=== PATIENT | female | born 1945 | race African-American/Black ===

== ENCOUNTER 2016-02-13 17:31 | Emergency (ER) | payer OTHER ==
[~2016-02-13] VITALS: Ht 168.9 cm; Wt 91.6 kg
[~2016-02-13 17:31] MED LIST: CEFD300C3 PO; CLOP1TAB15 PO; CTP/1 PO; DICL1GEL12 EXT; FERR1TAB13 PO; FURO-85 PO; LISI40TA PO; LORA-741 PO; MELA1CAP5 PO; METO100T14 PO; PANT40TA PO; POTA550T4 PO; ROSU20TA PO
[2016-02-13 17:38] VITALS: TEMP 36.5; Ht 168.9 cm; Wt 91.6 kg
--- NOTE | 2016-02-13 20:30 | EMERGENCY ROOM VISIT NOTE ---
History Report prepared by [place]: Harper Miller Under the Supervision of: Dr. Stephanie Bethea M.D. First contact with patient: 19:58 Chief Complaint: RIB PAIN Stated Complaint: PAIN, RT RIBS History of Present Illness The patient is a 70 year old female who presents to the Emergency Room with complaints of worsening right lower rib pain for the past 2 weeks. The patient states that she fell because "the bed rails were in the wrong place." She injured her right hip and right lower ribs at that time. She states that her hip pain and bruising have improved, but her rib pain has not. She rates her current pain as a 9/10 in severity. She has been taking Dilaudid for pain and states that it was helping, but today she ran out of her pain medication. Source of History: patient Onset: 2 weeks ago Position: other (right lower ribs) Symptom Intensity: 9/10 Timing: worsening Modifying Factors (Relieving): narcotics (Dilaudid) Review of Systems See HPI for pertinent positives & negatives. A total of 10 systems reviewed and were otherwise negative. 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 (13) loose glenoid (14) Opioid Dependence-Unspec (15) Other Chronic Pain (16) Pure Hypercholesterolem (17) Recurrent falls (18) Rheumatoid arthritis (19) Sleep apnea Surgical Problems: (1) Cholecystectomy (2) Hysterectomy Family History Diabetes mellitus FH: heart disease Hypertension Kidney disease Kidney stones Seizures Stroke Social History Smoking Status: Never Smoker Alcohol Use: none Drug Use: none Marital Status: Housing Status: lives alone Occupation Status: retired Current/Historical Medications Scheduled Amlodipine (Norvasc), 5 MG PO QAM Aspirin (Aspirin 81), 1 TAB PO QAM Cefdinir (Cefdinir), 300 MG PO BID Citalopram (Citalopram Hydrobromide), 40 MG PO QAM Clonidine Hcl (Catapres), 0.1 MG PO BID Clopidogrel (Plavix), 75 MG PO DAILY Docusate Sodium (Docusate Sodium), 1 CAP PO QAM Ferrous Sulfate (Kp Ferrous Sulfate), 1 TAB PO BID Furosemide (Lasix), 1 TAB PO DAILY Gabapentin (Gabapentin), 600 MG PO BID Hydromorphone Hcl (Hydromorphone Hcl), 4 MG PO BID Ipratropium-Albuterol (Combivent Respimat), 2 PUFF INH QID Lisinopril (Prinivil), 40 MG PO QAM Lorazepam (Ativan), 0.5 MG PO TID Asokbndlj-Rzwltesa-Xqsctaexg-P (Sleep), 10 MG PO HS Metoprolol Tartrate (Lopressor) (Lopressor), 100 MG PO QPM Pantoprazole (Protonix), 40 MG PO QAM Potassium Gluconate (Potassium Gluconate), 550 MG PO QAM Rosuvastatin Calcium (Crestor), 20 MG PO QAM Sitagliptin-Metformin Hcl (Janumet), 1 TAB PO BID Scheduled PRN Diclofenac Sodium (Topical) (Voltaren 1% Top Gel), 1 APPLN EXT QID PRN for Pain Ipratropium-Albuterol (Duoneb), 1 TREATMENT INH Q6 PRN for SOB/Wheezing Polyethylene Glycol 3350 (Miralax), 17 GM PO HS PRN for Constipation Allergies Coded Allergies: Cephalosporins (Verified Allergy, Unknown, RINGING OF EARS,FALLING BALANCE ISSUES, 02/13/16) Prochlorperazine (Verified Allergy, Unknown, STROKE LIKE SYMPTOMS, CAN'T TALK, 02/13/16) Morphine (Verified Adverse Reaction, Unknown, NOT EFFECTIVE, 02/13/16) Tramadol (Verified Adverse Reaction, Unknown, UNSTEADY ON FEET, HYPERACTIVITYY, 02/13/16) Physical Exam Vital Signs Date Time Temp Pulse Resp B/P Pulse Ox O2 Delivery O2 Flow Rate FiO2 02/13/16 22:00 86 20 143/74 97 Room Air 02/13/16 20:00 104 20 131/82 98 Room Air 02/13/16 17:38 36.5 97 18 118/66 97 Room Air Physical Exam Vital signs reviewed. General: Well-appearing 70 year old female, in no significant distress. HEENT: No scleral icterus, PERRLA, neck supple. Atraumatic. Cardiovascular: Regular rate and rhythm, no extra sounds. Pulmonary: Clear to auscultation bilaterally, normal work of breathing. Abdomen: Soft, nontender, nondistended, positive bowel sounds. Musculoskeletal: Atraumatic, no peripheral edema. Tender over the right flank. Neurologic: Patient awake alert and oriented x 3, full strength in all 4 extremities. Cranial nerves 2 through 12 grossly intact. Ambulatory Skin: Warm, dry, no rash Medical Decision & Procedures ER Provider Diagnostic Interpretation: Radiology results as stated below per my review and radiologist interpretation: RIGHT RIBS UNILATERAL WITH PA CHEST CLINICAL HISTORY: Right posterior lower rib pain following fall. COMPARISON STUDY: Chest radiograph and chest CT October 01, 2015. FINDINGS: There is no pneumothorax or pleural effusion. Pulmonary vascularity is normal. Lungs are clear. Cardiomediastinal silhouette is stable. An IVC filter is noted. No acute right rib fractures are identified although study is mildly compromised due to difficulty with positioning. IMPRESSION: No pneumothorax. No acute right rib fractures identified although sensitivity diminished due to difficulty with positioning. Electronically signed by: Jerome Lowry M.D. 02/13/2016 9:27 PM Medications Administered Medications (Trade) Dose Ordered Sig/Krystal Route Start Time Stop Time Status Last Admin Dose Admin Hydromorphone HCl (Dilaudid Tab) 4 mg NOW STAT PO 02/13/16 21:32 02/13/16 21:33 DC 02/13/16 21:37 4 MG ED Course 1957: Past medical records reviewed. The patient was evaluated in room C12B. A complete history and physical examination was performed. 2131: Dilaudid 4 mg PO 2230: I reassessed the patient at this time. She is feeling better and resting comfortably. I discussed the results and treatment plan with the patient. I answered all pertaining questions that she had. She expressed understanding and verbalized agreement. The patient will be discharged home. Medical Decision Differential diagnoses includes rib fracture, pneumonia, pleural effusion, muscular strain, pneumothorax. This pt was evaluated and appeared to be in no distress. CXR w ribs was performed and reveals no acute injury. Pt was given dilaudid 4 mg po. She in on a no narcs scripts treatment plan from our dept. I discussed the situation with the pt after looking her up on PDMP. Pt states her PCP does not Rx her narcotics and she was "booted" from pain management d/t overuse of her medications. I do not feel comfortable Rx narcotics from the ED. She will f/u with her PCP and return to the ED for worsening of sx or any medical concerns. Impression Primary Impression: Rib pain on right side Scribe Attestation The scribe's documentation has been prepared under my direction and personally reviewed by me in its entirety. I confirm that the note above accurately reflects all work, treatment, procedures, and medical decision making performed by me. Departure Information Dispostion Home / Self-Care Referrals Peter Garcia M.D. (PCP) Forms HOME CARE DOCUMENTATION FORM, IMPORTANT VISIT INFORMATION, WORK / SCHOOL INSTRUCTIONS Patient Instructions A Signature Page, My [facility] Additional Instructions Diagnosis: Right sided rib pain Contact your physician or pharmacy tomorrow regarding refills of your pain medication. Warm compresses and gentle stretching for relief of her discomfort. Deep breathing and coughing several times every hour while awake to prevent pneumonia Follow-up with your physician this week for reevaluation if symptoms persist. Return to the emergency department for worsening of symptoms or any medical concerns.
--- NOTE | 2016-02-13 21:29 | DIAGNOSTIC IMAGING REPORT ---
RIGHT RIBS UNILATERAL WITH PA CHEST CLINICAL HISTORY: Right posterior lower rib pain following fall. COMPARISON STUDY: Chest radiograph and chest CT October 01, 2015. FINDINGS: There is no pneumothorax or pleural effusion. Pulmonary vascularity is normal. Lungs are clear. Cardiomediastinal silhouette is stable. An IVC filter is noted. No acute right rib fractures are identified although study is mildly compromised due to difficulty with positioning. IMPRESSION: No pneumothorax. No acute right rib fractures identified although sensitivity diminished due to difficulty with positioning. Electronically signed by: Jerome Lowry M.D. 02/13/2016 9:27 PM
[2016-02-13] MEDS ORDERED: HYDROmorphone HCL 2 MG TAB PO STA (21:32)
[2016-02-13 22:00] VITALS: BP 143/74; PULSE 86; O2SAT 97
[2016-05-18] MEDS ORDERED: CITA40TA4 PO (00:53)
[2016-05-18] MEDS ORDERED: IPRASOL4 NEB (02:54)
[2016-05-18] MEDS ORDERED: GABA1CAP4 PO (10:16)
[2016-05-18] MEDS ORDERED: SITA50TA5 PO (10:16)
[2016-05-18] MEDS ORDERED: POLY335019 PO (10:21)
[2016-05-18] MEDS ORDERED: AMLO-110 PO (11:54)
[2016-05-18] MEDS ORDERED: DOCU100C31 PO (11:54)
[2016-05-18] MEDS ORDERED: POTA1TAB PO (13:41)
[2016-05-18] MEDS ORDERED: MAGN400T6 PO (13:51)
[2016-05-18] MEDS ORDERED: MELA1TAB54 PO (13:51)
[2016-05-18] MEDS ORDERED: ZOLP5TAB PO (14:59)
[2016-05-18] MEDS ORDERED: IPRA1AER2 INH (16:29)
[2016-05-18] MEDS ORDERED: ASPI-435 PO (18:16)
[2016-05-18] MEDS ORDERED: ATV5X PO (20:36)
[2016-05-18] MEDS ORDERED: METO100T14 PO (20:36)
[2016-05-18] MEDS ORDERED: HYDR2TAB2 PO (20:37)
[2016-05-18] MEDS ORDERED: LSX40 PO (20:37)
[2016-05-18] MEDS ORDERED: DICL1GEL34 TOP (20:39)
[2016-05-18] MEDS ORDERED: PRT/40 PO (20:40)
[2016-05-18] MEDS ORDERED: ROSU20TA22 PO (20:40)
[2016-05-18] MEDS ORDERED: LINE1TAB2 PO (20:41)
[2016-05-18] MEDS ORDERED: PLV75 PO (20:41)
[2016-05-18] MEDS ORDERED: LSN40 PO (20:42)
[2016-05-18] MEDS ORDERED: FERR325T5 PO (20:46)
[2016-05-18] MEDS ORDERED: ASPI81TA28 PO (21:07)
[2016-05-18] MEDS ORDERED: CTP1CL PO (21:08)
[2016-05-20] MEDS ORDERED: MAGN400T6 PO (10:05)
[2016-05-20] MEDS ORDERED: FAMO20TA12 PO (10:05)
[2016-07-18] MEDS ORDERED: MAGN400T6 PO (14:23)
== END 2016-02-13 22:30 | disposition home or self-care (01) ==
LOC: C.EDB 17:33 → C.EDC 22:30
DX: R07.81 Pleurodynia (principal); W19.XXXA Unspecified fall, initial encounter; J45.909 Unspecified asthma, uncomplicated; I50.9 Heart failure, unspecified; G89.29 Other chronic pain; M54.9 Dorsalgia, unspecified; E11.9 Type 2 diabetes mellitus without complications; M10.9 Gout, unspecified; I10 Essential (primary) hypertension; E78.00 Pure hypercholesterolemia, unspecified; M06.9 Rheumatoid arthritis, unspecified; G47.30 Sleep apnea, unspecified; Z90.49 Acquired absence of other specified parts of digestive tract; Z90.710 Acquired absence of both cervix and uterus; Z83.3 Family history of diabetes mellitus; Z82.49 Family history of ischemic heart disease and other diseases of the circulatory system; Z82.0 Family history of epilepsy and other diseases of the nervous system; Z79.82 Long term (current) use of aspirin; Z79.899 Other long term (current) drug therapy

== ENCOUNTER 2016-03-07 19:03 | Emergency (ER) | payer OTHER ==
[~2016-03-07] VITALS: Ht 170.2 cm; Wt 91.0 kg
[2016-03-07 19:08] VITALS: TEMP 36.5; Ht 170.2 cm; Wt 91.0 kg
--- NOTE | 2016-03-07 19:28 | EMERGENCY ROOM VISIT NOTE ---
History Report prepared by [place]: Devan Sanchez Under the Supervision of: Dr. Anand Renner M.D. First contact with patient: 19:15 Chief Complaint: PAIN (GENERALIZED) Stated Complaint: PAIN, LOST APETITE, WEAK History of Present Illness The patient is a 71 year old female who presents to the Emergency Room with complaints of persistent left shoulder pain that began many years ago. She has a history of surgery on that shoulder and wears a shoulder brace 24 hours per day. She says she ran out of pain medicine 2 days ago and wants pain medicine. The patient saw Dr. Dang, and the doctor sent the patient to see a doctor in [place]. She says that she had episodes of diarrhea yesterday morning, and then proceeded to go to [place] to see the doctor. The doctor said that he could do surgery on March 25, but there is still concern over an infection the patient has been having. The patient is diabetic. Source of History: patient Onset: Many years ago Position: shoulder (right) Symptom Intensity: bad enough that she wants more pain medicine Timing: other (persistent) Note: No associated symptoms noted. Review of Systems See HPI for pertinent positives & negatives. A total of 10 systems reviewed and were otherwise negative. 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 (13) loose glenoid (14) Opioid Dependence-Unspec (15) Other Chronic Pain (16) Pure Hypercholesterolem (17) Recurrent falls (18) Rheumatoid arthritis (19) Sleep apnea Surgical Problems: (1) Cholecystectomy (2) Hysterectomy Family History Diabetes mellitus FH: heart disease Hypertension Kidney disease Kidney stones Seizures Stroke Social History Smoking Status: Current Every Day Smoker Alcohol Use: none Drug Use: none Marital Status: Housing Status: lives alone Occupation Status: retired Current/Historical Medications Scheduled Amlodipine (Norvasc), 5 MG PO QAM Aspirin (Aspirin 81), 1 TAB PO QAM Cefdinir (Cefdinir), 300 MG PO BID Citalopram (Citalopram Hydrobromide), 40 MG PO QAM Clonidine Hcl (Catapres), 0.1 MG PO BID Clopidogrel (Plavix), 75 MG PO DAILY Docusate Sodium (Docusate Sodium), 1 CAP PO QAM Ferrous Sulfate (Kp Ferrous Sulfate), 1 TAB PO BID Furosemide (Lasix), 1 TAB PO DAILY Gabapentin (Gabapentin), 600 MG PO BID Hydromorphone Hcl (Hydromorphone Hcl), 4 MG PO BID Ipratropium-Albuterol (Combivent Respimat), 2 PUFF INH QID Lisinopril (Prinivil), 40 MG PO QAM Lorazepam (Ativan), 0.5 MG PO TID Mpzjuxywf-Iqtwsgod-Puljdizec-P (Sleep), 10 MG PO HS Metoprolol Tartrate (Lopressor) (Lopressor), 100 MG PO QPM Pantoprazole (Protonix), 40 MG PO QAM Potassium Gluconate (Potassium Gluconate), 550 MG PO QAM Rosuvastatin Calcium (Crestor), 20 MG PO QAM Sitagliptin-Metformin Hcl (Janumet), 1 TAB PO BID Scheduled PRN Diclofenac Sodium (Topical) (Voltaren 1% Top Gel), 1 APPLN EXT QID PRN for Pain Ipratropium-Albuterol (Duoneb), 1 TREATMENT INH Q6 PRN for SOB/Wheezing Polyethylene Glycol 3350 (Miralax), 17 GM PO HS PRN for Constipation Allergies Coded Allergies: Cephalosporins (Verified Allergy, Unknown, RINGING OF EARS,FALLING BALANCE ISSUES, 02/13/16) Prochlorperazine (Verified Allergy, Unknown, STROKE LIKE SYMPTOMS, CAN'T TALK, 02/13/16) Morphine (Verified Adverse Reaction, Unknown, NOT EFFECTIVE, 02/13/16) Tramadol (Verified Adverse Reaction, Unknown, UNSTEADY ON FEET, HYPERACTIVITYY, 02/13/16) Physical Exam Vital Signs Date Time Temp Pulse Resp B/P Pulse Ox O2 Delivery O2 Flow Rate FiO2 03/07/16 19:08 36.5 85 16 153/81 96 Room Air Physical Exam CONSTITUTIONAL: No acute distress. HEENT: No icterus, moist mucous membranes NECK: No meningismus, trachea is midline. CARDIOVASCULAR: Regular rate, normal perfusion RESPIRATORY: Unlabored breathing. Clear to auscultation. GASTROINTESTINAL: Non-tender GENITOURINARY: No flank tenderness MUSCULOSKELETAL: Sling to left shoulder, boot to left foot s/p fx NEUROLOGIC: No acute gross focal deficits. PSYCHIATRIC: Normal affect SKIN: Normal for ethnicity. Medical Decision & Procedures ED Course 1916: Past medical records reviewed. The patient was evaluated in room C3. A complete history and physical examination was performed. The patient verbally expressed understanding and agreement of the treatment plan. The patient will be discharged. Medical Decision Differential diagnoses include: opiate dependence, addiction. 71-year-old noted to be on our ED treatment plan with multiple orthopedic injuries and complaints presents to ED because she has run out of her pain medications like more in the emergency room tonight. Her preference is to be admitted to the hospital for her pain, in fact. She has no acute complaints. She was advised that she is to arrange for all non-emergent analgesic needs to be obtained through her primary doctor. Case management spoke with patient about available resources and importance of following up with her doctor. Impression Primary Impression: Chronic pain Scribe Attestation The scribe's documentation has been prepared under my direction and personally reviewed by me in its entirety. I confirm that the note above accurately reflects all work, treatment, procedures, and medical decision making performed by me. Departure Information Dispostion Home / Self-Care Referrals Radha Gonzalez (PCP) Forms HOME CARE DOCUMENTATION FORM, IMPORTANT VISIT INFORMATION, WORK / SCHOOL INSTRUCTIONS Patient Instructions Chronic Pain, My [facility]
[2016-03-07] MEDS ORDERED: TPRSR/100 PO (19:30)
[2016-03-07 20:00] VITALS: BP 116/62; PULSE 74; O2SAT 97
[2016-05-18] MEDS ORDERED: CITA40TA4 PO (00:53)
[2016-05-18] MEDS ORDERED: IPRASOL4 NEB (02:54)
[2016-05-18] MEDS ORDERED: GABA1CAP4 PO (10:16)
[2016-05-18] MEDS ORDERED: SITA50TA5 PO (10:16)
[2016-05-18] MEDS ORDERED: POLY335019 PO (10:21)
[2016-05-18] MEDS ORDERED: AMLO-110 PO (11:54)
[2016-05-18] MEDS ORDERED: DOCU100C31 PO (11:54)
[2016-05-18] MEDS ORDERED: POTA1TAB PO (13:41)
[2016-05-18] MEDS ORDERED: MELA1TAB54 PO (13:51)
[2016-05-18] MEDS ORDERED: MAGN400T6 PO (13:51)
[2016-05-18] MEDS ORDERED: ZOLP5TAB PO (14:59)
[2016-05-18] MEDS ORDERED: IPRA1AER2 INH (16:29)
[2016-05-18] MEDS ORDERED: ASPI-435 PO (18:16)
[2016-05-18] MEDS ORDERED: METO100T14 PO (20:36)
[2016-05-18] MEDS ORDERED: ATV5X PO (20:36)
[2016-05-18] MEDS ORDERED: LSX40 PO (20:37)
[2016-05-18] MEDS ORDERED: HYDR2TAB2 PO (20:37)
[2016-05-18] MEDS ORDERED: DICL1GEL34 TOP (20:39)
[2016-05-18] MEDS ORDERED: ROSU20TA22 PO (20:40)
[2016-05-18] MEDS ORDERED: PRT/40 PO (20:40)
[2016-05-18] MEDS ORDERED: PLV75 PO (20:41)
[2016-05-18] MEDS ORDERED: LINE1TAB2 PO (20:41)
[2016-05-18] MEDS ORDERED: LSN40 PO (20:42)
[2016-05-18] MEDS ORDERED: FERR325T5 PO (20:46)
[2016-05-18] MEDS ORDERED: ASPI81TA28 PO (21:07)
[2016-05-18] MEDS ORDERED: CTP1CL PO (21:08)
[2016-05-20] MEDS ORDERED: MAGN400T6 PO (10:05)
[2016-05-20] MEDS ORDERED: FAMO20TA12 PO (10:05)
[2016-07-18] MEDS ORDERED: MAGN400T6 PO (14:23)
== END 2016-03-07 20:02 | disposition home or self-care (01) ==
LOC: C.EDB 19:05 → C.EDC 20:02
DX: G89.29 Other chronic pain (principal); F17.200 Nicotine dependence, unspecified, uncomplicated; J45.909 Unspecified asthma, uncomplicated; M79.661 Pain in right lower leg; I50.9 Heart failure, unspecified; E11.9 Type 2 diabetes mellitus without complications; I10 Essential (primary) hypertension; E78.00 Pure hypercholesterolemia, unspecified; G47.30 Sleep apnea, unspecified; Z79.82 Long term (current) use of aspirin

== ENCOUNTER → 2016-03-15 | Outpatient (CLI) | payer OTHER ==
[~2016-03-15] MED LIST changes: +AMLO-110 PO; +ASPI-435 PO; +ASPI81TA28 PO; +ATV5X PO; +BISA-49 PO; +CITA40TA4 PO; +CTP1CL PO; +DICL1GEL34 TOP; +DICY20TA35 PO; +DOCU100C31 PO; +DULO60CA44 PO; +FAMO1TAB47 PO; +FAMO20TA12 PO; +FERR325T5 PO; +FRS/40 PO; +GABA1CAP4 PO; +HYDR2TAB2 PO; +INSDGI SC; +INSU3INJ3 SC; +IPRA1AER2 INH; +IPRASOL4 NEB; +LEVO-17 PO; +LINE1TAB2 PO; +LINE600T5 PO; +LSN40 PO; +LSX40 PO; +MAGN400T6 PO; +MELA1TAB54 PO; +NF656; +ONDA4TAB10 SL; +PLV75 PO; +POLY335019 PO; +POTA1TAB PO; +PRT/40 PO; +ROSU20TA22 PO; +SENN-61 PO; +SITA50TA5 PO; +TPRSR/100 PO; +ZOLP5TAB PO; +[UNRECOGNIZED DRUG - CODE] IVF
--- NOTE | 2016-03-15 19:12 | DIAGNOSTIC IMAGING REPORT ---
BILATERAL LOWER EXTREMITY VENOUS DOPPLER HISTORY: Pain. Edema. Z01.811,E11.9,Z87.448,M79.89 COMPARISON STUDY: 06/24/2012 FINDINGS: There is normal compressibility, flow, and augmentation within the bilateral lower extremity deep venous systems. IMPRESSION: No DVT within the right or left lower extremity. Electronically signed by: Carl Dent M.D. 03/15/2016 7:10 PM Dictated Date/Time: 03/15/2016 7:09 PM
--- NOTE | 2016-03-19 13:41 | CODING QUERY MEDICAL NECESSITY ---
SUPPORTING DIAGNOSIS NEEDED A supporting diagnosis is required for the test/procedure performed on this patient in order for us to be reimbursed by the patient's insurance. Please provide a supporting diagnosis for the following test/procedure listed below next to the test name along with your signature. *If there is no additional diagnosis for this patient that would support the following test/procedure please document that below next to the test/procedure. Test(s)/Procedure(s) that require a supporting diagnosis: * VENOUS DOPPLER LOWER EXTREMITY DIAGNOSIS: * DOS: 03/15/16 Provider Signature: Date: Thank you Padmini Tsang Health Information Management Once completed, please kindly fax back to [phone] For questions please call [phone]
== END | disposition home or self-care (01) ==
LOC: C.ULTR 18:16
PROVIDERS: ATTEND Family Medicine
DX: Z01.811 Encounter for preprocedural respiratory examination (principal); E11.9 Type 2 diabetes mellitus without complications; Z87.448 Personal history of other diseases of urinary system; M79.89 Other specified soft tissue disorders

== ENCOUNTER → 2016-03-18 | Outpatient (CLI) | payer OTHER ==
--- NOTE | 2016-03-18 11:17 | DIAGNOSTIC IMAGING REPORT ---
CHEST 2 VIEWS ROUTINE CLINICAL HISTORY: PRE OP preoperative evaluation COMPARISON STUDY: No previous studies for comparison. FINDINGS: The bones soft tissues and hemidiaphragms are normal. The cardiomediastinal silhouette is normal. The lungs are clear. The pulmonary vasculature is normal. IMPRESSION: Negative chest. Electronically signed by: Carl Dent M.D. 03/18/2016 11:15 AM Dictated Date/Time: 03/18/2016 11:15 AM
[2016-03-18 11:32] LABS: ESTIMATED AVERAGE GLUCOSE 189 mg/dl; HA1C FLAG Normal (Normal)
== END | disposition home or self-care (01) ==
LOC: C.RAD 10:18
PROVIDERS: ATTEND Family Medicine
DX: Z01.811 Encounter for preprocedural respiratory examination (principal); Z01.812 Encounter for preprocedural laboratory examination; Z68.33 Body mass index [BMI] 33.0-33.9, adult; E11.9 Type 2 diabetes mellitus without complications; M25.512 Pain in left shoulder; G89.29 Other chronic pain

== ENCOUNTER 2016-04-02 14:34 | Day surgery (SDC) | payer OTHER ==
[~2016-04-02] VITALS: Ht 168.9 cm; Wt 91.5 kg
[~2016-04-02 14:34] MED LIST changes: -AMLO-110 PO; -ASPI-435 PO; -ASPI81TA28 PO; -ATV5X PO; -BISA-49 PO; -CITA40TA4 PO; -CTP1CL PO; -DICL1GEL34 TOP; -DICY20TA35 PO; -DOCU100C31 PO; -DULO60CA44 PO; -FAMO1TAB47 PO; -FAMO20TA12 PO; -FERR325T5 PO; -FRS/40 PO; -GABA1CAP4 PO; -HYDR2TAB2 PO; -INSDGI SC; -INSU3INJ3 SC; -IPRA1AER2 INH; -IPRASOL4 NEB; -LEVO-17 PO; -LINE1TAB2 PO; -LINE600T5 PO; -LSN40 PO; -LSX40 PO; -MAGN400T6 PO; -MELA1TAB54 PO; -METO100T14 PO; -NF656; -ONDA4TAB10 SL; -PLV75 PO; -POLY335019 PO; -POTA1TAB PO; -PRT/40 PO; -ROSU20TA22 PO; -SENN-61 PO; -SITA50TA5 PO; -ZOLP5TAB PO; -[UNRECOGNIZED DRUG - CODE] IVF
[2016-04-02 14:43] VITALS: BP 130/83; PULSE 100; TEMP 36.7; O2SAT 92; Ht 168.9 cm; Wt 91.5 kg
[2016-04-02] MEDS ORDERED: NF656 (14:59)
[2016-04-02] MEDS ORDERED: NURSING VERBAL MED ORDER ONE ×2 (15:45→16:45)
[2016-04-02] MEDS ORDERED: ALTEPLASE, RECOMBINANT 1 MG/ML 2 ML VIAL IV ONE (16:15)
[2016-04-02 16:47] LABS: BASO % 0.2 %; BASO ABS # 0.02 K/uL (0-0.2); COMPLETE YES; EOS % 1.9 %; IG% 0.4 %; LYMPH ABS # 2.44 K/uL (1.2-3.4); MEAN CELL VOLUME 90.6 fL (80-100); MEAN CORPUSCULAR HEMOGLOBIN 30.7 pg (25-34); MEAN CORPUSCULAR HGB CONC 33.9 g/dl (32-36); MEAN PLATELET VOLUME 9.7 fL (7.4-10.4); MONO % 9.1 %; NEUT % 62.4 %; PLATELET COUNT 278 K/uL (130-400); RED BLOOD COUNT 3.42 M/uL (4.2-5.4); WHITE BLOOD COUNT 9.39 K/uL (4.8-10.8)
[2016-04-02 17:25] LABS: BUN/CREATININE RATIO 10.3 (10-20); C-REACTIVE PROTEIN 3.21 mg/dl (0-0.29); CALCIUM 8.8 mg/dl (8.5-10.1); CREATININE 1.1 mg/dl (0.60-1.20); POTASSIUM 3.1 mmol/L (3.5-5.1)
[2016-05-18] MEDS ORDERED: CITA40TA4 PO (00:53)
[2016-05-18] MEDS ORDERED: IPRASOL4 NEB (02:54)
[2016-05-18] MEDS ORDERED: GABA1CAP4 PO (10:16)
[2016-05-18] MEDS ORDERED: SITA50TA5 PO (10:16)
[2016-05-18] MEDS ORDERED: POLY335019 PO (10:21)
[2016-05-18] MEDS ORDERED: AMLO-110 PO (11:54)
[2016-05-18] MEDS ORDERED: DOCU100C31 PO (11:54)
[2016-05-18] MEDS ORDERED: POTA1TAB PO (13:41)
[2016-05-18] MEDS ORDERED: MAGN400T6 PO (13:51)
[2016-05-18] MEDS ORDERED: MELA1TAB54 PO (13:51)
[2016-05-18] MEDS ORDERED: ZOLP5TAB PO (14:59)
[2016-05-18] MEDS ORDERED: IPRA1AER2 INH (16:29)
[2016-05-18] MEDS ORDERED: ASPI-435 PO (18:16)
[2016-05-18] MEDS ORDERED: METO100T14 PO (20:36)
[2016-05-18] MEDS ORDERED: ATV5X PO (20:36)
[2016-05-18] MEDS ORDERED: HYDR2TAB2 PO (20:37)
[2016-05-18] MEDS ORDERED: LSX40 PO (20:37)
[2016-05-18] MEDS ORDERED: DICL1GEL34 TOP (20:39)
[2016-05-18] MEDS ORDERED: PANT40TA2 PO (20:40)
[2016-05-18] MEDS ORDERED: ROSU20TA22 PO (20:40)
[2016-05-18] MEDS ORDERED: LINE1TAB2 PO (20:41)
[2016-05-18] MEDS ORDERED: PLV75 PO (20:41)
[2016-05-18] MEDS ORDERED: LSN40 PO (20:42)
[2016-05-18] MEDS ORDERED: FERR325T5 PO (20:46)
[2016-05-18] MEDS ORDERED: ASPI81TA28 PO (21:07)
[2016-05-18] MEDS ORDERED: CTP1CL PO (21:08)
[2016-05-20] MEDS ORDERED: MAGN400T6 PO (10:05)
[2016-05-20] MEDS ORDERED: FAMO20TA12 PO (10:05)
[2016-07-18] MEDS ORDERED: MAGN400T6 PO (14:23)
== END 2016-05-13 13:10 | disposition home or self-care (01) ==
LOC: C.MTU 14:34
PROVIDERS: ATTEND Family Medicine
DX: Z45.2 Encounter for adjustment and management of vascular access device (principal); Z86.73 Personal history of transient ischemic attack (TIA), and cerebral infarction without residual deficits; E11.9 Type 2 diabetes mellitus without complications; I10 Essential (primary) hypertension

== ENCOUNTER → 2016-04-22 | Outpatient (CLI) | payer OTHER ==
[~2016-04-22] MED LIST changes: +AMLO-110 PO; +ASPI-435 PO; +ASPI81TA28 PO; +ATV5X PO; +BISA-49 PO; +CITA40TA4 PO; +CTP1CL PO; +DICL1GEL34 TOP; +DICY20TA35 PO; +DOCU100C31 PO; +DULO60CA44 PO; +FAMO1TAB47 PO; +FAMO20TA12 PO; +FERR325T5 PO; +FRS/40 PO; +GABA1CAP4 PO; +HYDR2TAB2 PO; +INSDGI SC; +INSU3INJ3 SC; +IPRA1AER2 INH; +IPRASOL4 NEB; +LEVO-17 PO; +LINE1TAB2 PO; +LINE600T5 PO; +LSN40 PO; +LSX40 PO; +MAGN400T6 PO; +MELA1TAB54 PO; +METO100T14 PO; +NF656; +ONDA4TAB10 SL; +PLV75 PO; +POLY335019 PO; +POTA1TAB PO; +PRT/40 PO; +ROSU20TA22 PO; +SENN-61 PO; +SITA50TA5 PO; +ZOLP5TAB PO; +[UNRECOGNIZED DRUG - CODE] IVF
[2016-04-22 18:16] LABS: BLOOD UREA NITROGEN 12 mg/dl (7-18); CREATININE 0.87 mg/dl (0.60-1.20)
== END | disposition home or self-care (01) ==
LOC: C.LABSPEC 09:16
PROVIDERS: ATTEND Family Medicine
DX: Z79.2 Long term (current) use of antibiotics (principal)

== ENCOUNTER 2016-05-17 11:45 | Emergency (ER) | payer OTHER ==
[~2016-05-17] VITALS: Ht 167.6 cm; Wt 87.3 kg
[~2016-05-17 11:45] MED LIST changes: -AMLO-110 PO; -ASPI-435 PO; -ASPI81TA28 PO; -ATV5X PO; -BISA-49 PO; -CITA40TA4 PO; -CTP1CL PO; -DICL1GEL34 TOP; -DICY20TA35 PO; -DOCU100C31 PO; -DULO60CA44 PO; -FAMO1TAB47 PO; -FAMO20TA12 PO; -FERR325T5 PO; -FRS/40 PO; -GABA1CAP4 PO; -HYDR2TAB2 PO; -INSDGI SC; -INSU3INJ3 SC; -IPRA1AER2 INH; -IPRASOL4 NEB; -LEVO-17 PO; -LINE1TAB2 PO; -LINE600T5 PO; -LSN40 PO; -LSX40 PO; -MAGN400T6 PO; -MELA1TAB54 PO; -METO100T14 PO; -ONDA4TAB10 SL; -PLV75 PO; -POLY335019 PO; -POTA1TAB PO; -PRT/40 PO; -ROSU20TA22 PO; -SENN-61 PO; -SITA50TA5 PO; -ZOLP5TAB PO; -[UNRECOGNIZED DRUG - CODE] IVF
[2016-05-17 11:50] VITALS: TEMP 36.6; Ht 167.6 cm; Wt 87.3 kg
[2016-05-17] MEDS ORDERED: HYDROmorphone INJ 1 MG/ML SYR IV STA ×2 (12:24→14:08)
[2016-05-17] MEDS ORDERED: SODIUM CHLORIDE 0.9% 1000ML 1,000 ML IV STA ×2 (12:24→12:33)
[2016-05-17] MEDS ORDERED: ONDANSETRON INJ 2 MG/ML 2 ML VIAL IV STA (12:24)
--- NOTE | 2016-05-17 12:32 | EMERGENCY ROOM VISIT NOTE ---
History First contact with patient: 12:13 Chief Complaint: DIARRHEA Stated Complaint: DIARRHEA, BACK PAIN Nursing Triage Summary: Triage note: Pt reports diarrhea since friday night. pt reports nausea, vomitting and abd pain "i have chronic pain syndrome in my back and left shoulder." History of Present Illness The patient is a 71 year old female who presents to the Emergency Room with complaints of diarrhea. The patient states that she has had diarrhea for the last 3 days. She states she has not had any vomiting but has felt nauseated. She reports diffuse abdominal discomfort. She rates her discomfort a 10/10. The patient also reports chronic and severe pain in the left shoulder. The patient was discharged March 25 from [facility] after shoulder surgery to remove an implant in the left shoulder. She states she has had infection in that shoulder and had a PICC line and was recently switched to an oral antibiotic. She denies any fevers. She denies any shortness of breath. She denies any recent illness. She denies any history of C. difficile. Review of Systems A 10 system review of systems was completed with positives and pertinent negatives listed in the HPI. 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 (13) loose glenoid (14) Opioid Dependence-Unspec (15) Other Chronic Pain (16) Pure Hypercholesterolem (17) Recurrent falls (18) Rheumatoid arthritis (19) Sleep apnea Surgical Problems: (1) Cholecystectomy (2) Hysterectomy Family History Diabetes mellitus FH: heart disease Hypertension Kidney disease Kidney stones Seizures Stroke Social History Smoking Status: Never Smoker Alcohol Use: none Drug Use: none Marital Status: Housing Status: lives alone Occupation Status: retired Current/Historical Medications Scheduled Amlodipine (Norvasc), 5 MG PO QAM Aspirin (Aspirin 81), 1 TAB PO QAM Citalopram (Citalopram Hydrobromide), 40 MG PO DAILY Clonidine Hcl (Catapres), 0.1 MG PO BID Clopidogrel (Plavix), 75 MG PO DAILY Docusate Sodium (Docusate Sodium), 1 CAP PO QAM Ferrous Sulfate (Kp Ferrous Sulfate), 1 TAB PO BID Furosemide (Lasix), 40 MG PO DAILY Gabapentin (Gabapentin), 600 MG PO TID Hydromorphone Hcl (Hydromorphone Hcl), 4 MG PO BID Ipratropium-Albuterol (Combivent Respimat), 2 PUFF INH QID Linezolid (Zyvox), 600 MG PO Q12 Lisinopril (Prinivil), 40 MG PO QAM Lorazepam (Ativan), 0.5 MG PO TID Magnesium Oxide (Mag-Ox), 400 MG PO QPM Melatonin (Melatonin), 10 MG PO HS Metoprolol Succinate (Metoprolol Succinate ER), 100 MG PO DAILY Pantoprazole (Protonix), 40 MG PO QAM Potassium Gluconate (Potassium Gluconate), 550 MG PO QAM Potassium Gluconate (Potassium Gluconate), 297.5 MG PO DAILY Rosuvastatin Calcium (Crestor), 20 MG PO HS Sitagliptin-Metformin Hcl (Janumet), 1 TAB PO BID Scheduled PRN Diclofenac Sodium (Topical) (Voltaren 1% Top Gel), 1 APPLN EXT QID PRN for Pain Ipratropium-Albuterol (Duoneb), 1 TREATMENT INH Q6 PRN for SOB/Wheezing Polyethylene Glycol 3350 (Miralax), 17 GM PO HS PRN for Constipation Zolpidem Tartrate (Ambien), 1 TAB PO HS PRN for Insomnia Miscellaneous Medications Lidocaine (Lidoderm Patch 5%) Allergies Coded Allergies: Cephalosporins (Verified Allergy, Unknown, RINGING OF EARS,FALLING BALANCE ISSUES, 04/02/16) Prochlorperazine (Verified Allergy, Unknown, STROKE LIKE SYMPTOMS, CAN'T TALK, 04/02/16) Morphine (Verified Adverse Reaction, Unknown, NOT EFFECTIVE, 04/02/16) Tramadol (Verified Adverse Reaction, Unknown, UNSTEADY ON FEET, HYPERACTIVITYY, 04/02/16) Physical Exam Vital Signs Date Time Temp Pulse Resp B/P Pulse Ox O2 Delivery O2 Flow Rate FiO2 05/17/16 17:17 84 16 154/94 97 05/17/16 16:07 90 20 175/121 95 Room Air 05/17/16 14:36 86 18 193/104 97 Room Air 05/17/16 13:37 87 05/17/16 13:22 88 18 184/107 97 Room Air 05/17/16 11:50 36.6 92 18 179/88 93 Room Air Physical Exam VITALS: Vitals are noted on the nurse's note and reviewed by myself. Vital signs stable. The patient is afebrile. GENERAL: This is a 71-year-old female, in no acute distress, nondiaphoretic, well-developed well-nourished. SKIN: The skin was without rashes, erythema, or bruising. There is a well- healed surgical incision to the left shoulder. There is no erythema, warmth or drainage. There is no tenting of the skin. Capillary reflex less than 2 seconds. HEAD: Normocephalic atraumatic. EARS: The external ears are normal in appearance. EYES: Pupils equal round and reactive to light and accommodation. Conjunctivae without injection, sclerae without icterus. Extraocular movements intact. NOSE: Patent, turbinates without inflammation or discharge. MOUTH: Mucous membranes moist. Tonsils are not enlarged. Pharynx without erythema or exudate. Uvula midline. Airway patent. Tongue does not deviate. NECK: Supple without nuchal rigidity. No JVD. HEART: Regular rate and rhythm without murmurs gallops or rubs. LUNGS: Clear to auscultation bilaterally without wheezes, rales or rhonchi. No retractions or accessory muscle use. ABDOMEN: Positive bowel sounds x 4. Soft, mild diffuse tenderness, without masses or organomegaly. MUSCULOSKELETAL: No muscle atrophy, erythema, or edema noted. Full range of motion in all extremities. Normal gait. Strength 5/5 throughout. NEURO: Patient was alert and oriented to person place and time. No focal neurological deficits. Medical Decision & Procedures Laboratory Results 05/17/16 13:05 Red Blood Count 4.34, Mean Corpuscular Volume 86.9, Mean Corpuscular Hemoglobin 30.6, Mean Corpuscular Hemoglobin Concent 35.3, Mean Platelet Volume 11.0, Neutrophils (%) (Auto) 71.6, Lymphocytes (%) (Auto) 21.2, Monocytes (%) (Auto) 6.2, Eosinophils (%) (Auto) 0.7, Basophils (%) (Auto) 0.1, Neutrophils # (Auto) 7.37, Lymphocytes # (Auto) 2.18, Monocytes # (Auto) 0.64, Eosinophils # (Auto) 0.07, Basophils # (Auto) 0.01 05/17/16 13:05 05/17/16 14:01 Test 05/17/16 13:05 05/17/16 14:01 White Blood Count 10.29 K/uL (4.8-10.8) Red Blood Count 4.34 M/uL (4.2-5.4) Hemoglobin 13.3 g/dL (12.0-16.0) Hematocrit 37.7 % (37-47) Mean Corpuscular Volume 86.9 fL (80-100) Mean Corpuscular Hemoglobin 30.6 pg (25-34) Mean Corpuscular Hemoglobin Concent 35.3 g/dl (32-36) Platelet Count 110 K/uL (130-400) Mean Platelet Volume 11.0 fL (7.4-10.4) Neutrophils (%) (Auto) 71.6 % Lymphocytes (%) (Auto) 21.2 % Monocytes (%) (Auto) 6.2 % Eosinophils (%) (Auto) 0.7 % Basophils (%) (Auto) 0.1 % Neutrophils # (Auto) 7.37 K/uL (1.4-6.5) Lymphocytes # (Auto) 2.18 K/uL (1.2-3.4) Monocytes # (Auto) 0.64 K/uL (0.11-0.59) Eosinophils # (Auto) 0.07 K/uL (0-0.5) Basophils # (Auto) 0.01 K/uL (0-0.2) RDW Standard Deviation 43.9 fL (36.4-46.3) RDW Coefficient of Variation 14.0 % (11.5-14.5) Immature Granulocyte % (Auto) 0.2 % Immature Granulocyte # (Auto) 0.02 K/uL (0.00-0.02) Anion Gap 11.0 mmol/L (3-11) Est Creatinine Clear Calc Drug Dose 66.6 ml/min Estimated GFR () 79.3 Estimated GFR (Non- 68.5 BUN/Creatinine Ratio 16.6 (10-20) Calcium Level 9.4 mg/dl (8.5-10.1) Total Bilirubin 0.8 mg/dl (0.2-1) Alanine Aminotransferase (ALT/SGPT) 22 U/L (12-78) Alkaline Phosphatase 114 U/L (45-117) Total Protein 8.4 gm/dl (6.4-8.2) Albumin 4.0 gm/dl (3.4-5.0) Globulin 4.4 gm/dl (2.5-4.0) Albumin/Globulin Ratio 0.9 (0.9-2) Lipase 124 U/L (73-393) Magnesium Level 1.4 mg/dl (1.8-2.4) Aspartate Amino Transf (AST/SGOT) 17 U/L (15-37) Medications Administered Medications (Trade) Dose Ordered Sig/Krystal Route Start Time Stop Time Status Last Admin Dose Admin Hydromorphone HCl (Dilaudid Inj) 1 mg NOW STAT IV 05/17/16 12:24 05/17/16 12:26 DC 05/17/16 13:16 1 MG Ondansetron HCl 4 mg 4 mg NOW STAT IV 05/17/16 12:24 05/17/16 12:26 DC 05/17/16 13:15 4 MG Sodium Chloride (Nss 1000ml) 1,000 ml @ 125 mls/hr Q8H STAT IV 05/17/16 12:33 05/17/16 18:49 DC 05/17/16 13:21 125 MLS/HR Hydromorphone HCl (Dilaudid Inj) 1 mg NOW STAT IV 05/17/16 14:08 05/17/16 14:09 DC 05/17/16 14:34 1 MG Magnesium Sulfate (Magnesium Sulfate) 1 gm NOW STAT IV 05/17/16 14:49 05/17/16 14:50 DC 05/17/16 15:31 1 GM Clonidine HCl (Catapres Tab) 0.1 mg NOW ONCE PO 05/17/16 15:15 05/17/16 15:16 DC 05/17/16 15:31 0.1 MG Hydromorphone HCl (Dilaudid Inj) 0.5 mg NOW STAT IV 05/17/16 16:30 05/17/16 16:31 DC 05/17/16 17:16 0.5 MG ED Course The patient was seen and examined. Previous visits were reviewed. The patient does not have a fever or leukocytosis. She does not have any significant change in her BUN and creatinine. Magnesium was low at 1.4. Glucose was 150. She is a diabetic. Lipase was not elevated. The patient was gently hydrated with normal saline She was initially given 1 mg IV Dilaudid and 4 g IV Zofran with no significant improvement in her pain She was then given an additional 1 mg IV Dilaudid. She was hypertensive and stated she did not take any of her medications this morning. She was given 0.1 mg clonidine which she does take at home. Her blood pressure improved. She was given 1 g IV magnesium The patient was given an additional 0.5 mg IV Dilaudid prior to discharge. The patient presents to the emergency department with multiple complaints. Most notably, she complains of chronic diffuse abdominal pain, chronic shoulder pain and diarrhea. The patient states that she has been out of her Dilaudid since last week. She states she is waiting to follow-up with pain management. She reports having significant diarrhea but throughout her stay in the emergency department she was not able to provide a stool sample. I did review the prescription drug monitoring website. The patient has still multiple prescriptions for Dilaudid last month. The patient is on a no narcotic prescription treatment protocol. I advised her that I was not comfortable prescribing any narcotics. She acknowledged understanding. She was found to have hypomagnesemia. She does take magnesium home. She was given 1 g IV magnesium. Additionally, the patient's blood pressure was elevated. She did not take any of her antihypertensive medications this morning. She was given 0.1 mg Catapres and her blood pressure improved. She should contact her family doctor to follow-up for further evaluation and management. She should contact pain management and states that she was given 2 different phone numbers to call to attempt to get in with pain management. She should return with any worsening symptoms. The patient was also seen and examined by who agrees with the assessment and treatment plan. Medical Decision DIFFERENTIAL DIAGNOSIS: Hepatitis, cholecystitis, cholangitis, biliary colic, pancreatitis, pneumonia, subdiaphragmatic abscess, appendicitis, inguinal hernia , nephrolithiasis, inflammatory bowel disease, mesenteric adenitis, peptic ulcer disease, GERD, gastritis, pancreatitis, myocardial infarction, pericarditis, ruptured aortic aneurysm, appendicitis, gastroenteritis, bowel obstruction, splenic infarct, diverticulitis, mesenteric ischemia, metabolic, peritonitis, among others. [place] Drug Monitoring Program Search Results: patient reviewed within database, see additional documentation Impression Primary Impression: Chronic abdominal pain Additional Impressions: Diarrhea Hypomagnesemia Departure Information Dispostion Home / Self-Care Condition GOOD Referrals No Doctor, Assigned (PCP) Patient Instructions My [facility] Additional Instructions Contact your family doctor for further evaluation and management Continue your home medications Return with worsening symptoms Problem Qualifiers Additional Impressions:
[2016-05-17 13:22] LABS: BASO % 0.1 %; BASO ABS # 0.01 K/uL (0-0.2); COMPLETE YES; EOS % 0.7 %; HEMATOCRIT 37.7 % (37-47); IG% 0.2 %; LYMPH % 21.2 %; LYMPH ABS # 2.18 K/uL (1.2-3.4); MEAN CELL VOLUME 86.9 fL (80-100); MEAN CORPUSCULAR HEMOGLOBIN 30.6 pg (25-34); MEAN CORPUSCULAR HGB CONC 35.3 g/dl (32-36); MONO % 6.2 %; NEUT % 71.6 %; PLATELET COUNT 110 K/uL (130-400); RED BLOOD COUNT 4.34 M/uL (4.2-5.4); WHITE BLOOD COUNT 10.29 K/uL (4.8-10.8)
[2016-05-17] MEDS ORDERED: FRS/40 PO (13:41)
[2016-05-17] MEDS ORDERED: LINE600T5 PO (13:51)
[2016-05-17 13:52] LABS: ALB/GLOB RATIO 0.9 (0.9-2); ALKALINE PHOSPHATASE 114 U/L (45-117); ALT/SGPT 22 U/L (12-78); BLOOD UREA NITROGEN 14 mg/dl (7-18); BUN/CREATININE RATIO 16.6 (10-20); CALCIUM 9.4 mg/dl (8.5-10.1); CARBON DIOXIDE 25 mmol/L (21-32); CHLORIDE 103 mmol/L (98-107); CREATININE 0.85 mg/dl (0.60-1.20); GLUCOSE 150 mg/dl (70-99); SODIUM 139 mmol/L (136-145)
[2016-05-17 14:35] LABS: POTASSIUM 3.4 mmol/L (3.5-5.1)
[2016-05-17 14:40] LABS: MAGNESIUM 1.4 mg/dl (1.8-2.4)
--- NOTE | 2016-05-17 14:48 | EMERGENCY ROOM VISIT NOTE ---
ED Visit Note First contact with patient: 12:13 This Patient was discussed with the physician licensed loan officer assistant, TILA Smith. The pertinent historical and physical exam findings were confirmed. I agree with the studies ordered and with the interpretations of these studies. I agree with the disposition and care plan.
[2016-05-17] MEDS ORDERED: MAGNESIUM SULFATE 1GM / D5W 1 GM BAG IV STA (14:49)
[2016-05-17] MEDS ORDERED: CLONIDINE HCL 0.1 MG TAB PO ONE (15:15)
[2016-05-17] MEDS ORDERED: HYDROmorphone INJ 0.5 MG/0.5 ML SYR IV STA (16:30)
[2016-05-17 17:17] VITALS: BP 154/94; PULSE 84; O2SAT 97
[2016-05-18] MEDS ORDERED: CITA40TA4 PO (00:53)
[2016-05-18] MEDS ORDERED: IPRASOL4 NEB (02:54)
[2016-05-18] MEDS ORDERED: GABA1CAP4 PO (10:16)
[2016-05-18] MEDS ORDERED: SITA50TA5 PO (10:16)
[2016-05-18] MEDS ORDERED: POLY335019 PO (10:21)
[2016-05-18] MEDS ORDERED: DOCU100C31 PO (11:54)
[2016-05-18] MEDS ORDERED: AMLO-110 PO (11:54)
[2016-05-18] MEDS ORDERED: POTA1TAB PO (13:41)
[2016-05-18] MEDS ORDERED: MELA1TAB54 PO (13:51)
[2016-05-18] MEDS ORDERED: MAGN400T6 PO (13:51)
[2016-05-18] MEDS ORDERED: ZOLP5TAB PO (14:59)
[2016-05-18] MEDS ORDERED: IPRA1AER2 INH (16:29)
[2016-05-18] MEDS ORDERED: ASPI-435 PO (18:16)
[2016-05-18] MEDS ORDERED: ATV5X PO (20:36)
[2016-05-18] MEDS ORDERED: METO100T14 PO (20:36)
[2016-05-18] MEDS ORDERED: HYDR2TAB2 PO (20:37)
[2016-05-18] MEDS ORDERED: LSX40 PO (20:37)
[2016-05-18] MEDS ORDERED: DICL1GEL34 TOP (20:39)
[2016-05-18] MEDS ORDERED: ROSU20TA22 PO (20:40)
[2016-05-18] MEDS ORDERED: PANT40TA2 PO (20:40)
[2016-05-18] MEDS ORDERED: LINE1TAB2 PO (20:41)
[2016-05-18] MEDS ORDERED: PLV75 PO (20:41)
[2016-05-18] MEDS ORDERED: LSN40 PO (20:42)
[2016-05-18] MEDS ORDERED: FERR325T5 PO (20:46)
[2016-05-18] MEDS ORDERED: ASPI81TA28 PO (21:07)
[2016-05-18] MEDS ORDERED: CTP1CL PO (21:08)
[2016-05-20] MEDS ORDERED: FAMO20TA12 PO (10:05)
[2016-05-20] MEDS ORDERED: MAGN400T6 PO (10:05)
[2016-07-18] MEDS ORDERED: MAGN400T6 PO (14:23)
== END 2016-05-17 17:45 | disposition home or self-care (01) ==
LOC: C.EDB 11:47 → C.EDA 17:45
DX: R19.7 Diarrhea, unspecified (principal); R10.9 Unspecified abdominal pain; G89.29 Other chronic pain; E83.42 Hypomagnesemia; M25.512 Pain in left shoulder; Z98.890 Other specified postprocedural states; J45.909 Unspecified asthma, uncomplicated; I50.9 Heart failure, unspecified; E11.9 Type 2 diabetes mellitus without complications; M10.9 Gout, unspecified; I10 Essential (primary) hypertension; F11.21 Opioid dependence, in remission; E78.00 Pure hypercholesterolemia, unspecified; M06.9 Rheumatoid arthritis, unspecified; G47.30 Sleep apnea, unspecified; Z90.49 Acquired absence of other specified parts of digestive tract; Z90.710 Acquired absence of both cervix and uterus; Z83.3 Family history of diabetes mellitus; Z82.49 Family history of ischemic heart disease and other diseases of the circulatory system; Z82.0 Family history of epilepsy and other diseases of the nervous system; Z82.3 Family history of stroke; Z79.82 Long term (current) use of aspirin; Z79.899 Other long term (current) drug therapy

== ENCOUNTER 2016-05-22 19:09 | Emergency (ER) | payer OTHER ==
[~2016-05-22] VITALS: Ht 167.6 cm; Wt 92.5 kg
[~2016-05-22 19:09] MED LIST changes: +AMLO-110 PO; +ASPI81TA28 PO; +ATV5X PO; -CEFD300C3 PO; -CLOP1TAB15 PO; -CTP/1 PO; +CTP1CL PO; -DICL1GEL12 EXT; +DICL1GEL34 TOP; +DOCU100C31 PO; +FAMO20TA12 PO; -FERR1TAB13 PO; +FERR325T5 PO; -FURO-85 PO; +GABA1CAP4 PO; +HYDR2TAB2 PO; +IPRA1AER2 INH; +IPRASOL4 NEB; +LINE1TAB2 PO; -LISI40TA PO; -LORA-741 PO; +LSN40 PO; +LSX40 PO; +MAGN400T6 PO; -MELA1CAP5 PO; +MELA1TAB54 PO; +METO100T14 PO; -NF656; -PANT40TA PO; +PLV75 PO; +POLY335019 PO; +POTA1TAB PO; -POTA550T4 PO; -ROSU20TA PO; +ROSU20TA22 PO; +SITA50TA5 PO; -TPRSR/100 PO; +ZOLP5TAB PO
[2016-05-22 19:14] VITALS: TEMP 36.8; Ht 167.6 cm; Wt 92.5 kg
[2016-05-22] MEDS ORDERED: SODIUM CHLORIDE 0.9% 1000ML 1,000 ML IV STA (19:45)
[2016-05-22] MEDS ORDERED: MAGNESIUM SULFATE 1GM / D5W 1 GM BAG IV STA (19:45)
[2016-05-22] MEDS ORDERED: HYDROmorphone INJ 1 MG/ML SYR IV STA ×2 (19:45→22:15)
[2016-05-22] MEDS ORDERED: METOCLOPRAMIDE HCL INJ 5 MG/ML 2 ML VIAL IV STA ×2 (19:45→22:15)
--- NOTE | 2016-05-22 19:50 | EMERGENCY ROOM VISIT NOTE ---
History Report prepared by [place]: Lisa Hadley Under the Supervision of: Dr. Keon Cordon M.D. First contact with patient: 19:30 Chief Complaint: HYPERTENSION Stated Complaint: HIGH BP,DIARRHEA,CAN'T KEEP ANYTHING DOWN History of Present Illness The patient is a 71 year old female who presents to the Emergency Room with complaints of persistent diarrhea that began three weeks ago. She currently rates her discomfort as a 10/10 in severity. The patient states that Friday she was evaluated in the emergency department for her symptoms. She states that she was found to be dehydrated, so was unable to give a stool or urine sample until Friday. The patient states that she was discharged from the hospital Friday and saw her PCP yesterday. She states that her blood work was repeated and was called and informed that she was anemic and hypomagnesemic. The patient states that her magnesium dosage was increased. She states that she is still having diarrhea, and has had abdominal pain and vomiting. The patient notes a decrease in appetite. She denies any tobacco or alcohol use. The patient states that she uses nebulizers and inhalers at home. The patient notes a surgical history of a cholecystectomy, appendectomy, hysterectomy, and tubal ligation. Source of History: patient Onset: three weeks ago Position: other (global) Symptom Intensity: 10/10 Quality: other (diarrhea) Timing: other (persistent) Associated Symptoms: + abdominal pain, + vomiting Note: Associated Symptoms: decrease in appetite Review of Systems See HPI for pertinent positives & negatives. A total of 10 systems reviewed and were otherwise negative. 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 (13) loose glenoid (14) Opioid Dependence-Unspec (15) Other Chronic Pain (16) Pure Hypercholesterolem (17) Recurrent falls (18) Rheumatoid arthritis (19) Sinus tachycardia (20) Sleep apnea Surgical Problems: (1) Cholecystectomy (2) Hysterectomy Family History Diabetes mellitus FH: heart disease Hypertension Kidney disease Kidney stones Seizures Stroke Social History Smoking Status: Never Smoker Alcohol Use: none Drug Use: none Marital Status: Housing Status: lives alone Occupation Status: retired Current/Historical Medications Scheduled Amlodipine (Norvasc), 5 MG PO QAM Aspirin (Aspirin Ec), 81 MG PEG DAILY Clonidine Hcl (Catapres), 0.1 MG PO BID Clopidogrel Bisulfate (Clopidogrel), 75 MG PO DAILY Famotidine (Famotidine), 20 MG PO BID Ferrous Sulfate (Ferrous Sulfate), 325 MG PO BID Furosemide (Furosemide), 40 MG PO DAILY Gabapentin (Gabapentin), 600 MG PO TID Hydromorphone Hcl (Hydromorphone Hcl), 4 MG PO BID Ipratropium-Albuterol (Combivent Respimat), 2 PUFFS INH QID Linezolid (Linezolid), 600 MG PO Q12 Lisinopril (Lisinopril), 40 MG PO QAM Lorazepam (Lorazepam), 0.5 MG PO TID Magnesium Oxide (Mag-Ox), 400 MG PO BID Melatonin (Melatonin), 10 MG PO HS Metoprolol Tartrate (Lopressor) (Lopressor), 100 MG PO HS Ondasetron Odt (Zofran Odt), 4 MG SL Q6H Potassium Gluconate (Potassium Gluconate), 297.5 MG PO DAILY Rosuvastatin Calcium (Rosuvastatin Calcium), 20 MG PO HS Sitagliptin-Metformin Hcl (Janumet), 1 TAB PO BID Scheduled PRN Diclofenac Sodium (Topical) (Diclofenac Sodium), 1 APPLN TOP QID PRN for Pain Docusate Sodium (Docusate Sodium), 100 MG PO DAILY PRN for Constipation Ipratropium-Albuterol (Duoneb), 1 TREATMENT NEB Q6H PRN for SOB/Wheezing Polyethylene Glycol 3350 (Miralax), 17 GM PO HS PRN for Constipation Zolpidem Tartrate (Ambien), 5 MG PO HS PRN for Insomnia Allergies Coded Allergies: Cephalosporins (Verified Allergy, Unknown, RINGING OF EARS,FALLING BALANCE ISSUES, 04/02/16) Prochlorperazine (Verified Allergy, Unknown, STROKE LIKE SYMPTOMS, CAN'T TALK, 04/02/16) Morphine (Verified Adverse Reaction, Unknown, NOT EFFECTIVE, 04/02/16) Tramadol (Verified Adverse Reaction, Unknown, UNSTEADY ON FEET, HYPERACTIVITYY, 04/02/16) Physical Exam Vital Signs Date Time Temp Pulse Resp B/P Pulse Ox O2 Delivery O2 Flow Rate FiO2 05/22/16 23:06 88 171/90 96 05/22/16 20:21 77 05/22/16 19:14 36.8 89 20 200/98 100 Room Air Physical Exam GENERAL: Patient is a healthy-appearing well-nourished HEAD: Normocephalic atraumatic EYES: Ocular movements intact pupils equal and react to light OROPHARYNX mucous membranes are moist no exudates present no erythema or edema present NECK: Supple no nuchal rigidity CHEST: Good equal expansion LUNGS: Clear and equal to auscultation CARDIAC: Normal S1 and S2 ABDOMEN: Soft nontender no guarding BACK: No CVA tenderness EXTREMITIES: No pain upon palpation normal muscle strength in all groups no clubbing cyanosis or edema NEURO: Patient is following commands is answering questions appropriately. Alert and oriented x3 Cranial Nerves 2-12 grossly intact Medical Decision & Procedures ER Provider Diagnostic Interpretation: X-ray results as stated below per interpretation by me and the radiologist: ABDOMEN 2VIEW W/PA CHEST RTN CLINICAL HISTORY: Pt c/o diffuse abd pain nausea COMPARISON STUDY: 03/18/2016 FINDINGS: Mild stable cardiomegaly. Lungs are clear. Bowel pattern is nonobstructive. Patient status post right hip arthroplasty. There is a vena caval filter present. There is perhaps a minimal nonobstructive ileus. IMPRESSION: 1. No acute process the chest. 2. Minimal nonobstructive ileus. Electronically signed by: Carl Dent M.D. 05/22/2016 10:11 PM Dictated Date/Time: 05/22/2016 10:10 PM Laboratory Results 05/22/16 21:25 Test 05/22/16 21:25 05/22/16 21:37 Est Creatinine Clear Calc Drug Dose 83.2 ml/min Estimated GFR () 100.3 Estimated GFR (Non- 86.6 BUN/Creatinine Ratio 8.4 (10-20) Calcium Level 8.6 mg/dl (8.5-10.1) Magnesium Level 1.2 mg/dl (1.8-2.4) Total Bilirubin 0.3 mg/dl (0.2-1) Direct Bilirubin 0.1 mg/dl (0-0.2) Aspartate Amino Transf (AST/SGOT) 19 U/L (15-37) Alanine Aminotransferase (ALT/SGPT) 21 U/L (12-78) Alkaline Phosphatase 109 U/L (45-117) Total Protein 7.0 gm/dl (6.4-8.2) Albumin 3.5 gm/dl (3.4-5.0) Lipase 149 U/L (73-393) Bedside Hemoglobin 11.6 g/dl (12.0-16.0) Bedside Hematocrit 34 % (37-47) Bedside Sodium 144 mEq/L (135-144) Bedside Potassium 4.3 mEq/L (3.3-5.0) Bedside Chloride 106 mEq/L (101-112) Bedside Total CO2 23 mEq/l (24-31) Anion Gap 20.0 mmol/L (16-25) Bedside Blood Urea Nitrogen 4 mg/dl (7-18) Bedside Creatinine 0.6 mg/dl (0.6-1.3) Bedside Glucose (other) 130 mg/dl (70-99) Bedside Ionized Calcium (Yee) 1.08 mmol/l (1.12-1.32) Labs reviewed by ED physician. Medications Administered Medications (Trade) Dose Ordered Sig/Krystal Route Start Time Stop Time Status Last Admin Dose Admin Sodium Chloride (Nss 1000ml) 1,000 ml @ 999 mls/hr Q1H1M STAT IV 05/22/16 19:45 05/22/16 20:45 DC 05/22/16 19:45 999 MLS/HR Ondansetron HCl (Zofran Odt) 4 mg ONE STAT PO 05/22/16 20:53 05/22/16 20:54 DC 05/22/16 21:02 4 MG Oxycodone/ Acetaminophen (Percocet 5-325mg Tab) 2 tab Q4H STAT PO 05/22/16 20:53 05/22/16 20:54 DC 05/22/16 21:02 2 TAB Magnesium Oxide (Mag-Ox Tab) 400 mg NOW STAT PO 05/22/16 21:05 05/22/16 21:06 DC 05/22/16 22:14 400 MG Hydromorphone HCl (Dilaudid Inj) 1 mg NOW STAT IV 05/22/16 22:15 05/22/16 22:17 DC 05/22/16 22:31 1 MG Metoclopramide HCl (Reglan Inj) 10 mg NOW STAT IV 05/22/16 22:15 05/22/16 22:17 DC 05/22/16 22:32 10 MG Ondansetron HCl (ZOFRAN ODT 4MG Home Pack) 1 homepack UD ONCE PO 05/22/16 23:00 05/22/16 23:01 DC 05/22/16 23:06 1 HOMEPACK ED Course 1936: Past medical records reviewed. The patient was evaluated in room C10. A complete history and physical examination was performed. 1944: Ordered Sodium Chloride 1000 ml @ 999 mls/hr IV, Reglan Inj 10 mg IV, Dilaudid Inj 1 mg IV, Magnesium Sulfate 2 gm IV. 2052: Ordered Oxycodone/Acetaminophen 2 tab PO, Zofran Odt 4 mg PO. 2055: Ordered Dilaudid Tab 4 mg PO. 2104: Ordered Magnesium Oxide 400 mg PO. 2214: Ordered Reglan Inj 10 mg IV, Dilaudid Inj 1 mg IV. 2245: I reevaluated the patient and she is feeling much better. I discussed the exam findings with her and I discussed the treatment plan. She verbalized complete understanding and agreement. She is ready to go home. 2299: Ordered Zofran Odt 4 mg homepack PO. Medical Decision Differential diagnosis: Etiologies such as appendicitis, diverticulitis, PUD, biliary pathology, UTI, pancreatitis, obstruction, mesenteric ischemia, aortic pathology, infections, inflammatory bowel disease, renal colic, as well as others were entertained. This is a 71-year-old female who presents emergency department complaining of intractable vomiting. I will note that the patient is well in appearance. She reports that she was sent into the emergency department for anemia as well as low magnesium levels. The patient was held for an extended period time due to the fact that we're unable to obtain an IV as well as laboratory work area during this time I'll note that the patient was able tolerate oral fluids as well as pain medication via mouth. After sometime an IV was able to be established. At this point the patient was given IV normal saline bolus. Her hemoglobin level is stable compared to previous hemoglobins. Her magnesium is slightly low however her magnesium was recently bumped up as an outpatient. The patient was able to tolerate by mouth magnesium here in the emergency department. I do believe the patient as well as to be discharged home. Serial abdominal examinations were performed on the patient in the emergency department and at no time did the patient exhibit a surgical abdomen. As the patient does show a slight ileus on x-ray I recommended a clear liquid diet for the next 48 hours. She was given Zofran for nausea at home. Patient was in agreement with the treatment plan.- [place] Drug Monitoring Program Search Results: patient reviewed within database, see additional documentation Drug Monitoring Findings: Had a prescription for 4 mg Dilaudid tablets on 05/07 for a 28 day supply. Impression Primary Impression: Hypertension Additional Impression: Vomiting Scribe Attestation The scribe's documentation has been prepared under my direction and personally reviewed by me in its entirety. I confirm that the note above accurately reflects all work, treatment, procedures, and medical decision making performed by me. Departure Information Dispostion Home / Self-Care Prescriptions Ondasetron Odt (ZOFRAN ODT) 4 Mg Tab 4 MG SL Q6H for Nausea, #6 TAB Prov: Keon Cordon MD 05/22/16 Referrals No Doctor, Assigned (PCP) Aide Delarosa M.D. Forms HOME CARE DOCUMENTATION FORM, IMPORTANT VISIT INFORMATION, WORK / SCHOOL INSTRUCTIONS Patient Instructions ED Diet Clear Liquid, Hypertension Control, My [facility] Additional Instructions Recommend clear liquid diet next 48 hours You received narcotic or benzodiazepene medication while in the emergency room today. Do not drive, operate heavy machinery, or drink alcohol under the influence of this medication. You have been examined and treated today on an emergency basis only. This is not a substitute for, or an effort to provide, complete comprehensive medical care. It is impossible to recognize and treat all injuries or illnesses in a single emergency department visit. It is therefore important that you follow up closely with Dr Delarosa. Call as soon as possible for an appointment. Thank you for your time and consideration. I look forward to speaking with you again soon. Please don't hesitate to call us if you have any questions. Problem Qualifiers Primary Impression: Hypertension Hypertension type: unspecified secondary hypertension Qualified Codes: I15.9 - Secondary hypertension, unspecified Additional Impression: Vomiting Vomiting type: unspecified Vomiting Intractability: unspecified Nausea presence: unspecified Qualified Codes: R11.10 - Vomiting, unspecified
[2016-05-22] MEDS ORDERED: OXYCODONE/ACETAMINOPHEN 5-325 TAB PO STA (20:53)
[2016-05-22] MEDS ORDERED: ONDANSETRON 4MG OD TAB PO STA (20:53)
[2016-05-22] MEDS ORDERED: HYDROmorphone HCL 2 MG TAB PO STA (20:56)
[2016-05-22] MEDS ORDERED: MAGNESIUM OXIDE 400 MG TAB PO STA (21:05)
[2016-05-22 21:50] LABS: ISTAT CREATININE 0.6 mg/dl (0.6-1.3); ISTAT HEMOGLOBIN 11.6 g/dl (12.0-16.0); ISTAT IONIZED CALCIUM 1.08 mmol/l (1.12-1.32)
[2016-05-22 22:10] LABS: BUN/CREATININE RATIO 8.4 (10-20); CREATININE 0.7 mg/dl (0.60-1.20); MAGNESIUM 1.2 mg/dl (1.8-2.4); POTASSIUM 3.7 mmol/L (3.5-5.1)
--- NOTE | 2016-05-22 22:13 | DIAGNOSTIC IMAGING REPORT ---
ABDOMEN 2VIEW W/PA CHEST RTN CLINICAL HISTORY: Pt c/o diffuse abd pain nausea COMPARISON STUDY: 03/18/2016 FINDINGS: Mild stable cardiomegaly. Lungs are clear. Bowel pattern is nonobstructive. Patient status post right hip arthroplasty. There is a vena caval filter present. There is perhaps a minimal nonobstructive ileus. IMPRESSION: 1. No acute process the chest. 2. Minimal nonobstructive ileus. Electronically signed by: Carl Dent M.D. 05/22/2016 10:11 PM Dictated Date/Time: 05/22/2016 10:10 PM
[2016-05-22] MEDS ORDERED: ONDA4TAB10 SL (22:49)
[2016-05-22] MEDS ORDERED: ONDANSETRON HOME PACK 4MG OD TAB PO ONE (23:00)
[2016-05-22 23:06] VITALS: BP 171/90; PULSE 88; O2SAT 96
[2016-05-22 23:22] LABS: CALCIUM 8.6 mg/dl (8.5-10.1)
[2016-07-18] MEDS ORDERED: MAGN400T6 PO (14:23)
== END 2016-05-22 23:09 | disposition home or self-care (01) ==
LOC: C.EDB 19:12 → C.EDC 23:09
DX: I15.9 Secondary hypertension, unspecified (principal); R11.10 Vomiting, unspecified; J45.909 Unspecified asthma, uncomplicated; I50.9 Heart failure, unspecified; M54.9 Dorsalgia, unspecified; G89.29 Other chronic pain; E11.40 Type 2 diabetes mellitus with diabetic neuropathy, unspecified; M10.9 Gout, unspecified; F11.20 Opioid dependence, uncomplicated; E78.00 Pure hypercholesterolemia, unspecified; M06.9 Rheumatoid arthritis, unspecified; G47.30 Sleep apnea, unspecified; Z83.3 Family history of diabetes mellitus; Z82.49 Family history of ischemic heart disease and other diseases of the circulatory system; Z84.1 Family history of disorders of kidney and ureter; Z79.82 Long term (current) use of aspirin; Z79.899 Other long term (current) drug therapy

== ENCOUNTER 2016-05-31 11:57 | Emergency (ER) | payer OTHER ==
[~2016-05-31] VITALS: Ht 167.6 cm; Wt 93.9 kg
[~2016-05-31 11:57] MED LIST changes: +ONDA4TAB10 SL
[2016-05-31 12:09] VITALS: TEMP 36.8; Ht 167.6 cm; Wt 93.9 kg
[2016-05-31] MEDS ORDERED: PANT40TA PO (12:30)
[2016-05-31] MEDS ORDERED: SENN-61 PO (12:30)
[2016-05-31] MEDS ORDERED: BISA-49 PO (12:30)
[2016-05-31] MEDS ORDERED: DULO60CA44 PO (12:30)
[2016-05-31] MEDS ORDERED: LEVO-17 PO (12:31)
[2016-05-31] MEDS ORDERED: SODIUM CHLORIDE 0.9% 1000ML 1,000 ML IV STA ×2 (13:08→15:35)
--- NOTE | 2016-05-31 13:08 | EMERGENCY ROOM VISIT NOTE ---
History Report prepared by [place]: Frankie Cochran Under the Supervision of: Dr. Angely Galloway D.O. First contact with patient: 12:49 Chief Complaint: ABDOMINAL PAIN Stated Complaint: AB PAIN, DIARRHEA Nursing Triage Summary: Patient arrived via BLS c/o diarrhea x2 weeks. Patient c/o abdominal pain, 10/ 10 left shoulder pain, and had dizzy/lightheaded spell this morning and had to sit down. Patient denies N/V or loss of appetite. Patient was here for similar complaint 05/17. Hx of left shoulder surgery. Patient is currently on antibiotics. History of Present Illness The patient is a 71 year old female who presents to the Emergency Room via BLS with complaints of persistent diarrhea over the past two weeks. 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 The patient had been evaluated in this ED twice last week for similar symptoms. She has an extensive medical history that includes 4 left shoulder surgeries, anemia, hypomagnesia, stomach ulcers, DVT, and chronic pain syndrome. She denies fevers, nausea, hematochezia , chest pain, shortness of breath, and additional associated symptoms. The patient is currently in between pain management clinics. She notes that she is often prescribed Dilaudid 4 mg for her chronic pain, but does not currently have a prescription. Patient is currently taking Plavix, Aspirin, and antibiotics as prescribed. Pt well known to the ER. Here frequently with similar complaints. Chronic abd pain on chronic pain meds. Hx of diarrhea for many weeks while on antibiotics. On last admission 10 days ago had cultures for c.diff/stool culture both reported as negative. Source of History: patient Onset: Two weeks Position: other (GI system ) Timing: other (Persistent ) Modifying Factors (Relieving): other (None) Associated Symptoms: + abdominal pain, + weakness, No SOB, No chest pain, No fevers, No nausea, No vomiting Review of Systems See above for pertinent positives & negatives. A total of 10 systems reviewed and were otherwise negative. 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 (13) loose glenoid (14) Opioid Dependence-Unspec (15) Other Chronic Pain (16) Pure Hypercholesterolem (17) Recurrent falls (18) Rheumatoid arthritis (19) Sinus tachycardia (20) Sleep apnea Surgical Problems: (1) Cholecystectomy (2) Hysterectomy Family History Diabetes mellitus FH: heart disease Hypertension Kidney disease Kidney stones Seizures Stroke Social History Smoking Status: Never Smoker Alcohol Use: none Drug Use: none Marital Status: Housing Status: lives alone Occupation Status: retired Current/Historical Medications Scheduled Amlodipine (Norvasc), 5 MG PO QAM Aspirin (Aspirin Ec), 81 MG PO DAILY Bisacodyl (Cvs Bisacodyl), 5 MG PO DAILY Clonidine Hcl (Catapres), 0.1 MG PO BID Clopidogrel Bisulfate (Clopidogrel), 75 MG PO DAILY Duloxetine Hcl (Cymbalta), 60 MG PO DAILY Ferrous Sulfate (Ferrous Sulfate), 325 MG PO BID Furosemide (Furosemide), 40 MG PO DAILY Gabapentin (Gabapentin), 600 MG PO TID Hydromorphone Hcl (Hydromorphone Hcl), 4 MG PO BID Ipratropium-Albuterol (Combivent Respimat), 2 PUFFS INH QID Levofloxacin (Levaquin), Unknown Dose PO BID Linezolid (Linezolid), 600 MG PO Q12 Lisinopril (Lisinopril), 40 MG PO QAM Lorazepam (Lorazepam), 0.5 MG PO TID Magnesium Oxide (Mag-Ox), 400 MG PO BID Melatonin (Melatonin), 10 MG PO HS Metoprolol Tartrate (Lopressor) (Lopressor), 100 MG PO HS Pantoprazole (Protonix), 40 MG PO DAILY Potassium Gluconate (Potassium Gluconate), 297.5 MG PO DAILY Rosuvastatin Calcium (Rosuvastatin Calcium), 20 MG PO HS Senna (Senokot), 8.6 MG PO DAILY Sitagliptin-Metformin Hcl (Janumet), 1 TAB PO BID Scheduled PRN Diclofenac Sodium (Topical) (Diclofenac Sodium), 1 APPLN TOP QID PRN for Pain Dicyclomine Hcl (Bentyl), 20 MG PO Q8 PRN for abdominal cramps Docusate Sodium (Docusate Sodium), 100 MG PO DAILY PRN for Constipation Ipratropium-Albuterol (Duoneb), 1 TREATMENT NEB Q6H PRN for SOB/Wheezing Polyethylene Glycol 3350 (Miralax), 17 GM PO HS PRN for Constipation Allergies Coded Allergies: Cephalosporins (Verified Allergy, Unknown, RINGING OF EARS,FALLING BALANCE ISSUES, 05/31/16) Prochlorperazine (Verified Allergy, Unknown, STROKE LIKE SYMPTOMS, CAN'T TALK, 05/31/16) Morphine (Verified Adverse Reaction, Unknown, NOT EFFECTIVE, 05/31/16) Tramadol (Verified Adverse Reaction, Unknown, UNSTEADY ON FEET, HYPERACTIVITYY, 05/31/16) Physical Exam Vital Signs Date Time Temp Pulse Resp B/P Pulse Ox O2 Delivery O2 Flow Rate FiO2 05/31/16 20:27 93 18 175/81 94 05/31/16 19:20 91 18 182/93 94 Room Air 05/31/16 17:17 95 18 185/73 92 Room Air 05/31/16 15:22 90 20 174/75 96 Room Air 05/31/16 13:37 76 18 165/106 95 Room Air 05/31/16 12:09 36.8 77 20 164/62 96 Room Air Physical Exam GENERAL: alert, well appearing, well nourished, no distress, non-toxic EYE EXAM: normal conjunctiva, PERRL and EOM's grossly intact OROPHARYNX: no exudate, no erythema, lips, buccal mucosa, and tongue normal and mucous membranes are moist NECK: supple, no nuchal rigidity, no adenopathy, non-tender LUNGS: Clear to auscultation. Normal chest wall mechanics HEART: no murmurs, S1 normal and S2 normal ABDOMEN: abdomen soft, non-tender, normo-active bowel sounds, no masses, no rebound or guarding. BACK: Back is symmetrical on inspection and there is no deformity, no midline tenderness, no CVA tenderness. SKIN: no rashes and no bruising UPPER EXTREMITIES: Left upper extremity in sling. Left anterior proximal shoulder scar noted. LOWER EXTREMITIES: Mild bilateral pedal edema, right greater than left. NEURO EXAM: Normal sensorium, cranial nerves II-XII grossly intact, normal speech, no gross weakness of arms, no gross weakness of legs. No drift. Finger to nose intact. Gross sensation intact. Medical Decision & Procedures ER Provider Diagnostic Interpretation: CT results have been interpreted by the radiologist and reviewed by me. ABDOMEN AND PELVIS CT WITHOUT CONTRAST CT DOSE: 1282.02 mGy.cm HISTORY: Pain abd pain TECHNIQUE: Multiaxial CT images of the abdomen and pelvis were performed without contrast. COMPARISON STUDY: None. FINDINGS: Lung bases are clear. Subtle nodular character character to the outer cortical margin liver unchanged. Possible early hepatic cirrhosis. Inferior vena caval filter in position. This is unchanged. Kidneys negative for calcification or hydronephrosis. Bowel pattern is considered nonobstructive. This is within limitations of lack of contrast enhancement. Patient is status post total right hip arthroplasty. Sclerotic change of the L1 superior vertebral body unaltered from the prior exam and considered chronic. IMPRESSION: Chronic change. No acute process of the abdomen or pelvis. Electronically signed by: Carl Dent M.D. 05/31/2016 7:36 PM Dictated Date/Time: 05/31/2016 7:30 PM Laboratory Results 05/31/16 13:23 Red Blood Count 3.72, Mean Corpuscular Volume 88.2, Mean Corpuscular Hemoglobin 30.1, Mean Corpuscular Hemoglobin Concent 34.1, Mean Platelet Volume 10.7, Neutrophils (%) (Auto) 74.0, Lymphocytes (%) (Auto) 17.8, Monocytes (%) (Auto) 7.0, Eosinophils (%) (Auto) 0.8, Basophils (%) (Auto) 0.2, Neutrophils # (Auto) 6.97, Lymphocytes # (Auto) 1.68, Monocytes # (Auto) 0.66, Eosinophils # (Auto) 0.08, Basophils # (Auto) 0.02 05/31/16 13:23 Test 05/31/16 13:23 05/31/16 17:25 White Blood Count 9.43 K/uL (4.8-10.8) Red Blood Count 3.72 M/uL (4.2-5.4) Hemoglobin 11.2 g/dL (12.0-16.0) Hematocrit 32.8 % (37-47) Mean Corpuscular Volume 88.2 fL (80-100) Mean Corpuscular Hemoglobin 30.1 pg (25-34) Mean Corpuscular Hemoglobin Concent 34.1 g/dl (32-36) Platelet Count 134 K/uL (130-400) Mean Platelet Volume 10.7 fL (7.4-10.4) Neutrophils (%) (Auto) 74.0 % Lymphocytes (%) (Auto) 17.8 % Monocytes (%) (Auto) 7.0 % Eosinophils (%) (Auto) 0.8 % Basophils (%) (Auto) 0.2 % Neutrophils # (Auto) 6.97 K/uL (1.4-6.5) Lymphocytes # (Auto) 1.68 K/uL (1.2-3.4) Monocytes # (Auto) 0.66 K/uL (0.11-0.59) Eosinophils # (Auto) 0.08 K/uL (0-0.5) Basophils # (Auto) 0.02 K/uL (0-0.2) RDW Standard Deviation 46.6 fL (36.4-46.3) RDW Coefficient of Variation 14.5 % (11.5-14.5) Immature Granulocyte % (Auto) 0.2 % Immature Granulocyte # (Auto) 0.02 K/uL (0.00-0.02) Anion Gap 10.0 mmol/L (3-11) Est Creatinine Clear Calc Drug Dose 69.1 ml/min Estimated GFR () 79.3 Estimated GFR (Non- 68.5 BUN/Creatinine Ratio 20.0 (10-20) Calcium Level 9.0 mg/dl (8.5-10.1) Magnesium Level 1.9 mg/dl (1.8-2.4) Total Bilirubin 0.9 mg/dl (0.2-1) Aspartate Amino Transf (AST/SGOT) 25 U/L (15-37) Alanine Aminotransferase (ALT/SGPT) 22 U/L (12-78) Alkaline Phosphatase 119 U/L (45-117) Total Protein 7.8 gm/dl (6.4-8.2) Albumin 3.9 gm/dl (3.4-5.0) Globulin 3.9 gm/dl (2.5-4.0) Albumin/Globulin Ratio 1.0 (0.9-2) Lactic Acid Level 2.4 mmol/L (0.4-2.0) Laboratory results per my review. Medications Administered Medications (Trade) Dose Ordered Sig/Krystal Route Start Time Stop Time Status Last Admin Dose Admin Sodium Chloride (Nss 1000ml) 1,000 ml @ 999 mls/hr Q1H1M STAT IV 05/31/16 13:08 05/31/16 14:08 DC 05/31/16 13:35 999 MLS/HR Hydromorphone HCl (Dilaudid Inj) 1 mg NOW STAT IV 05/31/16 13:51 05/31/16 13:53 DC 05/31/16 14:09 1 MG Dicyclomine HCl 20 mg 20 mg ONE STAT PO 05/31/16 13:51 05/31/16 13:53 DC 05/31/16 14:10 20 MG Sodium Chloride (Nss 1000ml) 1,000 ml @ 999 mls/hr Q1H1M STAT IV 05/31/16 15:35 05/31/16 16:35 DC 05/31/16 15:35 999 MLS/HR Nystatin (Mycostatin Powder) 1 appln ONE STAT EXT 05/31/16 16:49 05/31/16 16:51 DC 05/31/16 18:14 1 APPLN Dicyclomine HCl (Bentyl Tab) 20 mg ONE STAT PO 05/31/16 19:59 05/31/16 20:56 DC 05/31/16 20:17 20 MG Hydromorphone HCl (Dilaudid Inj) 0.5 mg NOW STAT IV 05/31/16 19:59 05/31/16 20:56 DC 05/31/16 20:06 0.5 MG ED Course 1250: The patient was evaluated in room C6. A complete history and physical exam was performed. 1302: Upon further review of the patient's chart, it was found that the patient had C.Diff and stool cultures performed at the beginning of May which were negative. 1308: Ordered Sodium Chloride 1,000 ml @ 999 mls/hr IV. 1351: Ordered Bentyl Tablet 20 mg PO, Dilaudid Injection 1 mg IV. 1535: Ordered Sodium Chloride 1,000 ml @ 999 mls/hr IV, 1649: Ordered Nystatin 1 appin EXT 1832: Upon reevaluation, the patient is still complaining of pain. She did have one episode of diarrhea during ED visit thus far which was non bloody. 1855: I discussed the patient's case with case management. 1955: Upon reevaluation, the patient is feeling better. I discussed the findings and the treatment plan with the patient. She verbalizes agreement and understanding. She was discharged home. 1958: Ordered Dilaudid Injection 0.5 mg IV, Bentyl Tabley 20 mg PO. Medical Decision Differential considered: pancreatitis, hepatitis, or acute cholecystitis, AAA, UTI, pyelonephritis, kidney stones, appendicitis, diverticulitis, shingles, bowel obstruction mesenteric ischemia, intussusception,hernia, testicular torsion, ovarian torsion, ruptured ovarian cyst,ectopic , . Pt observed for several hours and rehydrated. Vs stable. Labs reassuring. One episode of nonbloody diarrhea during that time. No vomiting, no fevers. Imaging reassuring. Initial elevated lactic acid likely from dehydration as improved following IVF and abd soft/NT, no Ct evidence mesenteric ischemia/ colitis. Discussed with assistant case manager several times - no clear criteria for admission, unable to arrange f/u over the weekend. Stable H/H. Tolerating po. Ambulating with a steady gait. Discussed with pt f/u with GI given persistence of diarrhea. Discussed sx to watch/return for, she verbalized understanding and was agreeable with plan. I suspect some degree of secondary gain in pt being admitted as lives by herself and her son is currently out of town. Impression Primary Impression: Chronic abdominal pain Additional Impression: Diarrhea Scribe Attestation The scribe's documentation has been prepared under my direction and personally reviewed by me in its entirety. I confirm that the note above accurately reflects all work, treatment, procedures, and medical decision making performed by me. Departure Information Dispostion Home / Self-Care Prescriptions Dicyclomine Hcl (BENTYL) 20 Mg Tab 20 MG PO Q8 Y for abdominal cramps, #20 TAB Prov: Angely Galloway, 05/31/16 Referrals Aide Delarosa M.D. (PCP) Forms HOME CARE DOCUMENTATION FORM, IMPORTANT VISIT INFORMATION Patient Instructions My [facility] Additional Instructions Please continue your regular medications as prescribed. Please call your family doctor Friday and discuss with them your persistent symptoms and possible follow-up with a GI specialist due to the diarrhea. If you have fevers , vomiting, worsening pain, notice blood in your stool, have an increase in the number of episodes of diarrhea, develop dizziness, or you have any other concerns, please return to the emergency room. Problem Qualifiers Additional Impression: Diarrhea Diarrhea type: unspecified type Qualified Codes: R19.7 - Diarrhea, unspecified
[2016-05-31 13:39] LABS: BASO % 0.2 %; BASO ABS # 0.02 K/uL (0-0.2); COMPLETE YES; EOS % 0.8 %; HEMATOCRIT 32.8 % (37-47); IG% 0.2 %; LYMPH % 17.8 %; LYMPH ABS # 1.68 K/uL (1.2-3.4); MEAN CELL VOLUME 88.2 fL (80-100); MEAN CORPUSCULAR HEMOGLOBIN 30.1 pg (25-34); MEAN CORPUSCULAR HGB CONC 34.1 g/dl (32-36); MEAN PLATELET VOLUME 10.7 fL (7.4-10.4); PLATELET COUNT 134 K/uL (130-400); RED BLOOD COUNT 3.72 M/uL (4.2-5.4); WHITE BLOOD COUNT 9.43 K/uL (4.8-10.8)
[2016-05-31] MEDS ORDERED: DICYCLOMINE HCL 20 MG TAB PO STA ×2 (13:51→19:59)
[2016-05-31] MEDS ORDERED: HYDROmorphone INJ 0.5 MG/0.5 ML SYR IV STA ×2 (13:51→19:59)
[2016-05-31 13:59] LABS: CREATININE 0.85 mg/dl (0.60-1.20); MAGNESIUM 1.9 mg/dl (1.8-2.4)
[2016-05-31] MEDS ORDERED: NYSTATIN POWDER 15GM BTL EXT STA (16:49)
--- NOTE | 2016-05-31 19:38 | DIAGNOSTIC IMAGING REPORT ---
ABDOMEN AND PELVIS CT WITHOUT CONTRAST CT DOSE: 1282.02 mGy.cm HISTORY: Pain abd pain TECHNIQUE: Multiaxial CT images of the abdomen and pelvis were performed without contrast. COMPARISON STUDY: None. FINDINGS: Lung bases are clear. Subtle nodular character character to the outer cortical margin liver unchanged. Possible early hepatic cirrhosis. Inferior vena caval filter in position. This is unchanged. Kidneys negative for calcification or hydronephrosis. Bowel pattern is considered nonobstructive. This is within limitations of lack of contrast enhancement. Patient is status post total right hip arthroplasty. Sclerotic change of the L1 superior vertebral body unaltered from the prior exam and considered chronic. IMPRESSION: Chronic change. No acute process of the abdomen or pelvis. Electronically signed by: Carl Dent M.D. 05/31/2016 7:36 PM Dictated Date/Time: 05/31/2016 7:30 PM
[2016-05-31] MEDS ORDERED: DICY20TA35 PO (20:01)
[2016-05-31 20:27] VITALS: BP 175/81; PULSE 93; O2SAT 94
[2016-07-18] MEDS ORDERED: MAGN400T6 PO (14:23)
== END 2016-05-31 20:28 | disposition home or self-care (01) ==
LOC: EDBD 11:57 → C.EDC 11:59
DX: R19.7 Diarrhea, unspecified (principal); R10.9 Unspecified abdominal pain; Z86.718 Personal history of other venous thrombosis and embolism; G89.4 Chronic pain syndrome; Z79.01 Long term (current) use of anticoagulants; Z79.82 Long term (current) use of aspirin; Z79.899 Other long term (current) drug therapy; J45.909 Unspecified asthma, uncomplicated; M54.9 Dorsalgia, unspecified; M79.604 Pain in right leg; E11.9 Type 2 diabetes mellitus without complications; M10.9 Gout, unspecified; I10 Essential (primary) hypertension; E78.00 Pure hypercholesterolemia, unspecified; M06.9 Rheumatoid arthritis, unspecified; G47.30 Sleep apnea, unspecified; Z90.49 Acquired absence of other specified parts of digestive tract; Z90.710 Acquired absence of both cervix and uterus; Z83.3 Family history of diabetes mellitus; Z82.0 Family history of epilepsy and other diseases of the nervous system; Z82.49 Family history of ischemic heart disease and other diseases of the circulatory system; Z82.3 Family history of stroke

== ENCOUNTER → 2016-08-01 | Outpatient (CLI) | payer OTHER ==
[~2016-08-01] MED LIST changes: +BISA-49 PO; +CITA40TA4 PO; +DICY20TA35 PO; +DULO60CA44 PO; +FAMO1TAB47 PO; -FAMO20TA12 PO; +FURO-85 PO; -HYDR2TAB2 PO; +INSDGI SC; +INSU100I23 SC; +INSU3INJ3 SC; -LINE1TAB2 PO; +MAGN250T22 PO; -ONDA4TAB10 SL; +PANT40TA PO; +POTA550T4 PO; +SENN-61 PO; -ZOLP5TAB PO; +[UNRECOGNIZED DRUG - CODE] IVF
[2016-08-01 16:39] LABS: HEMATOCRIT 39.4 % (37-47); MEAN CELL VOLUME 91.4 fL (80-100); MEAN CORPUSCULAR HEMOGLOBIN 30.6 pg (25-34); MEAN CORPUSCULAR HGB CONC 33.5 g/dl (32-36); PLATELET COUNT 186 K/uL (130-400); RED BLOOD COUNT 4.31 M/uL (4.2-5.4); WHITE BLOOD COUNT 8.08 K/uL (4.8-10.8)
[2016-08-01 17:01] LABS: ALT/SGPT 53 U/L (12-78); BLOOD UREA NITROGEN 18 mg/dl (7-18); BUN/CREATININE RATIO 15.2 (10-20); C-REACTIVE PROTEIN < 0.29 mg/dl (0-0.29); CARBON DIOXIDE 32 mmol/L (21-32); CHLORIDE 99 mmol/L (98-107); GLUCOSE 343 mg/dl (70-99); POTASSIUM 3.5 mmol/L (3.5-5.1); SODIUM 138 mmol/L (136-145)
[2016-08-01 17:04] LABS: ALB/GLOB RATIO 1.1 (0.9-2); AST/SGOT 47 U/L (15-37)
[2016-08-01 17:11] LABS: ALKALINE PHOSPHATASE 148 U/L (45-117); BETA-HYDROXYBUTYRATE 1.34 mg/dL (0.2-2.81)
== END | disposition home or self-care (01) ==
LOC: C.LABSPEC 08:04
PROVIDERS: ATTEND Internal Medicine Infectious Disease
DX: A41.9 Sepsis, unspecified organism (principal)

== ENCOUNTER → 2016-08-06 | Outpatient (CLI) | payer OTHER ==
[~2016-08-06] MED LIST changes: -CITA40TA4 PO; -FURO-85 PO; -INSU100I23 SC; -MAGN250T22 PO; -POTA550T4 PO
[2016-08-06 18:20] LABS: HEMATOCRIT 40.6 % (37-47); MEAN CELL VOLUME 90.8 fL (80-100); MEAN CORPUSCULAR HEMOGLOBIN 30.4 pg (25-34); MEAN CORPUSCULAR HGB CONC 33.5 g/dl (32-36); MEAN PLATELET VOLUME 11.5 fL (7.4-10.4); PLATELET COUNT 230 K/uL (130-400); RED BLOOD COUNT 4.47 M/uL (4.2-5.4); WHITE BLOOD COUNT 12.81 K/uL (4.8-10.8)
[2016-08-06 18:38] LABS: ALT/SGPT 39 U/L (12-78); BLOOD UREA NITROGEN 43 mg/dl (7-18); BUN/CREATININE RATIO 22.8 (10-20); C-REACTIVE PROTEIN 0.35 mg/dl (0-0.29); CALCIUM 9.6 mg/dl (8.5-10.1); CARBON DIOXIDE 29 mmol/L (21-32); CHLORIDE 97 mmol/L (98-107); GLUCOSE 225 mg/dl (70-99); POTASSIUM 4.2 mmol/L (3.5-5.1); SODIUM 136 mmol/L (136-145)
[2016-08-06 18:41] LABS: ALKALINE PHOSPHATASE 164 U/L (45-117); AST/SGOT 26 U/L (15-37)
--- NOTE | 2016-08-16 11:43 | CODING QUERY MEDICAL NECESSITY ---
CQSUPPORTING DIAGNOSIS NEEDED A supporting diagnosis is required for the test/procedure performed on this patient in order for us to be reimbursed by the patient's insurance. Please provide a supporting diagnosis for the following test/procedure listed below next to the test name along with your signature. *If there is no additional diagnosis for this patient that would support the following test/procedure please document that below next to the test/procedure. Test(s)/Procedure(s) that require a supporting diagnosis: DOS 08/06/16 NEED DIAGNOSIS FOR TESTS DONE-- CBC TEST, ERYTHROCYTE SEDIMENT, C-REACTIVE PROTEIN, COMPREHENSIVE METABOLIC TEST ORDERED BY COLLEEN SCHAFFER Provider Signature: Date: Thank you Sheron Ahumada Health Information Management Once completed, please kindly fax back to [phone] For questions please call [phone]
== END | disposition home or self-care (01) ==
LOC: C.LAB 17:40
PROVIDERS: ATTEND Internal Medicine Infectious Disease
DX: A41.9 Sepsis, unspecified organism (principal); Z79.899 Other long term (current) drug therapy

== ENCOUNTER → 2016-08-14 | Outpatient (CLI) | payer OTHER ==
[2016-08-14 19:16] LABS: MEAN CELL VOLUME 89.7 fL (80-100); MEAN CORPUSCULAR HEMOGLOBIN 29.2 pg (25-34); MEAN CORPUSCULAR HGB CONC 32.6 g/dl (32-36); MEAN PLATELET VOLUME 10.2 fL (7.4-10.4); PLATELET COUNT 234 K/uL (130-400); RED BLOOD COUNT 4.35 M/uL (4.2-5.4); WHITE BLOOD COUNT 10.33 K/uL (4.8-10.8)
[2016-08-14 19:41] LABS: ALT/SGPT 30 U/L (12-78); AST/SGOT 21 U/L (15-37); BLOOD UREA NITROGEN 21 mg/dl (7-18); BUN/CREATININE RATIO 15.2 (10-20); CALCIUM 9.4 mg/dl (8.5-10.1); CARBON DIOXIDE 28 mmol/L (21-32); CHLORIDE 102 mmol/L (98-107); GLUCOSE 190 mg/dl (70-99); POTASSIUM 3.8 mmol/L (3.5-5.1); SODIUM 139 mmol/L (136-145)
[2016-08-14 19:44] LABS: ALB/GLOB RATIO 1.1 (0.9-2); ALKALINE PHOSPHATASE 117 U/L (45-117); C-REACTIVE PROTEIN < 0.29 mg/dl (0-0.29)
== END | disposition home or self-care (01) ==
LOC: C.LABSPEC 12:05
PROVIDERS: ATTEND Internal Medicine Infectious Disease
DX: A41.9 Sepsis, unspecified organism (principal)

== ENCOUNTER → 2016-08-27 | Outpatient (CLI) | payer OTHER ==
[2016-08-27 15:35] LABS: HEMATOCRIT 40.4 % (37-47); MEAN CELL VOLUME 91.2 fL (80-100); MEAN CORPUSCULAR HEMOGLOBIN 29.3 pg (25-34); MEAN CORPUSCULAR HGB CONC 32.2 g/dl (32-36); MEAN PLATELET VOLUME 10.4 fL (7.4-10.4); PLATELET COUNT 235 K/uL (130-400); RED BLOOD COUNT 4.43 M/uL (4.2-5.4); WHITE BLOOD COUNT 7.93 K/uL (4.8-10.8)
[2016-08-27 15:43] LABS: ALT/SGPT 24 U/L (12-78); BLOOD UREA NITROGEN 20 mg/dl (7-18); BUN/CREATININE RATIO 17.9 (10-20); C-REACTIVE PROTEIN < 0.29 mg/dl (0-0.29); CALCIUM 9.3 mg/dl (8.5-10.1); CARBON DIOXIDE 28 mmol/L (21-32); CHLORIDE 100 mmol/L (98-107); GLUCOSE 264 mg/dl (70-99); SODIUM 135 mmol/L (136-145)
[2016-08-27 15:46] LABS: ALKALINE PHOSPHATASE 143 U/L (45-117); AST/SGOT 14 U/L (15-37)
== END | disposition home or self-care (01) ==
LOC: C.LABSPEC 14:47
PROVIDERS: ATTEND Internal Medicine Infectious Disease
DX: Z51.81 Encounter for therapeutic drug level monitoring (principal); Z79.2 Long term (current) use of antibiotics

== ENCOUNTER → 2016-09-04 | Outpatient (CLI) | payer OTHER ==
[2016-09-04 19:22] LABS: HEMATOCRIT 38.6 % (37-47); MEAN CORPUSCULAR HEMOGLOBIN 30.2 pg (25-34); MEAN CORPUSCULAR HGB CONC 33.2 g/dl (32-36); MEAN PLATELET VOLUME 10.6 fL (7.4-10.4); PLATELET COUNT 241 K/uL (130-400); RED BLOOD COUNT 4.24 M/uL (4.2-5.4); WHITE BLOOD COUNT 7.19 K/uL (4.8-10.8)
[2016-09-04 19:39] LABS: ALT/SGPT 24 U/L (12-78); AST/SGOT 14 U/L (15-37); BLOOD UREA NITROGEN 9 mg/dl (7-18); BUN/CREATININE RATIO 10.5 (10-20); CALCIUM 9.3 mg/dl (8.5-10.1); CARBON DIOXIDE 31 mmol/L (21-32); CHLORIDE 100 mmol/L (98-107); CREATININE 0.85 mg/dl (0.60-1.20); GLUCOSE 234 mg/dl (70-99); POTASSIUM 3.6 mmol/L (3.5-5.1); SODIUM 138 mmol/L (136-145)
[2016-09-04 19:42] LABS: ALB/GLOB RATIO 0.8 (0.9-2); ALKALINE PHOSPHATASE 137 U/L (45-117); C-REACTIVE PROTEIN 2.12 mg/dl (0-0.29)
== END | disposition home or self-care (01) ==
LOC: C.LABSPEC 17:55
PROVIDERS: ATTEND Internal Medicine Infectious Disease
DX: A41.9 Sepsis, unspecified organism (principal)

== ENCOUNTER → 2016-09-10 | Outpatient (CLI) | payer OTHER ==
[2016-09-10 20:49] LABS: HEMATOCRIT 35.9 % (37-47); MEAN CELL VOLUME 91.6 fL (80-100); MEAN CORPUSCULAR HEMOGLOBIN 31.1 pg (25-34); MEAN PLATELET VOLUME 10.3 fL (7.4-10.4); PLATELET COUNT 260 K/uL (130-400); RED BLOOD COUNT 3.92 M/uL (4.2-5.4)
[2016-09-10 21:09] LABS: ALT/SGPT 20 U/L (12-78); BLOOD UREA NITROGEN 16 mg/dl (7-18); C-REACTIVE PROTEIN < 0.29 mg/dl (0-0.29); CALCIUM 9.6 mg/dl (8.5-10.1); CARBON DIOXIDE 29 mmol/L (21-32); CHLORIDE 100 mmol/L (98-107); GLUCOSE 156 mg/dl (70-99); POTASSIUM 3.8 mmol/L (3.5-5.1); SODIUM 137 mmol/L (136-145)
[2016-09-10 21:12] LABS: ALKALINE PHOSPHATASE 114 U/L (45-117); AST/SGOT 17 U/L (15-37)
== END | disposition home or self-care (01) ==
LOC: C.LAB 19:50
PROVIDERS: ATTEND Internal Medicine Infectious Disease
DX: A41.9 Sepsis, unspecified organism (principal)

== ENCOUNTER → 2016-09-25 | Outpatient (CLI) | payer OTHER ==
[2016-09-25 19:27] LABS: HEMATOCRIT 40.7 % (37-47); MEAN CELL VOLUME 92.3 fL (80-100); MEAN CORPUSCULAR HEMOGLOBIN 31.7 pg (25-34); MEAN CORPUSCULAR HGB CONC 34.4 g/dl (32-36); MEAN PLATELET VOLUME 11.6 fL (7.4-10.4); PLATELET COUNT 218 K/uL (130-400); RED BLOOD COUNT 4.41 M/uL (4.2-5.4); WHITE BLOOD COUNT 8.76 K/uL (4.8-10.8)
[2016-09-25 19:35] LABS: ALT/SGPT 24 U/L (12-78); AST/SGOT 22 U/L (15-37); BLOOD UREA NITROGEN 16 mg/dl (7-18); BUN/CREATININE RATIO 15.7 (10-20); CALCIUM 9.1 mg/dl (8.5-10.1); CARBON DIOXIDE 29 mmol/L (21-32); CHLORIDE 104 mmol/L (98-107); GLUCOSE 152 mg/dl (70-99); POTASSIUM 4.3 mmol/L (3.5-5.1); SODIUM 137 mmol/L (136-145)
[2016-09-25 19:38] LABS: ALB/GLOB RATIO 0.9 (0.9-2); ALKALINE PHOSPHATASE 128 U/L (45-117)
== END | disposition home or self-care (01) ==
LOC: C.LABSPEC 10:08
PROVIDERS: ATTEND Internal Medicine Infectious Disease
DX: Z51.81 Encounter for therapeutic drug level monitoring (principal); Z79.2 Long term (current) use of antibiotics; A41.9 Sepsis, unspecified organism

== ENCOUNTER → 2016-10-21 | Outpatient (CLI) | payer OTHER ==
--- NOTE | 2016-10-21 11:32 | DIAGNOSTIC IMAGING REPORT ---
CHEST 2 VIEWS ROUTINE CLINICAL HISTORY: J18.9 PneumoniaPossible right pneumonia, right sided chest painR COMPARISON STUDY: 07/24/2016 FINDINGS: The heart is the upper limits of normal in size. There is a right-sided PICC catheter tip of which projects over the superior vena cava. There is no failure. There is no focal pulmonary consolidation. No pleural effusions are visualized. Again evident is a chronic deformity of the left shoulder.[ IMPRESSION: No active disease in the chest. Electronically signed by: Maury Costello M.D. 10/21/2016 11:31 AM Dictated Date/Time: 10/21/2016 11:30 AM
== END | disposition home or self-care (01) ==
LOC: C.RAD1850 10:59
PROVIDERS: ATTEND Internal Medicine Infectious Disease
DX: J18.9 Pneumonia, unspecified organism (principal)

== ENCOUNTER 2016-10-31 16:52 | Emergency (ER) | payer OTHER ==
[~2016-10-31] VITALS: Ht 168.9 cm; Wt 93.1 kg
[~2016-10-31 16:52] MED LIST changes: -DICY20TA35 PO; -FAMO1TAB47 PO; -INSDGI SC; -INSU3INJ3 SC; -[UNRECOGNIZED DRUG - CODE] IVF
[2016-10-31 16:56] VITALS: TEMP 36.4; Ht 168.9 cm; Wt 93.1 kg
[2016-10-31] MEDS ORDERED: ONDANSETRON INJ 2 MG/ML 2 ML VIAL IV STA (18:17)
[2016-10-31] MEDS ORDERED: KETOROLAC TROMETHAMINE 30 MG/ML VIAL IV STA (18:17)
[2016-10-31] MEDS ORDERED: SODIUM CHLORIDE 0.9% 1000ML 500 ML IV STA (18:17)
--- NOTE | 2016-10-31 18:20 | EMERGENCY ROOM VISIT NOTE ---
History Report prepared by [place]: Devan Sanchez Under the Supervision of: Dr. Stuart El M.D. First contact with patient: 18:13 Chief Complaint: ABDOMINAL PAIN Stated Complaint: PAINS DOWN RT SIDE UNDER BREAST TO BACK Nursing Triage Summary: Ruq pain that radiates to her R flank, on going for 1.5 wks, c/o diarrhea History of Present Illness The patient is a 71 year old female who presents to the Emergency Room with complaints of persistent right-sided abdominal pain that started a week and a half ago. She says that the pain radiates to her right flank, up into her right ribs, and around to her spine. The patient states that movement, eating, drinking, sneezing, and coughing worsens the pain. She notes that eating worsens the pain the most. She denies any notable nausea, cough, urinary symptoms, or bowel issues. She also denies any recent falls. The patient has a history of a cholecystectomy, appendectomy, hysterectomy, tubal ligation, gallstone surgery, among others. Source of History: patient Onset: A week and a half ago Position: abdomen (right-sided) Timing: other (persistent) Modifying Factors (Worsening): eating, drinking, movement, other (sneezing, coughing) Associated Symptoms: + back pain, No cough, No nausea, No urinary symptoms Note: Associated symptoms: Radiation of pain to right flank, right ribs. Denies bowel issues. Review of Systems See HPI for pertinent positives & negatives. A total of 10 systems reviewed and were otherwise negative. 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 (13) loose glenoid (14) Opioid Dependence-Unspec (15) Other Chronic Pain (16) Pure Hypercholesterolem (17) Recurrent falls (18) Rheumatoid arthritis (19) Sinus tachycardia (20) Sleep apnea Surgical Problems: (1) Cholecystectomy (2) Hysterectomy Family History Diabetes mellitus FH: heart disease Hypertension Kidney disease Kidney stones Seizures Stroke Social History Smoking Status: Never Smoker Alcohol Use: none Drug Use: none Marital Status: Housing Status: lives alone Occupation Status: retired Current/Historical Medications Scheduled Amlodipine (Norvasc), 5 MG PO QAM Aspirin (Aspirin Ec), 81 MG PO DAILY Bisacodyl (Cvs Bisacodyl), 5 MG PO DAILY Clonidine Hcl (Catapres), 0.1 MG PO BID Clopidogrel Bisulfate (Clopidogrel), 75 MG PO DAILY Duloxetine Hcl (Cymbalta), 60 MG PO DAILY Famotidine (Famotidine), 1 TAB PO DAILY Ferrous Sulfate (Ferrous Sulfate), 325 MG PO BID Furosemide (Furosemide), 40 MG PO DAILY Gabapentin (Gabapentin), 600 MG PO TID Heparin Sodium (Porcine) Lock (Heparin Lock Flush/Nacl F), 1 DOSE IVF DAILY Insulin Detemir (Levemir Flextouch), 12 UNITS SC QPM Ipratropium-Albuterol (Combivent Respimat), 2 PUFFS INH QID Lisinopril (Lisinopril), 40 MG PO QAM Lorazepam (Lorazepam), 0.5 MG PO TID Magnesium Oxide (Mag-Ox), 400 MG PO TID Melatonin (Melatonin), 10 MG PO HS Metoprolol Tartrate (Lopressor) (Lopressor), 100 MG PO HS Pantoprazole (Protonix), 40 MG PO DAILY Potassium Gluconate (Potassium Gluconate), 297.5 MG PO DAILY Rosuvastatin Calcium (Rosuvastatin Calcium), 20 MG PO HS Senna (Senokot), 8.6 MG PO DAILY Sitagliptin-Metformin Hcl (Janumet), 1 TAB PO BID Scheduled PRN Diclofenac Sodium (Topical) (Diclofenac Sodium), 1 APPLN TOP QID PRN for Pain Docusate Sodium (Docusate Sodium), 100 MG PO DAILY PRN for Constipation Ipratropium-Albuterol (Duoneb), 1 TREATMENT NEB Q6H PRN for SOB/Wheezing Polyethylene Glycol 3350 (Miralax), 17 GM PO HS PRN for Constipation Allergies Coded Allergies: Cephalosporins (Verified Allergy, Unknown, RINGING OF EARS,FALLING BALANCE ISSUES, 10/31/16) Prochlorperazine (Verified Allergy, Unknown, STROKE LIKE SYMPTOMS, CAN'T TALK, 10/31/16) Linezolid (Verified Adverse Reaction, Unknown, diarrhea,vomiting, 10/31/16) Morphine (Verified Adverse Reaction, Unknown, NOT EFFECTIVE, 10/31/16) Tramadol (Verified Adverse Reaction, Unknown, UNSTEADY ON FEET, HYPERACTIVITYY, 10/31/16) Physical Exam Vital Signs Date Time Temp Pulse Resp B/P (MAP) Pulse Ox O2 Delivery O2 Flow Rate FiO2 10/31/16 22:57 84 16 133/70 98 10/31/16 21:11 79 18 131/59 96 Room Air 10/31/16 19:11 81 20 140/83 97 Room Air 10/31/16 16:56 36.4 87 18 152/91 97 Room Air Physical Exam GENERAL: Patient is in no acute distress. HEENT: No acute trauma, normocephalic atraumatic, mucous membranes moist, no nasal congestion, no scleral icterus. NECK: No stridor, no adenopathy, no meningismus, trachea is midline. LUNGS: Clear to auscultation bilaterally, no wheeze, no rhonchi, breath sounds equal. HEART: 2/6 systolic murmur. Regular rate and rhythm. CHEST: Tender to the right lateral chest wall, no contusion or rash. ABDOMEN: Small reducible umbilical hernia. Tender along entire right side. Soft , bowel sounds positive, no peritonitis. EXTREMITIES: No cyanosis or edema, full range of motion of all the joints without pain or difficulty, no signs for acute trauma. NEUROLOGIC: Oriented x 3, no acute motor or sensory deficits, no focal weakness. SKIN: No rash, no jaundice, no diaphoresis. Medical Decision & Procedures ER Provider Diagnostic Interpretation: Radiology results as stated below per my review and radiologist interpretation: CHEST ONE VIEW PORTABLE CLINICAL HISTORY: Pain, radiating to the abdomen. COMPARISON STUDY: No previous studies for comparison. FINDINGS: The cardiac and mediastinal contours are normal. There is no evidence of focal pulmonary consolidation. There is no evidence of failure. No pleural effusions are visualized.[ The right-sided PICC catheter remains unchanged in position. There is no free intraperitoneal air. Advanced erosive/destructive changes involve the proximal left humerus. IMPRESSION: No active disease in the chest. Electronically signed by: Maury Costello M.D. 10/31/2016 6:46 PM Dictated Date/Time: 10/31/2016 6:46 PM ABD/PELVIS NO IV OR ORAL CONT CLINICAL HISTORY: 71 years-old Female presenting with ABD PAIN, POSSIBLE OBSTRUCTION, NO CONTRAST. TECHNIQUE: Multidetector CT of the abdomen and pelvis was performed without the use of intravenous contrast. IV contrast: None. A dose lowering technique was used consistent with the principles of ALARA (as low as reasonably achievable). COMPARISON: 05/31/2016. CT DOSE (mGy.cm): The estimated cumulative dose is 838.30 mGy.cm. FINDINGS: Route Sales Specialist topogram: Unremarkable. Lung bases: Minimal dependent changes likely atelectasis. Multichamber enlargement of the heart. Mitral annular, coronary artery, aortic valve calcification. No pericardial or pleural effusion. Liver: Mildly nodular contour, which could suggest cirrhosis. Normal density. Biliary: No gross biliary ductal dilatation allowing for noncontrast technique. Normal gallbladder. Pancreas: Moderate parenchymal atrophy. Spleen: Normal noncontrast appearance. Adrenal glands: Normal noncontrast appearance. Kidneys and ureters: Normal noncontrast appearance. No hydronephrosis. Bladder: Normal. Pelvic organs: Uterus surgically absent. No adnexal masses. Bowel: Limited diverticulosis of the sigmoid colon with associated wall thickening suggesting chronic diverticular disease. No evidence of bowel obstruction. Peritoneal cavity: Peritoneal thickening in the pelvis may be postsurgical in etiology. No free fluid or gas. Vasculature: IVC filter in place. Atherosclerosis of the normal caliber abdominal aorta. Lymph nodes: No gross lymphadenopathy allowing for noncontrast technique. Abdominal wall: Diastasis of the rectus abdominis. Small fat-containing umbilical hernia. Musculoskeletal: Degenerative changes of the spine with sclerotic endplate changes at T12-L1. Total right hip arthroplasty. Degenerative changes of the pubic symphysis. IMPRESSION: 1. No evidence of bowel obstruction or acute intra-abdominal pathology. 2. Chronic diverticular disease of the sigmoid colon. No diverticulitis. 3. Mildly nodular contour of the liver, which could suggest underlying cirrhosis. 4. Cardiomegaly. Electronically signed by: Keegan Packer M.D. 10/31/2016 9:24 PM Dictated Date/Time: 10/31/2016 9:17 PM Laboratory Results 10/31/16 18:35 Red Blood Count 3.86, Mean Corpuscular Volume 94.8, Mean Corpuscular Hemoglobin 31.1, Mean Corpuscular Hemoglobin Concent 32.8, Mean Platelet Volume 10.7, Neutrophils (%) (Auto) 59.1, Lymphocytes (%) (Auto) 28.7, Monocytes (%) (Auto) 9.3, Eosinophils (%) (Auto) 2.5, Basophils (%) (Auto) 0.1, Neutrophils # (Auto) 4.52, Lymphocytes # (Auto) 2.19, Monocytes # (Auto) 0.71, Eosinophils # (Auto) 0.19, Basophils # (Auto) 0.01 10/31/16 18:35 Test 10/31/16 18:35 10/31/16 20:12 10/31/16 21:55 White Blood Count 7.64 K/uL (4.8-10.8) Red Blood Count 3.86 M/uL (4.2-5.4) Hemoglobin 12.0 g/dL (12.0-16.0) Hematocrit 36.6 % (37-47) Mean Corpuscular Volume 94.8 fL (80-100) Mean Corpuscular Hemoglobin 31.1 pg (25-34) Mean Corpuscular Hemoglobin Concent 32.8 g/dl (32-36) Platelet Count 158 K/uL (130-400) Mean Platelet Volume 10.7 fL (7.4-10.4) Neutrophils (%) (Auto) 59.1 % Lymphocytes (%) (Auto) 28.7 % Monocytes (%) (Auto) 9.3 % Eosinophils (%) (Auto) 2.5 % Basophils (%) (Auto) 0.1 % Neutrophils # (Auto) 4.52 K/uL (1.4-6.5) Lymphocytes # (Auto) 2.19 K/uL (1.2-3.4) Monocytes # (Auto) 0.71 K/uL (0.11-0.59) Eosinophils # (Auto) 0.19 K/uL (0-0.5) Basophils # (Auto) 0.01 K/uL (0-0.2) RDW Standard Deviation 46.3 fL (36.4-46.3) RDW Coefficient of Variation 13.4 % (11.5-14.5) Immature Granulocyte % (Auto) 0.3 % Immature Granulocyte # (Auto) 0.02 K/uL (0.00-0.02) Prothrombin Time 10.5 SECONDS (9.0-12.0) Prothromb Time International Ratio 1.0 (0.9-1.1) Activated Partial Thromboplast Time 28.2 SECONDS (21.0-31.0) Partial Thromboplastin Ratio 1.1 Anion Gap 7.0 mmol/L (3-11) Est Creatinine Clear Calc Drug Dose 53.6 ml/min Estimated GFR () 58.1 Estimated GFR (Non- 50.1 BUN/Creatinine Ratio 13.5 (10-20) Lactic Acid Level 1.5 mmol/L (0.4-2.0) Calcium Level 9.0 mg/dl (8.5-10.1) Magnesium Level 1.6 mg/dl (1.8-2.4) Total Bilirubin 0.3 mg/dl (0.2-1) Aspartate Amino Transf (AST/SGOT) 40 U/L (15-37) Alanine Aminotransferase (ALT/SGPT) 41 U/L (12-78) Alkaline Phosphatase 119 U/L (45-117) Total Protein 7.3 gm/dl (6.4-8.2) Albumin 3.7 gm/dl (3.4-5.0) Globulin 3.6 gm/dl (2.5-4.0) Albumin/Globulin Ratio 1.0 (0.9-2) Lipase 91 U/L (73-393) Bedside Glucose 169 mg/dl (70-90) Urine Color YELLOW Urine Appearance CLEAR (CLEAR) Urine pH 5.0 (4.5-7.5) Urine Specific [place] 1.023 (1.000-1.030) Urine Protein NEG (NEG) Urine Glucose (UA) NEG (NEG) Urine Ketones TRACE (NEG) Urine Occult Blood NEG (NEG) Urine Nitrite NEG (NEG) Urine Bilirubin NEG (NEG) Urine Urobilinogen NEG (NEG) Urine Leukocyte Esterase SMALL (NEG) Urine WBC (Auto) 5-10 /hpf (0-5) Urine RBC (Auto) 0-4 /hpf (0-4) Urine Hyaline Casts (Auto) 10-30 /lpf (0-5) Urine Epithelial Cells (Auto) 20-30 /lpf (0-5) Urine Bacteria (Auto) NEG (NEG) Laboratory results reviewed by me. Urine dip shows trace protein, no evidence for infection Medications Administered Medications (Trade) Dose Ordered Sig/Krystal Route Start Time Stop Time Status Last Admin Dose Admin Sodium Chloride 500 ml @ 999 mls/hr Q31M STAT IV 10/31/16 18:17 10/31/16 18:47 DC 10/31/16 18:59 999 MLS/HR Ondansetron HCl (Zofran Inj) 4 mg NOW STAT IV 10/31/16 18:17 10/31/16 18:23 DC 10/31/16 19:00 4 MG Ketorolac Tromethamine (Toradol Inj) 30 mg NOW STAT IV 10/31/16 18:17 10/31/16 18:23 DC 10/31/16 19:00 30 MG Hydromorphone HCl (Dilaudid Inj) 0.5 mg Q15M PRN IV 10/31/16 18:30 11/01/16 01:06 DC 10/31/16 19:01 0.5 MG Magnesium Sulfate (Magnesium Sulfate) 2 gm NOW STAT IV 10/31/16 19:20 10/31/16 19:21 DC 10/31/16 19:20 2 GM ED Course 1812: The patient was evaluated in room A2. A complete history and physical exam was performed. 1816: Ordered Toradol Inj 30 mg IV, Zofran Inj 4 mg IV, NSS 500 ml @ 999 mls/hr IV. 1829: Ordered Dilaudid Inj 0.5 mg IV PRN. 1919: Ordered Magnesium Sulfate 2 gm IV. 2127: Reevaluated the patient and she will give us a urine sample now. I updated her on all testing. Medical Decision Differential diagnosis includes but is not limited to musculoskeletal pain, shingles, pneumonia, nerve impingement, adhesions, bowel obstruction, UTI, pyelonephritis, hernia. There is no leukocytosis or concerning anemia. No significant kidney failure. Magnesium was somewhat low at 1.6. No hepatitis or pancreatitis. Urinalysis does not show infection but more so contamination. Lactic acid level was not elevated making bowel ischemia less likely. Chest film did not show pneumonia or free air. There was no pneumothorax. Abdominal and pelvis CT did not show any bowel obstruction or acute surgical process. On exam, the patient was not toxic or febrile. There was no peritonitis. Her pain has been ongoing for a week and a half. The patient received IV Zofran, IV Toradol, IV Dilaudid and IV saline. She received IV magnesium for the low magnesium value. The patient is resting comfortably. The cause for the pain is unclear but certainly could be musculoskeletal and/or related to adhesions. She is being referred back to her family doctor's office. If worsening, she can return. She was given an oxycodone home pack at discharge. [place] Drug Monitoring Program Search Results: patient reviewed within database Drug Monitoring Findings: Patient has had prescriptions for Ativan but has not had any narcotic prescriptions since April. Medication Reconcilliation Current Medication List: was personally reviewed by me Blood Pressure Screening Patient's blood pressure: Elevated blood pressure Blood pressure disposition: Elevated BP felt to be situational Impression Primary Impression: Right sided abdominal pain Additional Impression: Right flank pain Scribe Attestation The scribe's documentation has been prepared under my direction and personally reviewed by me in its entirety. I confirm that the note above accurately reflects all work, treatment, procedures, and medical decision making performed by me. Departure Information Dispostion Home / Self-Care Referrals Radha Gonzalez (PCP) Patient Instructions [facility] Problem Qualifiers
[2016-10-31] MEDS ORDERED: [UNRECOGNIZED DRUG - CODE] IVF (18:21)
[2016-10-31] MEDS ORDERED: INSDGI SC (18:21)
[2016-10-31] MEDS ORDERED: FAMO1TAB47 PO (18:25)
[2016-10-31] MEDS ORDERED: INSU3INJ3 SC (18:25)
[2016-10-31] MEDS ORDERED: HYDROmorphone INJ 2 MG/ML SYR/VIAL IV PRN (18:30)
[2016-10-31] MEDS ORDERED: OPTIRAY 320 IV PRN (18:30)
--- NOTE | 2016-10-31 18:48 | DIAGNOSTIC IMAGING REPORT ---
CHEST ONE VIEW PORTABLE CLINICAL HISTORY: Pain, radiating to the abdomen. COMPARISON STUDY: No previous studies for comparison. FINDINGS: The cardiac and mediastinal contours are normal. There is no evidence of focal pulmonary consolidation. There is no evidence of failure. No pleural effusions are visualized.[ The right-sided PICC catheter remains unchanged in position. There is no free intraperitoneal air. Advanced erosive/destructive changes involve the proximal left humerus. IMPRESSION: No active disease in the chest. Electronically signed by: Maury Costello M.D. 10/31/2016 6:46 PM Dictated Date/Time: 10/31/2016 6:46 PM
[2016-10-31 18:51] LABS: BASO % 0.1 %; BASO ABS # 0.01 K/uL (0-0.2); COMPLETE YES; EOS % 2.5 %; HEMATOCRIT 36.6 % (37-47); IG% 0.3 %; LYMPH % 28.7 %; LYMPH ABS # 2.19 K/uL (1.2-3.4); MEAN CELL VOLUME 94.8 fL (80-100); MEAN CORPUSCULAR HEMOGLOBIN 31.1 pg (25-34); MEAN CORPUSCULAR HGB CONC 32.8 g/dl (32-36); MEAN PLATELET VOLUME 10.7 fL (7.4-10.4); MONO % 9.3 %; NEUT % 59.1 %; PLATELET COUNT 158 K/uL (130-400); RED BLOOD COUNT 3.86 M/uL (4.2-5.4); WHITE BLOOD COUNT 7.64 K/uL (4.8-10.8)
[2016-10-31 19:13] LABS: PARTIAL THROMBOPLASTIN RATIO 1.1; PROTHROMBIN TIME (PATIENT) 10.5 SECONDS (9.0-12.0)
[2016-10-31 19:16] LABS: BUN/CREATININE RATIO 13.5 (10-20); CREATININE 1.1 mg/dl (0.60-1.20); MAGNESIUM 1.6 mg/dl (1.8-2.4); POTASSIUM 3.7 mmol/L (3.5-5.1)
[2016-10-31] MEDS ORDERED: MAGNESIUM SULFATE 1GM / D5W 1 GM BAG IV STA (19:20)
--- NOTE | 2016-10-31 21:26 | DIAGNOSTIC IMAGING REPORT ---
ABD/PELVIS NO IV OR ORAL CONT CLINICAL HISTORY: 71 years-old Female presenting with ABD PAIN, POSSIBLE OBSTRUCTION, NO CONTRAST. TECHNIQUE: Multidetector CT of the abdomen and pelvis was performed without the use of intravenous contrast. IV contrast: None. A dose lowering technique was used consistent with the principles of ALARA (as low as reasonably achievable). COMPARISON: 05/31/2016. CT DOSE (mGy.cm): The estimated cumulative dose is 838.30 mGy.cm. FINDINGS: Machine Accountant topogram: Unremarkable. Lung bases: Minimal dependent changes likely atelectasis. Multichamber enlargement of the heart. Mitral annular, coronary artery, aortic valve calcification. No pericardial or pleural effusion. Liver: Mildly nodular contour, which could suggest cirrhosis. Normal density. Biliary: No gross biliary ductal dilatation allowing for noncontrast technique. Normal gallbladder. Pancreas: Moderate parenchymal atrophy. Spleen: Normal noncontrast appearance. Adrenal glands: Normal noncontrast appearance. Kidneys and ureters: Normal noncontrast appearance. No hydronephrosis. Bladder: Normal. Pelvic organs: Uterus surgically absent. No adnexal masses. Bowel: Limited diverticulosis of the sigmoid colon with associated wall thickening suggesting chronic diverticular disease. No evidence of bowel obstruction. Peritoneal cavity: Peritoneal thickening in the pelvis may be postsurgical in etiology. No free fluid or gas. Vasculature: IVC filter in place. Atherosclerosis of the normal caliber abdominal aorta. Lymph nodes: No gross lymphadenopathy allowing for noncontrast technique. Abdominal wall: Diastasis of the rectus abdominis. Small fat-containing umbilical hernia. Musculoskeletal: Degenerative changes of the spine with sclerotic endplate changes at T12-L1. Total right hip arthroplasty. Degenerative changes of the pubic symphysis. IMPRESSION: 1. No evidence of bowel obstruction or acute intra-abdominal pathology. 2. Chronic diverticular disease of the sigmoid colon. No diverticulitis. 3. Mildly nodular contour of the liver, which could suggest underlying cirrhosis. 4. Cardiomegaly. Electronically signed by: Keegan Packer M.D. 10/31/2016 9:24 PM Dictated Date/Time: 10/31/2016 9:17 PM
[2016-10-31] MEDS ORDERED: OXYCODONE IR HOME PACK PO ONE (22:15)
[2016-10-31 22:32] LABS: URINE APPEARANCE CLEAR (CLEAR); URINE BILIRUBIN NEG (NEG); URINE COLOR YELLOW; URINE EPITHELIAL CELL AUTO 20-30 /lpf (0-5); URINE NITRITE NEG (NEG); URINE SPECIFIC GRAVITY 1.023 (1.000-1.030); UROBILINOGEN NEG (NEG); ZZUR CULT IF INDIC CLEAN CATCH NO
[2016-10-31 22:33] LABS: MANUAL MICROSCOPIC REQUIRED? NO; REVIEW REQ? NO
[2016-10-31 22:57] VITALS: BP 133/70; PULSE 84; O2SAT 98
== END 2016-10-31 22:58 | disposition home or self-care (01) ==
LOC: C.EDB 16:53 → C.EDA 22:58
DX: R10.9 Unspecified abdominal pain (principal); Z90.49 Acquired absence of other specified parts of digestive tract; Z90.710 Acquired absence of both cervix and uterus; Z98.51 Tubal ligation status; J45.909 Unspecified asthma, uncomplicated; I10 Essential (primary) hypertension; G89.29 Other chronic pain; M54.9 Dorsalgia, unspecified; M79.606 Pain in leg, unspecified; E11.9 Type 2 diabetes mellitus without complications; M10.9 Gout, unspecified; E78.00 Pure hypercholesterolemia, unspecified; M06.9 Rheumatoid arthritis, unspecified; G47.30 Sleep apnea, unspecified; Z83.3 Family history of diabetes mellitus; Z82.49 Family history of ischemic heart disease and other diseases of the circulatory system; Z84.1 Family history of disorders of kidney and ureter; Z82.0 Family history of epilepsy and other diseases of the nervous system; Z82.3 Family history of stroke; Z79.82 Long term (current) use of aspirin; Z79.899 Other long term (current) drug therapy; Z79.84 Long term (current) use of oral hypoglycemic drugs

== ENCOUNTER 2016-11-04 15:32 | Emergency (ER) | payer OTHER ==
[~2016-11-04] VITALS: Ht 167.6 cm; Wt 91.9 kg
[~2016-11-04 15:32] MED LIST changes: +FAMO1TAB47 PO; +INSU3INJ3 SC; +[UNRECOGNIZED DRUG - CODE] IVF
[2016-11-04 15:40] VITALS: TEMP 37; Ht 167.6 cm; Wt 91.9 kg
--- NOTE | 2016-11-04 16:55 | EMERGENCY ROOM VISIT NOTE ---
History Report prepared by Garyibbeth: Gosia Plummer Under the Supervision of: Dr. Keon Cordon M.D. First contact with patient: 16:20 Chief Complaint: ABDOMINAL PAIN Stated Complaint: INCREASING PAIN Nursing Triage Summary: abominal pain on the right side and to the flank into the back. states she has a hernia. was just discharged from hospital with the same thing. PICC line in place for multiple surgies on the left shoulder. Antibioitcs being given for such History of Present Illness The patient is a 71 year old female who presents to the Emergency Room with complaints of worsening abdominal pain for the past 3 weeks. She states her pain is in the right side of her abdomen and radiates into her flank and back. She rates her current discomfort as a 9/10. Movement worsens her pain. She no longer has her gallbladder. She has been unable to sleep because of her discomfort and is very fatigued. The patient has a PICC line in place for IV antibiotics, as she has undergone multiple shoulder surgeries, however she states she is no longer receiving IV antibiotics. She also reports she has a known hernia and was recently discharged from the hospital for similar abdominal pain. 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 A total of 10 systems reviewed and were otherwise negative. 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 (13) loose glenoid (14) Opioid Dependence-Unspec (15) Other Chronic Pain (16) Pure Hypercholesterolem (17) Recurrent falls (18) Rheumatoid arthritis (19) Sinus tachycardia (20) Sleep apnea Surgical Problems: (1) Cholecystectomy (2) Hysterectomy Family History Diabetes mellitus FH: heart disease Hypertension Kidney disease Kidney stones Seizures Stroke Social History Smoking Status: Never Smoker Alcohol Use: none Drug Use: none Marital Status: Housing Status: lives alone Occupation Status: retired Current/Historical Medications Scheduled Amlodipine (Norvasc), 5 MG PO QAM Aspirin (Aspirin Ec), 81 MG PO DAILY Bisacodyl (Cvs Bisacodyl), 5 MG PO DAILY Clonidine Hcl (Catapres), 0.1 MG PO BID Clopidogrel Bisulfate (Clopidogrel), 75 MG PO DAILY Dicyclomine Hcl (Bentyl), 20 MG PO TID Duloxetine Hcl (Cymbalta), 60 MG PO DAILY Famotidine (Famotidine), 1 TAB PO DAILY Ferrous Sulfate (Ferrous Sulfate), 325 MG PO BID Furosemide (Furosemide), 40 MG PO DAILY Gabapentin (Gabapentin), 600 MG PO TID Heparin Sodium (Porcine) Lock (Heparin Lock Flush/Nacl F), 1 DOSE IVF DAILY Insulin Detemir (Levemir Flextouch), 12 UNITS SC QPM Ipratropium-Albuterol (Combivent Respimat), 2 PUFFS INH QID Lisinopril (Lisinopril), 40 MG PO QAM Lorazepam (Lorazepam), 0.5 MG PO TID Magnesium Oxide (Mag-Ox), 400 MG PO TID Melatonin (Melatonin), 10 MG PO HS Metoprolol Tartrate (Lopressor) (Lopressor), 100 MG PO HS Pantoprazole (Protonix), 40 MG PO DAILY Potassium Gluconate (Potassium Gluconate), 297.5 MG PO DAILY Rosuvastatin Calcium (Rosuvastatin Calcium), 20 MG PO HS Sitagliptin-Metformin Hcl (Janumet), 1 TAB PO BID Scheduled PRN Diclofenac Sodium (Topical) (Diclofenac Sodium), 1 APPLN TOP QID PRN for Pain Docusate Sodium (Docusate Sodium), 100 MG PO DAILY PRN for Constipation Ipratropium-Albuterol (Duoneb), 1 TREATMENT NEB Q6H PRN for SOB/Wheezing Polyethylene Glycol 3350 (Miralax), 17 GM PO HS PRN for Constipation Allergies Coded Allergies: Cephalosporins (Verified Allergy, Unknown, RINGING OF EARS,FALLING BALANCE ISSUES, 11/04/16) Prochlorperazine (Verified Allergy, Unknown, STROKE LIKE SYMPTOMS, CAN'T TALK, 11/04/16) Linezolid (Verified Adverse Reaction, Unknown, diarrhea,vomiting, 11/04/16) Morphine (Verified Adverse Reaction, Unknown, NOT EFFECTIVE, 11/04/16) Tramadol (Verified Adverse Reaction, Unknown, UNSTEADY ON FEET, HYPERACTIVITYY, 11/04/16) Physical Exam Vital Signs Date Time Temp Pulse Resp B/P (MAP) Pulse Ox O2 Delivery O2 Flow Rate FiO2 11/04/16 19:38 74 22 123/54 95 11/04/16 19:05 22 123/54 95 Room Air 11/04/16 17:36 74 11/04/16 17:34 75 16 107/56 93 Room Air 11/04/16 15:40 37.0 88 20 120/59 95 Room Air Physical Exam GENERAL: Patient is a healthy-appearing well-nourished HEAD: Normocephalic atraumatic EYES: Ocular movements intact pupils equal and react to light OROPHARYNX mucous membranes are moist no exudates present no erythema or edema present NECK: Supple no nuchal rigidity CHEST: Good equal expansion LUNGS: Clear and equal to auscultation CARDIAC: Normal S1 and S2 ABDOMEN: Soft, tender in RUQ, no guarding BACK: No CVA tenderness EXTREMITIES: No pain upon palpation normal muscle strength in all groups no clubbing cyanosis or edema NEURO: Patient is following commands is answering questions appropriately. Alert and oriented x3 Cranial Nerves 2-12 grossly intact Medical Decision & Procedures ER Provider Diagnostic Interpretation: Radiology results as stated below per my review and radiologist interpretation: BILIARY ULTRASOUND CLINICAL HISTORY: Right upper quadrant abdominal pain COMPARISON STUDY: CT scan dated 10/31/2016 FINDINGS: The gallbladder is surgically absent. There is no intrahepatic biliary ductal dilatation. No focal hepatic masses are visualized. The common bile duct is mildly dilated measuring 1 cm. There is no right-sided hydronephrosis. No pancreatic masses are visualized. There is very slight increased hepatic echogenicity. IMPRESSION: 1. Surgically absent gallbladder 2. Ultrasonographically normal pancreas 3. Mildly dilated common bile duct measuring 1 cm Electronically signed by: Maury Costello M.D. 11/04/2016 7:01 PM Laboratory Results 11/04/16 17:10 Red Blood Count 3.89, Mean Corpuscular Volume 95.4, Mean Corpuscular Hemoglobin 31.1, Mean Corpuscular Hemoglobin Concent 32.6, Mean Platelet Volume 10.2, Neutrophils (%) (Auto) 61.3, Lymphocytes (%) (Auto) 28.8, Monocytes (%) (Auto) 8.3, Eosinophils (%) (Auto) 1.3, Basophils (%) (Auto) 0.2, Neutrophils # (Auto) 5.77, Lymphocytes # (Auto) 2.71, Monocytes # (Auto) 0.78, Eosinophils # (Auto) 0.12, Basophils # (Auto) 0.02 11/04/16 17:10 Test 11/04/16 17:10 White Blood Count 9.41 K/uL (4.8-10.8) Red Blood Count 3.89 M/uL (4.2-5.4) Hemoglobin 12.1 g/dL (12.0-16.0) Hematocrit 37.1 % (37-47) Mean Corpuscular Volume 95.4 fL (80-100) Mean Corpuscular Hemoglobin 31.1 pg (25-34) Mean Corpuscular Hemoglobin Concent 32.6 g/dl (32-36) Platelet Count 171 K/uL (130-400) Mean Platelet Volume 10.2 fL (7.4-10.4) Neutrophils (%) (Auto) 61.3 % Lymphocytes (%) (Auto) 28.8 % Monocytes (%) (Auto) 8.3 % Eosinophils (%) (Auto) 1.3 % Basophils (%) (Auto) 0.2 % Neutrophils # (Auto) 5.77 K/uL (1.4-6.5) Lymphocytes # (Auto) 2.71 K/uL (1.2-3.4) Monocytes # (Auto) 0.78 K/uL (0.11-0.59) Eosinophils # (Auto) 0.12 K/uL (0-0.5) Basophils # (Auto) 0.02 K/uL (0-0.2) RDW Standard Deviation 46.4 fL (36.4-46.3) RDW Coefficient of Variation 13.5 % (11.5-14.5) Immature Granulocyte % (Auto) 0.1 % Immature Granulocyte # (Auto) 0.01 K/uL (0.00-0.02) Anion Gap 11.0 mmol/L (3-11) Est Creatinine Clear Calc Drug Dose 32.3 ml/min Estimated GFR () 32.0 Estimated GFR (Non- 27.6 BUN/Creatinine Ratio 12.2 (10-20) Calcium Level 9.1 mg/dl (8.5-10.1) Total Bilirubin 0.3 mg/dl (0.2-1) Direct Bilirubin 0.1 mg/dl (0-0.2) Aspartate Amino Transf (AST/SGOT) 21 U/L (15-37) Alanine Aminotransferase (ALT/SGPT) 23 U/L (12-78) Alkaline Phosphatase 112 U/L (45-117) Total Protein 7.3 gm/dl (6.4-8.2) Albumin 3.6 gm/dl (3.4-5.0) Lipase 104 U/L (73-393) Labs reviewed by ED physician. Medications Administered Medications (Trade) Dose Ordered Sig/Krystal Route Start Time Stop Time Status Last Admin Dose Admin Sodium Chloride 1,000 ml @ 999 mls/hr Q1H1M STAT IV 11/04/16 17:02 11/04/16 18:02 DC 11/04/16 17:30 999 MLS/HR Diphenhydramine HCl (Benadryl Inj) 50 mg NOW STAT IV 11/04/16 17:02 11/04/16 17:05 DC 11/04/16 17:31 50 MG Ondansetron HCl (Zofran Inj) 4 mg NOW STAT IV 11/04/16 17:02 11/04/16 17:05 DC 11/04/16 17:31 4 MG Ketorolac Tromethamine (Toradol Inj) 30 mg NOW STAT IV 11/04/16 17:02 11/04/16 17:05 DC 11/04/16 17:31 30 MG ED Course 1647: Past medical records reviewed. The patient was evaluated in room B3B. A complete history and physical examination was performed. 1702: Toradol 30 mg IV, Zofran 4 mg IV, Benadryl 50 mg IV, NSS 1000 ml @ 999 mls /hr IV. 9: I reevaluated the patient. She is feeling well and resting comfortably. I discussed her results and discharge instructions and she verbalized complete understanding and agreement. Medical Decision Prior records/ancillary studies reviewed. Triage Nursing notes reviewed. The patient's history was concerning for abdominal pain. Differential diagnosis: Etiologies such as appendicitis, diverticulitis, PUD, biliary pathology, UTI, pancreatitis, obstruction, mesenteric ischemia, aortic pathology, infections, inflammatory bowel disease, renal colic, as well as others were entertained. This is a 71-year-old female who presents emergency department complaining of right upper quadrant abdominal pain. The patient recent he had a CAT scan performed in the emergency department several weeks ago and she is well-known to the service. I will note she is afebrile and has a normal CBC renal profile liver profile and lipase. In the emergency Department patient given normal saline bolus, diphenhydramine, Zofran and Toradol. The patient ate a pizza while in the emergency department therefore I feel she is well enough to be discharged home. She has a normal right upper quadrant ultrasound. Serial abdominal examinations were performed on the patient in the emergency department and at no time the patient exhibited a surgical abdomen or even abdominal tenderness. Medication Reconcilliation Current Medication List: was personally reviewed by me Blood Pressure Screening Patient's blood pressure: Low blood pressure Blood pressure disposition: Referred to PCP Impression Primary Impression: Abdominal pain Scribe Attestation The scribe's documentation has been prepared under my direction and personally reviewed by me in its entirety. I confirm that the note above accurately reflects all work, treatment, procedures, and medical decision making performed by me. Departure Information Dispostion Home / Self-Care Prescriptions Dicyclomine Hcl (BENTYL) 20 Mg Tab 20 MG PO TID for 10 Days, #30 TAB Prov: Keon Cordon MD 11/04/16 Referrals Radha Gonzalze (PCP) Patient Instructions Abdominal Pain - [facility], [facility] Problem Qualifiers Primary Impression: Abdominal pain Abdominal location: right upper quadrant Qualified Codes: R10.11 - Right upper quadrant pain
[2016-11-04] MEDS ORDERED: DiphenhydrAMINE HCL 50 MG/ML VIAL IV STA (17:02)
[2016-11-04] MEDS ORDERED: KETOROLAC TROMETHAMINE 30 MG/ML VIAL IV STA (17:02)
[2016-11-04] MEDS ORDERED: SODIUM CHLORIDE 0.9% 1000ML 1,000 ML IV STA (17:02)
[2016-11-04] MEDS ORDERED: ONDANSETRON INJ 2 MG/ML 2 ML VIAL IV STA (17:02)
[2016-11-04 17:18] LABS: BASO % 0.2 %; BASO ABS # 0.02 K/uL (0-0.2); COMPLETE YES; EOS % 1.3 %; HEMATOCRIT 37.1 % (37-47); IG% 0.1 %; LYMPH % 28.8 %; LYMPH ABS # 2.71 K/uL (1.2-3.4); MEAN CELL VOLUME 95.4 fL (80-100); MEAN CORPUSCULAR HEMOGLOBIN 31.1 pg (25-34); MEAN CORPUSCULAR HGB CONC 32.6 g/dl (32-36); MEAN PLATELET VOLUME 10.2 fL (7.4-10.4); MONO % 8.3 %; NEUT % 61.3 %; PLATELET COUNT 171 K/uL (130-400); RED BLOOD COUNT 3.89 M/uL (4.2-5.4); WHITE BLOOD COUNT 9.41 K/uL (4.8-10.8)
[2016-11-04 17:35] LABS: BUN/CREATININE RATIO 12.2 (10-20); CALCIUM 9.1 mg/dl (8.5-10.1); CREATININE 1.8 mg/dl (0.60-1.20); POTASSIUM 3.7 mmol/L (3.5-5.1)
--- NOTE | 2016-11-04 19:03 | DIAGNOSTIC IMAGING REPORT ---
BILIARY ULTRASOUND CLINICAL HISTORY: Right upper quadrant abdominal pain COMPARISON STUDY: CT scan dated 10/31/2016 FINDINGS: The gallbladder is surgically absent. There is no intrahepatic biliary ductal dilatation. No focal hepatic masses are visualized. The common bile duct is mildly dilated measuring 1 cm. There is no right-sided hydronephrosis. No pancreatic masses are visualized. There is very slight increased hepatic echogenicity. IMPRESSION: 1. Surgically absent gallbladder 2. Ultrasonographically normal pancreas 3. Mildly dilated common bile duct measuring 1 cm Electronically signed by: Maury Costello M.D. 11/04/2016 7:01 PM Dictated Date/Time: 11/04/2016 6:59 PM
[2016-11-04] MEDS ORDERED: DICY20TA35 PO (19:26)
[2016-11-04 19:38] VITALS: BP 123/54; PULSE 74; O2SAT 95
== END 2016-11-04 19:39 | disposition home or self-care (01) ==
LOC: C.EDB 15:34
DX: R10.11 Right upper quadrant pain (principal); J45.909 Unspecified asthma, uncomplicated; E11.9 Type 2 diabetes mellitus without complications; E78.00 Pure hypercholesterolemia, unspecified; I11.0 Hypertensive heart disease with heart failure; I50.9 Heart failure, unspecified; Z91.81 History of falling; Z90.49 Acquired absence of other specified parts of digestive tract; Z90.710 Acquired absence of both cervix and uterus; Z83.3 Family history of diabetes mellitus; Z82.49 Family history of ischemic heart disease and other diseases of the circulatory system; Z84.1 Family history of disorders of kidney and ureter; Z82.0 Family history of epilepsy and other diseases of the nervous system; Z82.3 Family history of stroke; Z79.02 Long term (current) use of antithrombotics/antiplatelets; Z79.82 Long term (current) use of aspirin; Z79.899 Other long term (current) drug therapy

== ENCOUNTER 2017-01-04 02:24 | Emergency (ER) | payer OTHER ==
[~2017-01-04] VITALS: Ht 168.9 cm; Wt 93.9 kg
[~2017-01-04 02:24] MED LIST changes: -SENN-61 PO
[2017-01-04 02:33] VITALS: TEMP 36.6; Ht 168.9 cm; Wt 93.9 kg
[2017-01-04] MEDS ORDERED: CITA40TA4 PO (03:25)
[2017-01-04] MEDS ORDERED: POTA550T4 PO (03:25)
[2017-01-04] MEDS ORDERED: MAGN250T22 PO (03:25)
[2017-01-04] MEDS ORDERED: FURO-85 PO (03:25)
[2017-01-04] MEDS ORDERED: INSU100I23 SC (03:25)
[2017-01-04 03:40] LABS: BASO % 0.1 %; BASO ABS # 0.01 K/uL (0-0.2); COMPLETE YES; EOS % 1.2 %; HEMATOCRIT 43.5 % (37-47); IG% 0.3 %; LYMPH % 28.1 %; LYMPH ABS # 2.67 K/uL (1.2-3.4); MEAN CELL VOLUME 93.8 fL (80-100); MEAN CORPUSCULAR HEMOGLOBIN 31.5 pg (25-34); MEAN CORPUSCULAR HGB CONC 33.6 g/dl (32-36); MEAN PLATELET VOLUME 11.3 fL (7.4-10.4); MONO % 5.5 %; NEUT % 64.8 %; PLATELET COUNT 233 K/uL (130-400); RED BLOOD COUNT 4.64 M/uL (4.2-5.4)
[2017-01-04 03:55] LABS: PROTHROMBIN TIME (PATIENT) 10.7 SECONDS (9.0-12.0)
[2017-01-04 03:57] LABS: ALT/SGPT 23 U/L (12-78); AST/SGOT 19 U/L (15-37); BLOOD UREA NITROGEN 24 mg/dl (7-18); BUN/CREATININE RATIO 14.8 (10-20); CALCIUM 9.4 mg/dl (8.5-10.1); CARBON DIOXIDE 28 mmol/L (21-32); CHLORIDE 96 mmol/L (98-107); CREATININE 1.63 mg/dl (0.60-1.20); GLUCOSE 303 mg/dl (70-99); POTASSIUM 4.6 mmol/L (3.5-5.1); SODIUM 131 mmol/L (136-145)
[2017-01-04] MEDS ORDERED: SODIUM CHLORIDE 0.9% 1000ML 1,000 ML IV STA (03:59)
[2017-01-04 04:00] LABS: ALB/GLOB RATIO 0.9 (0.9-2)
[2017-01-04 04:07] LABS: ALKALINE PHOSPHATASE 156 U/L (45-117); BETA-HYDROXYBUTYRATE 1.79 mg/dL (0.2-2.81)
[2017-01-04] MEDS ORDERED: HYDROCODONE/ACETAMOPHEN 5/325MG TAB PO STA (07:25)
--- NOTE | 2017-01-04 07:45 | EMERGENCY ROOM VISIT NOTE ---
History Report prepared by [place]: Chana Siddiqui Under the Supervision of: Dr. Angely Galloway D.O. First contact with patient: 02:57 Chief Complaint: HEAD PAIN Stated Complaint: PAIN IN BACK OF HEAD,HEADACHE History of Present Illness The patient is a 71 year old female who presents to the Emergency Room with complaints of persistent head pain starting 4 days ago. At 0100 4 days ago, the patient got up from bed to go to the bathroom bc she felt the urge to have a BM. She had some loose stool then went back to bed. She had to go to the bathroom again and was walking out of her room when she blacked out and fell. When she got up, she had a ping pong sized bump on the back of her head. She hit the door hinge on the way down. She felt she was started to pass out and felt that she needed to grab onto something, but was unable to. She had diarrhea after falling. She was able to make it to the bathroom after getting up. She has been having headaches, lightheadedness, and ear aches since the fall. She scraped her knee and elbow in the fall. She has some neck pain. She notes that she slept through most of the 2 following days. She notes that her sugars have been running high in the 300s since her medication was changed a few weeks ago. She has a history of a head bleed after falling previously. She has a history of blood clots, low magnesium, and left shoulder surgery. She lives alone. She is on blood thinners. Source of History: patient Onset: 4 days ago Position: head Quality: other (injury pain) Timing: other (persistent) Associated Symptoms: + LOC, + headache, + neck pain Note: Pt reports lightheadedness, ear aches, knee pain, elbow pain. Review of Systems See HPI for pertinent positives & negatives. A total of 10 systems reviewed and were otherwise negative. 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 (13) loose glenoid (14) Opioid Dependence-Unspec (15) Other Chronic Pain (16) Pure Hypercholesterolem (17) Recurrent falls (18) Rheumatoid arthritis (19) Sinus tachycardia (20) Sleep apnea Surgical Problems: (1) Cholecystectomy (2) Hysterectomy Family History Diabetes mellitus FH: heart disease Hypertension Kidney disease Kidney stones Seizures Stroke Social History Smoking Status: Never Smoker Alcohol Use: none Drug Use: none Marital Status: Housing Status: lives alone Occupation Status: retired Current/Historical Medications Scheduled Amlodipine (Norvasc), 5 MG PO QAM Aspirin (Aspirin Ec), 81 MG PO DAILY Citalopram (Citalopram Hydrobromide), 40 MG PO DAILY Clonidine Hcl (Catapres), 0.1 MG PO BID Clopidogrel Bisulfate (Clopidogrel), 75 MG PO DAILY Duloxetine Hcl (Cymbalta), 60 MG PO DAILY Ferrous Sulfate (Ferrous Sulfate), 325 MG PO BID Furosemide (Lasix), 20 MG PO QAM Gabapentin (Gabapentin), 600 MG PO TID Insulin Glargine (Basaglar Kwikpen), 15 UNITS SC QPM Ipratropium-Albuterol (Combivent Respimat), 1 PUFFS INH QID Lisinopril (Lisinopril), 40 MG PO QAM Magnesium Oxide (Magnesium), 250 MG PO DAILY Melatonin (Melatonin), 10 MG PO HS Metoprolol Tartrate (Lopressor) (Lopressor), 100 MG PO HS Pantoprazole (Protonix), 40 MG PO DAILY Potassium Gluconate (Potassium Gluconate), 275 MG PO DAILY Rosuvastatin Calcium (Rosuvastatin Calcium), 20 MG PO HS Sitagliptin-Metformin Hcl (Janumet), 1 TAB PO QDD Scheduled PRN Diclofenac Sodium (Topical) (Diclofenac Sodium), 1 APPLN TOP QID PRN for Pain Docusate Sodium (Docusate Sodium), 100 MG PO DAILY PRN for Constipation Ipratropium-Albuterol (Duoneb), 1 TREATMENT NEB Q6H PRN for SOB/Wheezing Polyethylene Glycol 3350 (Miralax), 17 GM PO HS PRN for Constipation Allergies Coded Allergies: Prochlorperazine (Verified Allergy, Severe, STROKE LIKE SYMPTOMS, CAN'T TALK, 01/04/17) Cephalosporins (Verified Allergy, Intermediate, RINGING OF EARS,FALLING BALANCE ISSUES, 01/04/17) Tramadol (Verified Adverse Reaction, Severe, UNSTEADY ON FEET, HYPERACTIVITYY, 01/04/17) Linezolid (Verified Adverse Reaction, Intermediate, diarrhea,vomiting, ) Morphine (Verified Adverse Reaction, Unknown, NOT EFFECTIVE, 01/04/17) Physical Exam Vital Signs Date Time Temp Pulse Resp B/P (MAP) Pulse Ox O2 Delivery O2 Flow Rate FiO2 01/04/17 09:19 68 20 160/88 95 01/04/17 08:28 63 20 142/78 99 Room Air 01/04/17 07:16 70 18 141/71 98 01/04/17 06:28 72 19 118/62 97 Room Air 01/04/17 05:07 67 18 112/84 96 Room Air 01/04/17 03:52 87 19 90/42 95 Room Air 01/04/17 03:29 83 19 100/46 97 Room Air 85 93/62 87 90/42 01/04/17 02:33 36.6 84 20 115/72 97 Room Air Physical Exam GENERAL: alert, well appearing, well nourished, no distress, non-toxic HEAD: Small abrasion and contusion noted in the superior occipital region. EYE EXAM: normal conjunctiva, PERRL and EOM's grossly intact OROPHARYNX: no exudate, no erythema, lips, buccal mucosa, and tongue normal and mucous membranes are moist NECK: supple, no nuchal rigidity, no adenopathy, no midline tenderness or step off, bilateral paraspinal tenderness. LUNGS: Clear to auscultation. Normal chest wall mechanics HEART: no murmurs, S1 normal and S2 normal ABDOMEN: abdomen soft, non-tender, normo-active bowel sounds, no masses, no rebound or guarding. BACK: Back is symmetrical on inspection and there is no deformity, no midline tenderness, no CVA tenderness. SKIN: no rashes and no bruising UPPER EXTREMITIES: Small abrasion near the olecranon process of the right elbow. LUE in a sling. Obvious deformity to the left shoulder. Well healed scar consistent with prior surgery. LOWER EXTREMITIES: No pitting edema. Small abrasion to the left knee. NEURO EXAM: Limited by LUE immobilization. Patient moving all extremities. Normal sensation. Normal sensorium, cranial nerves II-XII grossly intact, normal speech. Medical Decision & Procedures ER Provider Diagnostic Interpretation: X-ray: I interpreted the following studies. Chest: A two view study of the chest was reviewed and was negative for cardiomegaly, effusion, focal infiltrate , wide mediastinum. Chronic abnormal appearance to the left proximal humerus consistent with prior surgeries. Radiology results have been interpreted by the [facility] radiologist and reviewed by me. CT Head: Scalp contusion near the vertex. No acute brain or skull injury. CT C spine: No fracture. Laboratory Results 01/04/17 03:30 Red Blood Count 4.64, Mean Corpuscular Volume 93.8, Mean Corpuscular Hemoglobin 31.5, Mean Corpuscular Hemoglobin Concent 33.6, Mean Platelet Volume 11.3, Neutrophils (%) (Auto) 64.8, Lymphocytes (%) (Auto) 28.1, Monocytes (%) (Auto) 5.5, Eosinophils (%) (Auto) 1.2, Basophils (%) (Auto) 0.1, Neutrophils # (Auto) 6.16, Lymphocytes # (Auto) 2.67, Monocytes # (Auto) 0.52, Eosinophils # (Auto) 0.11, Basophils # (Auto) 0.01 01/04/17 03:30 Test 01/04/17 03:30 01/04/17 07:25 White Blood Count 9.50 K/uL (4.8-10.8) Red Blood Count 4.64 M/uL (4.2-5.4) Hemoglobin 14.6 g/dL (12.0-16.0) Hematocrit 43.5 % (37-47) Mean Corpuscular Volume 93.8 fL (80-100) Mean Corpuscular Hemoglobin 31.5 pg (25-34) Mean Corpuscular Hemoglobin Concent 33.6 g/dl (32-36) Platelet Count 233 K/uL (130-400) Mean Platelet Volume 11.3 fL (7.4-10.4) Neutrophils (%) (Auto) 64.8 % Lymphocytes (%) (Auto) 28.1 % Monocytes (%) (Auto) 5.5 % Eosinophils (%) (Auto) 1.2 % Basophils (%) (Auto) 0.1 % Neutrophils # (Auto) 6.16 K/uL (1.4-6.5) Lymphocytes # (Auto) 2.67 K/uL (1.2-3.4) Monocytes # (Auto) 0.52 K/uL (0.11-0.59) Eosinophils # (Auto) 0.11 K/uL (0-0.5) Basophils # (Auto) 0.01 K/uL (0-0.2) RDW Standard Deviation 44.0 fL (36.4-46.3) RDW Coefficient of Variation 12.9 % (11.5-14.5) Immature Granulocyte % (Auto) 0.3 % Immature Granulocyte # (Auto) 0.03 K/uL (0.00-0.02) Prothrombin Time 10.7 SECONDS (9.0-12.0) Prothromb Time International Ratio 1.0 (0.9-1.1) Anion Gap 7.0 mmol/L (3-11) Est Creatinine Clear Calc Drug Dose 36.4 ml/min Estimated GFR () 36.1 Estimated GFR (Non- 31.2 BUN/Creatinine Ratio 14.8 (10-20) Calcium Level 9.4 mg/dl (8.5-10.1) Magnesium Level 2.0 mg/dl (1.8-2.4) Total Bilirubin 0.3 mg/dl (0.2-1) Aspartate Amino Transf (AST/SGOT) 19 U/L (15-37) Alanine Aminotransferase (ALT/SGPT) 23 U/L (12-78) Alkaline Phosphatase 156 U/L (45-117) Troponin I < 0.015 ng/ml (0-0.045) Total Protein 9.0 gm/dl (6.4-8.2) Albumin 4.2 gm/dl (3.4-5.0) Globulin 4.8 gm/dl (2.5-4.0) Albumin/Globulin Ratio 0.9 (0.9-2) Beta-Hydroxybutyric Acid 1.79 mg/dL (0.2-2.81) Urine Color YELLOW Urine Appearance CLEAR (CLEAR) Urine pH 5.5 (4.5-7.5) Urine Specific [place] 1.012 (1.000-1.030) Urine Protein NEG (NEG) Urine Glucose (UA) NEG (NEG) Urine Ketones NEG (NEG) Urine Occult Blood NEG (NEG) Urine Nitrite NEG (NEG) Urine Bilirubin NEG (NEG) Urine Urobilinogen NEG (NEG) Urine Leukocyte Esterase NEG (NEG) Urine WBC (Auto) 1-5 /hpf (0-5) Urine RBC (Auto) 0-4 /hpf (0-4) Urine Hyaline Casts (Auto) 0 /lpf (0-5) Urine Epithelial Cells (Auto) 0-5 /lpf (0-5) Urine Bacteria (Auto) NEG (NEG) Medications Administered Medications (Trade) Dose Ordered Sig/Krystal Route Start Time Stop Time Status Last Admin Dose Admin Sodium Chloride 1,000 ml @ 999 mls/hr Q1H1M STAT IV 01/04/17 03:59 01/04/17 04:59 DC 01/04/17 03:59 999 MLS/HR Acetaminophen/ Hydrocodone Bitart (Jay 5/325 Tab) 1 tab NOW STAT PO 01/04/17 07:25 01/04/17 07:27 DC 01/04/17 08:16 1 TAB ECG Indication: syncope Rate (beats per minute): 74 Rhythm: sinus rhythm Findings: no acute ischemic change, no ectopy, other (normal axis, normal intervals) ED Course 0301: The patient was evaluated in room B11B. A complete history and physical exam was performed. 0359: NSS 1000 ml @ 999 mls/hr IV. 0714: I reevaluated the patient. I updated her on the results. She is asking for pain medications. We are still waiting on a urine sample. 0725: Jay 5/325 Tab 1 tab PO. Medical Decision Differential diagnosis includes etiologies such as vasovagal event, infection, hypoglycemia, electrolyte abnormalities, cardiac sources, intracerebral event, toxicologic, neurologic, as well as others were entertained. Patient with multiple chronic comorbidities. Well-appearing here despite complaints of stable vital signs. Patient's description of syncope several nights ago most likely vasovagal given urge to have a bowel movement at that time. Patient with no persistent diarrhea. Patient was orthostatic here however this was improved following IV and oral rehydration. Patient with chronically elevated glucose readings on her glucometer, she states this was due to recent change in her medications and she is scheduled to follow up with her family doctor. Patient did have elevated glucose reading here. No evidence of DKA or HHN K. Patient with mild chronic renal insufficiency. Mild hyponatremia noted. No other evidence of acute infectious etiology. No evidence of acute trauma. I have a low suspicion for any additional occult traumatic injury. Patient with no other focal neuro deficits. Patient with chronic difficulty ambulating due to limited use of left upper extremity. Patient ambulatory here without complaints, no recurrent feelings of near syncope or lightheadedness. No recurrence of diarrhea since that evening. Discussed with patient hydration, continued checks of her blood sugar, use of her routine medications, symptoms to watch and return for, follow-up with her family doctor to recheck her condition as well as discuss her medication regimen , she verbalized understanding of this was agreeable with plan. Doubt ACS, dysrhythmia, CVA, dissection, occult intracerebral hemorrhage, DKA, renal failure, aaa, mesenteric ischemia/ischemic colitis, perf, sbo, uti, septic arthritis. Head Trauma GCS Score: 15 Medication Reconcilliation Current Medication List: was personally reviewed by me Blood Pressure Screening Patient's blood pressure: Low blood pressure Impression Primary Impression: Syncope Additional Impressions: CHI (closed head injury) Contusion Abrasion acute exacerbation of chronic pain CKD (chronic kidney disease) Chronic back pain Hyperglycemia Scribe Attestation The scribe's documentation has been prepared under my direction and personally reviewed by me in its entirety. I confirm that the note above accurately reflects all work, treatment, procedures, and medical decision making performed by me. Departure Information Dispostion Home / Self-Care Referrals Radha Gonzalez (PCP) Patient Instructions My [facility] Additional Instructions Please continue regular medications as prescribed. Please continue checking her blood sugar daily, and follow up with her family doctor given your higher blood sugar readings since her medications were changed. Please make sure to stay well-hydrated. Please continue to monitor for any changing symptoms. If you develop worsening headaches, vision changes, chest pain, trouble breathing, vomiting, dizziness, or you've any other new concerns, please return the emergency room. Problem Qualifiers Primary Impression: Syncope Syncope type: unspecified Qualified Codes: R55 - Syncope and collapse Additional Impressions: CHI (closed head injury) Encounter type: initial encounter Qualified Codes: S09.90XA - Unspecified injury of head, initial encounter Contusion Encounter type: initial encounter Contusion area: head Contusion of head detail: scalp Qualified Codes: S00.03XA - Contusion of scalp, initial encounter CKD (chronic kidney disease) Chronic kidney disease stage: unspecified stage Qualified Codes: N18.9 - Chronic kidney disease, unspecified
--- NOTE | 2017-01-04 08:40 | DIAGNOSTIC IMAGING REPORT ---
CHEST 1 VW FRONT-NOT PORTABLE CLINICAL HISTORY: trauma, syncope COMPARISON STUDY: Chest radiograph October 31, 2016. FINDINGS: Erosion of the left humeral head is unchanged. There is no pneumothorax or pleural effusion. Pulmonary vascularity is normal. Cardiomediastinal silhouette is normal. IMPRESSION: No acute cardiopulmonary findings. Electronically signed by: Jerome Lowry M.D. 01/04/2017 8:39 AM Dictated Date/Time: 01/04/2017 8:38 AM
[2017-01-04 08:43] LABS: URINE APPEARANCE CLEAR (CLEAR); URINE BILIRUBIN NEG (NEG); URINE COLOR YELLOW; URINE EPITHELIAL CELL AUTO 0-5 /lpf (0-5); URINE NITRITE NEG (NEG); URINE PH 5.5 (4.5-7.5); URINE SPECIFIC GRAVITY 1.012 (1.000-1.030); UROBILINOGEN NEG (NEG); ZZURINE CULT IF INDIC CATH NO
[2017-01-04 08:49] LABS: MANUAL MICROSCOPIC REQUIRED? NO; REVIEW REQ? NO
[2017-01-04 09:19] VITALS: BP 160/88; PULSE 68; O2SAT 95
--- NOTE | 2017-01-04 09:55 | DIAGNOSTIC IMAGING REPORT ---
CT OF THE HEAD WITHOUT CONTRAST CLINICAL HISTORY: Syncope with head injury. COMPARISON STUDY: Head CT the T November 07, 2015. CT DOSE: 1086.94 mGy.cm TECHNIQUE: Helical axial images of the head were obtained without IV contrast. Automated exposure control was utilized for the study. A dose lowering technique was utilized adhering to the principles of ALARA. FINDINGS: No acute intracranial hemorrhage, midline shift or mass effect is present. Ventricular system is normal. Basilar cisterns are patent. There are no extra-axial collections. Mild white matter hypodensity suggests small vessel disease. There is ossification/calcification along the falx. A small posterior scalp contusion is noted with no calvarial fracture. IMPRESSION: 1. No acute intracranial findings. 2. Small occipital scalp contusion. No calvarial fracture. Electronically signed by: Jerome Lowry M.D. 01/04/2017 9:54 AM Dictated Date/Time: 01/04/2017 9:52 AM
--- NOTE | 2017-01-04 09:59 | DIAGNOSTIC IMAGING REPORT ---
CT OF THE CERVICAL SPINE WITHOUT CONTRAST CLINICAL HISTORY: Neck pain following fall. COMPARISON STUDY: Cervical spine CT November 07, 2015. TECHNIQUE: Helical axial images of the cervical spine were obtained without IV contrast. Sagittal and coronal reconstructions were viewed. A dose lowering technique was utilized adhering to the principles of ALARA. FINDINGS: Craniocervical junction is intact. No acute cervical spine fracture is identified. There is moderate to severe multilevel degenerative disc disease and facet arthrosis of the cervical spine. There is no prevertebral edema. Incidental note is made of bilateral cervical ribs. IMPRESSION: No acute cervical spine fracture or subluxation. Electronically signed by: Jerome Lowry M.D. 01/04/2017 9:58 AM Dictated Date/Time: 01/04/2017 9:54 AM
== END 2017-01-04 09:21 | disposition home or self-care (01) ==
LOC: C.EDB 02:26
DX: R55 Syncope and collapse (principal); S00.03XA Contusion of scalp, initial encounter; G89.29 Other chronic pain; N18.9 Chronic kidney disease, unspecified; M54.9 Dorsalgia, unspecified; E11.65 Type 2 diabetes mellitus with hyperglycemia; W01.198A Fall on same level from slipping, tripping and stumbling with subsequent striking against other object, initial encounter; Y93.01 Activity, walking, marching and hiking; Y99.8 Other external cause status; J45.909 Unspecified asthma, uncomplicated; R19.7 Diarrhea, unspecified; I13.0 Hypertensive heart and chronic kidney disease with heart failure and stage 1 through stage 4 chronic kidney disease, or unspecified chronic kidney disease; E78.00 Pure hypercholesterolemia, unspecified; Z91.81 History of falling; Z90.49 Acquired absence of other specified parts of digestive tract; Z90.710 Acquired absence of both cervix and uterus; Z83.3 Family history of diabetes mellitus; Z82.49 Family history of ischemic heart disease and other diseases of the circulatory system; Z84.1 Family history of disorders of kidney and ureter; Z82.3 Family history of stroke; Z82.0 Family history of epilepsy and other diseases of the nervous system; Z79.02 Long term (current) use of antithrombotics/antiplatelets; Z79.4 Long term (current) use of insulin; Z79.82 Long term (current) use of aspirin; Z79.899 Other long term (current) drug therapy

== ENCOUNTER 2017-04-12 17:55 | Emergency (ER) | payer OTHER ==
[~2017-04-12] VITALS: Ht 168.9 cm; Wt 93.9 kg
[~2017-04-12 17:55] MED LIST changes: -ASPI81TA28 PO; -ATV5X PO; -BISA-49 PO; +CITA40TA4 PO; -CTP1CL PO; -FAMO1TAB47 PO; -FERR325T5 PO; +FURO-85 PO; +GABA-1219 PO; -GABA1CAP4 PO; +INSU100I23 SC; -INSU3INJ3 SC; -LSN40 PO; -LSX40 PO; +MAGN250T22 PO; -MAGN400T6 PO; -METO100T14 PO; -PLV75 PO; -POTA1TAB PO; +POTA550T4 PO; -ROSU20TA22 PO; -[UNRECOGNIZED DRUG - CODE] IVF
[2017-04-12 18:01] VITALS: TEMP 36.6; Ht 168.9 cm; Wt 93.9 kg
[2017-04-12 18:44] LABS: BASO % 0.2 %; BASO ABS # 0.02 K/uL (0-0.2); EOS ABS # 0.08 K/uL (0-0.5); HEMATOCRIT 40.5 % (37-47); IG# 0.02 K/uL (0.00-0.02); LYMPH % 23.1 %; LYMPH ABS # 1.93 K/uL (1.2-3.4); MEAN CELL VOLUME 91.2 fL (80-100); MEAN CORPUSCULAR HEMOGLOBIN 31.5 pg (25-34); MEAN CORPUSCULAR HGB CONC 34.6 g/dl (32-36); MEAN PLATELET VOLUME 11.1 fL (7.4-10.4); MONO ABS # 0.42 K/uL (0.11-0.59); NEUT % 70.5 %; NEUT ABS # 5.87 K/uL (1.4-6.5); PLATELET COUNT 178 K/uL (130-400); RED CELL DISTRIBUTION WIDTH CV 12.6 % (11.5-14.5); RED CELL DISTRIBUTION WIDTH SD 41.9 fL (36.4-46.3); WHITE BLOOD COUNT 8.34 K/uL (4.8-10.8)
--- NOTE | 2017-04-12 18:51 | DIAGNOSTIC IMAGING REPORT ---
CHEST ONE VIEW PORTABLE CLINICAL HISTORY: 72 years-old Female presenting with ABDOMINAL PAIN/GI. TECHNIQUE: Portable upright AP view of the chest was obtained. COMPARISON: 01/04/2017. FINDINGS: Atherosclerosis of the aortic arch. Cardiac silhouette normal in size. Elevation of the right hemidiaphragm, unchanged. Chronic deformity of the left humeral head with destruction and dislocation. Osseous structures normal. Upper abdomen normal. IMPRESSION: 1. No acute cardiopulmonary disease. Electronically signed by: Keegan Packer M.D. 04/12/2017 6:49 PM Dictated Date/Time: 04/12/2017 6:48 PM
[2017-04-12 18:58] LABS: PTT PATIENT 27.3 SECONDS (21.0-31.0)
--- NOTE | 2017-04-12 18:59 | DIAGNOSTIC IMAGING REPORT ---
ABD/PELVIS NO IV OR ORAL CONT CLINICAL HISTORY: 72 years-old Female presenting with ABDOMINAL PAIN/GI, mid abdominal pain. TECHNIQUE: Multidetector CT of the abdomen and pelvis was performed without the use of intravenous contrast. IV contrast: None. A dose lowering technique was used consistent with the principles of ALARA (as low as reasonably achievable). COMPARISON: 10/31/2016. CT DOSE (mGy.cm): The estimated cumulative dose is 1280.17 mGy.cm. FINDINGS: [employer]ier topogram: Total right hip arthroplasty. Lung bases: Minimal basilar opacities, likely atelectasis. Few punctate nodules noted the lung bases. Multichamber enlargement of the heart. Coronary artery calcification. Mitral annular calcification. No pericardial or pleural effusion. Liver: Macronodular contour of the liver. Density consistent with hepatic steatosis. Biliary: No gross biliary ductal dilatation allowing for noncontrast technique. Gallbladder surgically absent. Pancreas: Moderate parenchymal atrophy. Spleen: Normal noncontrast appearance. Adrenal glands: Normal noncontrast appearance. Kidneys and ureters: Normal noncontrast appearance. No nephrolithiasis. No hydronephrosis. Normal ureters. Bladder: Incompletely evaluated secondary to underdistention. Pelvic organs: Uterus surgically absent. No adnexal masses. Bowel: Limited diverticulosis of the sigmoid colon. Moderate stool burden throughout normal caliber colon. No bowel obstruction. Peritoneal cavity: No free fluid or intraperitoneal gas. Lymph nodes: No gross lymphadenopathy allowing for noncontrast technique. Vasculature: Atherosclerosis of the normal caliber abdominal aorta. Infrarenal IVC filter in place. Abdominal wall: Small fat-containing umbilical hernia. Musculoskeletal: Total right hip arthroplasty with extensive streak artifact limiting evaluation of the right hemipelvis. Degenerative changes of the spine. IMPRESSION: 1. No acute intra-abdominal pathology. 2. Diverticulosis. 3. Fat-containing of focal hernia. 4. Hepatic steatosis with macronodular contour of the liver. 5. Cardiomegaly. Electronically signed by: Keegan Packer M.D. 04/12/2017 6:58 PM Dictated Date/Time: 04/12/2017 6:52 PM
[2017-04-12 19:10] LABS: ALBUMIN 3.9 gm/dl (3.4-5.0); CALCIUM 9.4 mg/dl (8.5-10.1); CREATININE 1.17 mg/dl (0.60-1.20); TOTAL PROTEIN 8.4 gm/dl (6.4-8.2)
[2017-04-12] MEDS ORDERED: FAMO20TA11 PO (19:38)
[2017-04-12] MEDS ORDERED: MAGN400T6 PO (19:38)
[2017-04-12] MEDS ORDERED: HYDROmorphone INJ 1 MG/ML SYR IV STA (19:59)
[2017-04-12] MEDS ORDERED: NovoLIN-R INSULIN PER UNIT CHARGE SC STA (19:59)
--- NOTE | 2017-04-12 20:07 | EMERGENCY ROOM VISIT NOTE ---
History Report prepared by [place]: Paul Gould Under the Supervision of: Dr. Keon Harrington D.O. First contact with patient: 18:05 Chief Complaint: PAIN (GENERALIZED) Stated Complaint: PAIN THROUGH LT SHOULDER, STOMACH AND FEET History of Present Illness The patient is a 72 year old female who presents to the Emergency Room with complaints of worsening abdominal pain that began 4 months ago. She has left shoulder pain that also began 4 months ago after having shoulder surgeries by Dr. Castillo (orthopedic surgery) who told her that her shoulder implant has become loose. She states a hernia was previously found in her abdomen. She states she has had a regular bowel movement but has had to increase her laxative usage. She states she has been recently fatigued, prompting this visit. Source of History: patient Onset: 4 months ago Position: abdomen Symptom Intensity: mild Quality: ache Timing: constant Associated Symptoms: + abdominal pain, + fatigue (Patient states she has had recent fatigue.) Note: Patient complains of left shoulder pain. Review of Systems See HPI for pertinent positives & negatives. A total of 10 systems reviewed and were otherwise negative. 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 (13) loose glenoid (14) Opioid Dependence-Unspec (15) Other Chronic Pain (16) Pure Hypercholesterolem (17) Recurrent falls (18) Rheumatoid arthritis (19) Sinus tachycardia (20) Sleep apnea Surgical Problems: (1) Cholecystectomy (2) Hx of appendectomy (3) Hysterectomy Family History Diabetes mellitus FH: heart disease Hypertension Kidney disease Kidney stones Seizures Stroke Social History Smoking Status: Never Smoker Alcohol Use: none Drug Use: none Marital Status: Housing Status: lives alone Occupation Status: retired Current/Historical Medications Scheduled Amlodipine (Norvasc), 5 MG PO QAM Aspirin (Aspirin Ec), 81 MG PO DAILY Clonidine Hcl (Catapres), 0.1 MG PO BID Clopidogrel Bisulfate (Clopidogrel), 75 MG PO DAILY Duloxetine Hcl (Cymbalta), 60 MG PO DAILY Famotidine (Pepcid), 20 MG PO DAILY Ferrous Sulfate (Ferrous Sulfate), 325 MG PO BID Furosemide (Lasix), 40 MG PO QAM Gabapentin (Gabapentin), 600 MG PO TID Insulin Glargine (Basaglar Kwikpen), 15 UNITS SC QPM Lisinopril (Lisinopril), 40 MG PO QAM Magnesium Oxide (Mag-Ox), 400 MG PO DAILY Melatonin (Melatonin), 10 MG PO HS Metoprolol Tartrate (Lopressor) (Lopressor), 100 MG PO HS Pantoprazole (Protonix), 40 MG PO DAILY Potassium Gluconate (Potassium Gluconate), 275 MG PO DAILY Rosuvastatin Calcium (Rosuvastatin Calcium), 20 MG PO HS Sitagliptin-Metformin Hcl (Janumet), 1 TAB PO DAILY Scheduled PRN Docusate Sodium (Docusate Sodium), 100 MG PO DAILY PRN for Constipation Ipratropium-Albuterol (Combivent Respimat), 1 PUFFS INH QID PRN for SOB/Wheezing Ipratropium-Albuterol (Duoneb), 1 TREATMENT NEB Q6H PRN for SOB/Wheezing Polyethylene Glycol 3350 (Miralax), 17 GM PO HS PRN for Constipation Allergies Coded Allergies: Prochlorperazine (Verified Allergy, Severe, STROKE LIKE SYMPTOMS, CAN'T TALK, 01/04/17) Cephalosporins (Verified Allergy, Intermediate, RINGING OF EARS,FALLING BALANCE ISSUES, 01/04/17) Tramadol (Verified Adverse Reaction, Severe, UNSTEADY ON FEET, HYPERACTIVITYY, 01/04/17) Linezolid (Verified Adverse Reaction, Intermediate, diarrhea,vomiting, ) Morphine (Verified Adverse Reaction, Unknown, NOT EFFECTIVE, 01/04/17) Physical Exam Vital Signs Date Time Temp Pulse Resp B/P (MAP) Pulse Ox O2 Delivery O2 Flow Rate FiO2 04/12/17 18:01 36.6 86 18 148/101 96 Room Air Physical Exam CONSTITUTIONAL/VITAL SIGNS: Reviewed / noted above. GENERAL: Non-toxic in appearance. INTEGUMENTARY: Warm, dry, and [place]. HEAD: Normocephalic. EYES: without scleral icterus or trauma. ENT/OROPHARYNX: clear and moist. LYMPHADENOPATHY/NECK: Is supple without lymphadenopathy or meningismus. RESPIRATORY: Lungs clear and equal. CARDIOVASCULAR: Regular rate and rhythm. GI/ABDOMEN: Mild tenderness of LLQ. Soft. No organomegaly or pulsatile mass. No rebound or guarding. Normal bowel sounds. EXTREMITIES: Warm and well perfused. BACK: No CVA tenderness. NEUROLOGICAL: Intact without focal deficits. PSYCHIATRIC: normal affect. MUSCULOSKELETAL: Normally developed with good muscle tone. Medical Decision & Procedures ER Provider Diagnostic Interpretation: Radiology results as stated below per my review and radiologist interpretation: CHEST ONE VIEW PORTABLE CLINICAL HISTORY: 72 years-old Female presenting with ABDOMINAL PAIN/GI. TECHNIQUE: Portable upright AP view of the chest was obtained. COMPARISON: 01/04/2017. FINDINGS: Atherosclerosis of the aortic arch. Cardiac silhouette normal in size. Elevation of the right hemidiaphragm, unchanged. Chronic deformity of the left humeral head with destruction and dislocation. Osseous structures normal. Upper abdomen normal. IMPRESSION: 1. No acute cardiopulmonary disease. Electronically signed by: Keegan Packer M.D. 04/12/2017 6:49 PM Dictated Date/Time: 04/12/2017 6:48 PM ABD/PELVIS NO IV OR ORAL CONT CLINICAL HISTORY: 72 years-old Female presenting with ABDOMINAL PAIN/GI, mid abdominal pain. TECHNIQUE: Multidetector CT of the abdomen and pelvis was performed without the use of intravenous contrast. IV contrast: None. A dose lowering technique was used consistent with the principles of ALARA (as low as reasonably achievable). COMPARISON: 10/31/2016. CT DOSE (mGy.cm): The estimated cumulative dose is 1280.17 mGy.cm. FINDINGS: [employer] topogram: Total right hip arthroplasty. Lung bases: Minimal basilar opacities, likely atelectasis. Few punctate nodules noted the lung bases. Multichamber enlargement of the heart. Coronary artery calcification. Mitral annular calcification. No pericardial or pleural effusion. Liver: Macronodular contour of the liver. Density consistent with hepatic steatosis. Biliary: No gross biliary ductal dilatation allowing for noncontrast technique. Gallbladder surgically absent. Pancreas: Moderate parenchymal atrophy. Spleen: Normal noncontrast appearance. Adrenal glands: Normal noncontrast appearance. Kidneys and ureters: Normal noncontrast appearance. No nephrolithiasis. No hydronephrosis. Normal ureters. Bladder: Incompletely evaluated secondary to underdistention. Pelvic organs: Uterus surgically absent. No adnexal masses. Bowel: Limited diverticulosis of the sigmoid colon. Moderate stool burden throughout normal caliber colon. No bowel obstruction. Peritoneal cavity: No free fluid or intraperitoneal gas. Lymph nodes: No gross lymphadenopathy allowing for noncontrast technique. Vasculature: Atherosclerosis of the normal caliber abdominal aorta. Infrarenal IVC filter in place. Abdominal wall: Small fat-containing umbilical hernia. Musculoskeletal: Total right hip arthroplasty with extensive streak artifact limiting evaluation of the right hemipelvis. Degenerative changes of the spine. IMPRESSION: 1. No acute intra-abdominal pathology. 2. Diverticulosis. 3. Fat-containing of focal hernia. 4. Hepatic steatosis with macronodular contour of the liver. 5. Cardiomegaly. Electronically signed by: Keegan Packer M.D. 04/12/2017 6:58 PM Dictated Date/Time: 04/12/2017 6:52 PM Laboratory Results 04/12/17 18:35 Red Blood Count 4.44, Mean Corpuscular Volume 91.2, Mean Corpuscular Hemoglobin 31.5, Mean Corpuscular Hemoglobin Concent 34.6, Mean Platelet Volume 11.1, Neutrophils (%) (Auto) 70.5, Lymphocytes (%) (Auto) 23.1, Monocytes (%) (Auto) 5.0, Eosinophils (%) (Auto) 1.0, Basophils (%) (Auto) 0.2, Neutrophils # (Auto) 5.87, Lymphocytes # (Auto) 1.93, Monocytes # (Auto) 0.42, Eosinophils # (Auto) 0.08, Basophils # (Auto) 0.02 04/12/17 18:35 Test 04/12/17 18:35 White Blood Count 8.34 K/uL (4.8-10.8) Red Blood Count 4.44 M/uL (4.2-5.4) Hemoglobin 14.0 g/dL (12.0-16.0) Hematocrit 40.5 % (37-47) Mean Corpuscular Volume 91.2 fL (80-100) Mean Corpuscular Hemoglobin 31.5 pg (25-34) Mean Corpuscular Hemoglobin Concent 34.6 g/dl (32-36) Platelet Count 178 K/uL (130-400) Mean Platelet Volume 11.1 fL (7.4-10.4) Neutrophils (%) (Auto) 70.5 % Lymphocytes (%) (Auto) 23.1 % Monocytes (%) (Auto) 5.0 % Eosinophils (%) (Auto) 1.0 % Basophils (%) (Auto) 0.2 % Neutrophils # (Auto) 5.87 K/uL (1.4-6.5) Lymphocytes # (Auto) 1.93 K/uL (1.2-3.4) Monocytes # (Auto) 0.42 K/uL (0.11-0.59) Eosinophils # (Auto) 0.08 K/uL (0-0.5) Basophils # (Auto) 0.02 K/uL (0-0.2) RDW Standard Deviation 41.9 fL (36.4-46.3) RDW Coefficient of Variation 12.6 % (11.5-14.5) Immature Granulocyte % (Auto) 0.2 % Immature Granulocyte # (Auto) 0.02 K/uL (0.00-0.02) Prothrombin Time 10.4 SECONDS (9.0-12.0) Prothromb Time International Ratio 1.0 (0.9-1.1) Activated Partial Thromboplast Time 27.3 SECONDS (21.0-31.0) Partial Thromboplastin Ratio 1.1 Anion Gap 9.0 mmol/L (3-11) Est Creatinine Clear Calc Drug Dose 49.9 ml/min Estimated GFR () 53.5 Estimated GFR (Non- 46.2 BUN/Creatinine Ratio 16.5 (10-20) Calcium Level 9.4 mg/dl (8.5-10.1) Total Bilirubin 0.6 mg/dl (0.2-1) Direct Bilirubin 0.2 mg/dl (0-0.2) Aspartate Amino Transf (AST/SGOT) 12 U/L (15-37) Alanine Aminotransferase (ALT/SGPT) 20 U/L (12-78) Alkaline Phosphatase 206 U/L (45-117) Total Protein 8.4 gm/dl (6.4-8.2) Albumin 3.9 gm/dl (3.4-5.0) Lipase 160 U/L (73-393) Beta-Hydroxybutyric Acid 1.48 mg/dL (0.2-2.81) Laboratory results as stated above per my review. ED Course 1805: Previous medical records were reviewed. The patient was evaluated in room B11B. A complete history and physical examination was performed. 1954: I checked on the patient and she doing well. I updated her on her test results. 1958: Dilaudid Inj, 1 mg, IV; Insulin human regular novoLIN-R U-100 per unit, 4 units, SC. 2009: On reevaluation, the patient is doing well. I discussed the results and findings with the patient. She verbalized agreement of the treatment plan. She was discharged home. Medical Decision Differential considered: pancreatitis, hepatitis, AAA, UTI, pyelonephritis, kidney stones, diverticulitis, shingles, bowel obstruction mesenteric ischemia, intussusception, hernia, ovarian torsion, ruptured ovarian cyst. This is a 72-year-old female who presents to the ED with a chief complaint of chronic left shoulder pain since 2014. She also reports abdominal pain since December. She states that she feels tired. The patient has no other specific complaints. She does have some mild tenderness to her abdomen on palpation. It does not appear to be focal. She reports a history of cholecystectomy, appendectomy and hysterectomy. The patient denies any fevers or vomiting. Her vital signs are stable. Her detailed physical exam as noted above. A CT scan of the abdomen and pelvis did not show acute process. CBC and chemistry panel was performed. There is no leukocytosis or anemia. The patient does have some hyperglycemia. The patient was treated with Dilaudid 1 mg IV for discomfort and given 4 units of regular subcu insulin for hyperglycemia. She was told the results. She is felt to be stable for discharge and outpatient follow-up. Medication Reconcilliation Current Medication List: was personally reviewed by me Blood Pressure Screening Patient's blood pressure: Elevated blood pressure Blood pressure disposition: Elevated BP felt to be situational Impression Primary Impression: Abdominal pain Additional Impressions: Chronic abdominal pain Hyperglycemia Scribe Attestation The scribe's documentation has been prepared under my direction and personally reviewed by me in its entirety. I confirm that the note above accurately reflects all work, treatment, procedures, and medical decision making performed by me. Departure Information Dispostion Home / Self-Care Referrals Radha Gonzalez (PCP) Patient Instructions My [facility] Additional Instructions Follow-up with your doctor for further care and evaluation in 1-2 days. Return to the emergency department for worsening or new symptoms or any concerns. You have been examined and treated today on an emergency basis only. This is not a substitute for, or an effort to provide, complete comprehensive medical care. It is impossible to recognize and treat all injuries or illnesses in a single emergency department visit. It is therefore important that you follow up closely with your doctor. Call as soon as possible for an appointment. Monitor your blood sugars. Your blood sugar today was elevated. Problem Qualifiers
[2017-04-12] MEDS ORDERED: METO100T14 PO (20:36)
[2017-04-12] MEDS ORDERED: ROSU20TA33 PO (20:40)
[2017-04-12] MEDS ORDERED: PLV75 PO (20:41)
[2017-04-12] MEDS ORDERED: LSN40 PO (20:42)
[2017-04-12] MEDS ORDERED: FERR325T5 PO (20:46)
[2017-04-12 21:04] VITALS: BP 148/101; PULSE 86; O2SAT 96
[2017-04-12] MEDS ORDERED: ASPI81TA28 PO (21:07)
[2017-04-12] MEDS ORDERED: CTP1CL PO (21:08)
== END 2017-04-12 21:05 | disposition home or self-care (01) ==
LOC: C.EDB 17:57
DX: R10.9 Unspecified abdominal pain (principal); E11.65 Type 2 diabetes mellitus with hyperglycemia; G89.29 Other chronic pain; J45.909 Unspecified asthma, uncomplicated; M54.9 Dorsalgia, unspecified; M10.9 Gout, unspecified; I10 Essential (primary) hypertension; Z96.619 Presence of unspecified artificial shoulder joint; E78.00 Pure hypercholesterolemia, unspecified; G47.30 Sleep apnea, unspecified; M06.9 Rheumatoid arthritis, unspecified; Z90.49 Acquired absence of other specified parts of digestive tract; Z90.710 Acquired absence of both cervix and uterus; Z83.3 Family history of diabetes mellitus; Z82.49 Family history of ischemic heart disease and other diseases of the circulatory system; Z82.0 Family history of epilepsy and other diseases of the nervous system; Z82.3 Family history of stroke; Z84.1 Family history of disorders of kidney and ureter; Z79.82 Long term (current) use of aspirin; Z79.899 Other long term (current) drug therapy; Z88.5 Allergy status to narcotic agent; Z88.8 Allergy status to other drugs, medicaments and biological substances; Z88.1 Allergy status to other antibiotic agents

== ENCOUNTER 2017-06-27 20:45 | Emergency (ER) | payer OTHER ==
[~2017-06-27] VITALS: Ht 167.6 cm; Wt 96.4 kg
[~2017-06-27 20:45] MED LIST changes: -DICL1GEL34 TOP; -LIDOCAINE TOP; -LSX40 PO; -SALONPAS TOP; -TPRSR/100 PO
[2017-06-27 20:47] VITALS: TEMP 37.1; Ht 167.6 cm; Wt 96.4 kg
[2017-06-27] MEDS ORDERED: SODIUM CHLORIDE 0.9% 1000ML 1,000 ML IV STA (21:00)
[2017-06-27] MEDS ORDERED: NovoLIN-R INSULIN PER UNIT CHARGE IV STA ×2 (21:00→22:17)
--- NOTE | 2017-06-27 21:12 | EMERGENCY ROOM VISIT NOTE ---
History Report prepared by Cadmen: Gosia Plummer Under the Supervision of: Dr. Stuart El M.D. First contact with patient: 20:58 Chief Complaint: HYPERGLYCEMIA Stated Complaint: PHYSICIAN REFERRED, HYPERGLYCEMIA History of Present Illness The patient is a 72 year old female who presents to the Emergency Room with complaints of persistent hyperglycemia. Her BSG is currently 550 here in the ED. She states her doctor called her this evening and told her that her blood sugar was 600. She reports she stopped taking her Lantus recently because it was inconvenient for her. She is not currently taking any medications for her diabetes. She denies any recent dizziness or nausea. She states "I feel perfectly fine, except my toes tingle". The patient does admit to increased mucous secretions in her throat at night. 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 A total of 10 systems reviewed and were otherwise negative. 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 (13) loose glenoid (14) Opioid Dependence-Unspec (15) Other Chronic Pain (16) Pure Hypercholesterolem (17) Recurrent falls (18) Rheumatoid arthritis (19) Sinus tachycardia (20) Sleep apnea Surgical Problems: (1) Cholecystectomy (2) Hx of appendectomy (3) Hysterectomy Family History Diabetes mellitus FH: heart disease Hypertension Kidney disease Kidney stones Seizures Stroke Social History Smoking Status: Never Smoker Alcohol Use: none Drug Use: none Marital Status: Housing Status: lives alone Occupation Status: retired Current/Historical Medications Scheduled Amlodipine (Norvasc), 5 MG PO QAM Aspirin (Aspirin Ec), 81 MG PO DAILY Clonidine Hcl (Catapres), 0.1 MG PO BID Clopidogrel Bisulfate (Clopidogrel), 75 MG PO DAILY Diclofenac Sodium (Topical) (Diclofenac Sodium), 1 APPLN TOP UD Duloxetine Hcl (Cymbalta), 60 MG PO DAILY Famotidine (Pepcid), 20 MG PO DAILY Ferrous Sulfate (Ferrous Sulfate), 325 MG PO BID Furosemide (Furosemide), 40 MG PO DAILY Gabapentin (Gabapentin), 600 MG PO TID Insulin Glargine (Basaglar Kwikpen), 15 UNITS SC QPM Lisinopril (Lisinopril), 40 MG PO QAM Magnesium Oxide (Mag-Ox), 400 MG PO DAILY Melatonin (Melatonin), 10 MG PO HS Metoprolol Succinate (Metoprolol Succinate ER), 100 MG PO DAILY Pantoprazole (Protonix), 40 MG PO DAILY Potassium Gluconate (Potassium Gluconate), 275 MG PO DAILY Rosuvastatin Calcium (Rosuvastatin Calcium), 20 MG PO HS Sitagliptin-Metformin Hcl (Janumet), 1 TAB PO DAILY [salonpas & lidocaine], 1 APPLN TOP prn Scheduled PRN Docusate Sodium (Docusate Sodium), 100 MG PO DAILY PRN for Constipation Ipratropium-Albuterol (Combivent Respimat), 1 PUFFS INH QID PRN for SOB/Wheezing Ipratropium-Albuterol (Duoneb), 1 TREATMENT NEB Q6H PRN for SOB/Wheezing Polyethylene Glycol 3350 (Miralax), 17 GM PO HS PRN for Constipation Allergies Coded Allergies: Cephalosporins (Verified Allergy, Intermediate, RINGING OF EARS,FALLING BALANCE ISSUES, 01/04/17) Prochlorperazine (Verified Allergy, Intermediate, STROKE LIKE SYMPTOMS, CAN'T TALK, 06/27/17) CHANGED REACTION TO INTERMEDIATE (FROM SEVERE) REACTION NOT INDICATIVE OF SEVERE *ALLERGY* AND THEREFORE CROSS-REACTING MEDICATIONS LIKELY OK TO GIVE Linezolid (Verified Adverse Reaction, Intermediate, diarrhea,vomiting, ) Tramadol (Verified Adverse Reaction, Intermediate, UNSTEADY ON FEET, HYPERACTIVITY, 06/27/17) Morphine (Verified Adverse Reaction, Unknown, NOT EFFECTIVE, 01/04/17) Physical Exam Vital Signs Date Time Temp Pulse Resp B/P (MAP) Pulse Ox O2 Delivery O2 Flow Rate FiO2 06/27/17 23:06 80 21 96 Room Air 06/27/17 23:01 106/85 06/27/17 22:06 80 20 96 Room Air 06/27/17 22:01 141/78 06/27/17 21:45 79 17 97 Room Air 06/27/17 21:35 77 06/27/17 21:32 128/95 06/27/17 21:16 97 Room Air 06/27/17 20:47 37.1 90 20 152/69 95 Room Air Physical Exam GENERAL: Patient is in no acute distress. HEENT: No acute trauma, normocephalic atraumatic, mucous membranes moist, no nasal congestion, no scleral icterus. NECK: No stridor, no adenopathy, no meningismus, trachea is midline. LUNGS: Difficult to listen to lung sounds as the patient vocalizes a wheeze during the exam. Lungs sound equal bilaterally, no respiratory distress. HEART: Without murmurs gallops or rubs, regular rate and rhythm. ABDOMEN: Soft, nontender, bowel sounds positive, no hernias, no peritonitis. EXTREMITIES: No cyanosis or edema, full range of motion of all the joints without pain or difficulty, no signs for acute trauma. NEUROLOGIC: Oriented x 3, no acute motor or sensory deficits, no focal weakness. SKIN: No rash, no jaundice, no diaphoresis. Medical Decision & Procedures ER Provider Diagnostic Interpretation: Radiology results as stated below per my review and radiologist interpretation: CHEST ONE VIEW PORTABLE CLINICAL HISTORY: Altered mental status. Weakness. COMPARISON STUDY: 04/12/2017 FINDINGS: The heart is enlarged. There is slight interstitial prominence. There is no focal pulmonary consolidation. There is slightly diminished lung volumes. There are no pleural effusions. There is no lobar consolidation. IMPRESSION: Cardiomegaly and mild interstitial thickening. No evidence of focal pulmonary consolidation Electronically signed by: Maury Costello M.D. 06/27/2017 9:46 PM Laboratory Results 06/27/17 21:19 Red Blood Count 4.39, Mean Corpuscular Volume 93.2, Mean Corpuscular Hemoglobin 31.2, Mean Corpuscular Hemoglobin Concent 33.5, Mean Platelet Volume 10.7, Neutrophils (%) (Auto) 65.1, Lymphocytes (%) (Auto) 29.6, Monocytes (%) (Auto) 3.8, Eosinophils (%) (Auto) 1.1, Basophils (%) (Auto) 0.2, Neutrophils # (Auto) 5.83, Lymphocytes # (Auto) 2.65, Monocytes # (Auto) 0.34, Eosinophils # (Auto) 0.10, Basophils # (Auto) 0.02 06/27/17 21:19 Test 06/27/17 21:19 06/27/17 23:06 06/27/17 23:10 White Blood Count 8.96 K/uL (4.8-10.8) Red Blood Count 4.39 M/uL (4.2-5.4) Hemoglobin 13.7 g/dL (12.0-16.0) Hematocrit 40.9 % (37-47) Mean Corpuscular Volume 93.2 fL (80-100) Mean Corpuscular Hemoglobin 31.2 pg (25-34) Mean Corpuscular Hemoglobin Concent 33.5 g/dl (32-36) Platelet Count 223 K/uL (130-400) Mean Platelet Volume 10.7 fL (7.4-10.4) Neutrophils (%) (Auto) 65.1 % Lymphocytes (%) (Auto) 29.6 % Monocytes (%) (Auto) 3.8 % Eosinophils (%) (Auto) 1.1 % Basophils (%) (Auto) 0.2 % Neutrophils # (Auto) 5.83 K/uL (1.4-6.5) Lymphocytes # (Auto) 2.65 K/uL (1.2-3.4) Monocytes # (Auto) 0.34 K/uL (0.11-0.59) Eosinophils # (Auto) 0.10 K/uL (0-0.5) Basophils # (Auto) 0.02 K/uL (0-0.2) RDW Standard Deviation 43.3 fL (36.4-46.3) RDW Coefficient of Variation 12.8 % (11.5-14.5) Immature Granulocyte % (Auto) 0.2 % Immature Granulocyte # (Auto) 0.02 K/uL (0.00-0.02) Nucleated RBC Absolute Count (auto) 0.02 K/uL (0-0) Nucleated Red Blood Cells % 0.2 % Anion Gap 8.0 mmol/L (3-11) Est Creatinine Clear Calc Drug Dose 49.3 ml/min Estimated GFR () 52.4 Estimated GFR (Non- 45.3 BUN/Creatinine Ratio 9.6 (10-20) Calcium Level 8.6 mg/dl (8.5-10.1) Magnesium Level 1.7 mg/dl (1.8-2.4) Total Bilirubin 0.4 mg/dl (0.2-1) Aspartate Amino Transf (AST/SGOT) 16 U/L (15-37) Alanine Aminotransferase (ALT/SGPT) 13 U/L (12-78) Alkaline Phosphatase 176 U/L (45-117) Troponin I < 0.015 ng/ml (0-0.045) Total Protein 8.3 gm/dl (6.4-8.2) Albumin 4.0 gm/dl (3.4-5.0) Globulin 4.3 gm/dl (2.5-4.0) Albumin/Globulin Ratio 0.9 (0.9-2) Beta-Hydroxybutyric Acid 1.03 mg/dL (0.2-2.81) Thyroid Stimulating Hormone (TSH) 2.100 uIu/ml (0.300-4.500) Bedside Glucose 250 mg/dl (70-90) Urine Color YELLOW Urine Appearance CLEAR (CLEAR) Urine pH 5.0 (4.5-7.5) Urine Specific [place] 1.024 (1.000-1.030) Urine Protein NEG (NEG) Urine Glucose (UA) 3+ (NEG) Urine Ketones NEG (NEG) Urine Occult Blood NEG (NEG) Urine Nitrite NEG (NEG) Urine Bilirubin NEG (NEG) Urine Urobilinogen NEG (NEG) Urine Leukocyte Esterase SMALL (NEG) Urine WBC (Auto) 10-30 /hpf (0-5) Urine RBC (Auto) 0-4 /hpf (0-4) Urine Hyaline Casts (Auto) 0 /lpf (0-5) Urine Epithelial Cells (Auto) 20-30 /lpf (0-5) Urine Bacteria (Auto) NEG (NEG) Laboratory results reviewed by me. Medications Administered Medications (Trade) Dose Ordered Sig/Krystal Route Start Time Stop Time Status Last Admin Dose Admin Sodium Chloride 1,000 ml @ 999 mls/hr Q1H1M STAT IV 06/27/17 21:00 06/27/17 22:00 DC 06/27/17 21:29 999 MLS/HR Insulin Human Regular (novoLIN-R U-100 PER UNIT) 10 units NOW STAT IV 06/27/17 21:00 06/27/17 21:04 DC 06/27/17 21:29 10 UNITS Sodium Chloride 500 ml @ 999 mls/hr Q31M STAT IV 06/27/17 22:17 06/27/17 22:47 DC 06/27/17 22:32 999 MLS/HR Insulin Human Regular (novoLIN-R U-100 PER UNIT) 10 units NOW STAT IV 06/27/17 22:17 06/27/17 22:19 DC 06/27/17 22:31 10 UNITS Hydromorphone HCl (Dilaudid Inj) 0.5 mg STK-MED ONCE .ROUTE 06/27/17 22:29 06/27/17 22:30 DC 06/27/17 22:32 0.5 MG Magnesium Oxide (Mag-Ox Tab) 400 mg NOW STAT PO 06/27/17 22:38 06/27/17 22:39 DC 06/27/17 23:06 400 MG ECG Per My Interpretation Indication: other (hyperglycemia) Rate (beats per minute): 72 Rhythm: normal sinus Findings: no ectopy, other (LVH, no ST elevation, no PVC) ED Course 2058: The patient was evaluated in room B6. A complete history and physical exam was performed. 2100: Mark-Anna R 100 per unit, 10 units IV, NSS 1000 ml @ 999 mls/hr IV. 2135: Nursing informed me the patient would like something for pain. 6: Dilaudid 0.5 mg IV. 2217: Mark-Anna 100 per unit 10 units IV, NSS 500 ml @ 999 mls/hr IV. 2238: Magnesium Oxide 400 mg PO. 2315: I reevaluated the patient. She is resting comfortably and her BSG is down to 250. Case management will talk to her about her insulin usage. 2335: I reevaluated the patient. Case Management saw the patient and she promised to take her medications. She states she feels well and is ready to go home. I discussed her results and discharge instructions and she verbalized complete understanding and agreement. Medical Decision The differential diagnoses considered include medication noncompliance, electrolyte imbalance, anemia, hyperglycemia, dehydration, UTI and pneumonia. There is no leukocytosis or concerning anemia. Renal panel testing shows a low sodium, a high blood sugar, a low magnesium. Alk phos was slightly elevated. The patient appears to be in a euthyroid state. Chest film does not show pneumonia or CHF. EKG shows a normal sinus rhythm with LVH, no acute ischemia. Cardiac enzyme testing 1 is not consistent with acute cardiac injury. Urinalysis does not show infection. Patient is not toxic or febrile. The patient received IV saline. She was given IV insulin, she received 10 units of insulin IV and then a second 10 units IV. She was given oral magnesium. She received IV Dilaudid for some pain in her back and left arm- these are chronic pain issues for her. The patient received her insulin as mentioned above as well as IV fluids. Her blood sugar is now in the 200s, she feels well, I do think she can be discharged. I did not find any source for infection. She will follow with her doctor next week. She has agreed to take all her medications as prescribed. She will return if worsening. Case management did talk with the patient as well. Medication Reconcilliation Current Medication List: was personally reviewed by me Blood Pressure Screening Patient's blood pressure: Elevated blood pressure Blood pressure disposition: Elevated BP felt to be situational Impression Primary Impression: Hyperglycemia Additional Impressions: Dehydration Noncompliance with medication regimen Scribe Attestation The scribe's documentation has been prepared under my direction and personally reviewed by me in its entirety. I confirm that the note above accurately reflects all work, treatment, procedures, and medical decision making performed by me. Departure Information Dispostion Home / Self-Care Referrals No Doctor, Assigned (PCP) Patient Instructions My [facility] Additional Instructions you must take your medications as prescribed, this includes the insulin see your doctor this week stay well hydrated return if worsening chest film was clear today Problem Qualifiers
[2017-06-27 21:16] VITALS: O2SAT 97
[2017-06-27] MEDS ORDERED: LIDOCAINE TOP (21:28)
[2017-06-27] MEDS ORDERED: LSX40 PO (21:28)
[2017-06-27] MEDS ORDERED: TPRSR/100 PO (21:28)
[2017-06-27] MEDS ORDERED: SALONPAS TOP (21:28)
[2017-06-27] MEDS ORDERED: DICL1GEL34 TOP (21:28)
[2017-06-27 21:31] LABS: BASO % 0.2 %; BASO ABS # 0.02 K/uL (0-0.2); EOS % 1.1 %; HEMATOCRIT 40.9 % (37-47); HEMOGLOBIN 13.7 g/dL (12.0-16.0); IG# 0.02 K/uL (0.00-0.02); LYMPH % 29.6 %; LYMPH ABS # 2.65 K/uL (1.2-3.4); MEAN CELL VOLUME 93.2 fL (80-100); MEAN CORPUSCULAR HEMOGLOBIN 31.2 pg (25-34); MEAN CORPUSCULAR HGB CONC 33.5 g/dl (32-36); MEAN PLATELET VOLUME 10.7 fL (7.4-10.4); MONO % 3.8 %; MONO ABS # 0.34 K/uL (0.11-0.59); NEUT % 65.1 %; NEUT ABS # 5.83 K/uL (1.4-6.5); NUCLEATED RED BLOOD CELL ABS 0.02 K/uL (0-0); PLATELET COUNT 223 K/uL (130-400); RED CELL DISTRIBUTION WIDTH CV 12.8 % (11.5-14.5); RED CELL DISTRIBUTION WIDTH SD 43.3 fL (36.4-46.3); WHITE BLOOD COUNT 8.96 K/uL (4.8-10.8)
[2017-06-27] MEDS ORDERED: HYDROmorphone INJ 2 MG/ML SYR/VIAL IV STA ×2 (21:36→22:25)
[2017-06-27] MEDS ORDERED: HYDROmorphone INJ 0.5 MG/0.5 ML SYR ONE ×2 (21:42→22:29)
--- NOTE | 2017-06-27 21:47 | DIAGNOSTIC IMAGING REPORT ---
CHEST ONE VIEW PORTABLE CLINICAL HISTORY: Altered mental status. Weakness. COMPARISON STUDY: 04/12/2017 FINDINGS: The heart is enlarged. There is slight interstitial prominence. There is no focal pulmonary consolidation. There is slightly diminished lung volumes. There are no pleural effusions. There is no lobar consolidation.[ IMPRESSION: Cardiomegaly and mild interstitial thickening. No evidence of focal pulmonary consolidation Electronically signed by: Maury Costello M.D. 06/27/2017 9:46 PM Dictated Date/Time: 06/27/2017 9:45 PM
[2017-06-27 21:58] LABS: ALT/SGPT 13 U/L (12-78); AST/SGOT 16 U/L (15-37); BLOOD UREA NITROGEN 11 mg/dl (7-18); CALCIUM 8.6 mg/dl (8.5-10.1); CARBON DIOXIDE 30 mmol/L (21-32); CREATININE 1.19 mg/dl (0.60-1.20); GLUCOSE 429 mg/dl (70-99); POTASSIUM 3.7 mmol/L (3.5-5.1); SODIUM 128 mmol/L (136-145)
[2017-06-27 22:03] LABS: ALKALINE PHOSPHATASE 176 U/L (45-117); TOTAL PROTEIN 8.3 gm/dl (6.4-8.2)
[2017-06-27] MEDS ORDERED: SODIUM CHLORIDE 0.9% 500ML 500 ML IV STA (22:17)
[2017-06-27] MEDS ORDERED: MAGNESIUM OXIDE 400 MG TAB PO STA (22:38)
[2017-06-27 23:57] VITALS: BP 155/85; PULSE 82; O2SAT 95
== END 2017-06-27 23:57 | disposition home or self-care (01) ==
LOC: C.EDB 20:47
DX: R73.9 Hyperglycemia, unspecified (principal); E86.0 Dehydration; Z91.14 Patient's other noncompliance with medication regimen; J45.909 Unspecified asthma, uncomplicated; I50.9 Heart failure, unspecified; E11.9 Type 2 diabetes mellitus without complications; M10.9 Gout, unspecified; I10 Essential (primary) hypertension; E78.00 Pure hypercholesterolemia, unspecified; Z79.82 Long term (current) use of aspirin; Z79.4 Long term (current) use of insulin; Z88.8 Allergy status to other drugs, medicaments and biological substances; Z88.5 Allergy status to narcotic agent

== ENCOUNTER → 2017-06-27 | Outpatient (CLI) | payer OTHER ==
[~2017-06-27] MED LIST changes: +ASPI81TA28 PO; -CITA40TA4 PO; +CTP1CL PO; +FAMO20TA11 PO; +FERR325T5 PO; +LIDOCAINE TOP; +LSN40 PO; +LSX40 PO; -MAGN250T22 PO; +MAGN400T6 PO; +METO100T14 PO; +PLV75 PO; +ROSU20TA33 PO; +SALONPAS TOP; +TPRSR/100 PO
[2017-06-27 17:53] LABS: BASO % 0.2 %; BASO ABS # 0.02 K/uL (0-0.2); EOS ABS # 0.08 K/uL (0-0.5); HEMATOCRIT 39.5 % (37-47); IG# 0.02 K/uL (0.00-0.02); LYMPH % 25.9 %; LYMPH ABS # 2.15 K/uL (1.2-3.4); MEAN CELL VOLUME 95.4 fL (80-100); MEAN CORPUSCULAR HEMOGLOBIN 31.4 pg (25-34); MEAN CORPUSCULAR HGB CONC 32.9 g/dl (32-36); MONO ABS # 0.58 K/uL (0.11-0.59); NEUT % 65.7 %; NEUT ABS # 5.45 K/uL (1.4-6.5); PLATELET COUNT 215 K/uL (130-400); RED CELL DISTRIBUTION WIDTH CV 13.1 % (11.5-14.5)
[2017-06-27 18:48] LABS: ALBUMIN 3.4 gm/dl (3.4-5.0); ALKALINE PHOSPHATASE 179 U/L (45-117); ALT/SGPT 14 U/L (12-78); BLOOD UREA NITROGEN 10 mg/dl (7-18); CALCIUM 8.4 mg/dl (8.5-10.1); CARBON DIOXIDE 31 mmol/L (21-32); CHOLESTEROL 102 mg/dl (0-200); CREATININE 1.25 mg/dl (0.60-1.20); GLUCOSE 649 mg/dl (70-99); LDL CHOLESTEROL CALCULATED 16 mg/dl; SODIUM 130 mmol/L (136-145)
[2017-06-27 19:00] LABS: POTASSIUM 3.9 mmol/L (3.5-5.1)
[2017-06-27 19:01] LABS: AST/SGOT 21 U/L (15-37)
[2017-06-28 06:46] LABS: HEMOGLOBIN A1C 13.4 % (4.5-5.6)
== END | disposition home or self-care (01) ==
LOC: C.LAB 17:20
PROVIDERS: ATTEND Nurse Practitioner Family
DX: E11.9 Type 2 diabetes mellitus without complications (principal); K57.30 Diverticulosis of large intestine without perforation or abscess without bleeding; I10 Essential (primary) hypertension; K42.9 Umbilical hernia without obstruction or gangrene; Z87.39 Personal history of other diseases of the musculoskeletal system and connective tissue; E78.5 Hyperlipidemia, unspecified

== ENCOUNTER 2019-09-26 14:01 | Observation (INO) ==
[2019-09-26] MEDS ORDERED: SODIUM CHLORIDE 0.9% 500 ML IV SCH (14:15)
--- NOTE | 2019-09-26 14:20 | Emergency Department Note ---
Impression & Plan Weakness, Hypomagnesemia, Fall, Pain of right leg, Failure of outpatient treatment ED Provider Note NAME: VIGNESH STAFFORD AGE: 74 SEX: F : 1945 ARRIVES VIA: Ambulance INFORMANT: [Patient][nursing] ED PROVIDER(S): [Stuart El MD] CHIEF COMPLAINT: Weakness HISTORY OF PRESENT ILLNESS: The patient is a 74-year-old female who was seen in this ED 2 days ago after sliding down to the floor. She had an extensive work-up including laboratory work and imaging. Nothing acute was found and she was able to walk with a walker. She was discharged. Since being discharged, the patient has not been able to get out of bed. She is too weak to stand. Both legs are weak in her right femur seems to give her a lot of pain basally from the hip to the knee. The patient states that there iha been no chest pain or fever, no cough or congestion or shortness of breath. No abdominal pain or vomiting. No urinary complaints. She just states that in general she is so weak she cannot do anything on her own. She was brought to the hospital by ambulance. She does not think she can be discharged back home. Of note, she does live alone. REVIEW OF SYSTEMS: See HPI for pertinent positives and negatives. A total of ten systems were reviewed and were otherwise negative. PMHx/PSHx: See Below SOCIAL HISTORY: See Below. PHYSICAL EXAM: GENERAL: Patient is in no acute distress. HEENT: No acute trauma, normocephalic atraumatic, mucous membranes moist, no nasal congestion, no scleral icterus. NECK: No stridor, no adenopathy, no meningismus, trachea is midline. LUNGS: Clear to auscultation bilaterally, no wheeze, no rhonchi, breath sounds equal. HEART: Without murmurs gallops or rubs, regular rate and rhythm. ABDOMEN: Soft, nontender, bowel sounds positive, no hernias, no peritonitis. EXTREMITIES: No cyanosis or edema. There seems to be intermittent pain in the area of the right thigh with movement of the right hip. There is no gross deformity to the right lower extremity. The patient actively moves her right leg at the hip and knee without discomfort but then at times, she seems to have severe pain. I see no thigh contusion, no evidence for right knee effusion. NEUROLOGIC: Oriented x 3, no acute motor or sensory deficits, no focal weakness. SKIN: No rash, no jaundice, no diaphoresis. DIFFERENTIAL DIAGNOSIS: Infection, dehydration, metabolic abnormality, hypo/hyperglycemia, right femur fracture, right hip dislocation, electrolyte disturbance, debilitation, UTI, anemia, hypoxia, cardiac sources, intracerebral event, toxicologic, neurologic, as well as other pathologies. EMERGENCY DEPARTMENT COURSE/PROCEDURES: ECG: Indication was weakness. The ECG shows a normal sinus rhythm with a rate of 90. There is no ST elevation, no PVCs. Some mild LVH may be present. The QTc is 474. Continuous Cardiac Monitoring: An order was placed for continuous cardiac monitoring. The monitor shows a rate of 85 with normal sinus rhythm. MEDICAL DECISION MAKING: There is no leukocytosis or concerning anemia. There is a normal platelet count. No kidney failure. Magnesium was low at 1.6. Bilirubin is slightly elevated, the remaining liver enzymes were unremarkable. No evidence of for issues with her thyroid. The ECG showed a sinus rhythm, no acute ischemia. Cardiac enzyme testing x1 was not consistent with acute cardiac injury. No evidence for rhabdomyolysis. Chest film did not show pneumonia or CHF. CT of the right femur did not show any acute fracture or dislocation. The patient received IV saline, IV and oral magnesium. She was given IV Tylenol. The patient presents with weakness. She cannot walk. She has been in bed since being discharged from our ED 2 days ago. She appears to be bruised, strained and sprained. No significant trauma found by work-up 2 days ago or today. I suppose the lower magnesium could be contributing to her weakness. This of course will be replaced. IV hydration will be continued. The patient will see PT and OT. She may eventually require inpatient rehab therapy. I spoke to the patient and case management. The on-call hospitalist was consulted. Past Med/Surg History Medical History Anemia Asthma CHF (congestive heart failure) Diabetes DVT (deep venous thrombosis) Gout HTN (hypertension) Intracranial hemorrhage (03/04/14) Subdural hematoma Surgical History H/O shoulder surgery History of hysterectomy Hx of appendectomy Family History Other Hypertension Seizures Social History Smoking Status: Never smoker Preferred Language: Albanian Communication Ability: Effective Visual Impairment: No Limitations 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: Normal Feels Safe at Home: Yes and No Allergies Allergies Allergy/AdvReac Type Severity Reaction Status Date / Time Cephalosporins Allergy Intermediate RINGING OF Verified 09/26/19 15:58 EARS,FALLING BALANCE ISSUES prochlorperazine Allergy Intermediate STROKE Verified 09/26/19 15:58 LIKE SYMPTOMS, CAN'T TALK linezolid AdvReac Intermediate diarrhea,vo Verified 09/26/19 15:58 miting tramadol AdvReac Intermediate UNSTEADY Verified 09/26/19 15:58 ON FEET, HYPERACTIVITY morphine AdvReac Unknown NOT Verified 09/26/19 15:58 EFFECTIVE Home Meds Home Medications Medication Instructions Recorded Confirmed amlodipine 5 mg PO QAM 10/21/17 09/26/19 aspirin [Aspirin Low Dose] 81 mg PO QAM 10/21/17 09/26/19 clonidine HCl 0.1 mg PO BID 10/21/17 09/26/19 clopidogrel 75 mg PO QAM 10/21/17 09/26/19 duloxetine 60 mg PO QAM 10/21/17 09/26/19 ferrous sulfate 325 mg PO BID 10/21/17 09/26/19 furosemide 40 mg PO QAM 10/21/17 09/26/19 lisinopril 40 mg PO QAM 10/21/17 09/26/19 metoprolol succinate 100 mg PO HS 10/21/17 09/26/19 pantoprazole 40 mg PO QAM 10/21/17 09/26/19 potassium gluconate 297.5 mg PO QAM 10/21/17 09/26/19 rosuvastatin 20 mg PO HS 10/21/17 09/26/19 sitagliptin-metformin [Janumet] 1 tab PO QPM 10/21/17 09/26/19 melatonin 10 mg PO HS 12/13/17 09/26/19 gabapentin 600 mg PO TID 06/17/18 09/26/19 magnesium oxide 500 mg PO QAM 12/17/18 09/26/19 insulin detemir U-100 [Levemir 15 unit SUBCUT DAILY 01/02/19 09/26/19 FlexTouch U-100 Insuln] Results & Data (ED) Vital Signs Vital Signs - 24 hr 09/26/19 14:12 09/26/19 14:14 09/26/19 14:38 Temperature 37.0 C Temperature Source Oral Pulse Rate 93 H 88 89 Pulse Rate from SpO2 Sensor 88 Respiratory Rate 20 23 20 Respiratory Effort / Characteristics Non-Labored Spontaneous Respiratory Depth Normal Respiratory Pattern Regular Blood Pressure 168/86 H 178/97 H Blood Pressure Mean 113 127 Pulse Oximetry 98 97 96 Oxygen Delivery Method Room Air Room Air Sepsis Recent Fever Within 48 Hours No Sepsis New/Unexplained Change in Mental Status N/A Sepsis Action Taken by Nursing No Action Required 09/26/19 14:43 09/26/19 15:06 09/26/19 15:08 Temperature Temperature Source Pulse Rate 85 85 82 Pulse Rate from SpO2 Sensor 85 83 Respiratory Rate 22 21 19 Respiratory Effort / Characteristics Respiratory Depth Respiratory Pattern Blood Pressure 179/103 H Blood Pressure Mean 116 Pulse Oximetry 96 98 Oxygen Delivery Method Sepsis Recent Fever Within 48 Hours Sepsis New/Unexplained Change in Mental Status Sepsis Action Taken by Nursing 09/26/19 15:30 09/26/19 15:32 09/26/19 16:01 Temperature Temperature Source Pulse Rate 79 79 79 Pulse Rate from SpO2 Sensor 79 80 80 Respiratory Rate 22 21 18 Respiratory Effort / Characteristics Respiratory Depth Respiratory Pattern Blood Pressure 169/88 H 176/92 H Blood Pressure Mean 109 129 Pulse Oximetry 93 93 97 Oxygen Delivery Method Sepsis Recent Fever Within 48 Hours Sepsis New/Unexplained Change in Mental Status Sepsis Action Taken by Nursing 09/26/19 16:30 09/26/19 16:31 Temperature Temperature Source Pulse Rate 86 85 Pulse Rate from SpO2 Sensor Respiratory Rate 18 20 Respiratory Effort / Characteristics Respiratory Depth Respiratory Pattern Blood Pressure 175/104 H Blood Pressure Mean 135 Pulse Oximetry Oxygen Delivery Method Sepsis Recent Fever Within 48 Hours Sepsis New/Unexplained Change in Mental Status Sepsis Action Taken by Shelter Medications Current Medication List: was personally reviewed by me Laboratory Data Attestation: I reviewed the patient's lab results. Result diagrams: 09/26/19 14:39 09/26/19 14:39 Lab Results 09/26/19 09/26/19 Range/Units 14:39 14:39 WBC 8.68 (4.8-10.8) K/uL RBC 4.42 (4.2-5.4) M/uL Hgb 13.3 (12.0-16.0) g/dL Hct 40.3 (37-47) % MCV 91.2 (80-100) fL MCH 30.1 (25-34) pg MCHC 33.0 (32-36) g/dL RDW Std Deviation 46.4 H (36.4-46.3) fL RDW Coeff of [place] 14.0 (11.5-14.5) % Plt Count 205 (130-400) K/uL MPV 10.6 H (7.4-10.4) fL Immature Gran % (Auto) 0.1 % Neut % (Auto) 80.1 % Lymph % (Auto) 14.6 % Dawes % (Auto) 3.5 % Eos % (Auto) 1.6 % Baso % (Auto) 0.1 % Neut # (Auto) 6.95 H (1.4-6.5) K/uL Lymph # (Auto) 1.27 (1.2-3.4) K/uL Dawes # (Auto) 0.30 (0.11-0.59) K/uL Eos # (Auto) 0.14 (0-0.5) K/uL Baso # (Auto) 0.01 (0-0.2) K/uL Immature Gran # (Auto) 0.01 (0.00-0.02) K/uL Sodium 139 (136-145) mmol/L Potassium 3.9 (3.5-5.1) mmol/L Chloride 105 (98-107) mmol/L Carbon Dioxide 30 (21-32) mmol/L Anion Gap 4.0 (3-11) BUN 8 D (7-18) mg/dl Creatinine 0.74 (0.6-1.2) mg/dl Est Cr Clr Drug Dosing 68.5 ml/min Est GFR ( Amer) 91.9 Est GFR (Non-Af Amer) 79.3 BUN/Creatinine Ratio 11.4 (10-20) Glucose 210 H (70-99) mg/dl Calcium 8.7 (8.5-10.1) mg/dl Magnesium 1.6 L (1.8-2.4) mg/dl Total Bilirubin 1.2 H (0.2-1) mg/dl AST 12 L (15-37) U/L ALT 17 (12-78) U/L Alkaline Phosphatase 116 (45-117) U/L Total Creatine Kinase 39 (26-192) U/L Troponin I < 0.015 (0-0.045) ng/ml Total Protein 7.3 (6.4-8.2) gm/dl Albumin 3.0 L (3.4-5.0) gm/dl Globulin 4.3 H (2.5-4.0) gm/dl Albumin/Globulin Ratio 0.7 L (0.9-2) TSH 0.528 (0.300-4.500) uIu/ml Administered Medications Magnesium Sulfate/Dextrose (Magnesium Sulfate / D5w) 1 gm in 100 mls @ 100 mls/hr IV Q1H BARRY Stop: 09/26/19 17:32 Last Infusion: 09/26/19 16:43 Dose: 0 mls/hr Documented by: [id number] Admin: 09/26/19 15:38 Dose: 100 mls/hr Documented by: [id number] Discontinued Medications Sodium Chloride (Nss) 500 mls @ 999 mls/hr IV .Q31M BARRY Stop: 09/26/19 14:45 Last Infusion: 09/26/19 15:15 Dose: 0 mls/hr Documented by: [id number] Admin: 09/26/19 14:38 Dose: 999 mls/hr Documented by: [id number] Acetaminophen (Ofirmev) 1,000 mg in 100 mls @ 400 mls/hr IV NOW STA Stop: 09/26/19 16:15 Last Admin: 09/26/19 16:43 Dose: 400 mls/hr Documented by: [id number] Magnesium Oxide (Magnesium Oxide 400 Mg Tab) 400 mg PO NOW STA Stop: 09/26/19 15:34 Last Admin: 09/26/19 15:38 Dose: 400 mg Documented by: [id number] Imaging Data Radiologist's Impression: XR chest 1V portable HISTORY: 74 years-old Female weakness acute weakness COMPARISON: Chest radiograph 09/24/2019 TECHNIQUE: Portable AP view of the chest FINDINGS: Cardiac silhouette is mildly enlarged. Calcified plaque of the thoracic aortic arch. No pneumothorax, pleural effusion, airspace consolidation or overt pulmonary edema. Chronic left shoulder deformity. Moderate right shoulder osteoarthritis. IMPRESSION: No acute process. CT femur RT wo con HISTORY: 74 years-old Female fall, pain, can not walk acute right femur pain status post fall COMPARISON: CT abdomen and pelvis 09/24/2019 TECHNIQUE: Multiple axial CT images of the right femur were obtained without the use of IV contrast. A dose lowering technique was used consistent with the principals of BEA. FINDINGS: Demineralized appearance of the bones. Right hip total joint arthroplasty. Streak artifact from the hardware limits the study. No evidence of hardware fracture or loosening. Moderate tricompartmental osteoarthritis of the right knee. Small right knee joint effusion. Arterial calcifications. No large hematoma. Nonspecific subcutaneous edema. Moderate fecal retention. IMPRESSION: 1. No acute fracture or dislocation. 2. Right hip total joint arthroplasty without evidence of hardware complication. Blood Pressure Blood Pressure Findings: Elevated blood pressure Blood Pressure Disposition: further management by hospitalist Head Trauma GCS Score: 15 Discharge Plan Visit Data Chief Complaint: Leg Weakness, Bilateral Stated Complaint: UNABLE TO AMBULATE ED Provider: Stuart El Discharge Problem: Weakness, Hypomagnesemia, Fall, Pain of right leg, Failure of outpatient treatment Patient Disposition: Admitted As Inpatient Condition: Good Forms Stand Alone Forms: My [facility] [place] [employer] Prescriptions Prescriptions: No Action furosemide 40 mg Tablet 40 mg PO QAM RF: 0 clonidine HCl 0.1 mg Tablet 0.1 mg PO BID RF: 0 metoprolol succinate 100 mg Tablet Extended Release 24 Hr 100 mg PO HS RF: 0 clopidogrel 75 mg Tablet 75 mg PO QAM RF: 0 amlodipine 5 mg Tablet 5 mg PO QAM RF: 0 aspirin [Aspirin Low Dose] 81 mg Tablet,Delayed Release (Dr/Ec) 81 mg PO QAM RF: 0 pantoprazole 40 mg Tablet,Delayed Release (Dr/Ec) 40 mg PO QAM RF: 0 ferrous sulfate 325 mg (65 mg iron) Tablet 325 mg PO BID RF: 0 lisinopril 40 mg Tablet 40 mg PO QAM RF: 0 rosuvastatin 20 mg Tablet 20 mg PO HS RF: 0 duloxetine 60 mg Capsule,Delayed Release(Dr/Ec) 60 mg PO QAM RF: 0 Janumet 50-1,000 mg Tablet 1 tab PO QPM RF: 0 potassium gluconate 595 mg (99 mg) Tablet 297.5 mg PO QAM RF: 0 gabapentin 600 mg tablet 600 mg PO TID RF: 0 Levemir FlexTouch U-100 Insuln 100 unit/mL (3 mL) insulin pen 15 unit SUBCUT DAILY RF: 0 melatonin 5 mg Tablet 10 mg PO HS RF: 0 magnesium oxide 500 mg capsule 500 mg PO QAM RF: 0 Referrals Referrals: aRdha Gonzalez CRNP [Primary Care Provider] -
[2019-09-26 14:55] LABS: Basophils # (auto) 0.01 K/uL (0-0.2); Basophils % (auto) 0.1 %; Eosinophils # (auto) 0.14 K/uL (0-0.5); Eosinophils % (auto) 1.6 %; Hematocrit (blood only) 40.3 % (37-47); Hemoglobin 13.3 g/dL (12.0-16.0); Immature Granulocytes # (auto) 0.01 K/uL (0.00-0.02); Immature Granulocytes % (auto) 0.1 %; Lymphocytes # (auto) 1.27 K/uL (1.2-3.4); Lymphocytes % (auto) 14.6 %; Mean Corpuscular Hemoglobin 30.1 pg (25-34); Mean Corpuscular Volume 91.2 fL (80-100); Mean Platelet Volume 10.6 fL (7.4-10.4); Monocytes % (auto) 3.5 %; Neutrophils # (auto) 6.95 K/uL (1.4-6.5); Neutrophils % (auto) 80.1 %; Platelet Count 205 K/uL (130-400); RDW Standard Deviation 46.4 fL (36.4-46.3); Red Blood Count 4.42 M/uL (4.2-5.4); White Blood Count 8.68 K/uL (4.8-10.8)
--- NOTE | 2019-09-26 15:00 | XRay Report ---
XR chest 1V portable HISTORY: 74 years-old Female weakness acute weakness COMPARISON: Chest radiograph 09/24/2019 TECHNIQUE: Portable AP view of the chest FINDINGS: Cardiac silhouette is mildly enlarged. Calcified plaque of the thoracic aortic arch. No pneumothorax, pleural effusion, airspace consolidation or overt pulmonary edema. Chronic left shoulder deformity. Moderate right shoulder osteoarthritis. IMPRESSION: No acute process. ACT 112: Negative or not required by law. The above report was generated using voice recognition software. It may contain grammatical, syntax o r spelling errors. Electronically signed by: Sean Shah M.D. 09/26/2019 2:59 PM
[2019-09-26 15:21] LABS: Alanine Aminotransferase 17 U/L (12-78); Aspartate Aminotransferase 12 U/L (15-37); BUN Creatinine Ratio 11.4 (10-20); Blood Urea Nitrogen 8 mg/dl (7-18); Calcium 8.7 mg/dl (8.5-10.1); Carbon Dioxide 30 mmol/L (21-32); Chloride 105 mmol/L (98-107); Creatinine Clr Calc Pharmacy 68.5 ml/min; Est GFR (African American) 91.9; Est GFR (Non-African American) 79.3; Glucose 210 mg/dl (70-99); Magnesium 1.6 mg/dl (1.8-2.4); Potassium 3.9 mmol/L (3.5-5.1); Sodium 139 mmol/L (136-145)
--- NOTE | 2019-09-26 15:27 | CT Scan Report ---
CT femur RT wo con HISTORY: 74 years-old Female fall, pain, can not walk acute right femur pain status post fall COMPARISON: CT abdomen and pelvis 09/24/2019 TECHNIQUE: Multiple axial CT images of the right femur were obtained without the use of IV contrast. A dose lowering technique was used consistent with the principals of BEA. FINDINGS: Demineralized appearance of the bones. Right hip total joint arthroplasty. Streak artifact from the h ardware limits the study. No evidence of hardware fracture or loosening. Moderate tricompartmental os teoarthritis of the right knee. Small right knee joint effusion. Arterial calcifications. No large he matoma. Nonspecific subcutaneous edema. Moderate fecal retention. IMPRESSION: 1. No acute fracture or dislocation. 2. Right hip total joint arthroplasty without evidence of hardware complication. ACT 112: Negative or not required by law. The above report was generated using voice recognition software. It may contain grammatical, syntax o r spelling errors. Electronically signed by: Sean Shah M.D. 09/26/2019 3:26 PM
[2019-09-26 15:29] LABS: Albumin Globulin Ratio 0.7 (0.9-2); Alkaline Phosphatase 116 U/L (45-117); Bilirubin,Total 1.2 mg/dl (0.2-1); Creatine Kinase 39 U/L (26-192); Globulin 4.3 gm/dl (2.5-4.0); Thyroid Stimulating Hormone 0.528 uIu/ml (0.300-4.500); Total Protein 7.3 gm/dl (6.4-8.2); Troponin I < 0.015 ng/ml (0-0.045)
[2019-09-26] MEDS ORDERED: MAGNESIUM OXIDE 400 MG TAB PO STA (15:33)
[2019-09-26] MEDS: MAGNESIUM SULFATE / D5W 1 GM/100 ML BAG IV SCH ×2 (15:38→17:15)
[2019-09-26] MEDS ORDERED: ACETAMINOPHEN 1,000 MG/100 ML VIAL IV STA (16:01)
--- NOTE | 2019-09-26 16:04 | History & Physical Report ---
Date of Service September 26, 2019 Assessment & Plan (1) Fall: (2) Weakness: -Admit to [facility] -PT/OT consults -Lives at home by herself, CM consult for discharge planning -Fall precautions -Pain control with kpad, tylenol, voltaren gel, dilaudid 0.5 mg IV prn breakthrough pain -Imaging reviewed which revealed no fractures (3) Hypomagnesemia: -1.6 upon admission, replace via IV - Cont daily mag oxide (4) HTN (hypertension): -History of such, continue amlodipine 5 mg daily, Lasix 40 mg daily, clonidine 0.1 mg BID, lisinopril 40 mg daily, metoprolol succinate 100 mg HS (5) CHF (congestive heart failure): -Chronic, diastolic, appears euvolemic at present -Last echocardiogram August 2015: No concentric LVH, basal septum is thickened and angulated consistent with sigmoid septum 55 to 60%, normal left ventricular systolic function no wall motion abnormalities -Follows with Dr. Leyva as outpatient -Continue antihypertensives, Lasix (6) Anemia: - Stable, continue ferrous sulfate supplementation (7) Diabetes: -Continue Levemir 15 units subcu daily, Januvia -ISS with Accu-Cheks AC at bedtime -Last A1C: June 2017 = 13.4, recheck with a.m. lab (8) Asthma: -History of such (9) Arthritis: - Chronic - Add voltaren gel, kpad, and Tylenol scheduled, Dilaudid 0.5 mg Q3H prn for breakthrough pain (10) Subdural hematoma: - Hx of such in 2014, stable (11) DVT prophylaxis: - teds, Plavix CODE: DNR Dispo: From home, lives alone, will remain in the hospital x2 nights for rehab placement, CM to assist with discharge planning History of Present Illness Primary Care Provider: KEILY Medeiros This is a 74 yo F with PMhx of CHF, HTN, HLD, DM II, Asthma, falls, hx of subdural hematoma, DJD, DVT, gout who presents to the ER after a fall which she sustained 2 days ago. She was evaluated on 09/23 after sitting at the side of the bed and attempting to stand up, got lightheaded and then slid herself down to the ground against her bed. Once in the ER, no acute fractures were found and so was discharged. She reports sleeping all day yesterday and awoke this morning surprised that it was Friday whenever she came here to the ER. She notes her right hip has always given her issues, but it is significantly more painful today. She also has chronic pain involving the left shoulder. She feels as if she is so weak that she cannot do anything on her own, has been unable to stand up, and therefore requests rehab. She denies any other acute complaints. The patient lives at home by herself. Allergies Allergy/AdvReac Type Severity Reaction Status Date / Time Cephalosporins Allergy Intermediate RINGING OF Verified 09/26/19 15:58 EARS,FALLING BALANCE ISSUES prochlorperazine Allergy Intermediate STROKE Verified 09/26/19 15:58 LIKE SYMPTOMS, CAN'T TALK linezolid AdvReac Intermediate diarrhea,vo Verified 09/26/19 15:58 miting tramadol AdvReac Intermediate UNSTEADY Verified 09/26/19 15:58 ON FEET, HYPERACTIVITY morphine AdvReac Unknown NOT Verified 09/26/19 15:58 EFFECTIVE Home Medications Home Medications Medication Instructions Recorded Confirmed Type amlodipine 5 mg PO QAM 10/21/17 09/26/19 History aspirin [Aspirin Low Dose] 81 mg PO QAM 10/21/17 09/26/19 History clonidine HCl 0.1 mg PO BID 10/21/17 09/26/19 History clopidogrel 75 mg PO QAM 10/21/17 09/26/19 History duloxetine 60 mg PO QAM 10/21/17 09/26/19 History ferrous sulfate 325 mg PO BID 10/21/17 09/26/19 History furosemide 40 mg PO QAM 10/21/17 09/26/19 History lisinopril 40 mg PO QAM 10/21/17 09/26/19 History metoprolol succinate 100 mg PO HS 10/21/17 09/26/19 History pantoprazole 40 mg PO QAM 10/21/17 09/26/19 History potassium gluconate 297.5 mg PO QAM 10/21/17 09/26/19 History rosuvastatin 20 mg PO HS 10/21/17 09/26/19 History sitagliptin-metformin [Janumet] 1 tab PO QPM 10/21/17 09/26/19 History melatonin 10 mg PO HS 12/13/17 09/26/19 History gabapentin 600 mg PO TID 06/17/18 09/26/19 History magnesium oxide 500 mg PO QAM 12/17/18 09/26/19 History insulin detemir U-100 [Levemir 15 unit SUBCUT DAILY 01/02/19 09/26/19 History FlexTouch U-100 Insuln] Past Med/Surg History Medical History Anemia Asthma CHF (congestive heart failure) Diabetes DVT (deep venous thrombosis) Gout HTN (hypertension) Intracranial hemorrhage (03/04/14) Subdural hematoma Surgical History (Updated 09/26/19 @ 21:53 by Peter Martinez) H/O shoulder surgery History of hysterectomy Hx of appendectomy S/P IVC filter Family History Other Hypertension Seizures Social History Smoking Status: Never smoker Hx Alcohol Use: No Hx Substance Use: No Preferred Language: [place] Communication Ability: Effective Visual Impairment: No Limitations 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: Normal Tour Guide Required: No Beliefs That Will Affect Care: None Current Living Situation: Alone Current Living Situation Comment: Condo Other Information That Helps Us Care for You: No Feels Safe at Home: Yes Safety Concerns: Feels Safe At This Time Review of Systems Review of Systems: Constitutional: No fever, sweats or chills Eyes: No diplopia, no worsening or blurred vision ENT: normal hearing, no trouble swallowing Respiratory: No cough, sputum, dyspnea at rest or on exertion Cardiovascular: No chest pain, tightness or palpitations Abdomen: No pain, nausea, vomiting, diarrhea or constipation Musculoskeletal: As per HPI Neurologic: + Generalized weakness, no numbness/tingling, + history of fall Psychiatric: No anxiety or depression Skin: No rash or itch Physical Exam Physical Exam: General: awake, alert, no apparent distress, -Russian Head: Normocephalic, atraumatic ENT: PERRL, EOMI, no pharyngeal exudate, mucous membranes moist Chest: Clear to auscultation, on room air, no adventitious breath sounds Cardiac: Regular rate and rhythm, + few PVCs, + faint systolic murmur, no JVD, normal peripheral pulses, good capillary refill Abdominal: NABS x 4 quadrants, soft, nondistended, nontender to palpation, no rebound, guarding or tenderness Extremities: Normal inspection, no peripheral edema or erythema, calfs nontender to palpation Psych: Normal mood and affect Neuro: AAO x 3, strength intact bilaterally in upper extremities rated 5/5, lower extremity rated 4/5, no gross motor deficits, speech is clear, no peripheral sensory deficits Skin: no rash or erythema Results & Data Results & Data ([facility]) Vital Signs (Past 12 Hours) Vital Signs Temp Pulse Resp BP Pulse Ox 09/26/19 15:08 82 19 179/103 H 98 09/26/19 15:06 85 21 09/26/19 14:43 85 22 96 09/26/19 14:38 89 20 96 09/26/19 14:14 88 23 178/97 H 97 09/26/19 14:12 37.0 C 93 H 20 168/86 H [address] femur RT wo con HISTORY: 74 years-old Female fall, pain, can not walk acute right femur pain status post fall COMPARISON: CT abdomen and pelvis 09/24/2019 TECHNIQUE: Multiple axial CT images of the right femur were obtained without the use of IV contrast. A dose lowering technique was used consistent with the principals of JABIERRA. FINDINGS: Demineralized appearance of the bones. Right hip total joint arthroplasty. Streak artifact from the hardware limits the study. No evidence of hardware fracture or loosening. Moderate tricompartmental osteoarthritis of the right knee. Small right knee joint effusion. Arterial calcifications. No large hematoma. Nonspecific subcutaneous edema. Moderate fecal retention. IMPRESSION: 1. No acute fracture or dislocation. 2. Right hip total joint arthroplasty without evidence of hardware complication. XR chest 1V portable HISTORY: 74 years-old Female weakness acute weakness COMPARISON: Chest radiograph 09/24/2019 TECHNIQUE: Portable AP view of the chest FINDINGS: Cardiac silhouette is mildly enlarged. Calcified plaque of the thoracic aortic arch. No pneumothorax, pleural effusion, airspace consolidation or overt pulmonary edema. Chronic left shoulder deformity. Moderate right shoulder osteoarthritis. IMPRESSION: No acute process. ECG Additional Comments: Normal sinus rhythm Left axis deviation Abnormal ECG When compared with ECG of 17-DEC-2018 10:01, Nonspecific T wave abnormality now evident in Inferior leads 25mm/s 10mm/mV 150Hz 9.0.9 12SL 241 LUX: 13 Referred by: REFERRED SELF Unconfirmed Vent. rate 90 BPM NC interval 188 ms QRS duration 102 ms QT/QTc 388/474 ms P-R-T axes 69 -33 15 Code Status & VTE Plan Code Status DNR-discussed with the patient at bedside Supervising Physician Co-Signing Physician Notes Attending Attestation & Admission Note: Pt seen/examined, chart reviewed, care plan d/w PA Yolanda Rubio. I agree w/ the torres components of her documentation. 74yo female with chronic pain syndrome on dilaudid four times/day, multiple medical problems including T2DM/HTN/gout/prior SDH/chronic diastolic CHF - presenting with weakness and right groin pain s/p fall on 09/24/2019. Had very large w/u in the ER on 09/23 and all imaging studies were negative for fracture or acute internal injury. Labs were acceptable. Was d/c home, but apparently slept most of Friday and today had very difficult time ambulating. She was felt very unsafe to d/c home. During my assessment she was awake/alert. c/o right groin pain and chronic left shoulder pain. Ate well throughout the day. Denied pain in any other joint/location. PMH, PSH, allergies, meds, sochx, famhx- reviewed VSS, BP mildly high, o2 sats wnl gen - NAD, awake, cheerful mouth - MM slightly dry neck - no JVD heart - RRR, s1 s2 lungs - CTA b/l abd - soft NT ND BS+ ext - no edema, pulses 2+ b/l musculo - I was able to passively flex the right hip without much pain; no deformity; left hip with normal ROM. strength b/l legs 5/5. right knee with small effusion but nontender. OA changes of hands. labs - reviewed all imaging studies from 09/23 and 09/25 reviewed; noted that esophageal wall was thickened mildly on CT from 09/23; moderate constipation A/P: 1. controlled "fall" at home on 09/23 with negative work-up 2. persistent right groin pain with prior THR on that side; hardware appears intact on CT femur today 3. weakness - obtain PT/OT evals 4. chronic pain syndrome on large amounts of oral dilaudid (4mg qid) 5. no evidence of any infectious process on ua, cxr today, etc 6. CPK noted to be normal 7. hypomagnesemia - replace, repeat level am other plans per Ms Ramiro Martinez MD PG Care Time/CCT Total # of Minutes Spent Total Time Spent with Patient: Total time spent is greater than 50% in coordination of care (as documented) at patient's floor/unit and/or counseling patient: Coding Level of Care Code 89241 Initial Inpt Care Lvl 3 Diagnoses Fall W19.XXXA Encounter type: initial encounter Weakness R53.1 Hypomagnesemia E83.42 HTN (hypertension) I10 Hypertension type: essential hypertension CHF (congestive heart failure) I50.9 Anemia D64.9 Diabetes E11.9 Asthma J45.909 Arthritis M19.90 Subdural hematoma S06.5X9A DVT prophylaxis Z29.9 (1) HTN (hypertension) Hypertension type: essential hypertension Qualified Code(s): I10 - Essential (primary) hypertension (2) Fall Encounter type: initial encounter Qualified Code(s): W19.XXXA - Unspecified fall, initial encounter
[2019-09-26] MEDS ORDERED: DICLOFENAC SOD 1% GEL 100 GM TUBE EXT PRN (16:58)
[2019-09-26] MEDS ORDERED: CARBOHYDRATES FOR HYPOGLYCEMIA PO PRN (17:58)
[2019-09-26] MEDS ORDERED: ONDANSETRON INJ 2 MG/ML 2 ML VIAL IV PRN (17:58)
[2019-09-26] MEDS ORDERED: GLUCAGON FOR INJ 1 MG VIAL SQ PRN (17:58)
[2019-09-26] MEDS ORDERED: GLUCOSE 10 TABS/TUBE PO PRN (17:58)
[2019-09-26] MEDS ORDERED: GLUCOSE 40% GEL 15 GM TUBE PO PRN (17:58)
[2019-09-26] MEDS ORDERED: DEXTROSE 50% 50 ML SYRINGE IV PRN (17:58)
[2019-09-26] MEDS ORDERED: ACETAMINOPHEN 500 MG TAB PO PRN (17:58)
[2019-09-26 18:20] LABS: Appearance Urine Clear (Clear); Bilirubin Urine Negative (Negative); Blood Urine Negative (Negative); Color Urine Yellow; Glucose Urine UA Trace (Negative); Ketones Urine Negative (Negative); Leukocyte Esterase Urine Negative (Negative); Nitrite Urine Negative (Negative); Protein Urine Negative (Negative); Urobilinogen Urine Negative (Negative); pH Urine 6.5 (4.5-7.5)
[2019-09-26] MEDS: INSULIN ASPART 100 UNITS/ML 3 ML PEN SC SCH ×2 (19:27→21:12)
[2019-09-26] MEDS: HYDROmorphone INJ 0.5 MG/0.5 ML SYR IV PRN (19:28)
[2019-09-26] MEDS ORDERED: NON-FORMULARY MEDICATION (Sitagliptin-Metformin [Janumet] 1 TAB) PO SCH (21:00)
[2019-09-26] MEDS: MELATONIN 3 MG TAB PO SCH (21:12)
[2019-09-26] MEDS: GABAPENTIN 600 MG TAB PO SCH (21:12)
[2019-09-26] MEDS: ROSUVASTATIN CALCIUM 20 MG TAB PO SCH (21:12)
[2019-09-26] MEDS: cloNIDine HCL 0.1 MG TAB PO SCH (21:12)
[2019-09-26] MEDS: METOPROLOL SUCC 50MG EXT REL TAB PO SCH (21:12)
[2019-09-26] MEDS: FERROUS SULFATE 325 MG TAB PO SCH (21:12)
[2019-09-26] MEDS ORDERED: PANTOprazole 40 MG TAB PO STA (21:50)
[2019-09-26] MEDS: HYDROmorphone HCL 2 MG TAB PO SCH (22:03)
--- NOTE | 2019-09-27 00:04 | Electrocardiogram Report ---
Test Reason : Blood Pressure : / mmHG Vent. Rate : 090 BPM Atrial Rate : 090 BPM P-R Int : 188 ms QRS Dur : 102 ms QT Int : 388 ms P-R-T Axes : 069 -33 015 degrees QTc Int : 474 ms Normal sinus rhythm Left axis deviation Abnormal ECG When compared with ECG of 17-DEC-2018 10:01, No significant change Confirmed by Alen Moreno ([id number]) on 09/27/2019 12:04:21 AM Referred By: REFERRED SELF Confirmed By:Alen Moreno
[2019-09-27] MEDS: HYDROmorphone INJ 0.5 MG/0.5 ML SYR IV PRN (03:04)
[2019-09-27 08:30] LABS: BUN Creatinine Ratio 16.4 (10-20); Creatinine Clr Calc Pharmacy 67.6 ml/min; Est GFR (African American) 90.4; Magnesium 1.7 mg/dl (1.8-2.4); Potassium 3.9 mmol/L (3.5-5.1)
[2019-09-27 08:52] LABS: Estimated Average Glucose 166 mg/dl; Hemoglobin A1C 7.4 % (4.5-5.6)
[2019-09-27] MEDS ORDERED: POTASSIUM GLUCONATE PO SCH (09:00)
[2019-09-27] MEDS ORDERED: PANTOprazole 40 MG TAB PO SCH (09:00)
[2019-09-27] MEDS: FUROSEMIDE 40 MG TAB PO SCH (09:01)
[2019-09-27] MEDS: PANTOprazole 40 MG TAB PO SCH ×2 (09:01→21:40)
[2019-09-27] MEDS: CLOPIDOGREL BISULFATE 75 MG TAB PO SCH (09:02)
[2019-09-27] MEDS: GABAPENTIN 600 MG TAB PO SCH ×3 (09:03→21:40)
[2019-09-27] MEDS: AMLODIPINE BESYLATE 5 MG TAB PO SCH (09:03)
[2019-09-27] MEDS: ASPIRIN 81 MG ECTAB PO SCH (09:03)
[2019-09-27] MEDS: DULOXETINE HCL 60 MG CAP PO SCH (09:03)
[2019-09-27] MEDS: cloNIDine HCL 0.1 MG TAB PO SCH ×2 (09:04→21:32)
[2019-09-27] MEDS: MAGNESIUM OXIDE 400 MG TAB PO SCH (09:04)
[2019-09-27] MEDS: lisinopriL 40 MG TAB PO SCH (09:05)
[2019-09-27] MEDS: FERROUS SULFATE 325 MG TAB PO SCH ×2 (09:05→21:40)
[2019-09-27] MEDS: HYDROmorphone HCL 2 MG TAB PO SCH ×4 (09:09→21:41)
[2019-09-27] MEDS: INSULIN ASPART 100 UNITS/ML 3 ML PEN SC SCH ×4 (09:13→21:27)
[2019-09-27] MEDS: INSULIN DETEMIR FLEXPEN/FLEX TOUCH 100 UNITS/ML 3ML SQ SCH (09:15)
--- NOTE | 2019-09-27 15:00 | Hospitalist Progress Note ---
Date of Service September 27, 2019 Assessment & Plan (1) Fall: fell two days prior to admission patient is weak, needs to go to rehab (2) Weakness: -Admit to [facility] -PT/OT consults -Lives at home by herself, CM consult for discharge planning -Fall precautions -Pain control with kpad, tylenol, voltaren gel, dilaudid 0.5 mg IV prn breakthrough pain -Imaging reviewed which revealed no fractures plan for [facility] once she is accepted (3) Hypomagnesemia: -1.6 upon admission, replace via IV - Cont daily mag oxide (4) HTN (hypertension): -History of such, continue amlodipine 5 mg daily, Lasix 40 mg daily, clonidine 0.1 mg BID, lisinopril 40 mg daily, metoprolol succinate 100 mg HS (5) CHF (congestive heart failure): -Chronic, diastolic, appears euvolemic at present -Last echocardiogram August 2015: No concentric LVH, basal septum is thickened and angulated consistent with sigmoid septum 55 to 60%, normal left ventricular systolic function no wall motion abnormalities -Follows with Dr. Leyva as outpatient -Continue antihypertensives, Lasix (6) Anemia: - Stable, continue ferrous sulfate supplementation (7) Diabetes: -Continue Levemir 15 units subcu daily, Januvia -ISS with Accu-Cheks AC at bedtime -Last A1C: June 2017 = 13.4, recheck with a.m. lab monitor for hypoglycemia, no episodes (8) Asthma: -History of such (9) Arthritis: - Chronic - Add voltaren gel, kpad, and Tylenol scheduled, Dilaudid 0.5 mg Q3H prn for breakthrough pain (10) Subdural hematoma: - Hx of such in 2014, stable (11) DVT prophylaxis: - teds, Plavix CODE: DNR Dispo: From home, lives alone, will remain in the hospital x2 nights for rehab placement, CM to assist with discharge planning Admission and Anticipated Discharge Date Admission Date: September 26, 2019 Subjective patient sitting in her chair, very happy this morning c/o some pain in right and left shoulder, right hip no chest pain, no dyspnea, no fever/chills she is eating well we discussed going to [facility], she is very excited about that possibility reviewed images from her prior trip to the ED, reviewed CT of the femur, no fracture Review of Systems Review of Systems: All systems reviewed & are unremarkable except as noted in Subjective Musculoskeletal: + joint pain (shoulders, left hip) Physical Exam Constitutional: WD/WN, vitals as above Eyes: PERRL, conjunctivae normal, anicteric sclerae ENMT: external ear and nose normal, oropharynx normal Neck: trachea midline, no thyromegaly Respiratory: normal respiratory effort, lungs clear to auscultation Cardiovascular: RRR, no murmur, no edema Gastrointestinal (Abdomen): normal bowel sounds, soft, nontender, no hepatosplenomegaly Musculoskeletal: Head/Neck/Chest: normocephalic, head atraumatic and neck supple Extremities: extremities normal to inspection and + abnormal strength (generalized weakness); full ROM of extremities Skin: no rashes, warm and dry Neurologic: patellar DTR's 2+ bilat, sensation intact and PERRL, EOMI, accommodation nl, no face palsy, no dysarthria Psychiatric: A+Ox3, euthymic affect Lymphatic: no cervical or axillary lymphadenopathy Results & Data Results & Data ([facility]) Vital Signs (Past 12 Hours) Vital Signs Temp Pulse Resp BP Pulse Ox 09/27/19 07:09 37.9 C H 79 18 160/81 H 90 Laboratory Results Laboratory Results - last 24 hr 09/26/19 09/26/19 09/26/19 14:39 18:05 18:15 Sodium 139 Potassium 3.9 Chloride 105 Carbon Dioxide 30 Anion Gap 4.0 BUN 8 D Creatinine 0.74 Est Cr Clr Drug Dosing 68.5 Est GFR ( Amer) 91.9 Est GFR (Non-Af Amer) 79.3 BUN/Creatinine Ratio 11.4 Glucose 210 H POC Glucose 148 H Estimat Average Glucose Hemoglobin A1c Calcium 8.7 Magnesium 1.6 L Total Bilirubin 1.2 H AST 12 L ALT 17 Alkaline Phosphatase 116 Total Creatine Kinase 39 Troponin I < 0.015 Total Protein 7.3 Albumin 3.0 L Globulin 4.3 H Albumin/Globulin Ratio 0.7 L Vitamin B12 TSH 0.528 Urine Color Yellow Urine Appearance Clear Urine pH 6.5 Ur Specific [place] 1.010 Urine Protein Negative Urine Glucose (UA) Trace H Urine Ketones Negative Urine Blood Negative Urine Nitrite Negative Urine Bilirubin Negative Urine Urobilinogen Negative Ur Leukocyte Esterase Negative 09/26/19 09/27/1909/26/20 20:43 07:43 07:43 Sodium 137 Potassium 3.9 Chloride 104 Carbon Dioxide 31 Anion Gap 2.0 L BUN 12 Creatinine 0.75 Est Cr Clr Drug Dosing 67.6 Est GFR ( Amer) 90.4 Est GFR (Non-Af Amer) 78.0 BUN/Creatinine Ratio 16.4 Glucose 153 H POC Glucose 202 H Estimat Average Glucose 166 Hemoglobin A1c 7.4 H Calcium 8.0 L Magnesium 1.7 L Total Bilirubin AST ALT Alkaline Phosphatase Total Creatine Kinase Troponin I Total Protein Albumin Globulin Albumin/Globulin Ratio Vitamin B12 TSH Urine Color Urine Appearance Urine pH Ur Specific [place] Urine Protein Urine Glucose (UA) Urine Ketones Urine Blood Urine Nitrite Urine Bilirubin Urine Urobilinogen Ur Leukocyte Esterase 09/27/19 09/27/19 09/27/19 07:43 08:00 11:18 Sodium Potassium Chloride Carbon Dioxide Anion Gap BUN Creatinine Est Cr Clr Drug Dosing Est GFR ( Amer) Est GFR (Non-Af Amer) BUN/Creatinine Ratio Glucose POC Glucose 194 H 180 H Estimat Average Glucose Hemoglobin A1c Calcium Magnesium Total Bilirubin AST ALT Alkaline Phosphatase Total Creatine Kinase Troponin I Total Protein Albumin Globulin Albumin/Globulin Ratio Vitamin B12 270 TSH Urine Color Urine Appearance Urine pH Ur Specific [place] Urine Protein Urine Glucose (UA) Urine Ketones Urine Blood Urine Nitrite Urine Bilirubin Urine Urobilinogen Ur Leukocyte Esterase Medications Administered Current Inpatient Medications Acetaminophen (Acetaminophen 500 Mg Tab) 1,000 mg PO Q8H PRN PRN Reason: Moderate Pain Stop: 10/26/19 17:57 Amlodipine Besylate (Amlodipine Besylate 5 Mg Tab) 5 mg PO [facility] Stop: 10/27/19 08:59 Last Admin: 09/27/19 09:03 Dose: 5 mg Documented by: Aspirin (Aspirin 81 Mg Ectab) [facility] Stop: 10/27/19 08:59 Last Admin: 09/27/19 09:03 Dose: 81 mg Documented by: Clonidine HCl (Clonidine Hcl 0.1 Mg Tab) 0.1 mg PO BID [facility] Stop: 10/26/19 20:59 Last Admin: 09/27/19 09:04 Dose: 0.1 mg Documented by: Clopidogrel Bisulfate (Clopidogrel Bisulfate 75 Mg Tab) [facility] Stop: 10/27/19 08:59 Last Admin: 09/27/19 09:02 Dose: 75 mg Documented by: Dextrose (Dextrose 50% 50 Ml Syringe) 25 - 50 ml IV UD PRN; Protocol PRN Reason: Hypoglycemia Protocol Stop: 10/26/19 17:57 Diclofenac Sodium (Diclofenac Sod 1% Gel 100 Gm Tube) 4 gm EXT TID PRN PRN Reason: pain Stop: 10/26/19 20:59 Duloxetine HCl (Duloxetine Hcl 60 Mg Cap) 60 mg PO QAM [facility] Stop: 10/27/19 08:59 Last Admin: 09/27/19 09:03 Dose: 60 mg Documented by: Ferrous Sulfate (Ferrous Sulfate 325 Mg Tab) 325 mg PO BID [facility] Stop: 10/26/19 20:59 Last Admin: 09/27/19 09:05 Dose: 325 mg Documented by: Furosemide (Furosemide 40 Mg Tab) 40 mg PO QAM [facility] Stop: 10/27/19 08:59 Last Admin: 09/27/19 09:01 Dose: 40 mg Documented by: Gabapentin (Gabapentin 600 Mg Tab) 600 mg PO TID [facility] Stop: 10/26/19 20:59 Last Admin: 09/27/19 14:39 Dose: 600 mg Documented by: Glucagon (Glucagon For Inj 1 Mg Vial) 1 mg SQ UD PRN; Protocol PRN Reason: Hypoglycemia Protocol Stop: 10/26/19 17:57 Glucose (Glucose 10 Tabs/Tube) 4 - 8 tabs PO UD PRN; Protocol PRN Reason: Hypoglycemia Protocol Stop: 10/26/19 17:57 Glucose (Glucose 40% Gel 15 Gm Tube) 15 - 30 gm PO UD PRN; Protocol PRN Reason: Hypoglycemia Protocol Stop: 10/26/19 17:57 Hydromorphone HCl (Hydromorphone Inj 0.5 Mg/0.5 Ml Syr) 0.5 mg IV Q3H PRN PRN Reason: Pain Stop: 10/10/19 17:57 Last Admin: 09/27/19 03:04 Dose: 0.5 mg Documented by: Hydromorphone HCl (Hydromorphone Hcl 2 Mg Tab) 4 mg PO QID [facility] Stop: 10/10/19 21:39 Last Admin: 09/27/19 13:06 Dose: 4 mg Documented by: Insulin Aspart (Insulin Aspart 100 Units/Ml 3 Ml Pen) 0 units SC ACHS [facility] Stop: 09/15/20 18:29 Last Admin: 09/27/19 13:11 Dose: 4 units Documented by: Insulin Detemir (Insulin Detemir Flexpen/Flex Touch 100 Units/Ml 3ml) 15 units SQ DAILY [facility] Stop: 10/27/19 08:59 Last Admin: 09/27/19 09:15 Dose: 15 units Documented by: Lisinopril (Lisinopril 40 Mg Tab) 40 mg PO QAM [facility] Stop: 10/27/19 08:59 Last Admin: 09/27/19 09:05 Dose: 40 mg Documented by: Magnesium Oxide (Magnesium Oxide 400 Mg Tab) 400 mg PO QAM [facility]; Protocol Stop: 10/27/19 08:59 Last Admin: 09/27/19 09:04 Dose: 400 mg Documented by: Melatonin (Melatonin 3 Mg Tab) 9 mg PO [facility]; Protocol Stop: 10/26/19 21:59 Last Admin: 09/26/19 21:12 Dose: 9 mg Documented by: Metoprolol Succinate (Metoprolol Succ 50mg Ext Rel Tab) 100 mg PO [facility] Stop: 10/26/19 20:59 Last Admin: 09/26/19 21:12 Dose: 100 mg Documented by: Miscellaneous (Carbohydrates For Hypoglycemia ) 15 - 30 gm PO UD PRN PRN Reason: Hypoglycemia Protocol Stop: 10/26/19 17:57 Ondansetron HCl (Ondansetron Inj 2 Mg/Ml 2 Ml Vial) 4 mg IV Q4H PRN PRN Reason: Nausea And Vomiting Stop: 10/26/19 17:57 Pantoprazole Sodium (Pantoprazole 40 Mg Tab) 40 mg PO BID [facility] Stop: 10/27/19 08:59 Last Admin: 09/27/19 09:01 Dose: 40 mg Documented by: Rosuvastatin Calcium (Rosuvastatin Calcium 20 Mg Tab) 20 mg PO [facility] Stop: 10/26/19 20:59 Last Admin: 09/26/19 21:12 Dose: 20 mg Documented by: PG Care Time/CCT Total # of Minutes Spent Total Time Spent with Patient: Total time spent is greater than 50% in coordination of care (as documented) at patient's floor/unit and/or counseling patient: Coding Level of Care Code 12055 Subseq Hosp Care Lvl 2 Diagnoses Fall W19.XXXA Encounter type: initial encounter Weakness R53.1 Hypomagnesemia E83.42 HTN (hypertension) I10 Hypertension type: essential hypertension CHF (congestive heart failure) I50.9 Anemia D64.9 Diabetes E11.9 Asthma J45.909 Arthritis M19.90 Subdural hematoma S06.5X9A DVT prophylaxis Z29.9 (1) HTN (hypertension) Hypertension type: essential hypertension Qualified Code(s): I10 - Essential (primary) hypertension (2) Fall Encounter type: initial encounter Qualified Code(s): W19.XXXA - Unspecified fall, initial encounter
[2019-09-27] MEDS: ROSUVASTATIN CALCIUM 20 MG TAB PO SCH (21:39)
[2019-09-27] MEDS: METOPROLOL SUCC 50MG EXT REL TAB PO SCH (21:40)
[2019-09-27] MEDS: MELATONIN 3 MG TAB PO SCH (21:40)
[2019-09-28] MEDS: INSULIN ASPART 100 UNITS/ML 3 ML PEN SC SCH ×4 (08:13→21:16)
[2019-09-28] MEDS: INSULIN DETEMIR FLEXPEN/FLEX TOUCH 100 UNITS/ML 3ML SQ SCH (08:13)
[2019-09-28] MEDS: GABAPENTIN 600 MG TAB PO SCH ×3 (08:14→21:30)
[2019-09-28] MEDS: FERROUS SULFATE 325 MG TAB PO SCH ×2 (08:14→21:33)
[2019-09-28] MEDS: PANTOprazole 40 MG TAB PO SCH ×2 (08:14→21:30)
[2019-09-28] MEDS: cloNIDine HCL 0.1 MG TAB PO SCH ×2 (08:14→21:30)
[2019-09-28] MEDS: ASPIRIN 81 MG ECTAB PO SCH (08:15)
[2019-09-28] MEDS: CLOPIDOGREL BISULFATE 75 MG TAB PO SCH (08:15)
[2019-09-28] MEDS: lisinopriL 40 MG TAB PO SCH (08:15)
[2019-09-28] MEDS: MAGNESIUM OXIDE 400 MG TAB PO SCH (08:15)
[2019-09-28] MEDS: AMLODIPINE BESYLATE 5 MG TAB PO SCH (08:15)
[2019-09-28] MEDS: FUROSEMIDE 40 MG TAB PO SCH (08:15)
[2019-09-28] MEDS: DULOXETINE HCL 60 MG CAP PO SCH (08:15)
[2019-09-28] MEDS: HYDROmorphone HCL 2 MG TAB PO SCH ×4 (08:21→21:33)
--- NOTE | 2019-09-28 17:18 | Hospitalist Progress Note ---
Date of Service September 28, 2019 Assessment & Plan (1) Fall: fell two days prior to admission patient is weak, needs to go to rehab plan for [facility] tomorrow (2) Weakness: -Admit to [facility] -PT/OT consults -Lives at home by herself, CM consult for discharge planning -Fall precautions -Pain control with kpad, tylenol, voltaren gel, dilaudid 0.5 mg IV prn breakthrough pain -Imaging reviewed which revealed no fractures plan for [facility] once she is accepted, likely tomorrow (3) Hypomagnesemia: -1.6 upon admission, replace via IV - Cont daily mag oxide (4) HTN (hypertension): -History of such, continue amlodipine 5 mg daily, Lasix 40 mg daily, clonidine 0.1 mg BID, lisinopril 40 mg daily, metoprolol succinate 100 mg HS BP low normal today (5) CHF (congestive heart failure): -Chronic, diastolic, continues to examine euvolemic -Last echocardiogram August 2015: No concentric LVH, basal septum is thickened and angulated consistent with sigmoid septum 55 to 60%, normal left ventricular systolic function no wall motion abnormalities -Follows with Dr. Leyva as outpatient -Continue antihypertensives, Lasix (6) Anemia: - Stable, continue ferrous sulfate supplementation (7) Diabetes: -Continue Levemir 15 units subcu daily, Januvia -ISS with Accu-Cheks AC at bedtime -Last A1C: June 2017 = 13.4, recheck with a.m. lab monitor for hypoglycemia, no episodes today, eating well (8) Asthma: -History of such (9) Arthritis: - Chronic - Add voltaren gel, kpad, and Tylenol scheduled, Dilaudid 0.5 mg Q3H prn for breakthrough pain (10) Subdural hematoma: - Hx of such in 2014, stable (11) DVT prophylaxis: - teds, Plavix CODE: DNR Dispo: From home, lives alone, will remain in the hospital x2 nights for rehab placement, CM to assist with discharge planning Admission and Anticipated Discharge Date Admission Date: September 26, 2019 Subjective patient doing okay today, participating in therapy, admits that she is very weak she has pain in left hip, bothering her her appetite is good, eating nearly all her food d/w CM, working on getting to [facility], likely tomorrow Review of Systems Review of Systems: All systems reviewed & are unremarkable except as noted in Subjective Musculoskeletal: + joint pain (bilateral shoulder, left hip) Physical Exam Constitutional: WD/WN, vitals as above Eyes: PERRL, conjunctivae normal, anicteric sclerae ENMT: external ear and nose normal, oropharynx normal Neck: trachea midline, no thyromegaly Respiratory: normal respiratory effort, lungs clear to auscultation Cardiovascular: RRR, no murmur, no edema Gastrointestinal (Abdomen): normal bowel sounds, soft, nontender, no hepatosplenomegaly Musculoskeletal: Head/Neck/Chest: normocephalic, head atraumatic and neck supple Extremities: extremities normal to inspection and + abnormal strength (generalized weakness); full ROM of extremities Skin: no rashes, warm and dry Neurologic: patellar DTR's 2+ bilat, sensation intact and PERRL, EOMI, accommodation nl, no face palsy, no dysarthria Psychiatric: A+Ox3, euthymic affect Lymphatic: no cervical or axillary lymphadenopathy Results & Data Results & Data ([facility]) Vital Signs (Past 12 Hours) Vital Signs Temp Pulse Resp BP BP Pulse Ox 09/28/19 15:19 36.5 C 59 L 19 109/61 92 09/28/19 07:12 36.6 C 60 18 124/70 94 Laboratory Results Laboratory Results - last 24 hr 09/27/19 09/28/19 09/28/19 20:52 07:47 11:46 POC Glucose 159 H 179 H 190 H 09/28/19 16:33 POC Glucose 94 Medications Administered Current Inpatient Medications Acetaminophen (Acetaminophen 500 Mg Tab) 1,000 mg PO Q8H PRN PRN Reason: Moderate Pain Stop: 10/26/19 17:57 Amlodipine Besylate (Amlodipine Besylate 5 Mg Tab) [facility] Stop: 10/27/19 08:59 Last Admin: 09/28/19 08:15 Dose: 5 mg Documented by: Aspirin (Aspirin 81 Mg Ectab) 81 mg PO QAM [facility] Stop: 10/27/19 08:59 Last Admin: 09/28/19 08:15 Dose: 81 mg Documented by: Clonidine HCl (Clonidine Hcl 0.1 Mg Tab) 0.1 mg PO BID [facility] Stop: 10/26/19 20:59 Last Admin: 09/28/19 08:14 Dose: 0.1 mg Documented by: Clopidogrel Bisulfate (Clopidogrel Bisulfate 75 Mg Tab) 75 mg PO QAM [facility] Stop: 10/27/19 08:59 Last Admin: 09/28/19 08:15 Dose: 75 mg Documented by: Dextrose (Dextrose 50% 50 Ml Syringe) 25 - 50 ml IV UD PRN; Protocol PRN Reason: Hypoglycemia Protocol Stop: 10/26/19 17:57 Diclofenac Sodium (Diclofenac Sod 1% Gel 100 Gm Tube) 4 gm EXT TID PRN PRN Reason: pain Stop: 10/26/19 20:59 Duloxetine HCl (Duloxetine Hcl 60 Mg Cap) 60 mg PO QAM [facility] Stop: 10/27/19 08:59 Last Admin: 09/28/19 08:15 Dose: 60 mg Documented by: Ferrous Sulfate (Ferrous Sulfate 325 Mg Tab) 325 mg PO BID [facility] Stop: 10/26/19 20:59 Last Admin: 09/28/19 08:14 Dose: 325 mg Documented by: Furosemide (Furosemide 40 Mg Tab) 40 [facility] Stop: 10/27/19 08:59 Last Admin: 09/28/19 08:15 Dose: 40 mg Documented by: Gabapentin (Gabapentin 600 Mg Tab) 600 mg PO TID [facility] Stop: 10/26/19 20:59 Last Admin: 09/28/19 13:21 Dose: 600 mg Documented by: Glucagon (Glucagon For Inj 1 Mg Vial) 1 mg SQ UD PRN; Protocol PRN Reason: Hypoglycemia Protocol Stop: 10/26/19 17:57 Glucose (Glucose 10 Tabs/Tube) 4 - 8 tabs PO UD PRN; Protocol PRN Reason: Hypoglycemia Protocol Stop: 10/26/19 17:57 Glucose (Glucose 40% Gel 15 Gm Tube) 15 - 30 gm PO UD PRN; Protocol PRN Reason: Hypoglycemia Protocol Stop: 10/26/19 17:57 Hydromorphone HCl (Hydromorphone Inj 0.5 Mg/0.5 Ml Syr) 0.5 mg IV Q3H PRN PRN Reason: Pain Stop: 10/10/19 17:57 Last Admin: 09/27/19 03:04 Dose: 0.5 mg Documented by: Hydromorphone HCl (Hydromorphone Hcl 2 Mg Tab) 4 mg PO QID [facility] Stop: 10/10/19 21:39 Last Admin: 09/28/19 13:21 Dose: 4 mg Documented by: Insulin Aspart (Insulin Aspart 100 Units/Ml 3 Ml Pen) 0 units SC ACHS [facility] Stop: 10/26/19 18:29 Last Admin: 09/28/19 12:06 Dose: 5 units Documented by: Insulin Detemir (Insulin Detemir Flexpen/Flex Touch 100 Units/Ml 3ml) 15 units SQ DAILY [facility] Stop: 10/27/19 08:59 Last Admin: 09/28/19 08:13 Dose: 15 units Documented by: Lisinopril (Lisinopril 40 Mg Tab) 40 mg PO QAM [facility] Stop: 10/27/19 08:59 Last Admin: 09/28/19 08:15 Dose: 40 mg Documented by: Magnesium Oxide (Magnesium Oxide 400 Mg Tab) 400 mg PO QAM [facility]; Protocol Stop: 10/27/19 08:59 Last Admin: 09/28/19 08:15 Dose: 400 mg Documented by: Melatonin (Mel[facility] 3 Mg Tab) [facility]; Protocol Stop: 10/26/19 21:59 Last Admin: 09/27/19 21:40 Dose: 9 mg Documented by: Metoprolol Succinate (Metoprolol Succ 50mg Ext Rel Tab) 100 mg PO [facility] Stop: 10/26/19 20:59 Last Admin: 09/27/19 21:40 Dose: 100 mg Documented by: Miscellaneous (Carbohydrates For Hypoglycemia ) 15 - 30 gm PO UD PRN PRN Reason: Hypoglycemia Protocol Stop: 10/26/19 17:57 Ondansetron HCl (Ondansetron Inj 2 Mg/Ml 2 Ml Vial) 4 mg IV Q4H PRN PRN Reason: Nausea And Vomiting Stop: 10/26/19 17:57 Pantoprazole Sodium (Pantoprazole 40 Mg Tab) 40 mg PO BID [facility] Stop: 10/27/19 08:59 Last Admin: 09/28/19 08:14 Dose: 40 mg Documented by: Rosuvastatin Calcium (Rosuvastatin Calcium 20 Mg Tab) 20 mg PO HS [facility] Stop: 10/26/19 20:59 Last Admin: 09/27/19 21:39 Dose: 20 mg Documented by: PG Care Time/CCT Total # of Minutes Spent Total Time Spent with Patient: Total time spent is greater than 50% in coordination of care (as documented) at patient's floor/unit and/or counseling patient: Coding Level of Care Code 46888 Subseq Hosp Care Lvl 2 Diagnoses Fall W19.XXXA Encounter type: initial encounter Weakness R53.1 Hypomagnesemia E83.42 HTN (hypertension) I10 Hypertension type: essential hypertension CHF (congestive heart failure) I50.9 Anemia D64.9 Diabetes E11.9 Asthma J45.909 Arthritis M19.90 Subdural hematoma S06.5X9A DVT prophylaxis Z29.9 (1) HTN (hypertension) Hypertension type: essential hypertension Qualified Code(s): I10 - Essential (primary) hypertension (2) Fall Encounter type: initial encounter Qualified Code(s): W19.XXXA - Unspecified fall, initial encounter
[2019-09-28] MEDS: MELATONIN 3 MG TAB PO SCH (21:30)
[2019-09-28] MEDS: ROSUVASTATIN CALCIUM 20 MG TAB PO SCH (21:30)
[2019-09-28] MEDS: METOPROLOL SUCC 50MG EXT REL TAB PO SCH (21:33)
[2019-09-28] MEDS: DOCUSATE SODIUM 100 MG CAP PO SCH (22:19)
[2019-09-29] MEDS: HYDROmorphone INJ 0.5 MG/0.5 ML SYR IV PRN (06:37)
[2019-09-29] MEDS: FUROSEMIDE 40 MG TAB PO SCH (08:03)
[2019-09-29] MEDS: CLOPIDOGREL BISULFATE 75 MG TAB PO SCH (08:04)
[2019-09-29] MEDS: MAGNESIUM OXIDE 400 MG TAB PO SCH (08:04)
[2019-09-29] MEDS: cloNIDine HCL 0.1 MG TAB PO SCH ×2 (08:05→20:52)
[2019-09-29] MEDS: lisinopriL 40 MG TAB PO SCH (08:05)
[2019-09-29] MEDS: PANTOprazole 40 MG TAB PO SCH ×2 (08:05→20:52)
[2019-09-29] MEDS: FERROUS SULFATE 325 MG TAB PO SCH ×2 (08:05→20:51)
[2019-09-29] MEDS: DULOXETINE HCL 60 MG CAP PO SCH (08:05)
[2019-09-29] MEDS: ASPIRIN 81 MG ECTAB PO SCH (08:06)
[2019-09-29] MEDS: GABAPENTIN 600 MG TAB PO SCH ×3 (08:06→20:55)
[2019-09-29] MEDS: AMLODIPINE BESYLATE 5 MG TAB PO SCH (08:13)
[2019-09-29] MEDS: HYDROmorphone HCL 2 MG TAB PO SCH ×4 (08:13→20:57)
[2019-09-29] MEDS: INSULIN DETEMIR FLEXPEN/FLEX TOUCH 100 UNITS/ML 3ML SQ SCH (08:55)
[2019-09-29] MEDS: INSULIN ASPART 100 UNITS/ML 3 ML PEN SC SCH ×4 (08:55→20:50)
--- NOTE | 2019-09-29 16:54 | Hospitalist Progress Note ---
Date of Service September 29, 2019 Assessment & Plan (1) Fall: fell two days prior to admission patient is weak, needs to go to rehab plan for [facility], requested authorization today (2) Weakness: -Admit to [facility] -PT/OT consults -Lives at home by herself, CM consult for discharge planning -Fall precautions -Pain control with kpad, tylenol, voltaren gel, dilaudid 0.5 mg IV prn breakthrough pain -Imaging reviewed which revealed no fractures plan for [facility] once she is accepted, likely tomorrow (3) Hypomagnesemia: -1.6 upon admission, replace via IV - Cont daily mag oxide (4) HTN (hypertension): -History of such, continue amlodipine 5 mg daily, Lasix 40 mg daily, clonidine 0.1 mg BID, lisinopril 40 mg daily, metoprolol succinate 100 mg HS BP low normal today (5) CHF (congestive heart failure): -Chronic, diastolic, continues to examine euvolemic -Last echocardiogram August 2015: No concentric LVH, basal septum is thickened and angulated consistent with sigmoid septum 55 to 60%, normal left ventricular systolic function no wall motion abnormalities -Follows with Dr. Leyva as outpatient -Continue antihypertensives, Lasix (6) Anemia: - Stable, continue ferrous sulfate supplementation (7) Diabetes: -Continue Levemir 15 units subcu daily, Januvia -ISS with Accu-Cheks AC at bedtime -Last A1C: June 2017 = 13.4, recheck with a.m. lab monitor for hypoglycemia, no episodes today, sugars in 140-160 range (8) Asthma: -History of such (9) Arthritis: - Chronic - Add voltaren gel, kpad, and Tylenol scheduled, Dilaudid 0.5 mg Q3H prn for breakthrough pain (10) Subdural hematoma: - Hx of such in 2014, stable (11) DVT prophylaxis: - teds, Plavix CODE: DNR Dispo: From home, lives alone, will remain in the hospital x2 nights for rehab placement, CM to assist with discharge planning (12) Constipation: already on Colace will add Dulcolax 5mg PO qAM starting tomorrow staying well hydrated Admission and Anticipated Discharge Date Admission Date: September 26, 2019 Subjective patient doing okay today still with pain in left upper leg, doing okay with therapy she is excited about prospect of [address] she is eating well no BM since admission, discussed this, will give Dulcolax as she uses this at home Review of Systems Review of Systems: All systems reviewed & are unremarkable except as noted in Subjective Gastrointestinal: + constipation Musculoskeletal: + joint pain (right hip) Physical Exam Constitutional: WD/WN, vitals as above Eyes: PERRL, conjunctivae normal, anicteric sclerae ENMT: external ear and nose normal, oropharynx normal Neck: trachea midline, no thyromegaly Respiratory: normal respiratory effort, lungs clear to auscultation Cardiovascular: RRR, no murmur, no edema Gastrointestinal (Abdomen): normal bowel sounds, soft, nontender, no hepatosplenomegaly Musculoskeletal: Head/Neck/Chest: normocephalic, head atraumatic and neck supple Extremities: extremities normal to inspection and + abnormal strength (generalized weakness); full ROM of extremities Skin: no rashes, warm and dry Neurologic: patellar DTR's 2+ bilat, sensation intact and PERRL, EOMI, acc ommodation nl, no face palsy, no dysarthria Psychiatric: A+Ox3, euthymic affect Lymphatic: no cervical or axillary lymphadenopathy Results & Data Results & [facility] Vital Signs (Past 12 Hours) Vital Signs Temp Pulse Resp BP Pulse Ox 09/29/19 16:05 36.8 C 61 18 91/44 L 92 09/29/19 07:16 36.6 C 58 L 18 115/66 95 Laboratory Results Laboratory Results - last 24 hr 09/28/19 09/29/19 09/29/19 20:27 07:29 11:51 POC Glucose 151 H 154 H 100 H 09/29/19 16:39 POC Glucose 146 H Medications Administered Current Inpatient Medications Acetaminophen (Acetaminophen 500 Mg Tab) 1,000 mg PO Q8H PRN PRN Reason: Moderate Pain Stop: 10/26/19 17:57 Amlodipine Besylate (Amlodipine Besylate 5 Mg Tab) 5 mg PO [facility] Stop: 10/27/19 08:59 Last Admin: 09/29/19 08:13 Dose: 5 mg Documented by: Aspirin (Aspirin 81 Mg Ectab) 81 mg PO [facility] Stop: 10/27/19 08:59 Last Admin: 09/29/19 08:06 Dose: 81 mg Documented by: Clonidine HCl (Clonidine Hcl 0.1 Mg Tab) 0.1 mg PO BID [facility] Stop: 10/26/19 20:59 Last Admin: 09/29/19 08:05 Dose: 0.1 mg Documented by: Clopidogrel Bisulfate (Clopidogrel Bisulfate 75 Mg Tab) 75 mg PO QAM [facility] Stop: 10/27/19 08:59 Last Admin: 09/29/19 08:04 Dose: 75 mg Documented by: Dextrose (Dextrose 50% 50 Ml Syringe) 25 - 50 ml IV UD PRN; Protocol PRN Reason: Hypoglycemia Protocol Stop: 10/26/19 17:57 Diclofenac Sodium (Diclofenac Sod 1% Gel 100 Gm Tube) 4 gm EXT TID PRN PRN Reason: pain Stop: 10/26/19 20:59 Docusate Sodium (Docusate Sodium 100 Mg Cap) 100 mg PO PM [facility] Stop: 10/28/19 22:14 Last Admin: 09/28/19 22:19 Dose: 100 mg Documented by: Duloxetine HCl (Duloxetine Hcl 60 Mg Cap) 60 mg PO QAM [facility] Stop: 10/27/19 08:59 Last Admin: 09/29/19 08:05 Dose: 60 mg Documented by: Ferrous Sulfate (Ferrous Sulfate 325 Mg Tab) 325 mg PO BID [facility] Stop: 10/26/19 20:59 Last Admin: 09/29/19 08:05 Dose: 325 mg Documented by: Furosemide (Furosemide 40 Mg Tab) 40 mg PO QAM [facility] Stop: 10/27/19 08:59 Last Admin: 09/29/19 08:03 Dose: 40 mg Documented by: Gabapentin (Gabapentin 600 Mg Tab) 600 mg PO TID [facility] Stop: 10/26/19 20:59 Last Admin: 09/29/19 14:41 Dose: 600 mg Documented by: Glucagon (Glucagon For Inj 1 Mg Vial) 1 mg SQ UD PRN; Protocol PRN Reason: Hypoglycemia Protocol Stop: 10/26/19 17:57 Glucose (Glucose 10 Tabs/Tube) 4 - 8 tabs PO UD PRN; Protocol PRN Reason: Hypoglycemia Protocol Stop: 10/26/19 17:57 Glucose (Glucose 40% Gel 15 Gm Tube) 15 - 30 gm PO UD PRN; Protocol PRN Reason: Hypoglycemia Protocol Stop: 10/26/19 17:57 Hydromorphone HCl (Hydromorphone Inj 0.5 Mg/0.5 Ml Syr) 0.5 mg IV Q3H PRN PRN Reason: Pain Stop: 10/10/19 17:57 Last Admin: 09/29/19 06:37 Dose: 0.5 mg Documented by: Hydromorphone HCl (Hydromorphone Hcl 2 Mg Tab) 4 mg PO QID [facility] Stop: 10/10/19 21:39 Last Admin: 09/29/19 12:21 Dose: 4 mg Documented by: Insulin Aspart (Insulin Aspart 100 Units/Ml 3 Ml Pen) 0 units SC ACHS [facility] Stop: 10/26/19 18:29 Last Admin: 09/29/19 12:17 Dose: 3 units Documented by: Insulin Detemir (Insulin Detemir Flexpen/Flex Touch 100 Units/Ml 3ml) 15 units SQ DAILY [facility] Stop: 10/27/19 08:59 Last Admin: 09/29/19 08:55 Dose: 15 units Documented by: Lisinopril (Lisinopril 40 Mg Tab) [facility] Stop: 10/27/19 08:59 Last Admin: 09/29/19 08:05 Dose: 40 mg Documented by: Magnesium Oxide (Magnesium Oxide 400 Mg Tab) 400 mg PO [facility]; Protocol Stop: 10/27/19 08:59 Last Admin: 09/29/19 08:04 Dose: 400 mg Documented by: Melatonin (Melatonin 3 Mg Tab) 9 mg PO [facility]; Protocol Stop: 10/26/19 21:59 Last Admin: 09/28/19 21:30 Dose: 9 mg Documented by: Metoprolol Succinate (Metoprolol Succ 50mg Ext Rel Tab) 100 mg PO [facility] Stop: 10/26/19 20:59 Last Admin: 09/28/19 21:33 Dose: Not Given Documented by: Miscellaneous (Carbohydrates For Hypoglycemia ) 15 - 30 gm PO UD PRN PRN Reason: Hypoglycemia Protocol Stop: 10/26/19 17:57 Ondansetron HCl (Ondansetron Inj 2 Mg/Ml 2 Ml Vial) 4 mg IV Q4H PRN PRN Reason: Nausea And Vomiting Stop: 10/26/19 17:57 Pantoprazole Sodium (Pantoprazole 40 Mg Tab) 40 mg PO BID [facility] Stop: 10/27/19 08:59 Last Admin: 09/29/19 08:05 Dose: 40 mg Documented by: Rosuvastatin Calcium (Rosuvastatin Calcium 20 Mg Tab) 20 mg PO HS [facility] Stop: 10/26/19 20:59 Last Admin: 09/28/19 21:30 Dose: 20 mg Documented by: PG Care Time/CCT Total # of Minutes Spent Total Time Spent with Patient: Total time spent is greater than 50% in coordination of care (as documented) at patient's floor/unit and/or counseling patient: Coding Level of Care Code 37242 Subseq Hosp Care Lvl 2 Diagnoses Fall W19.XXXA Encounter type: initial encounter Weakness R53.1 Hypomagnesemia E83.42 HTN (hypertension) I10 Hypertension type: essential hypertension CHF (congestive heart failure) I50.9 Anemia D64.9 Diabetes E11.9 Asthma J45.909 Arthritis M19.90 Subdural hematoma S06.5X9A DVT prophylaxis Z29.9 Constipation K59.00 (1) HTN (hypertension) Hypertension type: essential hypertension Qualified Code(s): I10 - Essential (primary) hypertension (2) Fall Encounter type: initial encounter Qualified Code(s): W19.XXXA - Unspecified fall, initial encounter
[2019-09-29] MEDS: DOCUSATE SODIUM 100 MG CAP PO SCH (20:51)
[2019-09-29] MEDS: ROSUVASTATIN CALCIUM 20 MG TAB PO SCH (20:52)
[2019-09-29] MEDS: METOPROLOL SUCC 50MG EXT REL TAB PO SCH (20:52)
[2019-09-29] MEDS: MELATONIN 3 MG TAB PO SCH (20:59)
[2019-09-29] MEDS ORDERED: bisacodyL 5 MG TABEC PO PRN (22:07)
[2019-09-30] MEDS: HYDROmorphone HCL 2 MG TAB PO SCH ×4 (07:32→21:16)
[2019-09-30] MEDS: AMLODIPINE BESYLATE 5 MG TAB PO SCH (07:33)
[2019-09-30] MEDS: PANTOprazole 40 MG TAB PO SCH ×2 (07:33→21:16)
[2019-09-30] MEDS: CLOPIDOGREL BISULFATE 75 MG TAB PO SCH (07:34)
[2019-09-30] MEDS: FUROSEMIDE 40 MG TAB PO SCH (07:34)
[2019-09-30] MEDS: DULOXETINE HCL 60 MG CAP PO SCH (07:34)
[2019-09-30] MEDS: FERROUS SULFATE 325 MG TAB PO SCH ×2 (07:34→21:19)
[2019-09-30 07:35] LABS: Hematocrit (blood only) 34.8 % (37-47); Hemoglobin 11.5 g/dL (12.0-16.0); Mean Corpuscular Volume 93.8 fL (80-100); Mean Platelet Volume 10.2 fL (7.4-10.4); Platelet Count 210 K/uL (130-400); RDW Coefficient of Variation 14.4 % (11.5-14.5); RDW Standard Deviation 49.4 fL (36.4-46.3); Red Blood Count 3.71 M/uL (4.2-5.4)
[2019-09-30] MEDS: lisinopriL 40 MG TAB PO SCH (07:35)
[2019-09-30] MEDS: ASPIRIN 81 MG ECTAB PO SCH (07:35)
[2019-09-30] MEDS: cloNIDine HCL 0.1 MG TAB PO SCH ×2 (07:35→21:17)
[2019-09-30] MEDS: MAGNESIUM OXIDE 400 MG TAB PO SCH (07:35)
[2019-09-30] MEDS: GABAPENTIN 600 MG TAB PO SCH ×3 (07:36→21:17)
[2019-09-30] MEDS: INSULIN DETEMIR FLEXPEN/FLEX TOUCH 100 UNITS/ML 3ML SQ SCH (07:39)
[2019-09-30] MEDS: INSULIN ASPART 100 UNITS/ML 3 ML PEN SC SCH ×4 (07:41→21:37)
[2019-09-30 08:09] LABS: BUN Creatinine Ratio 26.2 (10-20); Calcium 9.2 mg/dl (8.5-10.1); Est GFR (African American) 73.5; Est GFR (Non-African American) 63.4; Potassium 4.2 mmol/L (3.5-5.1)
[2019-09-30] MEDS: HYDROmorphone INJ 0.5 MG/0.5 ML SYR IV PRN (15:52)
[2019-09-30] MEDS: ROSUVASTATIN CALCIUM 20 MG TAB PO SCH (21:16)
[2019-09-30] MEDS: MELATONIN 3 MG TAB PO SCH (21:17)
[2019-09-30] MEDS: DOCUSATE SODIUM 100 MG CAP PO SCH (21:18)
[2019-09-30] MEDS: METOPROLOL SUCC 50MG EXT REL TAB PO SCH (21:18)
--- NOTE | 2019-09-30 23:57 | Hospitalist Progress Note ---
Date of Service September 30, 2019 Assessment & Plan (1) Fall: fell two days prior to admission patient is weak, needs to go to rehab plan for [facility] because [facility] cannot accept COVID 19 screen is NEGATIVE (2) Weakness: -Admit to [facility] [place] -PT/OT consults -Lives at home by herself, CM consult for discharge planning -Fall precautions -Pain control with kpad, tylenol, voltaren gel, Dilaudid PO, dilaudid 0.5 mg IV prn breakthrough pain -Imaging reviewed which revealed no fractures plan for [facility] once she is accepted, likely tomorrow (3) Hypomagnesemia: -1.6 upon admission, replace via IV, now normal - Cont daily mag oxide (4) HTN (hypertension): -History of such, continue amlodipine 5 mg daily, Lasix 40 mg daily, clonidine 0.1 mg BID, lisinopril 40 mg daily, metoprolol succinate 100 mg HS BP stable (5) CHF (congestive heart failure): -Chronic, diastolic, continues to examine euvolemic -Last echocardiogram August 2015: No concentric LVH, basal septum is thickened and angulated consistent with sigmoid septum 55 to 60%, normal left ventricular systolic function no wall motion abnormalities -Follows with Dr. Leyva as outpatient -Continue antihypertensives, Lasix (6) Anemia: - Stable, continue ferrous sulfate supplementation (7) Diabetes: -Continue Levemir 15 units subcu daily, Januvia -ISS with Accu-Cheks AC at bedtime -Last A1C: June 2017 = 13.4, recheck with a.m. lab monitor for hypoglycemia, no episodes thus far, she is eating well (8) Asthma: -History of such (9) Arthritis: - Chronic - Add voltaren gel, kpad, and Tylenol scheduled, Dilaudid 0.5 mg Q3H prn for breakthrough pain (10) Subdural hematoma: - Hx of such in 2014, stable (11) Constipation: already on Colace no results with Dulcolax will give her Miralax Admission and Anticipated Discharge Date Admission Date: September 26, 2019 Subjective no major issues today discussed going to SNF tomorrow for rehab she is eating well has pain in right leg c/o constipation, the Dulcolax did not work, will give her Miralax Review of Systems Review of Systems: All systems reviewed & are unremarkable except as noted in Subjective Constitutional: + weakness; no fever, no chills, no sweats and no fatigue Respiratory: no cough and no dyspnea Cardiovascular: no chest pain and no edema Gastrointestinal: + constipation; no abdominal pain, no nausea, no vomiting and no diarrhea/loose stools Genitourinary: no dysuria Musculoskeletal: + joint pain (right hip radiating to right knee) Physical Exam Constitutional: WD/WN, vitals as above Eyes: PERRL, conjunctivae normal, anicteric sclerae ENMT: external ear and nose normal, oropharynx normal Neck: trachea midline, no thyromegaly Respiratory: normal respiratory effort, lungs clear to auscultation Cardiovascular: RRR, no murmur, no edema Gastrointestinal (Abdomen): normal bowel sounds, soft, nontender, no hepatosplenomegaly Musculoskeletal: Head/Neck/Chest: normocephalic, head atraumatic and neck supple Extremities: extremities normal to inspection and + abnormal strength (generalized weakness); full ROM of extremities Skin: no rashes, warm and dry Neurologic: patellar DTR's 2+ bilat, sensation intact and PERRL, EOMI, accommodation nl, no face palsy, no dysarthria Psychiatric: A+Ox3, euthymic affect Lymphatic: no cervical or axillary lymphadenopathy Results & Data Results & Data ([facility]) Vital Signs (Past 12 Hours) Vital Signs Temp Pulse Resp BP Pulse Ox 09/30/19 23:00 37 C 55 L 20 107/62 94 09/30/19 15:53 36.6 C 65 20 118/64 90 Laboratory Results Laboratory Results - last 24 hr 09/30/19 09/30/19 09/30/19 07:22 07:22 07:31 WBC 7.20 RBC 3.71 L Hgb 11.5 L Hct 34.8 L MCV 93.8 MCH 31.0 MCHC 33.0 RDW Std Deviation 49.4 H RDW Coeff of Parish 14.4 Plt Count 210 MPV 10.2 Sodium 138 Potassium 4.2 Chloride 102 Carbon Dioxide 30 Anion Gap 6.0 BUN 23 H Creatinine 0.89 Est Cr Clr Drug Dosing 57.0 Est GFR ( Amer) 73.5 Est GFR (Non-Af Amer) 63.4 BUN/Creatinine Ratio 26.2 H Glucose 152 H POC Glucose 151 H Calcium 9.2 COVID-19 Eval Order SARS-CoV-2, RNA, NAAT 09/30/19 09/30/19 09/30/19 11:36 16:39 20:07 WBC RBC Hgb Hct MCV MCH MCHC RDW Std Deviation RDW Coeff of Parish Plt Count MPV Sodium Potassium Chloride Carbon Dioxide Anion Gap BUN Creatinine Est Cr Clr Drug Dosing Est GFR ( Amer) Est GFR (Non-Af Amer) BUN/Creatinine Ratio Glucose POC Glucose 159 H 96 105 H Calcium COVID-19 Eval Order SARS-CoV-2, RNA, NAAT 09/30/19 09/30/19 21:40 21:40 WBC RBC Hgb Hct MCV MCH MCHC RDW Std Deviation RDW Coeff of Parish Plt Count MPV Sodium Potassium Chloride Carbon Dioxide Anion Gap BUN Creatinine Est Cr Clr Drug Dosing Est GFR ( Amer) Est GFR (Non-Af Amer) BUN/Creatinine Ratio Glucose POC Glucose Calcium COVID-19 Eval [facility] SARS-CoV-2, RNA, NAAT NEGATIVE Medications Administered Current Inpatient Medications Acetaminophen (Acetaminophen 500 Mg Tab) 1,000 mg PO Q8H PRN PRN Reason: Moderate Pain Stop: 10/26/19 17:57 Amlodipine Besylate (Amlodipine Besylate 5 Mg Tab) 5 mg PO QAM BARRY Stop: 10/27/19 08:59 Last Admin: 09/30/19 07:33 Dose: 5 mg Documented by: Aspirin (Aspirin 81 Mg Ectab) 81 mg PO QAM BARRY Stop: 10/27/19 08:59 Last Admin: 09/30/19 07:35 Dose: 81 mg Documented by: Bisacodyl (Bisacodyl 5 Mg Tabec) 5 mg PO QAM PRN PRN Reason: Constipation Stop: 10/29/19 22:06 Clonidine HCl (Clonidine Hcl 0.1 Mg Tab) 0.1 mg PO BID BARRY Stop: 10/26/19 20:59 Last Admin: 09/30/19 21:17 Dose: 0.1 mg Documented by: Clopidogrel Bisulfate (Clopidogrel Bisulfate 75 Mg Tab) 75 mg PO QAM BARRY Stop: 10/27/19 08:59 Last Admin: 09/30/19 07:34 Dose: 75 mg Documented by: Dextrose (Dextrose 50% 50 Ml Syringe) 25 - 50 ml IV UD PRN; Protocol PRN Reason: Hypoglycemia Protocol Stop: 10/26/19 17:57 Diclofenac Sodium (Diclofenac Sod 1% Gel 100 Gm Tube) 4 gm EXT TID PRN PRN Reason: pain Stop: 10/26/19 20:59 Last Admin: 09/30/19 15:52 Dose: 4 gm Documented by: Docusate Sodium (Docusate Sodium 100 Mg Cap) 100 mg PO PM BARRY Stop: 10/28/19 22:14 Last Admin: 09/30/19 21:18 Dose: 100 mg Documented by: Duloxetine HCl (Duloxetine Hcl 60 Mg Cap) 60 mg PO QAM BARRY Stop: 10/27/19 08:59 Last Admin: 09/30/19 07:34 Dose: 60 mg Documented by: Ferrous Sulfate (Ferrous Sulfate 325 Mg Tab) 325 mg PO BID BARRY Stop: 10/26/19 20:59 Last Admin: 09/30/19 21:19 Dose: 325 mg Documented by: Furosemide (Furosemide 40 Mg Tab) 40 mg PO QAM BARRY Stop: 10/27/19 08:59 Last Admin: 09/30/19 07:34 Dose: 40 mg Documented by: Gabapentin (Gabapentin 600 Mg Tab) 600 mg PO TID BARRY Stop: 10/26/19 20:59 Last Admin: 09/30/19 21:17 Dose: 600 mg Documented by: Glucagon (Glucagon For Inj 1 Mg Vial) 1 mg SQ UD PRN; Protocol PRN Reason: Hypoglycemia Protocol Stop: 10/26/19 17:57 Glucose (Glucose 10 Tabs/Tube) 4 - 8 tabs PO UD PRN; Protocol PRN Reason: Hypoglycemia Protocol Stop: 10/26/19 17:57 Glucose (Glucose 40% Gel 15 Gm Tube) 15 - 30 gm PO UD PRN; Protocol PRN Reason: Hypoglycemia Protocol Stop: 10/26/19 17:57 Hydromorphone HCl (Hydromorphone Inj 0.5 Mg/0.5 Ml Syr) 0.5 mg IV Q3H PRN PRN Reason: Pain Stop: 10/10/19 17:57 Last Admin: 09/30/19 15:52 Dose: 0.5 mg Documented by: Hydromorphone HCl (Hydromorphone Hcl 2 Mg Tab) 4 mg PO QID BARRY Stop: 10/10/19 21:39 Last Admin: 09/30/19 21:16 Dose: 4 mg Documented by: Insulin Aspart (Insulin Aspart 100 Units/Ml 3 Ml Pen) 0 units SC ACHS [facility] Stop: 10/26/19 18:29 Last Admin: 09/30/19 21:37 Dose: Not Given Documented by: Insulin Detemir (Insulin Detemir Flexpen/Flex Touch 100 Units/Ml 3ml) 15 units SQ DAILY [facility] Stop: 10/27/19 08:59 Last Admin: 09/30/19 07:39 Dose: 15 units Documented by: Lisinopril (Lisinopril 40 Mg Tab) [facility] [place] Stop: 10/27/19 08:59 Last Admin: 09/30/19 07:35 Dose: 40 mg Documented by: Magnesium Oxide (Magnesium Oxide 400 Mg Tab) 400 mg PO [facility]; Protocol Stop: 10/27/19 08:59 Last Admin: 09/30/19 07:35 Dose: 400 mg Documented by: Melatonin (Melatonin 3 Mg Tab) 9 mg PO [facility]; Protocol Stop: 10/26/19 21:59 Last Admin: 09/30/19 21:17 Dose: 9 mg Documented by: Metoprolol Succinate (Metoprolol Succ 50mg Ext Rel Tab) 100 mg PO [facility] Stop: 10/26/19 20:59 Last Admin: 09/30/19 21:18 Dose: 100 mg Documented by: Miscellaneous (Carbohydrates For Hypoglycemia ) 15 - 30 gm PO UD PRN PRN Reason: Hypoglycemia Protocol Stop: 10/26/19 17:57 Ondansetron HCl (Ondansetron Inj 2 Mg/Ml 2 Ml Vial) 4 mg IV Q4H PRN PRN Reason: Nausea And Vomiting Stop: 10/26/19 17:57 Pantoprazole Sodium (Pantoprazole 40 Mg Tab) 40 mg PO BID [facility] Stop: 10/27/19 08:59 Last Admin: 09/30/19 21:16 Dose: 40 mg Documented by: Rosuvastatin Calcium (Rosuvastatin Calcium 20 Mg Tab) 20 mg PO [facility] Stop: 10/26/19 20:59 Last Admin: 09/30/19 21:16 Dose: 20 mg Documented by: PG Care Time/CCT Total # of Minutes Spent Total Time Spent with Patient: Total time spent is greater than 50% in coordination of care (as documented) at patient's floor/unit and/or counseling patient: Coding Level of Care Code 72368 Subseq Hosp Care Lvl 2 Diagnoses Fall W19.XXXA Encounter type: initial encounter Weakness R53.1 Hypomagnesemia E83.42 HTN (hypertension) I10 Hypertension type: essential hypertension CHF (congestive heart failure) I50.9 Anemia D64.9 Diabetes E11.9 Asthma J45.909 Arthritis M19.90 Subdural hematoma S06.5X9A Constipation K59.00 (1) HTN (hypertension) Hypertension type: essential hypertension Qualified Code(s): I10 - Essential (primary) hypertension (2) Fall Encounter type: initial encounter Qualified Code(s): W19.XXXA - Unspecified fall, initial encounter
[2019-10-01] MEDS: FERROUS SULFATE 325 MG TAB PO SCH (08:39)
[2019-10-01] MEDS: ASPIRIN 81 MG ECTAB PO SCH (08:39)
[2019-10-01] MEDS: CLOPIDOGREL BISULFATE 75 MG TAB PO SCH (08:40)
[2019-10-01] MEDS: cloNIDine HCL 0.1 MG TAB PO SCH (08:40)
[2019-10-01] MEDS: FUROSEMIDE 40 MG TAB PO SCH (08:40)
[2019-10-01] MEDS: GABAPENTIN 600 MG TAB PO SCH ×2 (08:40→12:14)
[2019-10-01] MEDS: AMLODIPINE BESYLATE 5 MG TAB PO SCH (08:40)
[2019-10-01] MEDS: lisinopriL 40 MG TAB PO SCH (08:41)
[2019-10-01] MEDS: MAGNESIUM OXIDE 400 MG TAB PO SCH (08:42)
[2019-10-01] MEDS: DULOXETINE HCL 60 MG CAP PO SCH (08:42)
[2019-10-01] MEDS: PANTOprazole 40 MG TAB PO SCH (08:42)
[2019-10-01] MEDS: HYDROmorphone HCL 2 MG TAB PO SCH ×2 (08:44→12:14)
[2019-10-01] MEDS ORDERED: POLYETHYLENE (MIRALAX) 17 GM PACK PO SCH (09:00)
[2019-10-01] MEDS: INSULIN DETEMIR FLEXPEN/FLEX TOUCH 100 UNITS/ML 3ML SQ SCH (09:04)
[2019-10-01] MEDS: INSULIN ASPART 100 UNITS/ML 3 ML PEN SC SCH ×2 (09:05→12:15)
--- NOTE | 2019-10-01 12:30 | Discharge Summary ---
Date of Service October 01, 2019 Admission HPI Per Admitting Provider This is a 74 yo F with PMhx of CHF, HTN, HLD, DM II, Asthma, falls, hx of subdural hematoma, DJD, DVT, gout who presents to the ER after a fall which she sustained 2 days ago. She was evaluated on 09/23 after sitting at the side of the bed and attempting to stand up, got lightheaded and then slid herself down to the ground against her bed. Once in the ER, no acute fractures were found and so was discharged. She reports sleeping all day yesterday and awoke this morning surprised that it was Friday whenever she came here to the ER. She notes her right hip has always given her issues, but it is significantly more painful today. She also has chronic pain involving the left shoulder. She feels as if she is so weak that she cannot do anything on her own, has been unable to stand up, and therefore requests rehab. She denies any other acute complaints. The patient lives at home by herself. Principal Diagnosis Fall at home with right leg pain Discharge Exam Constitutional WD/WN, vitals as above Eyes PERRL, conjunctivae normal, anicteric sclerae ENMT external ear and nose normal, oropharynx normal Neck trachea midline, no thyromegaly Respiratory normal respiratory effort, lungs clear to auscultation Cardiovascular RRR, no murmur, no edema Gastrointestinal (Abdomen) normal bowel sounds, soft, nontender, no hepatosplenomegaly Musculoskeletal Head/Neck/Chest: normocephalic, head atraumatic and neck supple Extremities: extremities normal to inspection and + abnormal strength (generalized weakness); full ROM of extremities Skin no rashes, warm and dry Neurologic patellar DTR's 2+ bilat, sensation intact and PERRL, EOMI, accommodation nl, no face palsy, no dysarthria Psychiatric A+Ox3, euthymic affect Lymphatic no cervical or axillary lymphadenopathy Discharge Data Allergies Allergy/AdvReac Type Severity Reaction Status Date / Time Cephalosporins Allergy Intermediate RINGING OF Verified 09/26/19 15:58 EARS,FALLING BALANCE ISSUES prochlorperazine Allergy Intermediate STROKE Verified 09/26/19 15:58 LIKE SYMPTOMS, CAN'T TALK linezolid AdvReac Intermediate diarrhea,vo Verified 09/26/19 15:58 miting tramadol AdvReac Intermediate UNSTEADY Verified 09/26/19 15:58 ON FEET, HYPERACTIVITY morphine AdvReac Unknown NOT Verified 09/26/19 15:58 EFFECTIVE Consultations 09/26/19 15:55 ED Decision to Admit Stat 09/26/19 17:58 Consult Case Management - Discharge Planning Routine Ordered Studies 09/26/19 14:15 CT femur RT wo con Stat Hospital Course (1) Fall: fell two days prior to admission patient is weak, needs to go to rehab plan for [facility], they could not accept will now go to [facility] for rehab (2) Weakness: -Admit to [facility] -PT/OT consults -Lives at home by herself, CM consult for discharge planning -Fall precautions -Pain control with kpad, tylenol, voltaren gel, dilaudid 0.5 mg IV prn breakthrough pain -Imaging reviewed which revealed no fractures d/c to [facility], continue to use Dilaudid PO for pain as she uses this at home (3) Hypomagnesemia: -1.6 upon admission, replace via IV - Cont daily mag oxide (4) HTN (hypertension): -History of such, continue amlodipine 5 mg daily, Lasix 40 mg daily, clonidine 0.1 mg BID, lisinopril 40 mg daily, metoprolol succinate 100 mg HS BP normal today (5) CHF (congestive heart failure): -Chronic, diastolic, continues to examine euvolemic -Last echocardiogram August 2015: No concentric LVH, basal septum is thickened and angulated consistent with sigmoid septum 55 to 60%, normal left ventricular systolic function no wall motion abnormalities -Follows with Dr. Leyva as outpatient -Continue antihypertensives, Lasix (6) Anemia: - Stable, continue ferrous sulfate supplementation (7) Diabetes: -Continue Levemir 15 units subcu daily, Januvia -ISS with Accu-Cheks AC at bedtime -Last A1C: June 2017 = 13.4, recheck with a.m. lab monitor for hypoglycemia, no episodes today, sugars in 140-160 range (8) Asthma: -History of such (9) Arthritis: - Chronic - Add voltaren gel, kpad, and Tylenol scheduled, Dilaudid 0.5 mg Q3H prn for breakthrough pain (10) Subdural hematoma: - Hx of such in 2015, stable (11) Constipation: already on Colace will add Dulcolax 5mg PO qAM starting tomorrow staying well hydrated Total Time Total Time Spent Total Time Spent (In Minutes): 22 minutes Total Time Includes: Examination of the Patient, Discharge Planning and Medication Reconciliation Discharge Plan Discharge Items Patient Disposition: Transfer [facility] Reason For Visit: S/P FALL,WEAKNESS,LEG PAIN Discharge Diagnosis: Weakness and fall at home Right leg pain, no fracture on CT scan Condition on Discharge: Good Goals: improve strength and mobility stay well nourished and well hydrated Activity: Resume your previous activity Weightbearing: Full weightbearing Non-emergency contact: Primary Care Provider Call non-emergency contact if: you have any medication questions and your pain is not controlled Follow-up/Referrals: Radha Gonzalez CRNP [Primary Care Provider] - (one week after discharge from SNF rehab) Diet: Carb Consistent or DM2 and Heart Healthy Addtl Attending Provider Instructions: Medications: - COLACE and DULCOLAX: she uses these at home to help keep her regular, continue - VOLTAREN: apply to right hip/thigh as needed for pain - DILAUDID: she takes this PO for pain, other medications do not work, she was just prescribed this dose on 09/20/19 as outpatient, tolerated well here Controlled fall at home, almost like a slide down her bed she was seen in the ED, her most pressing complaint was pain in right hip/thigh she had a CT of right hip that showed no evidence of periprosthetic fracture, her prior right LESIA was intact prior trip to the ED she had extensive evaluation with x-rays and CT scans that showed no fractures she is participating with therapy, too weak to return home at this time she is eating and drinking well bowels are a little slow, continue Colace BID and Dulcolax HS, can use Miralax if needed goal is to get stronger and return home if possible Pending Studies at Discharge: No Stand-Alone Forms: My [facility] Skilled Items Patient informed of condition?: Yes DNR: Yes Discharge Level of Care: Skilled Communicable Disease: No Discharge Prognosis: Stable Lines: None Urinary Catheter: No Medications and DC Order Prescriptions: New diclofenac sodium 1 % gel 4 g topical QID PRN (Reason: pain) Qty: 100 RF: 0 docusate sodium 100 mg Capsule 100 mg PO BID 14 Days Qty: 28 RF: 0 bisacodyl 5 mg Tablet,Delayed Release (Dr/Ec) 5 mg PO QAM PRN (Reason: constipation) 14 Days Qty: 14 RF: 0 hydromorphone 2 mg Tablet 4 mg PO QID 7 Days Qty: 56 RF: 0 Continued furosemide 40 mg Tablet 40 mg PO QAM RF: 0 clonidine HCl 0.1 mg Tablet 0.1 mg PO BID RF: 0 metoprolol succinate 100 mg Tablet Extended Release 24 Hr 100 mg PO HS RF: 0 clopidogrel 75 mg Tablet 75 mg PO QAM RF: 0 amlodipine 5 mg Tablet 5 mg PO QAM RF: 0 aspirin [Aspirin Low Dose] 81 mg Tablet,Delayed Release (Dr/Ec) 81 mg PO QAM RF: 0 pantoprazole 40 mg Tablet,Delayed Release (Dr/Ec) 40 mg PO QAM RF: 0 ferrous sulfate 325 mg (65 mg iron) Tablet 325 mg PO BID RF: 0 lisinopril 40 mg Tablet 40 mg PO QAM RF: 0 rosuvastatin 20 mg Tablet 20 mg PO HS RF: 0 duloxetine 60 mg Capsule,Delayed Release(Dr/Ec) 60 mg PO QAM RF: 0 Janumet 50-1,000 mg Tablet 1 tab PO QPM RF: 0 potassium gluconate 595 mg (99 mg) Tablet 297.5 mg PO QAM RF: 0 gabapentin 600 mg tablet 600 mg PO TID RF: 0 Levemir FlexTouch U-100 Insuln 100 unit/mL (3 mL) insulin pen 15 unit SUBCUT DAILY RF: 0 melatonin 5 mg Tablet 10 mg PO HS RF: 0 magnesium oxide 500 mg capsule 500 mg PO QAM RF: 0 Discharge Orders: Discharge Order (Routine); Ordered 10/01/19 Ordered By: Param Santo Admission Data Admit Date/Time: 09/26/19 16:13 Attending Provider: Param Santo Admit Provider: Peter Martinez Primary Care Provider: Radha Gonzalez Other Providers: Peter Martinez ; Emani May at [place] ; [facility], Other Interventions: Discharge Summary Assessment (RN) Last Done: 10/01/19 11:16 Coding Level of Care Code D/C Day Management <30 mins Diagnoses Fall W19.XXXA Encounter type: initial encounter Weakness R53.1 Hypomagnesemia E83.42 HTN (hypertension) I10 Hypertension type: essential hypertension CHF (congestive heart failure) I50.9 Anemia D64.9 Diabetes E11.9 Asthma J45.909 Arthritis M19.90 Subdural hematoma S06.5X9A Constipation K59.00
== END 2019-10-01 12:45 ==
LOC: ED 14:01 → INTOOBSV 16:13 → SUATTDRO 16:13 → 2W 16:13

== ENCOUNTER 2019-10-12 12:54 | Observation (INO) ==
[2019-10-12] MEDS ORDERED: SODIUM CHLORIDE 0.9% 500 ML IV ONE (13:43)
[2019-10-12] MEDS ORDERED: ACETAMINOPHEN 1,000 MG/100 ML VIAL IV STA (13:43)
[2019-10-12 14:37] LABS: Basophils # (auto) 0.03 K/uL (0-0.2); Basophils % (auto) 0.4 %; Eosinophils # (auto) 0.09 K/uL (0-0.5); Eosinophils % (auto) 1.2 %; Hematocrit (blood only) 41.2 % (37-47); Hemoglobin 13.6 g/dL (12.0-16.0); Immature Granulocytes # (auto) 0.01 K/uL (0.00-0.02); Immature Granulocytes % (auto) 0.1 %; Lymphocytes # (auto) 1.77 K/uL (1.2-3.4); Lymphocytes % (auto) 22.9 %; Mean Corpuscular Hemoglobin 30.7 pg (25-34); Mean Platelet Volume 10.5 fL (7.4-10.4); Monocytes # (auto) 0.23 K/uL (0.11-0.59); Neutrophils # (auto) 5.61 K/uL (1.4-6.5); Neutrophils % (auto) 72.4 %; Platelet Count 276 K/uL (130-400); RDW Coefficient of Variation 13.8 % (11.5-14.5); RDW Standard Deviation 47.5 fL (36.4-46.3); Red Blood Count 4.43 M/uL (4.2-5.4); White Blood Count 7.74 K/uL (4.8-10.8)
[2019-10-12] MEDS ORDERED: MoRPHine SULFATE 2 MG/ML CARP IV STA (14:38)
[2019-10-12 14:47] LABS: INR 1.1 (0.9-1.1); Partial Thromboplastin Ratio 1.1; Partial Thromboplastin Time 30.3 Seconds (21.0-31.0); Prothrombin Time 11.5 Seconds (9.0-12.0)
[2019-10-12 14:50] LABS: Alanine Aminotransferase 21 U/L (12-78); Albumin Level 3.7 gm/dl (3.4-5.0); Aspartate Aminotransferase 19 U/L (15-37); BUN Creatinine Ratio 20.3 (10-20); Bilirubin Direct 0.2 mg/dl (0-0.2); Blood Urea Nitrogen 17 mg/dl (7-18); Calcium 9.6 mg/dl (8.5-10.1); Carbon Dioxide 31 mmol/L (21-32); Chloride 102 mmol/L (98-107); Creatinine Clr Calc Pharmacy 58.9 ml/min; Est GFR (African American) 76.6; Est GFR (Non-African American) 66.1; Glucose 127 mg/dl (70-99); Lipase 64 U/L (73-393); Magnesium 1.8 mg/dl (1.8-2.4); Potassium 3.8 mmol/L (3.5-5.1); Sodium 139 mmol/L (136-145)
[2019-10-12 14:59] LABS: Albumin Globulin Ratio 0.8 (0.9-2); Alkaline Phosphatase 127 U/L (45-117); Bilirubin,Total 0.9 mg/dl (0.2-1); Creatine Kinase 37 U/L (26-192); Globulin 4.5 gm/dl (2.5-4.0); Phosphorus 4.1 mg/dl (2.5-4.9); Thyroid Stimulating Hormone 0.999 uIu/ml (0.300-4.500); Total Protein 8.2 gm/dl (6.4-8.2); Troponin I < 0.015 ng/ml (0-0.045)
--- NOTE | 2019-10-12 15:19 | XRay Report ---
RIGHT FEMUR 3 VIEWS CLINICAL HISTORY: Fall with right leg pain. FINDINGS: AP, frog-leg, and lateral views of the right femur are compared to study dated 09/24/2019 an d correlated with femoral CT dated 09/26/2019. The skeletal structures are osteopenic. A bipolar right hip arthroplasty is in near-anatomic alignment. No periprosthetic lucency is seen. There is no radio graphic evidence of right femoral fracture. The visualized right hemipelvis appears intact. The overl veena soft tissues are within normal limits. Surgical clips are partially visualized in the upper calf . There is atherosclerotic calcification of the femoral and popliteal arteries. IMPRESSION: 1. There is no radiographic evidence of right femoral fracture. 2. A right hip arthroplasty is in near-anatomic alignment. Electronically signed by: Stuart Shaw M.D. 10/12/2019 3:17 PM
--- NOTE | 2019-10-12 15:20 | XRay Report ---
SINGLE VIEW CHEST CLINICAL HISTORY: Atypical chest pain. Fall. FINDINGS: An AP, portable, upright chest radiograph is compared to study dated 09/26/2019. Correlation is made with chest CT dated 12/17/2018. The examination is degraded by portable technique and apical lordotic positioning. The heart is top normal for projection. The mediastinal contour is within jorge luis l limits. The lungs and pleural spaces are clear. No pneumothorax is seen. The skeletal structures ar e osteopenic. Severe chronic deformity of the left humeral head is similar to previous. IMPRESSION: No active disease in the chest. ACT 112: Negative or not required by law. Electronically signed by: Stuart Shaw M.D. 10/12/2019 3:19 PM
--- NOTE | 2019-10-12 15:36 | CT Scan Report ---
CT SCAN OF THE BRAIN WITHOUT IV CONTRAST CLINICAL HISTORY: Fall. Change in mental status. COMPARISON STUDY: CT of the brain dated 09/24/2019. TECHNIQUE: Unenhanced axial CT scan of the brain is performed from the vertex to the skull base. A do se lowering technique was utilized adhering to the principles of ALARA. FINDINGS: Brain parenchyma: There are age-related involutional changes noting mild to moderate patchy subcorti maisha and periventricular microangiopathic change. There is no hemorrhage, mass effect, or evidence of acute territorial ischemia by CT criteria. Welch-white matter differentiation is preserved. No extra-a xial fluid collection is seen. Ventricles, sulci, cisterns: Prominent secondary to involutional change. Intracranial vasculature: There is atherosclerotic calcification of the cavernous carotid arteries. Calvarium: Unremarkable. Sinuses and mastoids: The visualized paranasal sinuses are clear. The mastoid air cells are well pneu matized. Orbits: The bony orbits are grossly intact. There are bilateral ocular lens implants. IMPRESSION: There is no hemorrhage, mass effect, or evidence of acute territorial ischemia by CT mikayla philip. ACT 112: Negative or not required by law. Electronically signed by: Stuart Shaw M.D. 10/12/2019 3:32 PM
--- NOTE | 2019-10-12 15:38 | CT Scan Report ---
CT OF THE CERVICAL SPINE CLINICAL HISTORY: Neck pain. TRAUMA COMPARISON STUDY: 09/24/2019 CT DOSE: TECHNIQUE: CT scan of the cervical spine was performed from the skull base to the thoracic inlet. Maribel ges are reviewed in the axial, sagittal, and coronal planes. IV contrast was not administered for thi s examination. A dose lowering technique was utilized adhering to the principles of ALARA. FINDINGS: The visualized portions of the lung apices reveal no evidence of pneumothorax. The prevertebral soft tissues are normal. No fractures or subluxations are visualized. There are multilevel degenerative changes, with prominent disc osteophyte complexes at the C5-6 and C 6-7 levels. There are erosive changes involving the right sternoclavicular joint consistent with the patient's clinical history of rheumatoid arthritis. There are bilateral cervical ribs IMPRESSION: No evidence of acute fracture or traumatic subluxation. ACT 112: Negative or not required by law. Electronically signed by: Maury Costello M.D. 10/12/2019 3:36 PM
--- NOTE | 2019-10-12 15:49 | CT Scan Report ---
CT SCAN OF THE CHEST, ABDOMEN, AND PELVIS WITH IV CONTRAST CLINICAL HISTORY: Fall. Change in mental status. COMPARISON STUDY: Chest CT scans dated 12/17/2018 and 10/01/2015. Abdominal CT dated 09/24/2019. TECHNIQUE: Following the IV administration of 94 of Optiray 320, CT scan of the chest, abdomen, and p margareth was performed from the thoracic inlet to the proximal femora. Images are reviewed in the axial, sagittal, and coronal planes. IV contrast was administered without complication. A dose lowering te chnique was utilized adhering to the principles of ALARA. CT DOSE: 2384.57 mGy.cm FINDINGS: CHEST: Thyroid: Imaged portions of the thyroid gland are normal in size and attenuation. Thoracic aorta: There is atherosclerotic calcification of the thoracic aorta, which is normal in shell gian and demonstrates standard 3-vessel arch anatomy. No dissection is seen. Pulmonary vasculature: The pulmonary trunk is normal in caliber. There are no filling defects identif ied in the central pulmonary vessels to indicate pulmonary embolus. Note that this examination was no t protocoled for evaluation of the pulmonary arteries. Heart: The heart is mildly enlarged and without pericardial effusion. Coronary arteries and mitral an nulus are densely calcified. Lungs and pleural spaces: There is no airspace consolidation, pleural effusion, or pneumothorax. Foci of scarring/atelectasis are noted at the lung bases. The trachea and central airways are clear. Tiny foci of pleural-based nodularity in the right middle lobe along the minor fissure are unchanged from 2016 and of doubtful significance. Mediastinum: There is no mediastinal hematoma or lymphadenopathy. Priscila: Clear. Axillae: There is no axillary lymphadenopathy. Bony thorax: The skeletal structures are osteopenic. Bony thorax appears intact. Degenerative change is noted throughout the thoracic spine. Arthritic change is seen in the shoulders. Sclerotic change a nd widening is seen at the right sternoclavicular joint is likely on a degenerative basis. No lytic o r blastic lesions are identified. ABDOMEN AND PELVIS: Liver: The contrast-enhanced liver is normal in size, contour, and attenuation. There is mild central intrahepatic biliary ductal dilatation. The hepatic veins and portal veins are patent. Gallbladder: Surgically absent. Spleen: Normal in size and attenuation. Tiny calcified granulomas are noted in the spleen. Pancreas: Moderately atrophic and grossly unremarkable. Adrenal glands: Unremarkable. Kidneys: The contrast enhanced kidneys demonstrate mild cortical atrophy and are without hydronephros is. The kidneys enhance symmetrically. Abdominal vasculature: The abdominal aorta is normal in course and caliber noting advanced atheroscle rotic calcification. An IVC filter is in place. Bowel: There is moderate colonic fecal retention. No bowel obstruction is seen. There is mild colonic diverticulosis without CT evidence of acute diverticulitis. The appendix is not identified and repo rted surgically absent. Peritoneum: There is no intraperitoneal free air or abdominal ascites. There is a small fat-containin g umbilical hernia. Lymphadenopathy: None. Pelvic viscera: Evaluation of the pelvis is degraded by streak artifact from a right hip arthroplasty . The bladder is distended but otherwise normal in appearance. The uterus is surgically absent. No ad nexal lesion is seen. Skeletal structures: The skeletal structures are osteopenic. The lumbosacral spine, bony pelvis, and proximal femora appear intact. Moderate lumbosacral spondylosis is observed. No lytic or blastic lesi ons are seen. A right hip arthroplasty is in place. Soft tissues: There is mild body wall edema. IMPRESSION: 1. There is no acute posttraumatic intrathoracic abnormality. 2. There is no airspace consolidation, pleural effusion, or pneumothorax. 3. Mild cardiomegaly. 4. There is no evidence of solid organ injury in the abdomen or pelvis. 5. Mild colonic diverticulosis without CT evidence of acute diverticulitis. 6. Additional findings as above. ACT 112: Negative or not required by law. Electronically signed by: Stuart Shaw M.D. 10/12/2019 3:48 PM
[2019-10-12 16:35] LABS: Appearance Urine Clear (Clear); Bilirubin Urine Negative (Negative); Blood Urine Negative (Negative); Color Urine Yellow; Glucose Urine UA Negative (Negative); Ketones Urine Negative (Negative); Leukocyte Esterase Urine Negative (Negative); Nitrite Urine Negative (Negative); Protein Urine Negative (Negative); Specific Gravity Urine 1.021 (1.000-1.030); Urobilinogen Urine Negative (Negative); pH Urine >= 9.0 (4.5-7.5)
--- NOTE | 2019-10-12 16:39 | Emergency Department Note ---
Impression & Plan Weakness, Confusion, Dehydration ED Provider Note NAME: VIGNESH STAFFORD AGE: 74 SEX: F ARRIVES VIA: Ambulance INFORMANT: Patient, ED PROVIDER(S): Adolfo Sethi MD CHIEF COMPLAINT: Weakness, confusion PLAN: Disposition: Admit MEDICAL DECISION MAKING: The patient is a pleasant 74-year-old woman with a past medical history of chronic pain, CHF, HTN, HLD, DM II, Asthma, falls, hx of subdural hematoma, DJD, DVT, gout who presents emergency department from home after home health found the patient confused and apparently lying in her her bed in her own urine suspected to have not gotten up since she arrived to their Friday afternoon f ollowing a discharge from prison facility. The patient does admit to feeling weak and not wanting to get up and even comments on feeling as though she was "getting wet all over" but still laying in bed despite this. She does admit to feeling weak and is agreeable with plan for admission. Of note the home health staff did express their concern and communicated to our skilled nursing case manager that they do not feel the patient is safe to be at home in her current state at this time. On arrival the patient is in no acute distress, afebrile stable vital signs. She has mild confusion related to her current situation. She appears clinically dry. The patient has no focal neuro deficits. EKG without overt acute ischemia. Chest x-ray negative for acute process. WBC, H/H and platelets within normal limits. Chemistry without acidosis. Electrolytes and LFTs unremarkable. Troponin negative/undetectable. Lipase is not elevated. UA without convincing evidence of infection. CT of the head, C-spine, chest, abdomen pelvis was negative for acute findings. Given the patient's confusion and generalized weakness where home clinical support tech for concern for her ability to live at home safely reasonable admit the patient for further management. Again, the patient agrees with this. Dr. Emmanuel, [facility] hospitalist, aware and will evaluate the patient for admission. Triage Nursing notes reviewed and agree them. Additional history obtained from home health provider to CM Prior medical records reviewed Vital Signs: reviewed and remarkable for no significant abnormalities Differential diagnosis: Infection, dehydration, metabolic abnormality, hypo/hyperglycemia, electrolyte disturbance, anemia, hypoxia, cardiac sources, intracerebral event, toxicologic, neurologic, as well as other pathologies. ER treatment provided: See below. Diagnostics interpreted by me: ECG: Sinus bradycardia, 59 bpm, left axis deviation, no overt ST elevation or depression, QTC 447, QRS 94. Cardiac Monitoring: An order for continuous cardiac monitoring was placed and demonstrated Sinus bradycardia, 59 bpm, no ectopy. Laboratory studies: See below Imaging studies: SINGLE VIEW CHEST CLINICAL HISTORY: Atypical chest pain. Fall. FINDINGS: An AP, portable, upright chest radiograph is compared to study dated 09/26/2019. Correlation is made with chest CT dated 12/17/2018. The examination is degraded by portable technique and apical lordotic positioning. The heart is top normal for projection. The mediastinal contour is within normal limits. The lungs and pleural spaces are clear. No pneumothorax is seen. The skeletal structures are osteopenic. Severe chronic deformity of the left humeral head is similar to previous. IMPRESSION: No active disease in the chest. RIGHT FEMUR 3 VIEWS CLINICAL HISTORY: Fall with right leg pain. FINDINGS: AP, frog-leg, and lateral views of the right femur are compared to study dated 09/24/2019 and correlated with femoral CT dated 09/26/2019. The sk eletal structures are osteopenic. A bipolar right hip arthroplasty is in near- anatomic alignment. No periprosthetic lucency is seen. There is no radiographic evidence of right femoral fracture. The visualized right hemipelvis appears intact. The overlying soft tissues are within normal limits. Surgical clips are partially visualized in the upper calf. There is atherosclerotic calcification of the femoral and popliteal arteries. IMPRESSION: 1. There is no radiographic evidence of right femoral fracture. 2. A right hip arthroplasty is in near-anatomic alignment. CT SCAN OF THE BRAIN WITHOUT IV CONTRAST CLINICAL HISTORY: Fall. Change in mental status. COMPARISON STUDY: CT of the brain dated 09/24/2019. TECHNIQUE: Unenhanced axial CT scan of the brain is performed from the vertex to the skull base. A dose lowering technique was utilized adhering to the principles of ALARA. FINDINGS: Brain parenchyma: There are age-related involutional changes noting mild to moderate patchy subcortical and periventricular microangiopathic change. There is no hemorrhage, mass effect, or evidence of acute territorial ischemia by CT criteria. Welch-white matter differentiation is preserved. No extra-axial fluid collection is seen. Ventricles, sulci, cisterns: Prominent secondary to involutional change. Intracranial vasculature: There is atherosclerotic calcification of the cavernous carotid arteries. Calvarium: Unremarkable. Sinuses and mastoids: The visualized paranasal sinuses are clear. The mastoid air cells are well pneumatized. Orbits: The bony orbits are grossly intact. There are bilateral ocular lens implants. IMPRESSION: There is no hemorrhage, mass effect, or evidence of acute territorial ischemia by CT criteria. CT OF THE CERVICAL SPINE CLINICAL HISTORY: Neck pain. TRAUMA COMPARISON STUDY: 09/24/2019 CT DOSE: TECHNIQUE: CT scan of the cervical spine was performed from the skull base to the thoracic inlet. Images are reviewed in the axial, sagittal, and coronal planes. IV contrast was not administered for this examination. A dose lowering technique was utilized adhering to the principles of ALARA. FINDINGS: The visualized portions of the lung apices reveal no evidence of pneumothorax. The prevertebral soft tissues are normal. No fractures or subluxations are visualized. There are multilevel degenerative changes, with prominent disc osteophyte co mplexes at the C5-6 and C6-7 levels. There are erosive changes involving the right sternoclavicular joint consistent with the patient's clinical history of rheumatoid arthritis. There are bilateral cervical ribs IMPRESSION: No evidence of acute fracture or traumatic subluxation. CT SCAN OF THE CHEST, ABDOMEN, AND PELVIS WITH IV CONTRAST CLINICAL HISTORY: Fall. Change in mental status. COMPARISON STUDY: Chest CT scans dated 12/17/2018 and 10/01/2015. Abdominal CT dated 09/24/2019. TECHNIQUE: Following the IV administration of 94 of Optiray 320, CT scan of the chest, abdomen, and pelvis was performed from the thoracic inlet to the proximal femora. Images are reviewed in the axial, sagittal, and coronal planes. IV contrast was administered without complication. A dose lowering technique was utilized adhering to the principles of ALARA. CT DOSE: 2384.57 mGy.cm FINDINGS: CHEST: Thyroid: Imaged portions of the thyroid gland are normal in size and attenuation. Thoracic aorta: There is atherosclerotic calcification of the thoracic aorta, which is normal in caliber and demonstrates standard 3-vessel arch anatomy. No dissection is seen. Pulmonary vasculature: The pulmonary trunk is normal in caliber. There are no filling defects identified in the central pulmonary vessels to indicate pulmonary embolus. Note that this examination was not protocoled for evaluation of the pulmonary arteries. Heart: The heart is mildly enlarged and without pericardial effusion. Coronary arteries and mitral annulus are densely calcified. Lungs and pleural spaces: There is no airspace consolidation, pleural effusion, or pneumothorax. Foci of scarring/atelectasis are noted at the lung bases. The trachea and central airways are clear. Tiny foci of pleural-based nodularity in the right middle lobe along the minor fissure are unchanged from 2016 and of doubtful significance. Mediastinum: There is no mediastinal hematoma or lymphadenopathy. Priscila: Clear. Axillae: There is no axillary lymphadenopathy. Bony thorax: The skeletal structures are osteopenic. Bony thorax appears intact. Degenerative change is noted throughout the thoracic spine. Arthritic change is seen in the shoulders. Sclerotic change and widening is seen at the right sternoclavicular joint is likely on a degenerative basis. No lytic or blastic lesions are identified. ABDOMEN AND PELVIS: Liver: The contrast-enhanced liver is normal in size, contour, and attenuation. There is mild central intrahepatic biliary ductal dilatation. The hepatic veins and portal veins are patent. Gallbladder: Surgically absent. Spleen: Normal in size and attenuation. Tiny calcified granulomas are noted in the spleen. Pancreas: Moderately atrophic and grossly unremarkable. Adrenal glands: Unremarkable. Kidneys: The contrast enhanced kidneys demonstrate mild cortical atrophy and are without hydronephrosis. The kidneys enhance symmetrically. Abdominal vasculature: The abdominal aorta is normal in course and caliber noting advanced atherosclerotic calcification. An IVC filter is in place. Bowel: There is moderate colonic fecal retention. No bowel obstruction is seen. There is mild colonic diverticulosis without CT evidence of acute diverticulitis. The appendix is not identified and reported surgically absent. Peritoneum: There is no intraperitoneal free air or abdominal ascites. There is a small fat-containing umbilical hernia. Lymphadenopathy: None. Pelvic viscera: Evaluation of the pelvis is degraded by streak artifact from a right hip arthroplasty. The bladder is distended but otherwise normal in appearance. The uterus is surgically absent. No adnexal lesion is seen. Skeletal structures: The skeletal structures are osteopenic. The lumbosacral spine, bony pelvis, and proximal femora appear intact. Moderate lumbosacral spondylosis is observed. No lytic or blastic lesions are seen. A right hip arthroplasty is in place. Soft tissues: There is mild body wall edema. IMPRESSION: 1. There is no acute posttraumatic intrathoracic abnormality. 2. There is no airspace consolidation, pleural effusion, or pneumothorax. 3. Mild cardiomegaly. 4. There is no evidence of solid organ injury in the abdomen or pelvis. 5. Mild colonic diverticulosis without CT evidence of acute diverticulitis. 6. Additional findings as above. Consultation(s): Dr. Emmanuel, [facility] hospitalist, aware and will evaluate the patient for admission. HPI: The patient is a pleasant 74-year-old woman with a past medical history of chronic pain, CHF, HTN, HLD, DM II, Asthma, falls, hx of subdural hematoma, DJD, DVT, gout who presents emergency department from home after home health found the patient confused and apparently lying in her her bed in her own urine suspected to have not gotten up since she arrived to their Friday afternoon following a discharge from prison facility. The patient does admit to feeling weak and not wanting to get up and even comments on feeling as though she was "getting wet all over" but still laying in bed despite this. ROS: See above HPI for pertinent positives & negatives. A total of 10 systems reviewed and were otherwise negative. PAST MEDICAL HISTORY:See Below PAST SURGICAL HISTORY:See Below FAMILY HISTORY:See Below SOCIAL HISTORY:See Below HOME MEDICATIONS:See Below ALLERGIES:See Below VITALS:See Below PHYSICAL EXAMINATION: GENERAL: Awake, alert, fatigued-appearing, in no distress HENT: Normocephalic, atraumatic. Oropharynx with dry mucous membranes and otherwise unremarkable. EYES: Normal conjunctiva. Sclera non-icteric. NECK: Supple. No nuchal rigidity. FROM. No JVD. Generalized discomfort of paraspinal muscles the neck without midline tenderness or step-offs. RESPIRATORY: Clear to auscultation. CARDIAC: Regular rate, normal rhythm. Extremities warm and well perfused. Pulses equal. ABDOMEN: Soft, non-distended. No tenderness to palpation. No rebound or guarding. No masses. RECTAL: Deferred. MUSCULOSKELETAL: Chest examination reveals no tenderness. The back is symmetrical on inspection without obvious abnormality. There is no CVA te nderness to palpation. Mild right lower abdominal, hip and thigh discomfort discrete tenderness. Full range of motion intact of hips bilaterally. Pelvis is stable. LOWER EXTREMITIES: Calves are equal size bilaterally and non-tender. No edema. No discoloration. NEURO: Normal sensorium. No focal sensory or motor deficits noted. 4+/5 strength and SILT x 4 extremities. SKIN: No rash or jaundice noted. Adolfo E Cross, MD Past Med/Surg History Medical History Anemia Asthma CHF (congestive heart failure) Diabetes DVT (deep venous thrombosis) Fall Gout HTN (hypertension) Hypomagnesemia Intracranial hemorrhage (03/04/14) Subdural hematoma Surgical History H/O shoulder surgery History of hysterectomy Hx of appendectomy S/P IVC filter Family History Other Hypertension Seizures Social History Smoking Status: Never smoker Hx Alcohol Use: No Hx Substance Use: No Preferred Language: Italian Communication Ability: Effective Visual Impairment: No Limitations 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: Normal Boiler Tender Required: No Beliefs That Will Affect Care: None marital status: / Current Living Situation: Alone Current Living Situation Comment: Condo Feels Safe at Home: Yes Allergies Allergies Allergy/AdvReac Type Severity Reaction Status Date / Time Cephalosporins Allergy Intermediate RINGING OF Verified 10/12/19 17:21 EARS,FALLING BALANCE ISSUES prochlorperazine Allergy Intermediate STROKE Verified 10/12/19 17:21 LIKE SYMPTOMS, CAN'T TALK linezolid AdvReac Intermediate diarrhea,vo Verified 10/12/19 17:21 miting tramadol AdvReac Intermediate UNSTEADY Verified 10/12/19 17:21 ON FEET, HYPERACTIVITY morphine AdvReac Unknown NOT Verified 10/12/19 17:21 EFFECTIVE Home Meds Home Medications Medication Instructions Recorded Confirmed Janumet 1 tab PO QPM 10/21/17 10/12/19 amlodipine 5 mg PO QAM 10/21/17 10/12/19 aspirin [Aspirin Low Dose] 81 mg PO QAM 10/21/17 10/12/19 clonidine HCl 0.1 mg PO BID 10/21/17 10/12/19 clopidogrel 75 mg PO QAM 10/21/17 10/12/19 duloxetine 60 mg PO QAM 10/21/17 10/12/19 ferrous sulfate 325 mg PO DAILY 10/21/17 10/12/19 furosemide 40 mg PO QAM 10/21/17 10/12/19 lisinopril 40 mg PO QAM 10/21/17 10/12/19 metoprolol succinate 100 mg PO HS 10/21/17 10/12/19 pantoprazole 40 mg PO QAM 10/21/17 10/12/19 potassium gluconate 297.5 mg PO QAM 10/21/17 10/12/19 melatonin 10 mg PO HS 12/13/17 10/12/19 gabapentin 600 mg PO TID 06/17/18 10/12/19 magnesium oxide 500 mg PO QAM 12/17/18 10/12/19 Levemir FlexTouch U-100 Insuln 15 unit SUBCUT DAILY 01/02/19 10/12/19 atorvastatin 40 mg PO HS 10/12/19 10/12/19 oxycodone-acetaminophen [Percocet] 1 tab PO Q4 PRN 10/12/19 10/12/19 Previous Rx's Medication Instructions Recorded diclofenac sodium 4 g TOPICAL QID PRN #100 g 10/01/19 docusate sodium 100 mg PO BID 14 Days #28 cap 10/01/19 Results & Data (ED) Vital Signs Vital Signs - 24 hr 10/12/19 12:43 10/12/19 13:07 10/12/19 13:16 Temperature 36.8 C Temperature Source Oral Pulse Rate 66 62 67 Pulse Rate [Apical] Pulse Rate from SpO2 Sensor 62 68 Pulse Rhythm Regular Pulse Rhythm [Apical] Pulse Strength Normal Pulse Strength [Apical] Respiratory Rate 18 15 16 Respiratory Effort / Characteristics Non-Labored Respiratory Depth Normal Respiratory Pattern Regular Blood Pressure 134/69 134/69 Blood Pressure [Right Arm] Blood Pressure Mean 90 77 Blood Pressure Mean [Right Arm] Blood Pressure Position Lying Blood Pressure Position [Right Arm] Pulse Oximetry 97 96 97 Oxygen Delivery Method Room Air Sepsis Recent Fever Within 48 Hours No Sepsis New/Unexplained Change in Mental Status No Sepsis Action Taken by Nursing No Action Required 10/12/19 13:30 10/12/19 13:31 10/12/19 14:00 Temperature Temperature Source Pulse Rate 60 61 62 Pulse Rate [Apical] Pulse Rate from SpO2 Sensor 60 62 62 Pulse Rhythm Pulse Rhythm [Apical] Pulse Strength Pulse Strength [Apical] Respiratory Rate 17 20 23 Respiratory Effort / Characteristics Respiratory Depth Respiratory Pattern Blood Pressure 154/87 H 160/71 H Blood Pressure [Right Arm] Blood Pressure Mean 101 96 Blood Pressure Mean [Right Arm] Blood Pressure Position Blood Pressure Position [Right Arm] Pulse Oximetry 96 94 97 Oxygen Delivery Method Sepsis Recent Fever Within 48 Hours Sepsis New/Unexplained Change in Mental Status Sepsis Action Taken by Nursing 10/12/19 14:01 10/12/19 14:30 10/12/19 14:31 Temperature Temperature Source Pulse Rate 62 64 63 Pulse Rate [Apical] Pulse Rate from SpO2 Sensor 62 63 65 Pulse Rhythm Pulse Rhythm [Apical] Pulse Strength Pulse Strength [Apical] Respiratory Rate 22 23 19 Respiratory Effort / Characteristics Respiratory Depth Respiratory Pattern Blood Pressure 137/107 H Blood Pressure [Right Arm] Blood Pressure Mean 110 Blood Pressure Mean [Right Arm] Blood Pressure Position Blood Pressure Position [Right Arm] Pulse Oximetry 96 99 100 Oxygen Delivery Method Sepsis Recent Fever Within 48 Hours Sepsis New/Unexplained Change in Mental Status Sepsis Action Taken by Nursing 10/12/19 14:32 10/12/19 14:35 10/12/19 15:00 Temperature Temperature Source Pulse Rate 63 61 57 L Pulse Rate [Apical] Pulse Rate from SpO2 Sensor 63 57 L Pulse Rhythm Pulse Rhythm [Apical] Pulse Strength Pulse Strength [Apical] Respiratory Rate 22 20 20 Respiratory Effort / Characteristics Respiratory Depth Respiratory Pattern Blood Pressure 138/58 L Blood Pressure [Right Arm] Blood Pressure Mean 85 Blood Pressure Mean [Right Arm] Blood Pressure Position Blood Pressure Position [Right Arm] Pulse Oximetry 99 99 96 Oxygen Delivery Method Room Air Sepsis Recent Fever Within 48 Hours Sepsis New/Unexplained Change in Mental Status Sepsis Action Taken by Nursing 10/12/19 15:37 10/12/19 15:38 10/12/19 16:00 Temperature Temperature Source Pulse Rate 67 64 58 L Pulse Rate [Apical] 66 Pulse Rate from SpO2 Sensor 67 64 64 Pulse Rhythm Pulse Rhythm [Apical] Regular Pulse Strength Pulse Strength [Apical] Normal Respiratory Rate 18 20 21 Respiratory Effort / Characteristics Non-Labored Spontaneous Respiratory Depth Normal Respiratory Pattern Regular Blood Pressure 142/86 H Blood Pressure [Right Arm] 142/86 H Blood Pressure Mean 116 Blood Pressure Mean [Right Arm] 104 Blood Pressure Position Blood Pressure Position [Right Arm] Left Lateral Pulse Oximetry 98 99 96 Oxygen Delivery Method Room Air Sepsis Recent Fever Within 48 Hours Sepsis New/Unexplained Change in Mental Status Sepsis Action Taken by Nursing 10/12/19 16:01 10/12/19 16:24 10/12/19 16:30 Temperature Temperature Source Pulse Rate 54 L 70 64 Pulse Rate [Apical] Pulse Rate from SpO2 Sensor 55 L Pulse Rhythm Pulse Rhythm [Apical] Pulse Strength Pulse Strength [Apical] Respiratory Rate 24 22 16 Respiratory Effort / Characteristics Respiratory Depth Respiratory Pattern Blood Pressure 160/54 H 190/80 H 170/89 H Blood Pressure [Right Arm] Blood Pressure Mean 73 101 123 Blood Pressure Mean [Right Arm] Blood Pressure Position Blood Pressure Position [Right Arm] Pulse Oximetry 98 Oxygen Delivery Method Sepsis Recent Fever Within 48 Hours Sepsis New/Unexplained Change in Mental Status Sepsis Action Taken by Nursing 10/12/19 16:31 10/12/19 17:00 10/12/19 17:01 Temperature Temperature Source Pulse Rate 64 65 64 Pulse Rate [Apical] Pulse Rate from SpO2 Sensor Pulse Rhythm Pulse Rhythm [Apical] Pulse Strength Pulse Strength [Apical] Respiratory Rate 18 15 20 Respiratory Effort / Characteristics Respiratory Depth Respiratory Pattern Blood Pressure 169/82 H Blood Pressure [Right Arm] Blood Pressure Mean 117 Blood Pressure Mean [Right Arm] Blood Pressure Position Blood Pressure Position [Right Arm] Pulse Oximetry Oxygen Delivery Method Sepsis Recent Fever Within 48 Hours Sepsis New/Unexplained Change in Mental Status Sepsis Action Taken by Nursing Laboratory Data Attestation: I reviewed the patient's lab results. Result diagrams: 10/12/19 14:15 10/12/19 14:15 Lab Results 10/12/19 10/12/19 10/12/19 Range/Units 14:15 14:15 14:15 WBC 7.74 (4.8-10.8) K/uL RBC 4.43 (4.2-5.4) M/uL Hgb 13.6 (12.0-16.0) g/dL Hct 41.2 (37-47) % MCV 93.0 (80-100) fL MCH 30.7 (25-34) pg MCHC 33.0 (32-36) g/dL RDW Std Deviation 47.5 H (36.4-46.3) fL RDW Coeff of [place] 13.8 (11.5-14.5) % Plt Count 276 (130-400) K/uL MPV 10.5 H (7.4-10.4) fL Immature Gran % (Auto) 0.1 % Neut % (Auto) 72.4 % Lymph % (Auto) 22.9 % Todd % (Auto) 3.0 % Eos % (Auto) 1.2 % Baso % (Auto) 0.4 % Neut # (Auto) 5.61 (1.4-6.5) K/uL Lymph # (Auto) 1.77 (1.2-3.4) K/uL Todd # (Auto) 0.23 (0.11-0.59) K/uL Eos # (Auto) 0.09 (0-0.5) K/uL Baso # (Auto) 0.03 (0-0.2) K/uL Immature Gran # (Auto) 0.01 (0.00-0.02) K/uL PT 11.5 (9.0-12.0) Seconds INR 1.1 (0.9-1.1) APTT 30.3 (21.0-31.0) Seconds PTT Ratio 1.1 Sodium 139 (136-145) mmol/L Potassium 3.8 (3.5-5.1) mmol/L Chloride 102 (98-107) mmol/L Carbon Dioxide 31 (21-32) mmol/L Anion Gap 6.0 (3-11) BUN 17 (7-18) mg/dl Creatinine 0.86 (0.6-1.2) mg/dl Est Cr Clr Drug Dosing 58.9 ml/min Est GFR ( Amer) 76.6 Est GFR (Non-Af Amer) 66.1 BUN/Creatinine Ratio 20.3 H (10-20) Glucose 127 H (70-99) mg/dl Calcium 9.6 (8.5-10.1) mg/dl Phosphorus 4.1 (2.5-4.9) mg/dl Magnesium 1.8 (1.8-2.4) mg/dl Total Bilirubin 0.9 (0.2-1) mg/dl Direct Bilirubin 0.2 (0-0.2) mg/dl AST 19 (15-37) U/L ALT 21 (12-78) U/L Alkaline Phosphatase 127 H (45-117) U/L Ammonia Total Creatine Kinase 37 (26-192) U/L Troponin I < 0.015 (0-0.045) ng/ml Total Protein 8.2 (6.4-8.2) gm/dl Albumin 3.7 (3.4-5.0) gm/dl Globulin 4.5 H (2.5-4.0) gm/dl Albumin/Globulin Ratio 0.8 L (0.9-2) Lipase 64 L (73-393) U/L TSH 0.999 (0.300-4.500) uIu/ml Urine Color Urine Appearance (Clear) Urine pH (4.5-7.5) Ur Specific [place] (1.000-1.030) Urine Protein (Negative) Urine Glucose (UA) (Negative) Urine Ketones (Negative) Urine Blood (Negative) Urine Nitrite (Negative) Urine Bilirubin (Negative) Urine Urobilinogen (Negative) Ur Leukocyte Esterase (Negative) 10/12/19 10/12/19 10/12/19 Range/Units 14:15 16:15 16:21 WBC (4.8-10.8) K/uL RBC (4.2-5.4) M/uL Hgb (12.0-16.0) g/dL Hct (37-47) % MCV (80-100) fL MCH (25-34) pg MCHC (32-36) g/dL RDW Std Deviation (36.4-46.3) fL RDW Coeff of [place] (11.5-14.5) % Plt Count (130-400) K/uL MPV (7.4-10.4) fL Immature Gran % (Auto) % Neut % (Auto) % Lymph % (Auto) % Todd % (Auto) % Eos % (Auto) % Baso % (Auto) % Neut # (Auto) (1.4-6.5) K/uL Lymph # (Auto) (1.2-3.4) K/uL Todd # (Auto) (0.11-0.59) K/uL Eos # (Auto) (0-0.5) K/uL Baso # (Auto) (0-0.2) K/uL Immature Gran # (Auto) (0.00-0.02) K/uL PT (9.0-12.0) Seconds INR (0.9-1.1) APTT (21.0-31.0) Seconds PTT Ratio Sodium (136-145) mmol/L Potassium (3.5-5.1) mmol/L Chloride (98-107) mmol/L Carbon Dioxide (21-32) mmol/L Anion Gap (3-11) BUN (7-18) mg/dl Creatinine (0.6-1.2) mg/dl Est Cr Clr Drug Dosing ml/min Est GFR ( Amer) Est GFR (Non-Af Amer) BUN/Creatinine Ratio (10-20) Glucose (70-99) mg/dl Calcium (8.5-10.1) mg/dl Phosphorus (2.5-4.9) mg/dl Magnesium (1.8-2.4) mg/dl Total Bilirubin (0.2-1) mg/dl Direct Bilirubin (0-0.2) mg/dl AST (15-37) U/L ALT (12-78) U/L Alkaline Phosphatase (45-117) U/L Ammonia Cancelled < 10.0 L Total Creatine Kinase (26-192) U/L Troponin I (0-0.045) ng/ml Total Protein (6.4-8.2) gm/dl Albumin (3.4-5.0) gm/dl Globulin (2.5-4.0) gm/dl Albumin/Globulin Ratio (0.9-2) Lipase (73-393) U/L TSH (0.300-4.500) uIu/ml Urine Color Yellow Urine Appearance Clear (Clear) Urine pH >= 9.0 H (4.5-7.5) Ur Specific [place] 1.021 (1.000-1.030) Urine Protein Negative (Negative) Urine Glucose (UA) Negative (Negative) Urine Ketones Negative (Negative) Urine Blood Negative (Negative) Urine Nitrite Negative (Negative) Urine Bilirubin Negative (Negative) Urine Urobilinogen Negative (Negative) Ur Leukocyte Esterase Negative (Negative) Administered Medications Clonidine HCl (Clonidine Hcl 0.1 Mg Tab) 0.1 mg PO BID BARRY Stop: 11/11/19 20:59 Last Admin: 10/12/19 20:51 Dose: 0.1 mg Documented by: [id number] Docusate Sodium (Docusate Sodium 100 Mg Cap) 100 mg PO BID BARRY Stop: 11/11/19 20:59 Last Admin: 10/12/19 21:19 Dose: 100 mg Documented by: [id number] Ferrous Sulfate (Ferrous Sulfate 325 Mg Tab) 325 mg PO BID BARRY Stop: 11/11/19 20:59 Last Admin: 10/12/19 21:19 Dose: 325 mg Documented by: [id number] Gabapentin (Gabapentin 600 Mg Tab) 600 mg PO TID BARRY Stop: 11/11/19 20:59 Last Admin: 10/12/19 20:52 Dose: 600 mg Documented by: [id number] Hydromorphone HCl (Hydromorphone Hcl 2 Mg Tab) 4 mg PO Q6H PRN PRN Reason: Pain Stop: 10/26/19 20:41 Last Admin: 10/12/19 21:23 Dose: 4 mg Documented by: [id number] Insulin Aspart (Insulin Aspart 100 Units/Ml 3 Ml Pen) 0 units SC ACHS BARRY Stop: 11/11/19 20:59 Last Admin: 10/12/19 21:20 Dose: 1 units Documented by: [id number] Cosigned by: [id number] Metoprolol Succinate (Metoprolol Succ 50mg Ext Rel Tab) 100 mg PO HS BARRY Stop: 11/11/19 20:59 Last Admin: 10/12/19 20:51 Dose: 100 mg Documented by: [id number] Discontinued Medications Acetaminophen (Ofirmev) 1,000 mg in 100 mls @ 400 mls/hr IV NOW STA Stop: 10/12/19 13:57 Last Infusion: 10/12/19 14:49 Dose: 0 mls/hr Documented by: [id number] Admin: 10/12/19 14:33 Dose: 400 mls/hr Documented by: [id number] Sodium Chloride (Nss) 500 mls @ 999 mls/hr IV .Q31M ONE Stop: 10/12/19 14:13 Last Infusion: 10/12/19 15:02 Dose: 0 mls/hr Documented by: [id number] Admin: 10/12/19 14:31 Dose: 999 mls/hr Documented by: [id number] Morphine Sulfate (Morphine Sulfate 2 Mg/Ml Carp) 2 mg IV NOW STA Stop: 10/12/19 14:39 Last Admin: 10/12/19 15:18 Dose: 2 mg Documented by: [id number] Oxycodone HCl (Oxycodone Hcl Ir 5 Mg Tab (Immediate Release)) 5 mg PO Q4H PRN PRN Reason: Severe Pain Stop: 10/26/19 19:48 Last Admin: 10/12/19 20:18 Dose: 5 mg Documented by: [id number] Blood Pressure Blood Pressure Findings: Elevated blood pressure Blood Pressure Disposition: further management by hospitalist Discharge Plan Visit Data Chief Complaint: Altered Mental Status ED Provider: Adolfo Sethi Discharge Problem: Weakness, Confusion, Dehydration Patient Disposition: Admitted As Inpatient Discharge Instructions Interventions: ED Discharge Assessment Last Done: 10/12/19 18:54
[2019-10-12] MEDS ORDERED: ONDANSETRON INJ 2 MG/ML 2 ML VIAL IV PRN (19:27)
[2019-10-12] MEDS ORDERED: ACETAMINOPHEN 325 MG TAB PO PRN (19:27)
[2019-10-12] MEDS ORDERED: GLUCOSE 10 TABS/TUBE PO PRN (19:45)
[2019-10-12] MEDS ORDERED: GLUCAGON FOR INJ 1 MG VIAL IM PRN (19:45)
[2019-10-12] MEDS ORDERED: CARBOHYDRATES FOR HYPOGLYCEMIA PO PRN (19:45)
[2019-10-12] MEDS ORDERED: DEXTROSE 50% 50 ML SYRINGE IV PRN (19:45)
[2019-10-12] MEDS ORDERED: GLUCOSE 40% GEL 15 GM TUBE PO PRN (19:45)
[2019-10-12] MEDS ORDERED: OXYCODONE HCL IR 5 MG TAB (IMMEDIATE RELEASE) PO PRN (19:49)
[2019-10-12] MEDS: METOPROLOL SUCC 50MG EXT REL TAB PO SCH (20:51)
[2019-10-12] MEDS: cloNIDine HCL 0.1 MG TAB PO SCH (20:51)
--- NOTE | 2019-10-12 20:51 | Communication Note ---
Date of Service: October 12, 2019 Patient requesting Dilaudid PO for her chronic shoulder and hip pain. She notes she is on this at home written by pain management. She currently has orders for Voltaren and Tylenol. She is Alert and oriented. Reviewed [facility] records, she had a recent telephone visit on 10/06/19. She is on Dilaudid 4mg PO QID home dose. I will order this PRN. Nursing noted that patient states son keeps supply of Dilaudid and brings to her daily. Not sure of validity of this information, noted that she was laying in urine since Friday. Resident Activity Tracking Resident Involvement: Resident Care Provided Care Provided: Adult Hospital Medicine
[2019-10-12] MEDS: GABAPENTIN 600 MG TAB PO SCH (20:52)
[2019-10-12] MEDS: FERROUS SULFATE 325 MG TAB PO SCH (21:19)
[2019-10-12] MEDS: DOCUSATE SODIUM 100 MG CAP PO SCH (21:19)
[2019-10-12] MEDS: INSULIN ASPART 100 UNITS/ML 3 ML PEN SC SCH (21:20)
[2019-10-12] MEDS: HYDROmorphone HCL 2 MG TAB PO PRN (21:23)
--- NOTE | 2019-10-12 21:50 | History & Physical Report ---
Date of Service October 12, 2019 Assessment & Plan (1) Weakness: discharged from [facility] for rehab on Monday 10/09 presents to ED two days later, found in her bed, soaked with urine, not getting up she cannot explain how she is getting her meals very weak on exam, all extremities no obvious lab abnormalities no fractures on numerous x-rays and CT scans consult PT/OT unsure that she will be safe at home may need to consider permanent placement depending on how she responds to care (2) Confusion: clearing up, suspect she was taking too much Dilaudid (3) Dehydration: will give IV fluids for the first 24 hours (4) Diabetes: diabetic diet monitor for hypoglycemia (5) Arthritis: chronic pain, takes Dilaudid 4mg q6 will find out where she gets this (6) Gout: Admission and Anticipated Discharge Date Admission Date: October 12, 2019 History of Present Illness Chief Complaint: I was laying in bed Primary Care Provider: Maty [facility] 74 yo female with history of chronic pain, weakness and falls who was just admitted at [facility] for falls but no fractures. She had a brief stay at [facility] rehab facility and returned home on Friday10/10/19. She was ambulating well while at rehab, did not have any falls there, pain was controlled. She was set up at home by her son, she had food, her medications. She said that she was profoundly fatigued and weak, she laid in bed all day Tuesday 10/10 and when home therapy came on Friday she was still in bed, the bed was wet with urine, she h ad not been eating or drinking. She was sleepy and a little confused. Brought to the ED, vitals stable, no lab abnormalities, numerous CT scans and x- rays that did not show a fracture. Specifically there was no periprosthetic fracture around right hip replacement. Admitted for weakness, possible fall at home, dehydration. Allergies Allergy/AdvReac Type Severity Reaction Status Date / Time Cephalosporins Allergy Intermediate RINGING OF Verified 10/12/19 17:21 EARS,FALLING BALANCE ISSUES prochlorperazine Allergy Intermediate STROKE Verified 10/12/19 17:21 LIKE SYMPTOMS, CAN'T TALK linezolid AdvReac Intermediate diarrhea,vo Verified 10/12/19 17:21 miting tramadol AdvReac Intermediate UNSTEADY Verified 10/12/19 17:21 ON FEET, HYPERACTIVITY morphine AdvReac Unknown NOT Verified 10/12/19 17:21 EFFECTIVE Home Medications Home Medications Medication Instructions Recorded Confirmed Type Janumet 1 tab PO QPM 10/21/17 10/12/19 History amlodipine 5 mg PO QAM 10/21/17 10/12/19 History aspirin [Aspirin Low Dose] 81 mg PO QAM 10/21/17 10/12/19 History clonidine HCl 0.1 mg PO BID 10/21/17 10/12/19 History clopidogrel 75 mg PO QAM 10/21/17 10/12/19 History duloxetine 60 mg PO QAM 10/21/17 10/12/19 History ferrous sulfate 325 mg PO DAILY 10/21/17 10/12/19 History furosemide 40 mg PO QAM 10/21/17 10/12/19 History lisinopril 40 mg PO QAM 10/21/17 10/12/19 History metoprolol succinate 100 mg PO HS 10/21/17 10/12/19 History pantoprazole 40 mg PO QAM 10/21/17 10/12/19 History potassium gluconate 297.5 mg PO QAM 10/21/17 10/12/19 History melatonin 10 mg PO HS 12/13/17 10/12/19 History gabapentin 600 mg PO TID 06/17/18 10/12/19 History magnesium oxide 500 mg PO QAM 12/17/18 10/12/19 History Levemir FlexTouch U-100 Insuln 15 unit SUBCUT DAILY 01/02/19 10/12/19 History diclofenac sodium 4 g TOPICAL QID PRN #100 g 10/01/19 10/12/19 Rx docusate sodium 100 mg PO BID 14 Days #28 cap 10/01/19 10/12/19 Rx atorvastatin 40 mg PO HS 10/12/19 10/12/19 History oxycodone-acetaminophen [Percocet] 1 tab PO Q4 PRN 10/12/19 10/12/19 History Past Med/Surg History Medical History Anemia Asthma CHF (congestive heart failure) Diabetes DVT (deep venous thrombosis) Fall Gout HTN (hypertension) Hypomagnesemia Intracranial hemorrhage (03/04/14) Subdural hematoma Surgical History H/O shoulder surgery History of hysterectomy Hx of appendectomy S/P IVC filter Family History Other Hypertension Seizures Social History Smoking Status: Never smoker Hx Alcohol Use: No Hx Substance Use: No Preferred Language: Welsh Communication Ability: Effective Visual Impairment: No Limitations 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: Normal 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 Beliefs That Will Affect Care: None marital status: / Current Living Situation: Alone Current Living Situation Comment: [place] Feels Safe at Home: Yes Review of Systems Review of Systems: All systems reviewed & are unremarkable except as noted in Subjective Constitutional: + fatigue and + weakness; no fever Respiratory: no cough and no dyspnea Cardiovascular: no chest pain, no palpitations, no syncope and no edema Gastrointestinal: no abdominal pain, no nausea, no vomiting, no constipation and no diarrhea/loose stools Musculoskeletal: + joint pain (right leg) Physical Exam Constitutional: well developed, well nourished and + frail appearing; no acute distress Eyes: PERRL, conjunctivae normal, anicteric sclerae ENMT: external ear and nose normal, oropharynx normal Neck: trachea midline, no thyromegaly Respiratory: normal respiratory effort, lungs clear to auscultation Auscultation: + diminished lung sounds (bases) Cardiovascular: RRR, no murmur, no edema Gastrointestinal (Abdomen): normal bowel sounds, soft, nontender, no hepatosplenomegaly Musculoskeletal: Head/Neck/Chest: normocephalic, head atraumatic and neck supple Extremities: extremities normal to inspection, + limited ROM of extremities (right leg due to pain) and + abnormal strength (generalized weakness); no cyanosis and no clubbing Skin: no rashes, warm and dry Neurologic: patellar DTR's 2+ bilat, sensation intact and PERRL, EOMI, accommodation nl, no face palsy, no dysarthria Psychiatric: Orientation: alert, oriented to person and cooperative; + not oriented to place and + not oriented to time Lymphatic: no cervical or axillary lymphadenopathy Results & Data Results & Data ([facility]) Vital Signs (Past 12 Hours) Vital Signs Temp Pulse Pulse Pulse Resp BP BP 10/12/19 19:27 36.8 C 73 18 157/99 H 10/12/19 18:52 71 19 167/79 H 10/12/19 18:30 67 20 10/12/19 18:01 62 12 10/12/19 18:00 63 18 179/81 H 10/12/19 17:31 64 20 10/12/19 17:30 65 15 183/81 H 10/12/19 17:01 64 20 10/12/19 17:00 65 15 169/82 H 10/12/19 16:31 64 18 10/12/19 16:30 64 16 170/89 H 10/12/19 16:24 70 22 190/80 H 10/12/19 16:01 54 L 24 160/54 H 10/12/19 16:00 58 L 21 10/12/19 15:38 64 66 20 142/86 H 142/86 H 10/12/19 15:37 67 18 10/12/19 15:00 57 L 20 138/58 L 10/12/19 14:35 61 20 10/12/19 14:32 63 22 10/12/19 14:31 63 19 137/107 H 10/12/19 14:30 64 23 10/12/19 14:01 62 22 10/12/19 14:00 62 23 160/71 H 10/12/19 13:31 61 20 10/12/19 13:30 60 17 154/87 H 10/12/19 13:16 67 16 10/12/19 13:07 62 15 134/69 10/12/19 12:43 36.8 C 66 18 134/69 Pulse Ox 10/12/19 19:27 99 10/12/19 18:52 10/12/19 18:30 10/12/19 18:01 96 10/12/19 18:00 97 10/12/19 17:31 96 10/12/19 17:30 97 10/12/19 17:01 10/12/19 17:00 10/12/19 16:31 10/12/19 16:30 10/12/19 16:24 10/12/19 16:01 98 10/12/19 16:00 96 10/12/19 15:38 99 10/12/19 15:37 98 10/12/19 15:00 96 10/12/19 14:35 99 10/12/19 14:32 99 10/12/19 14:31 100 10/12/19 14:30 99 10/12/19 14:01 96 10/12/19 14:00 97 10/12/19 13:31 94 10/12/19 13:30 96 10/12/19 13:16 97 10/12/19 13:07 96 10/12/19 12:43 97 Laboratory Results Laboratory Results - last 24 hr 10/12/19 10/12/19 10/12/19 14:15 14:15 14:15 WBC 7.74 RBC 4.43 Hgb 13.6 Hct 41.2 MCV 93.0 MCH 30.7 MCHC 33.0 RDW Std Deviation 47.5 H RDW Coeff of Parish 13.8 Plt Count 276 MPV 10.5 H Immature Gran % (Auto) 0.1 Neut % (Auto) 72.4 Lymph % (Auto) 22.9 [place] % (Auto) 3.0 Eos % (Auto) 1.2 Baso % (Auto) 0.4 Neut # (Auto) 5.61 Lymph # (Auto) 1.77 [place] # (Auto) 0.23 Eos # (Auto) 0.09 Baso # (Auto) 0.03 Immature Gran # (Auto) 0.01 PT 11.5 INR 1.1 APTT 30.3 PTT Ratio 1.1 Sodium 139 Potassium 3.8 Chloride 102 Carbon Dioxide 31 Anion Gap 6.0 BUN 17 Creatinine 0.86 Est Cr Clr Drug Dosing 58.9 Est GFR ( Amer) 76.6 Est GFR (Non-Af Amer) 66.1 BUN/Creatinine Ratio 20.3 H Glucose 127 H POC Glucose Calcium 9.6 Phosphorus 4.1 Magnesium 1.8 Total Bilirubin 0.9 Direct Bilirubin 0.2 AST 19 ALT 21 Alkaline Phosphatase 127 H Ammonia Total Creatine Kinase 37 Troponin I < 0.015 Total Protein 8.2 Albumin 3.7 Globulin 4.5 H Albumin/Globulin Ratio 0.8 L Lipase 64 L TSH 0.999 Urine Color Urine Appearance Urine pH Ur Specific [place] Urine Protein Urine Glucose (UA) Urine Ketones Urine Blood Urine Nitrite Urine Bilirubin Urine Urobilinogen Ur Leukocyte Esterase 10/12/19 10/12/19 10/12/19 14:15 16:15 16:21 WBC RBC Hgb Hct MCV MCH MCHC RDW Std Deviation RDW Coeff of [place] Plt Count MPV Immature Gran % (Auto) Neut % (Auto) Lymph % (Auto) [place] % (Auto) Eos % (Auto) Baso % (Auto) Neut # (Auto) Lymph # (Auto) [place] # (Auto) Eos # (Auto) Baso # (Auto) Immature Gran # (Auto) PT INR APTT PTT Ratio Sodium Potassium Chloride Carbon Dioxide Anion Gap BUN Creatinine Est Cr Clr Drug Dosing Est GFR ( Amer) Est GFR (Non-Af Amer) BUN/Creatinine Ratio Glucose POC Glucose Calcium Phosphorus Magnesium Total Bilirubin Direct Bilirubin AST ALT Alkaline Phosphatase Ammonia Cancelled < 10.0 L Total Creatine Kinase Troponin I Total Protein Albumin Globulin Albumin/Globulin Ratio Lipase TSH Urine Color Yellow Urine Appearance Clear Urine pH >= 9.0 H Ur Specific [place] 1.021 Urine Protein Negative Urine Glucose (UA) Negative Urine Ketones Negative Urine Blood Negative Urine Nitrite Negative Urine Bilirubin Negative Urine Urobilinogen Negative Ur Leukocyte Esterase Negative 10/12/19 20:57 WBC RBC Hgb Hct MCV MCH MCHC RDW Std Deviation RDW Coeff of [place] Plt Count MPV Immature Gran % (Auto) Neut % (Auto) Lymph % (Auto) [place] % (Auto) Eos % (Auto) Baso % (Auto) Neut # (Auto) Lymph # (Auto) [place] # (Auto) Eos # (Auto) Baso # (Auto) Immature Gran # (Auto) PT INR APTT PTT Ratio Sodium Potassium Chloride Carbon Dioxide Anion Gap BUN Creatinine Est Cr Clr Drug Dosing Est GFR ( Amer) Est GFR (Non-Af Amer) BUN/Creatinine Ratio Glucose POC Glucose 161 H Calcium Phosphorus Magnesium Total Bilirubin Direct Bilirubin AST ALT Alkaline Phosphatase Ammonia Total Creatine Kinase Troponin I Total Protein Albumin Globulin Albumin/Globulin Ratio Lipase TSH Urine Color Urine Appearance Urine pH Ur Specific [place] Urine Protein Urine Glucose (UA) Urine Ketones Urine Blood Urine Nitrite Urine Bilirubin Urine Urobilinogen Ur Leukocyte Esterase Diagnostic Findings Femur x-ray IMPRESSION: 1. There is no radiographic evidence of right femoral fracture. 2. A right hip arthroplasty is in near-anatomic alignment. CT CHEST ABDOMEN PELVIS IMPRESSION: 1. There is no acute posttraumatic intrathoracic abnormality. 2. There is no airspace consolidation, pleural effusion, or pneumothorax. 3. Mild cardiomegaly. 4. There is no evidence of solid organ injury in the abdomen or pelvis. 5. Mild colonic diverticulosis without CT evidence of acute diverticulitis. 6. Additional findings as above. CT CERVICAL SPINE IMPRESSION: No evidence of acute fracture or traumatic subluxation. Code Status & VTE Plan VTE Prophylaxis Plan VTE Prophylaxis will be ordered: No PG Care Time/CCT Total # of Minutes Spent Total Time Spent with Patient: Total time spent is greater than 50% in coordination of care (as documented) at patient's floor/unit and/or counseling patient: Coding Level of Care Code 27766 OBS Care - Level 3 Diagnoses Weakness R53.1 Confusion R41.0 Dehydration E86.0 Diabetes E11.9 Arthritis M19.90 Gout M10.9
[2019-10-13] MEDS: HYDROmorphone HCL 2 MG TAB PO PRN ×3 (03:47→21:06)
--- NOTE | 2019-10-13 05:59 | Electrocardiogram Report ---
Test Reason : Blood Pressure : / mmHG Vent. Rate : 059 BPM Atrial Rate : 059 BPM P-R Int : 176 ms QRS Dur : 094 ms QT Int : 452 ms P-R-T Axes : -16 -35 000 degrees QTc Int : 447 ms Sinus bradycardia Left axis deviation Abnormal ECG When compared with ECG of 26-SEP-2019 14:25, Vent. rate has decreased BY 31 BPM Confirmed by Alen Moreno ([id number]) on 10/13/2019 5:58:35 AM Referred By: REFERRED SELF Confirmed By:Alen Moreno
[2019-10-13 07:17] LABS: Hematocrit (blood only) 41.7 % (37-47); Hemoglobin 13.7 g/dL (12.0-16.0); Mean Corpuscular Hemoglobin 31.4 pg (25-34); Mean Corpuscular Hgb Conc 32.9 g/dL (32-36); Mean Corpuscular Volume 95.4 fL (80-100); Mean Platelet Volume 11.1 fL (7.4-10.4); Platelet Count 234 K/uL (130-400); RDW Standard Deviation 49.3 fL (36.4-46.3); Red Blood Count 4.37 M/uL (4.2-5.4); White Blood Count 6.54 K/uL (4.8-10.8)
[2019-10-13 07:51] LABS: Calcium 8.8 mg/dl (8.5-10.1); Creatinine Clr Calc Pharmacy 55.4 ml/min; Est GFR (African American) 68.8; Est GFR (Non-African American) 59.3; Potassium 3.8 mmol/L (3.5-5.1)
[2019-10-13] MEDS: FERROUS SULFATE 325 MG TAB PO SCH ×2 (08:42→21:08)
[2019-10-13] MEDS: DOCUSATE SODIUM 100 MG CAP PO SCH ×2 (08:42→21:08)
[2019-10-13] MEDS: PANTOprazole 40 MG TAB PO SCH (08:43)
[2019-10-13] MEDS: cloNIDine HCL 0.1 MG TAB PO SCH ×2 (08:43→21:07)
[2019-10-13] MEDS: ASPIRIN 81 MG ECTAB PO SCH (08:43)
[2019-10-13] MEDS: GABAPENTIN 600 MG TAB PO SCH ×3 (08:43→21:09)
[2019-10-13] MEDS: INSULIN DETEMIR FLEXPEN/FLEX TOUCH 100 UNITS/ML 3ML SQ SCH (08:44)
[2019-10-13] MEDS: AMLODIPINE BESYLATE 5 MG TAB PO SCH (08:44)
[2019-10-13] MEDS: CLOPIDOGREL BISULFATE 75 MG TAB PO SCH (08:44)
[2019-10-13] MEDS: lisinopriL 40 MG TAB PO SCH (08:44)
[2019-10-13] MEDS: DULOXETINE HCL 60 MG CAP PO SCH (08:44)
[2019-10-13] MEDS: INSULIN ASPART 100 UNITS/ML 3 ML PEN SC SCH ×4 (08:47→21:11)
[2019-10-13] MEDS: bisacodyL 5 MG TABEC PO PRN (11:22)
[2019-10-13] MEDS: METOPROLOL SUCC 50MG EXT REL TAB PO SCH (21:10)
--- NOTE | 2019-10-13 23:23 | Hospitalist Progress Note ---
Date of Service October 13, 2019 Assessment & Plan (1) Weakness: discharged from [facility] for rehab on Monday 10/09 presents to ED two days later, found in her bed, soaked with urine, not getting up she cannot explain how she is getting her meals very weak on exam, all extremities no obvious lab abnormalities no fractures on numerous x-rays and CT scans consult PT/OT - work towards a safe discharge plan, she insists she does not want SNF CM working on talking with her son (2) Confusion: clearing up, suspect she was taking too much Dilaudid (3) Dehydration: will give IV fluids for the first 24 hours Cr is stable, electrolytes stable, drinking adequate amounts will stop fluids (4) Diabetes: diabetic diet monitor for hypoglycemia, no episodes (5) Arthritis: chronic pain, takes Dilaudid 4mg q6 will find out where she gets this (6) Gout: Admission and Anticipated Discharge Date Admission Date: October 12, 2019 Subjective patient doing a lot better after IV fluids and rest she is willing to do PT/OT she is eating better focused on getting her Dilaudid, tends to ask for more than needed reviewed labs, stable Review of Systems Review of Systems: All systems reviewed & are unremarkable except as noted in Subjective Physical Exam Constitutional: well developed, well nourished and + frail appearing; no acute distress Eyes: PERRL, conjunctivae normal, anicteric sclerae ENMT: external ear and nose normal, oropharynx normal Neck: trachea midline, no thyromegaly Respiratory: normal respiratory effort, lungs clear to auscultation Auscultation: + diminished lung sounds (bases) Cardiovascular: RRR, no murmur, no edema Gastrointestinal (Abdomen): normal bowel sounds, soft, nontender, no hepatosplenomegaly Musculoskeletal: Head/Neck/Chest: normocephalic, head atraumatic and neck supple Extremities: extremities normal to inspection, + limited ROM of extremities (right leg due to pain) and + abnormal strength (generalized weakness); no cyanosis and no clubbing Skin: no rashes, warm and dry Neurologic: patellar DTR's 2+ bilat, sensation intact and PERRL, EOMI, accommodation nl, no face palsy, no dysarthria Psychiatric: Orientation: alert, oriented to person and cooperative; + not oriented to place and + not oriented to time Lymphatic: no cervical or axillary lymphadenopathy Results & Data Results & Data ([facility]) Vital Signs (Past 12 Hours) Vital Signs Temp Pulse Pulse Resp BP BP Pulse Ox 10/13/19 15:12 53 L 10/13/19 14:49 36.8 C 61 22 101/57 L 94 10/13/19 11:34 36.6 C 54 L 18 117/75 97 Laboratory Results Laboratory Results - last 24 hr 10/13/19 10/13/19 10/13/19 06:31 06:31 07:59 WBC 6.54 RBC 4.37 Hgb 13.7 Hct 41.7 MCV 95.4 MCH 31.4 MCHC 32.9 RDW Std Deviation 49.3 H RDW Coeff of [place] 14.0 Plt Count 234 MPV 11.1 H Sodium 137 Potassium 3.8 Chloride 102 Carbon Dioxide 29 Anion Gap 6.0 BUN 18 Creatinine 0.94 Est Cr Clr Drug Dosing 55.4 Est GFR ( Amer) 68.8 Est GFR (Non-Af Amer) 59.3 BUN/Creatinine Ratio 19.0 Glucose 164 H POC Glucose 147 H Calcium 8.8 10/13/19 10/13/19 10/13/19 11:41 16:46 20:17 WBC RBC Hgb Hct MCV MCH MCHC RDW Std Deviation RDW Coeff of [place] Plt Count MPV Sodium Potassium Chloride Carbon Dioxide Anion Gap BUN Creatinine Est Cr Clr Drug Dosing Est GFR ( Amer) Est GFR (Non-Af Amer) BUN/Creatinine Ratio Glucose POC Glucose 113 H 144 H 83 Calcium Medications Administered Current Inpatient Medications Acetaminophen (Acetaminophen 325 Mg Tab) 650 mg PO Q4H PRN PRN Reason: pain/fever Stop: 11/11/19 19:26 Amlodipine Besylate (Amlodipine Besylate 5 Mg Tab) 5 mg PO QAM BARRY Stop: 11/12/19 08:59 Last Admin: 10/13/19 08:44 Dose: 5 mg Documented by: Aspirin (Aspirin 81 Mg Ectab) 81 mg PO QAM BARRY Stop: 11/12/19 08:59 Last Admin: 10/13/19 08:43 Dose: 81 mg Documented by: Bisacodyl (Bisacodyl 5 Mg Tabec) 5 mg PO QAM PRN PRN Reason: constipation Stop: 11/11/19 19:26 Last Admin: 10/13/19 11:22 Dose: 5 mg Documented by: Clonidine HCl (Clonidine Hcl 0.1 Mg Tab) 0.1 mg PO BID BARRY Stop: 11/11/19 20:59 Last Admin: 10/13/19 21:07 Dose: 0.1 mg Documented by: Clopidogrel Bisulfate (Clopidogrel Bisulfate 75 Mg Tab) 75 mg PO QAM [facility] Stop: 11/12/19 08:59 Last Admin: 10/13/19 08:44 Dose: 75 mg Documented by: Dextrose (Dextrose 50% 50 Ml Syringe) 25 - 50 ml IV UD PRN; Protocol PRN Reason: Hypoglycemia Protocol Stop: 11/11/19 19:44 Diclofenac Sodium (Diclofenac Sod 1% Gel 100 Gm Tube) 4 gm EXT QID PRN PRN Reason: pain Stop: 11/11/19 19:26 Docusate Sodium (Docusate Sodium 100 Mg Cap) 100 mg PO BID [facility] Stop: 11/11/19 20:59 Last Admin: 10/13/19 21:08 Dose: 100 mg Documented by: Duloxetine HCl (Duloxetine Hcl 60 Mg Cap) 60 mg PO QAM [facility] Stop: 11/12/19 08:59 Last Admin: 10/13/19 08:44 Dose: 60 mg Documented by: Ferrous Sulfate (Ferrous Sulfate 325 Mg Tab) 325 mg PO BID BARRY Stop: 11/11/19 20:59 Last Admin: 10/13/19 21:08 Dose: 325 mg Documented by: Gabapentin (Gabapentin 600 Mg Tab) 600 mg PO TID [facility] Stop: 11/11/19 20:59 Last Admin: 10/13/19 21:09 Dose: 600 mg Documented by: Glucagon (Glucagon For Inj 1 Mg Vial) 1 mg IM UD PRN; Protocol PRN Reason: Hypoglycemia Protocol Stop: 11/11/19 19:44 Glucose (Glucose 40% Gel 15 Gm Tube) 15 - 30 gm PO UD PRN; Protocol PRN Reason: Hypoglycemia Protocol Stop: 11/11/19 19:44 Glucose (Glucose 10 Tabs/Tube) 4 - 8 tabs PO UD PRN; Protocol PRN Reason: Hypoglycemia Protocol Stop: 11/11/19 19:44 Hydromorphone HCl (Hydromorphone Hcl 2 Mg Tab) 4 mg PO Q6H PRN PRN Reason: Pain Stop: 10/26/19 20:41 Last Admin: 10/13/19 21:06 Dose: 4 mg Documented by: Insulin Aspart (Insulin Aspart 100 Units/Ml 3 Ml Pen) 0 units SC ACHS [facility] Stop: 11/11/19 20:59 Last Admin: 10/13/19 21:11 Dose: Not Given Documented by: Insulin Detemir (Insulin Detemir Flexpen/Flex Touch 100 Units/Ml 3ml) 15 units SQ DAILY [facility] Stop: 11/12/19 08:59 Last Admin: 10/13/19 08:44 Dose: 15 units Documented by: Lisinopril (Lisinopril 40 Mg Tab) 40 mg PO QAM [facility] Stop: 11/12/19 08:59 Last Admin: 10/13/19 08:44 Dose: 40 mg Documented by: Metoprolol Succinate (Metoprolol Succ 50mg Ext Rel Tab) 100 mg PO HS [facility] Stop: 11/11/19 20:59 Last Admin: 10/13/19 21:10 Dose: Not Given Documented by: Miscellaneous (Carbohydrates For Hypoglycemia ) 15 - 30 gm PO UD PRN PRN Reason: Hypoglycemia Treatment Stop: 11/11/19 19:44 Ondansetron HCl (Ondansetron Inj 2 Mg/Ml 2 Ml Vial) 4 mg IV Q6H PRN PRN Reason: Nausea Stop: 11/11/19 19:26 Pantoprazole Sodium (Pantoprazole 40 Mg Tab) 40 mg PO QAM [facility] Stop: 11/12/19 08:59 Last Admin: 10/13/19 08:43 Dose: 40 mg Documented by: PG Care Time/CCT Total # of Minutes Spent Total Time Spent with Patient: Total time spent is greater than 50% in coordination of care (as documented) at patient's floor/unit and/or counseling patient: Coding Level of Care Code 56578 Subseq Obs Care Lvl 2 Diagnoses Weakness R53.1 Confusion R41.0 Dehydration E86.0 Diabetes E11.9 Arthritis M19.90 Gout M10.9
[2019-10-14] MEDS: DICLOFENAC SOD 1% GEL 100 GM TUBE EXT PRN (02:15)
[2019-10-14] MEDS: HYDROmorphone HCL 2 MG TAB PO PRN ×3 (02:57→20:55)
[2019-10-14] MEDS: AMLODIPINE BESYLATE 5 MG TAB PO SCH (08:10)
[2019-10-14] MEDS: lisinopriL 40 MG TAB PO SCH (08:10)
[2019-10-14] MEDS: CLOPIDOGREL BISULFATE 75 MG TAB PO SCH (08:10)
[2019-10-14] MEDS: DULOXETINE HCL 60 MG CAP PO SCH (08:10)
[2019-10-14] MEDS: PANTOprazole 40 MG TAB PO SCH (08:10)
[2019-10-14] MEDS: GABAPENTIN 600 MG TAB PO SCH ×3 (08:11→20:52)
[2019-10-14] MEDS: cloNIDine HCL 0.1 MG TAB PO SCH ×2 (08:11→20:50)
[2019-10-14] MEDS: DOCUSATE SODIUM 100 MG CAP PO SCH ×2 (08:11→20:51)
[2019-10-14] MEDS: ASPIRIN 81 MG ECTAB PO SCH (08:11)
[2019-10-14] MEDS: FERROUS SULFATE 325 MG TAB PO SCH ×2 (08:11→20:52)
[2019-10-14] MEDS: INSULIN DETEMIR FLEXPEN/FLEX TOUCH 100 UNITS/ML 3ML SQ SCH (08:12)
[2019-10-14] MEDS: INSULIN ASPART 100 UNITS/ML 3 ML PEN SC SCH ×4 (08:13→20:53)
[2019-10-14] MEDS: METOPROLOL SUCC 50MG EXT REL TAB PO SCH (20:52)
--- NOTE | 2019-10-14 23:09 | Hospitalist Progress Note ---
Date of Service October 14, 2019 Assessment & Plan (1) Weakness: discharged from [facility] for rehab on Monday 10/09 presents to ED two days later, found in her bed, soaked with urine, not getting up she cannot explain how she is getting her meals very weak on exam, all extremities no obvious lab abnormalities no fractures on numerous x-rays and CT scans consult PT/OT - work towards a safe discharge plan, she insists she does not want SNF CM working on talking with her son, he is looking into getting her healthcare receptionist, controlling her Dilaudid (2) Confusion: resolved, suspect she was taking too much Dilaudid (3) Dehydration: gave IV fluids for the first 24 hours Cr is stable, electrolytes stable, drinking adequate amounts (4) Diabetes: diabetic diet monitor for hypoglycemia, no episodes (5) Arthritis: chronic pain, takes Dilaudid 4mg q6 will find out where she gets this (6) Gout: Admission and Anticipated Discharge Date Admission Date: October 12, 2019 Subjective patient walked in the hallway with therapy, doing really well no walker needed when she is taking appropriate levels of Dilaudid she is alert behavioral health case manager spoke with her sonJeff he has to take her to [place] to see painter helper sign because the specialists in [place] have refused to see her she tends to take too much Dilaudid, as suspected her son brings a small amount of pills over at a time, but she may take them too often suspect that is what caused her to be sleeping for over 24 hours after getting home from [facility] Review of Systems Review of Systems: All systems reviewed & are unremarkable except as noted in Subjective Musculoskeletal: + joint pain Physical Exam Constitutional: well developed, well nourished and + frail appearing; no acute distress Eyes: PERRL, conjunctivae normal, anicteric sclerae ENMT: external ear and nose normal, oropharynx normal Neck: trachea midline, no thyromegaly Respiratory: normal respiratory effort, lungs clear to auscultation Auscultation: + diminished lung sounds (bases) Cardiovascular: RRR, no murmur, no edema Gastrointestinal (Abdomen): normal bowel sounds, soft, nontender, no hepatosplenomegaly Musculoskeletal: Head/Neck/Chest: normocephalic, head atraumatic and neck supple Extremities: extremities normal to inspection, + limited ROM of extremities (right leg due to pain) and + abnormal strength (generalized weakness); no cyanosis and no clubbing Skin: no rashes, warm and dry Neurologic: patellar DTR's 2+ bilat, sensation intact and PERRL, EOMI, accommodation nl, no face palsy, no dysarthria Psychiatric: A+Ox3, euthymic affect Lymphatic: no cervical or axillary lymphadenopathy Results & Data Results & [facility] ([facility]) Vital Signs (Past 12 Hours) Vital Signs Temp Pulse Resp BP Pulse Ox 10/14/19 16:13 36.3 C L 63 18 127/73 97 Medications Administered Laboratory Results - last 24 hr 10/14/19 10/14/19 10/14/19 07:34 11:27 17:02 POC Glucose 136 H 113 H 114 H 10/14/19 20:50 POC Glucose 122 H PG Care Time/CCT Total # of Minutes Spent Total Time Spent with Patient: Total time spent is greater than 50% in coordination of care (as documented) at patient's floor/unit and/or counseling patient: Coding Level of Care Code 30872 Subseq Obs Care Lvl 2 Diagnoses Weakness R53.1 Confusion R41.0 Dehydration E86.0 Diabetes E11.9 Arthritis M19.90 Gout M10.9
[2019-10-15] MEDS: bisacodyL 5 MG TABEC PO PRN (07:40)
[2019-10-15] MEDS: HYDROmorphone HCL 2 MG TAB PO PRN ×2 (07:40→20:10)
[2019-10-15] MEDS: DOCUSATE SODIUM 100 MG CAP PO SCH ×2 (07:40→20:01)
[2019-10-15] MEDS: AMLODIPINE BESYLATE 5 MG TAB PO SCH (07:41)
[2019-10-15] MEDS: PANTOprazole 40 MG TAB PO SCH (07:41)
[2019-10-15] MEDS: cloNIDine HCL 0.1 MG TAB PO SCH ×2 (07:41→20:02)
[2019-10-15] MEDS: DULOXETINE HCL 60 MG CAP PO SCH (07:41)
[2019-10-15] MEDS: ASPIRIN 81 MG ECTAB PO SCH (07:41)
[2019-10-15] MEDS: lisinopriL 40 MG TAB PO SCH (07:41)
[2019-10-15] MEDS: GABAPENTIN 600 MG TAB PO SCH ×3 (07:41→20:01)
[2019-10-15] MEDS: CLOPIDOGREL BISULFATE 75 MG TAB PO SCH (07:41)
[2019-10-15] MEDS: FERROUS SULFATE 325 MG TAB PO SCH ×2 (07:42→20:02)
[2019-10-15] MEDS: INSULIN DETEMIR FLEXPEN/FLEX TOUCH 100 UNITS/ML 3ML SQ SCH (08:44)
[2019-10-15] MEDS: DICLOFENAC SOD 1% GEL 100 GM TUBE EXT PRN (08:44)
[2019-10-15] MEDS: INSULIN ASPART 100 UNITS/ML 3 ML PEN SC SCH ×4 (08:45→20:07)
--- NOTE | 2019-10-15 16:05 | Hospitalist Progress Note ---
Date of Service October 15, 2019 Assessment & Plan (1) Weakness: discharged from [facility] for rehab on Monday 10/09 presents to ED two days later, found in her bed, soaked with urine, not getting up she cannot explain how she is getting her meals very weak on exam, all extremities no obvious lab abnormalities no fractures on numerous x-rays and CT scans consult PT/OT - work towards a safe discharge plan, she insists she does not want SNF CM working on talking with her son, he is looking into getting her direct care provider, controlling her Dilaudid will go home tomorrow (2) Confusion: resolved, suspect she was taking too much Dilaudid (3) Dehydration: gave IV fluids for the first 24 hours Cr is stable, electrolytes stable, drinking adequate amounts (4) Diabetes: diabetic diet monitor for hypoglycemia, no episodes (5) Arthritis: chronic pain, takes Dilaudid 4mg q6 will find out where she gets this (6) Gout: Admission and Anticipated Discharge Date Admission Date: October 12, 2019 Subjective patient very happy, full of energy today eating well plan in place for her to return home tomorrow with direct care provider, a friend, Janki CM has ironed out details with her son Jeff vitals stable pain is controlled Review of Systems Review of Systems: All systems reviewed & are unremarkable except as noted in Subjective Musculoskeletal: + joint pain Physical Exam Constitutional: well developed, well nourished and + frail appearing; no acute distress Eyes: PERRL, conjunctivae normal, anicteric sclerae ENMT: external ear and nose normal, oropharynx normal Neck: trachea midline, no thyromegaly Respiratory: normal respiratory effort, lungs clear to auscultation Auscultation: + diminished lung sounds (bases) Cardiovascular: RRR, no murmur, no edema Gastrointestinal (Abdomen): normal bowel sounds, soft, nontender, no hepatosplenomegaly Musculoskeletal: Head/Neck/Chest: normocephalic, head atraumatic and neck supple Extremities: extremities normal to inspection, + limited ROM of extremities (right leg due to pain) and + abnormal strength (generalized weakness); no cyanosis and no clubbing Skin: no rashes, warm and dry Neurologic: patellar DTR's 2+ bilat, sensation intact and PERRL, EOMI, accommodation nl, no face palsy, no dysarthria Psychiatric: A+Ox3, euthymic affect Lymphatic: no cervical or axillary lymphadenopathy Results & Data Results & Data ([facility]) Vital Signs (Past 12 Hours) Vital Signs Temp Pulse Resp BP BP Pulse Ox 10/15/19 15:38 36.3 C L 62 18 108/64 94 10/15/19 07:22 36.6 C 61 18 167/74 H 97 Medications Administered Current Inpatient Medications Acetaminophen (Acetaminophen 325 Mg Tab) 650 mg PO Q4H PRN PRN Reason: pain/fever Stop: 11/11/19 19:26 Amlodipine Besylate (Amlodipine Besylate 5 Mg Tab) 5 mg PO QAM ON LICENSE OF [facility] Stop: 11/12/19 08:59 Last Admin: 10/15/19 07:41 Dose: 5 mg Documented by: Aspirin (Aspirin 81 Mg Ectab) 81 mg PO QAM ON LICENSE OF [facility] Stop: 11/12/19 08:59 Last Admin: 10/15/19 07:41 Dose: 81 mg Documented by: Bisacodyl (Bisacodyl 5 Mg Tabec) 5 mg PO QAM PRN PRN Reason: constipation Stop: 11/11/19 19:26 Last Admin: 10/15/19 07:40 Dose: 5 mg Documented by: Clonidine HCl (Clonidine Hcl 0.1 Mg Tab) 0.1 mg PO BID ON LICENSE OF [facility] Stop: 11/11/19 20:59 Last Admin: 10/15/19 07:41 Dose: 0.1 mg Documented by: Clopidogrel Bisulfate (Clopidogrel Bisulfate 75 Mg Tab) [facility] Stop: 11/12/19 08:59 Last Admin: 10/15/19 07:41 Dose: 75 mg Documented by: Dextrose (Dextrose 50% 50 Ml Syringe) 25 - 50 ml IV UD PRN; Protocol PRN Reason: Hypoglycemia Protocol Stop: 11/11/19 19:44 Diclofenac Sodium (Diclofenac Sod 1% Gel 100 Gm Tube) 4 gm EXT QID PRN PRN Reason: pain Stop: 11/11/19 19:26 Last Admin: 10/15/19 08:44 Dose: 4 gm Documented by: Docusate Sodium (Docusate Sodium 100 Mg Cap) 100 mg PO BID ON LICENSE OF [facility] Stop: 11/11/19 20:59 Last Admin: 10/15/19 07:40 Dose: 100 mg Documented by: Duloxetine HCl (Duloxetine Hcl 60 Mg Cap) 60 [facility] [place] Stop: 11/12/19 08:59 Last Admin: 10/15/19 07:41 Dose: 60 mg Documented by: Ferrous Sulfate (Ferrous Sulfate 325 Mg Tab) 325 mg PO BID BARRY Stop: 11/11/19 20:59 Last Admin: 10/15/19 07:42 Dose: 325 mg Documented by: Gabapentin (Gabapentin 600 Mg Tab) 600 mg PO TID BARRY Stop: 11/11/19 20:59 Last Admin: 10/15/19 13:29 Dose: 600 mg Documented by: Glucagon (Glucagon For Inj 1 Mg Vial) 1 mg IM UD PRN; Protocol PRN Reason: Hypoglycemia Protocol Stop: 11/11/19 19:44 Glucose (Glucose 40% Gel 15 Gm Tube) 15 - 30 gm PO UD PRN; Protocol PRN Reason: Hypoglycemia Protocol Stop: 11/11/19 19:44 Glucose (Glucose 10 Tabs/Tube) 4 - 8 tabs PO UD PRN; Protocol PRN Reason: Hypoglycemia Protocol Stop: 11/11/19 19:44 Hydromorphone HCl (Hydromorphone Hcl 2 Mg Tab) 4 mg PO Q6H PRN PRN Reason: Pain Stop: 10/26/19 20:41 Last Admin: 10/15/19 07:40 Dose: 4 mg Documented by: Insulin Aspart (Insulin Aspart 100 Units/Ml 3 Ml Pen) 0 units SC ACHS BARRY Stop: 11/11/19 20:59 Last Admin: 10/15/19 13:29 Dose: 8 units Documented by: Insulin Detemir (Insulin Detemir Flexpen/Flex Touch 100 Units/Ml 3ml) 15 units SQ DAILY BARRY Stop: 11/12/19 08:59 Last Admin: 10/15/19 08:44 Dose: 15 units Documented by: Lisinopril (Lisinopril 40 Mg Tab) 40 mg PO QAM BARRY Stop: 11/12/19 08:59 Last Admin: 10/15/19 07:41 Dose: 40 mg Documented by: Metoprolol Succinate (Metoprolol Succ 50mg Ext Rel Tab) 100 mg PO HS ON LICENSE OF [facility] Stop: 11/11/19 20:59 Last Admin: 10/14/19 20:52 Dose: 100 mg Documented by: Miscellaneous (Carbohydrates For Hypoglycemia ) 15 - 30 gm PO UD PRN PRN Reason: Hypoglycemia Treatment Stop: 11/11/19 19:44 Ondansetron HCl (Ondansetron Inj 2 Mg/Ml 2 Ml Vial) 4 mg IV Q6H PRN PRN Reason: Nausea Stop: 11/11/19 19:26 Pantoprazole Sodium (Pantoprazole 40 Mg Tab) 40 mg PO QAM ON LICENSE OF [facility] Stop: 11/12/19 08:59 Last Admin: 10/15/19 07:41 Dose: 40 mg Documented by: PG Care Time/CCT Total # of Minutes Spent Total Time Spent with Patient: Total time spent is greater than 50% in coordination of care (as documented) at patient's floor/unit and/or counseling patient: Coding Level of Care Code 47646 Subseq Obs Care Lvl 1 Diagnoses Weakness R53.1 Confusion R41.0 Dehydration E86.0 Diabetes E11.9 Arthritis M19.90 Gout M10.9
[2019-10-15] MEDS: METOPROLOL SUCC 50MG EXT REL TAB PO SCH (20:02)
[2019-10-16] MEDS: INSULIN ASPART 100 UNITS/ML 3 ML PEN SC SCH ×2 (08:27→12:39)
[2019-10-16] MEDS: INSULIN DETEMIR FLEXPEN/FLEX TOUCH 100 UNITS/ML 3ML SQ SCH (08:27)
[2019-10-16] MEDS: lisinopriL 40 MG TAB PO SCH (08:33)
[2019-10-16] MEDS: FERROUS SULFATE 325 MG TAB PO SCH (08:33)
[2019-10-16] MEDS: DOCUSATE SODIUM 100 MG CAP PO SCH (08:33)
[2019-10-16] MEDS: PANTOprazole 40 MG TAB PO SCH (08:33)
[2019-10-16] MEDS: AMLODIPINE BESYLATE 5 MG TAB PO SCH (08:33)
[2019-10-16] MEDS: cloNIDine HCL 0.1 MG TAB PO SCH (08:33)
[2019-10-16] MEDS: GABAPENTIN 600 MG TAB PO SCH ×2 (08:33→12:39)
[2019-10-16] MEDS: DULOXETINE HCL 60 MG CAP PO SCH (08:33)
[2019-10-16] MEDS: CLOPIDOGREL BISULFATE 75 MG TAB PO SCH (08:33)
[2019-10-16] MEDS: ASPIRIN 81 MG ECTAB PO SCH (08:38)
[2019-10-16] MEDS: HYDROmorphone HCL 2 MG TAB PO PRN ×2 (08:38→14:21)
--- NOTE | 2019-10-16 15:27 | Discharge Summary ---
Date of Service October 16, 2019 Admission HPI Per Admitting Provider 74 yo female with history of chronic pain, weakness and falls who was just admitted at [facility] for falls but no fractures. She had a brief stay at [facility] rehab facility and returned home on Friday10/10/19. She was ambulating well while at rehab, did not have any falls there, pain was controlled. She was set up at home by her son, she had food, her medications. She said that she was profoundly fatigued and weak, she laid in bed all day Tuesday 10/10 and when home therapy came on Friday she was still in bed, the bed was wet with urine, she had not been eating or drinking. She was sleepy and a little confused. Brought to the ED, vitals stable, no lab abnormalities, numerous CT scans and x- rays that did not show a fracture. Specifically there was no periprosthetic fracture around right hip replacement. Admitted for weakness, possible fall at home, dehydration. Principal Diagnosis Weakness and confusion due to Dilaudid Discharge Exam Constitutional well developed, well nourished and + frail appearing; no acute distress Eyes PERRL, conjunctivae normal, anicteric sclerae ENMT external ear and nose normal, oropharynx normal Neck trachea midline, no thyromegaly Respiratory normal respiratory effort, lungs clear to auscultation Auscultation: + diminished lung sounds (bases) Cardiovascular RRR, no murmur, no edema Gastrointestinal (Abdomen) normal bowel sounds, soft, nontender, no hepatosplenomegaly Musculoskeletal Head/Neck/Chest: normocephalic, head atraumatic and neck supple Extremities: extremities normal to inspection, + limited ROM of extremities (right leg due to pain) and + abnormal strength (generalized weakness); no cyanosis and no clubbing Skin no rashes, warm and dry Neurologic patellar DTR's 2+ bilat, sensation intact and PERRL, EOMI, accommodation nl, no face palsy, no dysarthria Psychiatric A+Ox3, euthymic affect Orientation: alert, oriented to person and cooperative; + not oriented to place and + not oriented to time Lymphatic no cervical or axillary lymphadenopathy Discharge Data Allergies Allergy/AdvReac Type Severity Reaction Status Date / Time Cephalosporins Allergy Intermediate RINGING OF Verified 10/12/19 17:21 EARS,FALLING BALANCE ISSUES prochlorperazine Allergy Intermediate STROKE Verified 10/12/19 17:21 LIKE SYMPTOMS, CAN'T TALK linezolid AdvReac Intermediate diarrhea,vo Verified 10/12/19 17:21 miting tramadol AdvReac Intermediate UNSTEADY Verified 10/12/19 17:21 ON FEET, HYPERACTIVITY morphine AdvReac Unknown NOT Verified 10/12/19 17:21 EFFECTIVE Consultations 10/12/19 16:46 ED Decision to Admit Stat 10/12/19 19:27 Consult Case Management - Discharge Planning Routine Ordered Studies 10/12/19 13:43 CT abd pelvis IV con only Stat CT cervical spine wo con Stat CT chest w con Stat CT head/brain wo con Stat Hospital Course (1) Weakness: discharged from [facility] for rehab on Monday 10/09 presents to ED two days later, found in her bed, soaked with urine, not getting up she cannot explain how she is getting her meals very weak on exam, all extremities no obvious lab abnormalities no fractures on numerous x-rays and CT scans consult PT/OT - work towards a safe discharge plan, she insists she does not want SNF CM working on talking with her son, he is looking into getting her manager critical care unit, controlling her Dilaudid will go home today arranged for friend/manager critical care unit to stay with patient, will make sure she does not take too much Dilaudid (2) Confusion: resolved, suspect she was taking too much Dilaudid (3) Dehydration: gave IV fluids for the first 24 hours Cr is stable, electrolytes stable, drinking adequate amounts (4) Diabetes: diabetic diet monitor for hypoglycemia, no episodes (5) Arthritis: chronic pain, takes Dilaudid 4mg q6 she gets Dilaudid from physician in [place] she has been kicked out of other pain management practices (6) Gout: Total Time Total Time Spent Total Time Spent (In Minutes): 20 Total Time Includes: Examination of the Patient, Discharge Planning and Medication Reconciliation Discharge Plan Discharge Items Patient Disposition: Home - Home Health Services Reason For Visit: WEAKNESS Discharge Diagnosis: Lethargy and weakness due to Dilaudid Condition on Discharge: Good Goals: take Dilaudid as prescribed take all other medications as prescribed stay well hydrated, well nourished, stay active with home health arrange for care takers at home, consider personal fci in near future Lifting: None Bathing: No limitations Exercise/Sports: Gradually increase as tolerated Driving/Machine Use: no driving Weightbearing: Full weightbearing Non-emergency contact: Primary Care Provider and Specialist Call non-emergency contact if: you have any medication questions Follow-up/Referrals: Maty Pulido [Primary Care Provider] - Diet: Carb Consistent or DM2 and Heart Healthy Addtl Attending Provider Instructions: Medications: DILAUDID: extremely important that you only take as prescribed per your pain management physician in [place] while here you have been getting Dilaudid 4mg every 6 hours your pain as been controlled, you have remained alert, you have participated with therapy and walked well on admission you had numerous x-rays and CT scans that showed no fractures or injuries you were a little dehydrated on admission due to excessive sleep and not drinking well but that resolved with IV fluids very important that you have a kiln labourer to help with keeping medications straight, extremely important that you DO NOT TAKE MORE DILAUDID than prescribed may need to consider personal fci in the future Pending Studies at Discharge: No Stand-Alone Forms: My [facility], Smoking Cessation Medications and DC Order Prescriptions: New hydromorphone 2 mg Tablet 4 mg PO Q6H PRN30 Days Qty: 0 RF: 0 Continued furosemide 40 mg Tablet 40 mg PO QAM RF: 0 clonidine HCl 0.1 mg Tablet 0.1 mg PO BID RF: 0 metoprolol succinate 100 mg Tablet Extended Release 24 Hr 100 mg PO HS RF: 0 clopidogrel 75 mg Tablet 75 mg PO QAM RF: 0 amlodipine 5 mg Tablet 5 mg PO QAM RF: 0 aspirin [Aspirin Low Dose] 81 mg Tablet,Delayed Release (Dr/Ec) 81 mg PO QAM RF: 0 pantoprazole 40 mg Tablet,Delayed Release (Dr/Ec) 40 mg PO QAM RF: 0 ferrous sulfate 325 mg (65 mg iron) Tablet 325 mg PO DAILY RF: 0 lisinopril 40 mg Tablet 40 mg PO QAM RF: 0 duloxetine 60 mg Capsule,Delayed Release(Dr/Ec) 60 mg PO QAM RF: 0 Janumet 50-1,000 mg Tablet 1 tab PO QPM RF: 0 potassium gluconate 595 mg (99 mg) Tablet 297.5 mg PO QAM RF: 0 gabapentin 600 mg tablet 600 mg PO TID RF: 0 Levemir FlexTouch U-100 Insuln 100 unit/mL (3 mL) insulin pen 15 unit SUBCUT DAILY RF: 0 atorvastatin 40 mg Tablet 40 mg PO HS RF: 0 melatonin 5 mg Tablet 10 mg PO HS RF: 0 magnesium oxide 500 mg capsule 500 mg PO QAM RF: 0 diclofenac sodium 1 % gel 4 g topical QID PRN (Reason: pain) Qty: 100 RF: 0 Discontinued oxycodone-acetaminophen [Percocet] 10-325 mg Tablet 1 tab PO Q4 PRN (Reason: mod/severe pain) RF: 0 Discharge Orders: Discharge Order (Routine); Ordered 10/16/19 Ordered By: Param Santo Admission Data Admit Date/Time: 10/12/19 17:21 Attending Provider: Param Santo Admit Provider: Param Santo Primary Care Provider: Maty Pulido Other Providers: Peter Emmanuel Other Interventions: Discharge Summary Assessment (RN) Last Done: 10/16/19 13:31 Coding Level of Care Code 24312 OBS Care - Discharge Diagnoses Weakness R53.1 Confusion R41.0 Dehydration E86.0 Diabetes E11.9 Arthritis M19.90 Gout M10.9
== END 2019-10-16 15:37 | disposition home health service (06) ==
LOC: ED 12:54 → 2N 12:54

== ENCOUNTER 2020-09-07 08:24 | Inpatient (IN) ==
[2020-09-07] MEDS ORDERED: HYDROmorphone INJ 1 MG/ML SYRINGE IV STA (08:45)
--- NOTE | 2020-09-07 09:03 | Emergency Department Note ---
History of Present Illness General Chief complaint: Back Injury/Pain Stated complaint: R SIDE PAIN IN BACK & HIP Time Seen by Provider: 09/07/20 08:25 Source: patient, EMS and old records reviewed Mode of arrival: ambulatory Limitations: no limitations History of Present Illness Maximum Pain Intensity: 10 This patient is a 75-year-old female who has multiple medical problems and chronic pain, comes in after an back pain for several days it is on the right side. It is in the lower back. Hurts worse with movement. No fall or trauma. No numbness or weakness. 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 No focal numbness or weakness elsewhere she has chronic headaches. She is chronically on Dilaudid and tells me her doctor has talked about increasing it. No shortness of breath no chest pain as her pain is worse with movement nothing makes it better. Home Medications Medication Instructions Recorded Confirmed Type amlodipine 5 mg tablet 0 mg PO QAM 10/21/17 09/07/20 History aspirin 81 mg tablet,delayed 81 mg PO QAM 10/21/17 09/07/20 History release (Aspirin Low Dose) clonidine HCl 0.1 mg tablet 0 mg PO BID 10/21/17 09/07/20 History clopidogrel 75 mg tablet 0 mg PO QAM 10/21/17 09/07/20 History duloxetine 60 mg capsule,delayed 60 mg PO QAM 10/21/17 09/07/20 History release ferrous sulfate 325 mg (65 mg 0 mg PO QAM 10/21/17 09/07/20 History iron) tablet furosemide 40 mg tablet 0 mg PO QAM 10/21/17 09/07/20 History lisinopril 40 mg tablet 0 mg PO QAM 10/21/17 09/07/20 History metoprolol succinate 100 mg 0 mg PO HS 10/21/17 09/07/20 History tablet,extended release 24 hr pantoprazole 40 mg tablet,delayed 0 mg PO QAM 10/21/17 09/07/20 History release potassium gluconate 595 mg (99 mg) 0 mg PO QAM 10/21/17 09/07/20 History tablet sitagliptin 50 mg-metformin 1,000 0 tab PO QPM 10/21/17 09/07/20 History mg tablet (Janumet) melatonin 5 mg tablet 0 mg PO HS 12/13/17 09/07/20 History gabapentin 600 mg tablet 0 mg PO TID 06/17/18 09/07/20 History magnesium oxide 500 mg capsule 0 mg PO QAM 12/17/18 09/07/20 History insulin detemir U-100 100 unit/mL 0 unit SUBCUT QAM 01/02/19 09/07/20 History (3 mL) subcutaneous pen (Levemir FlexTouch U-100 Insulin) atorvastatin 40 mg tablet 0 mg PO HS 10/12/19 09/07/20 History hydromorphone 4 mg tablet 4 mg PO 5XD PRN 12/26/19 09/07/20 History aspirin 325 mg tablet 650 mg PO TID 09/07/20 09/07/20 History diclofenac sodium 1 % topical gel 0 g TOPICAL QID PRN 09/07/20 09/07/20 History Allergies Allergy/AdvReac Type Severity Reaction Status Date / Time Cephalosporins Allergy Intermediate RINGING OF Verified 09/07/20 10:43 EARS,FALLING BALANCE ISSUES prochlorperazine Allergy Intermediate STROKE Verified 09/07/20 10:43 LIKE SYMPTOMS, CAN'T TALK linezolid AdvReac Intermediate diarrhea,vo Verified 09/07/20 10:43 miting tramadol AdvReac Intermediate UNSTEADY Verified 09/07/20 10:43 ON FEET, HYPERACTIVITY morphine AdvReac Unknown NOT Verified 09/07/20 10:43 EFFECTIVE Past Med/Surg History Medical History (Updated 09/07/20 @ 14:10 by Indra Mosley MD) Anemia Asthma CHF (congestive heart failure) Confusion Dehydration Diabetes DVT (deep venous thrombosis) Fall Gout HTN (hypertension) Hypomagnesemia Intracranial hemorrhage (03/04/14) Subdural hematoma Weakness Surgical History H/O shoulder surgery History of hysterectomy Hx of appendectomy S/P IVC filter Family History Other Hypertension Seizures Social History Smoking Status: Never smoker Hx Alcohol Use: No Hx Substance Use: No Preferred Language: [place] Communication Ability: Effective Visual Impairment: No Limitations 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: Normal Funeral Home Director Required: No Beliefs That Will Affect Care: None marital status: / Current Living Situation: Alone Current Living Situation Comment: [place] Feels Safe at Home: Yes Assistive Devices: Walker Review of Systems A total of 10 systems reviewed and were otherwise negative Physical Exam Vital Signs Vital Signs - 24 hr 09/07/20 08:38 09/07/20 09:29 09/07/20 10:38 Temperature 36.7 C Temperature Source Oral Pulse Rate 90 Pulse Rate [Right Finger] 81 Respiratory Rate 20 16 18 Respiratory Depth Normal Blood Pressure 149/127 H Blood Pressure [Right Arm] 179/80 H Blood Pressure Mean 134 Blood Pressure Mean [Right Arm] 113 Blood Pressure Position Lying Blood Pressure Position [Right Arm] Lying Pulse Oximetry 95 95 Oxygen Delivery Method Room Air Room Air Sepsis Recent Fever Within 48 Hours No Sepsis New/Unexplained Change in Mental Status No Sepsis Action Taken by Nursing No Action Required 09/07/20 12:00 09/07/20 13:50 Temperature Temperature Source Pulse Rate Pulse Rate [Right Finger] 87 82 Respiratory Rate 18 18 Respiratory Depth Blood Pressure Blood Pressure [Right Arm] 192/111 H 179/99 H Blood Pressure Mean Blood Pressure Mean [Right Arm] 138 125 Blood Pressure Position Blood Pressure Position [Right Arm] Pulse Oximetry 99 100 Oxygen Delivery Method Sepsis Recent Fever Within 48 Hours Sepsis New/Unexplained Change in Mental Status Sepsis Action Taken by Nursing General: Well developed well nourished older female who is complaining of back pain but otherwise appears in no acute distress, breathing comfortably on room air. Normal speech HEENT: Normal cephalic atraumatic. Pupils are equal round and reactive to light. 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 Oropharynx is pink with moist mucous membranes. No swelling of the mouth lips or tongue. Neck: Supple with a midline trachea. No meningeal signs or stiffness, no JVD or bruits. No Stridor. Chest: Clear to auscultation bilaterally. No wheezes or rhonchi. No increased work of breathing. Heart: Regular rate and rhythm without murmurs or gallops. Abdomen: Soft nontender, nondistended without rebound guarding or rigidity. Extremities: No cyanosis clubbing or edema. No calf tenderness or assymetry Spine/Back. Non tender to palpation. No CVA tenderness Skin: Good turgor without rashes. Neurologic exam: Cranial nerves two through 12 are intact with the exception of a peripheral 7th nerve palsy as described above on the right. Motor and sensation are intact and symmetrical throughout. Course Administered Medications Discontinued Medications Hydromorphone HCl (Hydromorphone Inj 1 Mg/Ml Syringe) 1 mg IV NOW STA Stop: 09/07/20 08:46 Last Admin: 09/07/20 09:22 Dose: 1 mg Documented by: [id number] Medical Decision Making Differential Diagnosis Galeas's palsy, central neurologic process, kidney stone, infection, musculoskeletal, cardiac disease, pulmonary disease, electrolyte or metabolic abnormality, acute exacerbation of chronic pain Medical Records Attestation: I reviewed the patient's medical records. Home Medications Current Medication List: was personally reviewed by me Laboratory Data Attestation: I reviewed the patient's lab results. Result diagrams: 09/07/20 08:52 09/07/20 08:52 Lab Results 09/07/20 09/07/20 09/07/20 Range/Units 08:52 08:52 12:21 WBC 8.97 (4.8-10.8) K/uL RBC 4.67 (4.2-5.4) M/uL Hgb 14.5 (12.0-16.0) g/dL Hct 43.4 (37-47) % MCV 92.9 (80-100) fL MCH 31.0 (25-34) pg MCHC 33.4 (32-36) g/dL RDW Std Deviation 44.2 (36.4-46.3) fL RDW Coeff of [place] 13.0 (11.5-14.5) % Plt Count 178 (130-400) K/uL MPV 11.1 H (7.4-10.4) fL Immature Gran % (Auto) 0.1 % Neut % (Auto) 72.7 % Lymph % (Auto) 21.0 % [place] % (Auto) 4.7 % Eos % (Auto) 1.4 % Baso % (Auto) 0.1 % Neut # (Auto) 6.52 H (1.4-6.5) K/uL Lymph # (Auto) 1.88 (1.2-3.4) K/uL [place] # (Auto) 0.42 (0.11-0.59) K/uL Eos # (Auto) 0.13 (0-0.5) K/uL Baso # (Auto) 0.01 (0-0.2) K/uL Immature Gran # (Auto) 0.01 (0.00-0.02) K/uL Sodium 139 (136-145) mmol/L Potassium 3.5 (3.5-5.1) mmol/L Chloride 103 (98-107) mmol/L Carbon Dioxide 30 (21-32) mmol/L Anion Gap 5.0 (3-11) BUN 11 (7-18) mg/dl Creatinine 0.73 (0.6-1.2) mg/dl Est Cr Clr Drug Dosing 70.0 ml/min Est GFR ( Amer) 92.7 ml/min Est GFR (Non-Af Amer) 80.0 ml/min BUN/Creatinine Ratio 15.4 (10-20) Glucose 253 H (70-99) mg/dl Calcium 8.9 (8.5-10.1) mg/dl Total Bilirubin 0.9 (0.2-1) mg/dl AST 17 (15-37) U/L ALT 15 (12-78) U/L Alkaline Phosphatase 145 H (45-117) U/L Troponin I 0.263 H* (0-0.045) ng/ml Total Protein 8.3 H (6.4-8.2) gm/dl Albumin 3.7 (3.4-5.0) gm/dl Globulin 4.6 H (2.5-4.0) gm/dl Albumin/Globulin Ratio 0.8 L (0.9-2) Lipase 91 (73-393) U/L COVID-19 Eval Order Covid19 at [facility] SARS-CoV-2 (PCR) (Negative) 09/07/20 Range/Units 12:21 WBC (4.8-10.8) K/uL RBC (4.2-5.4) M/uL Hgb (12.0-16.0) g/dL Hct (37-47) % MCV (80-100) fL MCH (25-34) pg MCHC (32-36) g/dL RDW Std Deviation (36.4-46.3) fL RDW Coeff of [place] (11.5-14.5) % Plt Count (130-400) K/uL MPV (7.4-10.4) fL Immature Gran % (Auto) % Neut % (Auto) % Lymph % (Auto) % [place] % (Auto) % Eos % (Auto) % Baso % (Auto) % Neut # (Auto) (1.4-6.5) K/uL Lymph # (Auto) (1.2-3.4) K/uL [place] # (Auto) (0.11-0.59) K/uL Eos # (Auto) (0-0.5) K/uL Baso # (Auto) (0-0.2) K/uL Immature Gran # (Auto) (0.00-0.02) K/uL Sodium (136-145) mmol/L Potassium (3.5-5.1) mmol/L Chloride (98-107) mmol/L Carbon Dioxide (21-32) mmol/L Anion Gap (3-11) BUN (7-18) mg/dl Creatinine (0.6-1.2) mg/dl Est Cr Clr Drug Dosing ml/min Est GFR ( Amer) ml/min Est GFR (Non-Af Amer) ml/min BUN/Creatinine Ratio (10-20) Glucose (70-99) mg/dl Calcium (8.5-10.1) mg/dl Total Bilirubin (0.2-1) mg/dl AST (15-37) U/L ALT (12-78) U/L Alkaline Phosphatase (45-117) U/L Troponin I (0-0.045) ng/ml Total Protein (6.4-8.2) gm/dl Albumin (3.4-5.0) gm/dl Globulin (2.5-4.0) gm/dl Albumin/Globulin Ratio (0.9-2) Lipase (73-393) U/L COVID-19 Eval Order SARS-CoV-2 (PCR) NEGATIVE (Negative) Imaging Data Attestation: I personally reviewed and interpreted this imaging study as follows: Radiologist's Impression: Abdomen/Pelvis CT 09/07/20 08:[address] WITHOUT CONTRAST CT DOSE: 2066.71 mGy.cm HISTORY: Acute right-sided flank pain rt flank pain TECHNIQUE: Multiaxial CT images of the abdomen and pelvis were performed without contrast. A dose lowering technique was utilized adhering to the principles of ALARA. COMPARISON STUDY: 10/12/2019 FINDINGS: Cardiomegaly with coronary artery and mitral annular calcifications. Clear lung bases. No pneumatosis or pneumoperitoneum. The spleen, moderately atrophic pancreas and adrenal glands are unremarkable. The gallbladder appears surgically absent. Punctate calcification within the enma hepatis. Mild nodularity of the liver suggestive of cirrhosis. No ascites. The kidneys are within normal limits. Bladder wall thickening with partial distention. Uterus appears atrophic. Extensive calcified plaque of the abdominal aorta. Infrarenal IVC filter. No adenopathy. No bowel obstruction or bowel wall thickening. Mild wall thickening of the d istal stomach with partial distention. Colonic diverticulosis. Mild fecal retention. The appendix is reportedly surgically absent. No ascites or mesenteric inflammation. Tiny fat filled periumbilical hernia. Degenerative changes of the spine and left hip. Right hip total joint arthroplasty. No acute fracture identified. IMPRESSION: 1. No urolith or obstructive uropathy. 2. No bowel obstruction or bowel wall thickening. 3. Colonic diverticulosis. 4. Mild wall thickening of the distal stomach, likely secondary to partial distention. A mild gastritis considered less likely. 5. Additional findings as above. ACT 112: Negative or not required by law. The above report was generated using voice recognition software. It may contain grammatical, syntax or spelling errors. Electronically signed by: Joe Shah M.D. 09/07/2020 10:36 AM Chest X-Ray 09/07/20 08:44 XR chest 1V portable CLINICAL HISTORY: pain COMPARISON STUDY: October 12, 2019 FINDINGS: No pneumothorax. No pleural effusion. No large infiltrates or consolidative lesions are seen. Cardiomediastinal silhouette is within normal limits in size. No significant pulmonary vascular congestion.. Aorta is tortuous. Osseous structures: Degenerative changes of the spine and right shoulder. Stable deformity of the left humeral head. IMPRESSION: 1. No acute pulmonary process. ACT 112: Negative or not required by law. The above report was generated using voice recognition software. It may contain grammatical, syntax or spelling errors. Electronically signed by: Tram Jones DO 09/07/2020 9:[address] 09/07/20 08:44 CT head/brain wo con CLINICAL HISTORY: 75 years-old Female with facial weakness. Acute facial weakness with strokelike symptoms TECHNIQUE: Multiple axial CT images of the head were obtained without contrast. A dose lowering technique was utilized adhering to the principles of ALARA. COMPARISON: Head CT 12/26/2019 FINDINGS: Motion degraded exam. No acute intracranial hemorrhage, midline shift, intracranial mass, hydrocephalus, territorial ischemia or abnormal extra-axial collection. Age-related involutional changes. Patchy white matter hypodensities suggestive of chronic microvascular ischemic disease. Coarse calcifications of the falx cerebri. The calvarium is intact. The paranasal sinuses, mastoid air cells, and middle ear cavities are clear. IMPRESSION: No acute intracranial abnormality. ACT 112: Negative or not required by law. The above report was generated using voice recognition software. It may contain grammatical, syntax or spelling errors. Electronically signed by: Joe Shah M.D. 09/07/2020 9:57 AM ECG Data Attestation: I personally reviewed and interpreted this ECG as follows: Indication: + back/shoulder pain and + weakness Rate (beats per minute): 99 Rhythm: + normal sinus ECG Intervals/blocks: + Normal QRS, + Normal QT and + Normal NE ECG Wideman: + Normal ECG ST segments: + Normal ST segments ECG Findings: no PACs Comparison ECG Date: from (02/26/20) Change: no significant change MDM Narrative This patient is a 75-year-old female comes in with right flank pain she also is a Galeas's palsy is both been going on for several days. She she appears uncomfortable. IV access was established blood work was obtained. EKG and chest x-ray were obtained also a CAT scan of the the abdomen as well as her head. She was reassessed frequently. She did feel better after receiving the IV Dilaudid. Her EKG does not show any ischemic changes however her troponin is mildly elevated at 0.23. Chest x-ray was clear. CAT scan of her head and abdomen were unremarkable. She has no significant electrolyte or metabolic abnormalities. When I go back to check on her she tells me she stopped taking her medications. She has a Galeas's palsy which sounds like is been going on for couple days there is no other neurologic deficits. I do think she needs to be admitted given her elevated troponin. I have consulted Dr. Baldwin to see her in the ER for these measures. Continuous cardiac monitoring: Given the patient's chief complaint and orders placed in EMR for continuous cardiac monitoring upon my interpretation, the patient was to be in normal sinus rhythm with a pulse of 80. Impression & Plan Back pain, Elevated troponin, Galeas's palsy, Diabetes Discharge Plan Visit Data Chief Complaint: Back Injury/Pain Stated Complaint: R SIDE PAIN IN BACK & HIP ED Provider: Indra Mosley Discharge Problem: Back pain, Elevated troponin, Galeas's palsy, Diabetes Forms Stand Alone Forms: My [facility] Prescriptions Prescriptions: No Action furosemide 40 mg Tablet 0 mg PO QAM RF: 0 clonidine HCl 0.1 mg Tablet 0 mg PO BID RF: 0 metoprolol succinate 100 mg Tablet Extended Release 24 Hr 0 mg PO HS RF: 0 clopidogrel 75 mg Tablet 0 mg PO QAM RF: 0 amlodipine 5 mg Tablet 0 mg PO QAM RF: 0 aspirin [Aspirin Low Dose] 81 mg Tablet,Delayed Release (Dr/Ec) 81 mg PO QAM RF: 0 pantoprazole 40 mg Tablet,Delayed Release (Dr/Ec) 0 mg PO QAM RF: 0 ferrous sulfate 325 mg (65 mg iron) Tablet 0 mg PO QAM RF: 0 lisinopril 40 mg Tablet 0 mg PO QAM RF: 0 duloxetine 60 mg Capsule,Delayed Release(Dr/Ec) 60 mg PO QAM RF: 0 Janumet 50-1,000 mg Tablet 0 tab PO QPM RF: 0 potassium gluconate 595 mg (99 mg) Tablet 0 mg PO QAM RF: 0 gabapentin 600 mg tablet 0 mg PO TID RF: 0 Levemir FlexTouch U-100 Insuln 100 unit/mL (3 mL) insulin pen 0 unit SUBCUT QAM RF: 0 atorvastatin 40 mg Tablet 0 mg PO HS RF: 0 hydromorphone 4 mg tablet 4 mg PO 5XD PRN (Reason: Pain) RF: 0 melatonin 5 mg Tablet 0 mg PO HS RF: 0 magnesium oxide 500 mg capsule 0 mg PO QAM RF: 0 aspirin 325 mg Tablet 650 mg PO TID RF: 0 diclofenac sodium 1 % gel 0 g topical QID PRN (Reason: pain) RF: 0 Referrals Referrals: Radha Gonzalez CRNP [Primary Care Provider] - Discharge Problem: Back pain Qualifiers: Back pain location: low back pain Chronicity: acute Back pain laterality: right Sciatica presence: without sciatica Qualified Code(s): M54.5 - Low back pain Diabetes Qualifiers: Diabetes mellitus type: type 2 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
[2020-09-07 09:10] LABS: Basophils # (auto) 0.01 K/uL (0-0.2); Basophils % (auto) 0.1 %; Eosinophils # (auto) 0.13 K/uL (0-0.5); Eosinophils % (auto) 1.4 %; Hematocrit (blood only) 43.4 % (37-47); Hemoglobin 14.5 g/dL (12.0-16.0); Immature Granulocytes # (auto) 0.01 K/uL (0.00-0.02); Immature Granulocytes % (auto) 0.1 %; Lymphocytes # (auto) 1.88 K/uL (1.2-3.4); Mean Corpuscular Hgb Conc 33.4 g/dL (32-36); Mean Corpuscular Volume 92.9 fL (80-100); Mean Platelet Volume 11.1 fL (7.4-10.4); Monocytes # (auto) 0.42 K/uL (0.11-0.59); Monocytes % (auto) 4.7 %; Neutrophils # (auto) 6.52 K/uL (1.4-6.5); Neutrophils % (auto) 72.7 %; Platelet Count 178 K/uL (130-400); RDW Standard Deviation 44.2 fL (36.4-46.3); Red Blood Count 4.67 M/uL (4.2-5.4); White Blood Count 8.97 K/uL (4.8-10.8)
--- NOTE | 2020-09-07 09:10 | XRay Report ---
XR chest 1V portable CLINICAL HISTORY: pain COMPARISON STUDY: October 12, 2019 FINDINGS: No pneumothorax. No pleural effusion. No large infiltrates or consolidative lesions are seen. Cardiomediastinal silhouette is within normal limits in size. No significant pulmonary vascular congestion.. Aorta is tortuous. Osseous structures: Degenerative changes of the spine and right shoulder. Stable deformity of the le ft humeral head. IMPRESSION: 1. No acute pulmonary process. ACT 112: Negative or not required by law. The above report was generated using voice recognition software. It may contain grammatical, syntax o r spelling errors. Electronically signed by: Tram Jones DO 09/07/2020 9:09 AM
[2020-09-07 09:45] LABS: Albumin Level 3.7 gm/dl (3.4-5.0); BUN Creatinine Ratio 15.4 (10-20); Calcium 8.9 mg/dl (8.5-10.1); Est GFR (African American) 92.7 ml/min; Potassium 3.5 mmol/L (3.5-5.1)
--- NOTE | 2020-09-07 09:59 | CT Scan Report ---
CT head/brain wo con CLINICAL HISTORY: 75 years-old Female with facial weakness. Acute facial weakness with strokelike sy mptoms TECHNIQUE: Multiple axial CT images of the head were obtained without contrast. A dose lowering tech nique was utilized adhering to the principles of ALARA. COMPARISON: Head CT 12/26/2019 FINDINGS: Motion degraded exam. No acute intracranial hemorrhage, midline shift, intracranial mass, hydrocephal us, territorial ischemia or abnormal extra-axial collection. Age-related involutional changes. Patchy white matter hypodensities suggestive of chronic microvascular ischemic disease. Coarse calcificatio ns of the falx cerebri. The calvarium is intact. The paranasal sinuses, mastoid air cells, and middle ear cavities are clear . IMPRESSION: No acute intracranial abnormality. ACT 112: Negative or not required by law. The above report was generated using voice recognition software. It may contain grammatical, syntax o r spelling errors. Electronically signed by: Joe Shah M.D. 09/07/2020 9:57 AM
[2020-09-07 10:03] LABS: Albumin Globulin Ratio 0.8 (0.9-2); Bilirubin,Total 0.9 mg/dl (0.2-1); Globulin 4.6 gm/dl (2.5-4.0); Total Protein 8.3 gm/dl (6.4-8.2); Troponin I 0.263 ng/ml (0-0.045)
--- NOTE | 2020-09-07 10:37 | CT Scan Report ---
ABDOMEN AND PELVIS CT WITHOUT CONTRAST CT DOSE: 2066.71 mGy.cm HISTORY: Acute right-sided flank pain rt flank pain TECHNIQUE: Multiaxial CT images of the abdomen and pelvis were performed without contrast. A dose lo wering technique was utilized adhering to the principles of ALARA. COMPARISON STUDY: 10/12/2019 FINDINGS: Cardiomegaly with coronary artery and mitral annular calcifications. Clear lung bases. No pneumatosis or pneumoperitoneum. The spleen, moderately atrophic pancreas and adrenal glands are unremarkable. T he gallbladder appears surgically absent. Punctate calcification within the enma hepatis. Mild nodul arity of the liver suggestive of cirrhosis. No ascites. The kidneys are within normal limits. Bladder wall thickening with partial distention. Uterus appears atrophic. Extensive calcified plaque of the abdominal aorta. Infrarenal IVC filter. No adenopathy. No bowel obstruction or bowel wall thickening. Mild wall thickening of the distal stomach with partia l distention. Colonic diverticulosis. Mild fecal retention. The appendix is reportedly surgically abs ent. No ascites or mesenteric inflammation. Tiny fat filled periumbilical hernia. Degenerative change s of the spine and left hip. Right hip total joint arthroplasty. No acute fracture identified. IMPRESSION: 1. No urolith or obstructive uropathy. 2. No bowel obstruction or bowel wall thickening. 3. Colonic diverticulosis. 4. Mild wall thickening of the distal stomach, likely secondary to partial distention. A mild gastrit is considered less likely. 5. Additional findings as above. ACT 112: Negative or not required by law. The above report was generated using voice recognition software. It may contain grammatical, syntax o r spelling errors. Electronically signed by: Joe Shah M.D. 09/07/2020 10:36 AM
--- NOTE | 2020-09-07 12:26 | History & Physical Report ---
Date of Service September 07, 2020 Assessment & Plan (1) Back pain: Plan: Patient with severe back pain limiting function. No incontinence, trauma -Check UA ?stone passage given location and severity of pain -Tylenol 1000mg po TID -Heat PRN -Lidoderm TD -Steroid taper for Galeas's palsy as above may improve back pain as well -Continue home Dilaudid - 4mg po q 6 hours PRN. Ideally would decrease opiate dosage in elderly patient that lives alone if tolerated (2) Elevated troponin: Plan: Patient denies chest pain. 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 She has been noncompliant with her medications. -Resume Lisinopril for now - h/o DM -Resume Amlodipine -If BP tolerates would resume Metoprolol in AM - patient should be on this for history of CHF (5) Diabetes: Plan: Patient has been noncompliant with her medications. Elevated blood sugar presently at 253 -Lantus 7u BID -ISS -Check A1C -Goal blood sugar 100 - 150 (6) CHF (congestive heart failure): Plan: Patient appears well compensated, no evidence of exacerbation . Last echo from August 2015 with normal LV size and function with mild LVH, EF of 55-60%. EKG with evidence of LVH -Continue Lisinopril -If BP tolerates would resume Metoprolol as tolerated -No need for Lasix at this time (7) Anemia: Plan: Stable. No active bleeding. Patient had been on iron outpatient but has not been taking it. -Continue to monitor (8) Asthma: Plan: Chronic. Stable. No SOB, cough or wheeze -Monitor Plan: F/E/N - Heplock. Check electrolytes and replete as needed. CC diet as tolerated with aspiration precautions Ppx - Lovenox 30 Code - Full per discussion with patient Dispo - Admit to medical with telemetry History of Present Illness Chief Complaint: back pain Primary Care Provider: KEILY Medeiros Genie Rivas is a pleasant 75yo AA female with history of CHF, DM, HTN presenting with 3-4 days of right sided back pain. Patient reports pain began suddenly - located in right flank and lumbar region. Pain is severe, "spasms". She denies trauma, falls, lifting. Pain yesterday was so severe that she was unable to get out of bed. She denies urinary or fecal complaints - she has been incontinent of urine but due to her immobility. Also with Drybranch palsy involving her right face that started 3-4 days ago. This is her 2nd episode of Drybranch Palsy this year. She is complaining of right eye tearing Stopped all home medications aside from pain medication " a while ago" No additional complaints at this time. Specifically denies fever/chills/chest pain/SOB/palpitations/abdominal/nausea/vomiting/diarrhea/constipation/dysuria. No numbness/tingling or focal weakness aside from right face/Drybranch Palsy ER Course: Dilaudid Allergies Allergy/AdvReac Type Severity Reaction Status Date / Time Cephalosporins Allergy Intermediate RINGING OF Verified 09/07/20 10:43 EARS,FALLING BALANCE ISSUES prochlorperazine Allergy Intermediate STROKE Verified 09/07/20 10:43 LIKE SYMPTOMS, CAN'T TALK linezolid AdvReac Intermediate diarrhea,vo Verified 09/07/20 10:43 miting tramadol AdvReac Intermediate UNSTEADY Verified 09/07/20 10:43 ON FEET, HYPERACTIVITY morphine AdvReac Unknown NOT Verified 09/07/20 10:43 EFFECTIVE Home Medications Medication Instructions Recorded Confirmed Type amlodipine 5 mg tablet 5 mg PO QAM 10/21/17 02/26/20 History aspirin 81 mg tablet,delayed 81 mg PO QAM 10/21/17 09/07/20 History release (Aspirin Low Dose) clonidine HCl 0.1 mg tablet 0.1 mg PO BID 10/21/17 02/26/20 History clopidogrel 75 mg tablet 75 mg PO QAM 10/21/17 02/26/20 History duloxetine 60 mg capsule,delayed 60 mg PO QAM 10/21/17 02/26/20 History release ferrous sulfate 325 mg (65 mg 325 mg PO QAM 10/21/17 02/26/20 History iron) tablet furosemide 40 mg tablet 40 mg PO QAM 10/21/17 02/26/20 History lisinopril 40 mg tablet 40 mg PO QAM 10/21/17 02/26/20 History metoprolol succinate 100 mg 100 mg PO HS 10/21/17 02/26/20 History tablet,extended release 24 hr pantoprazole 40 mg tablet,delayed 40 mg PO QAM 10/21/17 02/26/20 History release potassium gluconate 595 mg (99 mg) 297.5 mg PO QAM 10/21/17 02/26/20 History tablet sitagliptin 50 mg-metformin 1,000 1 tab PO QPM 10/21/17 09/07/20 History mg tablet (Janumet) melatonin 5 mg tablet 10 mg PO HS 12/13/17 02/26/20 History gabapentin 600 mg tablet 600 mg PO TID 06/17/18 02/26/20 History magnesium oxide 500 mg capsule 500 mg PO QAM 12/17/18 02/26/20 History insulin detemir U-100 100 unit/mL 15 unit SUBCUT QAM 01/02/19 02/26/20 History (3 mL) subcutaneous pen (Levemir FlexTouch U-100 Insulin) atorvastatin 40 mg tablet 40 mg PO HS 10/12/19 02/26/20 History hydromorphone 4 mg tablet 4 mg PO Q6H PRN 12/26/19 09/07/20 History aspirin 325 mg tablet 650 mg PO TID 09/07/20 09/07/20 History diclofenac sodium 1 % topical gel 0 g TOPICAL QID PRN 09/07/20 09/07/20 History Past Med/Surg History Medical History (Updated 09/07/20 @ 12:39 by Lisa Baldwin DO) Anemia Asthma CHF (congestive heart failure) Confusion Dehydration Diabetes DVT (deep venous thrombosis) Fall Gout HTN (hypertension) Hypomagnesemia Intracranial hemorrhage (03/04/14) Subdural hematoma Weakness Surgical History H/O shoulder surgery History of hysterectomy Hx of appendectomy S/P IVC filter Family History Other Hypertension Seizures Social History Smoking Status: Never smoker Hx Alcohol Use: No Hx Substance Use: No Preferred Language: Danish Communication Ability: Effective Visual Impairment: No Limitations 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: Normal Darklight Inspector Required: No Beliefs That Will Affect Care: None marital status: / Current Living Situation: Alone Current Living Situation Comment: [place] Feels Safe at Home: Yes Assistive Devices: Walker Review of Systems Review of Systems: All systems reviewed & are unremarkable except as noted in HPI & below Physical Exam Physical Exam: General: patient resting comfortably, NAD, non-toxic in appearance, AA&O x 4 Skin: warm, dry, intact, no rashes or lesions HEENT: NC/AT, PERRL, EOMI, anicteric sclera, conjunctiva without injection, external ear normal to inspection and nontender, nares patent, moist mucus membranes, dentition intact, no oropharyngeal lesions, neck supple, trachea midline, no LAD, no thyromegaly, no JVD, right facial droop involving forehead and eyebrow Heart: +S1/S2, regular, no m/r/g Lungs: equal air entry bilaterally, no rales/rhonchi/wheezes Abd: +BS, soft, NT/ND, no masses/organomegaly/ascites +Back pain with palpation of right lumbar, paraspinal musculature with spasm Ext: warm, 2+ pulses in UE/LE bilaterally, no clubbing/cyanosis or edema Neuro: nonfocal, patient AA&O x 4, speech intact, no facial droop, moving all extremities on command with equal strength 5/5 Results & Data Results & Data ([place]) Vital Signs (Past 12 Hours) Vital Signs Temp Pulse Pulse Resp BP BP Pulse Ox 09/07/20 12:00 87 18 192/111 H 99 09/07/20 10:38 81 18 179/80 H 95 09/07/20 09:29 16 09/07/20 08:38 36.7 C 90 20 149/127 H 95 Laboratory Results Laboratory Results WBC 8.97 K/uL (4.8-10.8) 09/07/20 08:52 RBC 4.67 M/uL (4.2-5.4) 09/07/20 08:52 Hgb 14.5 g/dL (12.0-16.0) 09/07/20 08:52 Hct 43.4 % (37-47) 09/07/20 08:52 MCV 92.9 fL (80-100) 09/07/20 08:52 MCH 31.0 pg (25-34) 09/07/20 08:52 MCHC 33.4 g/dL (32-36) 09/07/20 08:52 RDW Std Deviation 44.2 fL (36.4-46.3) 09/07/20 08:52 RDW Coeff of [place] 13.0 % (11.5-14.5) 09/07/20 08:52 Plt Count 178 K/uL (130-400) 09/07/20 08:52 MPV 11.1 fL (7.4-10.4) H 09/07/20 08:52 Immature Gran % (Auto) 0.1 % 09/07/20 08:52 Neut % (Auto) 72.7 % 09/07/20 08:52 Lymph % (Auto) 21.0 % 09/07/20 08:52 [place] % (Auto) 4.7 % 09/07/20 08:52 Eos % (Auto) 1.4 % 09/07/20 08:52 Baso % (Auto) 0.1 % 09/07/20 08:52 Neut # (Auto) 6.52 K/uL (1.4-6.5) H 09/07/20 08:52 Lymph # (Auto) 1.88 K/uL (1.2-3.4) 09/07/20 08:52 [place] # (Auto) 0.42 K/uL (0.11-0.59) 09/07/20 08:52 Eos # (Auto) 0.13 K/uL (0-0.5) 09/07/20 08:52 Baso # (Auto) 0.01 K/uL (0-0.2) 09/07/20 08:52 Immature Gran # (Auto) 0.01 K/uL (0.00-0.02) 09/07/20 08:52 Sodium 139 mmol/L (136-145) 09/07/20 08:52 Potassium 3.5 mmol/L (3.5-5.1) 09/07/20 08:52 Chloride 103 mmol/L (98-107) 09/07/20 08:52 Carbon Dioxide 30 mmol/L (21-32) 09/07/20 08:52 Anion Gap 5.0 (3-11) 09/07/20 08:52 BUN 11 mg/dl (7-18) 09/07/20 08:52 Creatinine 0.73 mg/dl (0.6-1.2) 09/07/20 08:52 Est Cr Clr Drug Dosing 70.0 ml/min 09/07/20 08:52 Est GFR ( Amer) 92.7 ml/min 09/07/20 08:52 Est GFR (Non-Af Amer) 80.0 ml/min 09/07/20 08:52 BUN/Creatinine Ratio 15.4 (10-20) 09/07/20 08:52 Glucose 253 mg/dl (70-99) H 09/07/20 08:52 Calcium 8.9 mg/dl (8.5-10.1) 09/07/20 08:52 Total Bilirubin 0.9 mg/dl (0.2-1) 09/07/20 08:52 AST 17 U/L (15-37) 09/07/20 08:52 ALT 15 U/L (12-78) 09/07/20 08:52 Alkaline Phosphatase 145 U/L (45-117) H 09/07/20 08:52 Troponin I 0.263 ng/ml (0-0.045) H* 09/07/20 08:52 Total Protein 8.3 gm/dl (6.4-8.2) H 09/07/20 08:52 Albumin 3.7 gm/dl (3.4-5.0) 09/07/20 08:52 Globulin 4.6 gm/dl (2.5-4.0) H 09/07/20 08:52 Albumin/Globulin Ratio 0.8 (0.9-2) L 09/07/20 08:52 Lipase 91 U/L (73-393) 09/07/20 08:52 COVID-19 Eval Order Covid19 at [facility] 09/07/20 12:21 Impressions Abdomen/Pelvis CT 09/07/20 08:[address] WITHOUT CONTRAST CT DOSE: 2066.71 mGy.cm HISTORY: Acute right-sided flank pain rt flank pain TECHNIQUE: Multiaxial CT images of the abdomen and pelvis were performed without contrast. A dose lowering technique was utilized adhering to the principles of ALARA. COMPARISON STUDY: 10/12/2019 FINDINGS: Cardiomegaly with coronary artery and mitral annular calcifications. Clear lung bases. No pneumatosis or pneumoperitoneum. The spleen, moderately atrophic pancreas and adrenal glands are unremarkable. The gallbladder appears surgically absent. Punctate calcification within the enma hepatis. Mild nodularity of the liver suggestive of cirrhosis. No ascites. The kidneys are within normal limits. Bladder wall thickening with partial distention. Uterus appears atrophic. Extensive calcified plaque of the abdominal aorta. Infrarenal IVC filter. No adenopathy. No bowel obstruction or bowel wall thickening. Mild wall thickening of the distal stomach with partial distention. Colonic diverticulosis. Mild fecal retention. The appendix is reportedly surgically absent. No ascites or mesenteric inflammation. Tiny fat filled periumbilical hernia. Degenerative changes of the spine and left hip. Right hip total joint arthroplasty. No acute fracture identified. IMPRESSION: 1. No urolith or obstructive uropathy. 2. No bowel obstruction or bowel wall thickening. 3. Colonic diverticulosis. 4. Mild wall thickening of the distal stomach, likely secondary to partial distention. A mild gastritis considered less likely. 5. Additional findings as above. ACT 112: Negative or not required by law. The above report was generated using voice recognition software. It may contain grammatical, syntax or spelling errors. Electronically signed by: Joe Shah M.D. 09/07/2020 10:36 AM Chest X-Ray 09/07/20 08:44 XR chest 1V portable CLINICAL HISTORY: pain COMPARISON STUDY: October 12, 2019 FINDINGS: No pneumothorax. No pleural effusion. No large infiltrates or consolidative lesions are seen. Cardiomediastinal silhouette is within normal limits in size. No significant pulmonary vascular congestion.. Aorta is tortuous. Osseous structures: Degenerative changes of the spine and right shoulder. Stable deformity of the left humeral head. IMPRESSION: 1. No acute pulmonary process. ACT 112: Negative or not required by law. The above report was generated using voice recognition software. It may contain grammatical, syntax or spelling errors. Electronically signed by: Tram Jones DO 09/07/2020 9:[address] 09/07/20 08:44 CT head/brain wo con CLINICAL HISTORY: 75 years-old Female with facial weakness. Acute facial weakness with strokelike symptoms TECHNIQUE: Multiple axial CT images of the head were obtained without contrast. A dose lowering technique was utilized adhering to the principles of ALARA. COMPARISON: Head CT 12/26/2019 FINDINGS: Motion degraded exam. No acute intracranial hemorrhage, midline shift, intracranial mass, hydrocephalus, territorial ischemia or abnormal extra-axial collection. Age-related involutional changes. Patchy white matter hypodensities suggestive of chronic microvascular ischemic disease. Coarse calcifications of the falx cerebri. The calvarium is intact. The paranasal sinuses, mastoid air cells, and middle ear cavities are clear. IMPRESSION: No acute intracranial abnormality. ACT 112: Negative or not required by law. The above report was generated using voice recognition software. It may contain grammatical, syntax or spelling errors. Electronically signed by: Joe Shah M.D. 09/07/2020 9:57 AM ECG Additional Comments: EKG with NSR at 99, LVH with repolarization, no change from prior study Code Status & VTE Plan VTE Prophylaxis Plan VTE Prophylaxis will be ordered: Yes PG Care Time/CCT Total # of Minutes Spent Total Time Spent with Patient: Total time spent is greater than 50% in coordination of care (as documented) at patient's floor/unit and/or counseling patient: Coding Level of Care Code 09401 Initial Inpt Care Lvl 2 Diagnoses HTN (hypertension) I10 Hypertension type: essential hypertension Diabetes E11.9 CHF (congestive heart failure) I50.9 Anemia D64.9 Asthma J45.909 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 Back pain M54.9 Elevated troponin R77.8 (1) HTN (hypertension) Hypertension type: essential hypertension Qualified Code(s): I10 - Essential (primary) hypertension
[2020-09-07] MEDS ORDERED: CARBOHYDRATES FOR HYPOGLYCEMIA PO PRN (14:56)
[2020-09-07] MEDS ORDERED: GLUCOSE 40% GEL 15 GM TUBE PO PRN (14:56)
[2020-09-07] MEDS ORDERED: DEXTROSE 50% 50 ML SYRINGE IV PRN (14:56)
[2020-09-07] MEDS ORDERED: GLUCAGON FOR INJ 1 MG VIAL SQ PRN (14:56)
[2020-09-07] MEDS ORDERED: ONDANSETRON INJ 2 MG/ML 2 ML VIAL IV PRN (14:56)
[2020-09-07] MEDS ORDERED: GLUCOSE 10 TABS/TUBE PO PRN (14:56)
[2020-09-07] MEDS: HYDROmorphone HCL 2 MG TAB PO PRN ×2 (15:47→21:49)
[2020-09-07 16:04] LABS: Magnesium 1.8 mg/dl (1.8-2.4); Phosphorus 3.4 mg/dl (2.5-4.9)
[2020-09-07] MEDS: predniSONE 20 MG TAB PO SCH (16:35)
[2020-09-07] MEDS: valACYclovir HCL 500 MG TABLET PO SCH ×2 (16:36→21:23)
[2020-09-07] MEDS: ACETAMINOPHEN 500 MG TAB PO SCH ×2 (16:36→21:22)
[2020-09-07] MEDS: LIDOCAINE 5% 1 PATCH TD SCH (16:37)
[2020-09-07] MEDS: INSULIN ASPART 100 UNITS/ML 3 ML PEN SC SCH ×2 (16:41→21:32)
[2020-09-07] MEDS: ENOXAPARIN INJ 30 MG/0.3 ML SYR SQ SCH (16:44)
[2020-09-07] MEDS: amLODIPine BESYLATE 5 MG TAB PO SCH (16:58)
[2020-09-07 17:50] LABS: Lyme Ab IgG w/WB Rflx Negative (Negative); Lyme Ab IgM w/WB Rflx Negative (Negative)
[2020-09-07] MEDS: HYDROmorphone INJ 0.5 MG/0.5 ML SYR IV PRN ×2 (18:38→22:36)
[2020-09-07] MEDS: ARTIFICIAL TEARS OP OINT 3.5 GM TUBE OP PRN (18:47)
[2020-09-07] MEDS ORDERED: INSULIN GLARGINE SOLOSTAR 100 UNITS/ML 3 ML PEN SC SCH (21:00)
[2020-09-07] MEDS ORDERED: MoRPHine SULFATE 2 MG/ML CARP IV PRN (21:12)
[2020-09-07] MEDS ORDERED: NITROGLYCERIN SL 0.4 MG/TAB TAB SL PRN (21:12)
[2020-09-07] MEDS: ATORVASTATIN 40 MG TAB PO SCH (21:23)
[2020-09-07] MEDS: INSULIN GLARGINE SOLOSTAR 100 UNITS/ML 3 ML PEN SC SCH (21:33)
--- NOTE | 2020-09-07 22:02 | Communication Note ---
Date of Service: September 07, 2020 S / Called by nursing to evaluate patient for chest pain. Admission H&P, prior notes reviewed. Patient says about 20 min ago began to experience right lumb ar/flank pain again. Also began experiencing a mild chest discomfort in the substernal area, but also present towards her left breast. She thinks she has had this before. She rates it as mild. She does not usually get CP or SOB with exertion. Does not go to back. No BAÑUELOS. Otherwise feels well. O / BP 154/100, HR 87, RR 20, T 37, SpO2 98% at 2L NC General: Well-appearing 75-year-old female who is alert and fully responsive. Intermittently confused but easy to be reoriented. HEENT: NCAT. Eyes - Sclera are white, anicteric, and without injection. Cardiac: Normal rate and regular rhythm; S1 and S2 present with grade 1/6 BIN at the RUSB, otherwise no rubs or gallops. Pulmonary: Good respiratory effort with symmetric expansion of the chest. No use of accessory muscles. Lungs were clear to auscultation bilaterally with no crackles or wheezes. Abdominal: Abdomen was soft, nondistended, and non-tender to palpation. MSK: No obvious rash over the sternum. There is +TTP over the left sternal area extending towards the left breast. A + P / Chest Pain. Did note that patient had elevated troponins on admission, mildly though - she did not report CP at that time. No ECG changes on admission from prior; stat ECG performed during this event similarly did not show conduction or repolarization abnormalities. Will order troponin. She was given nitro and Dilaudid (her prn) in similar time with resolution of the pain. Given reproducability on exam, suspect this is MSK, however proceed with ruling out ischemia. If troponin returns significantly elevated or CP returns, can consider hep. Low suspicion for GI. Resident Activity Tracking Resident Involvement: Resident Care Provided Care Provided: Adult Hospital Medicine
[2020-09-07] MEDS ORDERED: MELATONIN 3 MG TAB PO ONE (22:09)
[2020-09-07] MEDS: MELATONIN 3 MG TAB PO PRN (22:18)
[2020-09-07 23:15] LABS: Appearance Urine Clear (Clear); Bilirubin Urine Negative (Negative); Blood Urine Negative (Negative); Color Urine Yellow; Glucose Urine UA 3+ (Negative); Ketones Urine Trace (Negative); Leukocyte Esterase Urine Negative (Negative); Nitrite Urine Negative (Negative); Protein Urine Negative (Negative); Urobilinogen Urine Negative (Negative)
[2020-09-08] MEDS: ARTIFICIAL TEARS OP OINT 3.5 GM TUBE OP PRN (00:42)
[2020-09-08] MEDS: HYDROmorphone INJ 0.5 MG/0.5 ML SYR IV PRN ×4 (02:25→21:24)
[2020-09-08] MEDS: lisinopril 40 MG TAB PO SCH (08:59)
[2020-09-08] MEDS: ACETAMINOPHEN 500 MG TAB PO SCH ×4 (08:59→19:04)
[2020-09-08] MEDS: amLODIPine BESYLATE 5 MG TAB PO SCH (09:00)
[2020-09-08] MEDS: ASPIRIN 81 MG ECTAB PO SCH (09:00)
[2020-09-08] MEDS: predniSONE 20 MG TAB PO SCH (09:00)
[2020-09-08] MEDS: valACYclovir HCL 500 MG TABLET PO SCH ×3 (09:00→21:18)
[2020-09-08] MEDS: INSULIN ASPART 100 UNITS/ML 3 ML PEN SC SCH ×4 (09:01→21:16)
[2020-09-08] MEDS: INSULIN GLARGINE SOLOSTAR 100 UNITS/ML 3 ML PEN SC SCH (09:04)
[2020-09-08] MEDS: LIDOCAINE 5% 1 PATCH TD SCH (09:06)
[2020-09-08 09:42] LABS: Basophils # (auto) 0.01 K/uL (0-0.2); Basophils % (auto) 0.1 %; Eosinophils # (auto) 0.01 K/uL (0-0.5); Eosinophils % (auto) 0.1 %; Hematocrit (blood only) 44.2 % (37-47); Hemoglobin 15.2 g/dL (12.0-16.0); Immature Granulocytes # (auto) 0.02 K/uL (0.00-0.02); Immature Granulocytes % (auto) 0.1 %; Lymphocytes # (auto) 1.79 K/uL (1.2-3.4); Lymphocytes % (auto) 13.3 %; Mean Corpuscular Hemoglobin 31.5 pg (25-34); Mean Corpuscular Hgb Conc 34.4 g/dL (32-36); Mean Corpuscular Volume 91.5 fL (80-100); Mean Platelet Volume 11.5 fL (7.4-10.4); Monocytes # (auto) 0.56 K/uL (0.11-0.59); Monocytes % (auto) 4.2 %; Neutrophils # (auto) 11.07 K/uL (1.4-6.5); Neutrophils % (auto) 82.2 %; Platelet Count 247 K/uL (130-400); RDW Coefficient of Variation 12.8 % (11.5-14.5); RDW Standard Deviation 42.8 fL (36.4-46.3); Red Blood Count 4.83 M/uL (4.2-5.4); White Blood Count 13.46 K/uL (4.8-10.8)
--- NOTE | 2020-09-08 09:43 | Electrocardiogram Report ---
Test Reason : Blood Pressure : / mmHG Vent. Rate : 088 BPM Atrial Rate : 088 BPM P-R Int : 192 ms QRS Dur : 096 ms QT Int : 380 ms P-R-T Axes : 052 -36 083 degrees QTc Int : 459 ms Normal sinus rhythm Left ventricular hypertrophy with repolarization abnormality Abnormal ECG When compared with ECG of 07-SEP-2020 09:09, No significant change was found Confirmed by Michael Dela Cruz ([id number]) on 09/08/2020 9:42:47 AM Referred By: REFERRED SELF Confirmed By:Michael Dela Cruz
[2020-09-08] MEDS: diphenhydrAMINE Capsule 25 MG CAP PO PRN (09:44)
--- NOTE | 2020-09-08 10:02 | Hospitalist Progress Note ---
Date of Service September 08, 2020 Assessment & Plan (1) Back pain: Plan: Patient's presenting symptoms included sudden R-sided lower back pain and R flank pain limiting ambulation, no bowel/bladder incontinence or sensory/motor deficits. Differential includes pain from lumbar/thoracic radiculopathy, muscle spasm, spinal injury, ureteral calculi. -Thoracolumbar XR- moderate degenerative changes without acute fracture. -CTAP negative for urolithiasis, UA unremarkable. Noted distal stomach wall thickening - ? sec to gastritis. -Tylenol 1000mg po TID, heat PRN for pain, steroid taper for Galeas's palsy may improve back pain as well -Continue home Dilaudid - 4mg po q 6 hours PRN - transition to PO as able -Follow closely. (2) Elevated troponin: Plan: Patient not experiencing any chest pain or dyspnea, non-concerning EKGs. Low suspicion for acute [place] or CHF exacerbation, possibly some myocardial injury given pt's risk factors and history of cardiovascular disease. -Troponins initially increased from 0.263 on admission to 0.638, though now downtrending to currently 0.123. Will continue trending -Continue telemetry monitoring -Cardiology consulted, echocardiogram performed. Suspicion for demand ischemia from back pain and HTN, recommended restarting home metoprolol. Home metoprolol restarted. (3) Galeas's palsy: Plan: Patient with right sided Galeas's palsy, history of L-sided Galeas's palsy 7 months ago -Concern for acute viral illness trigger prompted initiation of Valcyte 1000 mg TID -Pt also started on prednisone to reduce facial nerve inflammation/edema -Lacrilube PRN -Lyme serology negative (4) HTN (hypertension): Plan: -Continue home lisinopril and amlodipine -Resumed home metoprolol today per cardiology (5) Diabetes: Plan: -Lantus 7u BID -ISS -HbA1C pending -Goal blood sugar 100 - 150 (6) CHF (congestive heart failure): Plan: Patient currently denying dyspnea or swelling, no evidence of fluid overload on exam, last echo from August 2015 with normal LV size and function with mild LVH, EF of 55-60%. -Continue Lisinopril -Resumed home Metoprolol (7) Anemia: Plan: Stable H/H at 15.2/44.2. No active bleeding (8) Asthma: Plan: Chronic. Stable, no respiratory distress since admission. Plan: F/E/N - Regular Ppx - Lovenox 30 mg qd Code - Full Dispo - Med/Surg with Telemetry Admission and Anticipated Discharge Date Admission Date: September 07, 2020 Supervising Physician Co-Signing Physician Notes Resident Physician Supervision Note: I independently interviewed and examined the patient and verified the torres history and physical, reviewed labs and image studies and agree with resident Dr. Gutierrez findings and care plan. Subjective Pt continuing to report R lower back and R flank pain. States it is mostly same as on admission though pain medication has provided some relief. Has not experienced any difficulty voiding, denies weakness or numbness. Denies chest pain or dyspnea. Review of Systems Review of Systems: All systems reviewed & are unremarkable except as noted in HPI & below Musculoskeletal: +R sided lower back pain, +R flank pain Physical Exam Physical Exam: General: patient in mild distress Skin: warm, dry, intact, no rashes or lesions HEENT: +right facial droop involving forehead and eyebrow PERRL, EOMI, anicteric sclera, conjunctiva without injection, moist mucus membranes, neck supple, trachea midline, no JVD Heart: +S1/S2, regular rate, no murmur appreciated Lungs: equal air entry bilaterally, no rales/rhonchi/wheezes Abd: R flank tenderness to palpation, soft, nondistended no masses/organomegaly/ascites Back: pain with palpation of right lumbar, paraspinous muscles Ext: warm, no clubbing/cyanosis or edema Neuro: AOx3, sensation intact b/l, 5/5 strength in b/l UE and LE Results & Data Results & Data ([facility]) Vital Signs (Past 12 Hours) Vital Signs Temp Pulse Pulse Resp BP BP Pulse Ox 09/08/20 06:20 94 H 09/08/20 03:56 36.6 C 94 H 18 159/86 H 94 09/08/20 02:51 79 09/07/20 23:25 37.1 C 90 18 172/98 H 95 Resident Activity Tracking Resident Involvement: Resident Care Provided Care Provided: Adult Hospital Medicine (1) HTN (hypertension) Hypertension type: essential hypertension Qualified Code(s): I10 - Essential (primary) hypertension
[2020-09-08 10:03] LABS: Estimated Average Glucose 258 mg/dl; Hemoglobin A1C 10.6 % (4.5-5.6)
[2020-09-08 10:23] LABS: Calcium 9.5 mg/dl (8.5-10.1); Creatinine Clr Calc Pharmacy 53.8 ml/min; Est GFR (African American) 67.4 ml/min; Est GFR (Non-African American) 58.2 ml/min; Potassium 3.1 mmol/L (3.5-5.1)
[2020-09-08 10:42] LABS: Beta-Hydroxybutyrate 0.87 mg/dl (0.2-2.81)
[2020-09-08] MEDS ORDERED: PHARMACY GLYCEMIC MGMT CONSULT PRN (11:10)
[2020-09-08] MEDS ORDERED: INSULIN HUMAN NPH SC ONE (11:30)
--- NOTE | 2020-09-08 12:19 | XRay Report ---
XR thoracolumbar spine 2V CLINICAL HISTORY: Back pain with some flank radiation COMPARISON STUDY: Thoracic spine radiographs October 04, 2012. Lumbar spine CT February 14, 2018. FINDINGS: Bowel gas pattern is normal. Incidental note is made of an IVC filter. Mild dextroscoliosis of the upper lumbar spine is noted. No acute fracture is noted. There is moderate multilevel disc sp apurva narrowing and osteophytosis within the thoracic spine. Moderate multilevel facet arthrosis within the lumbar spine is present. IMPRESSION: 1. No acute fracture within visualized portions of the thoracolumbar spine. 2. Moderate multilevel degenerative changes. 3. Mild dextroscoliosis of the lumbar spine. ACT 112: Negative or not required by law. Electronically signed by: Jerome Lowry M.D. 09/08/2020 12:18 PM
--- NOTE | 2020-09-08 13:12 | Pharmacy Report ---
Pharmacy Glycemic Short Note 2 - Date of Service September 08, 2020 - Glycemic Short BSG Results (Last 24 hours): 09/07/20 09/07/20 09/07/20 16:28 16:29 20:32 Glucose POC Glucose 318 H* 305 H* 304 H* 09/08/20 09/08/20 09/08/20 07:29 09:08 11:30 Glucose 316 H* POC Glucose 271 H 300 H OUTPATIENT ANTIDIABETIC REGIMEN: * Hx of Levemir and Janumet * Poor compliance noted * HbA1c: 10.6% (09/08/20) ASSESSMENT: * LANDY admitted on 09/07 with severe/acute back pain that was limiting function * Prednisone taper initiated to help with back pain and to treat Galeas's palsy * Received 60 mg PO yesterday and this morning - not covered with additional insulin * Pharmacy consulted for glycemic management this morning following BSG of 271 mg/dL * Will tighten Novolog and initiate 0.4 unit/kg NPH with prednisone PLAN FOR INPATIENT GLYCEMIC CONTROL: * Hold outpatient oral diabetes medications * Basal insulin * Lantus 0-15 units SQ BID (see EHR for details) * NPH 32 units (0.4 unit/kg) SC daily * Bolus insulin * NovoLog per scale ACHS or Q6hrs while NPO * Goal Range: Low 110 mg/dL - High 140 mg/dL * Correction Factor: 20 mg/dL/unit * Nutritional / Prandial insulin per carb ratio of 1 unit per 7 grams CHO consumed * ,04 checks with same parameters PLAN FOR DISCHARGE: * HbA1c of 10.6% is significantly above goal of less than 7-8% * Given history of non-compliance, should prioritize simplicity in regimen * Will follow inpatient insulin needs and make recs accordingly
--- NOTE | 2020-09-08 15:52 | Electrocardiogram Report ---
Test Reason : Blood Pressure : / mmHG Vent. Rate : 089 BPM Atrial Rate : 089 BPM P-R Int : 218 ms QRS Dur : 098 ms QT Int : 406 ms P-R-T Axes : 083 214 113 degrees QTc Int : 493 ms Sinus rhythm with 1st degree A-V block Right superior axis deviation Pulmonary disease pattern Anteroseptal ST elevation, most consistent with repolarization variant Prolonged QT Abnormal ECG When compared with ECG of 07-SEP-2020 20:58, No significant change Confirmed by Michael Dela Cruz ([id number]) on 09/08/2020 3:52:06 PM Referred By: REFERRED SELF Confirmed By:Michael Dela Cruz
[2020-09-08] MEDS ORDERED: LABETALOL HCL IV 5 MG/ML 20ML IV PRN (16:12)
--- NOTE | 2020-09-08 16:37 | XCELERA ---
[id number]
[2020-09-08] MEDS: ENOXAPARIN INJ 30 MG/0.3 ML SYR SQ SCH (17:01)
[2020-09-08] MEDS: METOPROLOL SUCC 50MG EXT REL TAB PO SCH (17:01)
--- NOTE | 2020-09-08 18:20 | Cardiology Consultation ---
Date of Consultation September 08, 2020 Assessment & Plan (1) Demand ischemia: Patient with no baseline chest discomfort and no chest discomfort on admission. While she was having significant back pain and marked hypertension she developed chest discomfort without dynamic ST changes but with mild peak and decay troponin elevation. There were no wall motion abnormalities on her subsequent echocardiogram. These findings are most consistent with demand ischemia from the increased physiologic demands and do suggest the likelihood of some degree of underlying coronary artery disease. Recommend adding back her beta-beto to prevent tachycardia and to reduce degree of hypertension. Continue daily aspirin (no need for full anticoagulation/heparinization since this is not suggestive of a thrombotic event). In the absence of wall motion abnormalities or further symptoms, no immediate need to risk stratify her underlying coronary disease. Once her back pain is under control, could obtain a dobutamine stress echocardiogram or Lexiscan to further risk stratify. This might be best deferred to an outpatient setting, since moving her to the cardiopulmonary lab or nuclear lab to obtain these studies will likely aggravate her very movement-sensitive back/flank type spasm. If she develops recurrent chest symptoms, obtain prompt ECG to exclude substantial ischemia. At this point would focus on optimizing hemodynamics to decrease demand and not necessarily add nitrates to improve supply, but would have sublingual nitroglycerin available for any recurrent chest discomfort. Will follow along and check on patient over the weekend. (2) Back pain: (3) HTN (hypertension): History of Present Illness Reason for Consultation: Elevated troponin. Requesting Physician: Aziza Jeong MD Attending Physician: Aziza Jeong MD History of Present Illness 75-year-old woman with multiple medical problems but no known cardiac history admitted yesterday (09/07/2020) for management of abrupt onset severe right flank and back "spasm" type pain, last evening she developed transient chest discomfort and she is now noted to have mildly elevated troponins. She denies any routine chest discomfort at baseline, she occasionally has nonspecific chest symptoms at rest but notes no chest discomfort with activity. However, her activity is quite limited, she does not walk up stairs or carry objects, she can walk short distances, she is debilitated by chronic back and other pain. 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 She denies dyspnea exertion, orthopnea, PND, or ankle edema. At the time of my evaluation, she was comfortable at rest, but had severe pain with any attempts at sitting up or twisting or moving her torso on her lower trunk. She denies any current chest pain. Allergies Allergy/AdvReac Type Severity Reaction Status Date / Time Cephalosporins Allergy Intermediate RINGING OF Verified 09/07/20 10:43 EARS,FALLING BALANCE ISSUES prochlorperazine Allergy Intermediate STROKE Verified 09/07/20 10:43 LIKE SYMPTOMS, CAN'T TALK linezolid AdvReac Intermediate diarrhea,vo Verified 09/07/20 10:43 miting tramadol AdvReac Intermediate UNSTEADY Verified 09/07/20 10:43 ON FEET, HYPERACTIVITY morphine AdvReac Unknown NOT Verified 09/07/20 10:43 EFFECTIVE Home Medications Medication Instructions Recorded Confirmed Type amlodipine 5 mg tablet 0 mg PO QAM 10/21/17 09/07/20 History aspirin 81 mg tablet,delayed 81 mg PO QAM 10/21/17 09/07/20 History release (Aspirin Low Dose) clonidine HCl 0.1 mg tablet 0 mg PO BID 10/21/17 09/07/20 History clopidogrel 75 mg tablet 0 mg PO QAM 10/21/17 09/07/20 History duloxetine 60 mg capsule,delayed 60 mg PO QAM 10/21/17 09/07/20 History release ferrous sulfate 325 mg (65 mg 0 mg PO QAM 10/21/17 09/07/20 History iron) tablet furosemide 40 mg tablet 0 mg PO QAM 10/21/17 09/07/20 History lisinopril 40 mg tablet 0 mg PO QAM 10/21/17 09/07/20 History metoprolol succinate 100 mg 0 mg PO HS 10/21/17 09/07/20 History tablet,extended release 24 hr pantoprazole 40 mg tablet,delayed 0 mg PO QAM 10/21/17 09/07/20 History release potassium gluconate 595 mg (99 mg) 0 mg PO QAM 10/21/17 09/07/20 History tablet sitagliptin 50 mg-metformin 1,000 0 tab PO QPM 10/21/17 09/07/20 History mg tablet (Janumet) melatonin 5 mg tablet 0 mg PO HS 12/13/17 09/07/20 History gabapentin 600 mg tablet 0 mg PO TID 06/17/18 09/07/20 History magnesium oxide 500 mg capsule 0 mg PO QAM 12/17/18 09/07/20 History insulin detemir U-100 100 unit/mL 0 unit SUBCUT QAM 01/02/19 09/07/20 History (3 mL) subcutaneous pen (Levemir FlexTouch U-100 Insulin) atorvastatin 40 mg tablet 0 mg PO HS 10/12/19 09/07/20 History hydromorphone 4 mg tablet 4 mg PO 5XD PRN 12/26/19 09/07/20 History aspirin 325 mg tablet 650 mg PO TID 09/07/20 09/07/20 History diclofenac sodium 1 % topical gel 0 g TOPICAL QID PRN 09/07/20 09/07/20 History Patient History Medical History Anemia Asthma CHF (congestive heart failure) Chronic back pain (06/14/12) Cirrhosis Noted on CT scan 09/08/2020 Confusion Dehydration Diabetes DVT (deep venous thrombosis) Fall Gout HTN (hypertension) Hypomagnesemia Intracranial hemorrhage (03/04/14) Recurrent falls (10/04/12) Rheumatoid arthritis (08/12/12) Sleep apnea (04/27/12) Subdural hematoma Weakness Surgical History H/O shoulder surgery History of hysterectomy Hx of appendectomy S/P cholecystectomy S/P IVC filter Family History Seizures Hypertension Social History Smoking Status: Never smoker Hx Alcohol Use: No Hx Substance Use: No Preferred Language: Wallisian Communication Ability: Effective Visual Impairment: No Limitations 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: Normal Roll On Worker Required: No Beliefs That Will Affect Care: None marital status: / Current Living Situation: Alone Current Living Situation Comment: [place] Feels Safe at Home: Yes Assistive Devices: None Physical Exam Physical Exam: Elderly black female who appears comfortable when lying still, in obvious pain with any attempted motion. Afebrile. Normotensive. Pulse 86 and regular without ectopy. Skin: no ecchymoses or generalized lesions. HEENT: Right peripheral facial palsy, her right eyelid is not drooping but on forceful eye closure there is asymmetry with the left. Right sided upper lip droop. Neck: no JVD or obvious carotid bruits. Lungs: clear bilaterally. Cardiac: regular rhythm, normal S1, intact aortic closure sound, 2/6 basal systolic ejection murmur, 2/6 apical holosystolic murmur, no diastolic murmur or gallop. Abdomen: benign. Extremities: no edema, pulses intact. Neurologic: Engaging affect, mildly digressive conversation, right-sided Galeas's palsy, otherwise grossly nonfocal. Results & Data ([facility]) Vital Signs (Past 12 Hours) Vital Signs Temp Pulse Pulse Resp BP BP Pulse Ox 09/08/20 15:44 97.9 F 87 20 116/74 92 09/08/20 14:20 95 H 09/08/20 11:29 97.3 F L 93 H 18 138/80 100 09/08/20 06:20 94 H Laboratory Results WBC initially normal increased to 13.46 today. Normal hemoglobin and platelet count. Sodium 133, potassium 3.1, BUN 21, creatinine 0.95. Glucose in the 300s. Hemoglobin A1c 10.6. Troponin initially 0.2, peaked at 0.6 before dropping to 0.1. Diagnostic Findings Chest x-ray was benign. ECG on admission showed sinus rhythm, left ventricular hypertrophy with repolarization abnormality, no ST deviation. Minor ST elevation in leads V1 and V2 were felt to be most consistent with repolarization variant. Repeat ECG today showed no significant change. Echocardiogram today showed EF 6065% with moderate LVH, grade 1 diastolic dysfunction, and no wall motion abnormalities. There is mild AI//MR with mild pulmonary hypertension. PG Care Time/CCT Total # of Minutes Spent Total Time Spent with Patient: Total time spent is greater than 50% in coordination of care (as documented) at patient's floor/unit and/or counseling patient: Coding Level of Care Code 73784 Initial Inpt Care Lvl 3 Diagnoses Demand ischemia I24.8 Back pain M54.9 HTN (hypertension) I10 Hypertension type: essential hypertension (1) HTN (hypertension) Hypertension type: essential hypertension Qualified Code(s): I10 - Essential (primary) hypertension
[2020-09-08] MEDS ORDERED: INSULIN ASPART 100 UNITS/ML 3 ML PEN SC ONE (18:45)
[2020-09-08] MEDS ORDERED: INSULIN GLARGINE SOLOSTAR 100 UNITS/ML 3 ML PEN SC SCH (21:00)
[2020-09-08] MEDS: ATORVASTATIN 40 MG TAB PO SCH (21:18)
[2020-09-09] MEDS: INSULIN ASPART 100 UNITS/ML 3 ML PEN SC SCH ×6 (00:05→21:16)
[2020-09-09 08:09] LABS: Basophils # (auto) 0.01 K/uL (0-0.2); Basophils % (auto) 0.1 %; Eosinophils # (auto) 0.06 K/uL (0-0.5); Eosinophils % (auto) 0.5 %; Hematocrit (blood only) 38.4 % (37-47); Hemoglobin 13.1 g/dL (12.0-16.0); Immature Granulocytes # (auto) 0.02 K/uL (0.00-0.02); Immature Granulocytes % (auto) 0.2 %; Lymphocytes # (auto) 2.86 K/uL (1.2-3.4); Lymphocytes % (auto) 24.9 %; Mean Corpuscular Hemoglobin 30.6 pg (25-34); Mean Corpuscular Hgb Conc 34.1 g/dL (32-36); Mean Corpuscular Volume 89.7 fL (80-100); Mean Platelet Volume 10.7 fL (7.4-10.4); Monocytes % (auto) 4.3 %; Neutrophils # (auto) 8.05 K/uL (1.4-6.5); Platelet Count 221 K/uL (130-400); RDW Coefficient of Variation 12.7 % (11.5-14.5); RDW Standard Deviation 40.9 fL (36.4-46.3); Red Blood Count 4.28 M/uL (4.2-5.4)
[2020-09-09] MEDS: amLODIPine BESYLATE 5 MG TAB PO SCH (08:24)
[2020-09-09] MEDS: LIDOCAINE 5% 1 PATCH TD SCH (08:24)
[2020-09-09] MEDS: predniSONE 20 MG TAB PO SCH (08:24)
[2020-09-09] MEDS: ASPIRIN 81 MG ECTAB PO SCH (08:24)
[2020-09-09] MEDS: valACYclovir HCL 500 MG TABLET PO SCH ×3 (08:24→20:15)
[2020-09-09] MEDS: METOPROLOL SUCC 50MG EXT REL TAB PO SCH (08:24)
[2020-09-09] MEDS: lisinopril 40 MG TAB PO SCH (08:24)
[2020-09-09] MEDS: ACETAMINOPHEN 500 MG TAB PO SCH ×3 (08:25→21:18)
[2020-09-09] MEDS: HYDROmorphone INJ 0.5 MG/0.5 ML SYR IV PRN ×3 (08:35→20:14)
--- NOTE | 2020-09-09 08:38 | Pharmacy Report ---
Pharmacy Glycemic Short Note 2 - Date of Service September 09, 2020 - Glycemic Short BSG Results (Last 24 hours): 09/08/20 09/08/20 09/08/20 09:08 11:30 16:15 Glucose 316 H* POC Glucose 300 H 395 H* 09/08/20 09/08/20 09/08/20 16:16 18:57 18:58 Glucose POC Glucose 366 H* 367 H* 371 H* 09/08/20 09/09/20 09/09/20 21:00 00:02 04:22 Glucose POC Glucose 267 H 124 H 157 H 09/09/20 07:32 Glucose POC Glucose 98 OUTPATIENT ANTIDIABETIC REGIMEN: * Hx of Levemir and Janumet * Poor compliance noted * HbA1c: 10.6% (09/08/20) ASSESSMENT: 09/09/20 * Patient's BSGs yesterday were [phone] and overnight BSGs were 124-157 mg/dL. Fasting BSG was 98 mg/dL * Patient received 110 units of insulin yesterday (52 units of basal -- 20 units of Lantus and 32 units of NPH; 58 units of bolus). * Fasting significantly reduced today. Will reduce to 10 units daily of Lantus and titrate. * BSGs climbed significantly yesterday. Most likely due to late NPH administration plus fasting yesterday significantly elevated (271 vs 98) * Continue current NPH. Tighten CR slightly. Background * LANDY admitted on 09/07 with severe/acute back pain that was limiting function * Prednisone taper initiated to help with back pain and to treat Galeas's palsy * Received 60 mg PO yesterday and this morning - not covered with additional insulin * Pharmacy consulted for glycemic management this morning following BSG of 271 mg/dL * Will tighten Novolog and initiate 0.4 unit/kg NPH with prednisone PLAN FOR INPATIENT GLYCEMIC CONTROL: * Hold outpatient oral diabetes medications * Basal insulin * Lantus 10 units daily * NPH 32 units (0.4 unit/kg) SC daily * Bolus insulin * NovoLog per scale ACHS or Q6hrs while NPO * Goal Range: Low 110 mg/dL - High 140 mg/dL * Correction Factor: 20 mg/dL/unit * Nutritional / Prandial insulin per carb ratio of 1 unit per 6 grams CHO consumed * ,04 checks with same parameters PLAN FOR DISCHARGE: * HbA1c of 10.6% is significantly above goal of less than 7-8% * Given history of non-compliance, should prioritize simplicity in regimen * Will follow inpatient insulin needs and make recs accordingly
--- NOTE | 2020-09-09 08:51 | Cardiology Progress Note ---
Date of Service September 09, 2020 Assessment & Plan (1) Demand ischemia: Plan: No further chest pain. Hemodynamics favorable on current vasoactive regimen. Dobutamine stress echo or Lexiscan to further risk stratify, this can be done as an outpatient. (2) Back pain: (3) HTN (hypertension): Plan: Normotensive over the past 24 hours. Continue current vasoactive regimen. Admission and Anticipated Discharge Date Admission Date: September 07, 2020 Subjective Patient still notes back pain with movement, she walked to the bathroom this morning and aggravated her right flank pain. She denies any further chest discomfort. No dyspnea, palpitations, or lightheadedness. Telemetry monitoring showed sinus rhythm in the 60-70 bpm range while awake, 50- 60 bpm range while sleeping. No dysrhythmias. Physical Exam Physical Exam: No distress. BP normotensive. Pulse 62 and regular without ectopy. Skin: no ecchymoses or generalized lesions. HEENT: Right peripheral facial palsy. Neck: no JVD or obvious carotid bruits. Lungs: clear bilaterally. Cardiac: regular rhythm, normal S1, intact aortic closure sound, 2/6 basal systolic ejection murmur, 2/6 apical holosystolic murmur, no diastolic murmur or gallop. Abdomen: benign. Extremities: no edema, pulses intact. Neurologic: Normal affect and conversation, right-sided Galeas's palsy, otherwise grossly nonfocal. Results & Data ([facility]) Vital Signs (Past 12 Hours) Vital Signs Temp Pulse Pulse Resp BP Pulse Ox 09/09/20 07:45 62 09/09/20 07:20 97.9 F 68 20 127/66 98 09/09/20 04:04 98.6 F 67 18 127/80 94 09/08/20 23:48 72 09/08/20 23:00 98.6 F 78 18 135/69 99 Laboratory Results WBC 11.5 (declining), normal hemoglobin and platelet count. Diagnostic Findings Spine x-ray yesterday showed degenerative changes without acute fracture. PG Care Time/CCT Total # of Minutes Spent Total Time Spent with Patient: Total time spent is greater than 50% in coordination of care (as documented) at patient's floor/unit and/or counseling patient: Coding Level of Care Code 82068 Subseq Hosp Care Lvl 3 Diagnoses Demand ischemia I24.8 Back pain M54.9 HTN (hypertension) I10 Hypertension type: essential hypertension (1) HTN (hypertension) Hypertension type: essential hypertension Qualified Code(s): I10 - Essential (primary) hypertension
[2020-09-09 08:54] LABS: BUN Creatinine Ratio 37.4 (10-20); Calcium 9.3 mg/dl (8.5-10.1); Creatinine Clr Calc Pharmacy 83.4 ml/min; Est GFR (African American) 102.1 ml/min; Est GFR (Non-African American) 88.1 ml/min; Potassium 3.5 mmol/L (3.5-5.1)
[2020-09-09] MEDS ORDERED: INSULIN GLARGINE SOLOSTAR 100 UNITS/ML 3 ML PEN SC SCH ×2 (09:00)
[2020-09-09] MEDS ORDERED: INSULIN HUMAN NPH SC SCH (09:00)
--- NOTE | 2020-09-09 10:11 | Hospitalist Progress Note ---
Date of Service September 09, 2020 Assessment & Plan (1) Back pain: Plan: Patient's presenting symptoms included sudden R-sided lower back pain and R flank pain limiting ambulation, no bowel/bladder incontinence or sensory/motor deficits. Differential includes pain from lumbar/thoracic radiculopathy, muscle spasm, spinal injury, ureteral calculi. -Ordered MRI of lumbar spine with contrast to evaluate further for spinal pathology after 09/08 thoracolumbar XR positive for degenerative changes and patient's unremitting back pain -Thoracolumbar XR- moderate degenerative changes without acute fracture. -CTAP negative for urolithiasis, UA unremarkable. Noted distal stomach wall thickening - ? sec to gastritis. -Tylenol 1000mg po TID, heat PRN for pain, steroid taper for Galeas's palsy may improve back pain as well -Continue home Dilaudid - 4mg po q 6 hours PRN (2) Elevated troponin: Plan: Patient not experiencing any chest pain or dyspnea, non-concerning EKGs. Low suspicion for acute GA or CHF exacerbation, possibly some myocardial injury given pt's risk factors and history of cardiovascular disease. -Troponins initially increased from 0.263 on admission to 0.638, though now downtrending to currently 0.123. Will continue trending -Continue telemetry monitoring -Cardiology consulted 09/08, echocardiogram performed. Suspicion for demand ischemia from back pain and HTN, recommended restarting home metoprolol. Home metoprolol restarted. (3) Galeas's palsy: Plan: Patient with right sided Galeas's palsy, history of L-sided Galeas's palsy 7 months ago -Continue Valcyte 1000 mg TID -Continue prednisone 40 mg to reduce facial nerve inflammation/edema, will taper to 10 mg -Lacrilube [place] -Lyme serology negative (4) HTN (hypertension): Plan: -Continue home lisinopril and amlodipine -Continue home metoprolol. BPs and HR have both been consistently lower since resuming metoprolol 09/08, will monitor (5) Diabetes: Plan: -Lantus 7u BID -ISS -HbA1C pending -Goal blood sugar 100 - 150 (6) CHF (congestive heart failure): Plan: Patient currently denying dyspnea or swelling, no evidence of fluid overload on exam, last echo from August 2015 with normal LV size and function with mild LVH, EF of 55-60%. -Continue Lisinopril -Continue home Metoprolol (7) Anemia: Plan: Stable H/H at 15.2/44.2. No active bleeding (8) Asthma: Plan: Chronic. Stable, no respiratory distress since admission. Plan: F/E/N - Regular Ppx - Lovenox 30 mg qd Code - Full Dispo - Med/Surg with Telemetry Admission and Anticipated Discharge Date Admission Date: September 07, 2020 Supervising Physician Co-Signing Physician Notes Attending Attestation - Pt seen/examined, chart reviewed, care plan d/w PGY1 Dr Ioana Gutierrez. I agree w/ the torres components of his documentation. Pt continues with severe right lower back pain. Some radiating in a dermatomal type fashion to the anterior abdomen below the costal margin. No radiating pain into the buttock or right leg. VSS, no fever gen - very talkative, intermittent pain from back heart - RRR, s1 s2 lungs - cta b/l abd - soft, NT, ND BS+ ext - no edema musculo - very tender right paraspinal muscles lower t=spine and l=spine regions; tender over R SI joint; pain does radiate into the R flank neuro - strength of legs 5/5 all muscle groups; right Galeas's palsy A/P: Refractory right lower back pain with radiation to the right abdomen plan - MRI lumbar spine - r/o acute HNP, fracture, diskitis, etc if nondiagnostic then MRI thoracic spine can't rule out SI Joint dysfunction doubt GI cause of pain or cause of pain PT, OT Right Galeas's palsy - antivirals, steroids Peter Martinez MD Subjective Patient still notes back and flank pain, exacerbated by movement. States she exp eriences some relief from pain medications but has been in constant pain since admission. She is ambulating, voiding without issue, tolerating PO well. Denies any chest pain, dyspnea or lightheadedness. Review of Systems Review of Systems: All systems reviewed & are unremarkable except as noted in HPI & below Musculoskeletal: +R sided lower back pain, +R flank pain Physical Exam Physical Exam: General: patient in mild distress Skin: warm, dry, intact, no rashes or lesions HEENT: +improving right facial droop involving forehead and eyebrow PERRL, EOMI, anicteric sclera, conjunctiva without injection, moist mucus membranes, neck supple, trachea midline, no JVD Heart: +S1/S2, regular rate, low grade systolic murmur appreciated over left upper sternal border Lungs: equal air entry bilaterally, no rales/rhonchi/wheezes Abd: R flank tenderness to palpation, soft, nondistended. no masses/organomegaly/ascites Back: pain with palpation of right lumbar, paraspinous muscles Ext: warm, no clubbing/cyanosis or edema Neuro: AOx3, sensation intact b/l, 5/5 strength in b/l UE and LE Results & Data Results & Data ([facility]) Vital Signs (Past 12 Hours) Vital Signs Temp Pulse Pulse Resp BP Pulse Ox 09/09/20 07:45 62 09/09/20 07:20 36.6 C 68 20 127/66 98 09/09/20 04:04 37.0 C 67 18 127/80 94 09/08/20 23:48 72 09/08/20 23:00 37.0 C 78 18 135/69 99 Resident Activity Tracking Resident Involvement: Resident Care Provided Care Provided: Adult Hospital Medicine (1) HTN (hypertension) Hypertension type: essential hypertension Qualified Code(s): I10 - Essential (primary) hypertension
[2020-09-09] MEDS: HYDROmorphone HCL 2 MG TAB PO PRN (13:01)
[2020-09-09] MEDS: ENOXAPARIN INJ 30 MG/0.3 ML SYR SQ SCH (15:24)
--- NOTE | 2020-09-09 17:54 | Magnetic Resonance Report ---
MRI OF THE LUMBAR SPINE WITHOUT IV CONTRAST CLINICAL HISTORY: Low back pain. COMPARISON STUDY: CT of the lumbar spine dated 02/14/2018. MRI of the lumbar spine dated 08/03/2007. TECHNIQUE: MRI of the lumbar spine is performed utilizing various T1 and T2-weighted sequences in the axial and sagittal planes. IV contrast was not administered for this examination. The examination is modestly degraded by motion artifact. FINDINGS: Lumbar spine: Vertebral body height is maintained at the lumbar spine. There is minimal anterolisthes is at L4-L5. Alignment is otherwise preserved. The transverse and spinous processes appear intact. Th ere is no evidence of spondylolysis. No destructive bony lesion is seen. Small anterior osteophytes a re seen throughout. Advanced chronic degenerative endplate change is seen at T11-T12. Intervertebral discs: Degenerative disc desiccation is noted throughout the lumbar spine. There is no significant loss of height. Spinal cord: The visualized spinal cord is normal in morphology and signal intensity. The conus medul kev terminates at the level of L1. The nerve roots of the cauda equina are normal in morphology. L1-L2: Unremarkable. L2-L3: Facet arthropathy is of no consequence. The central canal and neural foramina are clear. L3-L4: There is minimal posterior disc bulge eccentric to the right. This causes mild right-sided sub articular stenosis. There is no significant acquired compromise of the central canal. There is hypert rophy of the ligamentum flavum. Facet arthropathy is of no consequence. The neural foramina are paten t. L4-L5: There is minimal posterior disc bulge. This abuts the transiting nerve roots. There is no sign ificant acquired compromise of the central canal. There is bilateral subarticular stenosis. This may impinge on the exiting right L4 nerve root. In conjunction with facet arthropathy, there is moderate, right greater than left, neural foraminal stenosis. There is hypertrophy of the ligamentum flavum. L5-S1: Facet arthropathy is of no confluence. The central canal and neural foramina are patent. Sacrum: The visualized sacrum is normal in morphology and signal intensity. Soft tissues: There is fatty atrophy of the paraspinous musculature. The retroperitoneal structures a re grossly unremarkable but incompletely evaluated. IMPRESSION: 1. Mild lumbosacral spondylosis as above. See discussion for detailed level by level analysis. 2. There is no significant acquired compromise of the central canal. 3. No destructive bony process is seen. Dictated: 09/09/2020 4:16 PM Transcribed: 09/09/2020 5:36 PM Delaney [id number] [email or web address] Electronically signed by: Stuart Shaw M.D. 09/09/2020 5:52 PM
[2020-09-09] MEDS: DOCUSATE SODIUM 100 MG CAP PO PRN (20:14)
[2020-09-09] MEDS: MELATONIN 3 MG TAB PO PRN (20:14)
[2020-09-09] MEDS: ATORVASTATIN 40 MG TAB PO SCH (20:15)
--- NOTE | 2020-09-09 21:44 | Billing Data ---
Date of Service September 09, 2020 Coding Level of Care Code 91482 Subseq Hosp Care Lvl 2
[2020-09-10] MEDS: HYDROmorphone HCL 2 MG TAB PO PRN ×2 (00:20→08:42)
[2020-09-10] MEDS ORDERED: LORazepam 0.5 MG TAB PO STA (00:22)
[2020-09-10] MEDS ORDERED: ZOLPIDEM TARTRATE 5 MG TAB PO PRN (00:25)
[2020-09-10 07:39] LABS: Basophils # (auto) 0.01 K/uL (0-0.2); Basophils % (auto) 0.1 %; Eosinophils # (auto) 0.03 K/uL (0-0.5); Eosinophils % (auto) 0.3 %; Hematocrit (blood only) 39.7 % (37-47); Hemoglobin 13.4 g/dL (12.0-16.0); Immature Granulocytes # (auto) 0.03 K/uL (0.00-0.02); Immature Granulocytes % (auto) 0.3 %; Lymphocytes # (auto) 2.84 K/uL (1.2-3.4); Lymphocytes % (auto) 25.6 %; Mean Corpuscular Hemoglobin 31.2 pg (25-34); Mean Corpuscular Hgb Conc 33.8 g/dL (32-36); Mean Corpuscular Volume 92.5 fL (80-100); Mean Platelet Volume 10.9 fL (7.4-10.4); Monocytes % (auto) 5.4 %; Neutrophils % (auto) 68.3 %; Platelet Count 231 K/uL (130-400); RDW Coefficient of Variation 12.8 % (11.5-14.5); RDW Standard Deviation 42.8 fL (36.4-46.3); Red Blood Count 4.29 M/uL (4.2-5.4); White Blood Count 11.11 K/uL (4.8-10.8)
[2020-09-10 08:13] LABS: BUN Creatinine Ratio 40.2 (10-20); Calcium 9.1 mg/dl (8.5-10.1); Creatinine Clr Calc Pharmacy 80.5 ml/min; Est GFR (Non-African American) 87.1 ml/min; Potassium 3.4 mmol/L (3.5-5.1)
[2020-09-10 08:20] LABS: Troponin I 0.171 ng/ml (0-0.045)
[2020-09-10] MEDS: predniSONE 20 MG TAB PO SCH (08:31)
[2020-09-10] MEDS: ASPIRIN 81 MG ECTAB PO SCH (08:31)
[2020-09-10] MEDS: ACETAMINOPHEN 500 MG TAB PO SCH ×3 (08:31→21:25)
[2020-09-10] MEDS: valACYclovir HCL 500 MG TABLET PO SCH ×3 (08:31→21:27)
[2020-09-10] MEDS: INSULIN GLARGINE SOLOSTAR 100 UNITS/ML 3 ML PEN SC SCH (08:32)
[2020-09-10] MEDS: lisinopril 40 MG TAB PO SCH (08:32)
[2020-09-10] MEDS: amLODIPine BESYLATE 5 MG TAB PO SCH (08:32)
[2020-09-10] MEDS: METOPROLOL SUCC 50MG EXT REL TAB PO SCH (08:32)
[2020-09-10] MEDS: INSULIN ASPART 100 UNITS/ML 3 ML PEN SC SCH ×4 (08:34→21:30)
--- NOTE | 2020-09-10 08:37 | Pharmacy Report ---
Pharmacy Glycemic Short Note 2 - Date of Service September 10, 2020 - Glycemic Short BSG Results (Last 24 hours): 09/09/20 09/09/20 09/09/20 07:46 11:55 16:37 Glucose 100 H POC Glucose 140 H 166 H 09/09/20 09/10/20 09/10/20 20:27 07:16 07:36 Glucose 203 H POC Glucose 282 H 182 H OUTPATIENT ANTIDIABETIC REGIMEN: * Hx of Levemir and Janumet * Poor compliance noted * HbA1c: 10.6% (09/08/20) ASSESSMENT: 09/10/20 * patient's BSGs yesterday were [phone]. Fasting today is 182 mg/dL. * Increase Lantus to 15 units due to elevated fasting. * Increase NPH by 8 units (correctional insulin given 09/09/20) due to climbing BSGs from prednisone. Will require reduction tomorrow but address after see how today plays out. * Tighten CR slightly to help with steroid hyperglycemia. 09/09/20 * Patient's BSGs yesterday were [phone] and overnight BSGs were 124-157 mg/dL. Fasting BSG was 98 mg/dL * Patient received 110 units of insulin yesterday (52 units of basal -- 20 units of Lantus and 32 units of NPH; 58 units of bolus). * Fasting significantly reduced today. Will reduce to 10 units daily of Lantus and titrate. * BSGs climbed significantly yesterday. Most likely due to late NPH administration plus fasting yesterday significantly elevated (271 vs 98) * Continue current NPH. Tighten CR slightly. Background * LANDY admitted on 09/07 with severe/acute back pain that was limiting function * Prednisone taper initiated to help with back pain and to treat Galeas's palsy * Received 60 mg PO yesterday and this morning - not covered with additional insulin * Pharmacy consulted for glycemic management this morning following BSG of 271 mg/dL * Will tighten Novolog and initiate 0.4 unit/kg NPH with prednisone PLAN FOR INPATIENT GLYCEMIC CONTROL: * Hold outpatient oral diabetes medications * Basal insulin * Lantus 15 units daily * NPH 40 units SC daily * Bolus insulin * NovoLog per scale ACHS or Q6hrs while NPO * Goal Range: Low 110 mg/dL - High 140 mg/dL * Correction Factor: 20 mg/dL/unit * Nutritional / Prandial insulin per carb ratio of 1 unit per 5 grams CHO consumed * checks with same parameters PLAN FOR DISCHARGE: * HbA1c of 10.6% is significantly above goal of less than 7-8% * Given history of non-compliance, should prioritize simplicity in regimen * Will follow inpatient insulin needs and make recs accordingly
[2020-09-10] MEDS: LIDOCAINE 5% 1 PATCH TD SCH (08:38)
[2020-09-10] MEDS ORDERED: INSULIN HUMAN NPH SC SCH (09:00)
--- NOTE | 2020-09-10 09:23 | Hospitalist Progress Note ---
Date of Service September 10, 2020 Assessment & Plan (1) Back pain: Plan: Patient's presenting symptoms included sudden R-sided lower back pain and R flank pain limiting ambulation, no bowel/bladder incontinence or sensory/motor deficits. Differential includes pain from lumbar/thoracic radiculopathy, muscle spasm, spinal injury, ureteral calculi. -MRI of lumbar spine 09/09- T11-T12 degenerative changes, L4-L5 demonstrating R > L moderate foraminal stenosis with possible impingement of L4 nerve root. Radiculopathy more likely in light of imaging results. -MRI thoracic spine ordered 09/11 -Thoracolumbar XR- moderate degenerative changes without acute fracture. -CTAP negative for urolithiasis, UA unremarkable. Noted distal stomach wall thickening- possible gastritis. -Tylenol 1000mg po TID, heat PRN for pain, steroid taper for Galeas's palsy may improve back pain as well -Home Dilaudid currently discontinued, replaced with PRN Toradol 15 mg q6h for pain. Will attempt to transition to oxycodone for pain if Toradol inadequate -PT/OT involved (2) Elevated troponin: Plan: Patient not experiencing any chest pain or dyspnea, non-concerning EKGs. Low suspicion for acute WA or CHF exacerbation, possibly some myocardial injury given pt's risk factors and history of cardiovascular disease. -Troponins initially increased from 0.263 on admission to 0.638, though downtrending and currently 0.171. Will continue trending -Continue telemetry monitoring -Cardiology consulted 09/08, echocardiogram performed. Suspicion for demand ischemia from back pain and HTN, recommended restarting home metoprolol. Home metoprolol restarted. (3) Galeas's palsy: Plan: Patient with right sided Galeas's palsy, history of L-sided Galeas's palsy 7 months ago -Continue Valcyte 1000 mg TID -Continue prednisone 40 mg to reduce facial nerve inflammation/edema, will taper to 10 mg -Lacrilube PRN -Lyme serology negative (4) HTN (hypertension): Plan: -Continue home lisinopril and amlodipine -Continue home metoprolol. BPs and HR have both been consistently lower since resuming metoprolol 09/08, will monitor (5) Diabetes: Plan: -Lantus 7u BID -ISS -HbA1C pending -Goal blood sugar 100 - 150 (6) CHF (congestive heart failure): Plan: Patient currently denying dyspnea or swelling, no evidence of fluid overload on exam, last echo from August 2015 with normal LV size and function with mild LVH, EF of 55-60%. -Continue Lisinopril -Continue home Metoprolol (7) Anemia: Plan: Stable H/H at 15.2/44.2. No active bleeding (8) Asthma: Plan: Chronic. Stable, no respiratory distress since admission. Plan: F/E/N - Carb consistent, DM2 Ppx - Lovenox 30 mg qd Code - Full Dispo - Med/Surg with Telemetry Admission and Anticipated Discharge Date Admission Date: September 07, 2020 Supervising Physician Co-Signing Physician Notes Attending Attestation - Pt seen/examined, chart reviewed, care plan d/w PGY1 Dr Ioana Gutierrez. I agree w/ the torres components of his documentation. Pt continues with right-sided back pain with radiation to right anterior abdomen. Worsened by movements, rolling, etc. Still no leg pains. Eating well. No abdominal pains. VSS, no fever gen - NAD, looks better than yesterday heart - RRR, s1 s2 lungs - cta b/l abd - soft, NT, ND BS+ ext - no edema musculo - still quite tender right paraspinal muscles lower t=spine and l=spine regions neuro - strength of legs 5/5 all muscle groups; right Galeas's palsy unchanged A/P: 1. suspected thoracic spine DJD with ?right-sided radiculopathy? - pain wraps around from the spine to the midline of abdomen in a dermatomal distribution. Obtain dedicated thoracic spine MRI. Lumbar spine MRI yesterday with mod-severe DJD, HNP in various locations, foraminal stenoses, etc. Patient was taking gabapentin at home - dose uncertain. Will resume at low dose of 100mg TID until we can verify her dosing. Cont steroids, toradol x 2 doses, lidoderm patches, etc 2. chronic narcotic dependence - PDMP shows chronic dilaudid usage dating back to 2019. Prescribing MD has office in [place]? need to investigate further what the narcotics are for, etc. 3. uncontrolled T2DM - pharmacy managing. 4. right-sided Galeas's palsy - recent lyme negative. Cont valtrex. Cont steroids. is the Galeas's palsy linked in some way to #1? consider neuro consultation. PT, OT - cleared for home. Peter Martinez MD Subjective Patient still notes back and flank pain, exacerbated by movement but slightly improved today, 6/10 severity. She is ambulating, voiding without issue, tolera ting PO well. Denies any chest pain, dyspnea or lightheadedness. Reports sleeping difficulty last night which improved with Ativan. Review of Systems Review of Systems: All systems reviewed & are unremarkable except as noted in Subjective Musculoskeletal: +R sided lower back pain, +R flank pain Physical Exam Physical Exam: General: patient in mild distress Skin: warm, dry, intact, no rashes or lesions HEENT: +improving right facial droop involving forehead and eyebrow PERRL, EOMI, anicteric sclera, conjunctiva without injection, moist mucus membranes, neck supple, trachea midline, no JVD Heart: +S1/S2, regular rate, low grade systolic murmur appreciated over left upper sternal border Lungs: equal air entry bilaterally, no rales/rhonchi/wheezes Abd: R flank tenderness to palpation, soft, nondistended. no masses/organomegaly/ascites Back: pain with palpation of right lumbar and paraspinous muscles, R SI joint Ext: warm, no clubbing/cyanosis or edema Neuro: AOx3, sensation intact b/l, 5/5 strength in b/l UE and LE, unable to elicit DTRs Results & Data Results & Data ([facility]) Vital Signs (Past 12 Hours) Vital Signs Temp Pulse Pulse Resp BP Pulse Ox 09/10/20 08:30 36.4 C L 65 16 142/60 H 100 09/10/20 07:16 67 09/10/20 04:00 36.6 C 76 18 147/76 H 99 09/10/20 00:00 36.7 C 69 18 132/76 93 09/09/20 23:44 54 L Laboratory Results Laboratory Results - last 24 hr 09/10/20 09/10/20 09/10/20 07:16 07:16 07:36 WBC 11.11 H RBC 4.29 Hgb 13.4 Hct 39.7 MCV 92.5 MCH 31.2 MCHC 33.8 RDW Std Deviation 42.8 RDW Coeff of Parish 12.8 Plt Count 231 MPV 10.9 H Immature Gran % (Auto) 0.3 Neut % (Auto) 68.3 Lymph % (Auto) 25.6 Garvin % (Auto) 5.4 Eos % (Auto) 0.3 Baso % (Auto) 0.1 Neut # (Auto) 7.60 H Lymph # (Auto) 2.84 Garvin # (Auto) 0.60 H Eos # (Auto) 0.03 Baso # (Auto) 0.01 Immature Gran # (Auto) 0.03 H Sodium 140 Potassium 3.4 L Chloride 108 H Carbon Dioxide 29 Anion Gap 3.0 BUN 25 H Creatinine 0.63 Est Cr Clr Drug Dosing 80.5 Est GFR ( Amer) 101.0 Est GFR (Non-Af Amer) 87.1 BUN/Creatinine Ratio 40.2 H Glucose 203 H POC Glucose 182 H Calcium 9.1 Troponin I 0.171 H* 09/10/20 09/10/20 09/10/20 11:46 16:53 16:55 WBC RBC Hgb Hct MCV MCH MCHC RDW Std Deviation RDW Coeff of Parish Plt Count MPV Immature Gran % (Auto) Neut % (Auto) Lymph % (Auto) Garvin % (Auto) Eos % (Auto) Baso % (Auto) Neut # (Auto) Lymph # (Auto) Garvin # (Auto) Eos # (Auto) Baso # (Auto) Immature Gran # (Auto) Sodium Potassium Chloride Carbon Dioxide Anion Gap BUN Creatinine Est Cr Clr Drug Dosing Est GFR ( Amer) Est GFR (Non-Af Amer) BUN/Creatinine Ratio Glucose POC Glucose 139 H 362 H* 360 H* Calcium Troponin I Resident Activity Tracking Resident Involvement: Resident Care Provided Care Provided: Adult Hospital Medicine (1) HTN (hypertension) Hypertension type: essential hypertension Qualified Code(s): I10 - Essential (primary) hypertension
[2020-09-10] MEDS ORDERED: KETOROLAC TROMETHAMINE 15 MG/ML VIAL IV PRN (11:15)
--- NOTE | 2020-09-10 13:31 | Cardiology Progress Note ---
Date of Service September 10, 2020 Assessment & Plan (1) Demand ischemia: Plan: No further chest pain. Hemodynamics reasonable on current vasoactive regimen. Dobutamine stress echo or Lexiscan to further risk stratify, this can be done as an outpatient if necessary (if unable to tolerate inpatient study due to back pain). (2) HTN (hypertension): Plan: BP mildly hypertensive, could add back diuretic. She is on PRN furosemide as an outpatient, but I believe she takes this infrequently. Consider daily spironolactone given her mild hypokalemia. (3) Back pain: Admission and Anticipated Discharge Date Admission Date: September 07, 2020 Subjective Patient feeling significantly better today. Still notes flank pain but able to walk to the bathroom. Denies any further chest pain over the past several days. Denies dyspnea or lightheadedness. Telemetry shows sinus rhythm in the 60 bpm range. Physical Exam Physical Exam: No distress. BP mildly hypertensive. Pulse 56 bpm and regular without ectopy. Skin: no ecchymoses or generalized lesions. HEENT: Right peripheral facial palsy. Neck: no JVD or obvious carotid bruits. Lungs: clear bilaterally. Cardiac: regular rhythm, normal S1, intact aortic closure sound, 2/6 basal systolic ejection murmur, 2/6 apical holosystolic murmur, no diastolic murmur or gallop. Abdomen: benign. Extremities: no edema, pulses intact. Neurologic: Normal affect and conversation, right-sided Galeas's palsy, otherwise grossly nonfocal. Results & Data ([facility]) Vital Signs (Past 12 Hours) Vital Signs Temp Pulse Pulse Resp BP BP Pulse Ox 09/10/20 12:00 98.1 F 55 L 18 143/75 H 97 09/10/20 08:30 97.5 F L 65 16 142/60 H 100 09/10/20 07:16 67 09/10/20 04:00 97.9 F 76 18 147/76 H 99 Laboratory Results Persistent mild troponin elevation, 0.184 yesterday and 0.171 today. Normal CBC. Potassium 3.4 with otherwise normal electrolytes, BUN 25, creatinine 0.63. PG Care Time/CCT Total # of Minutes Spent Total Time Spent with Patient: Total time spent is greater than 50% in coordination of care (as documented) at patient's floor/unit and/or counseling patient: Coding Level of Care Code 88442 Subseq Hosp Care Lvl 3 Diagnoses Demand ischemia I24.8 Back pain M54.9 HTN (hypertension) I10 Hypertension type: essential hypertension (1) HTN (hypertension) Hypertension type: essential hypertension Qualified Code(s): I10 - Essential (primary) hypertension
[2020-09-10] MEDS ORDERED: GADOBUTROL 7.5ML VIAL IV ONE (13:33)
--- NOTE | 2020-09-10 16:01 | Magnetic Resonance Report ---
MR thoracic spine wo/w con HISTORY: 75 years-old Female Back pain chronic mid back pain. COMPARISON: Lumbar spine MRI 09/09/2020, MRI thoracic spine 12/09/2005. TECHNIQUE: Multiplanar multisequence MRI of the thoracic spine was obtained both with and without the use of Gadavist. FINDINGS: The store leader localizer images demonstrate no gross extraspinal abnormality. Degenerative changes are not ed involving the imaged lumbar spine. Signal within the thoracic spinal cord is unremarkable. Conus m edullaris terminates at T12-L1. Mild marrow edema involving the superior endplate of T9 and also at T 11-T12 is suggestive of Modic type I endplate degeneration with mild associated enhancement. No defin ite acute fracture, subluxation, endplate erosion or soft tissue edema. There is mostly mild multilev el intervertebral disc space narrowing with associated spondylitic spurring and annular disc bulging with moderate facet arthrosis. Findings have progressed from 12/09/2005. Posterior disc osteophyte co mplex formations of the lower cervical spine. No high-grade central canal stenosis. No abnormal enhan cement. Mild bilateral neural foraminal narrowing at T9-T10. At T10-T11, there is a posterior annular disc bulge which is noted in conjunction with facet arthrosi s causing mild central canal stenosis, AP dimension of the thecal sac measuring 7 mm. Additionally, t his results in mild bilateral neural foraminal narrowing. At T11-T12, there is moderate intervertebral disc space narrowing with posterior disc osteophyte comp beatriz. No central canal stenosis. There is mild left-sided neural foraminal narrowing. IMPRESSION: 1. No acute fracture or subluxation. 2. Discogenic degenerative changes with spondylitic spurring and facet arthrosis as above. 3. No high-grade central canal or neural foraminal narrowing identified. 4. Mild Modic type I endplate degenerative changes at T8-T9 and T11-T12. ACT 112: Negative or not required by law. The above report was generated using voice recognition software. It may contain grammatical, syntax o r spelling errors. Dictated: 09/10/2020 3:20 PM Transcribed: 09/10/2020 3:52 PM Maral [id number] [email or web address] Electronically signed by: Joe Shah M.D. 09/10/2020 3:59 PM
[2020-09-10] MEDS ORDERED: LORazepam 0.5 MG TAB PO PRN (16:23)
[2020-09-10] MEDS: ENOXAPARIN INJ 30 MG/0.3 ML SYR SQ SCH (17:29)
[2020-09-10] MEDS: oxyCODONE HCL IR 5 MG TAB (IMMEDIATE RELEASE) PO PRN (17:37)
--- NOTE | 2020-09-10 21:10 | Billing Data ---
Date of Service September 10, 2020 Coding Level of Care Code 70320 Subseq Hosp Care Lvl 2
[2020-09-10] MEDS: GABAPENTIN 100 MG CAP PO SCH (21:25)
[2020-09-10] MEDS: ATORVASTATIN 40 MG TAB PO SCH (21:27)
[2020-09-10] MEDS: bisacodyL 5 MG TABEC PO PRN (22:48)
[2020-09-11] MEDS: INSULIN ASPART 100 UNITS/ML 3 ML PEN SC SCH ×6 (00:16→21:21)
[2020-09-11] MEDS: oxyCODONE HCL IR 5 MG TAB (IMMEDIATE RELEASE) PO PRN (00:17)
[2020-09-11] MEDS: DOCUSATE SODIUM 100 MG CAP PO PRN ×3 (00:18→21:10)
[2020-09-11] MEDS ORDERED: PHARMACY GLYCEMIC MGMT CONSULT STA (06:44)
--- NOTE | 2020-09-11 07:06 | Hospitalist Progress Note ---
Date of Service September 11, 2020 Assessment & Plan (1) Back pain: Plan: Patient's presenting symptoms included sudden R-sided lower back pain and R flank pain limiting ambulation, no bowel/bladder incontinence or sensory/motor deficits. Differential includes pain from lumbar/thoracic radiculopathy, muscle spasm, spinal injury, ureteral calculi. Back pain most likely due to combination of degenerative changes in spine and demand ischemia 2/2 cardiovascular disease -MRI of lumbar spine 09/09- T11-T12 degenerative changes, L4-L5 demonstrating R > L moderate foraminal stenosis with possible impingement of L4 nerve root. Radiculopathy more likely in light of imaging results. -MRI thoracic spine- degenerative changes in T8-T9, T11-T12, facet arthrosis -Thoracolumbar XR- moderate degenerative changes without acute fracture. -CTAP negative for urolithiasis, UA unremarkable. Noted distal stomach wall thickening- possible gastritis. -Tylenol 1000mg po TID, heat PRN for pain, lidoderm patch, steroid taper for Galeas's palsy may improve back pain as well -Gabapentin 100 mg TID -Home Dilaudid resumed 0.5 mg IV q4h PRN, 4 mg PO q6h PRN due to inadequate relief from oxycodone -PT/OT involved, recommended return to home -Pt's back pain most likely due to thoracolumbar radiculopathy, will respond best to chiropractic decompression therapy. To be done outpatient (2) Elevated troponin: Plan: Patient not experiencing any chest pain or dyspnea, non-concerning EKGs. Low suspicion for acute RI or CHF exacerbation, possibly some myocardial injury given pt's risk factors and history of cardiovascular disease. -Troponins initially increased from 0.263 on admission to 0.638, though downtrending and currently 0.171. Will continue trending -Continue telemetry monitoring -Cardiology consulted 09/08, echocardiogram performed. Suspicion for demand ischemia from back pain and HTN, recommended restarting home metoprolol. Home metoprolol restarted. (3) Galeas's palsy: Plan: Patient with right sided Galeas's palsy, history of L-sided Galeas's palsy 7 months ago -Continue Valcyte 1000 mg TID -Continue prednisone 40 mg to reduce facial nerve inflammation/edema, will taper to 10 mg -Lacrilube PRN -Lyme serology negative (4) HTN (hypertension): Plan: -Continue home lisinopril and amlodipine -Continue home metoprolol. BPs and HR have both been consistently lower since resuming metoprolol 09/08, will monitor -Recent elevations in BP likely due to prednisone-mediated effect (5) Diabetes: Plan: -Lantus 7u BID -ISS -HbA1C 10.6% -Goal blood sugar 100 - 150 -Pt counseled today about dietary/lifestyle modifications that improve glycemic control due to recent elevated blood sugars attributed to consumption of sugary snacks during hospital stay (6) CHF (congestive heart failure): Plan: Patient currently denying dyspnea or swelling, no evidence of fluid overload on exam, last echo from August 2015 with normal LV size and function with mild LVH, EF of 55-60%. -Continue Lisinopril -Continue home Metoprolol (7) Anemia: Plan: Stable H/H at 15.2/44.2. No active bleeding (8) Asthma: Plan: Chronic. Stable, no respiratory distress since admission. Plan: F/E/N - Carb consistent, DM2 Ppx - Lovenox 30 mg qd Code - Full Dispo - home tomorrow Admission and Anticipated Discharge Date Admission Date: September 07, 2020 Supervising Physician Co-Signing Physician Notes I personally examined the patient and verified all torres points of history and exam, discussed case, and agree with decision making with Dr Gutierrez. Back pain about the same. Expresses very little understanding of "why to care" as it relates to her diabetes. Vitals noted, in general she is awake and alert overall pleasant no distress, although occasionally she grimaces in pain when she moves. HEENT normocephalic atraumatic mucous membranes are moist. Breathing unlabored no accessory muscle use good effort. She has right-sided paraspinal hypertonicity that is very tender. Moving across about a T11 dermatome she has a little bit of diminished sensation on the right. Back painseems to be paraspinal spasm as well as a lower thoracic radiculopathy. Continue current care, add topical diclofenac to paraspinals, discussed extensively decompression therapy after discharge. Uncontrolled type 2 diabetestried to lay a foundation of "why to care" (high sugars clog arteries), and the critical role of lifestyle management in type 2 diabetes. Patient expressed a reasonable degree of understanding. Subjective Pt reporting considerable R sided lower back and R flank pain, states oxycodone did not help relieve pain on day prior. Denies chest pain, dyspnea Review of Systems Review of Systems: All systems reviewed & are unremarkable except as noted in Subjective Musculoskeletal: +R sided lower back pain, +R flank pain Physical Exam Physical Exam: General: patient in mild distress Skin: warm, dry, intact, no rashes or lesions HEENT: +right facial droop involving forehead and eyebrow PERRL, EOMI, anicteric sclera, conjunctiva without injection, moist mucus membranes, neck supple, trachea midline, no JVD Heart: +S1/S2, regular rate, low grade systolic murmur appreciated over left upper sternal border Lungs: equal air entry bilaterally, no rales/rhonchi/wheezes Abd: R flank tenderness to palpation, soft, nondistended. no masses/organomegaly/ascites Back: pain with palpation of right lumbar and paraspinous muscles, R SI joint Ext: warm, no clubbing/cyanosis or edema Neuro: AOx3, R facial muscle weakness, sensation intact b/l UE and LE, 5/5 strength in b/l UE and LE, unable to elicit DTRs Results & Data Results & Data ([facility]) Vital Signs (Past 12 Hours) Vital Signs Temp Pulse Pulse Resp BP Pulse Ox 09/11/20 04:09 68 09/11/20 04:00 36.5 C 76 18 143/85 H 100 09/11/20 00:00 36.7 C 59 L 18 147/77 H 98 09/10/20 20:00 36.7 C 65 18 160/73 H 100 Resident Activity Tracking Resident Involvement: Resident Care Provided Care Provided: Adult Hospital Medicine (1) HTN (hypertension) Hypertension type: essential hypertension Qualified Code(s): I10 - Essential (primary) hypertension
[2020-09-11 07:49] LABS: Basophils # (auto) 0.01 K/uL (0-0.2); Basophils % (auto) 0.1 %; Eosinophils # (auto) 0.05 K/uL (0-0.5); Eosinophils % (auto) 0.4 %; Hematocrit (blood only) 41.3 % (37-47); Hemoglobin 14.2 g/dL (12.0-16.0); Immature Granulocytes # (auto) 0.04 K/uL (0.00-0.02); Immature Granulocytes % (auto) 0.3 %; Lymphocytes # (auto) 4.34 K/uL (1.2-3.4); Lymphocytes % (auto) 34.7 %; Mean Corpuscular Hemoglobin 31.2 pg (25-34); Mean Corpuscular Hgb Conc 34.4 g/dL (32-36); Mean Corpuscular Volume 90.8 fL (80-100); Mean Platelet Volume 10.7 fL (7.4-10.4); Monocytes # (auto) 0.64 K/uL (0.11-0.59); Monocytes % (auto) 5.1 %; Neutrophils # (auto) 7.43 K/uL (1.4-6.5); Neutrophils % (auto) 59.4 %; Platelet Count 242 K/uL (130-400); RDW Coefficient of Variation 12.6 % (11.5-14.5); RDW Standard Deviation 41.7 fL (36.4-46.3); Red Blood Count 4.55 M/uL (4.2-5.4); White Blood Count 12.51 K/uL (4.8-10.8)
[2020-09-11] MEDS: LIDOCAINE 5% 1 PATCH TD SCH (08:08)
[2020-09-11 08:16] LABS: BUN Creatinine Ratio 30.1 (10-20); Calcium 9.1 mg/dl (8.5-10.1); Creatinine Clr Calc Pharmacy 70.9 ml/min; Est GFR (African American) 92.7 ml/min; Potassium 3.4 mmol/L (3.5-5.1)
[2020-09-11] MEDS: INSULIN GLARGINE SOLOSTAR 100 UNITS/ML 3 ML PEN SC SCH (08:21)
[2020-09-11] MEDS: INSULIN HUMAN NPH SC SCH (08:22)
[2020-09-11] MEDS: GABAPENTIN 100 MG CAP PO SCH ×3 (08:23→21:02)
[2020-09-11] MEDS: ACETAMINOPHEN 500 MG TAB PO SCH ×3 (08:23→20:59)
[2020-09-11] MEDS: ASPIRIN 81 MG ECTAB PO SCH (08:26)
[2020-09-11] MEDS: amLODIPine BESYLATE 5 MG TAB PO SCH (08:26)
[2020-09-11] MEDS: lisinopril 40 MG TAB PO SCH (08:27)
[2020-09-11] MEDS: predniSONE 20 MG TAB PO SCH (08:27)
[2020-09-11] MEDS: valACYclovir HCL 500 MG TABLET PO SCH ×3 (08:27→21:02)
[2020-09-11] MEDS: METOPROLOL SUCC 50MG EXT REL TAB PO SCH (08:27)
[2020-09-11] MEDS: diphenhydrAMINE Capsule 25 MG CAP PO PRN (08:37)
[2020-09-11] MEDS ORDERED: hydrALAZINE 10 MG TAB PO PRN (09:29)
[2020-09-11] MEDS: HYDROmorphone INJ 0.5 MG/0.5 ML SYR IV PRN ×2 (09:51→15:36)
--- NOTE | 2020-09-11 10:08 | Cardiology Progress Note ---
Date of Service September 11, 2020 Assessment & Plan (1) Demand ischemia: Plan: No further chest pain. Since she is still an inpatient and her back pain is improved to the point that she can ambulate and transfer (albeit with some difficulty), will proceed to dobutamine stress echocardiogram to further stratify her cardiac risk. (2) HTN (hypertension): Plan: BP mildly hypertensive, could add back diuretic. She is on PRN furosemide as an outpatient, but I believe she takes this infrequently. Consider daily spironolactone given her mild hypokalemia. (3) Back pain: Admission and Anticipated Discharge Date Admission Date: September 07, 2020 Subjective Patient initiated on narcotics for back pain, still complains of breakthrough right flank pain. No chest pain since her initial episode shortly after admission. Telemetry showed sinus rhythm in the 70 bpm range without ectopy or dysrhythmia. Physical Exam Physical Exam: No distress. BP moderately hypertensive. Pulse 76 bpm and regular without ectopy. Skin: no ecchymoses or generalized lesions. HEENT: Right peripheral facial palsy. Neck: no JVD or obvious carotid bruits. Lungs: clear bilaterally. Cardiac: regular rhythm, normal S1, intact aortic closure sound, 2/6 basal systolic ejection murmur, 2/6 apical holosystolic murmur, no diastolic murmur or gallop. Abdomen: benign. Extremities: no edema, pulses intact. Neurologic: Normal affect and conversation, right-sided Galeas's palsy, otherwise grossly nonfocal. Results & Data ([facility]) Vital Signs (Past 12 Hours) Vital Signs Temp Pulse Pulse Resp BP BP Pulse Ox 09/11/20 08:00 97.5 F L 76 20 187/96 H 187/100 H 93 09/11/20 07:50 73 09/11/20 04:09 68 09/11/20 04:00 97.7 F 76 18 143/85 H 100 09/11/20 00:00 98.1 F 59 L 18 147/77 H 98 Laboratory Results Potassium 3.4, otherwise normal electrolytes, BUN 22, creatinine 0.73. PG Care Time/CCT Total # of Minutes Spent Total Time Spent with Patient: Total time spent is greater than 50% in coordination of care (as documented) at patient's floor/unit and/or counseling patient: Coding Level of Care Code 04319 Subseq Hosp Care Lvl 2 Diagnoses Demand ischemia I24.8 HTN (hypertension) I10 Hypertension type: essential hypertension Back pain M54.9 (1) HTN (hypertension) Hypertension type: essential hypertension Qualified Code(s): I10 - Essential (primary) hypertension
[2020-09-11] MEDS ORDERED: DOBUTamine HCL 12.5 MG/ML 20 ML VIAL IV ONE (10:30)
[2020-09-11] MEDS ORDERED: ATROPINE SULFATE 0.1 MG/ML 10ML SYR IV ONE (10:30)
[2020-09-11] MEDS ORDERED: METOPROLOL TARTRATE 1 MG/ML VIAL IV ONE (10:30)
[2020-09-11] MEDS: HYDROmorphone HCL 2 MG TAB PO PRN (13:07)
--- NOTE | 2020-09-11 13:23 | Pharmacy Report ---
Pharmacy Glycemic Short Note 2 - Date of Service September 11, 2020 - Glycemic Short BSG Results (Last 24 hours): 09/10/20 09/10/20 09/10/20 16:53 16:55 21:10 Glucose POC Glucose 362 H* 360 H* 401 H* 09/10/20 09/11/20 09/11/20 21:12 00:03 04:18 Glucose POC Glucose 366 H* 245 H 297 H 09/11/20 09/11/20 09/11/20 07:06 07:37 12:10 Glucose 111 H POC Glucose 113 H 147 H 09/11/20 12:27 Glucose POC Glucose 155 H OUTPATIENT ANTIDIABETIC REGIMEN: * Hx of Levemir and Janumet * Poor compliance noted * HbA1c: 10.6% (09/08/20) ASSESSMENT: 09/11/20 * Patient received total of 122 units of insulin yesterday, of which 40 units were NPH and 15 units were Lantus * Patient snacking evening/overnight last night - BSGs in 300-400s. Per RN patient eating a lot of sweets (ice tea, cookies, cake etc). Education provided to patient about monitoring diet. Provider contacted this morning regarding increased monitoring. * Fasting BSG 111 mg/dL - plan to continue same basal insulin for now. Hard to assess as overnight eating/snacking. * Prednisone dosing decreased this AM by 50% - plan to decrease NPH by 50% from day prior. Loosened CR as well to account for decrease in steroid 09/10/20 * patient's BSGs yesterday were [phone]. Fasting today is 182 mg/dL. * Increase Lantus to 15 units due to elevated fasting. * Increase NPH by 8 units (correctional insulin given 09/09/20) due to climbing BSGs from prednisone. Will require reduction tomorrow but address after see how today plays out. * Tighten CR slightly to help with steroid hyperglycemia. 09/09/20 * Patient's BSGs yesterday were [phone] and overnight BSGs were 124-157 mg/dL. Fasting BSG was 98 mg/dL * Patient received 110 units of insulin yesterday (52 units of basal -- 20 units of Lantus and 32 units of NPH; 58 units of bolus). * Fasting significantly reduced today. Will reduce to 10 units daily of Lantus and titrate. * BSGs climbed significantly yesterday. Most likely due to late NPH administration plus fasting yesterday significantly elevated (271 vs 98) * Continue current NPH. Tighten CR slightly. Background * LANDY admitted on 09/07 with severe/acute back pain that was limiting function * Prednisone taper initiated to help with back pain and to treat Galeas's palsy * Received 60 mg PO yesterday and this morning - not covered with additional insulin * Pharmacy consulted for glycemic management this morning following BSG of 271 mg/dL * Will tighten Novolog and initiate 0.4 unit/kg NPH with prednisone PLAN FOR INPATIENT GLYCEMIC CONTROL: * Hold outpatient oral diabetes medications * Basal insulin * Lantus 15 units daily * NPH 20 units SC daily * Bolus insulin * NovoLog per scale ACHS or Q6hrs while NPO * Goal Range: Low 110 mg/dL - High 140 mg/dL * Correction Factor: 20 mg/dL/unit * Nutritional / Prandial insulin per carb ratio of 1 unit per 8 grams CHO consumed * ,04 checks with same parameters PLAN FOR DISCHARGE: * HbA1c of 10.6% is significantly above goal of less than 7-8% * Given history of non-compliance, should prioritize simplicity in regimen * Will follow inpatient insulin needs and make recs accordingly
[2020-09-11] MEDS ORDERED: HYDROmorphone INJ 0.5 MG/0.5 ML SYR IV PRN (16:37)
[2020-09-11] MEDS: ENOXAPARIN INJ 30 MG/0.3 ML SYR SQ SCH (16:55)
--- NOTE | 2020-09-11 16:57 | XCELERA ---
[id number]
--- NOTE | 2020-09-11 18:23 | Billing Data ---
Date of Service September 11, 2020 Coding Level of Care Code 77783 Subseq Hosp Care Lvl 3
[2020-09-11] MEDS: ATORVASTATIN 40 MG TAB PO SCH (21:02)
[2020-09-11] MEDS: DICLOFENAC SOD 1% GEL 100 GM TUBE EXT SCH (21:09)
[2020-09-11] MEDS: bisacodyL 5 MG TABEC PO PRN (21:10)
[2020-09-12] MEDS ORDERED: INSULIN ASPART 100 UNITS/ML 3 ML PEN SC SCH (07:30)
[2020-09-12] MEDS ORDERED: HYDROmorphone INJ 0.5 MG/0.5 ML SYR IV PRN (07:52)
--- NOTE | 2020-09-12 08:13 | Cardiology Progress Note ---
Date of Service September 12, 2020 Assessment & Plan (1) Demand ischemia: Plan: Dobutamine stress echocardiogram negative for myocardial ischemia at 89% maximum predicted heart rate. No further cardiac work-up necessary at this time. (2) HTN (hypertension): Plan: BP improving with pain management. If BP rises again, please see prior suggestions for management. (3) Back pain: Plan: Per primary team. Will sign off, please contact if any change in her clinical status or additional cardiac concerns arise. Thank you. Admission and Anticipated Discharge Date Admission Date: September 07, 2020 Subjective Still with back pain, no chest pain since her initial episode shortly after admission. Telemetry benign, sinus rhythm without any dysrhythmias. Dobutamine stress echocardiogram yesterday showed no ischemia at 89% maximum predicted heart rate. Physical Exam Physical Exam: No distress. BP normotensive today. Pulse 60 bpm and regular without ectopy. Skin: no ecchymoses or generalized lesions. HEENT: Right peripheral facial palsy. Neck: no JVD or obvious carotid bruits. Lungs: clear bilaterally. Cardiac: regular rhythm, normal S1, intact aortic closure sound, 2/6 basal systolic ejection murmur, 2/6 apical holosystolic murmur, no diastolic murmur or gallop. Abdomen: benign. Extremities: no edema, pulses intact. Neurologic: Normal affect and conversation, right-sided Galeas's palsy, otherwise grossly nonfocal. Results & Data ([facility]) Vital Signs (Past 12 Hours) Vital Signs Temp Pulse Pulse Resp BP Pulse Ox 09/12/20 07:14 56 L 09/12/20 03:08 97.9 F 69 16 112/60 99 09/12/20 00:18 61 09/11/20 23:23 98.1 F 72 18 116/57 L 100 Laboratory Results Normal electrolytes, BUN 22, creatinine 0.77. PG Care Time/CCT Total # of Minutes Spent Total Time Spent with Patient: Total time spent is greater than 50% in coordination of care (as documented) at patient's floor/unit and/or counseling patient: Coding Level of Care Code 60506 Subseq Hosp Care Lvl 3 Diagnoses Demand ischemia I24.8 HTN (hypertension) I10 Hypertension type: essential hypertension Back pain M54.9 (1) HTN (hypertension) Hypertension type: essential hypertension Qualified Code(s): I10 - Essential (primary) hypertension
[2020-09-12 08:14] LABS: Hematocrit (blood only) 36.3 % (37-47); Hemoglobin 12.1 g/dL (12.0-16.0); Mean Corpuscular Hemoglobin 30.7 pg (25-34); Mean Corpuscular Hgb Conc 33.3 g/dL (32-36); Mean Corpuscular Volume 92.1 fL (80-100); Mean Platelet Volume 10.5 fL (7.4-10.4); Platelet Count 220 K/uL (130-400); RDW Standard Deviation 43.5 fL (36.4-46.3); Red Blood Count 3.94 M/uL (4.2-5.4); White Blood Count 11.66 K/uL (4.8-10.8)
[2020-09-12 08:46] LABS: BUN Creatinine Ratio 29.1 (10-20); Calcium 8.3 mg/dl (8.5-10.1); Creatinine Clr Calc Pharmacy 67.2 ml/min; Est GFR (African American) 86.9 ml/min; Potassium 4.1 mmol/L (3.5-5.1)
[2020-09-12] MEDS ORDERED: INSULIN GLARGINE SOLOSTAR 100 UNITS/ML 3 ML PEN SC SCH (09:00)
[2020-09-12] MEDS ORDERED: INSULIN HUMAN NPH SC SCH (09:00)
--- NOTE | 2020-09-12 09:18 | Discharge Summary ---
Date of Service September 13, 2020 Admission HPI Per Admitting Provider Genie Rivas is a pleasant 75yo AA female with history of CHF, DM, HTN presenting with 3-4 days of right sided back pain. Patient reports pain began suddenly - located in right flank and lumbar region. Pain is severe, "spasms". She denies trauma, falls, lifting. Pain yesterday was so severe that she was unable to get out of bed. She denies urinary or fecal complaints - she has been incontinent of urine but due to her immobility. Also with Newell palsy involving her right face that started 3-4 days ago. 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 She is complaining of right eye tearing Stopped all home medications aside from pain medication " a while ago" No additional complaints at this time. Specifically denies fever/chills/chest pain/SOB/palpitations/abdominal/nausea/vomiting/diarrhea/constipation/dysuria. No numbness/tingling or focal weakness aside from right face/Newell Palsy ER Course: Dilaudid Admission Exam Per Admitting Provider General: patient resting comfortably, NAD, non-toxic in appearance, AA&O x 4 Skin: warm, dry, intact, no rashes or lesions HEENT: NC/AT, PERRL, EOMI, anicteric sclera, conjunctiva without injection, external ear normal to inspection and nontender, nares patent, moist mucus membranes, dentition intact, no oropharyngeal lesions, neck supple, trachea midline, no LAD, no thyromegaly, no JVD, right facial droop involving forehead and eyebrow Heart: +S1/S2, regular, no m/r/g Lungs: equal air entry bilaterally, no rales/rhonchi/wheezes Abd: +BS, soft, NT/ND, no masses/organomegaly/ascites +Back pain with palpation of right lumbar, paraspinal musculature with spasm Ext: warm, 2+ pulses in UE/LE bilaterally, no clubbing/cyanosis or edema Neuro: nonfocal, patient AA&O x 4, speech intact, no facial droop, moving all extremities on command with equal strength 5/5 Principal Diagnosis Thoracolumbar radiculopathy Discharge Exam General: patient in mild distress Skin: warm, dry, intact, no rashes or lesions HEENT: +right facial droop involving forehead and eyebrow PERRL, EOMI, anicteric sclera, conjunctiva without injection, moist mucus membranes, neck supple, trachea midline, no JVD Heart: +S1/S2, regular rate, low grade systolic murmur appreciated over left upper sternal border Lungs: equal air entry bilaterally, no rales/rhonchi/wheezes Abd: R flank tenderness to palpation slightly improving, soft, nondistended. no masses/organomegaly/ascites Back: pain with palpation of right lumbar and paraspinous muscles, R SI joint, slight improvement Ext: warm, no clubbing/cyanosis or edema Neuro: AOx3, R facial muscle weakness, sensation intact b/l UE and LE, 5/5 strength in b/l UE and LE, unable to elicit DTRs Discharge Data Allergies Allergy/AdvReac Type Severity Reaction Status Date / Time Cephalosporins Allergy Intermediate RINGING OF Verified 09/07/20 10:43 EARS,FALLING BALANCE ISSUES prochlorperazine Allergy Intermediate STROKE Verified 09/07/20 10:43 LIKE SYMPTOMS, CAN'T TALK linezolid AdvReac Intermediate diarrhea,vo Verified 09/07/20 10:43 miting tramadol AdvReac Intermediate UNSTEADY Verified 09/07/20 10:43 ON FEET, HYPERACTIVITY morphine AdvReac Unknown NOT Verified 09/07/20 10:43 EFFECTIVE Consultations 09/07/20 11:40 ED Decision to Admit Stat 09/08/20 11:02 Consult Cardiology Routine Ordered Studies 09/07/20 08:44 CT abd pelvis wo con Stat CT head/brain wo con Stat 09/09/20 MR lumbar spine wo con Urgent 09/10/20 11:05 MR thoracic spine wo/w con Routine Hospital Course (1) Back pain: 75 yo F with PMH of CHF, CKD 3, fibromyalgia, HTN, GERD, DVT, DM2, Galeas's palsy, CVA, DJD admitted to hospital for R sided back/flank pain from 09/07 to 09/13. Patient's presenting symptoms included sudden R-sided lower back pain and R flank pain limiting ambulation, no bowel/bladder incontinence or sensory/motor deficits. Back pain most likely due to combination of degenerative changes in spine given MRI findings and demand ischemia 2/2 cardiovascular disease- thoracolumbar radiculopathy with paraspinal muscle spasm as well. -MRI of lumbar spine 09/09- T11-T12 degenerative changes, L4-L5 demonstrating R > L moderate foraminal stenosis with possible impingement of L4 nerve root. -MRI thoracic spine- degenerative changes in T8-T9, T11-T12, facet arthrosis -Patient's pain did not respond well to any PRN medication other than home Dilaudid. Started on Gabapentin 100 mg TID due to concern for neuropathic contribution to pain. Patient would likely benefit from adjustment of pain medication regimen to avoid chronic Dilaudid use though no significant adjustments were trialed during this admission. To be addressed with PCP, discharged home with Voltaren gel for back pain -Patient given information about local chiropractic providers who could perform spinal decompression therapy as outpatient as this would likely be the best tool for symptom relief. (2) Elevated troponin: Patient did not experience any chest pain or dyspnea, non-concerning EKGs. Cardiology consult with echo revealed suspicion for demand ischemia, pt's home metoprolol was continued and serial troponins downtrended to 0.171 as of 09/10. Elevated troponin was attributed to pt's existent cardiovascular disease worsening due to questionable adherence to medication regimen. (3) Galeas's palsy: Patient presented with right sided Galeas's palsy, history of L-sided Galeas's palsy 7 months ago. Treated with Valcyte 1000 mg TID, prednisone tapered from 40 mg to 10 mg. -Lyme serology was negative (4) HTN (hypertension): -Continued home lisinopril, amlodipine and metoprolol. Some elevations in BPs during stay were attributed to prednisone side effect. (5) Diabetes: -Managed with Lantus 7u BID and Novolog, ISS -HbA1C 10.6% -Pt counseled about dietary/lifestyle modifications that improve glycemic control due to incidents of elevated blood sugars (up to 360s) attributed to consumption of sugary snacks during hospital stay. (6) CHF (congestive heart failure): Patient did not experience dyspnea or swelling, no evidence of fluid overload during stay, last echo from August 2015 with normal LV size and function with mild LVH, EF of 55-60%. -Continued Lisinopril and Metoprolol (7) Anemia: Stable H/H at 15.2/44.2. No active bleeding and did not require any blood transfusions. (8) Asthma: Chronic. Stable, no respiratory distress during this admission. Total Time Total Time Spent Total Time Spent (In Minutes): 30 Discharge Plan Discharge Items Patient Disposition: Home - Self-Care Reason For Visit: BACK PAIN, ELEVATED TROPONIN Discharge Diagnosis: Radiculopathy Activity: Per Instructions section Non-emergency contact: Primary Care Provider Call non-emergency contact if: you have any medication questions, your symptoms worsen, your pain is not controlled, your pain is worsening and your pain is concerning for you Follow-up/Referrals: Radha Gonzalez CRNP [Primary Care Provider] - Diet: Carb Consistent or DM2, Heart Healthy and Low Sodium (2gm) Addtl Attending Provider Instructions: Back pain -As we discussed, your back pain appears to be from a pinched nerve in your lower thoracic region -- because that nerve provides sensation around the lower part of your abdomen, that is why you feel the pain radiate from the front around to the back -Fortunately it does not appear tight enough to need to think about any type of surgery. That still does not mean it cant hurt a lot Typically for a situation like this, things to free up the nerve can help a g ood bit, to that end we would recommend decompression therapy. Decompression therapy is basically a very focused traction type therapy that can often help alleviate this type of pain. It does not get better overnight, the sort of situations do take time. Additionally, because of the pinched nerve, there is a degree of surrounding muscle spasmhaving Dr. Shields ([facility]) work on that, as well as continuing to use the diclofenac gel 4 times a day, should help start to settle the muscle spasm pain as well. Please call the Chiropractor (Dr. Shields) at [phone] to schedule an appointment for decompression therapy. His office is on [address] in [place]. Uncontrolled diabetes -Remember, the main reason to care about controlling your sugar is that "high sugar clogs arteries"the higher your sugars run, and the longer they run high, the more you are clogging up blood vessels you cannot get back. -As it relates to an "any given moment sugar" anytime you see sugar above about 150-160 you are doing some degree of damage, obviously higher is worse. Looking at it differently, an A1c is a good marker of what your sugars have been running over the last 3 months, and generally speaking an A1c above 7.0 would suggest that you are damaging blood vessels/clogging arteriesyet again higher is worse. Your current A1c is 10.6 -As we discussed, the main cause of type 2 diabetes relates back to her eating choices. For a large part of your life, people did not realize how much simple carbs (sugars/starches/potato/etc.) caused diabetes and metabolic issues, but now we have very good understanding of this. Do not let prior lack of knowledge drive your decisions for today. -A good way to see how food impacts your metabolism/clogs your arteries, as well as to learn very quickly how to "clean up" your diet is to check sugars about an hour or 2 after you eat. Typically then you will see very quickly/in real-time how the food affects you. This is where you would want to change foods to things that do not drive your sugar higher than 150-160. As you start to "play" with this you will start to see a dramatic difference between foods without much simple/starchy/sugary carbs (such as chicken and broccoli) versus foods that are loaded with simple carbs (such as cookies/cake/potatoes/crust/breads) -Even better, what you can start to see is that as you eat less of the simple/starchy/sugary carbs, you can actually "regressed" how diabetic you arethis is because the more you feel your body with simple carbs, the more insulin you pancreas has to make to get those carbohydrates out of your bloodstream and into your muscles, and the more "addicted" your muscles get to those high levels of insulin. -Again, the main reason to care about this is that "high sugars clog arteries"and while the most "famous" complications of type 2 diabetes are things like blindness, neuropathy, and kidney disease (because of high sugars clogging arteries in the back of her eyes, that fuel her nerves, and in her kidneys), the most common complications are heart attacks and strokes. A discharge summary will be sent to your primary care physician to ensure alvarez nuity of care. Please bring this discharge summary with you to your next office appointment so that your provider can review it at that time. Follow-up appointments: Make a follow-up appointment with your PCP within the next week. It is very important that you follow up with them shortly after discharge from the hospital.] Keep all your follow-up appointments as already scheduled. If you cannot make an appointment, notify your provider. Medications: Your medication list has been reviewed and reconciled upon discharge to ensure accuracy and continuity of care. An updated list of all your medications is included with your hospital discharge paperwork. Please review this list closely, and make note of any changes. Take your medications as instructed; do not skip a dose of your medicines. Make sure all of your doctors know every medicine you are taking (including opfm-tpn-yizxmnm medicines, vitamins, and supplements). Call your primary care provider before taking any new medicines (including pnrw-nnc-meczocc medicines, vitamins, and supplements), because some of these may interact with your current medications, or may make your symptoms worse. Tell your primary care provider if you cannot afford your medications. CONTACT YOUR PRIMARY CARE PROVIDER if you experience any of the following: Back pain Flank pain Difficulty walking Fever Chest pain Shortness of breath Fatigue Difficulty following your treatment plan, or difficulty taking medications CALL 911 OR GO TO THE EMERGENCY DEPARTMENT if you experience any of the following: Sudden, severe abdominal pain or nausea/vomiting Severe chest pain, or chest pain that radiates (moves) to your jaw or arm Sudden, severe shortness of breath or difficulty breathing Thank you for allowing us to participate in your care. Pending Studies at Discharge: No Stand-Alone Forms: [facility], Smoking Cessation Medications and DC Order Prescriptions: Continued furosemide 40 mg Tablet 0 mg PO QAM RF: 0 clonidine HCl 0.1 mg Tablet 0 mg PO BID RF: 0 metoprolol succinate 100 mg Tablet Extended Release 24 Hr 0 mg PO HS RF: 0 clopidogrel 75 mg Tablet 0 mg PO QAM RF: 0 amlodipine 5 mg Tablet 0 mg PO QAM RF: 0 aspirin [Aspirin Low Dose] 81 mg Tablet,Delayed Release (Dr/Ec) 81 mg PO QAM RF: 0 pantoprazole 40 mg Tablet,Delayed Release (Dr/Ec) 0 mg PO QAM RF: 0 ferrous sulfate 325 mg (65 mg iron) Tablet 0 mg PO QAM RF: 0 lisinopril 40 mg Tablet 0 mg PO QAM RF: 0 duloxetine 60 mg Capsule,Delayed Release(Dr/Ec) 60 mg PO QAM RF: 0 Janumet 50-1,000 mg Tablet 0 tab PO QPM RF: 0 potassium gluconate 595 mg (99 mg) Tablet 0 mg PO QAM RF: 0 gabapentin 600 mg tablet 0 mg PO TID RF: 0 Levemir FlexTouch U-100 Insuln 100 unit/mL (3 mL) insulin pen 0 unit SUBCUT QAM RF: 0 atorvastatin 40 mg Tablet 0 mg PO HS RF: 0 hydromorphone 4 mg tablet 4 mg PO 5XD PRN (Reason: Pain) RF: 0 melatonin 5 mg Tablet 0 mg PO HS RF: 0 magnesium oxide 500 mg capsule 0 mg PO QAM RF: 0 aspirin 325 mg Tablet 650 mg PO TID RF: 0 Changed diclofenac sodium 1 % gel 2 g topical BID PRN (Reason: pain) Qty: 100 RF: 2 Discharge Orders: Discharge Order (Routine); Ordered 09/13/20 Ordered By: Ioana Gutierrez Admission Data Admit Date/Time: 09/07/20 12:20 Attending Provider: Brian Zee Admit Provider: Lisa Baldwin Primary Care Provider: Radha Gonzalez Other Providers: Lisa Baldwin ; Michael Dela Cruz ; Param Santo Other Interventions: Discharge Summary Assessment (RN) Last Done: 09/13/20 12:11 Supervising Physician Co-Signing Physician Notes I personally examined the patient and verified all torres points of history and exam, discussed case, and agree with decision making with Dr Gutierrez. Doing better and feels up to going home. Back pain doing better. Reiterated plan. Reiterated diabetes education. Vitals noted, in general she is awake and alert pleasant no distress. HEENT normocephalic atraumatic mucous membranes moist. Breathing unlabored no accessory muscle use good effort. Skin shows no rashes no pallor or icterus. Neuro with no new focal deficitsongoing facial droop consistent with Galeas's palsy. Back painseems to be paraspinal spasm as well as a lower thoracic radiculopathy. Continue topical diclofenac, finished a course of corticosteroidsgiven her clinical improvement I would not continue steroids given that the hyperglycemia would probably be more risk than ongoing benefit with her improvement in pain, anticipate decompression therapy after discharge. Uncontrolled type 2 diabeteson 09/11, tried to lay a foundation of "why to care" (high sugars clog arteries), and the critical role of lifestyle management in type 2 diabetes. Reiterated salient points of these discussions today, also written in discharge instructions. Stable for home Otherwise as above Resident Activity Tracking Resident Involvement: Resident Care Provided Care Provided: Adult Hospital Medicine
[2020-09-12] MEDS: ACETAMINOPHEN 500 MG TAB PO SCH ×3 (11:07→19:43)
[2020-09-12] MEDS: METOPROLOL SUCC 50MG EXT REL TAB PO SCH (11:08)
[2020-09-12] MEDS: LIDOCAINE 5% 1 PATCH TD SCH (11:10)
[2020-09-12] MEDS: predniSONE 20 MG TAB PO SCH (11:14)
[2020-09-12] MEDS: INSULIN HUMAN NPH SC SCH (11:14)
[2020-09-12] MEDS: amLODIPine BESYLATE 5 MG TAB PO SCH (11:14)
[2020-09-12] MEDS: DICLOFENAC SOD 1% GEL 100 GM TUBE EXT SCH ×4 (11:14→19:46)
[2020-09-12] MEDS: ASPIRIN 81 MG ECTAB PO SCH (11:14)
[2020-09-12] MEDS: GABAPENTIN 100 MG CAP PO SCH ×3 (11:15→19:43)
[2020-09-12] MEDS: valACYclovir HCL 500 MG TABLET PO SCH ×3 (11:15→19:42)
[2020-09-12] MEDS: lisinopril 40 MG TAB PO SCH (11:15)
[2020-09-12] MEDS: INSULIN ASPART 100 UNITS/ML 3 ML PEN SC SCH ×3 (14:04→20:17)
[2020-09-12] MEDS ORDERED: KETOROLAC TROMETHAMINE 15 MG/ML VIAL IV ONE (16:00)
[2020-09-12] MEDS: ENOXAPARIN INJ 30 MG/0.3 ML SYR SQ SCH (16:59)
--- NOTE | 2020-09-12 17:46 | Hospitalist Progress Note ---
Date of Service September 12, 2020 Assessment & Plan (1) Back pain: Plan: Patient's presenting symptoms included sudden R-sided lower back pain and R flank pain limiting ambulation, no bowel/bladder incontinence or sensory/motor deficits. Back pain most likely due to combination of degenerative changes in spine given MRI findings and demand ischemia 2/2 cardiovascular disease- thoracolumbar radiculopathy with paraspinal muscle spasm as well. -MRI of lumbar spine 09/09- T11-T12 degenerative changes, L4-L5 demonstrating R > L moderate foraminal stenosis with possible impingement of L4 nerve root. -MRI thoracic spine- degenerative changes in T8-T9, T11-T12, facet arthrosis -Patient's pain did not respond well to any PRN medication other than home Dilaudid. Started on Gabapentin 100 mg TID due to concern for neuropathic contribution to pain. Patient would likely benefit from adjustment of pain medication regimen to avoid chronic Dilaudid use though no significant adjustments were trialed during this admission. -Patient given information about local chiropractic providers who could perform spinal decompression therapy as outpatient as this would likely be the best tool for symptom relief. -Pt's drowsiness likely due to pain vs sedating effect from opioid pain medication. Generalized pain today possibly due to fibromyalgia flare, treated with IV Toradol 30 mg, responded well. Ambulating without difficulty following pain relief but states she would feel safer with discharge tomorrow (2) Elevated troponin: Plan: No chest pain or dyspnea, non-concerning EKGs. Cardiology consult with echo revealed suspicion for demand ischemia Serial troponins downtrended to 0.171 as of 09/10 Elevated troponin likely caused by pt's existent cardiovascular disease worsening due to questionable adherence to medication regimen (3) Galeas's palsy: Plan: Patient presented with right sided Galeas's palsy, history of L-sided Galeas's palsy 7 months ago -Valcyte 1000 mg TID -Pednisone 40 mg with goal to taper to 10 mg as outpatient, currently 30 mg daily. -Lyme serology was negative (4) HTN (hypertension): Plan: -Continue home lisinopril, amlodipine and metoprolol. Some elevated BPs likely due to prednisone side effect. (5) Diabetes: Plan: -Lantus 7u BID and Novolog, ISS -HbA1C 10.6% -8/3- Pt counseled about dietary/lifestyle modifications that improve glycemic control due to incidents of elevated blood sugars (up to 360s) attributed to consumption of sugary snacks during hospital stay (6) CHF (congestive heart failure): Plan: Patient not experiencing any dyspnea or swelling, no evidence of fluid overload last echo from August 2015 with normal LV size and function with mild LVH, EF of 55-60%. -Continue Lisinopril and Metoprolol (7) Anemia: Plan: Stable H/H at 15.2/44.2. No active bleeding (8) Asthma: Plan: Chronic. Stable, no respiratory distress during this admission. Admission and Anticipated Discharge Date Admission Date: September 07, 2020 Supervising Physician Co-Signing Physician Notes I personally examined the patient and verified all torres points of history and exam, discussed case, and agree with decision making with Dr Gutierrez. Very tired all day. Initially very difficult to obtain history fromnot because of confusion, but because of fatigue making her want to answer questions broadly, simply, and with one-word. With directed questioning, she notes that she hurts all overstill has the back pain, but also hurts everywhere elsewhen asked to specify, she then notes her mouth and jaw, shoulders, and back. On directed questioning, she does recall may be having been given a diagnosis of fibromyalgia at some point. Vitals noted, very fatigued, but alert and oriented. Appears tired and somewhat uncomfortable. HEENT normocephalic atraumatic mucous membranes are moist, she is missing most of her teeth and shows no facial erythema or caries with exudate. She is very tender to palpation all around her jaw/gum line externally. There is no crepitus. She is also tender over her TMJs bilaterally right probably slightly worse than left. Left greater than right shoulder tenderness in the region of supraspinatus, of note she does have a lidocaine patch on her right shoulder. No erythema, no crepitus, no fluctuance. Abdomen soft but mild to moderate diffuse tenderness without any guarding/rebound/rigidity. She has ongoing left facial droop consistent with Galeas's palsy, but no other new/focal neuro deficits. Back painseems to be paraspinal spasm as well as a lower thoracic radiculopathy. Continue topical diclofenac, continue corticosteroids, anticipate decompression therapy after discharge. Uncontrolled type 2 diabeteson 8/2, tried to lay a foundation of "why to care" (high sugars clog arteries), and the critical role of lifestyle management in type 2 diabetes. Was anticipating continuing these discussions today, but with her feeling much worse, did not seem appropriate at this time. Fatigue and diffuse painshe does not appear to have any worrisome process at play, but she definitely appears very symptomatic. Given her chronic pain, and the acute pain all over, combined with fatigue, along with palpable tenderness without any clearly notable structural lesions, I suspect fibromyalgia/flareup of pain of this type. Discussed with patient. Trial of Toradol, encouraged ambulation. Otherwise as above Subjective Pt drowsy but conversant. Reporting back pain and also generalized pain/discomfort. States she's tired and would prefer to sleep. Review of Systems Review of Systems: All systems reviewed & are unremarkable except as noted in Subjective Musculoskeletal: +R sided lower back pain, +R flank pain Neurologic: +Sleepy, lethargic Physical Exam Physical Exam: General: patient drowsy, sleeping Skin: warm, dry, intact, no rashes or lesions HEENT: +right facial droop involving forehead and eyebrow PERRL, EOMI, anicteric sclera, conjunctiva without injection, moist mucus membranes, neck supple, trachea midline, no JVD Heart: +S1/S2, regular rate, low grade systolic murmur appreciated over left upper sternal border Lungs: equal air entry bilaterally, no rales/rhonchi/wheezes Abd: R flank tenderness to palpation, soft, nondistended. no masses/organomegaly/ascites Back: pain with palpation of right lumbar and paraspinous muscles, R SI joint Ext: warm, no clubbing/cyanosis or edema Neuro: AOx3, R facial muscle weakness, sensation intact b/l UE and LE, 5/5 strength in b/l UE and LE, unable to elicit DTRs Results & Data Results & Data ([facility]) Vital Signs (Past 12 Hours) Vital Signs Temp Pulse Pulse Resp BP Pulse Ox 09/12/20 15:02 66 09/12/20 14:35 36.7 C 61 20 121/68 95 09/12/20 11:14 37.0 C 57 L 20 122/71 99 09/12/20 08:14 36.5 C 58 L 20 113/69 98 08/03/21 07:14 56 L Resident Activity Tracking Resident Involvement: Resident Care Provided Care Provided: Adult Hospital Medicine (1) HTN (hypertension) Hypertension type: essential hypertension Qualified Code(s): I10 - Essential (primary) hypertension
--- NOTE | 2020-09-12 17:58 | Billing Data ---
Date of Service September 12, 2020 Coding Level of Care Code 61962 Subseq Hosp Care Lvl 3
[2020-09-12] MEDS: ATORVASTATIN 40 MG TAB PO SCH (19:43)
[2020-09-13] MEDS: HYDROmorphone HCL 2 MG TAB PO PRN ×2 (08:49→14:51)
[2020-09-13] MEDS: ACETAMINOPHEN 500 MG TAB PO SCH ×2 (08:50→14:45)
[2020-09-13] MEDS: INSULIN ASPART 100 UNITS/ML 3 ML PEN SC SCH ×3 (08:51→17:04)
[2020-09-13] MEDS ORDERED: predniSONE 10 MG TABLET PO SCH (09:00)
[2020-09-13] MEDS ORDERED: INSULIN GLARGINE SOLOSTAR 100 UNITS/ML 3 ML PEN SC SCH (09:00)
[2020-09-13] MEDS ORDERED: INSULIN HUMAN NPH SC SCH ×2 (09:00)
[2020-09-13] MEDS: DICLOFENAC SOD 1% GEL 100 GM TUBE EXT SCH ×3 (09:00→17:03)
[2020-09-13] MEDS: amLODIPine BESYLATE 5 MG TAB PO SCH (09:00)
[2020-09-13] MEDS: ASPIRIN 81 MG ECTAB PO SCH (09:00)
[2020-09-13] MEDS: lisinopril 40 MG TAB PO SCH (09:01)
[2020-09-13] MEDS: GABAPENTIN 100 MG CAP PO SCH ×2 (09:01→14:45)
[2020-09-13] MEDS: LIDOCAINE 5% 1 PATCH TD SCH (09:01)
[2020-09-13] MEDS: METOPROLOL SUCC 50MG EXT REL TAB PO SCH (09:01)
[2020-09-13] MEDS: valACYclovir HCL 500 MG TABLET PO SCH ×2 (09:01→14:45)
--- NOTE | 2020-09-13 10:10 | Pharmacy Report ---
Pharmacy Glycemic Short Note 2 - Date of Service September 13, 2020 - Glycemic Short BSG Results (Last 24 hours): 09/12/20 09/12/20 09/12/20 11:26 16:37 20:02 POC Glucose 81 154 H 335 H* 09/12/20 09/13/20 20:03 07:29 POC Glucose 355 H* 76 OUTPATIENT ANTIDIABETIC REGIMEN: * Hx of Levemir and Janumet * Poor compliance noted * HbA1c: 10.6% (09/08/20) ASSESSMENT: 09/13: * Genie received a total of 55 units of insulin yesterday * 35 units basal (15 units Lantus + 20 units NPH) and 20 units bolus * BSGs were: 43-24-380-355 mg/dL * Insulin requirements continue to trend downward as expected with tapering steroid doses * Fasting BSG this AM was 76 mg/dL * Will decrease Lantus today rather than NPH as Lantus is more likely effecting the fasting BSG. NPH dose remains the same which should help with postprandial hyperglycemia seen throughout the day. * Pending lunch BSG, carb ratio may need tightened as well 09/11: * Patient received total of 122 units of insulin yesterday, of which 40 units were NPH and 15 units were Lantus * Patient snacking evening/overnight last night - BSGs in 300-400s. Per RN patient eating a lot of sweets (ice tea, cookies, cake etc). Education provided to patient about monitoring diet. Provider contacted this morning regarding increased monitoring. * Fasting BSG 111 mg/dL - plan to continue same basal insulin for now. Hard to assess as overnight eating/snacking. * Prednisone dosing decreased this AM by 50% - plan to decrease NPH by 50% from day prior. Loosened CR as well to account for decrease in steroid PLAN FOR INPATIENT GLYCEMIC CONTROL: * Basal insulin - decreased Lantus * Lantus 10 units SC daily * NPH 20 units SC daily * Bolus insulin - no change * NovoLog per scale ACHS or Q6hrs while NPO * Goal Range: Low 110 mg/dL - High 140 mg/dL * Correction Factor: 20 mg/dL/unit * Nutritional / Prandial insulin per carb ratio of 1 unit per 8 grams CHO consumed PLAN FOR DISCHARGE: * HbA1c of 10.6% is significantly above goal of less than 7-8% * Given history of non-compliance, should prioritize simplicity in regimen * Recommend starting Metformin XR 500 mg PO with evening meal * Typically the XR formulation of metformin is better tolerated than the immediate release formulation. Continue to titrate metformin dosing upwards as recommended. Dosage increases should be made in increments of 500 mg weekly, up to 2,000 mg/day PO, given in divided doses. Doses above 2000 mg/day may be better tolerated if divided and given 3 times per day with meals. Max: 2,550 mg/day PO, in divided doses. * B12 supplementation may be necessary with shelter metformin * Recommend starting once daily Lantus upon discharge. *Dose to be determined* * Could consider starting a once weekly GLP-1 RA as well (i.e. Ozempic, Trulicity) * Support Patient Self-Management * Healthy Lifestyle (diet, exercise, and smoking cessation) * Disease self-management (SMBG) * Prevention of complications (BP, Lipid goals, Immunizations) * Consider outpatient Diabetes Self-Management Education & Support
[2020-09-13] MEDS: ENOXAPARIN INJ 30 MG/0.3 ML SYR SQ SCH (17:01)
--- NOTE | 2020-09-13 20:44 | Billing Data ---
Date of Service September 13, 2020 Coding Level of Care Code D/C DAY MANAGEMENT <30 MINS
== END 2020-09-13 17:39 | disposition home or self-care (01) | DRG 552 ==
LOC: ED 08:24 → 2N 12:20 → SUATTDRO 12:20 → 2N 14:31

== ENCOUNTER 2020-11-03 14:44 | Observation (INO) ==
[2020-11-03] MEDS ORDERED: SODIUM CHLORIDE 0.9% 500 ML IV ONE (15:22)
[2020-11-03] MEDS ORDERED: HYDROmorphone HCL 2 MG TAB PO STA (15:29)
[2020-11-03] MEDS ORDERED: ACETAMINOPHEN 1,000 MG/100 ML VIAL IV STA (15:29)
--- NOTE | 2020-11-03 15:34 | Emergency Department Note ---
Impression & Plan Rhabdomyolysis, Fall from standing, Ambulatory dysfunction, Chronic pain ED Provider Note NAME: VIGNESH STAFFORD AGE: 75 SEX: F ARRIVES VIA: Ambulance INFORMANT: Patient, ED PROVIDER(S): Adolfo Sethi MD CHIEF COMPLAINT: Fall, unknown downtime. PLAN: Disposition: Admit MEDICAL DECISION MAKING: The patient is a pleasant 75-year-old woman with a past medical history of chronic pain on oral Dilaudid at home, CHF, diabetes, hypertension, history of Galeas's palsy presents to the emergency department for evaluation after she was found down by her caregiver at home at 2 PM. The patient spoke to her son over the phone this morning and so downtime is limited to this period of time at most. She is unsure of how she fell but report was that she had spilled Sprite all over herself in the floor and also urinated herself when lying on the ground. She has pain in her left shoulder that is worse than her normal chronic pain as well as the left hip and bilateral knees, feet and toes. Otherwise she has generalized pain throughout which is her baseline. On arrival the patient is in no acute distress, afebrile stable vital signs. She appears clinically dry. She is minor contusion to the left shoulder with tenderness to palpation and limited range of motion. She has mild tenderness to the toes of her feet bilaterally which are bluish in color which she reports happens intermittently (improved color after IVF and warm blanket). Palpable PT pulses bilaterally. She has minor contusions to bilateral knees. She has increased pain with active flexion of her left hip with mild tenderness to palpation. There is no overt deformity or shortening. He has no midline CTL spine tenderness to palpation or step-offs. She has residual right facial Galeas's palsy. Otherwise she has no focal neurologic deficits. EKG demonstrates ST abnormality similar to prior and otherwise no overt acute ischemia. Chest x-ray negative for acute cardiopulmonary process. WBC 13.4K nonspecific. H/H 16/46.9 likely a component of hemoconcentration c onsistent with the patient's clinically dry appearance. Platelets within normal months. Electrolytes and LFTs without significant abnormality. BUN/Cr>20 consistent with patient's clinical dry appearance. Glucose 371 without metabolic aciddosis. LFTs without significant abnormality. CPK is mild ly elevated at 1300 and consistent with report of prolonged but unknown downtime. TSH within normal limits. COVID-19 PCR was negative. Extensive imaging performed given the patient's numerous pain complaints complicated by her chronic pain and plain films of the left hip and pelvis, left shoulder bilateral knees and feet negative for fracture dislocation. CT imaging of the head, C-spine, chest and abdomen pelvis negative for acute process. Upon reevaluation the patient did feel somewhat improved after IV fluid hydration and her home oral Dilaudid. Given mild rhabdo in this elderly patient with baseline ambulatory dysfunction reasonable to admit the patient for further management. She is in agreement with this. Triage Nursing notes reviewed and agree them. Prior medical records reviewed Vital Signs: reviewed and remarkable for no significant abnormalities Differential diagnosis: Fracture, dislocation, contusion, intra-abdominal, pneumothorax, intrathoracic, intracranial, neurologic, compartment syndrome, rhabdomyolysis, as well as other pathologies. ER treatment provided: See below. Diagnostics interpreted by me: ECG: Normal sinus rhythm, 85 bpm, no ectopy, ST abnormality similar to prior. Otherwise no new ST elevation. TC 464, QRS 90. Cardiac Monitoring: An order for continuous cardiac monitoring was placed and demonstrated normal sinus rhythm, 85 bpm, no ectopy. Laboratory studies: See below Imaging studies: See below Consultation(s): Case was discussed with Dr. Garza, [facility] hospitalist, who will evaluate the patient for admission. HPI: The patient is a pleasant 75-year-old woman with a past medical history of chronic pain on oral Dilaudid at home, CHF, diabetes, hypertension, history of Galeas's palsy presents to the emergency department for evaluation after she was found down by her caregiver at home at 2 PM. The patient spoke to her son over the phone this morning and so downtime is limited to this period of time at most. She is unsure of how she fell but report was that she had spilled Sprite all over herself in the floor and also urinated herself when lying on the ground. She has pain in her left shoulder that is worse than her normal chronic pain as well as the left hip and bilateral knees, feet and toes. Otherwise she has generalized pain throughout which is her baseline. ROS: See above HPI for pertinent positives & negatives. A total of 10 systems reviewed and were otherwise negative. PAST MEDICAL HISTORY:See Below PAST SURGICAL HISTORY:See Below FAMILY HISTORY:See Below SOCIAL HISTORY:See Below HOME MEDICATIONS:See Below ALLERGIES:See Below VITALS:See Below PHYSICAL EXAMINATION: GENERAL: Awake, alert, uncomfortable-appearing, in no distress HENT: Normocephalic, atraumatic. Oropharynx with dry mucous membranes and otherwise unremarkable. EYES: Normal conjunctiva. Sclera non-icteric. NECK: Supple. No nuchal rigidity. FROM. No JVD. RESPIRATORY: Clear to auscultation. CARDIAC: Regular rate, normal rhythm. Extremities warm and well perfused. Pulses equal. ABDOMEN: Soft, non-distended. No tenderness to palpation. No rebound or guarding. No masses. RECTAL: Deferred. MUSCULOSKELETAL: Chest examination reveals no tenderness. The back is symmetrical on inspection without obvious abnormality. Generalized discomfort throughout back without discrete tenderness or bony crepitus. Minor contusion to the left shoulder with tenderness to palpation and limited range of motion. She has mild tenderness to the toes of her feet bilaterally which are bluish in color which she reports happens intermittently (improved color after IVF and warmed with blanket). She has minor contusions to bilateral knees. She has increased pain with active flexion of her left hip with mild tenderness to palpation. There is no overt deformity or shortening. He has no midline CTL spine tenderness to palpation or step-offs. LOWER EXTREMITIES: Calves are equal size bilaterally and non-tender. No edema. No discoloration. NEURO: Right-sided Galeas's palsy persists. No focal extremity weakness. No aphasia. SKIN: No rash or jaundice noted. Adolfo Sethi MD Past Med/Surg History Medical History Anemia Asthma CHF (congestive heart failure) Chronic back pain (06/14/12) Cirrhosis Noted on CT scan 09/08/2020 Confusion Dehydration Diabetes DVT (deep venous thrombosis) Fall Gout HTN (hypertension) Hypomagnesemia Intracranial hemorrhage (03/04/14) Recurrent falls (10/04/12) Rheumatoid arthritis (08/12/12) Sleep apnea (04/27/12) Subdural hematoma Weakness Surgical History H/O shoulder surgery History of hysterectomy Hx of appendectomy S/P cholecystectomy S/P IVC filter Family History Other Hypertension Seizures Social History Smoking Status: Unknown if ever smoked Hx Alcohol Use: No Hx Substance Use: No Preferred Language: [place] Communication Ability: Effective Visual Impairment: No Limitations 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: Normal Granulator Tender Required: No Beliefs That Will Affect Care: None marital status: / Current Living Situation: Alone Current Living Situation Comment: Condo Feels Safe at Home: Yes Assistive Devices: Glasses Allergies Allergies Allergy/AdvReac Type Severity Reaction Status Date / Time Cephalosporins Allergy Intermediate RINGING OF Verified 11/03/20 16:37 EARS,FALLING BALANCE ISSUES prochlorperazine Allergy Intermediate STROKE Verified 11/03/20 16:37 LIKE SYMPTOMS, CAN'T TALK linezolid AdvReac Intermediate diarrhea,vo Verified 11/03/20 16:37 miting tramadol AdvReac Intermediate UNSTEADY Verified 11/03/20 16:37 ON FEET, HYPERACTIVITY morphine AdvReac Unknown NOT Verified 11/03/20 16:37 EFFECTIVE Home Meds Home Medications Medication Instructions Recorded Confirmed amlodipine 5 mg tablet 5 mg PO [facility] 10/21/17 11/03/20 aspirin 81 mg tablet,delayed 81 mg PO [facility] 10/21/17 11/03/20 release (Aspirin Low Dose) clonidine HCl 0.1 mg tablet 0.1 mg PO BID 10/21/17 11/03/20 clopidogrel 75 mg tablet 75 mg PO [facility] 10/21/17 11/03/20 duloxetine 60 mg capsule,delayed 60 mg PO [facility] 10/21/17 11/03/20 release ferrous sulfate 325 mg (65 mg 325 mg PO [facility] 10/21/17 11/03/20 iron) tablet furosemide 40 mg tablet 40 mg PO [facility] 10/21/17 11/03/20 lisinopril 40 mg tablet 40 mg PO [facility] 10/21/17 11/03/20 metoprolol succinate 100 mg 100 mg PO 10/21/17 11/03/20 tablet,extended release 24 hr pantoprazole 40 mg tablet,delayed 40 mg PO [facility] 10/21/17 11/03/20 release potassium gluconate 595 mg (99 mg) 595 mg PO [facility] 10/21/17 11/03/20 tablet melatonin 5 mg tablet 5 mg PO 12/13/17 11/03/20 gabapentin 600 mg tablet 600 mg PO TID 06/17/18 11/03/20 magnesium oxide 500 mg capsule 500 mg PO QAM 12/17/18 11/03/20 insulin detemir U-100 100 unit/mL 15 unit SUBCUT QAM 01/02/19 11/03/20 (3 mL) subcutaneous pen (Levemir FlexTouch U-100 Insulin) atorvastatin 40 mg tablet 40 mg PO HS 10/12/19 11/03/20 hydromorphone 4 mg tablet 4 mg PO 5XD PRN 12/26/19 11/03/20 aspirin 325 mg tablet 650 mg PO TID 09/07/20 11/03/20 Previous Rx's Medication Instructions Recorded diclofenac sodium 1 % topical gel 2 g TOPICAL BID PRN #100 g 09/13/20 Results & Data (ED) Vital Signs Vital Signs - 24 hr 11/03/20 15:00 11/03/20 15:31 11/03/20 15:57 Temperature 36.6 C Temperature Source Oral Pulse Rate 97 H 92 H Pulse Rate from SpO2 Sensor Pulse Rhythm Regular Respiratory Rate 18 20 Blood Pressure 205/111 H 166/138 H Blood Pressure Mean 142 147 Pulse Oximetry 93 93 Oxygen Delivery Method Room Air Room Air Sepsis Recent Fever Within 48 Hours No Sepsis New/Unexplained Change in Mental Status No Sepsis Action Taken by Nursing No Action Required 11/03/20 16:00 11/03/20 16:31 11/03/20 17:00 Temperature Temperature Source Pulse Rate 93 H 93 H 84 Pulse Rate from SpO2 Sensor Pulse Rhythm Respiratory Rate 20 19 14 Blood Pressure 192/106 H 173/110 H 156/78 H Blood Pressure Mean 134 131 104 Pulse Oximetry Oxygen Delivery Method Sepsis Recent Fever Within 48 Hours Sepsis New/Unexplained Change in Mental Status Sepsis Action Taken by Nursing 11/03/20 17:30 11/03/20 18:01 11/03/20 18:30 Temperature Temperature Source Pulse Rate 85 90 91 H Pulse Rate from SpO2 Sensor Pulse Rhythm Respiratory Rate 18 16 15 Blood Pressure 153/71 H Blood Pressure Mean 98 Pulse Oximetry 95 95 Oxygen Delivery Method Sepsis Recent Fever Within 48 Hours Sepsis New/Unexplained Change in Mental Status Sepsis Action Taken by Nursing 11/03/20 19:52 11/03/20 20:01 11/03/20 20:02 Temperature Temperature Source Pulse Rate 96 H 90 90 Pulse Rate from SpO2 Sensor Pulse Rhythm Respiratory Rate 18 13 13 Blood Pressure 146/89 H Blood Pressure Mean 108 Pulse Oximetry 95 Oxygen Delivery Method Sepsis Recent Fever Within 48 Hours Sepsis New/Unexplained Change in Mental Status Sepsis Action Taken by Nursing 11/03/20 20:03 11/03/20 20:04 11/03/20 20:05 Temperature Temperature Source Pulse Rate 92 H 91 H 91 H Pulse Rate from SpO2 Sensor 93 H 91 H 92 H Pulse Rhythm Respiratory Rate 18 16 17 Blood Pressure Blood Pressure Mean Pulse Oximetry 95 95 95 Oxygen Delivery Method Sepsis Recent Fever Within 48 Hours Sepsis New/Unexplained Change in Mental Status Sepsis Action Taken by Nursing 11/03/20 20:06 11/03/20 20:07 11/03/20 20:08 Temperature Temperature Source Pulse Rate 91 H 92 H 91 H Pulse Rate from SpO2 Sensor 91 H 92 H 92 H Pulse Rhythm Respiratory Rate 16 18 19 Blood Pressure Blood Pressure Mean Pulse Oximetry 94 95 94 Oxygen Delivery Method Sepsis Recent Fever Within 48 Hours Sepsis New/Unexplained Change in Mental Status Sepsis Action Taken by Nursing 11/03/20 20:09 11/03/20 20:10 11/03/20 20:11 Temperature Temperature Source Pulse Rate 92 H 92 H 93 H Pulse Rate from SpO2 Sensor 92 H 95 H 92 H Pulse Rhythm Respiratory Rate 15 18 19 Blood Pressure Blood Pressure Mean Pulse Oximetry 94 96 97 Oxygen Delivery Method Sepsis Recent Fever Within 48 Hours Sepsis New/Unexplained Change in Mental Status Sepsis Action Taken by Nursing 11/03/20 20:12 11/03/20 20:13 11/03/20 20:14 Temperature Temperature Source Pulse Rate 93 H 92 H 92 H Pulse Rate from SpO2 Sensor 94 H 93 H 92 H Pulse Rhythm Respiratory Rate 13 18 22 Blood Pressure Blood Pressure Mean Pulse Oximetry 96 97 99 Oxygen Delivery Method Sepsis Recent Fever Within 48 Hours Sepsis New/Unexplained Change in Mental Status Sepsis Action Taken by Nursing 11/03/20 20:15 11/03/20 20:16 11/03/20 20:17 Temperature Temperature Source Pulse Rate 92 H 95 H 92 H Pulse Rate from SpO2 Sensor 91 H 91 H 90 Pulse Rhythm Respiratory Rate 22 16 26 H Blood Pressure Blood Pressure Mean Pulse Oximetry 97 91 96 Oxygen Delivery Method Sepsis Recent Fever Within 48 Hours Sepsis New/Unexplained Change in Mental Status Sepsis Action Taken by Nursing 11/03/20 20:18 11/03/20 20:19 11/03/20 20:24 Temperature Temperature Source Pulse Rate 96 H 94 H 93 H Pulse Rate from SpO2 Sensor 90 95 H Pulse Rhythm Respiratory Rate 17 26 H 18 Blood Pressure 195/94 H Blood Pressure Mean 82 127 Pulse Oximetry 85 L 84 L 97 Oxygen Delivery Method Sepsis Recent Fever Within 48 Hours Sepsis New/Unexplained Change in Mental Status Sepsis Action Taken by Nursing 11/03/20 20:30 11/03/20 21:02 Temperature Temperature Source Pulse Rate 92 H 93 H Pulse Rate from SpO2 Sensor 91 H 93 H Pulse Rhythm Respiratory Rate 15 18 Blood Pressure 161/76 H Blood Pressure Mean 104 Pulse Oximetry 97 96 Oxygen Delivery Method Sepsis Recent Fever Within 48 Hours Sepsis New/Unexplained Change in Mental Status Sepsis Action Taken by Nursing Laboratory Data Attestation: I reviewed the patient's lab results. Result diagrams: 11/03/20 15:50 11/03/20 15:50 Lab Results 11/03/20 11/03/20 11/03/20 Range/Units 15:50 15:50 15:50 WBC 13.47 H (4.8-10.8) K/uL RBC 5.06 (4.2-5.4) M/uL Hgb 16.1 H (12.0-16.0) g/dL Hct 46.9 (37-47) % MCV 92.7 (80-100) fL MCH 31.8 (25-34) pg MCHC 34.3 (32-36) g/dL RDW Std Deviation 44.2 (36.4-46.3) fL RDW Coeff of [place] 13.0 (11.5-14.5) % Plt Count 249 (130-400) K/uL MPV 11.9 H (7.4-10.4) fL Immature Gran % (Auto) 0.2 % Neut % (Auto) 84.8 % Lymph % (Auto) 9.6 % [place] % (Auto) 5.0 % Eos % (Auto) 0.3 % Baso % (Auto) 0.1 % Neut # (Auto) 11.42 H (1.4-6.5) K/uL Lymph # (Auto) 1.29 (1.2-3.4) K/uL [place] # (Auto) 0.68 H (0.11-0.59) K/uL Eos # (Auto) 0.04 (0-0.5) K/uL Baso # (Auto) 0.01 (0-0.2) K/uL Immature Gran # (Auto) 0.03 H (0.00-0.02) K/uL PT 10.1 (9.0-12.0) Seconds INR 1.0 (0.9-1.1) APTT 26.9 (21.0-31.0) Seconds PTT Ratio 1.0 Sodium 134 L (136-145) mmol/L Potassium 4.1 (3.5-5.1) mmol/L Chloride 97 L (98-107) mmol/L Carbon Dioxide 29 (21-32) mmol/L Anion Gap 8.0 (3-11) BUN 22 H (7-18) mg/dl Creatinine 1.10 (0.6-1.2) mg/dl Est Cr Clr Drug Dosing 40.7 ml/min Est GFR ( Amer) 56.5 ml/min Est GFR (Non-Af Amer) 48.7 ml/min BUN/Creatinine Ratio 20.4 H (10-20) Glucose 371 H* (70-99) mg/dl POC Glucose (70-99) mg/dl Calcium 9.7 (8.5-10.1) mg/dl Phosphorus 3.4 (2.5-4.9) mg/dl Magnesium 2.3 (1.8-2.4) mg/dl Total Bilirubin 1.0 (0.2-1) mg/dl Direct Bilirubin 0.2 (0-0.2) mg/dl AST 51 H (15-37) U/L ALT 24 (12-78) U/L Alkaline Phosphatase 191 H (45-117) U/L Total Creatine Kinase 1388 H (26-192) U/L Troponin I < 0.015 (0-0.045) ng/ml Total Protein 8.4 H (6.4-8.2) gm/dl Albumin 4.0 (3.4-5.0) gm/dl Globulin 4.4 H (2.5-4.0) gm/dl Albumin/Globulin Ratio 0.9 (0.9-2) Lipase 73 (73-393) U/L Beta-Hydroxybutyric Acd 6.92 H (0.2-2.81) mg/dl TSH 1.730 (0.300-4.500) uIu/ml Urine Color Urine Appearance (Clear) Urine pH (4.5-7.5) Ur Specific [place] (1.000-1.030) Urine Protein (Negative) Urine Glucose (UA) (Negative) Urine Ketones (Negative) Urine Blood (Negative) Urine Nitrite (Negative) Urine Bilirubin (Negative) Urine Urobilinogen (Negative) Ur Leukocyte Esterase (Negative) Urine WBC (Auto) (0-5) /hpf Urine RBC (Auto) (0-4) /hpf U Hyaline Cast (Auto) (0-5) /lpf U Epithel Cells (Auto) (0-5) /lpf Urine Bacteria (Auto) (Negative) COVID-19 Eval Order SARS-CoV-2 (PCR) (Negative) 11/03/20 11/03/20 11/03/20 Range/Units 16:03 16:03 20:20 WBC (4.8-10.8) K/uL RBC (4.2-5.4) M/uL Hgb (12.0-16.0) g/dL Hct (37-47) % MCV (80-100) fL MCH (25-34) pg MCHC (32-36) g/dL RDW Std Deviation (36.4-46.3) fL RDW Coeff of [place] (11.5-14.5) % Plt Count (130-400) K/uL MPV (7.4-10.4) fL Immature Gran % (Auto) % Neut % (Auto) % Lymph % (Auto) % [place] % (Auto) % Eos % (Auto) % Baso % (Auto) % Neut # (Auto) (1.4-6.5) K/uL Lymph # (Auto) (1.2-3.4) K/uL [place] # (Auto) (0.11-0.59) K/uL Eos # (Auto) (0-0.5) K/uL Baso # (Auto) (0-0.2) K/uL Immature Gran # (Auto) (0.00-0.02) K/uL PT (9.0-12.0) Seconds INR (0.9-1.1) APTT (21.0-31.0) Seconds PTT Ratio Sodium (136-145) mmol/L Potassium (3.5-5.1) mmol/L Chloride (98-107) mmol/L Carbon Dioxide (21-32) mmol/L Anion Gap (3-11) BUN (7-18) mg/dl Creatinine (0.6-1.2) mg/dl Est Cr Clr Drug Dosing ml/min Est GFR ( Amer) ml/min Est GFR (Non-Af Amer) ml/min BUN/Creatinine Ratio (10-20) Glucose (70-99) mg/dl POC Glucose (70-99) mg/dl Calcium (8.5-10.1) mg/dl Phosphorus (2.5-4.9) mg/dl Magnesium (1.8-2.4) mg/dl Total Bilirubin (0.2-1) mg/dl Direct Bilirubin (0-0.2) mg/dl AST (15-37) U/L ALT (12-78) U/L Alkaline Phosphatase (45-117) U/L Total Creatine Kinase (26-192) U/L Troponin I (0-0.045) ng/ml Total Protein (6.4-8.2) gm/dl Albumin (3.4-5.0) gm/dl Globulin (2.5-4.0) gm/dl Albumin/Globulin Ratio (0.9-2) Lipase (73-393) U/L Beta-Hydroxybutyric Acd (0.2-2.81) mg/dl TSH (0.300-4.500) uIu/ml Urine Color Yellow Urine Appearance Clear (Clear) Urine pH 5.0 (4.5-7.5) Ur Specific [place] 1.030 (1.000-1.030) Urine Protein Trace H (Negative) Urine Glucose (UA) 3+ H (Negative) Urine Ketones Negative (Negative) Urine Blood Negative (Negative) Urine Nitrite Negative (Negative) Urine Bilirubin Negative (Negative) Urine Urobilinogen Negative (Negative) Ur Leukocyte Esterase Negative (Negative) Urine WBC (Auto) 0 (0-5) /hpf Urine RBC (Auto) 0-4 (0-4) /hpf U Hyaline Cast (Auto) 0 (0-5) /lpf U Epithel Cells (Auto) 0-5 (0-5) /lpf Urine Bacteria (Auto) Negative (Negative) COVID-19 Eval Order Covid19 at [facility] SARS-CoV-2 (PCR) NEGATIVE (Negative) 11/03/20 Range/Units 20:36 WBC (4.8-10.8) K/uL RBC (4.2-5.4) M/uL Hgb (12.0-16.0) g/dL Hct (37-47) % MCV (80-100) fL MCH (25-34) pg MCHC (32-36) g/dL RDW Std Deviation (36.4-46.3) fL RDW Coeff of [place] (11.5-14.5) % Plt Count (130-400) K/uL MPV (7.4-10.4) fL Immature Gran % (Auto) % Neut % (Auto) % Lymph % (Auto) % [place] % (Auto) % Eos % (Auto) % Baso % (Auto) % Neut # (Auto) (1.4-6.5) K/uL Lymph # (Auto) (1.2-3.4) K/uL [place] # (Auto) (0.11-0.59) K/uL Eos # (Auto) (0-0.5) K/uL Baso # (Auto) (0-0.2) K/uL Immature Gran # (Auto) (0.00-0.02) K/uL PT (9.0-12.0) Seconds INR (0.9-1.1) APTT (21.0-31.0) Seconds PTT Ratio Sodium (136-145) mmol/L Potassium (3.5-5.1) mmol/L Chloride (98-107) mmol/L Carbon Dioxide (21-32) mmol/L Anion Gap (3-11) BUN (7-18) mg/dl Creatinine (0.6-1.2) mg/dl Est Cr Clr Drug Dosing ml/min Est GFR ( Amer) ml/min Est GFR (Non-Af Amer) ml/min BUN/Creatinine Ratio (10-20) Glucose (70-99) mg/dl POC Glucose 303 H* (70-99) mg/dl Calcium (8.5-10.1) mg/dl Phosphorus (2.5-4.9) mg/dl Magnesium (1.8-2.4) mg/dl Total Bilirubin (0.2-1) mg/dl Direct Bilirubin (0-0.2) mg/dl AST (15-37) U/L ALT (12-78) U/L Alkaline Phosphatase (45-117) U/L Total Creatine Kinase (26-192) U/L Troponin I (0-0.045) ng/ml Total Protein (6.4-8.2) gm/dl Albumin (3.4-5.0) gm/dl Globulin (2.5-4.0) gm/dl Albumin/Globulin Ratio (0.9-2) Lipase (73-393) U/L Beta-Hydroxybutyric Acd (0.2-2.81) mg/dl TSH (0.300-4.500) uIu/ml Urine Color Urine Appearance (Clear) Urine pH (4.5-7.5) Ur Specific [place] (1.000-1.030) Urine Protein (Negative) Urine Glucose (UA) (Negative) Urine Ketones (Negative) Urine Blood (Negative) Urine Nitrite (Negative) Urine Bilirubin (Negative) Urine Urobilinogen (Negative) Ur Leukocyte Esterase (Negative) Urine WBC (Auto) (0-5) /hpf Urine RBC (Auto) (0-4) /hpf U Hyaline Cast (Auto) (0-5) /lpf U Epithel Cells (Auto) (0-5) /lpf Urine Bacteria (Auto) (Negative) COVID-19 Eval Order SARS-CoV-2 (PCR) (Negative) Administered Medications Sodium Chloride (Nss 1000ml) 1,000 mls @ 125 mls/hr IV .Q8H BARRY Stop: 11/04/20 15:23 Last Admin: 11/03/20 23:30 Dose: 125 mls/hr Documented by: [id number] Insulin Aspart (Insulin Aspart 100 Units/Ml 3 Ml Pen) 0 units SC ACHS BARRY Stop: 12/04/20 00:00 Last Admin: 11/04/20 00:30 Dose: 7 units Documented by: [id number] Cosigned by: [id number] Discontinued Medications Hydromorphone HCl (Hydromorphone Hcl 2 Mg Tab) 5 mg PO NOW STA Stop: 11/03/20 15:30 Last Admin: 11/03/20 16:02 Dose: 5 mg Documented by: [id number] Sodium Chloride (Nss) 500 mls @ 999 mls/hr IV .Q31M ONE Stop: 11/03/20 15:52 Last Infusion: 11/03/20 16:24 Dose: 0 mls/hr Documented by: [id number] Admin: 11/03/20 15:52 Dose: 999 mls/hr Documented by: [id number] Acetaminophen (Ofirmev) 1,000 mg in 100 mls @ 400 mls/hr IV NOW STA Stop: 11/03/20 15:43 Last Infusion: 11/03/20 16:24 Dose: 0 mls/hr Documented by: [id number] Admin: 11/03/20 15:52 Dose: 400 mls/hr Documented by: [id number] Imaging Data Radiologist's Impression: Chest X-Ray 11/03/20 15:22 SINGLE VIEW CHEST CLINICAL HISTORY: Atypical chest pain. FINDINGS: An AP, portable, upright chest radiograph is compared to study dated 09/07/2020. Correlation is made with chest CT dated 10/12/2019. The heart is mildly enlarged. The pulmonary vasculature is noncongested. Foci of scarring/atelectasis are noted in the left midlung. There is mild elevation of the left hemidiaphragm. No airspace consolidation or large pleural effusion is seen. There is no pneumothorax. The skeletal structures are osteopenic. Chronic deformity of the left shoulder is unchanged from previous. Arthritic change is also seen in the right shoulder and thoracic spine. IMPRESSION: No active disease in the chest. ACT 112: Negative or not required by law. Electronically signed by: Stuart Shaw M.D. 11/03/2020 5:15 PM Abdomen/Pelvis CT 11/03/20 15:25 CT SCAN OF THE CHEST, ABDOMEN, AND PELVIS WITH IV CONTRAST CLINICAL HISTORY: Trauma. Fall. COMPARISON STUDY: Chest CT dated 10/12/2019. Abdominal CT dated 09/07/2020. TECHNIQUE: Following the IV administration of 94 of Optiray 320, CT scan of the chest, abdomen, and pelvis was performed from the thoracic inlet to the proximal femora. Images are reviewed in the axial, sagittal, and coronal planes. IV contr ast was administered without complication. A dose lowering technique was utilized adhering to the principles of ALARA. The examinations are degraded by motion artifact. CT DOSE: 2352.15 mGy.cm FINDINGS: CHEST: Thyroid: Imaged portions of the thyroid gland are normal in size and attenuation. Thoracic aorta: There is atherosclerotic calcification of the thoracic aorta , which is normal in caliber and demonstrates standard 3-vessel arch anatomy. No dissection is seen. Pulmonary vasculature: The pulmonary trunk is normal in caliber. There are no filling defects identified in the central pulmonary vessels to indicate pulmonary embolus. Note that this examination was not protocoled for evaluation of the pulmonary arteries. Heart: The heart is enlarged and without pericardial effusion. The coronary arteries and mitral annulus are densely calcified. Lungs and pleural spaces: Evaluation of the lung parenchyma is compromised by motion artifact. Foci of linear atelectasis are seen throughout both lungs, greatest in the left upper lobe and lingula. There is no airspace consolidation typical for pneumonia, pleural effusion, or pneumothorax. The trachea and central airways appear clear. Mediastinum: There is no mediastinal hematoma or lymphadenopathy. Priscila: Clear. Axillae: There is no axillary lymphadenopathy. Bony thorax: The skeletal structures are osteopenic. The bony thorax appears intact. No lytic or blastic lesions are identified. Advanced chronic deformity of the left shoulder is unchanged from previous. ABDOMEN AND PELVIS: Liver: The contrast-enhanced liver is normal in size, contour, and attenuation. There is mild central intrahepatic biliary ductal dilatation. The hepatic veins and portal veins are patent. Gallbladder: Surgically absent. Spleen: Normal in size and attenuation. Pancreas: Moderately atrophic and grossly unremarkable. Adrenal glands: Unremarkable. Kidneys: The contrast enhanced kidneys demonstrate mild cortical atrophy and are without hydronephrosis. The kidneys enhance symmetrically. Abdominal vasculature: The abdominal aorta is normal in course and caliber noting advanced atherosclerotic calcification. An IVC filter is in place. Stomach and bowel: There is a small hiatal hernia. There is moderate constipation. No bowel obstruction is seen. There is mild diverticulosis of the colon without CT evidence of acute diverticulitis. The appendix is not identified and reported surgically absent. Peritoneum: There is no intraperitoneal free air or abdominal ascites. Lymphadenopathy: None. Pelvic viscera: Evaluation of the pelvis is degraded by streak artifact from a right hip arthroplasty. The bladder is markedly distended but otherwise normal in appearance. The uterus is surgically absent. No adnexal lesion is seen. Skeletal structures: The skeletal structures are osteopenic. The lumbosacral spine, bony pelvis, and proximal femora appear intact. There is moderate lumbosacral spondylosis. No lytic or blastic lesions are seen. A right hip arthroplasty is in place. IMPRESSION: 1. There is no acute posttraumatic intrathoracic abnormality. 2. There is no airspace consolidation, pleural effusion, or pneumothorax. 3. Cardiomegaly. 4. There is no evidence of solid organ injury in the abdomen or pelvis. 5. Marked bladder distention. 6. Moderate constipation. 7. Additional findings as above. ACT 112: Negative or not required by law. Electronically signed by: Stuart Shaw M.D. 11/03/2020 6:[address] 11/03/20 15:25 CT SCAN OF THE CERVICAL SPINE CLINICAL HISTORY: Trauma. Fall. COMPARISON STUDY: CT of the cervical spine dated 10/12/2019. TECHNIQUE: CT scan of the cervical spine is performed from the skull base to the upper thoracic spine. Images are reviewed in the axial, sagittal, and coronal planes. IV contrast was not administered for this examination. A dose lowering technique was utilized adhering to the principles of ALARA. FINDINGS: Skeletal structures: The skeletal structures are osteopenic. There is no evidence of fracture or subluxation involving the cervical spine. Vertebral body height and alignment are maintained. There is straightening of the cervical lordosis. Anterior osteophytes are seen throughout. The odontoid process and lateral masses are intact. The atlantoaxial articulation is preserved noting advanced productive degenerative change. The spinous processes appear intact. There is moderate to advanced multilevel cervical spondylosis. Uncovertebral and facet arthropathy contribute to neural foraminal stenosis at several levels. Intervertebral discs: There is moderate to severe disc space narrowing at C4-C5, C5-C6, and C6-C7. Central canal: Large posterior disc osteophyte complexes at C4-C5, C5-C6, and C6-C7 likely contribute to multilevel acquired compromise of the central canal. Soft tissues: The prevertebral and paraspinous soft tissues are within normal limits. There is atherosclerotic calcification of the carotid bulbs. The thyroid gland is atrophic. Calvarium: The visualized calvarium at the skull base appears intact. Brain parenchyma: Partially visualized brain parenchyma at the skull base is within normal limits. Sinuses and mastoids: The visualized paranasal sinuses are clear. The mastoid air cells are well pneumatized. Lung apices: Clear as visualized. IMPRESSION: 1. There is no evidence of fracture or subluxation involving the cervical spine. 2. Osteopenia and spondylotic change as above. ACT 112: Negative or not required by law. Electronically signed by: Stuart Shaw M.D. 11/03/2020 6:[address] 11/03/20 15:25 CT SCAN OF THE CHEST, ABDOMEN, AND PELVIS WITH IV CONTRAST CLINICAL HISTORY: Trauma. Fall. COMPARISON STUDY: Chest CT dated 10/12/2019. Abdominal CT dated 09/07/2020. TECHNIQUE: Following the IV administration of 94 of Optiray 320, CT scan of the chest, abdomen, and pelvis was performed from the thoracic inlet to the proximal femora. Images are reviewed in the axial, sagittal, and coronal planes. IV contrast was administered without complication. A dose lowering technique was utilized adhering to the principles of ALARA. The examinations are degraded by motion artifact. CT DOSE: 2352.15 mGy.cm FINDINGS: CHEST: Thyroid: Imaged portions of the thyroid gland are normal in size and attenuation. Thoracic aorta: There is atherosclerotic calcification of the thoracic aorta , which is normal in caliber and demonstrates standard 3-vessel arch anatomy. No dissection is seen. Pulmonary vasculature: The pulmonary trunk is normal in caliber. There are no filling defects identified in the central pulmonary vessels to indicate pulmonary embolus. Note that this examination was not protocoled for evaluation of the pulmonary arteries. Heart: The heart is enlarged and without pericardial effusion. The coronary arteries and mitral annulus are densely calcified. Lungs and pleural spaces: Evaluation of the lung parenchyma is compromised by motion artifact. Foci of linear atelectasis are seen throughout both lungs, greatest in the left upper lobe and lingula. There is no airspace consolidation typical for pneumonia, pleural effusion, or pneumothorax. The trachea and central airways appear clear. Mediastinum: There is no mediastinal hematoma or lymphadenopathy. Priscila: Clear. Axillae: There is no axillary lymphadenopathy. Bony thorax: The skeletal structures are osteopenic. The bony thorax appears intact. No lytic or blastic lesions are identified. Advanced chronic deformity of the left shoulder is unchanged from previous. ABDOMEN AND PELVIS: Liver: The contrast-enhanced liver is normal in size, contour, and attenuation. There is mild central intrahepatic biliary ductal dilatation. The hepatic veins and portal veins are patent. Gallbladder: Surgically absent. Spleen: Normal in size and attenuation. Pancreas: Moderately atrophic and grossly unremarkable. Adrenal glands: Unremarkable. Kidneys: The contrast enhanced kidneys demonstrate mild cortical atrophy and are without hydronephrosis. The kidneys enhance symmetrically. Abdominal vasculature: The abdominal aorta is normal in course and caliber noting advanced atherosclerotic calcification. An IVC filter is in place. Stomach and bowel: There is a small hiatal hernia. There is moderate constipation. No bowel obstruction is seen. There is mild diverticulosis of the colon without CT evidence of acute diverticulitis. The appendix is not identified and reported surgically absent. Peritoneum: There is no intraperitoneal free air or abdominal ascites. Lymphadenopathy: None. Pelvic viscera: Evaluation of the pelvis is degraded by streak artifact from a right hip arthroplasty. The bladder is markedly distended but otherwise normal in appearance. The uterus is surgically absent. No adnexal lesion is seen. Skeletal structures: The skeletal structures are osteopenic. The lumbosacral spine, bony pelvis, and proximal femora appear intact. There is moderate lumbosacral spondylosis. No lytic or blastic lesions are seen. A right hip arthroplasty is in place. IMPRESSION: 1. There is no acute posttraumatic intrathoracic abnormality. 2. There is no airspace consolidation, pleural effusion, or pneumothorax. 3. Cardiomegaly. 4. There is no evidence of solid organ injury in the abdomen or pelvis. 5. Marked bladder distention. 6. Moderate constipation. 7. Additional findings as above. ACT 112: Negative or not required by law. Electronically signed by: Stuart Shaw M.D. 11/03/2020 6:[address] 11/03/20 15:25 CT SCAN OF THE BRAIN WITHOUT IV CONTRAST CLINICAL HISTORY: Fall. COMPARISON STUDY: CT of the brain dated 09/07/2020. TECHNIQUE: Unenhanced axial CT scan of the brain is performed from the vertex to the skull base. A dose lowering technique was utilized adhering to the principles of ALARA. FINDINGS: Brain parenchyma: There are age-related involutional changes noting moderate subcortical and periventricular microangiopathic change. There is no hemorrhage, mass effect, or evidence of acute territorial ischemia by CT criteria. Welch- white matter differentiation is preserved. No extra-axial fluid collection is seen. Ventricles, sulci, cisterns: Prominent secondary to involutional change. Intracranial vasculature: There is atherosclerotic calcification of the cavernous carotid and vertebral arteries. Calvarium: The skeletal structures are osteopenic. No depressed calvarial fracture is identified. Sinuses and mastoids: There is an air-fluid level in the left maxillary antrum. Mild mucosal thickening is noted in the frontal and ethmoid sinuses. The mastoid air cells are well pneumatized. Orbits: The bony orbits are grossly intact. There are bilateral ocular lens implants. IMPRESSION: There is no hemorrhage, mass effect, or evidence of acute territorial ischemia by CT criteria. ACT 112: Negative or not required by law. Electronically signed by: Stuart Shaw M.D. 11/03/2020 5:55 PM Foot X-Ray 11/03/20 15:27 LEFT FOOT 2 VIEWS CLINICAL HISTORY: Fall with left foot pain. FINDINGS: AP and crosstable lateral views of the left foot are correlated with left ankle radiographs dated 12/30/2015. The skeletal structures are osteopenic. No fracture is identified. There are large dorsal and plantar calcaneal enthesophytes. Degenerative spurring is seen along the dorsal aspect of the tarsal bones. Mild osteoarthritic change is seen at the first metatarso phalangeal joint. An os navicularis is incidentally noted. The overlying soft tissues are normal as imaged. There is atherosclerotic calcification of the regional arteries. IMPRESSION: No fracture is identified. Electronically signed by: Stuart Shaw M.D. 11/03/2020 5:12 PM Foot X-Ray 11/03/20 15:27 RIGHT FOOT 2 VIEWS CLINICAL HISTORY: Fall with right foot pain. FINDINGS: AP and crosstable lateral views of the right foot are obtained. No prior studies are available for comparison at the time of dictation. The skeletal structures are osteopenic. No fracture is seen. There are large dorsal and plantar calcaneal enthesophytes. Mild osteoarthritic change is seen at the first metatarsophalangeal joint. There is mild degenerative spurring along the dorsal aspect of the tarsal bones. Mild soft tissue swelling is suggested in the forefoot. There is atherosclerotic calcification of the regional arteries. IMPRESSION: There is no radiographic evidence of fracture. Electronically signed by: Stuart Shaw M.D. 11/03/2020 5:09 PM Knee X-Ray 11/03/20 15:27 RIGHT KNEE 3 VIEWS CLINICAL HISTORY: Fall with right knee pain. FINDINGS: AP, crosstable lateral, and sunrise views of the right knee are compared to study dated 11/07/2015. The skeletal structures are osteopenic. No fracture is seen. There is mild tricompartmental degenerative joint space narrowing. There are small marginal osteophytes and degenerative beaking of the tibial spine. Patellar enthesophytes are observed. There is no joint effusion. Prepatellar soft tissue swelling is observed. There is faint chondrocalcinosis in the medial and lateral compartments. A calcified fabella is incidentally noted. Surgical clips are seen in the upper calf. There is mild atherosclerotic calcification of the regional arteries. IMPRESSION: 1. Prepatellar soft tissue swelling with no fracture identified. 2. Osteopenia and mild degenerative change as above. Electronically signed by: Stuart Shaw M.D. 11/03/2020 5:07 PM Knee X-Ray 11/03/20 15:27 LEFT KNEE 3 VIEWS CLINICAL HISTORY: Fall. Left knee pain. FINDINGS: AP, crosstable lateral, and sunrise views of the left knee are compared to study dated 11/07/2015. The skeletal structures are osteopenic. No fracture is identified. There is mild tricompartmental degenerative joint space narrowing. Chondrocalcinosis is noted in the medial and lateral compartments. There are small marginal osteophytes and degenerative beaking of the tibial spine. Patellar enthesophytes are noted. There is no joint effusion. Mild soft tissue edema is suggested in the medial knee. Surgical clips are present in the upper calf. There is mild atherosclerotic calcification of the regional arteries. IMPRESSION: 1. Mild soft tissue swelling with no acute bony abnormality identified. 2. Osteopenia with degenerative change and chondrocalcinosis as above. Electronically signed by: Stuart Shaw M.D. 11/03/2020 5:05 PM Shoulder X-Ray 11/03/20 15:27 LEFT SHOULDER 3 VIEWS CLINICAL HISTORY: Fall with left shoulder pain. FINDINGS: 3 views of the left shoulder are compared to study dated 09/24/2019. The skeletal structures are osteopenic. There is no radiographic evidence of acute fracture or dislocation. The left humeral head is absent. Advanced chronic deformity of the left proximal humerus and glenoid is unchanged from previous with associated bony fragmentation. The acromioclavicular joint appears maintained noting mild degenerative change. The overlying soft tissues are normal as imaged. The visualized left lung parenchyma appears clear. IMPRESSION: 1. No acute fracture or dislocation is identified. 2. Unchanged chronic deformity of the left proximal humerus and glenoid. Electronically signed by: Stuart Shaw M.D. 11/03/2020 5:14 PM Hip/Pelvis X-Ray 11/03/20 15:28 SINGLE VIEW PELVIS; 2 VIEWS LEFT HIP CLINICAL HISTORY: Fall. Left hip pain. FINDINGS: An AP view of the pelvis with AP and frog-leg views of the left hip are compared to study dated 11/07/2015. The skeletal structures are osteopenic. There is no radiographic evidence of acute fracture involving the hips or bony pelvis. A bipolar right hip arthroplasty is in near-anatomic alignment. Moderate to advanced degenerative joint space narrowing is noted in the left hip. Mild degenerative sclerosis is seen in the sacroiliac joints. The overlying soft tissues are normal as imaged. IMPRESSION: No acute bony abnormality is identified. Electronically signed by: Stuart Shaw M.D. 11/03/2020 5:02 PM Discharge Plan Visit Data Chief Complaint: Fall Stated Complaint: FALL ED Provider: Adolfo Sethi Discharge Problem: Rhabdomyolysis, Fall from standing, Ambulatory dysfunction, Chronic pain Patient Disposition: Admitted As Inpatient Discharge Instructions Interventions: ED Discharge Assessment Last Done: 11/03/20 22:59 Discharge Problem: Rhabdomyolysis Qualifiers: Rhabdomyolysis type: traumatic Encounter type: initial encounter Qualified Code(s): T79.6XXA - Traumatic ischemia of muscle, initial encounter Fall from standing Qualifiers: Encounter type: initial encounter Qualified Code(s): W19.XXXA - Unspecified fall, initial encounter Chronic pain Qualifiers: Chronic pain type: other chronic pain Qualified Code(s): G89.29 - Other chronic pain
[2020-11-03 16:02] LABS: Basophils # (auto) 0.01 K/uL (0-0.2); Basophils % (auto) 0.1 %; Eosinophils # (auto) 0.04 K/uL (0-0.5); Eosinophils % (auto) 0.3 %; Hematocrit (blood only) 46.9 % (37-47); Hemoglobin 16.1 g/dL (12.0-16.0); Immature Granulocytes # (auto) 0.03 K/uL (0.00-0.02); Immature Granulocytes % (auto) 0.2 %; Lymphocytes # (auto) 1.29 K/uL (1.2-3.4); Lymphocytes % (auto) 9.6 %; Mean Corpuscular Hemoglobin 31.8 pg (25-34); Mean Corpuscular Hgb Conc 34.3 g/dL (32-36); Mean Corpuscular Volume 92.7 fL (80-100); Mean Platelet Volume 11.9 fL (7.4-10.4); Monocytes # (auto) 0.68 K/uL (0.11-0.59); Neutrophils # (auto) 11.42 K/uL (1.4-6.5); Neutrophils % (auto) 84.8 %; Platelet Count 249 K/uL (130-400); RDW Standard Deviation 44.2 fL (36.4-46.3); Red Blood Count 5.06 M/uL (4.2-5.4); White Blood Count 13.47 K/uL (4.8-10.8)
[2020-11-03 16:14] LABS: Partial Thromboplastin Time 26.9 Seconds (21.0-31.0); Prothrombin Time 10.1 Seconds (9.0-12.0)
[2020-11-03 16:30] LABS: Alanine Aminotransferase 24 U/L (12-78); Albumin Globulin Ratio 0.9 (0.9-2); Aspartate Aminotransferase 51 U/L (15-37); BUN Creatinine Ratio 20.4 (10-20); Bilirubin Direct 0.2 mg/dl (0-0.2); Blood Urea Nitrogen 22 mg/dl (7-18); Calcium 9.7 mg/dl (8.5-10.1); Carbon Dioxide 29 mmol/L (21-32); Chloride 97 mmol/L (98-107); Creatinine Clr Calc Pharmacy 40.7 ml/min; Est GFR (African American) 56.5 ml/min; Est GFR (Non-African American) 48.7 ml/min; Globulin 4.4 gm/dl (2.5-4.0); Glucose 371 mg/dl (70-99); Lipase 73 U/L (73-393); Magnesium 2.3 mg/dl (1.8-2.4); Phosphorus 3.4 mg/dl (2.5-4.9); Potassium 4.1 mmol/L (3.5-5.1); Sodium 134 mmol/L (136-145); Total Protein 8.4 gm/dl (6.4-8.2)
[2020-11-03 16:39] LABS: Alkaline Phosphatase 191 U/L (45-117); Troponin I < 0.015 ng/ml (0-0.045)
[2020-11-03 16:42] LABS: Beta-Hydroxybutyrate 6.92 mg/dl (0.2-2.81); Creatine Kinase 1388 U/L (26-192)
--- NOTE | 2020-11-03 17:00 | Electrocardiogram Report ---
Test Reason : Blood Pressure : / mmHG Vent. Rate : 085 BPM Atrial Rate : 085 BPM P-R Int : 196 ms QRS Dur : 090 ms QT Int : 390 ms P-R-T Axes : 073 -33 080 degrees QTc Int : 464 ms Poor data quality, interpretation may be adversely affected Normal sinus rhythm Left axis deviation Anteroseptal ST elevation, most consistent with repolarization variant Abnormal ECG When compared with ECG of 08-SEP-2020 14:44, No significant change Confirmed by Michael Dela Cruz ([id number]) on 11/03/2020 5:00:00 PM Referred By: REFERRED SELF Confirmed By:Michael Dela Cruz
--- NOTE | 2020-11-03 17:03 | XRay Report ---
SINGLE VIEW PELVIS; 2 VIEWS LEFT HIP CLINICAL HISTORY: Fall. Left hip pain. FINDINGS: An AP view of the pelvis with AP and frog-leg views of the left hip are compared to study d ated 11/07/2015. The skeletal structures are osteopenic. There is no radiographic evidence of acute fr acture involving the hips or bony pelvis. A bipolar right hip arthroplasty is in near-anatomic alignm ent. Moderate to advanced degenerative joint space narrowing is noted in the left hip. Mild degenerat cristino sclerosis is seen in the sacroiliac joints. The overlying soft tissues are normal as imaged. IMPRESSION: No acute bony abnormality is identified. Electronically signed by: Stuart Shaw M.D. 11/03/2020 5:02 PM
--- NOTE | 2020-11-03 17:06 | XRay Report ---
LEFT KNEE 3 VIEWS CLINICAL HISTORY: Fall. Left knee pain. FINDINGS: AP, crosstable lateral, and sunrise views of the left knee are compared to study dated 11/06. The skeletal structures are osteopenic. No fracture is identified. There is mild tricompartmen cherri degenerative joint space narrowing. Chondrocalcinosis is noted in the medial and lateral compartm ents. There are small marginal osteophytes and degenerative beaking of the tibial spine. Patellar ent hesophytes are noted. There is no joint effusion. Mild soft tissue edema is suggested in the medial k nee. Surgical clips are present in the upper calf. There is mild atherosclerotic calcification of the regional arteries. IMPRESSION: 1. Mild soft tissue swelling with no acute bony abnormality identified. 2. Osteopenia with degenerative change and chondrocalcinosis as above. Electronically signed by: Stuart Shaw M.D. 11/03/2020 5:05 PM
--- NOTE | 2020-11-03 17:08 | XRay Report ---
RIGHT KNEE 3 VIEWS CLINICAL HISTORY: Fall with right knee pain. FINDINGS: AP, crosstable lateral, and sunrise views of the right knee are compared to study dated 10/12. The skeletal structures are osteopenic. No fracture is seen. There is mild tricompartmental d egenerative joint space narrowing. There are small marginal osteophytes and degenerative beaking of t he tibial spine. Patellar enthesophytes are observed. There is no joint effusion. Prepatellar soft ti ssue swelling is observed. There is faint chondrocalcinosis in the medial and lateral compartments. A calcified fabella is incidentally noted. Surgical clips are seen in the upper calf. There is mild at herosclerotic calcification of the regional arteries. IMPRESSION: 1. Prepatellar soft tissue swelling with no fracture identified. 2. Osteopenia and mild degenerative change as above. Electronically signed by: Stuart Shaw M.D. 11/03/2020 5:07 PM
--- NOTE | 2020-11-03 17:10 | XRay Report ---
RIGHT FOOT 2 VIEWS CLINICAL HISTORY: Fall with right foot pain. FINDINGS: AP and crosstable lateral views of the right foot are obtained. No prior studies are availa ble for comparison at the time of dictation. The skeletal structures are osteopenic. No fracture is s een. There are large dorsal and plantar calcaneal enthesophytes. Mild osteoarthritic change is seen a t the first metatarsophalangeal joint. There is mild degenerative spurring along the dorsal aspect of the tarsal bones. Mild soft tissue swelling is suggested in the forefoot. There is atherosclerotic c alcification of the regional arteries. IMPRESSION: There is no radiographic evidence of fracture. Electronically signed by: Stuart Shaw M.D. 11/03/2020 5:09 PM
--- NOTE | 2020-11-03 17:13 | XRay Report ---
LEFT FOOT 2 VIEWS CLINICAL HISTORY: Fall with left foot pain. FINDINGS: AP and crosstable lateral views of the left foot are correlated with left ankle radiographs dated 12/30/2015. The skeletal structures are osteopenic. No fracture is identified. There are large dorsal and plantar calcaneal enthesophytes. Degenerative spurring is seen along the dorsal aspect of the tarsal bones. Mild osteoarthritic change is seen at the first metatarsophalangeal joint. An os n avicularis is incidentally noted. The overlying soft tissues are normal as imaged. There is atheroscl erotic calcification of the regional arteries. IMPRESSION: No fracture is identified. Electronically signed by: Stuart Shaw M.D. 11/03/2020 5:12 PM
--- NOTE | 2020-11-03 17:15 | XRay Report ---
LEFT SHOULDER 3 VIEWS CLINICAL HISTORY: Fall with left shoulder pain. FINDINGS: 3 views of the left shoulder are compared to study dated 09/24/2019. The skeletal structures are osteopenic. There is no radiographic evidence of acute fracture or dislocation. The left humeral head is absent. Advanced chronic deformity of the left proximal humerus and glenoid is unchanged fro m previous with associated bony fragmentation. The acromioclavicular joint appears maintained noting mild degenerative change. The overlying soft tissues are normal as imaged. The visualized left lung p arenchyma appears clear. IMPRESSION: 1. No acute fracture or dislocation is identified. 2. Unchanged chronic deformity of the left proximal humerus and glenoid. Electronically signed by: Stuart Shaw M.D. 11/03/2020 5:14 PM
--- NOTE | 2020-11-03 17:17 | XRay Report ---
SINGLE VIEW CHEST CLINICAL HISTORY: Atypical chest pain. FINDINGS: An AP, portable, upright chest radiograph is compared to study dated 09/07/2020. Correlation is made with chest CT dated 10/12/2019. The heart is mildly enlarged. The pulmonary vasculature is non congested. Foci of scarring/atelectasis are noted in the left midlung. There is mild elevation of the left hemidiaphragm. No airspace consolidation or large pleural effusion is seen. There is no pneumot horax. The skeletal structures are osteopenic. Chronic deformity of the left shoulder is unchanged fr om previous. Arthritic change is also seen in the right shoulder and thoracic spine. IMPRESSION: No active disease in the chest. ACT 112: Negative or not required by law. Electronically signed by: Stuart Shaw M.D. 11/03/2020 5:15 PM
--- NOTE | 2020-11-03 17:57 | CT Scan Report ---
CT SCAN OF THE BRAIN WITHOUT IV CONTRAST CLINICAL HISTORY: Fall. COMPARISON STUDY: CT of the brain dated 09/07/2020. TECHNIQUE: Unenhanced axial CT scan of the brain is performed from the vertex to the skull base. A do se lowering technique was utilized adhering to the principles of ALARA. FINDINGS: Brain parenchyma: There are age-related involutional changes noting moderate subcortical and periven tricular microangiopathic change. There is no hemorrhage, mass effect, or evidence of acute territori al ischemia by CT criteria. Welch-white matter differentiation is preserved. No extra-axial fluid mel ection is seen. Ventricles, sulci, cisterns: Prominent secondary to involutional change. Intracranial vasculature: There is atherosclerotic calcification of the cavernous carotid and vertebr al arteries. Calvarium: The skeletal structures are osteopenic. No depressed calvarial fracture is identified. Sinuses and mastoids: There is an air-fluid level in the left maxillary antrum. Mild mucosal thickeni ng is noted in the frontal and ethmoid sinuses. The mastoid air cells are well pneumatized. Orbits: The bony orbits are grossly intact. There are bilateral ocular lens implants. IMPRESSION: There is no hemorrhage, mass effect, or evidence of acute territorial ischemia by CT mikayla philip. ACT 112: Negative or not required by law. Electronically signed by: Stuart Shaw M.D. 11/03/2020 5:55 PM
--- NOTE | 2020-11-03 18:08 | CT Scan Report ---
CT SCAN OF THE CERVICAL SPINE CLINICAL HISTORY: Trauma. Fall. COMPARISON STUDY: CT of the cervical spine dated 10/12/2019. TECHNIQUE: CT scan of the cervical spine is performed from the skull base to the upper thoracic spine . Images are reviewed in the axial, sagittal, and coronal planes. IV contrast was not administered fo r this examination. A dose lowering technique was utilized adhering to the principles of ALARA. FINDINGS: Skeletal structures: The skeletal structures are osteopenic. There is no evidence of fracture or subl uxation involving the cervical spine. Vertebral body height and alignment are maintained. There is st raightening of the cervical lordosis. Anterior osteophytes are seen throughout. The odontoid process and lateral masses are intact. The atlantoaxial articulation is preserved noting advanced productive degenerative change. The spinous processes appear intact. There is moderate to advanced multilevel ce rvical spondylosis. Uncovertebral and facet arthropathy contribute to neural foraminal stenosis at se veral levels. Intervertebral discs: There is moderate to severe disc space narrowing at C4-C5, C5-C6, and C6-C7. Central canal: Large posterior disc osteophyte complexes at C4-C5, C5-C6, and C6-C7 likely contribute to multilevel acquired compromise of the central canal. Soft tissues: The prevertebral and paraspinous soft tissues are within normal limits. There is athero sclerotic calcification of the carotid bulbs. The thyroid gland is atrophic. Calvarium: The visualized calvarium at the skull base appears intact. Brain parenchyma: Partially visualized brain parenchyma at the skull base is within normal limits. Sinuses and mastoids: The visualized paranasal sinuses are clear. The mastoid air cells are well pneu matized. Lung apices: Clear as visualized. IMPRESSION: 1. There is no evidence of fracture or subluxation involving the cervical spine. 2. Osteopenia and spondylotic change as above. ACT 112: Negative or not required by law. Electronically signed by: Stuart Shaw M.D. 11/03/2020 6:07 PM
--- NOTE | 2020-11-03 18:26 | CT Scan Report ---
CT SCAN OF THE CHEST, ABDOMEN, AND PELVIS WITH IV CONTRAST CLINICAL HISTORY: Trauma. Fall. COMPARISON STUDY: Chest CT dated 10/12/2019. Abdominal CT dated 09/07/2020. TECHNIQUE: Following the IV administration of 94 of [employer] 320, CT scan of the chest, abdomen, and p margareth was performed from the thoracic inlet to the proximal femora. Images are reviewed in the axial, sagittal, and coronal planes. IV contrast was administered without complication. A dose lowering te chnique was utilized adhering to the principles of ALARA. The examinations are degraded by motion art ifact. CT DOSE: 2352.15 mGy.cm FINDINGS: CHEST: Thyroid: Imaged portions of the thyroid gland are normal in size and attenuation. Thoracic aorta: There is atherosclerotic calcification of the thoracic aorta , which is normal in maisha iber and demonstrates standard 3-vessel arch anatomy. No dissection is seen. Pulmonary vasculature: The pulmonary trunk is normal in caliber. There are no filling defects identif ied in the central pulmonary vessels to indicate pulmonary embolus. Note that this examination was no t protocoled for evaluation of the pulmonary arteries. Heart: The heart is enlarged and without pericardial effusion. The coronary arteries and mitral annul us are densely calcified. Lungs and pleural spaces: Evaluation of the lung parenchyma is compromised by motion artifact. Foci o f linear atelectasis are seen throughout both lungs, greatest in the left upper lobe and lingula. The re is no airspace consolidation typical for pneumonia, pleural effusion, or pneumothorax. The trachea and central airways appear clear. Mediastinum: There is no mediastinal hematoma or lymphadenopathy. Priscila: Clear. Axillae: There is no axillary lymphadenopathy. Bony thorax: The skeletal structures are osteopenic. The bony thorax appears intact. No lytic or jennie tic lesions are identified. Advanced chronic deformity of the left shoulder is unchanged from previou s. ABDOMEN AND PELVIS: Liver: The contrast-enhanced liver is normal in size, contour, and attenuation. There is mild central intrahepatic biliary ductal dilatation. The hepatic veins and portal veins are patent. Gallbladder: Surgically absent. Spleen: Normal in size and attenuation. Pancreas: Moderately atrophic and grossly unremarkable. Adrenal glands: Unremarkable. Kidneys: The contrast enhanced kidneys demonstrate mild cortical atrophy and are without hydronephros is. The kidneys enhance symmetrically. Abdominal vasculature: The abdominal aorta is normal in course and caliber noting advanced atheroscle rotic calcification. An IVC filter is in place. Stomach and bowel: There is a small hiatal hernia. There is moderate constipation. No bowel obstructi on is seen. There is mild diverticulosis of the colon without CT evidence of acute diverticulitis. Th e appendix is not identified and reported surgically absent. Peritoneum: There is no intraperitoneal free air or abdominal ascites. Lymphadenopathy: None. Pelvic viscera: Evaluation of the pelvis is degraded by streak artifact from a right hip arthroplasty . The bladder is markedly distended but otherwise normal in appearance. The uterus is surgically abse nt. No adnexal lesion is seen. Skeletal structures: The skeletal structures are osteopenic. The lumbosacral spine, bony pelvis, and proximal femora appear intact. There is moderate lumbosacral spondylosis. No lytic or blastic lesions are seen. A right hip arthroplasty is in place. IMPRESSION: 1. There is no acute posttraumatic intrathoracic abnormality. 2. There is no airspace consolidation, pleural effusion, or pneumothorax. 3. Cardiomegaly. 4. There is no evidence of solid organ injury in the abdomen or pelvis. 5. Marked bladder distention. 6. Moderate constipation. 7. Additional findings as above. ACT 112: Negative or not required by law. Electronically signed by: Stuart Shaw M.D. 11/03/2020 6:25 PM
[2020-11-03 20:37] LABS: Appearance Urine Clear (Clear); Bacteria Urine Automated Negative (Negative); Bilirubin Urine Negative (Negative); Blood Urine Negative (Negative); Cast Urine Automated 0 /lpf (0-5); Color Urine Yellow; Epithelial Cell Urine Auto 0-5 /lpf (0-5); Glucose Urine UA 3+ (Negative); Ketones Urine Negative (Negative); Leukocyte Esterase Urine Negative (Negative); Nitrite Urine Negative (Negative); Protein Urine Trace (Negative); RBC Urine Automated 0-4 /hpf (0-4); Urobilinogen Urine Negative (Negative); WBC Urine Automated 0 /hpf (0-5)
--- NOTE | 2020-11-03 20:42 | History & Physical Report ---
Date of Service November 03, 2020 Assessment & Plan (1) Ambulatory dysfunction: Plan: 75 yo F with hx HTN, DM2, DVT, intracranial hemorrhage, Galeas's Palsy, aortic stenosis, admitted for fall from standing height and concern for deconditioning. Fall due to polypharmacy vs. deconditioning - XR feet, knees, shoulder, pelvis negative for fractures. Osteopenic bones throughout. - CT Head negative for intracranial bleed - CT Cspine negative for acute fracture/subluxation - CT Chest + A/P negative - Echo from 09/08/20 notes mild to mod aortic stenosis. - orthostatic blood pressures ordered - chronic medication list concerning for polypharmacy/oversedation that could contribute to fall - CK elevated to 1388 likely secondary to being down after the fall. gentle hydration, repeat CK in AM. - PT/OT evaluation Uncontrolled DM2 - A1c 10.6 09/08 - BSG 371 in ER, with B-OH 6.92. likely mix of dehydration and hyperglycemia - PO diabetic medications held. On 15u Levemir in AM daily at home - pharmacy consult for glycemic management given labile BSG and high insulin requirements during last admission Leukocytosis - WBC 13 with neutrophilic predominance - afebrile, hypertensive, normocardia, no indication for infection on imaging/exam - repeat CBC AM Chronic Pain? - reportedly takes hydromorphone 12 mg PO in AM, 8 mg afternoon, 8 mg PM - started on Gabapentin 100 mg TID at last admission for neuropathic aspect of pain. Could contribute to drowsiness, however med hx includes Gabapentin 600 mg TID, so less likely. - continue duloxetine 60 mg PO AM - consider pain management consult/establishment outpatient for focused control of pain medications - topical diclofenac scheduled QID application to knees rather than BID PRN HTN - markedly hypertensive >200/110 on arrival - regimen includes clonidine 0.1mg PO BID, lisinopril 40 AM, metoprolol succinate ER 100 mg HS, Lasix 40 mg AM - orthostatic vitals as above - BMP AM CAD - continue statin, plavix, asa 81 [d/c pantoprazole due to interaction and inactivation of plavix] - TTE 09/30 showing grade 1 diastolic dysfunction with elevated right ventricular pressures, mild aortic stenosis - dobutamine stress echo 09/30: negative for ischemia at 89% MPHR, no chest pain, no arrhythmia Osteopenia - consider initiation of alendronate etc. for prevention of osteoporosis and pathologic fractures in person high risk for falls Hx Cirrhosis - noted on CT A/P in august 2020, today's CT A/P noting normal contour of liver with mild central intrahepatic biliary ductal dilatation. - PT/INR WNL - platelet count WNL - Alk Phos 191, mild AST elevation to 51, normal ALT DVT ppx: heparin sq bid FEN/GI: NS @125ml/hr x 2L, Carb consistent Heart healthy diet Code Status: DNR/DNI Dispo: Med/Surg, PT/OT evaluations pending (2) Chronic pain: (3) Fall from standing: (4) Galeas's palsy: History of Present Illness Primary Care Provider: KEILY Medeiros 75 yo F brought to ER by ambulance, reportedly found laying on the floor by her bed. Pt responsive to direct questions but otherwise very lethargic and quickly falls asleep. Per nursing, has been this way the entirety of her time in the ER. HPI limited due to above decreased responsiveness. Review of chart shows recent admission for back pain from 09/07/20 - 09/13/20. Descriptions of her involvement with hospitalist team discussions appear to be similar to my experience in ER today, possibly is patient baseline. Allergies Allergy/AdvReac Type Severity Reaction Status Date / Time Cephalosporins Allergy Intermediate RINGING OF Verified 11/03/20 16:37 EARS,FALLING BALANCE ISSUES prochlorperazine Allergy Intermediate STROKE Verified 11/03/20 16:37 LIKE SYMPTOMS, CAN'T TALK linezolid AdvReac Intermediate diarrhea,vo Verified 11/03/20 16:37 miting tramadol AdvReac Intermediate UNSTEADY Verified 11/03/20 16:37 ON FEET, HYPERACTIVITY morphine AdvReac Unknown NOT Verified 11/03/20 16:37 EFFECTIVE Home Medications Medication Instructions Recorded Confirmed Type amlodipine 5 mg tablet 5 mg PO QAM 10/21/17 11/03/20 History aspirin 81 mg tablet,delayed 81 mg PO QAM 10/21/17 11/03/20 History release (Aspirin Low Dose) clonidine HCl 0.1 mg tablet 0.1 mg PO BID 10/21/17 11/03/20 History clopidogrel 75 mg tablet 75 mg PO QAM 10/21/17 11/03/20 History duloxetine 60 mg capsule,delayed 60 mg PO QAM 10/21/17 11/03/20 History release ferrous sulfate 325 mg (65 mg 325 mg PO QAM 10/21/17 11/03/20 History iron) tablet furosemide 40 mg tablet 40 mg PO QAM 10/21/17 11/03/20 History lisinopril 40 mg tablet 40 mg PO QAM 10/21/17 11/03/20 History metoprolol succinate 100 mg 100 mg PO HS 10/21/17 11/03/20 History tablet,extended release 24 hr pantoprazole 40 mg tablet,delayed 40 mg PO QAM 10/21/17 11/03/20 History release potassium gluconate 595 mg (99 mg) 595 mg PO QAM 10/21/17 11/03/20 History tablet melatonin 5 mg tablet 5 mg PO HS 12/13/17 11/03/20 History gabapentin 600 mg tablet 600 mg PO TID 06/17/18 11/03/20 History magnesium oxide 500 mg capsule 500 mg PO QAM 12/17/18 11/03/20 History insulin detemir U-100 100 unit/mL 15 unit SUBCUT QA 01/02/19 11/03/20 History (3 mL) subcutaneous pen (Levemir FlexTouch U-100 Insulin) atorvastatin 40 mg tablet 40 mg PO HS 10/12/19 11/03/20 History hydromorphone 4 mg tablet 4 mg PO 5XD PRN 12/26/19 11/03/20 History aspirin 325 mg tablet 650 mg PO TID 09/07/20 11/03/20 History diclofenac sodium 1 % topical gel 2 g TOPICAL BID PRN #100 g 09/13/20 11/03/20 Rx Past Med/Surg History Medical History Anemia Asthma CHF (congestive heart failure) Chronic back pain (06/14/12) Cirrhosis Noted on CT scan 09/08/2020 Confusion Dehydration Diabetes DVT (deep venous thrombosis) Fall Gout HTN (hypertension) Hypomagnesemia Intracranial hemorrhage (03/04/14) Recurrent falls (10/04/12) Rheumatoid arthritis (08/12/12) Sleep apnea (04/27/12) Subdural hematoma Weakness Surgical History H/O shoulder surgery History of hysterectomy Hx of appendectomy S/P cholecystectomy S/P IVC filter Family History Other Hypertension Seizures Social History Smoking Status: Never smoker Hx Alcohol Use: No Hx Substance Use: No Preferred Language: Latvian Communication Ability: Effective Visual Impairment: No Limitations 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: Normal Photographic Plate Maker Required: No Beliefs That Will Affect Care: None marital status: / Current Living Situation: Alone Current Living Situation Comment: Condo Other Information That Helps Us Care for You: No Feels Safe at Home: Yes Safety Concerns: Feels Safe At This Time Assistive Devices: Walker Review of Systems Review of Systems: Unobtainable due to cognitive status Constitutional: + fatigue +pain Physical Exam Physical Exam: Constitutional: thin elderly appearing female Eyes: left sided eyelid droop from galeas's palsy, pupils equal and reactive to light bilaterally Cardiac: RRR, no murmurs, gallops or rubs. Normal S1, S2. hypertensive. Pulm: CTA BL, no wheezes, rhonchi, crackles or rubs, moving air well throughout both lungs Abd: soft, nontender, nondistended, normal bowel sounds, no rebound or guarding Extremities: 1+ peripheral pulses, able to palpate DP but difficulty with PT BL. no edema Neuro: briefly responsive to voice, able to follow commands, lethargic Results & Data Results & Data ([facility]) Vital Signs (Past 12 Hours) Vital Signs Temp Pulse Resp BP Pulse Ox 11/03/20 19:52 96 H 18 146/89 H 95 11/03/20 18:30 91 H 15 95 11/03/20 18:01 90 16 95 11/03/20 17:30 85 18 153/71 H 11/03/20 17:00 84 14 156/78 H 11/03/20 16:31 93 H 19 173/110 H 11/03/20 16:00 93 H 20 192/106 H 11/03/20 15:31 92 H 20 166/138 H 93 11/03/20 15:00 36.6 C 97 H 18 205/111 H 93 Laboratory Results Laboratory Results WBC 13.47 K/uL (4.8-10.8) H 11/03/20 15:50 RBC 5.06 M/uL (4.2-5.4) 11/03/20 15:50 Hgb 16.1 g/dL (12.0-16.0) H 11/03/20 15:50 Hct 46.9 % (37-47) 11/03/20 15:50 MCV 92.7 fL (80-100) 11/03/20 15:50 MCH 31.8 pg (25-34) 11/03/20 15:50 MCHC 34.3 g/dL (32-36) 11/03/20 15:50 RDW Std Deviation 44.2 fL (36.4-46.3) 11/03/20 15:50 RDW Coeff of [place] 13.0 % (11.5-14.5) 11/03/20 15:50 Plt Count 249 K/uL (130-400) 11/03/20 15:50 MPV 11.9 fL (7.4-10.4) H 11/03/20 15:50 Immature Gran % (Auto) 0.2 % 11/03/20 15:50 Neut % (Auto) 84.8 % 11/03/20 15:50 Lymph % (Auto) 9.6 % 11/03/20 15:50 [place] % (Auto) 5.0 % 11/03/20 15:50 Eos % (Auto) 0.3 % 11/03/20 15:50 Baso % (Auto) 0.1 % 11/03/20 15:50 Neut # (Auto) 11.42 K/uL (1.4-6.5) H 11/03/20 15:50 Lymph # (Auto) 1.29 K/uL (1.2-3.4) 11/03/20 15:50 [place] # (Auto) 0.68 K/uL (0.11-0.59) H 11/03/20 15:50 Eos # (Auto) 0.04 K/uL (0-0.5) 11/03/20 15:50 Baso # (Auto) 0.01 K/uL (0-0.2) 11/03/20 15:50 Immature Gran # (Auto) 0.03 K/uL (0.00-0.02) H 11/03/20 15:50 PT 10.1 Seconds (9.0-12.0) 11/03/20 15:50 INR 1.0 (0.9-1.1) 11/03/20 15:50 APTT 26.9 Seconds (21.0-31.0) 11/03/20 15:50 PTT Ratio 1.0 11/03/20 15:50 Sodium 134 mmol/L (136-145) L 11/03/20 15:50 Potassium 4.1 mmol/L (3.5-5.1) 11/03/20 15:50 Chloride 97 mmol/L (98-107) L 11/03/20 15:50 Carbon Dioxide 29 mmol/L (21-32) 11/03/20 15:50 Anion Gap 8.0 (3-11) 11/03/20 15:50 BUN 22 mg/dl (7-18) H 11/03/20 15:50 Creatinine 1.10 mg/dl (0.6-1.2) 11/03/20 15:50 Est Cr Clr Drug Dosing 40.7 ml/min 11/03/20 15:50 Est GFR ( Amer) 56.5 ml/min 11/03/20 15:50 Est GFR (Non-Af Amer) 48.7 ml/min 11/03/20 15:50 BUN/Creatinine Ratio 20.4 (10-20) H 11/03/20 15:50 Glucose 371 mg/dl (70-99) H* 11/03/20 15:50 POC Glucose 272 mg/dl (70-99) H 11/03/20 23:26 Calcium 9.7 mg/dl (8.5-10.1) 11/03/20 15:50 Phosphorus 3.4 mg/dl (2.5-4.9) 11/03/20 15:50 Magnesium 2.3 mg/dl (1.8-2.4) 11/03/20 15:50 Total Bilirubin 1.0 mg/dl (0.2-1) 11/03/20 15:50 Direct Bilirubin 0.2 mg/dl (0-0.2) 11/03/20 15:50 AST 51 U/L (15-37) H 11/03/20 15:50 ALT 24 U/L (12-78) 11/03/20 15:50 Alkaline Phosphatase 191 U/L (45-117) H 11/03/20 15:50 Total Creatine Kinase 1388 U/L (26-192) H 11/03/20 15:50 Troponin I < 0.015 ng/ml (0-0.045) 11/03/20 15:50 Total Protein 8.4 gm/dl (6.4-8.2) H 11/03/20 15:50 Albumin 4.0 gm/dl (3.4-5.0) 11/03/20 15:50 Globulin 4.4 gm/dl (2.5-4.0) H 11/03/20 15:50 Albumin/Globulin Ratio 0.9 (0.9-2) 11/03/20 15:50 Lipase 73 U/L (73-393) 11/03/20 15:50 Beta-Hydroxybutyric Acd 6.92 mg/dl (0.2-2.81) H 11/03/20 15:50 TSH 1.730 uIu/ml (0.300-4.500) 11/03/20 15:50 Urine Color Yellow 11/03/20 20:20 Urine Appearance Clear (Clear) 11/03/20 20:20 Urine pH 5.0 (4.5-7.5) 11/03/20 20:20 Ur Specific [place] 1.030 (1.000-1.030) 11/03/20 20:20 Urine Protein Trace (Negative) H 11/03/20 20:20 Urine Glucose (UA) 3+ (Negative) H 11/03/20 20:20 Urine Ketones Negative (Negative) 11/03/20 20:20 Urine Blood Negative (Negative) 11/03/20 20:20 Urine Nitrite Negative (Negative) 11/03/20 20:20 Urine Bilirubin Negative (Negative) 11/03/20 20:20 Urine Urobilinogen Negative (Negative) 11/03/20 20:20 Ur Leukocyte Esterase Negative (Negative) 11/03/20 20:20 Urine WBC (Auto) 0 /hpf (0-5) 11/03/20 20:20 Urine RBC (Auto) 0-4 /hpf (0-4) 11/03/20 20:20 U Hyaline Cast (Auto) 0 /lpf (0-5) 11/03/20 20:20 U Epithel Cells (Auto) 0-5 /lpf (0-5) 11/03/20 20:20 Urine Bacteria (Auto) Negative (Negative) 11/03/20 20:20 COVID-19 Eval Order Covid19 at [facility] 11/03/20 16:03 SARS-CoV-2 (PCR) NEGATIVE (Negative) 11/03/20 16:03 Impressions Chest X-Ray 11/03/20 15:22 SINGLE VIEW CHEST CLINICAL HISTORY: Atypical chest pain. FINDINGS: An AP, portable, upright chest radiograph is compared to study dated 09/07/2020. Correlation is made with chest CT dated 10/12/2019. The heart is mildly enlarged. The pulmonary vasculature is noncongested. Foci of scarring/atelectasis are noted in the left midlung. There is mild elevation of the left hemidiaphragm. No airspace consolidation or large pleural effusion is seen. There is no pneumothorax. The skeletal structures are osteopenic. Chronic deformity of the left shoulder is unchanged from previous. Arthritic change is also seen in the right shoulder and thoracic spine. IMPRESSION: No active disease in the chest. ACT 112: Negative or not required by law. Electronically signed by: Stuart Shaw M.D. 11/03/2020 5:15 PM Abdomen/Pelvis CT 11/03/20 15:25 CT SCAN OF THE CHEST, ABDOMEN, AND PELVIS WITH IV CONTRAST CLINICAL HISTORY: Trauma. Fall. COMPARISON STUDY: Chest CT dated 10/12/2019. Abdominal CT dated 09/07/2020. TECHNIQUE: Following the IV administration of 94 of Optiray 320, CT scan of the chest, abdomen, and pelvis was performed from the thoracic inlet to the proximal femora. Images are reviewed in the axial, sagittal, and coronal planes. IV contrast was administered without complication. A dose lowering technique was utilized adhering to the principles of ALARA. The examinations are degraded by motion artifact. CT DOSE: 2352.15 mGy.cm FINDINGS: CHEST: Thyroid: Imaged portions of the thyroid gland are normal in size and attenuation. Thoracic aorta: There is atherosclerotic calcification of the thoracic aorta , which is normal in caliber and demonstrates standard 3-vessel arch anatomy. No dissection is seen. Pulmonary vasculature: The pulmonary trunk is normal in caliber. There are no filling defects identified in the central pulmonary vessels to indicate pulmonary embolus. Note that this examination was not protocoled for evaluation of the pulmonary arteries. Heart: The heart is enlarged and without pericardial effusion. The coronary arteries and mitral annulus are densely calcified. Lungs and pleural spaces: Evaluation of the lung parenchyma is compromised by motion artifact. Foci of linear atelectasis are seen throughout both lungs, greatest in the left upper lobe and lingula. There is no airspace consolidation typical for pneumonia, pleural effusion, or pneumothorax. The trachea and central airways appear clear. Mediastinum: There is no mediastinal hematoma or lymphadenopathy. Priscila: Clear. Axillae: There is no axillary lymphadenopathy. Bony thorax: The skeletal structures are osteopenic. The bony thorax appears intact. No lytic or blastic lesions are identified. Advanced chronic deformity of the left shoulder is unchanged from previous. ABDOMEN AND PELVIS: Liver: The contrast-enhanced liver is normal in size, contour, and attenuation. There is mild central intrahepatic biliary ductal dilatation. The hepatic veins and portal veins are patent. Gallbladder: Surgically absent. Spleen: Normal in size and attenuation. Pancreas: Moderately atrophic and grossly unremarkable. Adrenal glands: Unremarkable. Kidneys: The contrast enhanced kidneys demonstrate mild cortical atrophy and are without hydronephrosis. The kidneys enhance symmetrically. Abdominal vasculature: The abdominal aorta is normal in course and caliber noting advanced atherosclerotic calcification. An IVC filter is in place. Stomach and bowel: There is a small hiatal hernia. There is moderate constipation. No bowel obstruction is seen. There is mild diverticulosis of the colon without CT evidence of acute diverticulitis. The appendix is not identified and reported surgically absent. Peritoneum: There is no intraperitoneal free air or abdominal ascites. Lymphadenopathy: None. Pelvic viscera: Evaluation of the pelvis is degraded by streak artifact from a right hip arthroplasty. The bladder is markedly distended but otherwise normal in appearance. The uterus is surgically absent. No adnexal lesion is seen. Skeletal structures: The skeletal structures are osteopenic. The lumbosacral spine, bony pelvis, and proximal femora appear intact. There is moderate lumbosacral spondylosis. No lytic or blastic lesions are seen. A right hip arthroplasty is in place. IMPRESSION: 1. There is no acute posttraumatic intrathoracic abnormality. 2. There is no airspace consolidation, pleural effusion, or pneumothorax. 3. Cardiomegaly. 4. There is no evidence of solid organ injury in the abdomen or pelvis. 5. Marked bladder distention. 6. Moderate constipation. 7. Additional findings as above. ACT 112: Negative or not required by law. Electronically signed by: Stuart Shaw M.D. 11/03/2020 6:[address] 11/03/20 15:25 CT SCAN OF THE CERVICAL SPINE CLINICAL HISTORY: Trauma. Fall. COMPARISON STUDY: CT of the cervical spine dated 10/12/2019. TECHNIQUE: CT scan of the cervical spine is performed from the skull base to the upper thoracic spine. Images are reviewed in the axial, sagittal, and coronal planes. IV contrast was not administered for this examination. A dose lowering technique was utilized adhering to the principles of ALARA. FINDINGS: Skeletal structures: The skeletal structures are osteopenic. There is no evidence of fracture or subluxation involving the cervical spine. Vertebral body height and alignment are maintained. There is straightening of the cervical lordosis. Anterior osteophytes are seen throughout. The odontoid process and lateral masses are intact. The atlantoaxial articulation is preserved noting advanced productive degenerative change. The spinous processes appear intact. There is moderate to advanced multilevel cervical spondylosis. Uncovertebral and facet arthropathy contribute to neural foraminal stenosis at several levels. Intervertebral discs: There is moderate to severe disc space narrowing at C4-C5, C5-C6, and C6-C7. Central canal: Large posterior disc osteophyte complexes at C4-C5, C5-C6, and C6-C7 likely contribute to multilevel acquired compromise of the central canal. Soft tissues: The prevertebral and paraspinous soft tissues are within normal limits. There is atherosclerotic calcification of the carotid bulbs. The thyroid gland is atrophic. Calvarium: The visualized calvarium at the skull base appears intact. Brain parenchyma: Partially visualized brain parenchyma at the skull base is within normal limits. Sinuses and mastoids: The visualized paranasal sinuses are clear. The mastoid air cells are well pneumatized. Lung apices: Clear as visualized. IMPRESSION: 1. There is no evidence of fracture or subluxation involving the cervical spine. 2. Osteopenia and spondylotic change as above. ACT 112: Negative or not required by law. Electronically signed by: Stuart Shaw M.D. 11/03/2020 6:[address] 11/03/20 15:25 CT SCAN OF THE BRAIN WITHOUT IV CONTRAST CLINICAL HISTORY: Fall. COMPARISON STUDY: CT of the brain dated 09/07/2020. TECHNIQUE: Unenhanced axial CT scan of the brain is performed from the vertex to the skull base. A dose lowering technique was utilized adhering to the principles of ALARA. FINDINGS: Brain parenchyma: There are age-related involutional changes noting moderate subcortical and periventricular microangiopathic change. There is no hemorrhage, mass effect, or evidence of acute territorial ischemia by CT criteria. Welch- white matter differentiation is preserved. No extra-axial fluid collection is seen. Ventricles, sulci, cisterns: Prominent secondary to involutional change. Intracranial vasculature: There is atherosclerotic calcification of the cavernous carotid and vertebral arteries. Calvarium: The skeletal structures are osteopenic. No depressed calvarial fracture is identified. Sinuses and mastoids: There is an air-fluid level in the left maxillary antrum. Mild mucosal thickening is noted in the frontal and ethmoid sinuses. The mastoid air cells are well pneumatized. Orbits: The bony orbits are grossly intact. There are bilateral ocular lens implants. IMPRESSION: There is no hemorrhage, mass effect, or evidence of acute territorial ischemia by CT criteria. ACT 112: Negative or not required by law. Electronically signed by: Stuart Shaw M.D. 11/03/2020 5:55 PM Foot X-Ray 11/03/20 15:27 : IMPRESSION: No fracture is identified. LEFT FOOT 2 VIEWS Knee X-Ray 11/03/20 15:27: 1. Prepatellar soft tissue swelling with no fracture identified. 2. Osteopenia and mild degenerative change as above. Shoulder X-Ray 11/03/20 15:27 LEFT SHOULDER 3 VIEWS 1. No acute fracture or dislocation is identified. 2. Unchanged chronic deformity of the left proximal humerus and glenoid. Hip/Pelvis X-Ray 11/03/20 15:28 SINGLE VIEW PELVIS; 2 VIEWS LEFT HIP IMPRESSION: No acute bony abnormality is identified. Supervising Physician Co-Signing Physician Notes Attending addendum: I have physically seen this patient, have supervised the medical residents activities, and agree with the H&P unless as otherwise noted. Assessment and Plan: Ambulatory dysfunction/falls- Contributing factors: Deconditioning, polypharmacy, uncontrolled diabetes mellitus, other CT head negative CT C-spine negative CT chest/abdomen/pelvis negative Follow orthostatic blood pressures Minimize polypharmacy and oversedation PT/OT evaluation Diabetes mellitus poorly controlled- Continue Levemir 15 units subcu at bedtime Placed on Accu-Cheks before meals and at bedtime with NovoLog coverage per scale Most recent hemoglobin A1c on 09/08 was 10.6 CAD/hypertension- Continue clonidine, lisinopril, metoprolol succinate, aspirin and Plavix Remaining orders and notations as noted Resident Activity Tracking Resident Involvement: Resident Care Provided Care Provided: Adult Hospital Medicine (1) Chronic pain Chronic pain type: other chronic pain Qualified Code(s): G89.29 - Other chronic pain (2) Fall from standing Encounter type: initial encounter Qualified Code(s): W19.XXXA - Unspecified fall, initial encounter
[2020-11-03] MEDS ORDERED: PHARMACY GLYCEMIC MGMT CONSULT PRN (23:24)
[2020-11-03] MEDS: SODIUM CHLORIDE 0.9% 1000ML 1,000 ML IV SCH (23:30)
[2020-11-03] MEDS ORDERED: CARBOHYDRATES FOR HYPOGLYCEMIA PO PRN (23:45)
[2020-11-03] MEDS ORDERED: DEXTROSE 50% 50 ML SYRINGE IV PRN (23:45)
[2020-11-03] MEDS ORDERED: GLUCOSE 40% GEL 15 GM TUBE PO PRN (23:45)
[2020-11-03] MEDS ORDERED: GLUCAGON FOR INJ 1 MG VIAL IM PRN (23:45)
[2020-11-03] MEDS ORDERED: GLUCOSE 10 TABS/TUBE PO PRN (23:45)
[2020-11-04] MEDS: INSULIN ASPART 100 UNITS/ML 3 ML PEN SC SCH ×5 (00:30→21:52)
[2020-11-04] MEDS ORDERED: ONDANSETRON INJ 2 MG/ML 2 ML VIAL IV PRN (03:30)
[2020-11-04] MEDS ORDERED: INSULIN ASPART 100 UNITS/ML 3 ML PEN SC SCH (04:00)
[2020-11-04] MEDS: amLODIPine BESYLATE 5 MG TAB PO SCH (07:55)
[2020-11-04] MEDS: DULoxetine HCL 60 MG CAP PO SCH (07:55)
[2020-11-04] MEDS: cloNIDine HCL 0.1 MG TAB PO SCH ×2 (07:55→21:49)
[2020-11-04] MEDS: CLOPIDOGREL BISULFATE 75 MG TAB PO SCH (07:55)
[2020-11-04] MEDS: FUROSEMIDE 40 MG TAB PO SCH (07:55)
[2020-11-04] MEDS: lisinopril 40 MG TAB PO SCH (07:55)
[2020-11-04] MEDS: ASPIRIN 81 MG ECTAB PO SCH (07:55)
[2020-11-04] MEDS: HEPARIN SOD 5,000 UNIT/0.5 ML VIAL SQ SCH ×2 (07:56→21:49)
[2020-11-04] MEDS: DICLOFENAC SOD 1% GEL 100 GM TUBE EXT SCH ×4 (07:57→21:50)
[2020-11-04] MEDS: SODIUM CHLORIDE 0.9% 1000ML 1,000 ML IV SCH (07:58)
[2020-11-04] MEDS: POLYETHYLENE (MIRALAX) 17 GM PACK PO SCH (08:24)
[2020-11-04] MEDS ORDERED: INSULIN DETEMIR FLEXPEN/FLEX TOUCH 100 UNITS/ML 3ML SC SCH (09:00)
[2020-11-04] MEDS ORDERED: PANTOprazole 40 MG TAB PO SCH (09:00)
[2020-11-04 09:27] LABS: Hematocrit (blood only) 41.5 % (37-47); Hemoglobin 13.8 g/dL (12.0-16.0); Mean Corpuscular Hemoglobin 31.3 pg (25-34); Mean Corpuscular Hgb Conc 33.3 g/dL (32-36); Mean Corpuscular Volume 94.1 fL (80-100); Mean Platelet Volume 11.2 fL (7.4-10.4); Platelet Count 213 K/uL (130-400); RDW Coefficient of Variation 13.2 % (11.5-14.5); RDW Standard Deviation 45.4 fL (36.4-46.3); Red Blood Count 4.41 M/uL (4.2-5.4)
[2020-11-04 10:06] LABS: Calcium 8.8 mg/dl (8.5-10.1); Creatinine Clr Calc Pharmacy 57.1 ml/min; Est GFR (African American) 84.3 ml/min; Est GFR (Non-African American) 72.7 ml/min; Potassium 3.9 mmol/L (3.5-5.1)
--- NOTE | 2020-11-04 14:00 | Pharmacy Report ---
Pharmacy Glycemic Short Note 2 - Date of Service November 04, 2020 - Glycemic Short BSG Results (Last 24 hours): 11/03/20 11/03/20 11/03/20 15:50 20:36 23:26 Glucose 371 H* POC Glucose 303 H* 272 H 11/04/20 11/04/20 11/04/20 04:01 08:36 09:10 Glucose 132 H POC Glucose 230 H 119 H OUTPATIENT ANTIDIABETIC REGIMEN: * Levemir 15 units SQ qam * A1c = 10.6% (09/08/20) ASSESSMENT: * Genie is a 75 yo female admitted for fall due to polypharmacy vs. deconditioning * Her home dose of Levemir 15 units SQ daily was continued on admission. Will reassess appropriateness tomorrow once fasting BSG is available * During her August 2020 admission she required an average of 87 units/day while on prednisone 20-60 mg per day * BSGs acceptable so far today. Will continue current orders and titrate insulin as needed. PLAN FOR INPATIENT GLYCEMIC CONTROL: * Basal insulin * Lantus 15 units SQ qam * Bolus insulin * NovoLog per scale ACHS or Q6hrs while NPO * Goal Range: Low 110 mg/dL - High 140 mg/dL * Correction Factor: 25 mg/dL/unit * Nutritional / Prandial insulin per carb ratio of 1 unit per 7 grams CHO consumed PLAN FOR DISCHARGE: * tbd
[2020-11-04] MEDS: HYDROmorphone HCL 2 MG TAB PO PRN ×2 (17:32→22:00)
--- NOTE | 2020-11-04 20:04 | Hospitalist Progress Note ---
Date of Service November 04, 2020 Assessment & Plan (1) Ambulatory dysfunction: Plan: 75 yo F with hx HTN, DM2, DVT, intracranial hemorrhage, Galeas's Palsy, aortic stenosis, admitted for fall from standing height and concern for deconditioning. Fall due to polypharmacy vs. deconditioning - XR feet, knees, shoulder, pelvis negative for fractures. Osteopenic bones throughout. - CT Head negative for intracranial bleed - CT Cspine negative for acute fracture/subluxation - CT Chest + A/P negative - Echo from 09/08/20 notes mild to mod aortic stenosis. - orthostatic blood pressures ordered - chronic medication list concerning for polypharmacy/oversedation that could contribute to fall - CK elevated to 1388 likely secondary to being down after the fall. gentle hydration, repeat CK in AM. - PT/OT evaluation On 11/04, CK has improved. Likely polypharmacy, and perhaps urinary retention is playing a role. will try to limit gabapentin and cymbalta and monitor. Uncontrolled DM2 - A1c 10.6 09/08 - BSG 371 in ER, with B-OH 6.92. likely mix of dehydration and hyperglycemia - PO diabetic medications held. On 15u Levemir in AM daily at home - pharmacy consult for glycemic management given labile BSG and high insulin requirements during last admission There is concern that patient is not complaint with her medications. Leukocytosis - WBC 13 with neutrophilic predominance - afebrile, hypertensive, normocardia, no indication for infection on imaging/exam - repeat CBC AM Chronic Pain? - reportedly takes hydromorphone 12 mg PO in AM, 8 mg afternoon, 8 mg PM - started on Gabapentin 100 mg TID at last admission for neuropathic aspect of pain. Could contribute to drowsiness, however med hx includes Gabapentin 600 mg TID, so less likely. - continue duloxetine 60 mg PO AM - consider pain management consult/establishment outpatient for focused control of pain medications - topical diclofenac scheduled QID application to knees rather than BID PRN HTN - markedly hypertensive >200/110 on arrival - regimen includes clonidine 0.1mg PO BID, lisinopril 40 AM, metoprolol succinate ER 100 mg HS, Lasix 40 mg AM - orthostatic vitals as above - BMP AM CAD - continue statin, plavix, asa 81 [d/c pantoprazole due to interaction and inactivation of plavix] - TTE 09/30 showing grade 1 diastolic dysfunction with elevated right ventricular pressures, mild aortic stenosis - dobutamine stress echo 09/30: negative for ischemia at 89% MPHR, no chest pain, no arrhythmia Osteopenia - consider initiation of alendronate etc. for prevention of osteoporosis and pathologic fractures in person high risk for falls Hx Cirrhosis - noted on CT A/P in august 2020, today's CT A/P noting normal contour of liver with mild central intrahepatic biliary ductal dilatation. - PT/INR WNL - platelet count WNL - Alk Phos 191, mild AST elevation to 51, normal ALT DVT ppx: heparin sq bid FEN/GI: NS @125ml/hr x 2L, Carb consistent Heart healthy diet Code Status: DNR/DNI Dispo: Med/Surg, PT/OT evaluations pending (2) Chronic pain: (3) Fall from standing: (4) Galeas's palsy: Admission and Anticipated Discharge Date Admission Date: November 03, 2020 Subjective Patient reports she wants to go home. Had discussion with son, he reorrts that she has been lying on the ground at home. He reports that she had not been on medications for a year but restarted this past month. Review of Systems Review of Systems: All systems reviewed & are unremarkable except as noted in HPI & below Physical Exam Physical Exam: Constitutional: thin elderly appearing female Eyes: left sided eyelid droop from galeas's palsy, pupils equal and reactive to light bilaterally Cardiac: RRR, no murmurs, gallops or rubs. Normal S1, S2. hypertensive. Pulm: CTA BL, no wheezes, rhonchi, crackles or rubs, moving air well throughout both lungs Abd: soft, nontender, nondistended, normal bowel sounds, no rebound or guarding Extremities: 1+ peripheral pulses, able to palpate DP but difficulty with PT BL. no edema Neuro: briefly responsive to voice, able to follow commands, lethargic PG Care Time/CCT Total # of Minutes Spent Total Time Spent with Patient: Total time spent is greater than 50% in co ordination of care (as documented) at patient's floor/unit and/or counseling patient: Coding Level of Care Code 75777 Subseq Hosp Care Lvl 3 Diagnoses Ambulatory dysfunction R26.2 Chronic pain G89.29 Chronic pain type: other chronic pain Fall from standing W19.XXXA Encounter type: initial encounter 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 Time Spent (min) 35 Comment updated son (1) Chronic pain Chronic pain type: other chronic pain Qualified Code(s): G89.29 - Other chronic pain (2) Fall from standing Encounter type: initial encounter Qualified Code(s): W19.XXXA - Unspecified fall, initial encounter
--- NOTE | 2020-11-04 21:19 | Billing Data ---
Date of Service November 04, 2020 Coding Level of Care Code 73962 Initial Inpt Care Lvl 3
[2020-11-04] MEDS: ATORVASTATIN 40 MG TAB PO SCH (21:49)
[2020-11-04] MEDS: METOPROLOL SUCC 50MG EXT REL TAB PO SCH (21:49)
[2020-11-05] MEDS: lisinopril 40 MG TAB PO SCH (08:11)
[2020-11-05] MEDS: cloNIDine HCL 0.1 MG TAB PO SCH ×2 (08:12→20:34)
[2020-11-05] MEDS: ASPIRIN 81 MG ECTAB PO SCH (08:12)
[2020-11-05] MEDS: CLOPIDOGREL BISULFATE 75 MG TAB PO SCH (08:12)
[2020-11-05] MEDS: amLODIPine BESYLATE 5 MG TAB PO SCH (08:12)
[2020-11-05] MEDS: HEPARIN SOD 5,000 UNIT/0.5 ML VIAL SQ SCH ×2 (08:12→20:35)
[2020-11-05] MEDS: FUROSEMIDE 40 MG TAB PO SCH (08:12)
[2020-11-05] MEDS: DULoxetine HCL 60 MG CAP PO SCH (08:12)
[2020-11-05] MEDS: DICLOFENAC SOD 1% GEL 100 GM TUBE EXT SCH ×4 (08:13→20:35)
[2020-11-05] MEDS: POLYETHYLENE (MIRALAX) 17 GM PACK PO SCH (08:19)
[2020-11-05] MEDS ORDERED: INSULIN DETEMIR FLEXPEN/FLEX TOUCH 100 UNITS/ML 3ML SC SCH (09:00)
[2020-11-05] MEDS: HYDROmorphone HCL 2 MG TAB PO PRN ×3 (09:09→20:35)
[2020-11-05] MEDS: INSULIN ASPART 100 UNITS/ML 3 ML PEN SC SCH ×4 (09:26→20:43)
--- NOTE | 2020-11-05 14:29 | Pharmacy Report ---
Pharmacy Glycemic Short Note 2 - Date of Service November 05, 2020 - Glycemic Short BSG Results (Last 24 hours): 11/04/20 11/04/20 11/05/20 17:18 20:20 08:22 POC Glucose 167 H 157 H 148 H 11/05/20 12:55 POC Glucose 239 H OUTPATIENT ANTIDIABETIC REGIMEN: * Levemir 15 units SQ qam * A1c = 10.6% (09/08/20) ASSESSMENT: 11/05/20: * Genie received 38 units of SQ insulin yesterday (15 units basal + 23 units bolus) * Fasting BSG slightly elevated. I will increase basal insulin 20% * Lunch BSG also elevated at 239 mg/dL. I will tighten novolog parameters. Background: * Genie is a 75 yo female admitted for fall due to polypharmacy vs. deconditioning * Her home dose of Levemir 15 units SQ daily was continued on admission. Will reassess appropriateness tomorrow once fasting BSG is available * During her August 2020 admission she required an average of 87 units/day while on prednisone 20-60 mg per day * BSGs acceptable so far today. Will continue current orders and titrate insulin as needed. PLAN FOR INPATIENT GLYCEMIC CONTROL: * Basal insulin - increase * Lantus 18 units SQ qam * Bolus insulin - tighten * NovoLog per scale ACHS or Q6hrs while NPO * Goal Range: Low 110 mg/dL - High 140 mg/dL * Correction Factor: 20 mg/dL/unit * Nutritional / Prandial insulin per carb ratio of 1 unit per 6 grams CHO consumed PLAN FOR DISCHARGE: * A1c of 10.6% is above goal, however provider notes concerns of non compliance
--- NOTE | 2020-11-05 16:54 | Hospitalist Progress Note ---
Date of Service November 05, 2020 Assessment & Plan (1) Ambulatory dysfunction: Plan: 75 yo F with hx HTN, DM2, DVT, intracranial hemorrhage, Galeas's Palsy, aortic stenosis, admitted for fall from standing height and concern for deconditioning. Fall due to polypharmacy vs. deconditioning - XR feet, knees, shoulder, pelvis negative for fractures. Osteopenic bones throughout. - CT Head negative for intracranial bleed - CT Cspine negative for acute fracture/subluxation - CT Chest + A/P negative - Echo from 09/08/20 notes mild to mod aortic stenosis. - orthostatic blood pressures ordered - chronic medication list concerning for polypharmacy/oversedation that could contribute to fall - CK elevated to 1388 likely secondary to being down after the fall. gentle hydration, repeat CK in AM. - PT/OT evaluation On 11/05, CK has improved. Likely polypharmacy, and perhaps urinary retention is playing a role. will try to limit gabapentin and cymbalta and monitor. Patient is less confused today. Awaiting insurance auth for [facility]. Updated son on Friday. Uncontrolled DM2 - A1c 10.6 09/08 - BSG 371 in ER, with B-OH 6.92. likely mix of dehydration and hyperglycemia - PO diabetic medications held. On 15u Levemir in AM daily at home - pharmacy consult for glycemic management given labile BSG and high insulin requirements during last admission There is concern that patient is not complaint with her medications. Leukocytosis - WBC 13 with neutrophilic predominance - afebrile, hypertensive, normocardia, no indication for infection on imaging/exam - repeat CBC 11, likely reactive. Chronic Pain? - reportedly takes hydromorphone 12 mg PO in AM, 8 mg afternoon, 8 mg PM - started on Gabapentin 100 mg TID at last admission for neuropathic aspect of pain. Could contribute to drowsiness, especially given that patient was off meds for a year prior to restarting. - continue duloxetine 60 mg PO AM - consider pain management consult/establishment outpatient for focused control of pain medications - topical diclofenac scheduled QID application to knees rather than BID PRN HTN - markedly hypertensive >200/110 on arrival - regimen includes clonidine 0.1mg PO BID, lisinopril 40 AM, metoprolol succinate ER 100 mg HS, Lasix 40 mg AM - orthostatic vitals as above - BMP AM CAD - continue statin, plavix, asa 81 [d/c pantoprazole due to interaction and inactivation of plavix] - TTE 09/30 showing grade 1 diastolic dysfunction with elevated right ventricular pressures, mild aortic stenosis - dobutamine stress echo 09/30: negative for ischemia at 89% MPHR, no chest pain, no arrhythmia Osteopenia - consider initiation of alendronate etc. for prevention of osteoporosis and pathologic fractures in person high risk for falls Hx Cirrhosis - noted on CT A/P in august 2020, today's CT A/P noting normal contour of liver with mild central intrahepatic biliary ductal dilatation. - PT/INR WNL - platelet count WNL - Alk Phos 191, mild AST elevation to 51, normal ALT DVT ppx: heparin sq bid FEN/GI: Carb consistent Heart healthy diet Code Status: DNR/DNI Dispo: Med/Surg, PT/OT evaluations pending (2) Chronic pain: (3) Fall from standing: (4) Galeas's palsy: Admission and Anticipated Discharge Date Admission Date: November 03, 2020 Subjective Patient reports having falls at home. She states she has bruising on her left shoulder, lashonda would like to followup with ortho as an outpatient. She also is interested in going to [facility]. Review of Systems Review of Systems: All systems reviewed & are unremarkable except as noted in HPI & below Physical Exam Physical Exam: Constitutional: thin elderly appearing female Eyes: left sided eyelid droop from galeas's palsy, pupils equal and reactive to light bilaterally Cardiac: RRR, no murmurs, gallops or rubs. Normal S1, S2. hypertensive. Pulm: CTA BL, no wheezes, rhonchi, crackles or rubs, moving air well throughout both lungs Abd: soft, nontender, nondistended, normal bowel sounds, no rebound or guarding Extremities: 1+ peripheral pulses, able to palpate DP but difficulty with PT BL. no edema Neuro:AAox2, person, place Results & Data Results & Data ([facility]) Vital Signs (Past 12 Hours) Vital Signs Temp Pulse Pulse Resp BP Pulse Ox 11/05/20 16:00 36.7 C 66 18 103/60 97 11/05/20 06:27 36.6 C 67 16 123/69 98 PG Care Time/CCT Total # of Minutes Spent Total Time Spent with Patient: Total time spent is greater than 50% in coordination of care (as documented) at patient's floor/unit and/or counseling patient: Coding Level of Care Code 27553 Subseq Hosp Care Lvl 2 Diagnoses Ambulatory dysfunction R26.2 Chronic pain G89.29 Chronic pain type: other chronic pain Fall from standing W19.XXXA Encounter type: initial encounter 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 Time Spent (min) 25 (1) Chronic pain Chronic pain type: other chronic pain Qualified Code(s): G89.29 - Other chronic pain (2) Fall from standing Encounter type: initial encounter Qualified Code(s): W19.XXXA - Unspecified fall, initial encounter
[2020-11-05] MEDS: METOPROLOL SUCC 50MG EXT REL TAB PO SCH (20:34)
[2020-11-05] MEDS: ATORVASTATIN 40 MG TAB PO SCH (20:34)
[2020-11-05] MEDS: ACETAMINOPHEN 325 MG TAB PO PRN (22:33)
[2020-11-06] MEDS: DICLOFENAC SOD 1% GEL 100 GM TUBE EXT SCH ×4 (07:50→20:36)
[2020-11-06] MEDS: lisinopril 40 MG TAB PO SCH (07:50)
[2020-11-06] MEDS: DULoxetine HCL 60 MG CAP PO SCH (07:51)
[2020-11-06] MEDS: HEPARIN SOD 5,000 UNIT/0.5 ML VIAL SQ SCH ×2 (07:51→20:36)
[2020-11-06] MEDS: CLOPIDOGREL BISULFATE 75 MG TAB PO SCH (07:51)
[2020-11-06] MEDS: FUROSEMIDE 40 MG TAB PO SCH (07:51)
[2020-11-06] MEDS: ASPIRIN 81 MG ECTAB PO SCH (07:51)
[2020-11-06] MEDS: cloNIDine HCL 0.1 MG TAB PO SCH ×2 (07:51→20:35)
[2020-11-06] MEDS: amLODIPine BESYLATE 5 MG TAB PO SCH (07:52)
[2020-11-06] MEDS: POLYETHYLENE (MIRALAX) 17 GM PACK PO SCH (07:53)
[2020-11-06] MEDS: INSULIN ASPART 100 UNITS/ML 3 ML PEN SC SCH ×4 (09:14→20:58)
[2020-11-06] MEDS: INSULIN DETEMIR FLEXPEN/FLEX TOUCH 100 UNITS/ML 3ML SC SCH (09:16)
[2020-11-06] MEDS: HYDROmorphone HCL 2 MG TAB PO PRN ×3 (09:45→19:41)
--- NOTE | 2020-11-06 13:10 | Pharmacy Report ---
Pharmacy Glycemic Short Note 2 - Date of Service November 06, 2020 - Glycemic Short BSG Results (Last 24 hours): 11/05/20 11/05/20 11/06/20 17:18 20:15 08:06 POC Glucose 154 H 176 H 209 H 11/06/20 12:17 POC Glucose 258 H OUTPATIENT ANTIDIABETIC REGIMEN: * Levemir 15 units SQ qam * A1c = 10.6% (09/08/20) ASSESSMENT: 11/06/20: * Patient received total of 51 units of insulin yesterday, of which 18 were basal insulin * Fasting elevated at 209, increased basal again today by ~20% to provide more of 50/50 split with basal/bolus * Continue same CF/CR for now 11/05/20: * Genie received 38 units of SQ insulin yesterday (15 units basal + 23 units bolus) * Fasting BSG slightly elevated. I will increase basal insulin 20% * Lunch BSG also elevated at 239 mg/dL. I will tighten novolog parameters. Background: * Genie is a 75 yo female admitted for fall due to polypharmacy vs. deconditioning * Her home dose of Levemir 15 units SQ daily was continued on admission. Will reassess appropriateness tomorrow once fasting BSG is available * During her August 2020 admission she required an average of 87 units/day while on prednisone 20-60 mg per day * BSGs acceptable so far today. Will continue current orders and titrate insulin as needed. PLAN FOR INPATIENT GLYCEMIC CONTROL: * Basal insulin - increase * Lantus 22 units SQ qam * Bolus insulin - tighten * NovoLog per scale ACHS or Q6hrs while NPO * Goal Range: Low 110 mg/dL - High 140 mg/dL * Correction Factor: 20 mg/dL/unit * Nutritional / Prandial insulin per carb ratio of 1 unit per 6 grams CHO consumed PLAN FOR DISCHARGE: * A1c of 10.6% is above goal, however provider notes concerns of non compliance
[2020-11-06] MEDS: LIDOCAINE 5% 1 PATCH TD SCH (14:48)
--- NOTE | 2020-11-06 18:23 | Hospitalist Progress Note ---
Date of Service November 06, 2020 Assessment & Plan (1) Ambulatory dysfunction: Plan: 75 yo F with hx HTN, DM2, DVT, intracranial hemorrhage, Galeas's Palsy, aortic stenosis, admitted for fall from standing height and concern for deconditioning. Fall due to polypharmacy vs. deconditioning vs dehydration given uncontrolled DM/neuropathy - XR feet, knees, shoulder, pelvis negative for fractures. Osteopenic bones throughout. - CT Head negative for intracranial bleed - CT C-spine negative for acute fracture/subluxation - CT Chest + A/P negative - Echo from 09/08/20 notes mild to mod aortic stenosis. - chronic medication list concerning for polypharmacy/oversedation that could contribute to fall -- Was started on Gabapentin 100 mg TID last admission however per review of med Rx possibly this was actually 600 mg TID - when discussing with patient she stated she uses a pill box and wasn't sure but states the gabapentin really doesn't seem to help - CK elevated to 1388 likely secondary to being down after the fall which she thinks was a few hours - improved to 656 on 11/04 - PT/OT evaluation - recommending home/home services but patient feels she need rehab and referral sent to [facility] Uncontrolled DM2 - A1c 10.6 09/08 - BSG 371 in ER, with B-OH 6.92. likely mix of dehydration and hyperglycemia - PO diabetic medications held. On 15u Levemir in AM daily at home - pharmacy consult for glycemic management given labile BSG and high insulin requirements during last admission - There is concern that patient is not complaint with her medications Leukocytosis - WBC 13 with neutrophilic predominance - afebrile, hypertensive, normocardia, no indication for infection on imaging/exam - repeat CBC 11, likely reactive - labs in AM Chronic Pain? - reportedly takes hydromorphone 12 mg PO in AM, 8 mg afternoon, 8 mg PM? - started on Gabapentin 100 mg TID at last admission for neuropathic aspect of pain. Could contribute to drowsiness, especially given that patient was off meds for a year prior to restarting - as mentioned above the home meds support 600 mg TID? - continue duloxetine 60 mg PO AM - consider pain management consult/establishment outpatient for focused control of pain medications - topical diclofenac scheduled QID application to knees rather than BID PRN; Lidoderm as well HTN - markedly hypertensive >200/110 on arrival; much improved - regimen includes clonidine 0.1mg PO BID, lisinopril 40 AM, metoprolol succinate ER 100 mg HS, Lasix 40 mg AM CAD - continue statin, plavix, asa 81 [d/c pantoprazole due to interaction and inactivation of plavix] - TTE 09/30 showing grade 1 diastolic dysfunction with elevated right ventricular pressures, mild aortic stenosis - dobutamine stress echo 09/30: negative for ischemia at 89% MPHR, no chest pain, no arrhythmia Osteopenia - consider initiation of alendronate etc. for prevention of osteoporosis and pathologic fractures in person high risk for falls Hx Cirrhosis - noted on CT A/P in august 2020, today's CT A/P noting normal contour of liver with mild central intrahepatic biliary ductal dilatation. - PT/INR WNL - platelet count WNL - Alk Phos 191, mild AST elevation to 51, normal ALT DVT ppx: heparin sq bid FEN/GI: Carb consistent Heart healthy diet Code Status: DNR/DNI Dispo: Await [facility] determination (2) Chronic pain: (3) Fall from standing: (4) Galeas's palsy: Admission and Anticipated Discharge Date Admission Date: November 03, 2020 Subjective Reports feeling achy diffusely but some improvement since admission. Continues to utilize Dilaudid for pain control. States Voltaren helps some and requested Lidoderm patches. May benefit from outpatient pain management. Per review of documents it appears she tends to be sleepy and limited on information however she is alert and oriented and conversant today. She does report she cut her toes during her fall and does have two scabs to the toes but no signs of infection or drainage at this time. Will have to monitor given her uncontrolled DM Review of Systems Review of Systems: REVIEW OF SYSTEMS General/Constitutional: Denies fever/chills ENT: Denies sore throat, trouble swallowing Cardiovascular: Denies chest pain, palpitations, edema Respiratory: Denies cough, sputum, SOB, wheezing, orthopnea GI: Denies nausea, vomiting, abdominal pain, constipation, diarrhea : Denies dysuria Musculoskeletal: + diffuse chronic pain of multiple joints Skin: + scabs to R 3rd-4th toes Physical Exam Physical Exam: PHYSICAL EXAM General Appearance: WDWN in NAD who is A&O x 3 HEENT: Head is normocephalic with mild bruising to R cheek; Hearing grossly intact; Mucous membranes moist Neck: Supple; Trachea midline; Neg JVD Heart: RRR with no M/G/R Lungs: CTA in all lung manrique bilaterally; Respirations unlabored; Neg accessory muscle use Abdomen: Soft, non-tender, non-distended; Positive BS x 4 quadrants Extremities: Capillary refill < 2 seconds; Neg cyanosis or edema Neurological: Speech clear; Gross motor/sensory function intact; Neg focal neurologic deficits Psychiatric: Appropriate mood/affect Skin: Normal Color; Warm/Dry; two small scabs, one on R 3rd and one on R 4th toe without drainage, warmth, or erythema Results & Data Results & Data ([facility]) Vital Signs (Past 12 Hours) Vital Signs Temp Pulse Resp BP Pulse Ox 11/06/20 14:47 37.2 C 65 18 108/65 97 11/06/20 07:12 36.7 C 62 16 122/55 L 97 PG Care Time/CCT Total # of Minutes Spent Total Time Spent with Patient: Total time spent is greater than 50% in coordination of care (as documented) at patient's floor/unit and/or counseling patient: Coding Level of Care Code 87454 Subseq Hosp Care Lvl 3 Diagnoses Ambulatory dysfunction R26.2 Chronic pain G89.29 Chronic pain type: other chronic pain Fall from standing W19.XXXA Encounter type: initial encounter 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 (1) Chronic pain Chronic pain type: other chronic pain Qualified Code(s): G89.29 - Other chron ic pain (2) Fall from standing Encounter type: initial encounter Qualified Code(s): W19.XXXA - Unspecified fall, initial encounter
[2020-11-06] MEDS: METOPROLOL SUCC 50MG EXT REL TAB PO SCH (20:35)
[2020-11-06] MEDS: ATORVASTATIN 40 MG TAB PO SCH (20:37)
[2020-11-07 08:08] LABS: Hematocrit (blood only) 38.3 % (37-47); Hemoglobin 13.1 g/dL (12.0-16.0); Mean Corpuscular Hgb Conc 34.2 g/dL (32-36); Mean Corpuscular Volume 90.5 fL (80-100); Platelet Count 194 K/uL (130-400); RDW Coefficient of Variation 12.9 % (11.5-14.5); RDW Standard Deviation 42.6 fL (36.4-46.3); Red Blood Count 4.23 M/uL (4.2-5.4); White Blood Count 8.03 K/uL (4.8-10.8)
[2020-11-07 08:39] LABS: BUN Creatinine Ratio 26.1 (10-20); Calcium 9.2 mg/dl (8.5-10.1); Creatinine Clr Calc Pharmacy 68.3 ml/min; Est GFR (African American) 99.5 ml/min; Est GFR (Non-African American) 85.8 ml/min; Potassium 3.8 mmol/L (3.5-5.1)
[2020-11-07] MEDS: INSULIN ASPART 100 UNITS/ML 3 ML PEN SC SCH ×4 (09:43→21:12)
[2020-11-07] MEDS: amLODIPine BESYLATE 5 MG TAB PO SCH (09:47)
[2020-11-07] MEDS: cloNIDine HCL 0.1 MG TAB PO SCH ×2 (09:48→21:11)
[2020-11-07] MEDS: ASPIRIN 81 MG ECTAB PO SCH (09:48)
[2020-11-07] MEDS: DICLOFENAC SOD 1% GEL 100 GM TUBE EXT SCH ×4 (09:49→21:08)
[2020-11-07] MEDS: CLOPIDOGREL BISULFATE 75 MG TAB PO SCH (09:49)
[2020-11-07] MEDS: FUROSEMIDE 40 MG TAB PO SCH (09:50)
[2020-11-07] MEDS: DULoxetine HCL 60 MG CAP PO SCH (09:50)
[2020-11-07] MEDS: HEPARIN SOD 5,000 UNIT/0.5 ML VIAL SQ SCH ×2 (09:52→21:08)
[2020-11-07] MEDS: LIDOCAINE 5% 1 PATCH TD SCH (09:53)
[2020-11-07] MEDS: INSULIN DETEMIR FLEXPEN/FLEX TOUCH 100 UNITS/ML 3ML SC SCH (09:54)
[2020-11-07] MEDS: lisinopril 40 MG TAB PO SCH (10:03)
[2020-11-07] MEDS: POLYETHYLENE (MIRALAX) 17 GM PACK PO SCH (10:04)
[2020-11-07] MEDS: HYDROmorphone HCL 2 MG TAB PO PRN ×2 (10:06→21:25)
--- NOTE | 2020-11-07 10:29 | Pharmacy Report ---
Pharmacy Glycemic Short Note 2 - Date of Service November 07, 2020 - Glycemic Short BSG Results (Last 24 hours): 11/06/20 11/06/20 11/06/20 12:17 17:19 17:21 Glucose POC Glucose 258 H 58 L* 61 L* 11/06/20 11/06/20 11/07/20 17:37 20:46 06:42 Glucose 113 H POC Glucose 91 120 H 11/07/20 08:02 Glucose POC Glucose 138 H OUTPATIENT ANTIDIABETIC REGIMEN: * Levemir 15 units SQ qam * A1c = 10.6% (09/08/20) ASSESSMENT: 11/07/20: * Patient received total of 56 units of insulin yesterday, of which 22 units were basal insulin * Fasting BSG 138 mg/dL - continue same basal * BSGs trending down yesterday at dinner, plan to scale back on novolog today with more basal insulin on board 11/06/20: * Patient received total of 51 units of insulin yesterday, of which 18 were basal insulin * Fasting elevated at 209, increased basal again today by ~20% to provide more of 50/50 split with basal/bolus * Continue same CF/CR for now 11/05/20: * Genie received 38 units of SQ insulin yesterday (15 units basal + 23 units bolus) * Fasting BSG slightly elevated. I will increase basal insulin 20% * Lunch BSG also elevated at 239 mg/dL. I will tighten novolog parameters. Background: * Genie is a 75 yo female admitted for fall due to polypharmacy vs. deconditioning * Her home dose of Levemir 15 units SQ daily was continued on admission. Will reassess appropriateness tomorrow once fasting BSG is available * During her August 2020 admission she required an average of 87 units/day while on prednisone 20-60 mg per day * BSGs acceptable so far today. Will continue current orders and titrate insulin as needed. PLAN FOR INPATIENT GLYCEMIC CONTROL: * Basal insulin - continue same * Lantus 22 units SQ qam * Bolus insulin * NovoLog per scale ACHS or Q6hrs while NPO * Goal Range: Low 110 mg/dL - High 140 mg/dL * Correction Factor: 30 mg/dL/unit * Nutritional / Prandial insulin per carb ratio of 1 unit per 10 grams CHO consumed PLAN FOR DISCHARGE: * A1c of 10.6% is above goal, goal <7% reasonable * Would recommend continuation of home Levemir on discharge, could consider a higher dose of Levemir 20 units once a day * For A1c >10% - guidelines recommend triple therapy with metformin + basal insulin + (GLP1-RA OR prandial insulin). Metformin XR 500 mg once daily with evening meal typically recommended as starting dose * Given history of non-compliance would try to simplify regimen as much as possible * Would ensure compliance of Levemir before adding on additional agents. Other agents could be addressed/added outpatient * Ultimately, patient would need followup outpatient for titration of insulin/diabetic regimen * Support Patient Self-Management * Healthy Lifestyle (diet, exercise, and smoking cessation) * Disease self-management (SMBG) * Prevention of complications (BP, Lipid goals, Immunizations) * Consider outpatient Diabetes Self-Management Education & Support
--- NOTE | 2020-11-07 18:55 | Hospitalist Progress Note ---
Date of Service November 07, 2020 Assessment & Plan (1) Ambulatory dysfunction: Plan: 75 yo F with hx HTN, DM2, DVT, intracranial hemorrhage, Galeas's Palsy, aortic stenosis, admitted for fall from standing height and concern for deconditioning. Fall due to polypharmacy vs. deconditioning vs dehydration given uncontrolled DM/neuropathy - XR feet, knees, shoulder, pelvis negative for fractures. Osteopenic bones throughout. - CT Head negative for intracranial bleed - CT C-spine negative for acute fracture/subluxation - CT Chest + A/P negative - Echo from 09/08/20 notes mild to mod aortic stenosis. - chronic medication list concerning for polypharmacy/oversedation that could contribute to fall -- Was started on Gabapentin 100 mg TID last admission however per review of med Rx possibly this was actually 600 mg TID - when discussing with patient she stated she uses a pill box and wasn't sure but states the gabapentin really doesn't seem to help -- Did discuss with son who states he has a service who comes in to review meds and monitor - states his mother is non-compliant with medications but he does have them reviewed. Maybe with the - CK elevated to 1388 likely secondary to being down after the fall which she thinks was a few hours - improved to 656 on 11/04 - PT/OT evaluation - recommending home/home services but patient feels she need rehab and referral sent to [facility] and a few other places - will await determination Uncontrolled DM2 - A1c 10.6 09/08 - BSG 371 in ER, with B-OH 6.92. likely mix of dehydration and hyperglycemia - PO diabetic medications held. On 15u Levemir in AM daily at home - pharmacy consult for glycemic management given labile BSG and high insulin requirements during last admission - There is concern that patient is not complaint with her medications Leukocytosis - WBC 13 with neutrophilic predominance - afebrile, hypertensive, normocardia, no indication for infection on imaging/exam - repeat CBC 11, likely reactive - labs in AM - Will repeat UA given foul smelling UA and given her intermittent confusion and drowsiness Chronic Pain? - reportedly takes hydromorphone 12 mg PO in AM, 8 mg afternoon, 8 mg PM? - started on Gabapentin 100 mg TID at last admission for neuropathic aspect of pain. Could contribute to drowsiness, especially given that patient was off meds for a year prior to restarting - as mentioned above the home meds support 600 mg TID? - continue duloxetine 60 mg PO AM - consider pain management consult/establishment outpatient for focused control of pain medications - topical diclofenac scheduled QID application to knees rather than BID PRN; Lidoderm as well HTN - markedly hypertensive >200/110 on arrival; much improved -- However was having lower BP last night and lower HR - will reduce Metoprolol to 75 mg HS and see how this trends - regimen includes clonidine 0.1mg PO BID, lisinopril 40 AM, metoprolol succinate ER 75 mg HS (recently reduced), Lasix 40 mg AM CAD - continue statin, plavix, asa 81 [d/c pantoprazole due to interaction and inactivation of plavix] - TTE 09/30 showing grade 1 diastolic dysfunction with elevated right ventricular pressures, mild aortic stenosis - dobutamine stress echo 09/30: negative for ischemia at 89% MPHR, no chest pain, no arrhythmia Osteopenia - consider initiation of alendronate etc. for prevention of osteoporosis and pathologic fractures in person high risk for falls Hx Cirrhosis - noted on CT A/P in august 2020, today's CT A/P noting normal contour of liver with mild central intrahepatic biliary ductal dilatation. - PT/INR WNL - platelet count WNL - Alk Phos 191, mild AST elevation to 51, normal ALT DVT ppx: heparin sq bid FEN/GI: Carb consistent Heart healthy diet Code Status: DNR/DNI Dispo: Await rehab determination (2) Chronic pain: (3) Fall from standing: (4) Galeas's palsy: Admission and Anticipated Discharge Date Admission Date: November 03, 2020 Subjective Reports feeling generally achy all over today. States the lidoderm and voltaren do help some. She tends to sleep a lot through the day then is not sleeping through the night. Also noted to have foul smelling urine and will recheck Review of Systems Review of Systems: REVIEW OF SYSTEMS General/Constitutional: Denies fever/chills ENT: Denies sore throat, trouble swallowing Cardiovascular: Denies chest pain, palpitations, edema Respiratory: Denies cough, sputum, SOB, wheezing, orthopnea GI: Denies nausea, vomiting, abdominal pain, constipation, diarrhea : Denies dysuria Musculoskeletal: + diffuse chronic pain of multiple joints Skin: + scabs to R 3rd-4th toes Physical Exam Physical Exam: PHYSICAL EXAM General Appearance: WDWN in NAD who is A&O x 3; drowsier today during my visit but sitting up in bedside chair HEENT: Head is normocephalic with mild bruising to R cheek; Hearing grossly intact; Mucous membranes moist Neck: Supple; Trachea midline; Neg JVD Heart: RRR with no M/G/R Lungs: CTA in all lung manrique bilaterally; Respirations unlabored; Neg accessory muscle use Abdomen: Soft, non-tender, non-distended; Positive BS x 4 quadrants Extremities: Capillary refill < 2 seconds; Neg cyanosis or edema Neurological: Speech clear; Gross motor/sensory function intact; Neg focal neurologic deficits Psychiatric: Appropriate mood/affect Skin: Normal Color; Warm/Dry; two small scabs, one on R 3rd and one on R 4th toe without drainage, warmth, or erythema Results & Data Results & Data ([facility]) Vital Signs (Past 12 Hours) Vital Signs Temp Pulse Resp BP Pulse Ox 11/07/20 15:10 36.6 C 66 16 121/82 97 11/07/20 07:35 36.8 C 58 L 16 152/67 H 95 PG Care Time/CCT Total # of Minutes Spent Total Time Spent with Patient: Total time spent is greater than 50% in coordination of care (as documented) at patient's floor/unit and/or counseling patient: Coding Level of Care Code 14040 Subseq Hosp Care Lvl 2 Diagnoses Ambulatory dysfunction R26.2 Chronic pain G89.29 Chronic pain type: other chronic pain Fall from standing W19.XXXA Encounter type: initial encounter 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 (1) Chronic pain Chronic pain type: other chronic pain Qualified Code(s): G89.29 - Other chronic pain (2) Fall from standing Encounter type: initial encounter Qualified Code(s): W19.XXXA - Unspecified fall, initial encounter
[2020-11-07] MEDS: ATORVASTATIN 40 MG TAB PO SCH (21:11)
[2020-11-07] MEDS: METOPROLOL SUCC 25MG EXT REL TAB PO SCH (21:13)
[2020-11-08 06:27] LABS: Appearance Urine Cloudy (Clear); Bacteria Urine Automated 1+ (Negative); Bilirubin Urine Negative (Negative); Blood Urine 2+ (Negative); Cast Urine Automated 0 /lpf (0-5); Color Urine Yellow; Glucose Urine UA Negative (Negative); Ketones Urine Negative (Negative); Leukocyte Esterase Urine 3+ (Negative); Nitrite Urine Positive (Negative); Protein Urine Negative (Negative); RBC Urine Automated 0-4 /hpf (0-4); Specific Gravity Urine 1.008 (1.000-1.030); Urobilinogen Urine Negative (Negative); WBC Urine Automated >30 /hpf (0-5)
[2020-11-08] MEDS: HYDROmorphone HCL 2 MG TAB PO PRN ×2 (08:59→20:10)
[2020-11-08] MEDS: INSULIN ASPART 100 UNITS/ML 3 ML PEN SC SCH ×5 (09:00→21:38)
[2020-11-08] MEDS: cloNIDine HCL 0.1 MG TAB PO SCH ×2 (09:02→20:10)
[2020-11-08] MEDS: ASPIRIN 81 MG ECTAB PO SCH (09:02)
[2020-11-08] MEDS: amLODIPine BESYLATE 5 MG TAB PO SCH (09:02)
[2020-11-08] MEDS: DULoxetine HCL 60 MG CAP PO SCH (09:03)
[2020-11-08] MEDS: FUROSEMIDE 40 MG TAB PO SCH (09:03)
[2020-11-08] MEDS: CLOPIDOGREL BISULFATE 75 MG TAB PO SCH (09:03)
[2020-11-08] MEDS: DICLOFENAC SOD 1% GEL 100 GM TUBE EXT SCH ×4 (09:03→20:05)
[2020-11-08] MEDS: INSULIN DETEMIR FLEXPEN/FLEX TOUCH 100 UNITS/ML 3ML SC SCH (09:04)
[2020-11-08] MEDS: HEPARIN SOD 5,000 UNIT/0.5 ML VIAL SQ SCH ×2 (09:04→20:11)
[2020-11-08] MEDS: lisinopril 40 MG TAB PO SCH (09:05)
[2020-11-08] MEDS: LIDOCAINE 5% 1 PATCH TD SCH (09:05)
[2020-11-08] MEDS: POLYETHYLENE (MIRALAX) 17 GM PACK PO SCH (09:08)
[2020-11-08] MEDS: levoFLOXacin 500 MG TAB PO SCH (10:23)
--- NOTE | 2020-11-08 18:03 | Hospitalist Progress Note ---
Date of Service November 08, 2020 Assessment & Plan (1) Ambulatory dysfunction: Plan: 75 yo F with hx HTN, DM2, DVT, intracranial hemorrhage, Galeas's Palsy, aortic stenosis, admitted for fall from standing height and concern for deconditioning. Fall due to polypharmacy vs. deconditioning vs dehydration given uncontrolled DM/neuropathy - XR feet, knees, shoulder, pelvis negative for fractures. Osteopenic bones throughout. - CT Head negative for intracranial bleed - CT C-spine negative for acute fracture/subluxation - CT Chest + A/P negative - Echo from 09/08/20 notes mild to mod aortic stenosis. - chronic medication list concerning for polypharmacy/oversedation that could contribute to fall -- Was started on Gabapentin 100 mg TID last admission however per review of med Rx possibly this was actually 600 mg TID? - when discussing with patient she stated she uses a pill box and wasn't sure but states the gabapentin really doesn't seem to help -- Did discuss with son who states he has a service who comes in to review meds and monitor - states his mother is non-compliant with medications but he does have them reviewed - CK elevated to 1388 likely secondary to being down after the fall which she thinks was a few hours - improved to 656 on 11/04 - PT/OT evaluation - recommending home/home services but patient feels she need rehab and referral sent to [facility] and a few other places - will await determination Uncontrolled DM2 - A1c 10.6 09/08 - BSG 371 in ER, with B-OH 6.92. likely mix of dehydration and hyperglycemia - PO diabetic medications held. On 15u Levemir in AM daily at home - pharmacy consult for glycemic management given labile BSG and high insulin requirements during last admission - There is concern that patient is not complaint with her medications Leukocytosis - WBC 13 with neutrophilic predominance - afebrile, hypertensive, normocardia, no indication for infection on imaging/exam - repeat CBC 11, likely reactive - labs in AM - Will repeat UA given foul smelling UA and given her intermittent confusion and drowsiness - found to have + bacteria with cx pending and will cover with Levaquin daily Chronic Pain? - reportedly takes hydromorphone 12 mg PO in AM, 8 mg afternoon, 8 mg PM? - started on Gabapentin 100 mg TID at last admission for neuropathic aspect of pain. Could contribute to drowsiness, especially given that patient was off meds for a year prior to restarting - as mentioned above the home meds support 600 mg TID? - continue duloxetine 60 mg PO AM - consider pain management consult/establishment outpatient for focused control of pain medications - topical diclofenac scheduled QID application to knees rather than BID PRN; Lidoderm as well HTN - markedly hypertensive >200/110 on arrival; much improved -- However was having lower BP last night and lower HR - will reduce Metoprolol to 75 mg HS and see how this trends - regimen includes clonidine 0.1mg PO BID, lisinopril 40 AM, metoprolol succinate ER 75 mg HS (recently reduced), Lasix 40 mg AM CAD - continue statin, plavix, asa 81 [d/c pantoprazole due to interaction and inactivation of plavix] - TTE 09/30 showing grade 1 diastolic dysfunction with elevated right ventricular pressures, mild aortic stenosis - dobutamine stress echo 09/30: negative for ischemia at 89% MPHR, no chest pain, no arrhythmia Osteopenia - consider initiation of alendronate etc. for prevention of osteoporosis and pathologic fractures in person high risk for falls Hx Cirrhosis - noted on CT A/P in august 2020, today's CT A/P noting normal contour of liver with mild central intrahepatic biliary ductal dilatation. - PT/INR WNL - platelet count WNL - Alk Phos 191, mild AST elevation to 51, normal ALT DVT ppx: heparin sq bid FEN/GI: Carb consistent Heart healthy diet Code Status: DNR/DNI Dispo: Await rehab determination (2) Chronic pain: (3) Fall from standing: (4) Galeas's palsy: Admission and Anticipated Discharge Date Admission Date: November 03, 2020 Subjective Continues with generalized aches. Patches and Voltaren do help some. UA suggestive of UTI and will start Abx and monitor culture Review of Systems Review of Systems: REVIEW OF SYSTEMS General/Constitutional: Denies fever/chills ENT: Denies sore throat, trouble swallowing Cardiovascular: Denies chest pain, palpitations, edema Respiratory: Denies cough, sputum, SOB, wheezing, orthopnea GI: Denies nausea, vomiting, abdominal pain, constipation, diarrhea : Denies dysuria Musculoskeletal: + diffuse chronic pain of multiple joints Skin: + scabs to R 3rd-4th toes Physical Exam Physical Exam: PHYSICAL EXAM General Appearance: WDWN in NAD who is A&O x 3 HEENT: Head is normocephalic with mild bruising to R cheek; Hearing grossly intact Neck: Supple; Trachea midline; Neg JVD Heart: RRR with no M/G/R Lungs: CTA in all lung manrique bilaterally; Respirations unlabored; Neg accessory muscle use Abdomen: Soft, non-tender, non-distended; Positive BS x 4 quadrants Extremities: Capillary refill < 2 seconds; Neg cyanosis or edema Neurological: Speech clear; Gross motor/sensory function intact; Neg focal neurologic deficits Psychiatric: Appropriate mood/affect Skin: Normal Color; Warm/Dry; two small scabs, one on R 3rd and one on R 4th toe without drainage, warmth, or erythema Results & Data Results & [facility] ([facility]) Vital Signs (Past 12 Hours) Vital Signs Temp Pulse Resp BP Pulse Ox 11/08/20 15:34 36.5 C 54 L 16 104/67 95 11/08/20 07:22 36.6 C 55 L 16 110/62 98 PG Care Time/CCT Total # of Minutes Spent Total Time Spent with Patient: Total time spent is greater than 50% in coordination of care (as documented) at patient's floor/unit and/or counseling patient: Coding Level of Care Code 87029 Subseq Hosp Care Lvl 2 Diagnoses Ambulatory dysfunction R26.2 Chronic pain G89.29 Chronic pain type: other chronic pain Fall from standing W19.XXXA Encounter type: initial encounter 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 (1) Chronic pain Chronic pain type: other chronic pain Qualified Code(s): G89.29 - Other chronic pain (2) Fall from standing Encounter type: initial encounter Qualified Code(s): W19.XXXA - Unspecified fall, initial encounter
[2020-11-08] MEDS: ATORVASTATIN 40 MG TAB PO SCH (20:10)
[2020-11-08] MEDS: METOPROLOL SUCC 25MG EXT REL TAB PO SCH (21:48)
[2020-11-08] MEDS: METOPROLOL SUCC 50MG EXT REL TAB PO SCH (21:59)
[2020-11-09 06:46] LABS: Hematocrit (blood only) 39.5 % (37-47); Hemoglobin 13.2 g/dL (12.0-16.0); Mean Corpuscular Hemoglobin 30.8 pg (25-34); Mean Corpuscular Hgb Conc 33.4 g/dL (32-36); Mean Corpuscular Volume 92.1 fL (80-100); Mean Platelet Volume 11.1 fL (7.4-10.4); Platelet Count 191 K/uL (130-400); RDW Coefficient of Variation 12.9 % (11.5-14.5); RDW Standard Deviation 43.4 fL (36.4-46.3); Red Blood Count 4.29 M/uL (4.2-5.4); White Blood Count 8.65 K/uL (4.8-10.8)
[2020-11-09 07:15] LABS: BUN Creatinine Ratio 28.9 (10-20); Calcium 9.1 mg/dl (8.5-10.1); Creatinine Clr Calc Pharmacy 51.8 ml/min; Est GFR (Non-African American) 64.7 ml/min; Potassium 4.2 mmol/L (3.5-5.1)
[2020-11-09] MEDS: INSULIN ASPART 100 UNITS/ML 3 ML PEN SC SCH ×4 (09:12→20:39)
[2020-11-09] MEDS: cloNIDine HCL 0.1 MG TAB PO SCH ×2 (09:13→20:41)
[2020-11-09] MEDS: DULoxetine HCL 60 MG CAP PO SCH (09:13)
[2020-11-09] MEDS: ASPIRIN 81 MG ECTAB PO SCH (09:13)
[2020-11-09] MEDS: amLODIPine BESYLATE 5 MG TAB PO SCH (09:13)
[2020-11-09] MEDS: CLOPIDOGREL BISULFATE 75 MG TAB PO SCH (09:13)
[2020-11-09] MEDS: HEPARIN SOD 5,000 UNIT/0.5 ML VIAL SQ SCH ×2 (09:14→20:41)
[2020-11-09] MEDS: INSULIN DETEMIR FLEXPEN/FLEX TOUCH 100 UNITS/ML 3ML SC SCH (09:15)
[2020-11-09] MEDS: DICLOFENAC SOD 1% GEL 100 GM TUBE EXT SCH ×4 (09:16→20:41)
[2020-11-09] MEDS: LIDOCAINE 5% 1 PATCH TD SCH (09:16)
[2020-11-09] MEDS: POLYETHYLENE (MIRALAX) 17 GM PACK PO SCH (09:19)
[2020-11-09] MEDS: FUROSEMIDE 20 MG TAB PO SCH (09:22)
[2020-11-09] MEDS: lisinopril 20 MG TAB PO SCH (09:22)
[2020-11-09] MEDS: HYDROmorphone HCL 2 MG TAB PO PRN ×3 (09:59→23:57)
[2020-11-09] MEDS: levoFLOXacin 500 MG TAB PO SCH (14:00)
--- NOTE | 2020-11-09 18:56 | Hospitalist Progress Note ---
Date of Service November 09, 2020 Assessment & Plan (1) Ambulatory dysfunction: Plan: 75 yo F with hx HTN, DM2, DVT, intracranial hemorrhage, Galeas's Palsy, aortic stenosis, admitted for fall from standing height and concern for deconditioning. Fall due to polypharmacy vs. deconditioning vs dehydration given uncontrolled DM/neuropathy - XR feet, knees, shoulder, pelvis negative for fractures. Osteopenic bones throughout. - CT Head negative for intracranial bleed - CT C-spine negative for acute fracture/subluxation - CT Chest + A/P negative - Echo from 09/08/20 notes mild to mod aortic stenosis. - chronic medication list concerning for polypharmacy/oversedation that could contribute to fall -- Was started on Gabapentin 100 mg TID last admission however per review of med Rx possibly this was actually 600 mg TID? - when discussing with patient she stated she uses a pill box and wasn't sure but states the gabapentin really doesn't seem to help -- Did discuss with son who states he has a service who comes in to review meds and monitor - states his mother is non-compliant with medications but he does have them reviewed - CK elevated to 1388 likely secondary to being down after the fall which she thinks was a few hours - improved to 656 on 11/04 - Currently creatinine kinase is completely resolved - PT/OT evaluation - recommending home/home services but patient feels she need rehab and referral sent to [facility] and a few other places - will await determination Uncontrolled DM2 - A1c 10.6 09/08 - BSG 371 in ER, with B-OH 6.92. likely mix of dehydration and hyperglycemia - PO diabetic medications held. On 15u Levemir in AM daily at home - pharmacy consult for glycemic management given labile BSG and high insulin requirements during last admission - There is concern that patient is not complaint with her medications Leukocytosis - RESOLVED - Found to have + bacteria with cx showing e. coli and awaiting sensitivities - will cover with Levaquin daily at this time Chronic Pain: - reportedly takes hydromorphone 12 mg PO in AM, 8 mg afternoon, 8 mg PM? - started on Gabapentin 100 mg TID at last admission for neuropathic aspect of pain. Could contribute to drowsiness, especially given that patient was off meds for a year prior to restarting - as mentioned above the home meds support 600 mg TID? - given no relief of symptoms can continue to stop this - continue duloxetine 60 mg PO AM - consider pain management consult/establishment outpatient for focused control of pain medications - topical diclofenac scheduled QID application to knees rather than BID PRN; Lidoderm as well - both seem to help her symptoms HTN - markedly hypertensive >200/110 on arrival; much improved -- However was having lower BP last night and lower HR - given the possibility of non-compliance this may be too much blood pressure medications for her and will reduce dosing - Continue Amlodipine 5 mg daily, Clonidine 0.1 mg BID, Lasix 20 mg daily, Lisinopril 20 mg daily, and Toprol XL 50 mg daily CAD - continue statin, plavix, asa 81 [d/c pantoprazole due to interaction and inactivation of plavix] - TTE 09/30 showing grade 1 diastolic dysfunction with elevated right ventricular pressures, mild aortic stenosis - dobutamine stress echo 09/30: negative for ischemia at 89% MPHR, no chest pain, no arrhythmia Osteopenia - consider initiation of alendronate etc. for prevention of osteoporosis and pathologic fractures in person high risk for falls Hx Cirrhosis - noted on CT A/P in august 2020, today's CT A/P noting normal contour of liver with mild central intrahepatic biliary ductal dilatation. - PT/INR WNL - platelet count WNL - Alk Phos 191, mild AST elevation to 51, normal ALT DVT ppx: heparin sq bid FEN/GI: Carb consistent Heart healthy diet Code Status: DNR/DNI Dispo: Await rehab determination - Discussed with son - may be worth touching base with her PCP to make sure we have a truly accurate medication list as this could easily be the biggest contributor to her fall. Concern our records may not truly reflect her medications at home; Of course may be multifactorial with neuropathy from diabetes, maybe was having some low blood pressures, and the UTI. Definitely would like to supply a completely reconciled list to patient and family to allow for easy transition with medication management. Overall patient has been doing really well here. 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 Suspect the medications could have been causing some drowsiness for her. (2) Chronic pain: (3) Fall from standing: (4) Galeas's palsy: Admission and Anticipated Discharge Date Admission Date: November 03, 2020 Subjective Patient reports feeling well today. Does not feel as achy. She is very conversant. She overall has been independent with movement. Did discuss difficulties with finding rehab facilities at the current time. We are awaiting final determination from a couple places. She is interested in home services. 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 She verbalizes no new complaints. Review of Systems Review of Systems: REVIEW OF SYSTEMS General/Constitutional: Denies fever/chills Cardiovascular: Denies chest pain, palpitations, edema Respiratory: Denies cough, sputum, SOB, wheezing, orthopnea GI: Denies nausea, vomiting, abdominal pain, constipation, diarrhea : Denies dysuria Musculoskeletal: + diffuse chronic pain of multiple joints - Improved today Skin: + scabs to R 3rd-4th toes Physical Exam Physical Exam: PHYSICAL EXAM General Appearance: WDWN in NAD who is A&O x 3 HEENT: Head is normocephalic with mild bruising to R cheek; Hearing grossly intact Neck: Supple; Trachea midline; Neg JVD Heart: RRR with no M/G/R Lungs: CTA in all lung manrique bilaterally; Respirations unlabored; Neg accessory muscle use Abdomen: Soft, non-tender, non-distended; Positive BS x 4 quadrants Extremities: Neg cyanosis or edema Neurological: Speech clear; Gross motor/sensory function intact; Neg focal neurologic deficits Psychiatric: Appropriate mood/affect Skin: Normal Color; Warm/Dry; two small scabs, one on R 3rd and one on R 4th toe without drainage, warmth, or erythema Results & Data Results & Data ([facility]) Vital Signs (Past 12 Hours) Vital Signs Temp Pulse Pulse Resp BP BP Pulse Ox 11/09/20 15:56 36.5 C 60 22 111/60 96 11/09/20 07:31 36.5 C 57 L 16 93/54 L 96 PG Care Time/CCT Total # of Minutes Spent Total Time Spent with Patient: Total time spent is greater than 50% in coordination of care (as documented) at patient's floor/unit and/or counseling patient: Coding Level of Care Code 51412 Subseq Hosp Care Lvl 3 Diagnoses Ambulatory dysfunction R26.2 Chronic pain G89.29 Chronic pain type: other chronic pain Fall from standing W19.XXXA Encounter type: initial encounter 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 (1) Chronic pain Chronic pain type: other chronic pain Qualified Code(s): G89.29 - Other chronic pain (2) Fall from standing Encounter type: initial encounter Qualified Code(s): W19.XXXA - Unspecified fall, initial encounter
[2020-11-09] MEDS: ACETAMINOPHEN 325 MG TAB PO PRN ×2 (19:23→23:56)
[2020-11-09] MEDS: ATORVASTATIN 40 MG TAB PO SCH (20:39)
[2020-11-09] MEDS: METOPROLOL SUCC 50MG EXT REL TAB PO SCH (20:42)
[2020-11-09] MEDS: MELATONIN 3 MG TAB PO PRN (23:57)
[2020-11-10] MEDS: HYDROmorphone HCL 2 MG TAB PO PRN (06:06)
[2020-11-10] MEDS: ACETAMINOPHEN 325 MG TAB PO PRN (06:06)
[2020-11-10] MEDS ORDERED: INSULIN ASPART 100 UNITS/ML 3 ML PEN SC SCH (07:30)
[2020-11-10] MEDS: POLYETHYLENE (MIRALAX) 17 GM PACK PO SCH (09:26)
[2020-11-10] MEDS: ASPIRIN 81 MG ECTAB PO SCH (09:27)
[2020-11-10] MEDS: CLOPIDOGREL BISULFATE 75 MG TAB PO SCH (09:27)
[2020-11-10] MEDS: amLODIPine BESYLATE 5 MG TAB PO SCH (09:27)
[2020-11-10] MEDS: DULoxetine HCL 60 MG CAP PO SCH (09:27)
[2020-11-10] MEDS: lisinopril 20 MG TAB PO SCH (09:27)
[2020-11-10] MEDS: cloNIDine HCL 0.1 MG TAB PO SCH ×2 (09:27→20:49)
[2020-11-10] MEDS: FUROSEMIDE 20 MG TAB PO SCH (09:27)
[2020-11-10] MEDS: DICLOFENAC SOD 1% GEL 100 GM TUBE EXT SCH ×4 (09:28→20:49)
[2020-11-10] MEDS: LIDOCAINE 5% 1 PATCH TD SCH (09:28)
[2020-11-10] MEDS: HEPARIN SOD 5,000 UNIT/0.5 ML VIAL SQ SCH ×2 (09:29→20:50)
[2020-11-10] MEDS: INSULIN DETEMIR FLEXPEN/FLEX TOUCH 100 UNITS/ML 3ML SC SCH (09:31)
[2020-11-10] MEDS: levoFLOXacin 500 MG TAB PO SCH (11:39)
[2020-11-10] MEDS: INSULIN ASPART 100 UNITS/ML 3 ML PEN SC SCH ×3 (12:51→20:50)
--- NOTE | 2020-11-10 15:39 | Pharmacy Report ---
Pharmacy Glycemic Short Note 2 - Date of Service November 10, 2020 - Glycemic Short BSG Results (Last 24 hours): 11/09/20 11/09/20 11/10/20 17:04 20:08 08:19 POC Glucose 161 H 235 H 208 H 11/10/20 12:07 POC Glucose 201 H OUTPATIENT ANTIDIABETIC REGIMEN: * Levemir 15 units SQ qam * A1c = 10.6% (09/08/20) ASSESSMENT: 11/10/20: * Fasting BSG elevated at 208 mg/dL. Will increase basal insulin. * Post prandial BSGs continue to fluctuate indicating a need for more carb coverage 11/07/20: * Patient received total of 56 units of insulin yesterday, of which 22 units were basal insulin * Fasting BSG 138 mg/dL - continue same basal * BSGs trending down yesterday at dinner, plan to scale back on novolog today with more basal insulin on board 11/06/20: * Patient received total of 51 units of insulin yesterday, of which 18 were basal insulin * Fasting elevated at 209, increased basal again today by ~20% to provide more of 50/50 split with basal/bolus * Continue same CF/CR for now 11/05/20: * Genie received 38 units of SQ insulin yesterday (15 units basal + 23 units bolus) * Fasting BSG slightly elevated. I will increase basal insulin 20% * Lunch BSG also elevated at 239 mg/dL. I will tighten novolog parameters. Background: * Genie is a 75 yo female admitted for fall due to polypharmacy vs. deconditioning * Her home dose of Levemir 15 units SQ daily was continued on admission. Will reassess appropriateness tomorrow once fasting BSG is available * During her August 2020 admission she required an average of 87 units/day while on prednisone 20-60 mg per day * BSGs acceptable so far today. Will continue current orders and titrate insulin as needed. PLAN FOR INPATIENT GLYCEMIC CONTROL: * Basal insulin - increase * Lantus 26 units SQ qam * Bolus insulin * NovoLog per scale ACHS or Q6hrs while NPO * Goal Range: Low 110 mg/dL - High 140 mg/dL * Correction Factor: 30 mg/dL/unit * Nutritional / Prandial insulin per carb ratio of 1 unit per 6 grams CHO consumed PLAN FOR DISCHARGE: * A1c of 10.6% is above goal, goal <7% reasonable * Would recommend continuation of home Levemir on discharge, could consider a higher dose of Levemir 20 units once a day * For A1c >10% - guidelines recommend triple therapy with metformin + basal insulin + (GLP1-RA OR prandial insulin). Metformin XR 500 mg once daily with evening meal typically recommended as starting dose * Given history of non-compliance would try to simplify regimen as much as possible * Would ensure compliance of Levemir before adding on additional agents. Other agents could be addressed/added outpatient * Ultimately, patient would need followup outpatient for titration of insulin/diabetic regimen * Support Patient Self-Management * Healthy Lifestyle (diet, exercise, and smoking cessation) * Disease self-management (SMBG) * Prevention of complications (BP, Lipid goals, Immunizations) * Consider outpatient Diabetes Self-Management Education & Support
--- NOTE | 2020-11-10 19:41 | Hospitalist Progress Note ---
Date of Service November 10, 2020 Assessment & Plan (1) Ambulatory dysfunction: Plan: 75 yo F with hx HTN, DM2, DVT, intracranial hemorrhage, Galeas's Palsy, aortic stenosis, admitted for fall from standing height and concern for deconditioning. Fall due to polypharmacy vs. deconditioning vs dehydration given uncontrolled DM/neuropathy - XR feet, knees, shoulder, pelvis negative for fractures. Osteopenic bones throughout. - CT Head negative for intracranial bleed - CT C-spine negative for acute fracture/subluxation - CT Chest + A/P negative - Echo from 09/08/20 notes mild to mod aortic stenosis. - chronic medication list concerning for polypharmacy/oversedation that could contribute to fall -- Was started on Gabapentin 100 mg TID last admission however per review of med Rx possibly this was actually 600 mg TID? - when discussing with patient she stated she uses a pill box and wasn't sure but states the gabapentin really doesn't seem to help -- Did discuss with son who states home health aide who comes in to review meds and monitor - states his mother is non-compliant with medications but he does have them reviewed - CK elevated to 1388 likely secondary to being down after the fall which she thinks was a few hours - improved to 656 on 11/04 - Currently creatinine kinase is completely resolved - PT/OT evaluation - recommending home/home services Uncontrolled DM2 - A1c 10.6 09/08 - BSG 371 in ER, with B-OH 6.92. likely mix of dehydration and hyperglycemia - PO diabetic medications held. On 15u Levemir in AM daily at home - pharmacy consult for glycemic management given labile BSG and high insulin requirements during last admission - There is concern that patient is not complaint with her medications Leukocytosis - RESOLVED - Found to have + bacteria with cx showing pansensitive e. coli - will cover with Levaquin daily at this time x 2 more days Chronic Pain: - reportedly takes hydromorphone 12 mg PO in AM, 8 mg afternoon, 8 mg PM? - started on Gabapentin 100 mg TID at last admission for neuropathic aspect of pain. Could contribute to drowsiness, especially given that patient was off meds for a year prior to restarting - as mentioned above the home meds support 600 mg TID? - given no relief of symptoms can continue to stop this - continue duloxetine 60 mg PO AM - consider pain management consult/establishment outpatient for focused control of pain medications - topical diclofenac scheduled QID application to knees rather than BID PRN; Lidoderm as well - both seem to help her symptoms HTN - markedly hypertensive >200/110 on arrival; much improved with intermittent lows -- Having intermittent lower BPs and lower HR - given the possibility of non-compliance this may be too much blood pressure medications for her and will reduce dosing - Will hold some BP medications - will obtain list of current medications from PCP to better streamline her regimen - would prefer slightly higher blood pressures than lower to prevent falls CAD - continue statin, plavix, asa 81 [d/c pantoprazole due to interaction and inactivation of plavix] - TTE 09/30 showing grade 1 diastolic dysfunction with elevated right ventricular pressures, mild aortic stenosis - dobutamine stress echo 09/30: negative for ischemia at 89% MPHR, no chest pain, no arrhythmia Osteopenia - consider initiation of alendronate etc. for prevention of osteoporosis and pathologic fractures in person high risk for falls Hx Cirrhosis - noted on CT A/P in august 2020, today's CT A/P noting normal contour of liver with mild central intrahepatic biliary ductal dilatation. - PT/INR WNL - platelet count WNL - Alk Phos 191, mild AST elevation to 51, normal ALT DVT ppx: heparin sq bid FEN/GI: Carb consistent Heart healthy diet Code Status: DNR/DNI Dispo: Await rehab determination - Discussed with son - will touch base with her PCP to make sure we have a truly accurate medication list as this could easily be the biggest contributor to her fall. Concern our records may not truly reflect her medications at home; Of course may be multifactorial with neuropathy from diabetes, maybe was having some low blood pressures, and the UTI. Definitely would like to supply a completely reconciled list to patient and family to allow for easy transition with medication management. Overall patient has been doing really well here. 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 Suspect the medications could have been causing some drowsiness for her. (2) Chronic pain: (3) Fall from standing: (4) Galeas's palsy: Admission and Anticipated Discharge Date Admission Date: November 03, 2020 Subjective Reports feeling well today. Not too achy today. I did wake her up from a nap but is alert and oriented without signs of confusion. Blood pressure was lower today and will hold BP medications. Will obtain her outpatient medication list to better streamline her care as medications may be the issue with confusion Review of Systems Review of Systems: REVIEW OF SYSTEMS General/Constitutional: Denies fever/chills Cardiovascular: Denies chest pain, palpitations, edema Respiratory: Denies cough, sputum, SOB, wheezing, orthopnea GI: Denies nausea, vomiting, abdominal pain, constipation, diarrhea : Denies dysuria Musculoskeletal: + diffuse chronic pain of multiple joints - minimal today Skin: + scabs to R 3rd-4th toes Physical Exam Physical Exam: PHYSICAL EXAM General Appearance: WDWN in NAD who is A&O x 3 HEENT: Head is normocephalic; Hearing grossly intact Neck: Supple; Trachea midline; Neg JVD Heart: RRR with no M/G/R Lungs: CTA in all lung manrique bilaterally; Respirations unlabored; Neg accessory muscle use Abdomen: Soft, non-tender, non-distended; Positive BS x 4 quadrants Extremities: Neg cyanosis or edema Neurological: Speech clear; Gross motor/sensory function intact; Neg focal neurologic deficits Psychiatric: Appropriate mood/affect Skin: Normal Color; Warm/Dry; two small scabs, one on R 3rd and one on R 4th toe without drainage, warmth, or erythema Results & Data Results & Data ([facility]) Vital Signs (Past 12 Hours) Vital Signs Temp Pulse Resp BP BP Pulse Ox 11/10/20 15:00 36.5 C 55 L 16 86/53 L 78/46 L 95 11/10/20 07:40 36.6 C 54 L 18 147/59 H 96 PG Care Time/CCT Total # of Minutes Spent Total Time Spent with Patient: Total time spent is greater than 50% in coordination of care (as documented) at patient's floor/unit and/or counseling patient: Coding Level of Care Code 57027 Subseq Hosp Care Lvl 2 Diagnoses Ambulatory dysfunction R26.2 Chronic pain G89.29 Chronic pain type: other chronic pain Fall from standing W19.XXXA Encounter type: initial encounter 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 (1) Chronic pain Chronic pain type: other chronic pain Qualified Code(s): G89.29 - Other chronic pain (2) Fall from standing Encounter type: initial encounter Qualified Code(s): W19.XXXA - Unspecified fall, initial encounter
[2020-11-10] MEDS: ATORVASTATIN 40 MG TAB PO SCH (20:49)
[2020-11-11] MEDS: INSULIN ASPART 100 UNITS/ML 3 ML PEN SC SCH ×4 (10:07→20:27)
[2020-11-11] MEDS: ASPIRIN 81 MG ECTAB PO SCH (10:08)
[2020-11-11] MEDS: DULoxetine HCL 60 MG CAP PO SCH (10:09)
[2020-11-11] MEDS: LIDOCAINE 5% 1 PATCH TD SCH (10:09)
[2020-11-11] MEDS: levoFLOXacin 500 MG TAB PO SCH (10:10)
[2020-11-11] MEDS: DICLOFENAC SOD 1% GEL 100 GM TUBE EXT SCH ×4 (10:11→20:27)
[2020-11-11] MEDS: INSULIN DETEMIR FLEXPEN/FLEX TOUCH 100 UNITS/ML 3ML SC SCH (10:14)
[2020-11-11] MEDS: POLYETHYLENE (MIRALAX) 17 GM PACK PO SCH (10:14)
[2020-11-11] MEDS: CLOPIDOGREL BISULFATE 75 MG TAB PO SCH (10:25)
[2020-11-11] MEDS: HEPARIN SOD 5,000 UNIT/0.5 ML VIAL SQ SCH ×2 (10:25→20:27)
[2020-11-11] MEDS ORDERED: ASPIRIN 325 MG ECTAB PO ONE (13:17)
[2020-11-11] MEDS: HYDROmorphone HCL 2 MG TAB PO PRN ×3 (13:56→21:53)
[2020-11-11] MEDS: ACETAMINOPHEN 325 MG TAB PO PRN (16:55)
--- NOTE | 2020-11-11 17:57 | Hospitalist Progress Note ---
Date of Service November 11, 2020 Assessment & Plan (1) Ambulatory dysfunction: Plan: 75 yo F with hx HTN, DM2, DVT, intracranial hemorrhage, Galeas's Palsy, aortic stenosis, admitted for fall from standing height and concern for deconditioning. Fall due to polypharmacy vs. deconditioning vs dehydration given uncontrolled DM/neuropathy - XR feet, knees, shoulder, pelvis negative for fractures. Osteopenic bones throughout. - CT Head negative for intracranial bleed - CT C-spine negative for acute fracture/subluxation - CT Chest + A/P negative - Echo from 09/08/20 notes mild to mod aortic stenosis. - Obtained PCP medication list - patient feels she takes too many medications then ultimately doesn't take them - I think simplifying her regimen will serve the most benefit to support compliance as well, it seems that while taking multiple prescribed medications her BP has been low to low normal which may cause issues when she is taking these medications - CK elevated to 1388 likely secondary to being down after the fall which she thinks was a few hours - improved to 656 on 11/04 - Currently creatinine kinase is completely resolved - PT/OT evaluation - recommending home/home services Uncontrolled DM2 - A1c 10.6 09/08 - BSG 371 in ER, with B-OH 6.92. likely mix of dehydration and hyperglycemia - PO diabetic medications held. On 15u Levemir in AM daily at home - pharmacy consult for glycemic management given labile BSG and high insulin requirements during last admission - There is concern that patient is not complaint with her medications Leukocytosis - RESOLVED - Found to have + bacteria with cx showing pansensitive e. coli - will cover with Levaquin daily at this time x 2 more days Chronic Pain: - reportedly takes hydromorphone 12 mg PO in AM, 8 mg afternoon, 8 mg PM? - started on Gabapentin 100 mg TID at last admission for neuropathic aspect of pain. Could contribute to drowsiness, especially given that patient was off meds for a year prior to restarting - the home meds support 600 mg TID? - given no relief of symptoms can continue to remove this - continue duloxetine 60 mg PO AM - consider pain management consult/establishment outpatient for focused control of pain medications - topical diclofenac scheduled QID application to knees rather than BID PRN; Lidoderm as well - both seem to help her symptoms HTN - markedly hypertensive >200/110 on arrival; much improved with intermittent lows -- Having intermittent lower BPs and lower HR - given the possibility of non- compliance this may be too much blood pressure medications for her and will reduce dosing - Obtained list of current medications from PCP to better streamline her regimen - would prefer slightly higher blood pressures than lower to prevent falls -- Appears she was converted to Coreg instead of Metoprolol CAD - continue statin, plavix, asa 81 [d/c pantoprazole due to interaction and inactivation of plavix] - TTE 09/30 showing grade 1 diastolic dysfunction with elevated right ventricular pressures, mild aortic stenosis - dobutamine stress echo 09/30: negative for ischemia at 89% MPHR, no chest pain, no arrhythmia Osteopenia - consider initiation of alendronate etc. for prevention of osteoporosis and pathologic fractures in person high risk for falls Hx Cirrhosis - noted on CT A/P in august 2020, today's CT A/P noting normal contour of liver with mild central intrahepatic biliary ductal dilatation. - PT/INR WNL - platelet count WNL - Alk Phos 191, mild AST elevation to 51, normal ALT DVT ppx: heparin sq bid FEN/GI: Carb consistent Heart healthy diet Code Status: DNR/DNI Dispo: Await rehab determination - Discussed with son - will simplify and streamline medications and get close PCP follow-up. Concern our records may not truly reflect her medications at home; Of course may be multifactorial with neuropathy from diabetes, maybe was having some low blood pressures, and the UTI. Definitely would like to supply a completely reconciled list to patient and family to allow for easy transition with medication management. Overall patient has been doing really well here. 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 Would like an agency to come more in the afternoon which they can come on Friday - discussed with patient and son for plans of discharge tomorrow (2) Chronic pain: (3) Fall from standing: (4) Galeas's palsy: Admission and Anticipated Discharge Date Admission Date: November 03, 2020 Subjective Reports doing well. Not as achy compared to when she came in. Obtained her medication list from her PCP practice. BPs have been running low normal and sometimes low. She feels she takes too many medications and then will not take them. I think simplyfing her regimen will serve the largest benefit to promote compliance and safety Review of Systems Review of Systems: REVIEW OF SYSTEMS General/Constitutional: Denies fever/chills Cardiovascular: Denies chest pain, palpitations, edema Respiratory: Denies cough, sputum, SOB, wheezing, orthopnea GI: Denies nausea, vomiting, abdominal pain, constipation, diarrhea : Denies dysuria Musculoskeletal: + diffuse chronic pain of multiple joints - minimal today Skin: + scabs to R 3rd-4th toes Physical Exam Physical Exam: PHYSICAL EXAM General Appearance: WDWN in NAD who is A&O x 3 HEENT: Head is normocephalic; Hearing grossly intact Neck: Supple; Trachea midline; Neg JVD Heart: RRR with no M/G/R Lungs: CTA in all lung manrique bilaterally; Respirations unlabored; Neg accessory muscle use Abdomen: Soft, non-tender, non-distended; Positive BS x 4 quadrants Extremities: Neg cyanosis or edema Neurological: Speech clear; Gross motor/sensory function intact; Neg focal neurologic deficits Psychiatric: Appropriate mood/affect Skin: Normal Color; Warm/Dry; two small scabs, one on R 3rd and one on R 4th toe without drainage, warmth, or erythema, or necrosis Results & Data Results & Data ([facility]) Vital Signs (Past 12 Hours) Vital Signs Temp Pulse Resp BP Pulse Ox 11/11/20 16:00 37.1 C 76 18 125/72 99 11/11/20 07:25 37.1 C 69 18 111/63 100 PG Care Time/CCT Total # of Minutes Spent Total Time Spent with Patient: Total time spent is greater than 50% in coordination of care (as documented) at patient's floor/unit and/or counseling patient: Coding Level of Care Code 83746 Subseq Hosp Care Lvl 3 Diagnoses Ambulatory dysfunction R26.2 Chronic pain G89.29 Chronic pain type: other chronic pain Fall from standing W19.XXXA Encounter type: initial encounter 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 (1) Chronic pain Chronic pain type: other chronic pain Qualified Code(s): G89.29 - Other chronic pain (2) Fall from standing Encounter type: initial encounter Qualified Code(s): W19.XXXA - Unspecified fall, initial encounter
[2020-11-11] MEDS: cloNIDine HCL 0.1 MG TAB PO SCH (20:27)
[2020-11-11] MEDS: MELATONIN 3 MG TAB PO PRN (21:53)
[2020-11-11] MEDS ORDERED: DOCUSATE SODIUM 100 MG CAP PO ONE (22:05)
[2020-11-11] MEDS ORDERED: bisacodyL 5 MG TABEC PO ONE (22:05)
[2020-11-12] MEDS: INSULIN ASPART 100 UNITS/ML 3 ML PEN SC SCH ×3 (09:15→18:23)
[2020-11-12] MEDS: ASPIRIN 81 MG ECTAB PO SCH (09:16)
[2020-11-12] MEDS: DULoxetine HCL 60 MG CAP PO SCH (09:16)
[2020-11-12] MEDS: DICLOFENAC SOD 1% GEL 100 GM TUBE EXT SCH ×3 (09:17→17:54)
[2020-11-12] MEDS: HEPARIN SOD 5,000 UNIT/0.5 ML VIAL SQ SCH (09:17)
[2020-11-12] MEDS: CLOPIDOGREL BISULFATE 75 MG TAB PO SCH (09:18)
[2020-11-12] MEDS: cloNIDine HCL 0.1 MG TAB PO SCH (09:19)
[2020-11-12] MEDS: LIDOCAINE 5% 1 PATCH TD SCH (09:19)
[2020-11-12] MEDS: INSULIN DETEMIR FLEXPEN/FLEX TOUCH 100 UNITS/ML 3ML SC SCH (09:22)
[2020-11-12] MEDS: POLYETHYLENE (MIRALAX) 17 GM PACK PO SCH (09:23)
[2020-11-12 10:20] LABS: Hematocrit (blood only) 41.2 % (37-47); Hemoglobin 13.8 g/dL (12.0-16.0); Mean Corpuscular Hemoglobin 30.8 pg (25-34); Mean Corpuscular Hgb Conc 33.5 g/dL (32-36); Mean Platelet Volume 10.8 fL (7.4-10.4); Platelet Count 227 K/uL (130-400); RDW Coefficient of Variation 13.1 % (11.5-14.5); Red Blood Count 4.48 M/uL (4.2-5.4); White Blood Count 8.88 K/uL (4.8-10.8)
[2020-11-12] MEDS: HYDROmorphone HCL 2 MG TAB PO PRN ×2 (10:27→15:09)
[2020-11-12] MEDS: levoFLOXacin 500 MG TAB PO SCH (10:28)
[2020-11-12 10:40] LABS: BUN Creatinine Ratio 26.1 (10-20); Calcium 9.4 mg/dl (8.5-10.1); Creatinine Clr Calc Pharmacy 52.4 ml/min; Est GFR (African American) 67.4 ml/min; Est GFR (Non-African American) 58.2 ml/min; Potassium 4.3 mmol/L (3.5-5.1)
[2020-11-12] MEDS ORDERED: ASPIRIN 325 MG ECTAB PO SCH (15:15)
--- NOTE | 2020-11-12 20:25 | Discharge Summary ---
Date of Service November 12, 2020 Admission HPI Per Admitting Provider 75 yo F brought to ER by ambulance, reportedly found laying on the floor by her bed. Pt responsive to direct questions but otherwise very lethargic and quickly falls asleep. Per nursing, has been this way the entirety of her time in the ER. HPI limited due to above decreased responsiveness. Review of chart shows recent admission for back pain from 09/07/20 - 09/13/20. Descriptions of her involvement with hospitalist team discussions appear to be similar to my experience in ER today, possibly is patient baseline. Principal Diagnosis Fall - Suspect multifactorial between UTI, Low BP, Polypharmacy, Deconditioning Discharge Exam PHYSICAL EXAM General Appearance: WDWN in NAD who is A&O x 3 HEENT: Head is normocephalic; Hearing grossly intact Neck: Supple; Trachea midline; Neg JVD Heart: RRR with no M/G/R Lungs: CTA in all lung manrique bilaterally; Respirations unlabored; Neg accessory muscle use Abdomen: Soft, non-tender, non-distended; Positive BS x 4 quadrants Extremities: Neg cyanosis or edema Neurological: Speech clear; Gross motor/sensory function intact; Neg focal neurologic deficits Psychiatric: Appropriate mood/affect Skin: Normal Color; Warm/Dry; two small scabs, one on R 3rd and one on R 4th toe without drainage, warmth, erythema, or necrosis Discharge Data Allergies Allergy/AdvReac Type Severity Reaction Status Date / Time Cephalosporins Allergy Intermediate RINGING OF Verified 11/03/20 16:37 EARS,FALLING BALANCE ISSUES prochlorperazine Allergy Intermediate STROKE Verified 11/03/20 16:37 LIKE SYMPTOMS, CAN'T TALK linezolid AdvReac Intermediate diarrhea,vo Verified 11/03/20 16:37 miting tramadol AdvReac Intermediate UNSTEADY Verified 11/03/20 16:37 ON FEET, HYPERACTIVITY morphine AdvReac Unknown NOT Verified 11/03/20 16:37 EFFECTIVE Consultations 11/03/20 19:57 ED Decision to Admit Stat Ordered Studies Chest X-Ray 11/03/20 15:22 SINGLE VIEW CHEST CLINICAL HISTORY: Atypical chest pain. FINDINGS: An AP, portable, upright chest radiograph is compared to study dated 09/07/2020. Correlation is made with chest CT dated 10/12/2019. The heart is mildly enlarged. The pulmonary vasculature is noncongested. Foci of scarring/atelectasis are noted in the left midlung. There is mild elevation of the left hemidiaphragm. No airspace consolidation or large pleural effusion is seen. There is no pneumothorax. The skeletal structures are osteopenic. Chronic deformity of the left shoulder is unchanged from previous. Arthritic change is also seen in the right shoulder and thoracic spine. IMPRESSION: No active disease in the chest. ACT 112: Negative or not required by law. Electronically signed by: Stuart Shaw M.D. 11/03/2020 5:15 PM Abdomen/Pelvis CT 11/03/20 15:25 CT SCAN OF THE CHEST, ABDOMEN, AND PELVIS WITH IV CONTRAST CLINICAL HISTORY: Trauma. Fall. COMPARISON STUDY: Chest CT dated 10/12/2019. Abdominal CT dated 09/07/2020. TECHNIQUE: Following the IV administration of 94 of Optiray 320, CT scan of the chest, abdomen, and pelvis was performed from the thoracic inlet to the proximal femora. Images are reviewed in the axial, sagittal, and coronal planes. IV contrast was administered without complication. A dose lowering technique was utilized adhering to the principles of ALARA. The examinations are degraded by motion artifact. CT DOSE: 2352.15 mGy.cm FINDINGS: CHEST: Thyroid: Imaged portions of the thyroid gland are normal in size and attenuation. Thoracic aorta: There is atherosclerotic calcification of the thoracic aorta , which is normal in caliber and demonstrates standard 3-vessel arch anatomy. No dissection is seen. Pulmonary vasculature: The pulmonary trunk is normal in caliber. There are no filling defects identified in the central pulmonary vessels to indicate pulmonary embolus. Note that this examination was not protocoled for evaluation of the pulmonary arteries. Heart: The heart is enlarged and without pericardial effusion. The coronary arteries and mitral annulus are densely calcified. Lungs and pleural spaces: Evaluation of the lung parenchyma is compromised by motion artifact. Foci of linear atelectasis are seen throughout both lungs, greatest in the left upper lobe and lingula. There is no airspace consolidation typical for pneumonia, pleural effusion, or pneumothorax. The trachea and central airways appear clear. Mediastinum: There is no mediastinal hematoma or lymphadenopathy. Priscila: Clear. Axillae: There is no axillary lymphadenopathy. Bony thorax: The skeletal structures are osteopenic. The bony thorax appears intact. No lytic or blastic lesions are identified. Advanced chronic deformity of the left shoulder is unchanged from previous. ABDOMEN AND PELVIS: Liver: The contrast-enhanced liver is normal in size, contour, and attenuation. There is mild central intrahepatic biliary ductal dilatation. The hepatic veins and portal veins are patent. Gallbladder: Surgically absent. Spleen: Normal in size and attenuation. Pancreas: Moderately atrophic and grossly unremarkable. Adrenal glands: Unremarkable. Kidneys: The contrast enhanced kidneys demonstrate mild cortical atrophy and are without hydronephrosis. The kidneys enhance symmetrically. Abdominal vasculature: The abdominal aorta is normal in course and caliber noting advanced atherosclerotic calcification. An IVC filter is in place. Stomach and bowel: There is a small hiatal hernia. There is moderate constipation. No bowel obstruction is seen. There is mild diverticulosis of the colon without CT evidence of acute diverticulitis. The appendix is not identified and reported surgically absent. Peritoneum: There is no intraperitoneal free air or abdominal ascites. Lymphadenopathy: None. Pelvic viscera: Evaluation of the pelvis is degraded by streak artifact from a right hip arthroplasty. The bladder is markedly distended but otherwise normal in appearance. The uterus is surgically absent. No adnexal lesion is seen. Skeletal structures: The skeletal structures are osteopenic. The lumbosacral spine, bony pelvis, and proximal femora appear intact. There is moderate lumbosacral spondylosis. No lytic or blastic lesions are seen. A right hip arthroplasty is in place. IMPRESSION: 1. There is no acute posttraumatic intrathoracic abnormality. 2. There is no airspace consolidation, pleural effusion, or pneumothorax. 3. Cardiomegaly. 4. There is no evidence of solid organ injury in the abdomen or pelvis. 5. Marked bladder distention. 6. Moderate constipation. 7. Additional findings as above. ACT 112: Negative or not required by law. Electronically signed by: Stuart Shaw M.D. 11/03/2020 6:[address] 11/03/20 15:25 CT SCAN OF THE CERVICAL SPINE CLINICAL HISTORY: Trauma. Fall. COMPARISON STUDY: CT of the cervical spine dated 10/12/2019. TECHNIQUE: CT scan of the cervical spine is performed from the skull base to the upper thoracic spine. Images are reviewed in the axial, sagittal, and coronal planes. IV contrast was not administered for this examination. A dose lowering technique was utilized adhering to the principles of ALARA. FINDINGS: Skeletal structures: The skeletal structures are osteopenic. There is no evidence of fracture or subluxation involving the cervical spine. Vertebral body height and alignment are maintained. There is straightening of the cervical lordosis. Anterior osteophytes are seen throughout. The odontoid process and lateral masses are intact. The atlantoaxial articulation is preserved noting advanced productive degenerative change. The spinous processes appear intact. There is moderate to advanced multilevel cervical spondylosis. Uncovertebral and facet arthropathy contribute to neural foraminal stenosis at several levels. Intervertebral discs: There is moderate to severe disc space narrowing at C4-C5, C5-C6, and C6-C7. Central canal: Large posterior disc osteophyte complexes at C4-C5, C5-C6, and C6-C7 likely contribute to multilevel acquired compromise of the central canal. Soft tissues: The prevertebral and paraspinous soft tissues are within normal limits. There is atherosclerotic calcification of the carotid bulbs. The thyroid gland is atrophic. Calvarium: The visualized calvarium at the skull base appears intact. Brain parenchyma: Partially visualized brain parenchyma at the skull base is within normal limits. Sinuses and mastoids: The visualized paranasal sinuses are clear. The mastoid air cells are well pneumatized. Lung apices: Clear as visualized. IMPRESSION: 1. There is no evidence of fracture or subluxation involving the cervical spine. 2. Osteopenia and spondylotic change as above. ACT 112: Negative or not required by law. Electronically signed by: Stuart Shaw M.D. 11/03/2020 6:[address] 11/03/20 15:25 CT SCAN OF THE CHEST, ABDOMEN, AND PELVIS WITH IV CONTRAST CLINICAL HISTORY: Trauma. Fall. COMPARISON STUDY: Chest CT dated 10/12/2019. Abdominal CT dated 09/07/2020. TECHNIQUE: Following the IV administration of 94 of Optiray 320, CT scan of the chest, abdomen, and pelvis was performed from the thoracic inlet to the proximal femora. Images are reviewed in the axial, sagittal, and coronal planes. IV contrast was administered without complication. A dose lowering technique was utilized adhering to the principles of ALARA. The examinations are degraded by motion artifact. CT DOSE: 2352.15 mGy.cm FINDINGS: CHEST: Thyroid: Imaged portions of the thyroid gland are normal in size and attenuation. Thoracic aorta: There is atherosclerotic calcification of the thoracic aorta , which is normal in caliber and demonstrates standard 3-vessel arch anatomy. No dissection is seen. Pulmonary vasculature: The pulmonary trunk is normal in caliber. There are no filling defects identified in the central pulmonary vessels to indicate pulmonary embolus. Note that this examination was not protocoled for evaluation of the pulmonary arteries. Heart: The heart is enlarged and without pericardial effusion. The coronary arteries and mitral annulus are densely calcified. Lungs and pleural spaces: Evaluation of the lung parenchyma is compromised by motion artifact. Foci of linear atelectasis are seen throughout both lungs, greatest in the left upper lobe and lingula. There is no airspace consolidation typical for pneumonia, pleural effusion, or pneumothorax. The trachea and central airways appear clear. Mediastinum: There is no mediastinal hematoma or lymphadenopathy. Priscila: Clear. Axillae: There is no axillary lymphadenopathy. Bony thorax: The skeletal structures are osteopenic. The bony thorax appears intact. No lytic or blastic lesions are identified. Advanced chronic deformity of the left shoulder is unchanged from previous. ABDOMEN AND PELVIS: Liver: The contrast-enhanced liver is normal in size, contour, and attenuation. There is mild central intrahepatic biliary ductal dilatation. The hepatic veins and portal veins are patent. Gallbladder: Surgically absent. Spleen: Normal in size and attenuation. Pancreas: Moderately atrophic and grossly unremarkable. Adrenal glands: Unremarkable. Kidneys: The contrast enhanced kidneys demonstrate mild cortical atrophy and are without hydronephrosis. The kidneys enhance symmetrically. Abdominal vasculature: The abdominal aorta is normal in course and caliber noting advanced atherosclerotic calcification. An IVC filter is in place. Stomach and bowel: There is a small hiatal hernia. There is moderate constipation. No bowel obstruction is seen. There is mild diverticulosis of the colon without CT evidence of acute diverticulitis. The appendix is not identified and reported surgically absent. Peritoneum: There is no intraperitoneal free air or abdominal ascites. Lymphadenopathy: None. Pelvic viscera: Evaluation of the pelvis is degraded by streak artifact from a right hip arthroplasty. The bladder is markedly distended but otherwise normal in appearance. The uterus is surgically absent. No adnexal lesion is seen. Skeletal structures: The skeletal structures are osteopenic. The lumbosacral spine, bony pelvis, and proximal femora appear intact. There is moderate lumbosacral spondylosis. No lytic or blastic lesions are seen. A right hip arthroplasty is in place. IMPRESSION: 1. There is no acute posttraumatic intrathoracic abnormality. 2. There is no airspace consolidation, pleural effusion, or pneumothorax. 3. Cardiomegaly. 4. There is no evidence of solid organ injury in the abdomen or pelvis. 5. Marked bladder distention. 6. Moderate constipation. 7. Additional findings as above. ACT 112: Negative or not required by law. Electronically signed by: Stuart Shaw M.D. 11/03/2020 6:[address] 11/03/20 15:25 CT SCAN OF THE BRAIN WITHOUT IV CONTRAST CLINICAL HISTORY: Fall. COMPARISON STUDY: CT of the brain dated 09/07/2020. TECHNIQUE: Unenhanced axial CT scan of the brain is performed from the vertex to the skull base. A dose lowering technique was utilized adhering to the principles of ALARA. FINDINGS: Brain parenchyma: There are age-related involutional changes noting moderate subcortical and periventricular microangiopathic change. There is no hemorrhage, mass effect, or evidence of acute territorial ischemia by CT criteria. Welch- white matter differentiation is preserved. No extra-axial fluid collection is seen. Ventricles, sulci, cisterns: Prominent secondary to involutional change. Intracranial vasculature: There is atherosclerotic calcification of the cavernous carotid and vertebral arteries. Calvarium: The skeletal structures are osteopenic. No depressed calvarial fracture is identified. Sinuses and mastoids: There is an air-fluid level in the left maxillary antrum. Mild mucosal thickening is noted in the frontal and ethmoid sinuses. The mastoid air cells are well pneumatized. Orbits: The bony orbits are grossly intact. There are bilateral ocular lens implants. IMPRESSION: There is no hemorrhage, mass effect, or evidence of acute territorial ischemia by CT criteria. ACT 112: Negative or not required by law. Electronically signed by: Stuart Shaw M.D. 11/03/2020 5:55 PM Foot X-Ray 11/03/20 15:27 LEFT FOOT 2 VIEWS CLINICAL HISTORY: Fall with left foot pain. FINDINGS: AP and crosstable lateral views of the left foot are correlated with left ankle radiographs dated 12/30/2015. The skeletal structures are osteopenic. No fracture is identified. There are large dorsal and plantar calcaneal enthesophytes. Degenerative spurring is seen along the dorsal aspect of the tarsal bones. Mild osteoarthritic change is seen at the first metatarsophalangeal joint. An os navicularis is incidentally noted. The overlying soft tissues are normal as imaged. There is atherosclerotic calcification of the regional arteries. IMPRESSION: No fracture is identified. Electronically signed by: Stuart Shaw M.D. 11/03/2020 5:12 PM Foot X-Ray 11/03/20 15:27 RIGHT FOOT 2 VIEWS CLINICAL HISTORY: Fall with right foot pain. FINDINGS: AP and crosstable lateral views of the right foot are obtained. No prior studies are available for comparison at the time of dictation. The skeletal structures are osteopenic. No fracture is seen. There are large dorsal and plantar calcaneal enthesophytes. Mild osteoarthritic change is seen at the first metatarsophalangeal joint. There is mild degenerative spurring along the dorsal aspect of the tarsal bones. Mild soft tissue swelling is suggested in the forefoot. There is atherosclerotic calcification of the regional arteries. IMPRESSION: There is no radiographic evidence of fracture. Electronically signed by: Stuart Shaw M.D. 11/03/2020 5:09 PM Knee X-Ray 11/03/20 15:27 RIGHT KNEE 3 VIEWS CLINICAL HISTORY: Fall with right knee pain. FINDINGS: AP, crosstable lateral, and sunrise views of the right knee are compared to study dated 11/07/2015. The skeletal structures are osteopenic. No fracture is seen. There is mild tricompartmental degenerative joint space narrowing. There are small marginal osteophytes and degenerative beaking of the tibial spine. Patellar enthesophytes are observed. There is no joint effusion. Prepatellar soft tissue swelling is observed. There is faint chondrocalcinosis in the medial and lateral compartments. A calcified fabella is incidentally noted. Surgical clips are seen in the upper calf. There is mild atherosclerotic calcification of the regional arteries. IMPRESSION: 1. Prepatellar soft tissue swelling with no fracture identified. 2. Osteopenia and mild degenerative change as above. Electronically signed by: Stuart Shaw M.D. 11/03/2020 5:07 PM Knee X-Ray 11/03/20 15:27 LEFT KNEE 3 VIEWS CLINICAL HISTORY: Fall. Left knee pain. FINDINGS: AP, crosstable lateral, and sunrise views of the left knee are compared to study dated 11/07/2015. The skeletal structures are osteopenic. No fracture is identified. There is mild tricompartmental degenerative joint space narrowing. Chondrocalcinosis is noted in the medial and lateral compartments. There are small marginal osteophytes and degenerative beaking of the tibial spine. Patellar enthesophytes are noted. There is no joint effusion. Mild soft tissue edema is suggested in the medial knee. Surgical clips are present in the upper calf. There is mild atherosclerotic calcification of the regional arteries. IMPRESSION: 1. Mild soft tissue swelling with no acute bony abnormality identified. 2. Osteopenia with degenerative change and chondrocalcinosis as above. Electronically signed by: Stuart Shaw M.D. 11/03/2020 5:05 PM Shoulder X-Ray 11/03/20 15:27 LEFT SHOULDER 3 VIEWS CLINICAL HISTORY: Fall with left shoulder pain. FINDINGS: 3 views of the left shoulder are compared to study dated 09/24/2019. The skeletal structures are osteopenic. There is no radiographic evidence of acute fracture or dislocation. The left humeral head is absent. Advanced chronic deformity of the left proximal humerus and glenoid is unchanged from previous with associated bony fragmentation. The acromioclavicular joint appears maintained noting mild degenerative change. The overlying soft tissues are normal as imaged. The visualized left lung parenchyma appears clear. IMPRESSION: 1. No acute fracture or dislocation is identified. 2. Unchanged chronic deformity of the left proximal humerus and glenoid. Electronically signed by: Stuart Shaw M.D. 11/03/2020 5:14 PM Hip/Pelvis X-Ray 11/03/20 15:28 SINGLE VIEW PELVIS; 2 VIEWS LEFT HIP CLINICAL HISTORY: Fall. Left hip pain. FINDINGS: An AP view of the pelvis with AP and frog-leg views of the left hip are compared to study dated 11/07/2015. The skeletal structures are osteopenic. There is no radiographic evidence of acute fracture involving the hips or bony pelvis. A bipolar right hip arthroplasty is in near-anatomic alignment. Moderate to advanced degenerative joint space narrowing is noted in the left hip. Mild degenerative sclerosis is seen in the sacroiliac joints. The overlying soft tissues are normal as imaged. IMPRESSION: No acute bony abnormality is identified. Electronically signed by: Stuart Shaw M.D. 11/03/2020 5:02 PM Hospital Course (1) Ambulatory dysfunction: 75 yo F with hx HTN, DM2, DVT, intracranial hemorrhage, Galeas's Palsy, aortic stenosis, admitted for fall from standing height and concern for deconditioning. Fall due to polypharmacy vs. deconditioning vs dehydration given uncontrolled DM/neuropathy - XR feet, knees, shoulder, pelvis negative for fractures. Osteopenic bones throughout. - CT Head negative for intracranial bleed - CT C-spine negative for acute fracture/subluxation - CT Chest + A/P negative - Echo from 09/08/20 notes mild to mod aortic stenosis. - Obtained PCP medication list - patient feels she takes too many medications then ultimately doesn't take them - I think simplifying her regimen will serve the most benefit to support compliance. As well, it seems that while taking multiple prescribed medications her BP has been low to low normal which may be playing a role in falls/confusion if BP is low -- However when not taking medications her BP is > 200 - CK elevated to 1388 likely secondary to being down after the fall which she thinks was a few hours - improved to 656 on 11/04 - Currently creatinine kinase is completely resolved - PT/OT evaluation - recommending home/home services - has been independently walking in room and to bathroom Uncontrolled DM2 - A1c 10.6 09/08 - BSG 371 in ER, with B-OH 6.92. likely mix of dehydration and hyperglycemia - Resume home regimen but increase to 20u Levemir - pharmacy consult for glycemic management given labile BSG and high insulin requirements during last admission - There is concern that patient is not complaint with her medications Leukocytosis - RESOLVED - Found to have + bacteria with cx showing pansensitive e. coli - will cover with Levaquin daily with last dose on 11/13 - no urinary symptoms at this time Chronic Pain: - reportedly takes hydromorphone 12 mg PO in AM, 8 mg afternoon, 8 mg PM? - started on Gabapentin 100 mg TID at last admission for neuropathic aspect of pain. Could contribute to drowsiness, especially given that patient was off meds for a year prior to restarting - the home meds support 600 mg TID? - given no relief of symptoms can continue to remove this - continue duloxetine 60 mg PO AM - consider pain management consult/establishment outpatient for focused control of pain medications - topical diclofenac scheduled QID HTN - markedly hypertensive >200/110 on arrival; much improved with intermittent lows -- Having intermittent lower BPs and lower HR - given the possibility of non- compliance this may be too much blood pressure medications for her and will reduce dosing - Obtained list of current medications from PCP to better streamline her regimen - would prefer slightly higher blood pressures than lower to prevent falls -- Appears she was converted to Coreg instead of Metoprolol which was being used here CAD - continue statin, plavix, asa 81 [d/c pantoprazole due to interaction and inactivation of plavix] - TTE 09/30 showing grade 1 diastolic dysfunction with elevated right ventricular pressures, mild aortic stenosis - dobutamine stress echo 09/30: negative for ischemia at 89% MPHR, no chest pain, no arrhythmia Osteopenia - consider initiation of alendronate etc. for prevention of osteoporosis and pathologic fractures in person high risk for falls Hx Cirrhosis - noted on CT A/P in august 2020, today's CT A/P noting normal contour of liver with mild central intrahepatic biliary ductal dilatation. - PT/INR WNL - platelet count WNL - Alk Phos 191, mild AST elevation to 51, normal ALT - Discussed with son - will simplify and streamline medications and get close PCP follow-up. Please see med rec on discharge. Definitely would like to supply a completely reconciled list to patient and family to allow for easy transition with medication management. Overall patient has been doing really well here. 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 Would like an agency to come more in the afternoon which they can come on Friday and did relay this to case management. Son is considering personal long-term. Given patient's non- compliance with medications it may better serve to reduce medications as possible. Possibly taper of Clonidine in favor of heart protective BB and renal protective ACEI. Son does have a lady who comes to help with medications with the patient (2) Chronic pain: (3) Fall from standing: (4) Galeas's palsy: Total Time Total Time Spent Total Time Spent (In Minutes): Spent greater than 30 minutes preparing patient for discharge. This includes discussion with patient/family, assessment, intervention, medication reconciliation, and coordination of care. Discharge Plan Discharge Items Patient Disposition: Home - Home Health Services Reason For Visit: FALL Discharge Diagnosis: Fall; Urinary Tract Infection Activity: Resume your previous activity Non-emergency contact: Primary Care Provider Call non-emergency contact if: you have any medication questions, your symptoms worsen and you have a fever Follow-up/Referrals: Ioana Gutierrez MD [Resident] - 11/16/20 12:50 pm (Follow-up in 7-10 days) Diet: Carb Consistent or DM2 Addtl Attending Provider Instructions: Fall: - This fall may have been caused by multiple things. Some dehydration, urinary tract infection, the pain/neuropathy of the feet, and maybe from medications - Luckily there were no fractures or bleed on any imaging completed on admission - We will simplify the home medication regimen and have close follow-up with the family doctor. We definitely want to find a regimen that is not sedating or lowering the blood pressure but also one you are willing to take Diabetes: - Your diabetes can use some better management. Your A1c is 10.6 and we would like to see that come down slowly to the 8s or even 7s - We have been using a slightly higher dose of the Levemir insulin to try and better control this. I have provided a medication list with the current recommendations which can be reviewed on follow-up with the family doctor Urinary Tract Infection: - You only need one more day of antibiotics to treat the urinary tract infection. Luckily there has been no fevers and your blood work shows no elevation in your white blood cell count High Blood Pressure: - When you arrived your blood pressure was greater than 200 as the top number but with all the blood pressure medications your blood pressure was on the lower side. Please review the medication list provided on discharge and discuss with your family doctor - Some of your medicine like Clonidine should not be abruptly stopped so recommend to keep doing this - In regards to the Lasix (water pill) we can do a lower dose to try and help prevent too much fluid accumulation and talk with your doctor as maybe just taking it as needed could be an option in the future Medications: - Could consider stopping the iron supplement as your blood counts look good - if you tolerate it you can continue but of all the medications you could consider stopping this - Your antibiotic just needs to be taken once tomorrow on 11/13 and you would be done with that - Aspirin and Plavix help protect the heart and blood vessels - Carvedilol and Clonidine are two blood pressure medications I would not stop abruptly but can talk with your family doctor about tapering off Clonidine to remove an additional medication. The Lisinopril helps protect the kidneys when you have diabetes but is also a blood pressure medication. I did reduce the dose to try and have less effect on the blood pressure. Of all these medications Clonidine would be the blood pressure medication to consider removing once tapered - Duloxetine and Dilaudid help with nerve pain and general pain and would keep these but be mindful they can make you drowsy - Magnesium and Potassium are to help keep these important electrolytes in balance when you take Lasix. As mentioned above could consider as needed Lasix for water retention but you would have to weigh yourself daily and if you gain > 3 lbs in one day take a water pill but please discuss this with your family doctor Recommend keeping track of your blood pressure so you can show your doctor and that can help guide how to adjust medications Pending Studies at Discharge: No Stand-Alone Forms: My [facility] [employer], Smoking Cessation Medications and DC Order Prescriptions: Continued clonidine HCl 0.1 mg Tablet 0.1 mg PO BID RF: 0 clopidogrel 75 mg Tablet 75 mg PO QAM RF: 0 aspirin [Aspirin Low Dose] 81 mg Tablet,Delayed Release (Dr/Ec) 81 mg PO QAM RF: 0 pantoprazole 40 mg Tablet,Delayed Release (Dr/Ec) 40 mg PO QAM RF: 0 ferrous sulfate 325 mg (65 mg iron) Tablet 325 mg PO QAM RF: 0 duloxetine 60 mg Capsule,Delayed Release(Dr/Ec) 60 mg PO QAM RF: 0 potassium gluconate 595 mg (99 mg) Tablet 595 mg PO QAM RF: 0 hydromorphone 4 mg tablet 4 mg PO 5XD PRN (Reason: Pain) RF: 0 melatonin 5 mg Tablet 10 mg PO HS RF: 0 magnesium oxide 500 mg capsule 500 mg PO QAM RF: 0 diclofenac sodium 1 % gel 2 g topical BID PRN (Reason: pain) Qty: 100 RF: 2 rosuvastatin 20 mg tablet 20 mg PO HS RF: 0 carvedilol 12.5 mg tablet 12.5 mg PO BID RF: 0 ipratropium-albuterol 0.5 mg-3 mg(2.5 mg base)/3 mL solution for nebulization 3 ml INHALATION QID PRN (Reason: Shortness Of Breath Or Wheezing) RF: 0 metformin 500 mg tablet extended release 24 hr 500 mg PO DAILY RF: 0 Combivent Respimat 20-100 mcg/actuation mist 1 puff INHALATION QID RF: 0 Changed aspirin 325 mg Tablet 650 mg PO TID PRN (Reason: pain) Qty: 0 RF: 0 furosemide 20 mg tablet 20 mg PO DAILY 30 Days Qty: 30 RF: 0 lisinopril 40 mg Tablet 20 mg PO QAM 30 Days Qty: 15 RF: 0 Levemir FlexTouch U-100 Insuln 100 unit/mL (3 mL) insulin pen 20 unit SUBCUT QAM Qty: 0 RF: 0 Discontinued amlodipine 5 mg Tablet 5 mg PO QAM RF: 0 gabapentin 600 mg tablet 600 mg PO TID RF: 0 Discharge Orders: Discharge Order (Routine); Ordered 11/12/20 Ordered By: Lien Gray/Other Patient Handouts: Exercises to Prevent Falls, ED Fall with Uncertain Cause Admission Data Admit Date/Time: 11/03/20 21:06 Attending Provider: Param Santo Admit Provider: Lina Hanson Primary Care Provider: Radha Gonzalez Other Providers: Nomi Garza ; [place] ; [facility], Other Interventions: Discharge Summary Assessment (RN) Last Done: 11/12/20 17:55 Supervising Physician Co-Signing Physician Notes Attending note: patient seen and examined with Lien Smalls PA-C. I agree with her discharge summary. I personally reviewed the labs and imaging findings. patient well known to me on prior visits, recurrent issues with polypharmacy, likely not taking medications as prescribed, or taking too much this inconsistency leads to weakness, fluctuations in blood pressure, confusion and falls and causes her to come to the hospital [facility] worked very hard to streamline her medications and determine what she should be taking and what can be stopped, what can be tapered off she was in communication with the patient's son - Fall, weakness, polypharmacy, hypertension, diabetes please refer to the med rec on discharge home nursing set up to check on medications feel strongly that if the patient returns for similar problem she should be referred to personal long-term, someone can control her medications Coding Level of Care Code D/C DAY MANAGEMENT >30 MINS Diagnoses Ambulatory dysfunction R26.2 Chronic pain G89.29 Chronic pain type: other chronic pain Fall from standing W19.XXXA Encounter type: initial encounter 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
== END 2020-11-12 07:15 | disposition home health service (06) ==
LOC: ED 14:44 → 3N 21:06 → SUATTDRO 21:06 → INTOOBSV 21:06 → 3N 22:59

== ENCOUNTER 2021-03-19 09:46 | Inpatient (IN) ==
[2021-03-19] MEDS ORDERED: SODIUM CHLORIDE 0.9% 500 ML IV ONE (10:50)
[2021-03-19 11:00] LABS: Basophils # (auto) 0.01 K/uL (0-0.2); Basophils % (auto) 0.1 %; Eosinophils # (auto) 0.08 K/uL (0-0.5); Hematocrit (blood only) 44.9 % (37-47); Hemoglobin 15.2 g/dL (12.0-16.0); Immature Granulocytes # (auto) 0.01 K/uL (0.00-0.02); Immature Granulocytes % (auto) 0.1 %; Lymphocytes # (auto) 1.49 K/uL (1.2-3.4); Lymphocytes % (auto) 19.3 %; Mean Corpuscular Hemoglobin 30.8 pg (25-34); Mean Corpuscular Hgb Conc 33.9 g/dL (32-36); Mean Corpuscular Volume 90.9 fL (80-100); Mean Platelet Volume 11.7 fL (7.4-10.4); Monocytes # (auto) 0.33 K/uL (0.11-0.59); Monocytes % (auto) 4.3 %; Neutrophils # (auto) 5.82 K/uL (1.4-6.5); Neutrophils % (auto) 75.2 %; Platelet Count 209 K/uL (130-400); RDW Coefficient of Variation 13.1 % (11.5-14.5); Red Blood Count 4.94 M/uL (4.2-5.4); White Blood Count 7.74 K/uL (4.8-10.8)
--- NOTE | 2021-03-19 11:04 | XRay Report ---
XR chest 1V portable CLINICAL HISTORY: Atypical chest pain TECHNIQUE: Single frontal radiograph of the chest was obtained. Comparison: Comparison is made to chest one view 11/03/2020 FINDINGS: No lines and tubes are seen. Cardiomegaly is noted. The lungs are clear. No evidence of pleural effus ion or pneumothorax. IMPRESSION: No acute chest disease. ACT 112: Negative or not required by law. Electronically signed by: Param Fernandez M.D. 03/19/2021 11:02 AM
[2021-03-19 11:17] LABS: Appearance Urine Clear (Clear); Bacteria Urine Automated Negative (Negative); Bilirubin Urine Negative (Negative); Blood Urine Negative (Negative); Color Urine Dark Yellow; Glucose Urine UA Negative (Negative); Ketones Urine Trace (Negative); Leukocyte Esterase Urine Trace (Negative); Nitrite Urine Negative (Negative); Protein Urine Trace (Negative); RBC Urine Automated 0-4 /hpf (0-4); Specific Gravity Urine 1.024 (1.000-1.030); Urobilinogen Urine Negative (Negative)
[2021-03-19 11:19] LABS: INR 1.1 (0.9-1.1); Prothrombin Time 10.8 Seconds (9.0-12.0)
[2021-03-19 11:23] LABS: Troponin I < 0.03 ng/ml (0-0.04)
[2021-03-19 11:31] LABS: Alanine Aminotransferase 8 U/L (7-52); Albumin Globulin Ratio 1.1 (0.9-2); Albumin Level 4.1 gm/dl (3.4-5.0); Alkaline Phosphatase 102 U/L (34-104); Anion Gap 8 (3-11); BUN Creatinine Ratio 26.9 (10-20); Bilirubin,Total 0.8 mg/dl (0.2-1.0); Blood Urea Nitrogen 21 mg/dl (6-23); Calcium 9.2 mg/dl (8.5-10.1); Carbon Dioxide 32 mmol/L (21-32); Chloride 96 mmol/L (98-107); Creatinine Clr Calc Pharmacy 63.4 ml/min; Est GFR (Non-African American) 73.3 ml/min; Globulin 3.8 gm/dl (2.5-4.0); Glucose 174 mg/dl (70-99(Fasting)); Lipase 11 U/L (11-82); Magnesium 1.7 mg/dl (1.7-2.4); Phosphorus 3.9 mg/dl (2.5-4.9); Sodium 136 mmol/L (136-145); Total Protein 7.9 gm/dl (6.0-8.3)
[2021-03-19 11:45] LABS: Aspartate Aminotransferase 14 U/L (13-39); Potassium 3.9 mmol/L (3.5-5.1)
[2021-03-19] MEDS ORDERED: ACETAMINOPHEN 1,000 MG/100 ML VIAL IV STA (12:45)
[2021-03-19] MEDS ORDERED: OPTIRAY 320 125ml IV ONE (12:45)
[2021-03-19] MEDS ORDERED: HYDROmorphone HCL 2 MG TAB PO STA (12:45)
--- NOTE | 2021-03-19 13:01 | CT Scan Report ---
NONCONTRAST HEAD CT, HEAD & NECK CTA HISTORY: fall, weakness, slurred speech, h/o bells palsey TECHNIQUE: Multiaxial CT images of the head were performed both before and after the intravenous admi nistration of contrast to evaluate the major cerebral vessels. Multiaxial CT images of the neck were also performed following the intravenous administration of contrast to evaluate the major cervical ve ssels. Maximum intensity projection images were also obtained. A dose lowering technique was utilized adhering to the principles of ALARA. COMPARISON: Head CT 11/03/2020 FINDINGS: NONCONTRAST HEAD CT: The paranasal sinuses and mastoid air cells are clear. The calvarium and skull b ase are intact. The ventricles and sulci demonstrate mild age-related involutional changes. Mild micr ovascular ischemic change also noted. There is a new hypodense focus within the right basal ganglia m easuring up to 2.2 cm consistent with an acute to subacute infarct. No hemorrhage or midline shift id entified. No intracranial mass is present.. HEAD CTA: Visualized intracranial internal carotid arteries, distal vertebral arteries, and basilar a rtery are widely patent. There is no significant stenosis, occlusion, or aneurysm seen within the noe ateral ACAs, MCAs, or curtain roller assembler. The major dural venous sinuses are patent. Mild calcified plaque within t he bilateral carotid siphons. NECK CTA: The aortic arch and proximal great vessels are widely patent. There is no significant sten osis, occlusion, or dissection identified within the bilateral common carotid, internal carotid, or v ertebral arteries. Mild calcified plaque within the bilateral carotid bifurcations. IMPRESSION: 1. There is an acute to subacute 2.2 cm infarct within the right basal ganglia. 2. No significant stenosis, occlusion, or aneurysm within the [place]. 3. No significant stenosis, occlusion, or dissection identified within the carotid or vertebral arter ies. ACT 112: Negative or not required by law. Electronically signed by: Sam Antony M.D. 03/19/2021 1:00 PM
--- NOTE | 2021-03-19 13:01 | CT Scan Report ---
NONCONTRAST HEAD CT, HEAD & NECK CTA HISTORY: fall, weakness, slurred speech, h/o bells palsey TECHNIQUE: Multiaxial CT images of the head were performed both before and after the intravenous admi nistration of contrast to evaluate the major cerebral vessels. Multiaxial CT images of the neck were also performed following the intravenous administration of contrast to evaluate the major cervical ve ssels. Maximum intensity projection images were also obtained. A dose lowering technique was utilized adhering to the principles of ALARA. COMPARISON: Head CT 11/03/2020 FINDINGS: NONCONTRAST HEAD CT: The paranasal sinuses and mastoid air cells are clear. The calvarium and skull b ase are intact. The ventricles and sulci demonstrate mild age-related involutional changes. Mild micr ovascular ischemic change also noted. There is a new hypodense focus within the right basal ganglia m easuring up to 2.2 cm consistent with an acute to subacute infarct. No hemorrhage or midline shift id entified. No intracranial mass is present.. HEAD CTA: Visualized intracranial internal carotid arteries, distal vertebral arteries, and basilar a rtery are widely patent. There is no significant stenosis, occlusion, or aneurysm seen within the noe ateral ACAs, MCAs, or aml analyst. The major dural venous sinuses are patent. Mild calcified plaque within t he bilateral carotid siphons. NECK CTA: The aortic arch and proximal great vessels are widely patent. There is no significant sten osis, occlusion, or dissection identified within the bilateral common carotid, internal carotid, or v ertebral arteries. Mild calcified plaque within the bilateral carotid bifurcations. IMPRESSION: 1. There is an acute to subacute 2.2 cm infarct within the right basal ganglia. 2. No significant stenosis, occlusion, or aneurysm within the [place]. 3. No significant stenosis, occlusion, or dissection identified within the carotid or vertebral arter ies. ACT 112: Negative or not required by law. Electronically signed by: Sam Antony M.D. 03/19/2021 1:00 PM
--- NOTE | 2021-03-19 13:01 | CT Scan Report ---
NONCONTRAST HEAD CT, HEAD & NECK CTA HISTORY: fall, weakness, slurred speech, h/o bells palsey TECHNIQUE: Multiaxial CT images of the head were performed both before and after the intravenous admi nistration of contrast to evaluate the major cerebral vessels. Multiaxial CT images of the neck were also performed following the intravenous administration of contrast to evaluate the major cervical ve ssels. Maximum intensity projection images were also obtained. A dose lowering technique was utilized adhering to the principles of ALARA. COMPARISON: Head CT 11/03/2020 FINDINGS: NONCONTRAST HEAD CT: The paranasal sinuses and mastoid air cells are clear. The calvarium and skull b ase are intact. The ventricles and sulci demonstrate mild age-related involutional changes. Mild micr ovascular ischemic change also noted. There is a new hypodense focus within the right basal ganglia m easuring up to 2.2 cm consistent with an acute to subacute infarct. No hemorrhage or midline shift id entified. No intracranial mass is present.. HEAD CTA: Visualized intracranial internal carotid arteries, distal vertebral arteries, and basilar a rtery are widely patent. There is no significant stenosis, occlusion, or aneurysm seen within the noe ateral ACAs, MCAs, or liver trimmer. The major dural venous sinuses are patent. Mild calcified plaque within t he bilateral carotid siphons. NECK CTA: The aortic arch and proximal great vessels are widely patent. There is no significant sten osis, occlusion, or dissection identified within the bilateral common carotid, internal carotid, or v ertebral arteries. Mild calcified plaque within the bilateral carotid bifurcations. IMPRESSION: 1. There is an acute to subacute 2.2 cm infarct within the right basal ganglia. 2. No significant stenosis, occlusion, or aneurysm within the [place]. 3. No significant stenosis, occlusion, or dissection identified within the carotid or vertebral arter ies. ACT 112: Negative or not required by law. Electronically signed by: Sam Antony M.D. 03/19/2021 1:00 PM
--- NOTE | 2021-03-19 17:35 | History & Physical Report ---
Date of Service March 19, 2021 Assessment & Plan (1) CVA (cerebral vascular accident): Plan: Right sided basal ganglial ischemic stroke- acute to subacute - Risk factors: HTN, HLD, DM, New onset Afib/Aflutter - Time last known well was either last night (03/18/21 or Friday) - Hold asa/Plavix in lieu of heparin drip- transition to oral DOAC when able - Follow q2 hour neurological exams- any change obtain head CT without contrast for hemorrhagic conversion - MRI - Lipids in morning- continue rosuvastatin 20mg- adjust based on lipid profile - ECHO in morning - Allow for permissive HTN - Speech evaluation for swallow eval - Neurology consult- already discussed with Dr. lAbarran - Provide stroke education - Monitor telemetry 24-48 hours (2) Atrial flutter: Plan: New onset- - rate variable as well as variable atrial conduction - rate controlled currently- continue with carvedilol - Magnesium 1.7- replace with 2GM mag - follow rate and rhythm control (3) HTN (hypertension): Plan: Poorly controlled in the past - currently stable - Hold CLEMENT - Hold Lasix tonight 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 - left shoulder and arm chronically weak and decrease movement (6) DVT (deep venous thrombosis): Plan: History from patient reveals DVT multiple in legs in past with intolerance to Coumadin with leg swelling - With IVC filter- still in place noted on CT abdomen and Pelvis 10/31 - SCDs- Heparin drip for Afib/Aflutter (7) CHF (congestive heart failure): Plan: HFpEF- EF 60-65% in 08/30 normal wall motion mild AR and stenosis- follow with holding of CLEMENT - Continue Carvedilol 12.5mg BID (8) Chronic pain: Plan: Continue diclofenac hold hydromorphone (9) S/P IVC filter: Plan: As above - (10) Asthma: Plan: Continue ipratropium/albuterol - Continue Respimat (11) Diabetes: Plan: DMII on Insulin and Metformin at home - HGB A1c in morning - Hold basal insulin for tonight with loveley decrease oral intake - sliding scale with aspart 20 CF with ration 1:15- Goal <180 (12) Depression: Plan: Anxiety and Depression with ? HX of Bi-polar- reported by son - PCP is P[facility]- if need to adjust/confirm above dx - Continue Duloxetine (13) History of subdural hematoma: History of Present Illness Chief Complaint: left-sided weakness Primary Care Provider: KEILY Medeiros 76 YOF with past medical history of: Chronic back/shoulder pain, DM II (on insulin), Galeas's palsy, DVT (on Coumadin in the 60-70's? intolerance), asthma, HTN, shoulder replacement with infection requiring removal of hardware, HFpEF. Patient was brought to the EMD today via EMS for evaluation of weakness and inability to get up from floor. Patient was attempting to get in bed last PM and was unable to get her leg up into bed (she is unsure of which leg) or use her arms to pull herself into bed, so she grabbed a blanket and a pillow and slept on the floor, she was found this morning by her son, who comes over every day to make sure she has taken her medications. She presented to the EMD and had workup for CVA with CT scan of head and CTA of the head and neck performed. This revealed 2.2CM right sided basal ganglial ischemic stroke without hemorrhage or midline shift. She is on ASA and Plavix for what appears to be intolerance to Coumadin secondary to multiple DVTs. Hospitalist was consulted for admission. Upon evaluation telemetry also appeared to reveal afib/aflutter on the monitor, this is new for her. ECG was performed which is irregular narrow complex variable aflutter vs. afib. This may have attributed to her CVA as well. Patient will be admitted to medical telemetry unit, continue to CVA workup to include MRI and ECHO, follow on telemetry overnight. Will place on heparin drip no bolus low dose protocol for her Aflutter vs. Afib. Patient symptoms may have started on Friday following discussion with the son, as she exhibited some worsening of her facial droop and slurring of words. This was attributed to her previous history of Galeas's palsy, the patient states that she may have felt her left arm and leg be weaker through Friday and Friday, but last night was unable to get in bed. She is a difficult historian and also has had difficulties with medication compliance at home. She now has a home health nurse that comes and prepares her medications throughout the week for her and her son stops over every morning to make sure she has taken them. Patient denies any visual changes and difficult to elicit an visual field defects, she feels her speech may be a little more slurred than normal, she took her medications this morning without any difficulty swallowing she states. Evaluate with bedside swallow as well as speech therapy evaluation. Patient COVID test on admission is: NEGATIVE Allergies Allergy/AdvReac Type Severity Reaction Status Date / Time Cephalosporins Allergy Intermediate RINGING OF Verified 03/19/21 10:41 EARS,FALLING BALANCE ISSUES prochlorperazine Allergy Intermediate STROKE Verified 03/19/21 10:41 LIKE SYMPTOMS, CAN'T TALK linezolid AdvReac Intermediate diarrhea,vo Verified 03/19/21 10:41 miting tramadol AdvReac Intermediate UNSTEADY Verified 03/19/21 10:41 ON FEET, HYPERACTIVITY morphine AdvReac Unknown NOT Verified 03/19/21 10:41 EFFECTIVE Home Medications Medication Instructions Recorded Confirmed Type aspirin 81 mg tablet,delayed 81 mg PO QAM 10/21/17 03/19/21 History release (Aspirin Low Dose) clonidine HCl 0.1 mg tablet 0.1 mg PO BID 10/21/17 03/19/21 History clopidogrel 75 mg tablet 75 mg PO QAM 10/21/17 03/19/21 History duloxetine 60 mg capsule,delayed 60 mg PO QAM 10/21/17 03/19/21 History release ferrous sulfate 325 mg (65 mg 325 mg PO QAM 10/21/17 03/19/21 History iron) tablet pantoprazole 40 mg tablet,delayed 40 mg PO QAM 10/21/17 03/19/21 History release potassium gluconate 595 mg (99 mg) 595 mg PO QAM 10/21/17 03/19/21 History tablet melatonin 5 mg tablet 10 mg PO HS 12/13/17 03/19/21 History magnesium oxide 500 mg capsule 500 mg PO QAM 12/17/18 03/19/21 History hydromorphone 4 mg tablet 4 mg PO 5XD PRN 12/26/19 03/19/21 History diclofenac sodium 1 % topical gel 2 g TOPICAL BID PRN #100 g 09/13/20 03/19/21 Rx carvedilol 12.5 mg tablet 12.5 mg PO BID 11/11/20 03/19/21 History ipratropium 0.5 mg-albuterol 3 mg 3 ml INHALATION QID PRN 11/11/20 03/19/21 History (2.5 mg base)/3 mL nebulization soln ipratropium 20 mcg-albuterol 100 1 puff INHALATION QID 11/11/20 03/19/21 History mcg/actuation mist for inhalation (Combivent Respimat) metformin 500 mg tablet,extended 500 mg PO DAILY 11/11/20 03/19/21 History release 24 hr rosuvastatin 20 mg tablet 20 mg PO HS 11/11/20 03/19/21 History aspirin 325 mg tablet 650 mg PO TID PRN #0 tab 11/12/20 03/19/21 Rx furosemide 20 mg tablet 20 mg PO DAILY 30 Days #30 tab 11/12/20 03/19/21 Rx insulin detemir U-100 100 unit/mL 20 unit SUBCUT QAM #0 ml 11/12/20 03/19/21 Rx (3 mL) subcutaneous pen (Levemir FlexTouch U-100 Insulin) lisinopril 40 mg tablet 20 mg PO QAM 30 Days #15 tab 11/12/20 03/19/21 Rx Past Med/Surg History Medical History Ambulatory dysfunction Anemia Asthma CHF (congestive heart failure) Chronic back pain (06/14/12) Cirrhosis Noted on CT scan 09/08/2020 Confusion Dehydration Diabetes DVT (deep venous thrombosis) Fall Fall from standing Gout HTN (hypertension) Hypomagnesemia Intracranial hemorrhage (03/04/14) Recurrent falls (10/04/12) Rhabdomyolysis Rheumatoid arthritis (08/12/12) Sleep apnea (04/27/12) Subdural hematoma Weakness Surgical History H/O shoulder surgery History of hysterectomy Hx of appendectomy S/P cholecystectomy S/P IVC filter Family History Other Hypertension Seizures Social History Smoking Status: Never smoker Hx Alcohol Use: No Hx Substance Use: No Preferred Language: Romanian Communication Ability: Effective Visual Impairment: No Limitations 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: Normal 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: No Beliefs That Will Affect Care: None marital status: / Current Living Situation: Alone Current Living Situation Comment: Condo Other Information That Helps Us Care for You: No Feels Safe at Home: Yes Safety Concerns: Feels Safe At This Time Assistive Devices: Denture - Upper, Denture - Lower and Glasses Review of Systems Review of Systems: REVIEW OF SYSTEMS: Constitutional: (+) headache, No fever, sweats or chills Eyes: No diplopia, no worsening or blurred vision ENT: normal hearing, no trouble swallowing Respiratory: No cough, sputum, dyspnea at rest or on exertion Cardiovascular: No chest pain, tightness or palpitations Abdomen: No pain, nausea, vomiting, diarrhea or constipation Musculoskeletal: (+) DJD, arthritis, left shoulder pain, right hip pain, No calf pain, swelling Neurologic: (+) weakness, numbness/tingling in hands and feet, NO balance problems Psychiatric: (+) anxiety/depression ? Bi-polar Skin: (+) healing ulcers on right toes Physical Exam Physical Exam: PHYSICAL EXAM: General: awake, alert, no apparent distress Head: Normocephalic, atraumatic ENT: Neuro: AAO x 3, PEERLA, vision intact without visual filed deficit appreciated, Tongue midline, difficulty puffing out cheeks, right facial droop, left arm weakness 3/5, sensory and motor intact speech clear and appropriate, sensation intact and equal all extremities and dermatomes, no difficulty reading, mild slurring of words Chest: equal rise and fall of the chest, no accessory muscle use, no heaves or thrills, Clear to auscultation, on room air, Cardiac: Regular rate and rhythm, telemetry reviewed (Afib/Aflutter), skin warm dry, cap refill <3 seconds, peripheral pulses +2 no JVD, no murmur, no edema GI: NABS x 4 quadrants, soft, nontender to palpation, no rebound, guarding or tenderness : Spontaneously voiding, no pain, no CVA tenderness, Extremities: Normal inspection, no peripheral edema or erythema, calfs nontender to palpation Psych: Normal mood and affect Skin: well healing ulcerations to right toes Results & Data Results & Data ([facility]) Vital Signs (Past 12 Hours) Vital Signs Temp Pulse Pulse Resp BP BP Pulse Ox 03/19/21 15:00 88 19 138/93 97 03/19/21 13:00 71 18 150/87 H 96 03/19/21 10:32 96 03/19/21 10:16 36.4 C L 102 H 15 125/95 Laboratory Results Abnormal lab results 03/19/21 03/19/21 03/19/21 Range/Units 09:58 10:15 10:40 MPV 11.7 H (7.4-10.4) fL Chloride (98-107) mmol/L BUN/Creatinine Ratio (10-20) Glucose (70-99(Fasting)) mg/dl POC Glucose 149 H (70-99) mg/dl Urine Protein Trace H (Negative) Urine Ketones Trace H (Negative) Ur Leukocyte Esterase Trace H (Negative) U Epithel Cells (Auto) 10-20 H (0-5) /lpf 03/19/21 Range/Units 10:40 MPV (7.4-10.4) fL Chloride 96 L (98-107) mmol/L BUN/Creatinine Ratio 26.9 H (10-20) Glucose 174 H (70-99(Fasting)) mg/dl POC Glucose (70-99) mg/dl Urine Protein (Negative) Urine Ketones (Negative) Ur Leukocyte Esterase (Negative) U Epithel Cells (Auto) (0-5) /lpf Diagnostic Findings Chest X-Ray 03/19/21 10:49 XR chest 1V portable CLINICAL HISTORY: Atypical chest pain TECHNIQUE: Single frontal radiograph of the chest was obtained. Comparison: Comparison is made to chest one view 11/03/2020 FINDINGS: No lines and tubes are seen. Cardiomegaly is noted. The lungs are clear. No evidence of pleural effusion or pneumothorax. IMPRESSION: No acute chest disease. ACT 112: Negative or not required by law. Electronically signed by: Param Fernandez M.D. 03/19/2021 11:[address] 03/19/21 10:[address], HEAD & NECK CTA HISTORY: fall, weakness, slurred speech, h/o bells palsey TECHNIQUE: Multiaxial CT images of the head were performed both before and after the intravenous administration of contrast to evaluate the major cerebral vessels. Multiaxial CT images of the neck were also performed following the intravenous administration of contrast to evaluate the major cervical vessels. Maximum intensity projection images were also obtained. A dose lowering technique was utilized adhering to the principles of ALARA. COMPARISON: Head CT 11/03/2020 FINDINGS: NONCONTRAST HEAD CT: The paranasal sinuses and mastoid air cells are clear. The calvarium and skull base are intact. The ventricles and sulci demonstrate mild age-related involutional changes. Mild microvascular ischemic change also noted. There is a new hypodense focus within the right basal ganglia measuring up to 2.2 cm consistent with an acute to subacute infarct. No hemorrhage or midline shift identified. No intracranial mass is present.. HEAD CTA: Visualized intracranial internal carotid arteries, distal vertebral arteries, and basilar artery are widely patent. 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 The major dural venous sinuses are patent. Mild calcified plaque within the bilateral carotid siphons. NECK CTA: The aortic arch and proximal great vessels are widely patent. There is no significant stenosis, occlusion, or dissection identified within the bilateral common carotid, internal carotid, or vertebral arteries. Mild calcif ied plaque within the bilateral carotid bifurcations. IMPRESSION: 1. There is an acute to subacute 2.2 cm infarct within the right basal ganglia. 2. No significant stenosis, occlusion, or aneurysm within the [place]. 3. No significant stenosis, occlusion, or dissection identified within the carotid or vertebral arteries. ACT 112: Negative or not required by law. Electronically signed by: Sam Antony M.D. 03/19/2021 1:00 PM Head CTA 03/19/21 10:[address], HEAD & NECK CTA HISTORY: fall, weakness, slurred speech, h/o bells palsey TECHNIQUE: Multiaxial CT images of the head were performed both before and after the intravenous administration of contrast to evaluate the major cerebral vessels. Multiaxial CT images of the neck were also performed following the intravenous administration of contrast to evaluate the major cervical vessels. Maximum intensity projection images were also obtained. A dose lowering technique was utilized adhering to the principles of ALARA. COMPARISON: Head CT 11/03/2020 FINDINGS: NONCONTRAST HEAD CT: The paranasal sinuses and mastoid air cells are clear. The calvarium and skull base are intact. The ventricles and sulci demonstrate mild age-related involutional changes. Mild microvascular ischemic change also noted. There is a new hypodense focus within the right basal ganglia measuring up to 2.2 cm consistent with an acute to subacute infarct. No hemorrhage or midline shift identified. No intracranial mass is present.. HEAD CTA: Visualized intracranial internal carotid arteries, distal vertebral arteries, and basilar artery are widely patent. 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 The major dural venous sinuses are patent. Mild calcified plaque within the bilateral carotid siphons. NECK CTA: The aortic arch and proximal great vessels are widely patent. There is no significant stenosis, occlusion, or dissection identified within the bilateral common carotid, internal carotid, or vertebral arteries. Mild calcified plaque within the bilateral carotid bifurcations. IMPRESSION: 1. There is an acute to subacute 2.2 cm infarct within the right basal ganglia. 2. No significant stenosis, occlusion, or aneurysm within the [place]. 3. No significant stenosis, occlusion, or dissection identified within the carotid or vertebral arteries. ACT 112: Negative or not required by law. Electronically signed by: Sam Antony M.D. 03/19/2021 1:00 PM Neck CTA 03/19/21 10:[address], HEAD & NECK CTA HISTORY: fall, weakness, slurred speech, h/o bells palsey TECHNIQUE: Multiaxial CT images of the head were performed both before and after the intravenous administration of contrast to evaluate the major cerebral vessels. Multiaxial CT images of the neck were also performed following the intravenous administration of contrast to evaluate the major cervical vessels. Maximum intensity projection images were also obtained. A dose lowering technique was utilized adhering to the principles of ALARA. COMPARISON: Head CT 11/03/2020 FINDINGS: NONCONTRAST HEAD CT: The paranasal sinuses and mastoid air cells are clear. The calvarium and skull base are intact. The ventricles and sulci demonstrate mild age-related involutional changes. Mild microvascular ischemic change also noted. There is a new hypodense focus within the right basal ganglia measuring up to 2.2 cm consistent with an acute to subacute infarct. No hemorrhage or midline shift identified. No intracranial mass is present.. HEAD CTA: Visualized intracranial internal carotid arteries, distal vertebral arteries, and basilar artery are widely patent. 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 The major dural venous sinuses are patent. Mild calcified plaque within the bilateral carotid siphons. NECK CTA: The aortic arch and proximal great vessels are widely patent. There is no significant stenosis, occlusion, or dissection identified within the bilateral common carotid, internal carotid, or vertebral arteries. Mild calcified plaque within the bilateral carotid bifurcations. IMPRESSION: 1. There is an acute to subacute 2.2 cm infarct within the right basal ganglia. 2. No significant stenosis, occlusion, or aneurysm within the [place]. 3. No significant stenosis, occlusion, or dissection identified within the carotid or vertebral arteries. ACT 112: Negative or not required by law. Electronically signed by: Sam Antony M.D. 03/19/2021 1:00 PM Medications Administered Home Medications aspirin 81 mg tablet,delayed release (Aspirin Low Dose) 81 mg PO QAM 10/21/17 [History Confirmed 03/19/21] clonidine HCl 0.1 mg tablet 0.1 mg PO BID 10/21/17 [History Confirmed 03/19/21] clopidogrel 75 mg tablet 75 mg PO QAM 10/21/17 [History Confirmed 03/19/21] duloxetine 60 mg capsule,delayed release 60 mg PO QAM 10/21/17 [History Confirmed 03/19/21] ferrous sulfate 325 mg (65 mg iron) tablet 325 mg PO QAM 10/21/17 [History Confirmed 03/19/21] pantoprazole 40 mg tablet,delayed release 40 mg PO QAM 10/21/17 [History Confirmed 03/19/21] potassium gluconate 595 mg (99 mg) tablet 595 mg PO QAM 10/21/17 [History Confirmed 03/19/21] melatonin 5 mg tablet 10 mg PO HS 12/13/17 [History Confirmed 03/19/21] magnesium oxide 500 mg capsule 500 mg PO QAM 12/17/18 [History Confirmed 03/19/21] hydromorphone 4 mg tablet 4 mg PO 5XD PRN 12/26/19 [History Confirmed 03/19/21] diclofenac sodium 1 % topical gel 2 g TOPICAL BID PRN #100 g 09/13/20 [Rx Confirmed 03/19/21] carvedilol 12.5 mg tablet 12.5 mg PO BID 11/11/20 [History Confirmed 03/19/21] ipratropium 0.5 mg-albuterol 3 mg (2.5 mg base)/3 mL nebulization soln 3 ml INHALATION QID PRN 11/11/20 [History Confirmed 03/19/21] ipratropium 20 mcg-albuterol 100 mcg/actuation mist for inhalation (Combivent Respimat) 1 puff INHALATION QID 11/11/20 [History Confirmed 03/19/21] metformin 500 mg tablet,extended release 24 hr 500 mg PO DAILY 11/11/20 [History Confirmed 03/19/21] rosuvastatin 20 mg tablet 20 mg PO HS 11/11/20 [History Confirmed 03/19/21] aspirin 325 mg tablet 650 mg PO TID PRN #0 tab 11/12/20 [Rx Confirmed 03/19/21] furosemide 20 mg tablet 20 mg PO DAILY 30 Days #30 tab 11/12/20 [Rx Confirmed 03/19/21] insulin detemir U-100 100 unit/mL (3 mL) subcutaneous pen (Levemir FlexTouch U- 100 Insulin) 20 unit SUBCUT QAM #0 ml 11/12/20 [Rx Confirmed 03/19/21] lisinopril 40 mg tablet 20 mg PO QAM 30 Days #15 tab 11/12/20 [Rx Confirmed 03/19/21] Active Medications Magnesium Sulfate/Dextrose (Magnesium Sulfate / D5w) 1 gm in 100 mls @ 50 mls/hr IV Q2H STA Stop: 03/19/21 19:38 ECG Additional Comments: Atrial flutter with variable A-V block with premature ventricular or aberrantly conducted complexes Left anterior fascicular block Abnormal ECG When compared with ECG of 19-MAR-2021 10:13, (unconfirmed) Previous ECG has undetermined rhythm, needs review Nonspecific T wave abnormality now evident in Inferior leads T wave amplitude has decreased in Anterior leads Nonspecific T wave abnormality no longer evident in Lateral leads Code Status & VTE Plan Code Status CODE: DNR/DNI VTE: SCDS, Heparin Drip for aflutter/afib VTE Prophylaxis Plan VTE Prophylaxis will be ordered: Yes Supervising Physician Co-Signing Physician Notes Attending Attestation & Admission Note: Pt seen/examined, chart reviewed, care plan d/w KEILY White. I agree w/ the torres components of his documentation. 76yo female - multiple CVA risk factors, along with prior h/o Galeas's Palsy (affecting R face??), T2DM, HTN, prior DVT with IVC filter, and remote h/o SDH -- presented from home due to left-sided weakness and inability to get off the floor due to this weakness. Upon presentation CT head with R-sided basal ganglia stroke. Additionally, was found to be in a.fib/flutter while in the ER. During my assessment she mainly complained of her left arm being weak. She was noted to be drinking water and had no coughing, drooling, etc with such. PMH/PSH/allergies/meds/sochx/famhx - reviewed vitals - tachy, afebrile, BPs wnl gen - very pleasant, speech relatively clear face - ?right facial droop (especially of lower 1/3 on right) tongue - slight deviation to left neck - no JVD heart - tachy, irregular, s1 s2 lungs - cta b/l abd - soft NT ND BS+ ext - trace edema; pulses 2+ b/l neuro - strength LUE 3-4/5; strength LLE 4/5; RUE/RLE - 5/5 strength labs reviewed imaging reviewed EKG - initial at presentation - my reading: aflutter, variable block; PVC; left axis deviation; no ST changes 2nd EKG - a.fib A/P: 1. right-sided basal ganglia stroke - ischemic vs embolic. Agree w/ anticoagulation for afib/flutter; start with heparin drip, need to use cautiously to avoid hemorrhagic transformation. Hold antiplatelet agents. Lipids in am. Echo, neuro consult, PT, OT, speech evals. 2. new onset a.fib/flutter - takes coreg at home, and thus far rates have been fair. may need to change coreg to metoprolol for more selective rate control. 3. h/o SDH - need to get more details on this in light of using chronic anticoagulation after discharge. 4. h/o DVT with IVC filter placement - need to get more details on this as well. 5. DM, HTN Peter Martinez MD PG Care Time/CCT Total # of Minutes Spent Total Time Spent with Patient: Total time spent is greater than 50% in coordination of care (as documented) at patient's floor/unit and/or counseling patient: Coding Level of Care Code 38897 Initial In Care Lvl 3 Diagnoses CVA (cerebral vascular accident) I63.9 HTN (hypertension) I10 Hypertension type: essential hypertension Arthritis M19.90 DJD of shoulder M19.019 DVT (deep venous thrombosis) I82.409 CHF (congestive heart failure) I50.9 Chronic pain G89.29 Chronic pain type: other chronic pain S/P IVC filter Z95.828 Asthma J45.909 Diabetes E11.9 Depression F32.A Atrial flutter I48.92 Atrial flutter type: unspecified History of subdural hematoma Z86.79 (1) Chronic pain Chronic pain type: other chronic pain Qualified Code(s): G89.29 - Other chronic pain (2) HTN (hypertension) Hypertension type: essential hypertension Qualified Code(s): I10 - Essential (primary) hypertension (3) Atrial flutter Atrial flutter type: unspecified Qualified Code(s): I48.92 - Unspecified atrial flutter
[2021-03-19] MEDS ORDERED: MAGNESIUM SULFATE / D5W 1 GM/100 ML BAG IV STA ×2 (17:39→21:29)
--- NOTE | 2021-03-19 18:13 | Magnetic Resonance Report ---
MRI OF THE BRAIN WITHOUT CONTRAST CLINICAL HISTORY: stroke evaluation COMPARISON STUDY: MRI of the brain March 05, 2014. Head CT and CTA of the head March 19, 2021. TECHNIQUE: Utilizing a 1.5 Lu magnet and dedicated coil, multiplanar, multiecho imaging of the bra in was performed without IV contrast. FINDINGS: Note is made of a 2.2 cm focus of restricted diffusion within the right basal ganglia and r ight external capsule. This corresponds to the finding on head CT performed earlier today. This has s light inherent T1 hyperintensity. No additional foci of restricted diffusion are present. Mild ventri cular dilatation is due to atrophy. Basal cisterns are patent. There are no extra axial collections. White matter T2 hyperintense foci reflect small vessel disease. Incidental note is made of ossificati on along the falx. There is a lipoma of the superior scalp. Calvarial signal is within normal limits. No intracranial masses identified on this unenhanced exam. There are no extra-axial fluid collection . Basal cisterns are patent. IMPRESSION: 1. 2.2 cm acute to subacute infarct within the right basal ganglia and right external capsule. No mas s effect. This contains slight inherent T1 hyperintensity. This could reflect trace blood products o r laminar necrosis. Short-term follow-up head CT in 24 to 48 hours is recommended. 2. White matter T2 hyperintense foci consistent with small vessel disease. ACT 112: Negative or not required by law. Electronically signed by: Jerome Lowry M.D. 03/19/2021 6:12 PM
--- NOTE | 2021-03-19 19:13 | Emergency Department Note ---
Impression & Plan CVA (cerebral vascular accident), Atrial flutter, Weakness ED Provider Note NAME: VIGNESH STAFFORD AGE: 76 SEX: F ARRIVES VIA: Ambulance INFORMANT: Patient, Son ED PROVIDER(S): Adolfo Sethi MD CHIEF COMPLAINT: Weakness PLAN: Disposition: Admit MEDICAL DECISION MAKING: The patient is a pleasant 76-year-old woman with a past medical history of chronic pain on oral Dilaudid at home, CHF, diabetes, hypertension, history of Galeas's palsy, ambulatory dysfunction. recurrent falls, h/o remote SDH who presents to the emergency department via EMS for evaluation after she was found lying on the floor next to her bed this morning. The patient denies falling however recalls attempting to get out of bed but was unable to get back into bed doing to weakness in her legs and so lowered herself to the ground and slept there until morning. She denies any acute pain and only endorses generalized body pain which is chronic for her. Patient's son reports that he had noticed that the patient had some mild slurred speech Friday which he wondered if it could be related to "having a bad day" and possibly related to her her residual Galeas's palsy and medications. However he did notice the following day that while there was some improvement she did have some intermittent slurring of her speech. He does report that the patient is noncompliant frequently with her home medications at home. She does have a home nurse that does come to her home but the patient otherwise lives by herself. The patient was most recently admitted to the hospital at the end of October 2020 for weakness and fall. EKG demonstrates suspected atrial flutter with variable AV block, no overt acute ischemia. Chest x-ray negative for acute cardiopulmonary process. WBC, H/H and platelets within normal limits. Chemistry without metabolic acidosis. Electrolytes and LFTs without significant abnormality. Troponin negative/undetectable. UA without convincing evidence of infection. Covid-19 RNA, NAAT negative. CT of the head and CTA of head and neck was performed and demonstrates acute to subacute 2.2 cm infarct in the right basal ganglia. No severe narrowing or occlusion of large vessels. Patient agrees with plan for admission. Findings and plan were reviewed with the patient's son over the phone. He also agrees with plan for admission. Agrees that given he noticed a change from the patient's baseline several days ago suspect CT findings are c orrelated with this. Per EMS, the patient has a history of atrial fibrillation though, unable to find documentation this at this time. The patient is on Plavix. Will defer management to admitting team. Case was discussed with KYLE Montgomery with KYLE Rudd hospitalist, who will evaluate the patient for admission. Triage Nursing notes reviewed and agree them. Prior medical records reviewed Vital Signs: reviewed and remarkable for tachycardia. Differential diagnosis: Infection, dehydration, metabolic abnormality, hypo/hyperglycemia, electrolyte disturbance, anemia, hypoxia, cardiac sources, intracerebral event, toxicologic, neurologic, as well as other pathologies. ER treatment provided: See below. Diagnostics interpreted by me: ECG: Suspected Atrial flutter, 127 bpm, no ectopy, no overt ST elevation or depression. Cardiac Monitoring: An order for continuous cardiac monitoring was placed and demonstrated Suspected Atrial flutter, 127 bpm, no ectopy. Laboratory studies: See below Imaging studies: See below Consultation(s): Case was discussed with KYLE Montgomery with [facility] hospitalist, who will evaluate the patient for admission. HPI: The patient is a pleasant 76-year-old woman with a past medical history of chronic pain on oral Dilaudid at home, CHF, diabetes, hypertension, history of Galeas's palsy, ambulatory dysfunction. recurrent falls, h/o remote SDH who presents to the emergency department via EMS for evaluation after she was found lying on the floor next to her bed this morning. The patient denies falling however recalls attempting to get out of bed but was unable to get back into bed doing to weakness in her legs and so lowered herself to the ground and slept there until morning. She denies any acute pain and only endorses generalized body pain which is chronic for her. Patient's son reports that he had noticed that the patient had some mild slurred speech Friday which he wondered if it could be related to "having a bad day" and possibly related to her her residual Galeas's palsy and medications. However he did notice the following day that while there was some improvement she did have some intermittent slurring of her speech. He does report that the patient is noncompliant frequently with her home medications at home. She does have a home nurse that does come to her home but the patient otherwise lives by herself. The patient was most recently admitted to the hospital at the end of October 2020 for weakness and fall. ROS: See above HPI for pertinent positives & negatives. A total of 10 systems reviewed and were otherwise negative. PAST MEDICAL HISTORY:See Below PAST SURGICAL HISTORY:See Below FAMILY HISTORY:See Below SOCIAL HISTORY:See Below HOME MEDICATIONS:See Below ALLERGIES:See Below VITALS:See Below PHYSICAL EXAMINATION: GENERAL: Awake, alert, uncomfortable-appearing, in no distress HENT: Normocephalic, atraumatic. Oropharynx with dry mucous membranes and otherwise unremarkable. EYES: Normal conjunctiva. Sclera non-icteric. NECK: Supple. No nuchal rigidity. FROM. No JVD. RESPIRATORY: Clear to auscultation. CARDIAC: Tachycardic rate, irregular rhythm. Extremities warm and well perfused. Pulses equal. ABDOMEN: Soft, non-distended. No tenderness to palpation. No rebound or guarding. No masses. RECTAL: Deferred. MUSCULOSKELETAL: Chest examination reveals no tenderness. The back is symmetrical on inspection without obvious abnormality. No midline CTL spine tenderness to palpation or step-offs. Pelvis is stable. Hips FROM bilaterally. LOWER EXTREMITIES: Calves are equal size bilaterally and non-tender. No edema. No discoloration. NEURO: Right-sided Galeas's palsy persists. No focal extremity weakness. No aphasia. SKIN: No rash or jaundice noted. Adolfo Sethi MD Past Med/Surg History Medical History Ambulatory dysfunction Anemia Asthma CHF (congestive heart failure) Chronic back pain (06/14/12) Cirrhosis Noted on CT scan 09/08/2020 Confusion Dehydration Diabetes DVT (deep venous thrombosis) Fall Fall from standing Gout HTN (hypertension) Hypomagnesemia Intracranial hemorrhage (03/04/14) Recurrent falls (10/04/12) Rhabdomyolysis Rheumatoid arthritis (08/12/12) Sleep apnea (04/27/12) Subdural hematoma Weakness Surgical History H/O shoulder surgery History of hysterectomy Hx of appendectomy S/P cholecystectomy S/P IVC filter Family History Other Hypertension Seizures Social History Smoking Status: Never smoker Hx Alcohol Use: No Hx Substance Use: No Preferred Language: Indonesian Communication Ability: Effective Visual Impairment: No Limitations 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: Normal Polysomnographic Tech Required: No Beliefs That Will Affect Care: None marital status: / Current Living Situation: Alone Current Living Situation Comment: Condo Other Information That Helps Us Care for You: No Feels Safe at Home: Yes Safety Concerns: Feels Safe At This Time Assistive Devices: Denture - Upper, Denture - Lower and Glasses Allergies Allergies Allergy/AdvReac Type Severity Reaction Status Date / Time Cephalosporins Allergy Intermediate RINGING OF Verified 03/19/21 10:41 EARS,FALLING BALANCE ISSUES prochlorperazine Allergy Intermediate STROKE Verified 03/19/21 10:41 LIKE SYMPTOMS, CAN'T TALK linezolid AdvReac Intermediate diarrhea,vo Verified 03/19/21 10:41 miting tramadol AdvReac Intermediate UNSTEADY Verified 03/19/21 10:41 ON FEET, HYPERACTIVITY morphine AdvReac Unknown NOT Verified 03/19/21 10:41 EFFECTIVE Home Meds Home Medications Medication Instructions Recorded Confirmed aspirin 81 mg tablet,delayed 81 mg PO QAM 10/21/17 03/19/21 release (Aspirin Low Dose) clonidine HCl 0.1 mg tablet 0.1 mg PO BID 10/21/17 03/19/21 clopidogrel 75 mg tablet 75 mg PO QAM 10/21/17 03/19/21 duloxetine 60 mg capsule,delayed 60 mg PO QAM 10/21/17 03/19/21 release ferrous sulfate 325 mg (65 mg 325 mg PO QAM 10/21/17 03/19/21 iron) tablet pantoprazole 40 mg tablet,delayed 40 mg PO QAM 10/21/17 03/19/21 release potassium gluconate 595 mg (99 mg) 595 mg PO QAM 10/21/17 03/19/21 tablet melatonin 5 mg tablet 10 mg PO HS 12/13/17 03/19/21 magnesium oxide 500 mg capsule 500 mg PO QAM 12/17/18 03/19/21 hydromorphone 4 mg tablet 4 mg PO 5XD PRN 12/26/19 03/19/21 carvedilol 12.5 mg tablet 12.5 mg PO BID 11/11/20 03/19/21 ipratropium 0.5 mg-albuterol 3 mg 3 ml INHALATION QID PRN 11/11/20 03/19/21 (2.5 mg base)/3 mL nebulization soln ipratropium 20 mcg-albuterol 100 1 puff INHALATION QID 11/11/20 03/19/21 mcg/actuation mist for inhalation (Combivent Respimat) metformin 500 mg tablet,extended 500 mg PO DAILY 11/11/20 03/19/21 release 24 hr rosuvastatin 20 mg tablet 20 mg PO HS 11/11/20 03/19/21 Previous Rx's Medication Instructions Recorded diclofenac sodium 1 % topical gel 2 g TOPICAL BID PRN #100 g 09/13/20 aspirin 325 mg tablet 650 mg PO TID PRN #0 tab 11/12/20 furosemide 20 mg tablet 20 mg PO DAILY 30 Days #30 tab 11/12/20 insulin detemir U-100 100 unit/mL 20 unit SUBCUT QAM #0 ml 11/12/20 (3 mL) subcutaneous pen (Levemir FlexTouch U-100 Insulin) lisinopril 40 mg tablet 20 mg PO QAM 30 Days #15 tab 11/12/20 Results & Data (ED) Vital Signs Vital Signs - 24 hr 03/19/21 10:16 03/19/21 10:32 03/19/21 13:00 Temperature 36.4 C L Temperature Source Oral Pulse Rate 102 H Pulse Rate [Right Finger] 71 Pulse Rhythm Irregular Pulse Rhythm [Right Finger] Irregular Pulse Strength [Right Finger] Normal Respiratory Rate 15 18 Respiratory Effort / Characteristics Non-Labored Respiratory Depth Normal Respiratory Pattern Regular Blood Pressure 125/95 Blood Pressure [Right Arm] 150/87 H Blood Pressure Mean 105 Blood Pressure Mean [Right Arm] 108 Blood Pressure Position [Right Arm] Lying Pulse Oximetry 96 96 Oxygen Delivery Method Room Air Room Air Room Air Sepsis Recent Fever Within 48 Hours No Sepsis New/Unexplained Change in Mental Status No Sepsis Action Taken by Nursing No Action Required 03/19/21 15:00 Temperature Temperature Source Pulse Rate Pulse Rate [Right Finger] 88 Pulse Rhythm Pulse Rhythm [Right Finger] Irregular Pulse Strength [Right Finger] Normal Respiratory Rate 19 Respiratory Effort / Characteristics Non-Labored Respiratory Depth Normal Respiratory Pattern Regular Blood Pressure Blood Pressure [Right Arm] 138/93 Blood Pressure Mean Blood Pressure Mean [Right Arm] 108 Blood Pressure Position [Right Arm] Lying Pulse Oximetry 97 Oxygen Delivery Method Room Air Sepsis Recent Fever Within 48 Hours Sepsis New/Unexplained Change in Mental Status Sepsis Action Taken by Nursing Laboratory Data Attestation: I reviewed the patient's lab results. Result diagrams: 03/19/21 22:37 03/19/21 10:40 Lab Results 03/19/21 03/19/21 03/19/21 Range/Units 09:58 10:15 10:40 WBC 7.74 (4.8-10.8) K/uL RBC 4.94 (4.2-5.4) M/uL Hgb 15.2 (12.0-16.0) g/dL Hct 44.9 (37-47) % MCV 90.9 (80-100) fL MCH 30.8 (25-34) pg MCHC 33.9 (32-36) g/dL RDW Std Deviation 43.0 (36.4-46.3) fL RDW Coeff of [place] 13.1 (11.5-14.5) % Plt Count 209 (130-400) K/uL MPV 11.7 H (7.4-10.4) fL Immature Gran % (Auto) 0.1 % Neut % (Auto) 75.2 % Lymph % (Auto) 19.3 % [place] % (Auto) 4.3 % Eos % (Auto) 1.0 % Baso % (Auto) 0.1 % Neut # (Auto) 5.82 (1.4-6.5) K/uL Lymph # (Auto) 1.49 (1.2-3.4) K/uL [place] # (Auto) 0.33 (0.11-0.59) K/uL Eos # (Auto) 0.08 (0-0.5) K/uL Baso # (Auto) 0.01 (0-0.2) K/uL Immature Gran # (Auto) 0.01 (0.00-0.02) K/uL PT (9.0-12.0) Seconds INR (0.9-1.1) Sodium (136-145) mmol/L Potassium (3.5-5.1) mmol/L Chloride (98-107) mmol/L Carbon Dioxide (21-32) mmol/L Anion Gap (3-11) BUN (6-23) mg/dl Creatinine (0.6-1.2) mg/dl Est Cr Clr Drug Dosing ml/min Est GFR ( Amer) ml/min Est GFR (Non-Af Amer) ml/min BUN/Creatinine Ratio (10-20) Glucose (70-99(Fasting)) mg/dl POC Glucose 149 H (70-99) mg/dl Calcium (8.5-10.1) mg/dl Phosphorus (2.5-4.9) mg/dl Magnesium (1.7-2.4) mg/dl Total Bilirubin (0.2-1.0) mg/dl AST (13-39) U/L ALT (7-52) U/L Alkaline Phosphatase (34-104) U/L Troponin I (0-0.04) ng/ml Total Protein (6.0-8.3) gm/dl Albumin (3.4-5.0) gm/dl Globulin (2.5-4.0) gm/dl Albumin/Globulin Ratio (0.9-2) Lipase (11-82) U/L Urine Color Dark Yellow Urine Appearance Clear (Clear) Urine pH 5.0 (4.5-7.5) Ur Specific [place] 1.024 (1.000-1.030) Urine Protein Trace H (Negative) Urine Glucose (UA) Negative (Negative) Urine Ketones Trace H (Negative) Urine Blood Negative (Negative) Urine Nitrite Negative (Negative) Urine Bilirubin Negative (Negative) Urine Urobilinogen Negative (Negative) Ur Leukocyte Esterase Trace H (Negative) Urine WBC (Auto) 1-5 (0-5) /hpf Urine RBC (Auto) 0-4 (0-4) /hpf U Hyaline Cast (Auto) 1-5 (0-5) /lpf U Epithel Cells (Auto) 10-20 H (0-5) /lpf Urine Bacteria (Auto) Negative (Negative) SARS-CoV-2, RNA, NAAT (NEGATIVE) 03/19/21 03/19/21 03/19/21 Range/Units 10:40 10:40 11:15 WBC (4.8-10.8) K/uL RBC (4.2-5.4) M/uL Hgb (12.0-16.0) g/dL Hct (37-47) % MCV (80-100) fL MCH (25-34) pg MCHC (32-36) g/dL RDW Std Deviation (36.4-46.3) fL RDW Coeff of [place] (11.5-14.5) % Plt Count (130-400) K/uL MPV (7.4-10.4) fL Immature Gran % (Auto) % Neut % (Auto) % Lymph % (Auto) % [place] % (Auto) % Eos % (Auto) % Baso % (Auto) % Neut # (Auto) (1.4-6.5) K/uL Lymph # (Auto) (1.2-3.4) K/uL [place] # (Auto) (0.11-0.59) K/uL Eos # (Auto) (0-0.5) K/uL Baso # (Auto) (0-0.2) K/uL Immature Gran # (Auto) (0.00-0.02) K/uL PT 10.8 (9.0-12.0) Seconds INR 1.1 (0.9-1.1) Sodium 136 (136-145) mmol/L Potassium 3.9 (3.5-5.1) mmol/L Chloride 96 L (98-107) mmol/L Carbon Dioxide 32 (21-32) mmol/L Anion Gap 8 (3-11) BUN 21 (6-23) mg/dl Creatinine 0.78 (0.6-1.2) mg/dl Est Cr Clr Drug Dosing 63.4 ml/min Est GFR ( Amer) 85.0 ml/min Est GFR (Non-Af Amer) 73.3 ml/min BUN/Creatinine Ratio 26.9 H (10-20) Glucose 174 H (70-99(Fasting)) mg/dl POC Glucose (70-99) mg/dl Calcium 9.2 (8.5-10.1) mg/dl Phosphorus 3.9 (2.5-4.9) mg/dl Magnesium 1.7 (1.7-2.4) mg/dl Total Bilirubin 0.8 (0.2-1.0) mg/dl AST 14 (13-39) U/L ALT 8 (7-52) U/L Alkaline Phosphatase 102 (34-104) U/L Troponin I < 0.03 (0-0.04) ng/ml Total Protein 7.9 (6.0-8.3) gm/dl Albumin 4.1 (3.4-5.0) gm/dl Globulin 3.8 (2.5-4.0) gm/dl Albumin/Globulin Ratio 1.1 (0.9-2) Lipase 11 (11-82) U/L Urine Color Urine Appearance (Clear) Urine pH (4.5-7.5) Ur Specific [place] (1.000-1.030) Urine Protein (Negative) Urine Glucose (UA) (Negative) Urine Ketones (Negative) Urine Blood (Negative) Urine Nitrite (Negative) Urine Bilirubin (Negative) Urine Urobilinogen (Negative) Ur Leukocyte Esterase (Negative) Urine WBC (Auto) (0-5) /hpf Urine RBC (Auto) (0-4) /hpf U Hyaline Cast (Auto) (0-5) /lpf U Epithel Cells (Auto) (0-5) /lpf Urine Bacteria (Auto) (Negative) SARS-CoV-2, RNA, NAAT NEGATIVE (NEGATIVE) Administered Medications Acetaminophen (Acetaminophen 325 Mg Tab) 650 mg PO Q4H PRN PRN Reason: Pain or Fever Stop: 04/18/21 21:51 Last Admin: 03/19/21 22:53 Dose: 650 mg Documented by: [id number] Carvedilol (Carvedilol 12.5 Mg Tab) 12.5 mg PO BID [facility] Stop: 04/18/21 21:51 Last Admin: 03/19/21 22:52 Dose: 12.5 mg Documented by: [id number] Heparin Sodium/Dextrose (Heparin Sodium/Dextrose) 25,000 units in 500 mls @ 16 mls/hr IV .Q24H [facility]; Protocol Stop: 04/18/21 21:51 Last Admin: 03/19/21 23:12 Dose: 800 units/hr, 16 mls/hr Documented by: [id number] Cosigned by: [id number] Insulin Aspart (Insulin Aspart Per Unit) 0 units SC ACHS [facility] Stop: 04/18/21 21:51 Last Admin: 03/19/21 22:52 Dose: 4 units Documented by: [id number] Cosigned by: [id number] Melatonin (Melatonin 3 Mg Tab) 9 mg PO HSZ PRN PRN Reason: Sleep Stop: 04/18/21 22:01 Last Admin: 03/19/21 22:54 Dose: 9 mg Documented by: [id number] Rosuvastatin Calcium (Rosuvastatin Calcium 20 Mg Tab) 20 mg PO HS [facility] Stop: 04/18/21 21:51 Last Admin: 03/19/21 22:52 Dose: 20 mg Documented by: [id number] Discontinued Medications Hydromorphone HCl (Hydromorphone Hcl 2 Mg Tab) 4 mg PO NOW STA Stop: 03/19/21 12:46 Last Admin: 03/19/21 12:57 Dose: 4 mg Documented by: [id number] Sodium Chloride (Nss) 500 mls @ 999 mls/hr IV .Q31M ONE Stop: 03/19/21 11:20 Last Infusion: 03/19/21 13:44 Dose: 0 mls/hr Documented by: [id number] Admin: 03/19/21 12:58 Dose: 999 mls/hr Documented by: [id number] Acetaminophen (Ofirmev) 1,000 mg in 100 mls @ 400 mls/hr IV NOW STA Stop: 03/19/21 12:59 Last Infusion: 03/19/21 13:43 Dose: 0 mls/hr Documented by: [id number] Admin: 03/19/21 12:58 Dose: 400 mls/hr Documented by: [id number] Magnesium Sulfate/Dextrose (Magnesium Sulfate / D5w) 1 gm in 100 mls @ 50 mls/hr IV Q2H STA Stop: 03/19/21 19:38 Last Infusion: 03/19/21 21:14 Dose: 0 mls/hr Documented by: [id number] Admin: 03/19/21 18:30 Dose: 50 mls/hr Documented by: [id number] Magnesium Sulfate/Dextrose (Magnesium Sulfate / D5w) 1 gm in 100 mls @ 100 mls/hr IV NOW STA Stop: 03/19/21 22:28 Last Infusion: 03/19/21 22:35 Dose: 0 mls/hr Documented by: [id number] Admin: 03/19/21 21:30 Dose: 100 mls/hr Documented by: [id number] Ioversol (Optiray 320 125ml) 120 ml IV ONCE ONE Stop: 03/19/21 12:46 Last Admin: 03/19/21 12:41 Dose: 120 ml Documented by: [id number] Imaging Data Radiologist's Impression: Head CT 03/19/21 10:[address], HEAD & NECK CTA HISTORY: fall, weakness, slurred speech, h/o bells palsey TECHNIQUE: Multiaxial CT images of the head were performed both before and after the intravenous administration of contrast to evaluate the major cerebral vessels. Multiaxial CT images of the neck were also performed following the intravenous administration of contrast to evaluate the major cervical vessels. Maximum intensity projection images were also obtained. A dose lowering technique was utilized adhering to the principles of ALARA. COMPARISON: Head CT 11/03/2020 FINDINGS: NONCONTRAST HEAD CT: The paranasal sinuses and mastoid air cells are clear. The calvarium and skull base are intact. The ventricles and sulci demonstrate mild age-related involutional changes. Mild microvascular ischemic change also noted. There is a new hypodense focus within the right basal ganglia measuring up to 2.2 cm consistent with an acute to subacute infarct. No hemorrhage or midline shift identified. No intracranial mass is present.. HEAD CTA: Visualized intracranial internal carotid arteries, distal vertebral arteries, and basilar artery are widely patent. There is no significant stenosis, occlusion, or aneurysm seen within the bilateral ACAs, MCAs, or graphics edit technician. The major dural venous sinuses are patent. Mild calcified plaque within the bilateral carotid siphons. NECK CTA: The aortic arch and proximal great vessels are widely patent. There is no significant stenosis, occlusion, or dissection identified within the bilateral common carotid, internal carotid, or vertebral arteries. Mild calcified plaque within the bilateral carotid bifurcations. IMPRESSION: 1. There is an acute to subacute 2.2 cm infarct within the right basal ganglia. 2. No significant stenosis, occlusion, or aneurysm within the eek of [place]. 3. No significant stenosis, occlusion, or dissection identified within the carotid or vertebral arteries. ACT 112: Negative or not required by law. Electronically signed by: Sam Antony M.D. 03/19/2021 1:00 PM Head CTA 03/19/21 10:[address], HEAD & NECK CTA HISTORY: fall, weakness, slurred speech, h/o bells palsey TECHNIQUE: Multiaxial CT images of the head were performed both before and after the intravenous administration of contrast to evaluate the major cerebral vessels. Multiaxial CT images of the neck were also performed following the intravenous administration of contrast to evaluate the major cervical vessels. Maximum intensity projection images were also obtained. A dose lowering technique was utilized adhering to the principles of ALARA. COMPARISON: Head CT 11/03/2020 FINDINGS: NONCONTRAST HEAD CT: The paranasal sinuses and mastoid air cells are clear. The calvarium and skull base are intact. The ventricles and sulci demonstrate mild age-related involutional changes. Mild microvascular ischemic change also noted. There is a new hypodense focus within the right basal ganglia measuring up to 2.2 cm consistent with an acute to subacute infarct. No hemorrhage or midline shift identified. No intracranial mass is present.. HEAD CTA: Visualized intracranial internal carotid arteries, distal vertebral arteries, and basilar artery are widely patent. There is no significant stenosis, occlusion, or aneurysm seen within the bilateral ACAs, MCAs, or graphics edit technician. The major dural venous sinuses are patent. Mild calcified plaque within the bilateral carotid siphons. NECK CTA: The aortic arch and proximal great vessels are widely patent. There is no significant stenosis, occlusion, or dissection identified within the bilateral common carotid, internal carotid, or vertebral arteries. Mild calcified plaque within the bilateral carotid bifurcations. IMPRESSION: 1. There is an acute to subacute 2.2 cm infarct within the right basal ganglia. 2. No significant stenosis, occlusion, or aneurysm within the eek of [place]. 3. No significant stenosis, occlusion, or dissection identified within the carotid or vertebral arteries. ACT 112: Negative or not required by law. Electronically signed by: Sam Antony M.D. 03/19/2021 1:00 PM Neck CTA 03/19/21 10:[address], HEAD & NECK CTA HISTORY: fall, weakness, slurred speech, h/o bells palsey TECHNIQUE: Multiaxial CT images of the head were performed both before and after the intravenous administration of contrast to evaluate the major cerebral vessels. Multiaxial CT images of the neck were also performed following the intravenous administration of contrast to evaluate the major cervical vessels. Maximum intensity projection images were also obtained. A dose lowering technique was utilized adhering to the principles of ALARA. COMPARISON: Head CT 11/03/2020 FINDINGS: NONCONTRAST HEAD CT: The paranasal sinuses and mastoid air cells are clear. The calvarium and skull base are intact. The ventricles and sulci demonstrate mild age-related involutional changes. Mild microvascular ischemic change also noted. There is a new hypodense focus within the right basal ganglia measuring up to 2.2 cm consistent with an acute to subacute infarct. No hemorrhage or midline shift identified. No intracranial mass is present.. HEAD CTA: Visualized intracranial internal carotid arteries, distal vertebral arteries, and basilar artery are widely patent. There is no significant stenosis, occlusion, or aneurysm seen within the bilateral ACAs, MCAs, or graphics edit technician. The major dural venous sinuses are patent. Mild calcified plaque within the bilateral carotid siphons. NECK CTA: The aortic arch and proximal great vessels are widely patent. There is no significant stenosis, occlusion, or dissection identified within the bilateral common carotid, internal carotid, or vertebral arteries. Mild calcified plaque within the bilateral carotid bifurcations. IMPRESSION: 1. There is an acute to subacute 2.2 cm infarct within the right basal ganglia. 2. No significant stenosis, occlusion, or aneurysm within the eek of [place]. 3. No significant stenosis, occlusion, or dissection identified within the carotid or vertebral arteries. ACT 112: Negative or not required by law. Electronically signed by: Sam Antony M.D. 03/19/2021 1:00 PM Brain MRI 03/19/21 16:30 MRI OF THE BRAIN WITHOUT CONTRAST CLINICAL HISTORY: stroke evaluation COMPARISON STUDY: MRI of the brain March 05, 2014. Head CT and CTA of the head March 19, 2021. TECHNIQUE: Utilizing a 1.5 Lu magnet and dedicated coil, multiplanar, multiecho imaging of the brain was performed without IV contrast. FINDINGS: Note is made of a 2.2 cm focus of restricted diffusion within the right basal ganglia and right external capsule. This corresponds to the finding on head CT performed earlier today. This has slight inherent T1 hyperintensity. No additional foci of restricted diffusion are present. Mild ventricular dilatation is due to atrophy. Basal cisterns are patent. There are no extra axial collections. White matter T2 hyperintense foci reflect small vessel disease. Incidental note is made of ossification along the falx. There is a lipoma of the superior scalp. Calvarial signal is within normal limits. No intracranial masses identified on this unenhanced exam. There are no extra-axial fluid collection. Basal cisterns are patent. IMPRESSION: 1. 2.2 cm acute to subacute infarct within the right basal ganglia and right external capsule. No mass effect. This contains slight inherent T1 hyperintensity. This could reflect trace blood products or laminar necrosis. Short-term follow-up head CT in 24 to 48 hours is recommended. 2. White matter T2 hyperintense foci consistent with small vessel disease. ACT 112: Negative or not required by law. Electronically signed by: Jerome Lowry M.D. 03/19/2021 6:12 PM Discharge Plan Visit Data Chief Complaint: Weakness ED Provider: Adolfo Sethi Discharge Problem: CVA (cerebral vascular accident), Atrial flutter, Weakness Patient Disposition: Admitted As Inpatient Discharge Instructions Interventions: ED Discharge Assessment Last Done: 03/19/21 19:28 Discharge Problem: CVA (cerebral vascular accident) Qualifiers: CVA mechanism: unspecified Qualified Code(s): I63.9 - Cerebral infarction, unspecified Atrial flutter Qualifiers: Atrial flutter type: unspecified Qualified Code(s): I48.92 - Unspecified atrial flutter
[2021-03-19] MEDS ORDERED: GLUCOSE 10 TABS/TUBE PO PRN (21:52)
[2021-03-19] MEDS ORDERED: GLUCAGON FOR INJ 1 MG VIAL SQ PRN (21:52)
[2021-03-19] MEDS ORDERED: CARBOHYDRATES FOR HYPOGLYCEMIA PO PRN (21:52)
[2021-03-19] MEDS ORDERED: DEXTROSE 50% 50 ML SYRINGE IV PRN (21:52)
[2021-03-19] MEDS ORDERED: IPRATROPIUM BROMIDE/ALBUTEROL respimat INH INH SCH (21:52)
[2021-03-19] MEDS ORDERED: GLUCOSE 40% GEL 15 GM TUBE PO PRN (21:52)
[2021-03-19] MEDS ORDERED: Heparin IV Adult Wt-Based Low-Dose *NO* Bolus Protocol IV ONE (21:52)
[2021-03-19] MEDS ORDERED: ONDANSETRON INJ 2 MG/ML 2 ML VIAL IV PRN (21:52)
[2021-03-19] MEDS ORDERED: ALBUT/IPRATROP 3MG/0.5MG NEB 3 ML VIAL INH PRN (21:52)
[2021-03-19] MEDS ORDERED: PHARMACIST DISCHARGE MED REC CONSULT PRN (21:52)
[2021-03-19] MEDS: carvediloL 12.5 MG TAB PO SCH (22:52)
[2021-03-19] MEDS: ROSUVASTATIN CALCIUM 20 MG TAB PO SCH (22:52)
[2021-03-19] MEDS: INSULIN ASPART PER UNIT SC SCH (22:52)
[2021-03-19] MEDS: ACETAMINOPHEN 325 MG TAB PO PRN (22:53)
[2021-03-19] MEDS: MELATONIN 3 MG TAB PO PRN (22:54)
[2021-03-19 22:57] LABS: Basophils # (auto) 0.01 K/uL (0-0.2); Basophils % (auto) 0.1 %; Eosinophils # (auto) 0.08 K/uL (0-0.5); Eosinophils % (auto) 1.1 %; Hematocrit (blood only) 38.4 % (37-47); Immature Granulocytes # (auto) 0.01 K/uL (0.00-0.02); Immature Granulocytes % (auto) 0.1 %; Lymphocytes # (auto) 2.05 K/uL (1.2-3.4); Lymphocytes % (auto) 27.6 %; Mean Corpuscular Hemoglobin 30.7 pg (25-34); Mean Corpuscular Volume 90.8 fL (80-100); Mean Platelet Volume 11.2 fL (7.4-10.4); Monocytes # (auto) 0.44 K/uL (0.11-0.59); Monocytes % (auto) 5.9 %; Neutrophils # (auto) 4.85 K/uL (1.4-6.5); Neutrophils % (auto) 65.2 %; Platelet Count 187 K/uL (130-400); RDW Coefficient of Variation 13.2 % (11.5-14.5); RDW Standard Deviation 43.3 fL (36.4-46.3); Red Blood Count 4.23 M/uL (4.2-5.4); White Blood Count 7.44 K/uL (4.8-10.8)
[2021-03-19 22:58] LABS: Mean Corpuscular Hgb Conc 33.9 g/dL (32-36)
[2021-03-19 23:08] LABS: INR 1.1 (0.9-1.1); Partial Thromboplastin Time 26.7 Seconds (21.0-31.0); Prothrombin Time 10.7 Seconds (9.0-12.0)
[2021-03-19] MEDS: HEPARIN SODIUM/DEXTROSE 25,000 UNITS/500 ML BAG IV SCH (23:12)
[2021-03-20] MEDS ORDERED: ACETAMINOPHEN 325 MG TAB PO STA (00:25)
[2021-03-20 06:10] LABS: Basophils # (auto) 0.02 K/uL (0-0.2); Basophils % (auto) 0.3 %; Eosinophils # (auto) 0.11 K/uL (0-0.5); Eosinophils % (auto) 1.5 %; Hematocrit (blood only) 37.4 % (37-47); Hemoglobin 12.4 g/dL (12.0-16.0); Immature Granulocytes # (auto) 0.01 K/uL (0.00-0.02); Immature Granulocytes % (auto) 0.1 %; Lymphocytes # (auto) 2.62 K/uL (1.2-3.4); Lymphocytes % (auto) 35.2 %; Mean Corpuscular Hgb Conc 33.2 g/dL (32-36); Mean Corpuscular Volume 90.3 fL (80-100); Mean Platelet Volume 11.4 fL (7.4-10.4); Monocytes # (auto) 0.48 K/uL (0.11-0.59); Monocytes % (auto) 6.5 %; Neutrophils % (auto) 56.4 %; Platelet Count 196 K/uL (130-400); RDW Coefficient of Variation 13.1 % (11.5-14.5); RDW Standard Deviation 43.1 fL (36.4-46.3); Red Blood Count 4.14 M/uL (4.2-5.4); White Blood Count 7.44 K/uL (4.8-10.8)
--- NOTE | 2021-03-20 06:27 | Electrocardiogram Report ---
Test Reason : Blood Pressure : / mmHG Vent. Rate : 127 BPM Atrial Rate : 113 BPM P-R Int : 000 ms QRS Dur : 086 ms QT Int : 352 ms P-R-T Axes : 000 -41 080 degrees QTc Int : 511 ms Atrial fibrillation with rapid ventricular response Nonspecific T wave abnormality Left axis deviation Abnormal ECG When compared with ECG of 03-NOV-2020 16:14, Atrial fibrillation has replaced Sinus rhythm HR has increased by 42 bpm Confirmed by Alen Moreno ([id number]) on 03/20/2021 6:26:58 AM Referred By: REFERRED SELF Confirmed By:Alen Moreno
[2021-03-20 06:56] LABS: BUN Creatinine Ratio 25.7 (10-20); Calcium 8.2 mg/dl (8.5-10.1); Creatinine Clr Calc Pharmacy 64.5 ml/min; Est GFR (African American) 90.6 ml/min; Est GFR (Non-African American) 78.1 ml/min; Magnesium 1.9 mg/dl (1.7-2.4); Potassium 2.8 mmol/L (3.5-5.1)
[2021-03-20] MEDS: Ipratropium HFA Inhaler (Combivent Respimat P&T Subs) INH SCH ×4 (07:07→18:57)
[2021-03-20] MEDS: Albuterol HFA 8 GM Inhaler (Combivent Respimat P&T Subs) INH SCH ×4 (07:07→18:56)
[2021-03-20 07:28] LABS: Estimated Average Glucose 183 mg/dl
[2021-03-20 07:40] LABS: Partial Thromboplastin Time 78.6 Seconds (21.0-31.0)
--- NOTE | 2021-03-20 08:44 | Neurology Consultation ---
Date of Consultation March 20, 2021 Assessment & Plan (1) CVA (cerebral vascular accident): Acute to subacute ischemic stroke within the right basal ganglia/external capsule, presenting with a mild to moderate left hemiparesis. May have a subtle element of left hemiinattention as well. Insulin-dependent type 2 diabetes mellitus is a notable stroke risk factor for this patient. Atrial fibrillation/atrial flutter identified on recent ECGs. She also has a probable diabetic peripheral neuropathy. The observed subacute to acute infarct does have some evidence of trace blood products versus laminar necrosis on MRI. Would recommend a follow-up CT of the head tonight to ensure stability. Continue with heparin drip. Agree with starting a direct oral anticoagulant such as Xarelto or Eliquis for secondary stroke risk reduction. However, would ensure stability of patient's acute to subacute infarct on follow-up CT of the head before starting an oral anticoagulant. Remain off antiplatelet medication in anticipation of starting a direct oral anticoagulant. Patient will need ongoing follow-up with her PCP and other providers for management of diabetes mellitus, hypertension, dyslipidemia and other cardiovascular risk factors going forward. Patient will need evaluation with PT/OT/speech therapy. Patient's left-sided deficits are of mild to moderate severity although she may have an element of mild left hemiattention which could have a negative impact on rehabilitation. She also has left shoulder arthropathy which would likely have a negative impact on rehab potential. History of Present Illness Reason for Consultation: stroke Requesting Physician: KEILY Montgomery Attending Physician: Boni Hylton History of Present Illness Patient is a 76-year-old female who presented to the emergency department yesterday with a chief complaint of left-sided weakness. She was reportedly found lying on the floor next to her bed. She had indicated that she had been attempting to get out of bed but was unable to do so and apparently slid herself down to the floor where she was found the following morning. No indication of any fall or significant injury. She reportedly began to exhibit some slurred speech and left facial weakness on Friday. However, the symptoms may been attributed to her prior history of Galeas's palsy. Nonetheless, she then began to notice some left-sided weakness by the following day. Currently, she reports le ft-sided heaviness/weakness, arm and leg. Also reports a moderate frontal headache which seems to be new. No vision loss. Denies any difficulty with swallowing. She is right-handed. History notable for insulin-dependent type 2 diabetes mellitus. Electrocardiogram completed yesterday revealed atrial fibrillation with rapid ventricular response. A CT of the head at the time of presentation revealed an acute to subacute 2.2 cm infarct within the right basal ganglia. CT angiography of the head and neck was unremarkable. MRI of the brain revealed a 2.2 acute to subacute infarct within the right basal ganglia and right external capsule. No mass-effect. There is slight associated T1 hyperintensity which could potentially reflect trace blood products or laminar necrosis. Short-term follow-up CT of the head was recommended. Study also notable for chronic small vessel disease. I reviewed the images as well as the radiologist's interpretation of these tests and agree. Allergies Allergy/AdvReac Type Severity Reaction Status Date / Time Cephalosporins Allergy Intermediate RINGING OF Verified 03/19/21 10:41 EARS,FALLING BALANCE ISSUES prochlorperazine Allergy Intermediate STROKE Verified 03/19/21 10:41 LIKE SYMPTOMS, CAN'T TALK linezolid AdvReac Intermediate diarrhea,vo Verified 03/19/21 10:41 miting tramadol AdvReac Intermediate UNSTEADY Verified 03/19/21 10:41 ON FEET, HYPERACTIVITY morphine AdvReac Unknown NOT Verified 03/19/21 10:41 EFFECTIVE Home Medications Medication Instructions Recorded Confirmed Type aspirin 81 mg tablet,delayed 81 mg PO COUNTS INCLUDE 234 BEDS AT THE [facility] 10/21/17 03/19/21 History release (Aspirin Low Dose) clonidine HCl 0.1 mg tablet 0.1 mg PO BID 10/21/17 03/19/21 History clopidogrel 75 mg tablet 75 mg PO QA 10/21/17 03/19/21 History duloxetine 60 mg capsule,delayed 60 mg PO QAM 10/21/17 03/19/21 History release ferrous sulfate 325 mg (65 mg 325 mg PO QA 10/21/17 03/19/21 History iron) tablet pantoprazole 40 mg tablet,delayed 40 mg PO QAM 10/21/17 03/19/21 History release potassium gluconate 595 mg (99 mg) 595 mg PO QAM 10/21/17 03/19/21 History tablet melatonin 5 mg tablet 10 mg PO HS 12/13/17 03/19/21 History magnesium oxide 500 mg capsule 500 mg PO QA 12/17/18 03/19/21 History hydromorphone 4 mg tablet 4 mg PO 5XD PRN 12/26/19 03/19/21 History diclofenac sodium 1 % topical gel 2 g TOPICAL BID PRN #100 g 09/13/20 03/19/21 Rx carvedilol 12.5 mg tablet 12.5 mg PO BID 11/11/20 03/19/21 History ipratropium 0.5 mg-albuterol 3 mg 3 ml INHALATION QID PRN 11/11/20 03/19/21 History (2.5 mg base)/3 mL nebulization soln ipratropium 20 mcg-albuterol 100 1 puff INHALATION QID 11/11/20 03/19/21 History mcg/actuation mist for inhalation (Combivent Respimat) metformin 500 mg tablet,extended 500 mg PO DAILY 11/11/20 03/19/21 History release 24 hr rosuvastatin 20 mg tablet 20 mg PO HS 11/11/20 03/19/21 History aspirin 325 mg tablet 650 mg PO TID PRN #0 tab 11/12/20 03/19/21 Rx furosemide 20 mg tablet 20 mg PO DAILY 30 Days #30 tab 11/12/20 03/19/21 Rx insulin detemir U-100 100 unit/mL 20 unit SUBCUT QAM #0 ml 11/12/20 03/19/21 Rx (3 mL) subcutaneous pen (Levemir FlexTouch U-100 Insulin) lisinopril 40 mg tablet 20 mg PO QAM 30 Days #15 tab 11/12/20 03/19/21 Rx Patient History Medical History Ambulatory dysfunction Anemia Asthma CHF (congestive heart failure) Chronic back pain (06/14/12) Cirrhosis Noted on CT scan 09/08/2020 Confusion Dehydration Diabetes DVT (deep venous thrombosis) Fall Fall from standing Gout HTN (hypertension) Hypomagnesemia Intracranial hemorrhage (03/04/14) Recurrent falls (10/04/12) Rhabdomyolysis Rheumatoid arthritis (08/12/12) Sleep apnea (04/27/12) Subdural hematoma Weakness Surgical History H/O shoulder surgery History of hysterectomy Hx of appendectomy S/P cholecystectomy S/P IVC filter Family History Other Hypertension Seizures Social History Smoking Status: Never smoker Hx Alcohol Use: No Hx Substance Use: No Preferred Language: Beninese Communication Ability: Effective Visual Impairment: No Limitations 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: Normal Research Nurse Practitioner Required: No Beliefs That Will Affect Care: None marital status: / Current Living Situation: Alone Current Living Situation Comment: Condo Other Information That Helps Us Care for You: No Feels Safe at Home: Yes Safety Concerns: Feels Safe At This Time Assistive Devices: Denture - Upper, Denture - Lower and Glasses Review of Systems Constitutional: no fever and no chills Eyes: no blind spots and no diplopia Ear, Nose, Mouth, Throat: no ear pain and no hearing loss Respiratory: no cough and no dyspnea Cardiovascular: no chest pain and no palpitations Gastrointestinal: no constipation and no diarrhea/loose stools Genitourinary: no urinary urgency and no urinary incontinence Musculoskeletal: + joint pain (left shoulder, in sling); no muscle atrophy Integumentary: no rash and no lesions Neurologic: as per Subjective / HPI, + gait abnormality, + localized weakness, + loss of sensation, + paresthesia and + headache(s); no syncope, no abnormal speech and no memory loss Psychiatric: no behavioral changes, no depression, no abnormal sleep pattern and no anxiety Hematologic / Lymphatic: no easy bruising and no lymphadenopathy Exam (Neuro) Constitutional: well developed and well nourished; no acute distress Eyes: normal visual manrique by confrontation, PERRL, normal accommodation and EOM intact bilaterally; no fundoscopic abnormality, no nystagmus and no papill edema Cardiovascular: Vessels: normal carotid upstroke; no carotid bruit Neurologic: Oriented to:: Person, Place and Time Memory: Short Term Intact and Remote Intact Attention: Span Intact and Concentration Intact Language: Naming Objects and Repeating Phrases Speech Fluency: negative Dysarthria Speech Aphasia: negative Aphasia Fund of Knowledge: Current Events, Past History and Vocabulary Cranial Nerves: Normal II (Visual manrique full to confrontation, visual acuity normal), III, IV, (Pupils equal round reactive to light and accommodation, eye movements normal), V (Facial sensation intact), VIII (Hearing intact), IX, X (Palate elevates to midline), XI (Shoulder shrug intact) and XII (Tongue protrudes to midline); Abnorm VII (There is flattening of the left nasolabial fold) Motor Strength: Pronator Drift Laterality: Left and Hemiparesis (mild to moderate) Laterality: Left; negative Normal Lower Extremities or Normal Upper Extremities Motor Tone: Normal Lower Extremities and Normal Upper Extremities Muscle Bulk/Involuntary Movements: No Involuntary Movements; negative Muscle Atrophy Sensation: negative Light Touch Intact, Pain/Temperature Intact, Vibration Intact or Proprioception Intact Coordination: Finger-Nose Abnormal Laterality: Left and Heel-Rodriguez Abnormal Laterality: Left; negative Dysdiadochokinesia Deep Tendon Reflexes: Rt Triceps: 1+, Lt Triceps: 1+, Rt Biceps: 1+, Lt Biceps: 1+, Rt Brachioradialis: 1+, Lt Brachioradialis: 1+, Rt Patellar: 1+, Lt Patellar: 1+, Rt Ankle: 0 and Lt Ankle: 0 Special Tests: Babinski Present (left) Details: Gait cannot be tested in the context of patient's current neurological status. Results & Data ([facility]) Vital Signs (Past 12 Hours) Vital Signs Temp Pulse Pulse Resp BP Pulse Ox 03/20/21 07:30 36.2 C L 70 16 138/68 98 03/20/21 07:19 63 03/20/21 07:10 67 18 97 03/20/21 03:55 36.4 C L 65 18 126/66 97 03/20/21 00:49 87 03/19/21 21:52 37 C 77 18 110/70 100 Laboratory Results WBC 7.44, hemoglobin 12.4, hematocrit 37.4, platelet count 196, sodium 135, potassium 2.8, BUN 19, creatinine 0.74, glucose 114, hemoglobin A1c 8.0, calcium 8.2, magnesium 1.9, AST 14, ALT 8, troponin less than 0.03, triglycerides 79, cholesterol 149, LDL 103, VLDL 16, HDL [address] of the head, CT angiography of the head and neck, and brain MRI are as described in the history of present illness. I reviewed the images as well as the radiologist's interpretation of these tests. Electrocardiogram completed yesterday revealed atrial fibrillation with rapid ventricular response. Electrocardiogram completed today revealed sinus rhythm with first-degree AV block. An echocardiogram completed September 08, 2020 revealed normal left ventricular systolic function, EF 60 to 65%, normal left ventricular wall motion, moderate concentric left ventricular hypertrophy, grade 1 diastolic dysfunction, mild valvular aortic stenosis, mild aortic regurgitation, left atrium moderately dilated, right atrium mildly dilated, interatrial septum intact with no evidence for atrial septal defect. Coding Level of Care Code 98699 Initial In Care Lvl 3 Diagnoses CVA (cerebral vascular accident) I63.9 CVA mechanism: unspecified (1) CVA (cerebral vascular accident) CVA mechanism: unspecified Qualified Code(s): I63.9 - Cerebral infarction, unspecified
[2021-03-20] MEDS: PANTOprazole 40 MG TAB PO SCH (08:56)
[2021-03-20] MEDS: carvediloL 12.5 MG TAB PO SCH ×2 (08:56→19:34)
[2021-03-20] MEDS: DULoxetine HCL 60 MG CAP PO SCH (08:57)
[2021-03-20] MEDS: FERROUS SULFATE 325 MG TAB PO SCH (08:57)
[2021-03-20] MEDS: INSULIN ASPART PER UNIT SC SCH ×5 (09:01→21:57)
[2021-03-20] MEDS: DICLOFENAC SOD 1% GEL 100 GM TUBE EXT SCH ×3 (09:02→19:35)
[2021-03-20 14:24] LABS: Partial Thromboplastin Ratio 2.8
[2021-03-20 14:29] LABS: Partial Thromboplastin Time 73.9 Seconds (21.0-31.0)
--- NOTE | 2021-03-20 17:16 | XCELERA ---
[id number]
[2021-03-20] MEDS: ROSUVASTATIN CALCIUM 20 MG TAB PO SCH (19:36)
[2021-03-20] MEDS: ACETAMINOPHEN 325 MG TAB PO PRN (21:02)
--- NOTE | 2021-03-20 21:15 | Hospitalist Progress Note ---
Date of Service March 20, 2021 Assessment & Plan (1) CVA (cerebral vascular accident): Plan: Right sided basal ganglial ischemic stroke- acute to subacute - Risk factors: HTN, HLD, DM, New onset Afib/Aflutter - Time last known well was either last night (03/18/21 or Friday) - Hold asa/Plavix in lieu of heparin drip- transition to oral DOAC when able - Follow q2 hour neurological exams- any change obtain head CT without contrast for hemorrhagic conversion - MRI: Acute to subacute ischemic stroke within the right basal ganglia/external capsule - checked Lipids in morning- continue rosuvastatin 20mg LDL above goal. - ECHO in morning: pending - Allow for permissive HTN - Speech evaluation for swallow eval - Neurology consult- already discussed with Dr. Albarran - Provide stroke education - Monitor telemetry 24-48 hours -patient requires placement. will transition to DOAC in AM, (2) Atrial flutter: Plan: New onset- - rate variable as well as variable atrial conduction - rate controlled currently- continue with carvedilol - Magnesium 1.7- replace with 2GM mag - follow rate and rhythm control -cont IV heparin. 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 - left shoulder and arm chronically weak and decrease movement (6) DVT (deep venous thrombosis): Plan: History from patient reveals DVT multiple in legs in past with intolerance to Coumadin with leg swelling - With IVC filter- still in place noted on CT abdomen and Pelvis 10/31 - SCDs- Heparin drip for Afib/Aflutter (7) CHF (congestive heart failure): Plan: HFpEF- EF 60-65% in 08/30 normal wall motion mild AR and stenosis- follow with holding of CLEMENT - Continue Carvedilol 12.5mg BID (8) Chronic pain: Plan: Continue diclofenac hold hydromorphone (9) S/P IVC filter: Plan: As above - (10) Asthma: Plan: Continue ipratropium/albuterol - Continue Respimat (11) Diabetes: Plan: DMII on Insulin and Metformin at home - HGB A1c in morning - Hold basal insulin for tonight with juan decrease oral intake - sliding scale with aspart 20 CF with ration 1:15- Goal <180 (12) Depression: Plan: Anxiety and Depression with ? HX of Bi-polar- reported by son - PCP is [facility]- if need to adjust/confirm above dx - Continue Duloxetine (13) History of subdural hematoma: Admission and Anticipated Discharge Date Admission Date: March 19, 2021 Subjective Patient reports feeling better, however she continues to have weakness in her left side. 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 4/5, sensory and motor intact speech clear and appropriate, sensation intact and equal all extremities and dermatomes, no difficulty reading, mild slurring of words Chest: equal rise and fall of the chest, no accessory muscle use, no heaves or thrills, Clear to auscultation, on room air, Cardiac: Regular rate and rhythm, telemetry reviewed (Afib/Aflutter), skin warm dry, cap refill <3 seconds, peripheral pulses +2 no JVD, no murmur, no edema GI: NABS x 4 quadrants, soft, nontender to palpation, no rebound, guarding or tenderness : Spontaneously voiding, no pain, no CVA tenderness, Extremities: Normal inspection, no peripheral edema or erythema, calfs nontender to palpation Psych: Normal mood and affect Skin: well healing ulcerations to right toes Results & Data Results & Data ([facility]) Vital Signs (Past 12 Hours) Vital Signs Temp Pulse Pulse Resp BP BP Pulse Ox 03/20/21 19:40 67 18 97 03/20/21 19:17 36.5 C 64 20 135/77 98 03/20/21 15:44 66 03/20/21 15:02 36.4 C L 69 18 126/68 98 03/20/21 14:16 67 18 95 03/20/21 10:57 76 18 97 PG Care Time/CCT Total # of Minutes Spent Total Time Spent with Patient: Total time spent is greater than 50% in coordination of care (as documented) at patient's floor/unit and/or counseling patient: Coding Level of Care Code 62206 Subseq Hosp Care Lvl 3 Diagnoses CVA (cerebral vascular accident) I63.9 CVA mechanism: unspecified Atrial flutter I48.92 Atrial flutter type: unspecified HTN (hypertension) I10 Hypertension type: essential hypertension Arthritis M19.90 DJD of shoulder M19.019 DVT (deep venous thrombosis) I82.409 CHF (congestive heart failure) I50.9 Chronic pain G89.29 Chronic pain type: other chronic pain S/P IVC filter Z95.828 Asthma J45.909 Diabetes E11.9 Depression F32.A History of subdural hematoma Z86.79 (1) CVA (cerebral vascular accident) CVA mechanism: unspecified Qualified Code(s): I63.9 - Cerebral infarction, unspecified (2) Atrial flutter Atrial flutter type: unspecified Qualified Code(s): I48.92 - Unspecified atrial flutter (3) HTN (hypertension) Hypertension type: essential hypertension Qualified Code(s): I10 - Essential (primary) hypertension (4) Chronic pain Chronic pain type: other chronic pain Qualified Code(s): G89.29 - Other chronic pain
[2021-03-20] MEDS: HEPARIN SODIUM/DEXTROSE 25,000 UNITS/500 ML BAG IV SCH (21:36)
[2021-03-20 22:11] LABS: Partial Thromboplastin Ratio 2.5; Partial Thromboplastin Time 65.6 Seconds (21.0-31.0)
--- NOTE | 2021-03-20 22:32 | Electrocardiogram Report ---
Test Reason : Blood Pressure : / mmHG Vent. Rate : 079 BPM Atrial Rate : 312 BPM P-R Int : 000 ms QRS Dur : 098 ms QT Int : 404 ms P-R-T Axes : 000 -46 003 degrees QTc Int : 463 ms Atrial fibrillation with premature ventricular or aberrantly conducted complexes Left anterior fascicular block Abnormal ECG When compared with ECG of 19-MAR-2021 10:13, Vent. rate has decreased BY 48 BPM T wave amplitude has decreased in Anterior leads Nonspecific T wave abnormality no longer evident in Lateral leads Confirmed by Alen Moreno ([id number]) on 03/20/2021 10:31:51 PM Referred By: REFERRED SELF Confirmed By:Alen Moreno
[2021-03-21] MEDS: ACETAMINOPHEN 325 MG TAB PO PRN ×4 (05:30→23:04)
[2021-03-21 06:35] LABS: Basophils # (auto) 0.02 K/uL (0-0.2); Basophils % (auto) 0.3 %; Eosinophils # (auto) 0.09 K/uL (0-0.5); Eosinophils % (auto) 1.2 %; Hematocrit (blood only) 35.8 % (37-47); Immature Granulocytes # (auto) 0.02 K/uL (0.00-0.02); Immature Granulocytes % (auto) 0.3 %; Lymphocytes # (auto) 2.37 K/uL (1.2-3.4); Lymphocytes % (auto) 32.2 %; Mean Corpuscular Hemoglobin 30.2 pg (25-34); Mean Corpuscular Hgb Conc 33.5 g/dL (32-36); Mean Corpuscular Volume 90.2 fL (80-100); Mean Platelet Volume 11.9 fL (7.4-10.4); Monocytes # (auto) 0.49 K/uL (0.11-0.59); Monocytes % (auto) 6.7 %; Neutrophils # (auto) 4.37 K/uL (1.4-6.5); Neutrophils % (auto) 59.3 %; Platelet Count 165 K/uL (130-400); RDW Standard Deviation 42.2 fL (36.4-46.3); Red Blood Count 3.97 M/uL (4.2-5.4); White Blood Count 7.36 K/uL (4.8-10.8)
[2021-03-21 06:44] LABS: BUN Creatinine Ratio 18.8 (10-20); Calcium 8.6 mg/dl (8.5-10.1); Creatinine Clr Calc Pharmacy 59.6 ml/min; Est GFR (African American) 82.4 ml/min; Est GFR (Non-African American) 71.1 ml/min; Magnesium 1.9 mg/dl (1.7-2.4)
--- NOTE | 2021-03-21 06:45 | Electrocardiogram Report ---
Test Reason : Blood Pressure : / mmHG Vent. Rate : 067 BPM Atrial Rate : 067 BPM P-R Int : 212 ms QRS Dur : 096 ms QT Int : 450 ms P-R-T Axes : 115 -39 033 degrees QTc Int : 475 ms Poor data quality, interpretation may be adversely affected Sinus rhythm with 1st degree A-V block Left axis deviation Nonspecific T wave abnormality Abnormal ECG When compared with ECG of 19-MAR-2021 16:38, Sinus rhythm has replaced Atrial fibrillation Nonspecific T wave abnormality now evident in Lateral leads Confirmed by Alen Moreno ([id number]) on 03/21/2021 6:45:13 AM Referred By: REFERRED SELF Confirmed By:Alen Moreno
[2021-03-21 06:50] LABS: Partial Thromboplastin Ratio 2.4
[2021-03-21 06:55] LABS: Partial Thromboplastin Time 62.8 Seconds (21.0-31.0)
[2021-03-21] MEDS: Albuterol HFA 8 GM Inhaler (Combivent Respimat P&T Subs) INH SCH ×4 (07:05→19:36)
[2021-03-21] MEDS: Ipratropium HFA Inhaler (Combivent Respimat P&T Subs) INH SCH ×4 (07:05→19:36)
[2021-03-21] MEDS: carvediloL 12.5 MG TAB PO SCH ×2 (08:09→20:31)
[2021-03-21] MEDS: PANTOprazole 40 MG TAB PO SCH (08:10)
[2021-03-21] MEDS: INSULIN ASPART PER UNIT SC SCH ×4 (08:10→20:32)
[2021-03-21] MEDS: FERROUS SULFATE 325 MG TAB PO SCH (08:10)
[2021-03-21] MEDS: DULoxetine HCL 60 MG CAP PO SCH (08:10)
--- NOTE | 2021-03-21 10:08 | Neurology Progress Note ---
Date of Service March 21, 2021 Assessment & Plan (1) CVA (cerebral vascular accident): Plan: Acute to subacute ischemic stroke within the right basal ganglia presenting with a mild to moderate left hemiparesis. Has an element of left hemiinattention as well. Stroke risk factors include atrial fibrillation/atrial flutter, and type 2 diabetes mellitus. I have ordered a follow-up CT of the head to reassess the previous identified trace blood products versus laminar necrosis associated with the observed subacute to acute infarct within her right basal ganglia. Follow-up CT of the head stable would recommend starting a direct oral anticoagulant such as Xarelto or Eliquis. Patient will need ongoing follow-up with her PCP and other providers for management of diabetes mellitus, hypertension, and dyslipidemia. PT/OT/speech therapy. Element of left hemineglect will need additional attention with rehab services. Left shoulder pathology noted as well. Admission and Anticipated Discharge Date Admission Date: March 19, 2021 Subjective Follow-up for stroke The patient continues to complain of weakness affecting the left hand. Her weakness has been stable, however. She denies headache or change in vision at this time. Continues to report mild numbness affecting the distal lower extremities bilaterally. Continues to report some difficulty moving the left shoulder due to arthropathy, history of left shoulder surgery. Recent diagnosis of atrial fibrillation noted, remains on heparin drip with intention to start a direct oral anticoagulant during this hospitalization. Echocardiogram completed yesterday revealed normal left ventricular size and systolic function, EF 55 to 60%, no regional wall motion abnormalities, no left ventricular hypertrophy. There was severe left atrial dilation and mild right atrial dilation. The aortic valve is sclerotic with trace regurgitation. Findings similar compared with previous echocardiogram done in August 2020. An electrocardiogram completed this morning reveals a sinus rhythm with first-degree AV block and premature atrial complexes. Review of Systems Eyes: no blind spots and no diplopia Neurologic: as per Subjective / HPI Results & Data ([facility]) Vital Signs (Past 12 Hours) Vital Signs Temp Pulse Pulse Resp BP Pulse Ox 03/21/21 07:15 60 18 96 03/21/21 07:06 36.5 C 60 18 172/73 H 97 03/21/21 04:17 36.6 C 63 18 164/68 H 98 03/20/21 23:24 60 03/20/21 22:53 36.8 C 63 20 122/73 96 Laboratory Results WBC 7.36, hemoglobin 12.0, hematocrit 35.8, platelet count 165, sodium 135, potassium 3.0, BUN 15, creatinine 0.80, glucose 140, calcium 8.6, magnesium 1.9 Exam (Neuro) Neurologic: Oriented to:: Person, Place and Time Attention: Span Intact and Concentration Intact Speech Fluency: negative Dysarthria or Dysfluency Fund of Knowledge: Current Events, Past History and Vocabulary Cranial Nerves: Normal II, III, IV, , V, VIII, IX, X, XI and XII; Abnorm VII (Flattening of left nasolabial fold noted) Motor Strength: Hemiparesis (mild to moderate) Laterality: Left Coordination: Finger-Nose Abnormal Laterality: Left Deep Tendon Reflexes: Rt Biceps: 1+, Lt Biceps: 1+, Rt Patellar: 1+ and Lt Patellar: 1+ Special Tests: Babinski Present (left) Details: Leaning in bed to the right. Coding Level of Care Code 26304 Subseq Hosp Care Lvl 2 Diagnoses CVA (cerebral vascular accident) I63.9 CVA mechanism: unspecified (1) CVA (cerebral vascular accident) CVA mechanism: unspecified Qualified Code(s): I63.9 - Cerebral infarction, unspecified
--- NOTE | 2021-03-21 11:49 | CT Scan Report ---
CT head/brain wo con CLINICAL HISTORY: stroke, r/o hemorrhage Technique: Contiguous axial CT images of the head were acquired from the base of the skull to the agnieszka kerri without intravenous contrast administration. Images were viewed in brain, subdural and bone [facility] . Automated dose lowering techniques and/or adjustment according to patient size were utilized for this exam. Comparison: Comparison is made to CTA head and neck to 729 2 Findings: Areas of decreased attenuation are present in the periventricular and subcortical white matter bilate rally consistent with small vessel ischemic disease. Generalized cerebral atrophy with commensurate e nlargement of the ventricles, sulci, and cisterns is also present. There is a hypodensity in the righ t basal ganglia infarct, again seen. No evidence of hemorrhagic transformation is seen. Imaged portions of the paranasal sinuses and mastoid air cells are clear. The orbits appear normal. There are no acute fractures of the calvaria or scalp swelling. Impression: Redemonstration of right basal ganglia infarct without evidence of hemorrhagic transformation. ACT 112: Negative or not required by law. Electronically signed by: Param Fernandez M.D. 03/21/2021 11:48 AM
[2021-03-21] MEDS ORDERED: POTASSIUM CHLORIDE CRTAB 20 MEQ TABCR PO STA (15:30)
[2021-03-21] MEDS ORDERED: POLYETHYLENE (MIRALAX) 17 GM PACK PO ONE (15:45)
[2021-03-21] MEDS ORDERED: DOCUSATE SODIUM/SENNA 50/8.6MG TAB PO ONE (15:45)
[2021-03-21] MEDS: POLYETHYLENE (MIRALAX) 17 GM PACK PO SCH (20:32)
[2021-03-21] MEDS: ROSUVASTATIN CALCIUM 20 MG TAB PO SCH (20:33)
[2021-03-21] MEDS: POTASSIUM CHLORIDE 10 MEQ TABCR PO SCH (20:33)
--- NOTE | 2021-03-21 22:40 | Hospitalist Progress Note ---
Date of Service March 21, 2021 Assessment & Plan (1) CVA (cerebral vascular accident): Plan: Right sided basal ganglial ischemic stroke- acute to subacute - Risk factors: HTN, HLD, DM, New onset Afib/Aflutter - Time last known well was either last night (03/18/21 or Friday) - Hold asa/Plavix in lieu of heparin drip- transition to oral DOAC when able - Follow q2 hour neurological exams- any change obtain head CT without contrast for hemorrhagic conversion - MRI: Acute to subacute ischemic stroke within the right basal ganglia/external capsule - checked Lipids in morning- continue rosuvastatin 20mg LDL above goal. - ECHO in morning: pending - Allow for permissive HTN - Speech evaluation for swallow eval - Neurology consult- already discussed with Dr. Albarran - Provide stroke education - Monitor telemetry 24-48 hours -patient requires placement. will transition to DOAC in AM, (2) Atrial flutter: Plan: New onset- - rate variable as well as variable atrial conduction - rate controlled currently- continue with carvedilol - Magnesium 1.7- replace with 2GM mag - follow rate and rhythm control -cont IV heparin. 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 - left shoulder and arm chronically weak and decrease movement (6) DVT (deep venous thrombosis): Plan: History from patient reveals DVT multiple in legs in past with intolerance to Coumadin with leg swelling - With IVC filter- still in place noted on CT abdomen and Pelvis 10/31 - SCDs- Heparin drip for Afib/Aflutter (7) CHF (congestive heart failure): Plan: HFpEF- EF 60-65% in 08/30 normal wall motion mild AR and stenosis- follow with holding of CLEMENT - Continue Carvedilol 12.5mg BID (8) Chronic pain: Plan: Continue diclofenac hold hydromorphone (9) S/P IVC filter: Plan: As above - (10) Asthma: Plan: Continue ipratropium/albuterol - Continue Respimat (11) Diabetes: Plan: DMII on Insulin and Metformin at home - HGB A1c in morning - Hold basal insulin for tonight with juan decrease oral intake - sliding scale with aspart 20 CF with ration 1:15- Goal <180 (12) Depression: Plan: Anxiety and Depression with ? HX of Bi-polar- reported by son - PCP is PSH- if need to adjust/confirm above dx - Continue Duloxetine (13) History of subdural hematoma: (14) Hypokalemia: Plan: potassium 3.0 Replaced on 03/21/21 Admission and Anticipated Discharge Date Admission Date: March 19, 2021 Subjective Patient reports no new symptoms. 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,sensory and motor intact speech clear and appropriate, sensation intact and equal all extremities and dermatomes, no difficulty reading, mild slurring of words Chest: equal rise and fall of the chest, no accessory muscle use, no heaves or thrills, Clear to auscultation, on room air, Cardiac: Regular rate and rhythm, telemetry reviewed (Afib/Aflutter), skin warm dry, cap refill <3 seconds, peripheral pulses +2 no JVD, no murmur, no edema GI: NABS x 4 quadrants, soft, nontender to palpation, no rebound, guarding or tenderness : Spontaneously voiding, no pain, no CVA tenderness, Extremities: Normal inspection, no peripheral edema or erythema, calfs nontender to palpation Psych: Normal mood and affect Skin: well healing ulcerations to right toes Results & Data Results & Data ([facility]) Vital Signs (Past 12 Hours) Vital Signs Temp Pulse Resp BP Pulse Ox 03/21/21 19:36 70 18 97 03/21/21 18:30 36.7 C 61 18 142/78 H 98 03/21/21 16:26 61 18 95 03/21/21 14:58 36.7 C 64 18 152/85 H 99 03/21/21 11:45 36.4 C L 61 16 137/76 95 03/21/21 11:00 64 18 96 PG Care Time/CCT Total # of Minutes Spent Total Time Spent with Patient: Total time spent is greater than 50% in coordination of care (as documented) at patient's floor/unit and/or counseling patient: Coding Level of Care Code 99229 Subseq Hosp Care Lvl 2 Diagnoses CVA (cerebral vascular accident) I63.9 CVA mechanism: unspecified Atrial flutter I48.92 Atrial flutter type: unspecified HTN (hypertension) I10 Hypertension type: essential hypertension Arthritis M19.90 DJD of shoulder M19.019 DVT (deep venous thrombosis) I82.409 CHF (congestive heart failure) I50.9 Chronic pain G89.29 Chronic pain type: other chronic pain S/P IVC filter Z95.828 Asthma J45.909 Diabetes E11.9 Depression F32.A History of subdural hematoma Z86.79 Hypokalemia E87.6 (1) CVA (cerebral vascular accident) CVA mechanism: unspecified Qualified Code(s): I63.9 - Cerebral infarction, unspecified (2) Atrial flutter Atrial flutter type: unspecified Qualified Code(s): I48.92 - Unspecified atrial flutter (3) HTN (hypertension) Hypertension type: essential hypertension Qualified Code(s): I10 - Essential (primary) hypertension (4) Chronic pain Chronic pain type: other chronic pain Qualified Code(s): G89.29 - Other chronic pain
[2021-03-22] MEDS: HEPARIN SODIUM/DEXTROSE 25,000 UNITS/500 ML BAG IV SCH (05:32)
[2021-03-22 06:10] LABS: Basophils # (auto) 0.02 K/uL (0-0.2); Basophils % (auto) 0.3 %; Eosinophils # (auto) 0.09 K/uL (0-0.5); Eosinophils % (auto) 1.2 %; Hematocrit (blood only) 34.3 % (37-47); Hemoglobin 11.5 g/dL (12.0-16.0); Immature Granulocytes # (auto) 0.01 K/uL (0.00-0.02); Immature Granulocytes % (auto) 0.1 %; Lymphocytes # (auto) 2.72 K/uL (1.2-3.4); Lymphocytes % (auto) 34.8 %; Mean Corpuscular Hemoglobin 30.3 pg (25-34); Mean Corpuscular Hgb Conc 33.5 g/dL (32-36); Mean Corpuscular Volume 90.5 fL (80-100); Mean Platelet Volume 11.7 fL (7.4-10.4); Monocytes # (auto) 0.48 K/uL (0.11-0.59); Monocytes % (auto) 6.1 %; Neutrophils % (auto) 57.5 %; Platelet Count 171 K/uL (130-400); RDW Standard Deviation 42.8 fL (36.4-46.3); Red Blood Count 3.79 M/uL (4.2-5.4); White Blood Count 7.82 K/uL (4.8-10.8)
--- NOTE | 2021-03-22 06:25 | Electrocardiogram Report ---
Test Reason : Blood Pressure : / mmHG Vent. Rate : 066 BPM Atrial Rate : 066 BPM P-R Int : 218 ms QRS Dur : 106 ms QT Int : 456 ms P-R-T Axes : 076 -28 052 degrees QTc Int : 478 ms Sinus rhythm with 1st degree A-V block with Premature atrial complexes Septal infarct , age undetermined Abnormal ECG When compared with ECG of 20-MAR-2021 06:35, Premature atrial complexes are now Present Nonspecific T wave abnormality no longer evident in Inferior leads Nonspecific T wave abnormality, improved in Anterolateral leads Confirmed by Alen Moreno ([id number] on 03/22/2021 6:25:27 AM Referred By: REFERRED SELF Confirmed By:Alen Moreno
[2021-03-22 06:41] LABS: BUN Creatinine Ratio 20.3 (10-20); Calcium 8.7 mg/dl (8.5-10.1); Creatinine Clr Calc Pharmacy 60.6 ml/min; Est GFR (African American) 83.7 ml/min; Est GFR (Non-African American) 72.2 ml/min; Magnesium 1.8 mg/dl (1.7-2.4)
[2021-03-22 06:43] LABS: Partial Thromboplastin Ratio 2.7
[2021-03-22 06:46] LABS: Partial Thromboplastin Time 70.9 Seconds (21.0-31.0)
[2021-03-22] MEDS: Ipratropium HFA Inhaler (Combivent Respimat P&T Subs) INH SCH ×4 (07:19→19:15)
[2021-03-22] MEDS: Albuterol HFA 8 GM Inhaler (Combivent Respimat P&T Subs) INH SCH ×4 (07:19→19:16)
[2021-03-22] MEDS: INSULIN ASPART PER UNIT SC SCH ×4 (08:28→22:00)
[2021-03-22] MEDS: DICLOFENAC SOD 1% GEL 100 GM TUBE EXT SCH ×3 (08:36→21:50)
[2021-03-22] MEDS: carvediloL 12.5 MG TAB PO SCH ×2 (08:37→21:52)
[2021-03-22] MEDS: FERROUS SULFATE 325 MG TAB PO SCH (08:37)
[2021-03-22] MEDS: DOCUSATE SODIUM/SENNA 50/8.6MG TAB PO SCH (08:37)
[2021-03-22] MEDS: ACETAMINOPHEN 325 MG TAB PO PRN (08:37)
[2021-03-22] MEDS: DULoxetine HCL 60 MG CAP PO SCH (08:37)
[2021-03-22] MEDS: PANTOprazole 40 MG TAB PO SCH (08:38)
[2021-03-22] MEDS: POTASSIUM CHLORIDE 10 MEQ TABCR PO SCH ×3 (08:38→21:50)
[2021-03-22] MEDS: POLYETHYLENE (MIRALAX) 17 GM PACK PO SCH ×2 (08:38→21:50)
[2021-03-22] MEDS: APIXABAN 5 MG TABLET PO SCH ×2 (11:22→21:49)
[2021-03-22] MEDS: oxyCODONE HCL IR 5 MG TAB (IMMEDIATE RELEASE) PO PRN ×2 (12:05→21:48)
[2021-03-22] MEDS: ROSUVASTATIN CALCIUM 20 MG TAB PO SCH (21:51)
--- NOTE | 2021-03-22 22:45 | Hospitalist Progress Note ---
Date of Service March 22, 2021 Assessment & Plan (1) CVA (cerebral vascular accident): Plan: Right sided basal ganglial ischemic stroke- acute to subacute - Risk factors: HTN, HLD, DM, New onset Afib/Aflutter - Time last known well was either last night (03/18/21 or Friday) - Hold asa/Plavix in lieu of heparin drip- transition to oral DOAC when able - Follow q2 hour neurological exams- any change obtain head CT without contrast for hemorrhagic conversion - MRI: Acute to subacute ischemic stroke within the right basal ganglia/external capsule - checked Lipids in morning- continue rosuvastatin 20mg LDL above goal. - ECHO in morning: pending - Allow for permissive HTN - Speech evaluation for swallow eval - Neurology consult- already discussed with Dr. Albarran - Provide stroke education - Monitor telemetry 24-48 hours -patient requires placement. -stopped heparin and started DOAC (2) Atrial flutter: Plan: New onset- - rate variable as well as variable atrial conduction - rate controlled currently- continue with carvedilol - Magnesium 1.7- replace with 2GM mag - follow rate and rhythm control -cont IV heparin. 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 - left shoulder and arm chronically weak and decrease movement (6) DVT (deep venous thrombosis): Plan: History from patient reveals DVT multiple in legs in past with intolerance to Coumadin with leg swelling - With IVC filter- still in place noted on CT abdomen and Pelvis 10/31 - SCDs- Heparin drip for Afib/Aflutter (7) CHF (congestive heart failure): Plan: HFpEF- EF 60-65% in 08/30 normal wall motion mild AR and stenosis- follow with holding of CLEMENT - Continue Carvedilol 12.5mg BID (8) Chronic pain: Plan: Continue diclofenac hold hydromorphone (9) S/P IVC filter: Plan: As above - (10) Asthma: Plan: Continue ipratropium/albuterol - Continue Respimat (11) Diabetes: Plan: DMII on Insulin and Metformin at home - HGB A1c in morning - Hold basal insulin for tonight with juan decrease oral intake - sliding scale with aspart 20 CF with ration 1:15- Goal <180 (12) Depression: Plan: Anxiety and Depression with ? HX of Bi-polar- reported by son - PCP is PSH- if need to adjust/confirm above dx - Continue Duloxetine (13) History of subdural hematoma: (14) Hypokalemia: Plan: potassium 3.0 Replaced on 03/21/21 Admission and Anticipated Discharge Date Admission Date: March 19, 2021 Subjective Patient reports no new symptoms. Review of Systems Review of Systems: All systems reviewed & are unremarkable except as noted in HPI & below Physical Exam Physical Exam: General: awake, alert, no apparent distress Head: Normocephalic, atraumatic ENT: normal inspection Neuro: AAO x 3, PEERLA, vision intact without visual filed deficit appreciated, Tongue midline, difficulty puffing out cheeks, right facial droop,left arm weakness 4/5, left hand salvage diver 4/5,sensory and motor intact speech clear and appropriate, sensation intact and equal all extremities and dermatomes, no difficulty reading, mild slurring of words Chest: equal rise and fall of the chest, no accessory muscle use, no heaves or thrills, Clear to auscultation, on room air, Cardiac: Regular rate and rhythm, telemetry reviewed (Afib/Aflutter), skin warm dry, cap refill <3 seconds, peripheral pulses +2 no JVD, no murmur, no edema GI: NABS x 4 quadrants, soft, nontender to palpation, no rebound, guarding or tenderness : Spontaneously voiding, no pain, no CVA tenderness, Extremities: Normal inspection, no peripheral edema or erythema, calfs nontender to palpation Psych: Normal mood and affect Skin: well healing ulcerations to right toes Results & Data Results & Data ([facility]) Vital Signs (Past 12 Hours) Vital Signs Temp Pulse Pulse Resp BP BP Pulse Ox 03/22/21 19:16 70 18 96 03/22/21 19:06 36.8 C 59 L 18 146/70 H 96 03/22/21 15:13 58 L 03/22/21 14:55 36.5 C 62 20 135/72 98 03/22/21 14:24 58 L 18 96 03/22/21 11:49 36.3 C L 64 20 143/65 H 97 PG Care Time/CCT Total # of Minutes Spent Total Time Spent with Patient: Total time spent is greater than 50% in coordination of care (as documented) at patient's floor/unit and/or counseling patient: Coding Level of Care Code 71375 Subseq Hosp Care Lvl 2 Diagnoses CVA (cerebral vascular accident) I63.9 CVA mechanism: unspecified Atrial flutter I48.92 Atrial flutter type: unspecified HTN (hypertension) I10 Hypertension type: essential hypertension Arthritis M19.90 DJD of shoulder M19.019 DVT (deep venous thrombosis) I82.409 CHF (congestive heart failure) I50.9 Chronic pain G89.29 Chronic pain type: other chronic pain S/P IVC filter Z95.828 Asthma J45.909 Diabetes E11.9 Depression F32.A History of subdural hematoma Z86.79 Hypokalemia E87.6 Time Spent (min) 25 (1) CVA (cerebral vascular accident) CVA mechanism: unspecified Qualified Code(s): I63.9 - Cerebral infarction, unspecified (2) Atrial flutter Atrial flutter type: unspecified Qualified Code(s): I48.92 - Unspecified atrial flutter (3) HTN (hypertension) Hypertension type: essential hypertension Qualified Code(s): I10 - Essential (primary) hypertension (4) Chronic pain Chronic pain type: other chronic pain Qualified Code(s): G89.29 - Other chronic pain
[2021-03-23 06:57] LABS: Partial Thromboplastin Ratio 1.2; Partial Thromboplastin Time 31.3 Seconds (21.0-31.0)
[2021-03-23] MEDS: Ipratropium HFA Inhaler (Combivent Respimat P&T Subs) INH SCH (07:20)
[2021-03-23] MEDS: Albuterol HFA 8 GM Inhaler (Combivent Respimat P&T Subs) INH SCH (07:20)
[2021-03-23] MEDS: carvediloL 12.5 MG TAB PO SCH ×2 (08:00→20:33)
[2021-03-23] MEDS: PANTOprazole 40 MG TAB PO SCH (08:01)
[2021-03-23] MEDS: POTASSIUM CHLORIDE 10 MEQ TABCR PO SCH ×2 (08:01→14:00)
[2021-03-23] MEDS: DOCUSATE SODIUM/SENNA 50/8.6MG TAB PO SCH (08:01)
[2021-03-23] MEDS: FERROUS SULFATE 325 MG TAB PO SCH (08:01)
[2021-03-23] MEDS: DULoxetine HCL 60 MG CAP PO SCH (08:01)
[2021-03-23] MEDS: INSULIN ASPART PER UNIT SC SCH ×4 (08:13→20:23)
[2021-03-23] MEDS: DICLOFENAC SOD 1% GEL 100 GM TUBE EXT SCH ×3 (08:14→20:32)
[2021-03-23] MEDS ORDERED: ALBUTEROL HFA 8 GM INHALER INH PRN (09:23)
[2021-03-23] MEDS ORDERED: IPRATROPIUM BROMIDE HFA INHALER INH PRN (09:23)
[2021-03-23] MEDS: APIXABAN 5 MG TABLET PO SCH ×2 (10:00→20:33)
[2021-03-23] MEDS: POLYETHYLENE (MIRALAX) 17 GM PACK PO SCH ×2 (11:12→20:33)
[2021-03-23] MEDS: ACETAMINOPHEN 325 MG TAB PO PRN (11:18)
[2021-03-23] MEDS ORDERED: STROKE PATIENT DISCHARGE STA (12:25)
[2021-03-23] MEDS: ROSUVASTATIN CALCIUM 20 MG TAB PO SCH (20:33)
--- NOTE | 2021-03-23 20:34 | Hospitalist Progress Note ---
Date of Service March 23, 2021 Assessment & Plan (1) CVA (cerebral vascular accident): Plan: Right sided basal ganglial ischemic stroke- acute to subacute - Risk factors: HTN, HLD, DM, New onset Afib/Aflutter - Time last known well was either last night (03/18/21 or Friday) - Hold asa/Plavix in lieu of heparin drip- transition to oral DOAC when able - Follow q2 hour neurological exams- any change obtain head CT without contrast for hemorrhagic conversion - MRI: Acute to subacute ischemic stroke within the right basal ganglia/external capsule - checked Lipids in morning- continue rosuvastatin 20mg LDL above goal. - ECHO completed. - Speech evaluation for swallow eval - Neurology consult- already discussed with Dr. Albarran - Provide stroke education -patient requires placement. -stopped heparin and started DOAC (2) Atrial flutter: Plan: New onset- - rate variable as well as variable atrial conduction - rate controlled currently- continue with carvedilol - Magnesium 1.7- replace with 2GM mag - follow rate and rhythm control -On DOAC (3) HTN (hypertension): Plan: Poorly controlled in the past - currently stable - held CLEMENT inhibitor and lasix. will resume in am. 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 - left shoulder and arm chronically weak and decrease movement (6) DVT (deep venous thrombosis): Plan: History from patient reveals DVT multiple in legs in past with intolerance to Coumadin with leg swelling - With IVC filter- still in place noted on CT abdomen and Pelvis 10/31 - SCDs- Heparin drip for Afib/Aflutter (7) CHF (congestive heart failure): Plan: HFpEF- EF 60-65% in 08/30 normal wall motion mild AR and stenosis- follow with holding of CLEMENT - Continue Carvedilol 12.5mg BID (8) Chronic pain: Plan: Continue diclofenac hold hydromorphone (9) S/P IVC filter: Plan: As above - (10) Asthma: Plan: Continue ipratropium/albuterol - Continue Respimat (11) Diabetes: Plan: DMII on Insulin and Metformin at home - HGB A1c in morning - Hold basal insulin for tonight with juan decrease oral intake - sliding scale with aspart 20 CF with ration 1:15- Goal <180 (12) Depression: Plan: Anxiety and Depression with ? HX of Bi-polar- reported by son - PCP is PSH- if need to adjust/confirm above dx - Continue Duloxetine (13) History of subdural hematoma: (14) Hypokalemia: Plan: potassium 3.0 Replaced on 03/21/21 Admission and Anticipated Discharge Date Admission Date: March 19, 2021 Subjective 76 yo female reports no new symptoms. Review of Systems Review of Systems: All systems reviewed & are unremarkable except as noted in HPI & below Physical Exam Physical Exam: General: awake, alert, no apparent distress Head: Normocephalic, atraumatic ENT: normal inspection Neuro: AAO x 3, PEERLA, vision intact without visual filed deficit appreciated, Tongue midline, difficulty puffing out cheeks, right facial droop,left arm weakness 4/5, left hand screw machine operator 4/5,sensory and motor intact speech clear and appropriate, sensation intact and equal all extremities and dermatomes, no difficulty reading, mild slurring of words Chest: equal rise and fall of the chest, no accessory muscle use, no heaves or thrills, Clear to auscultation, on room air, Cardiac: Regular rate and rhythm, telemetry reviewed (Afib/Aflutter), skin warm dry, cap refill <3 seconds, peripheral pulses +2 no JVD, no murmur, no edema GI: NABS x 4 quadrants, soft, nontender to palpation, no rebound, guarding or tenderness : Spontaneously voiding, no pain, no CVA tenderness, Extremities: Normal inspection, no peripheral edema or erythema, calfs nontender to palpation Psych: Normal mood and affect Skin: well healing ulcerations to right toes Results & Data Results & Data ([facility]) Vital Signs (Past 12 Hours) Vital Signs Temp Pulse Pulse Resp BP BP Pulse Ox 03/23/21 19:03 36.7 C 62 18 161/75 H 98 03/23/21 16:29 57 L 03/23/21 15:58 36.7 C 56 L 18 137/68 95 03/23/21 11:39 36.7 C 61 18 148/69 H 96 PG Care Time/CCT Total # of Minutes Spent Total Time Spent with Patient: Total time spent is greater than 50% in coordination of care (as documented) at patient's floor/unit and/or counseling patient: Coding Level of Care Code 90978 Subseq Hosp Care Lvl 2 Diagnoses CVA (cerebral vascular accident) I63.9 CVA mechanism: unspecified Atrial flutter I48.92 Atrial flutter type: unspecified HTN (hypertension) I10 Hypertension type: essential hypertension Arthritis M19.90 DJD of shoulder M19.019 DVT (deep venous thrombosis) I82.409 CHF (congestive heart failure) I50.9 Chronic pain G89.29 Chronic pain type: other chronic pain S/P IVC filter Z95.828 Asthma J45.909 Diabetes E11.9 Depression F32.A History of subdural hematoma Z86.79 Hypokalemia E87.6 Time Spent (min) 25 (1) Chronic pain Chronic pain type: other chronic pain Qualified Code(s): G89.29 - Other chronic pain (2) Atrial flutter Atrial flutter type: unspecified Qualified Code(s): I48.92 - Unspecified atrial flutter (3) HTN (hypertension) Hypertension type: essential hypertension Qualified Code(s): I10 - Essential (primary) hypertension (4) CVA (cerebral vascular accident) CVA mechanism: unspecified Qualified Code(s): I63.9 - Cerebral infarction, unspecified
[2021-03-24 06:46] LABS: Basophils # (auto) 0.01 K/uL (0-0.2); Basophils % (auto) 0.1 %; Eosinophils # (auto) 0.14 K/uL (0-0.5); Hematocrit (blood only) 36.3 % (37-47); Hemoglobin 12.1 g/dL (12.0-16.0); Immature Granulocytes # (auto) 0.01 K/uL (0.00-0.02); Immature Granulocytes % (auto) 0.1 %; Lymphocytes # (auto) 2.31 K/uL (1.2-3.4); Lymphocytes % (auto) 33.1 %; Mean Corpuscular Hemoglobin 30.1 pg (25-34); Mean Corpuscular Hgb Conc 33.3 g/dL (32-36); Mean Corpuscular Volume 90.3 fL (80-100); Mean Platelet Volume 11.2 fL (7.4-10.4); Monocytes # (auto) 0.34 K/uL (0.11-0.59); Monocytes % (auto) 4.9 %; Neutrophils # (auto) 4.17 K/uL (1.4-6.5); Neutrophils % (auto) 59.8 %; Platelet Count 181 K/uL (130-400); RDW Standard Deviation 42.9 fL (36.4-46.3); Red Blood Count 4.02 M/uL (4.2-5.4); White Blood Count 6.98 K/uL (4.8-10.8)
[2021-03-24 06:53] LABS: Partial Thromboplastin Ratio 1.1
[2021-03-24 07:03] LABS: Calcium 9.2 mg/dl (8.5-10.1); Creatinine Clr Calc Pharmacy 57.3 ml/min; Potassium 4.2 mmol/L (3.5-5.1)
[2021-03-24] MEDS: FUROSEMIDE 20 MG TAB PO SCH (08:10)
[2021-03-24] MEDS: lisinopril 20 MG TAB PO SCH (08:10)
[2021-03-24] MEDS: carvediloL 12.5 MG TAB PO SCH ×2 (08:13→20:25)
[2021-03-24] MEDS: DOCUSATE SODIUM/SENNA 50/8.6MG TAB PO SCH (08:13)
[2021-03-24] MEDS: FERROUS SULFATE 325 MG TAB PO SCH (08:13)
[2021-03-24] MEDS: APIXABAN 5 MG TABLET PO SCH ×2 (08:13→20:25)
[2021-03-24] MEDS: DULoxetine HCL 60 MG CAP PO SCH (08:13)
[2021-03-24] MEDS: PANTOprazole 40 MG TAB PO SCH (08:13)
[2021-03-24] MEDS: DICLOFENAC SOD 1% GEL 100 GM TUBE EXT SCH ×3 (08:14→20:24)
[2021-03-24] MEDS: INSULIN ASPART PER UNIT SC SCH ×4 (08:19→20:37)
[2021-03-24] MEDS: ACETAMINOPHEN 325 MG TAB PO PRN (08:28)
[2021-03-24] MEDS: POLYETHYLENE (MIRALAX) 17 GM PACK PO SCH ×2 (11:12→20:25)
[2021-03-24] MEDS: oxyCODONE HCL IR 5 MG TAB (IMMEDIATE RELEASE) PO PRN (13:43)
--- NOTE | 2021-03-24 18:46 | Hospitalist Progress Note ---
Date of Service March 24, 2021 Assessment & Plan (1) CVA (cerebral vascular accident): Plan: Right sided basal ganglial ischemic stroke - acute to subacute. Zahl to be embolic given her afib. - Risk factors: HTN, HLD, DM, New onset Afib/Aflutter - Time last known well was 03/18/2021. - Hold ASA/Plavix in lieu of anticoagulation. - MRI: Acute to subacute ischemic stroke within the right basal ganglia/external capsule - Checked lipids in morning - continue rosuvastatin 20mg LDL above goal. - ECHO completed - no PFO. - Speech evaluation -> No need; passed bedside swallow. - Neurology consulted. - Provide stroke education (2) Atrial flutter: Plan: New onset- - rate variable as well as variable atrial conduction - rate controlled currently - continue with carvedilol - follow rate and rhythm control - On (3) HTN (hypertension): Plan: Poorly controlled in the past. BP presently 145/65. - Continue carvedilol & lisinopril - Added furosemide; monitor Cr (4) Arthritis: Plan: Chronic in left shoulder after shoulder surgery and surgical site infection. 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 - Left shoulder and arm chronically weak and decrease movement. - Pain control as above. (6) CHF (congestive heart failure): Plan: HFpEF - EF 60-65% in 08/2020. Mild AR and stenosis. - Continue carvedilol and lisinopril (7) Chronic pain: Plan: - Continue diclofenac gel (8) S/P IVC filter: Plan: As above (9) Asthma: Plan: Continue ipratropium/albuterol - Continue Respimat (10) Diabetes: Plan: DMII on insulin and metformin at home. A1c this admission was 8.0%. - Defer home long-acting 20 units; believe her intake in the hospital is likely lower than at home. - Sliding scale insulin -> BSs have been 120 - 175 over last 24 hours. (11) Depression: Plan: Anxiety and Depression with ? HX of Bi-polar - reported by son. - PCP is PSH- if need to adjust/confirm above dx - Continue duloxetine (12) History of subdural hematoma: Plan: Repeat CT heads here do not show any bleeding. - Continue anticoagulation for afib & DVT (13) DVT (deep venous thrombosis): Plan: History from patient reveals DVT multiple in legs in past with intolerance to Coumadin with leg swelling. Unsure of timeline as all our Dopplers do not show DVT. - With IVC filter - still in place noted on CT a/p in 10/2020 - On apixaban presently Admission and Anticipated Discharge Date Admission Date: March 19, 2021 Subjective Doing well today. No major issues. Feels well. Has some left shoulder pain. Some right toe pain. Reports no fevers/chills, chest pain, shortness of breath, abdominal pain, nausea, or vomiting. Physical Exam Constitutional: WD/WN, vitals as above Eyes: EOM intact bilaterally; no conjunctival abnormality ENMT: external ear and nose normal, oropharynx normal Neck: trachea midline, no thyromegaly normal visual inspection Respiratory: normal respiratory effort, lungs clear to auscultation no respiratory distress Cardiovascular: RRR, no murmur, no edema Gastrointestinal (Abdomen): Inspection/Auscultation: abdomen normal to inspection; abdomen not distended Musculoskeletal: Shoulder: + shoulder abnormal to inspection (Left in sling) Skin: no rashes, warm and dry Neurologic: moves all extremities and awake Psychiatric: Orientation: alert, oriented to person and cooperative Results & Data Results & Data ([facility]) Vital Signs (Past 12 Hours) Vital Signs Temp Pulse Pulse Resp BP Pulse Ox 03/24/21 16:00 36.7 C 57 L 18 146/67 H 96 03/24/21 15:30 57 L 03/24/21 15:22 57 L 03/24/21 12:00 36.7 C 57 L 18 145/74 H 95 03/24/21 08:00 36.7 C 61 18 163/76 H 96 03/24/21 07:49 56 L PG Care Time/CCT Total # of Minutes Spent Total Time Spent with Patient: Total time spent is greater than 50% in coordination of care (as documented) at patient's floor/unit and/or counseling patient: Coding Level of Care Code 76694 Subseq Hosp Care Lvl 3 Diagnoses CVA (cerebral vascular accident) I63.9 CVA mechanism: unspecified Atrial flutter I48.92 Atrial flutter type: unspecified HTN (hypertension) I10 Hypertension type: essential hypertension Arthritis M19.90 DJD of shoulder M19.019 DVT (deep venous thrombosis) I82.409 CHF (congestive heart failure) I50.9 Chronic pain G89.29 Chronic pain type: other chronic pain S/P IVC filter Z95.828 Asthma J45.909 Diabetes E11.9 Depression F32.A History of subdural hematoma Z86.79 (1) CVA (cerebral vascular accident) CVA mechanism: unspecified Qualified Code(s): I63.9 - Cerebral infarction, unspecified (2) Atrial flutter Atrial flutter type: unspecified Qualified Code(s): I48.92 - Unspecified atrial flutter (3) HTN (hypertension) Hypertension type: essential hypertension Qualified Code(s): I10 - Essential (primary) hypertension (4) Chronic pain Chronic pain type: other chronic pain Qualified Code(s): G89.29 - Other chronic pain
[2021-03-24] MEDS: ROSUVASTATIN CALCIUM 20 MG TAB PO SCH (20:26)
[2021-03-25 06:57] LABS: Partial Thromboplastin Ratio 1.1; Partial Thromboplastin Time 28.8 Seconds (21.0-31.0)
[2021-03-25] MEDS: INSULIN ASPART PER UNIT SC SCH ×4 (08:19→20:15)
[2021-03-25] MEDS: FERROUS SULFATE 325 MG TAB PO SCH (08:20)
[2021-03-25] MEDS: DULoxetine HCL 60 MG CAP PO SCH (08:20)
[2021-03-25] MEDS: APIXABAN 5 MG TABLET PO SCH ×2 (08:20→21:23)
[2021-03-25] MEDS: DOCUSATE SODIUM/SENNA 50/8.6MG TAB PO SCH (08:21)
[2021-03-25] MEDS: FUROSEMIDE 20 MG TAB PO SCH (08:21)
[2021-03-25] MEDS: carvediloL 12.5 MG TAB PO SCH ×2 (08:21→21:24)
[2021-03-25] MEDS: PANTOprazole 40 MG TAB PO SCH (08:21)
[2021-03-25] MEDS: lisinopril 20 MG TAB PO SCH (08:21)
[2021-03-25] MEDS: DICLOFENAC SOD 1% GEL 100 GM TUBE EXT SCH ×3 (09:00→21:25)
[2021-03-25] MEDS: POLYETHYLENE (MIRALAX) 17 GM PACK PO SCH ×2 (09:04→21:24)
--- NOTE | 2021-03-25 12:13 | Hospitalist Progress Note ---
Date of Service March 25, 2021 Assessment & Plan (1) CVA (cerebral vascular accident): Plan: Right sided basal ganglial ischemic stroke - acute to subacute. [place] to be embolic given her afib. - Risk factors: HTN, HLD, DM, New onset Afib/Aflutter - Time last known well was 03/18/2021. - Hold ASA/Plavix in lieu of anticoagulation. - MRI: Acute to subacute ischemic stroke within the right basal ganglia/external capsule - Checked lipids in morning - continue rosuvastatin 20mg LDL above goal. - ECHO completed - no PFO. - Speech evaluation -> No need; passed bedside swallow. - Neurology consulted. - Provide stroke education (2) Atrial flutter: Plan: New onset- - rate variable as well as variable atrial conduction - rate controlled currently - continue with carvedilol - follow rate and rhythm control - On (3) HTN (hypertension): Plan: Poorly controlled in the past. BP presently 160/85. - Continue carvedilol & lisinopril - Added furosemide on 03/24; monitor Cr (4) Arthritis: Plan: Chronic in left shoulder after shoulder surgery and surgical site infection. 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 - Left shoulder and arm chronically weak and decrease movement. - Pain control as above. (6) CHF (congestive heart failure): Plan: HFpEF - EF 60-65% in 08/2020. Mild AR and stenosis. - Continue carvedilol and lisinopril (7) Chronic pain: Plan: - Continue diclofenac gel (8) S/P IVC filter: Plan: As above (9) Asthma: Plan: Continue ipratropium/albuterol - Continue Respimat (10) Diabetes: Plan: DMII on insulin and metformin at home. A1c this admission was 8.0%. - Defer home long-acting 20 units; believe her intake in the hospital is likely lower than at home. - Sliding scale insulin -> BSs have been 120 - 175 over last 24 hours. (11) Depression: Plan: Anxiety and Depression with ? HX of Bi-polar - reported by son. - PCP is P[facility]- if need to adjust/confirm above dx - Continue duloxetine (12) History of subdural hematoma: Plan: Repeat CT heads here do not show any bleeding. - Continue anticoagulation for afib & hx of DVT (13) DVT (deep venous thrombosis): Plan: History from patient reveals DVT multiple in legs in past with intolerance to Coumadin with leg swelling. Unsure of timeline as all our Dopplers do not show DVT. - With IVC filter - still in place noted on CT a/p in 10/2020 - On apixaban presently Admission and Anticipated Discharge Date Admission Date: March 19, 2021 Subjective Sleeping when I arrive. Feels well. Has some left shoulder pain. Some right toe pain. Reports no fevers/chills, chest pain, shortness of breath, abdominal pain, nausea, or vomiting. Physical Exam Constitutional: WD/WN, vitals as above Eyes: EOM intact bilaterally; no conjunctival abnormality ENMT: external ear and nose normal, oropharynx normal Neck: trachea midline, no thyromegaly normal visual inspection Respiratory: normal respiratory effort, lungs clear to auscultation no respiratory distress Cardiovascular: RRR, no murmur, no edema Gastrointestinal (Abdomen): Inspection/Auscultation: abdomen normal to inspection; abdomen not distended Musculoskeletal: Shoulder: + shoulder abnormal to inspection (Left in sling) Skin: no rashes, warm and dry Small ulcers in toe. Neurologic: moves all extremities and awake Psychiatric: Orientation: alert, oriented to person and cooperative Results & Data Results & Data ([facility]) Vital Signs (Past 12 Hours) Vital Signs Temp Pulse Pulse Resp BP Pulse Ox 03/25/21 11:02 36.5 C 58 L 18 160/82 H 98 03/25/21 08:00 36.8 C 63 18 165/94 H 99 03/25/21 07:18 55 L 03/25/21 03:19 36.5 C 69 18 142/68 H 94 PG Care Time/CCT Total # of Minutes Spent Total Time Spent with Patient: Total time spent is greater than 50% in coordination of care (as documented) at patient's floor/unit and/or counseling patient: Coding Level of Care Code 11629 Subseq Hosp Care Lvl 2 Diagnoses CVA (cerebral vascular accident) I63.9 CVA mechanism: unspecified Atrial flutter I48.92 Atrial flutter type: unspecified HTN (hypertension) I10 Hypertension type: essential hypertension Arthritis M19.90 DJD of shoulder M19.019 CHF (congestive heart failure) I50.9 Chronic pain G89.29 Chronic pain type: other chronic pain S/P IVC filter Z95.828 Asthma J45.909 Diabetes E11.9 Depression F32.A History of subdural hematoma Z86.79 DVT (deep venous thrombosis) I82.409 (1) CVA (cerebral vascular accident) CVA mechanism: unspecified Qualified Code(s): I63.9 - Cerebral infarction, unspecified (2) Atrial flutter Atrial flutter type: unspecified Qualified Code(s): I48.92 - Unspecified atrial flutter (3) HTN (hypertension) Hypertension type: essential hypertension Qualified Code(s): I10 - Essential (primary) hypertension (4) Chronic pain Chronic pain type: other chronic pain Qualified Code(s): G89.29 - Other chronic pain
[2021-03-25] MEDS: oxyCODONE HCL IR 5 MG TAB (IMMEDIATE RELEASE) PO PRN ×2 (15:26→21:24)
[2021-03-25] MEDS: ROSUVASTATIN CALCIUM 20 MG TAB PO SCH (21:23)
[2021-03-26 07:17] LABS: Hematocrit (blood only) 40.3 % (37-47); Hemoglobin 13.5 g/dL (12.0-16.0); Mean Corpuscular Hemoglobin 30.8 pg (25-34); Mean Corpuscular Hgb Conc 33.5 g/dL (32-36); Mean Corpuscular Volume 91.8 fL (80-100); Mean Platelet Volume 11.2 fL (7.4-10.4); Platelet Count 196 K/uL (130-400); RDW Coefficient of Variation 13.3 % (11.5-14.5); RDW Standard Deviation 44.8 fL (36.4-46.3); Red Blood Count 4.39 M/uL (4.2-5.4); White Blood Count 8.16 K/uL (4.8-10.8)
[2021-03-26 07:35] LABS: BUN Creatinine Ratio 28.7 (10-20); Calcium 9.3 mg/dl (8.5-10.1); Creatinine Clr Calc Pharmacy 53.9 ml/min; Est GFR (African American) 74.5 ml/min; Est GFR (Non-African American) 64.3 ml/min; Magnesium 1.6 mg/dl (1.7-2.4)
[2021-03-26] MEDS: FERROUS SULFATE 325 MG TAB PO SCH (09:26)
[2021-03-26] MEDS: carvediloL 12.5 MG TAB PO SCH ×2 (09:27→21:14)
[2021-03-26] MEDS: APIXABAN 5 MG TABLET PO SCH ×2 (09:27→21:14)
[2021-03-26] MEDS: PANTOprazole 40 MG TAB PO SCH (09:27)
[2021-03-26] MEDS: lisinopril 20 MG TAB PO SCH (09:27)
[2021-03-26] MEDS: DICLOFENAC SOD 1% GEL 100 GM TUBE EXT SCH (09:28)
[2021-03-26] MEDS: DULoxetine HCL 60 MG CAP PO SCH (09:28)
[2021-03-26] MEDS: FUROSEMIDE 20 MG TAB PO SCH (09:28)
[2021-03-26] MEDS: POLYETHYLENE (MIRALAX) 17 GM PACK PO SCH ×2 (09:30→21:16)
[2021-03-26] MEDS: DOCUSATE SODIUM/SENNA 50/8.6MG TAB PO SCH (09:31)
[2021-03-26] MEDS: INSULIN ASPART PER UNIT SC SCH ×4 (09:33→21:16)
--- NOTE | 2021-03-26 12:02 | Hospitalist Progress Note ---
Date of Service March 26, 2021 Assessment & Plan (1) CVA (cerebral vascular accident): Plan: Right sided basal ganglial ischemic stroke - acute to subacute. [place] to be embolic given her afib. - Risk factors: HTN, HLD, DM, New onset Afib/Aflutter - Time last known well was 03/18/2021. - Hold ASA/Plavix in lieu of anticoagulation. - MRI: Acute to subacute ischemic stroke within the right basal ganglia/external capsule - Checked lipids in morning - continue rosuvastatin 20mg LDL above goal. - ECHO completed - no PFO. - Speech evaluation -> No need; passed bedside swallow. - Neurology consulted. - Provide stroke education - Insurance denied rehab, but approved SNF. CM working on this. (2) Atrial flutter: Plan: New onset. Has now gone back into sinus. - Continue carvedilol - Continue apixaban (3) HTN (hypertension): Plan: Poorly controlled in the past. BP presently 100/45 - 120/60 in last 24 hours. - Continue carvedilol & lisinopril - Added furosemide on 03/24; monitor Cr (4) Diabetes: Plan: DMII on insulin and metformin at home. A1c this admission was 8.0%. - Defer home long-acting 20 units; believe her intake in the hospital is likely lower than at home. - Sliding scale insulin -> BSs have been 120 - 230 over last 24 hours. (5) Arthritis: Plan: Chronic in left shoulder after shoulder surgery and surgical site infection. - Pain control PRN -> Voltaren gel seems to be working. Will want to be careful with it given she is on anticoagulation. While systemic levels are lower than with oral NSAIDs, still has increased risk of GI bleed and kidney injury. 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 - Left shoulder and arm chronically weak and decrease movement. - Pain control as above. (7) CHF (congestive heart failure): Plan: HFpEF - EF 60-65% in 08/2020. Mild AR and stenosis. - Continue carvedilol and lisinopril - Continue Lasix as above - Appears euvolemic for me today. (8) S/P IVC filter: Plan: Unclear date of implantation, but per report had SDH in 2014, so possibly implanted around then. - Continue anticoagulation (9) Asthma: Plan: No wheezing on exam. - Continue ipratropium/albuterol - Continue Respimat (10) Depression: Plan: Anxiety and Depression with ? HX of Bi-polar - reported by son. - PCP is PSH- if need to adjust/confirm above dx - Continue duloxetine (11) History of subdural hematoma: Plan: In 2014. Repeat CT heads here do not show any bleeding. - Continue anticoagulation for afib & hx of DVT (12) DVT (deep venous thrombosis): Plan: History from patient reveals DVT multiple in legs in past with intolerance to Coumadin with leg swelling. Unsure of timeline as all our Dopplers do not show DVT. - With IVC filter - still in place noted on CT a/p in 10/2020 - On apixaban presently Admission and Anticipated Discharge Date Admission Date: March 19, 2021 Subjective Sleeping when I arrive. Feels well. Reports her left shoulder is improved with the Voltaren gel. Reports right toes are less painful today as well. Reports no fevers/chills, chest pain, shortness of breath, abdominal pain, nausea, or vomiting. Physical Exam Constitutional: WD/WN, vitals as above Eyes: EOM intact bilaterally; no conjunctival abnormality ENMT: external ear and nose normal, oropharynx normal Neck: trachea midline, no thyromegaly normal visual inspection Respiratory: normal respiratory effort, lungs clear to auscultation no respiratory distress Cardiovascular: RRR, no murmur, no edema Gastrointestinal (Abdomen): Inspection/Auscultation: abdomen normal to inspection; abdomen not distended Musculoskeletal: Shoulder: + shoulder abnormal to inspection (Left in sling; surgical scar present) Skin: no rashes, warm and dry Two blisters on right toe, stable. Neurologic: moves all extremities and awake Psychiatric: Orientation: alert, oriented to person and cooperative Results & Data Results & Data ([facility]) Vital Signs (Past 12 Hours) Vital Signs Temp Pulse Pulse Resp BP BP Pulse Ox 03/26/21 08:14 36.7 C 68 18 122/63 97 03/26/21 08:00 59 L 03/26/21 04:09 36.5 C 59 L 16 102/43 L 95 PG Care Time/CCT Total # of Minutes Spent Total Time Spent with Patient: Total time spent is greater than 50% in coordination of care (as documented) at patient's floor/unit and/or counseling patient: Coding Level of Care Code 27902 Subseq Hosp Care Lvl 3 Diagnoses CVA (cerebral vascular accident) I63.9 CVA mechanism: unspecified Atrial flutter I48.92 Atrial flutter type: unspecified HTN (hypertension) I10 Hypertension type: essential hypertension Arthritis M19.90 DJD of shoulder M19.019 CHF (congestive heart failure) I50.9 S/P IVC filter Z95.828 Asthma J45.909 Diabetes E11.9 Depression F32.A History of subdural hematoma Z86.79 DVT (deep venous thrombosis) I82.409 (1) CVA (cerebral vascular accident) CVA mechanism: unspecified Qualified Code(s): I63.9 - Cerebral infarction, unspecified (2) Atrial flutter Atrial flutter type: unspecified Qualified Code(s): I48.92 - Unspecified atrial flutter (3) HTN (hypertension) Hypertension type: essential hypertension Qualified Code(s): I10 - Essential (primary) hypertension
[2021-03-26] MEDS: oxyCODONE HCL IR 5 MG TAB (IMMEDIATE RELEASE) PO PRN (12:06)
[2021-03-26] MEDS: MAGNESIUM SULFATE / D5W 1 GM/100 ML BAG IV SCH ×2 (13:24→17:15)
[2021-03-26] MEDS: DICLOFENAC SOD 1% GEL 100 GM TUBE EXT PRN (14:21)
[2021-03-26] MEDS: ROSUVASTATIN CALCIUM 20 MG TAB PO SCH (21:15)
[2021-03-27 06:21] LABS: Hematocrit (blood only) 36.7 % (37-47); Hemoglobin 12.2 g/dL (12.0-16.0); Mean Corpuscular Hemoglobin 30.2 pg (25-34); Mean Corpuscular Hgb Conc 33.2 g/dL (32-36); Mean Corpuscular Volume 90.8 fL (80-100); Mean Platelet Volume 10.4 fL (7.4-10.4); Platelet Count 183 K/uL (130-400); RDW Coefficient of Variation 13.4 % (11.5-14.5); Red Blood Count 4.04 M/uL (4.2-5.4); White Blood Count 8.17 K/uL (4.8-10.8)
[2021-03-27 06:49] LABS: BUN Creatinine Ratio 35.1 (10-20); Calcium 8.7 mg/dl (8.5-10.1); Creatinine Clr Calc Pharmacy 50.7 ml/min; Est GFR (African American) 67.8 ml/min; Est GFR (Non-African American) 58.5 ml/min; Magnesium 2.1 mg/dl (1.7-2.4); Potassium 4.2 mmol/L (3.5-5.1)
[2021-03-27] MEDS: carvediloL 12.5 MG TAB PO SCH ×2 (07:53→21:24)
[2021-03-27] MEDS: POLYETHYLENE (MIRALAX) 17 GM PACK PO SCH ×2 (07:53→23:50)
[2021-03-27] MEDS: APIXABAN 5 MG TABLET PO SCH ×2 (07:53→21:24)
[2021-03-27] MEDS: lisinopril 20 MG TAB PO SCH (07:53)
[2021-03-27] MEDS: DOCUSATE SODIUM/SENNA 50/8.6MG TAB PO SCH (07:54)
[2021-03-27] MEDS: FUROSEMIDE 20 MG TAB PO SCH (07:54)
[2021-03-27] MEDS: FERROUS SULFATE 325 MG TAB PO SCH (07:54)
[2021-03-27] MEDS: PANTOprazole 40 MG TAB PO SCH (07:54)
[2021-03-27] MEDS: DULoxetine HCL 60 MG CAP PO SCH (07:54)
[2021-03-27] MEDS: INSULIN ASPART PER UNIT SC SCH ×4 (08:00→21:20)
[2021-03-27] MEDS: oxyCODONE HCL IR 5 MG TAB (IMMEDIATE RELEASE) PO PRN (12:33)
--- NOTE | 2021-03-27 14:01 | Hospitalist Progress Note ---
Date of Service March 27, 2021 Assessment & Plan (1) CVA (cerebral vascular accident): Plan: Right sided basal ganglial ischemic stroke - acute to subacute on brain MRI [place] to be embolic given her afib. - Risk factors: HTN, HLD, DM, New onset Afib/Aflutter - Time last known well was 03/18/2021. -CT angiogram head and neck negative -Repeat CT head negative for intracranial hemorrhage as initially suspected on CT - Hold ASA/Plavix in lieu of anticoagulation with apixaban - MRI: Acute to subacute ischemic stroke within the right basal ganglia/external capsule - Checked lipids - continue rosuvastatin 20mg LDL above goal. - ECHO completed - no PFO. - Speech evaluation -> No need; passed bedside swallow. - Neurology consulted. - Provide stroke education - Insurance denied rehab, but approved SNF. CM working on this. (2) Atrial flutter: Plan: New onset on admission Has now gone back into sinus and remains there Echocardiogram with preserved EF, no regional wall motion abnormalities, severe left atrial dilation - Continue carvedilol -Started apixaban and discontinued previous dual antiplatelet therapy with aspirin/Plavix Continue telemetry monitoring (3) HTN (hypertension): Plan: Poorly controlled in the past. BP presently fairly well controlled - Continue carvedilol & lisinopril - Added furosemide on 03/24; monitor Cr-remained stable (4) Diabetes: Plan: DMII on insulin and metformin at home. A1c this admission was 8.0%. - Defer home long-acting 20 units; believe her intake in the hospital is likely lower than at home. - Sliding scale insulin -> BSGs have been fairly well controlled (5) Arthritis: Plan: Chronic in left shoulder after shoulder surgery and surgical site infection. Has a history of left shoulder replacement and then subsequent removal Wears left upper extremity in a shoulder sling to help with pain chronically - Pain control PRN -> Voltaren gel seems to be working. Will want to be careful with it given she is on anticoagulation. While systemic levels are lower than with oral NSAIDs, still has increased risk of GI bleed and kidney injury. 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 - Left shoulder and arm chronically weak and decrease movement. - Pain control as above. (7) CHF (congestive heart failure): Plan: HFpEF - EF 60-65% in 08/2020. Mild AR and stenosis. - Continue carvedilol and lisinopril - Continue Lasix as above - Appears euvolemic (8) S/P IVC filter: Plan: Unclear date of implantation, but per report had SDH in 2014, so possibly implanted around then. - Continue anticoagulation (9) Asthma: Plan: No wheezing on exam. - Continue ipratropium/albuterol - Continue Respimat (10) Depression: Plan: Anxiety and Depression with ? HX of Bi-polar - reported by son. - PCP is PSH- if need to adjust/confirm above dx - Continue duloxetine (11) History of subdural hematoma: Plan: In 2014. Repeat CT heads here do not show any bleeding. - Continue anticoagulation for afib & hx of DVT (12) DVT (deep venous thrombosis): Plan: History from patient reveals DVT multiple in legs in past with intolerance to Coumadin with leg swelling. Unsure of timeline as all our Dopplers do not show DVT. - With IVC filter - still in place noted on CT a/p in 10/2020 - On apixaban presently (13) Chronic pain: Plan: Continue on current oxycodone as needed Plan: DVT prophylaxis-now on apixaban Disposition-medically stable for discharge, awaiting placement at SNF Admission and Anticipated Discharge Date Admission Date: March 19, 2021 Subjective Patient reports feeling well, just some chronic pain in left shoulder. Has new weakness in the left hand since this admission. Feels strong in the legs and walked with physical therapy. Denies chest pain or shortness of breath Has occasional headaches for which she reports she takes oxycodone Telemetry with normal sinus rhythm, PACs, rates in the 60s to 70s Review of Systems Review of Systems: All systems reviewed & are unremarkable except as noted in HPI & below Physical Exam Constitutional: WD/WN, vitals as above Eyes: + anicteric sclerae ENMT: external ear and nose normal, oropharynx normal Neck: trachea midline, no thyromegaly Respiratory: normal respiratory effort, lungs clear to auscultation Cardiovascular: RRR, no murmur, no edema Chest (Breasts): Chest: normal inspection of chest Gastrointestinal (Abdomen): normal bowel sounds, soft, nontender, no hepatosplenomegaly Musculoskeletal: Extremities: extremities normal to inspection; no cyanosis and no clubbing Skin: no rashes, warm and dry Neurologic: CN's II-XI intact bilaterally, moves all extremities, + focal motor deficit (3/5 strength in left silverer strength, unable to abduct left shoulder) and awake Psychiatric: A+Ox3, euthymic affect Lymphatic: no lymphedema Results & Data Results & Data ([facility]) Vital Signs (Past 12 Hours) Vital Signs Temp Pulse Pulse Pulse Resp BP Pulse Ox 03/27/21 11:41 36.5 C 59 L 20 121/55 L 97 03/27/21 08:13 36.6 C 63 18 142/65 H 97 03/27/21 07:29 60 03/27/21 03:21 36.6 C 89 18 126/70 93 Laboratory Results 03/27/21 03/27/21 03/27/21 Range/Units 20:06 16:45 11:18 WBC (4.8-10.8) K/uL RBC (4.2-5.4) M/uL Hgb (12.0-16.0) g/dL Hct (37-47) % MCV (80-100) fL MCH (25-34) pg MCHC (32-36) g/dL RDW Std Deviation (36.4-46.3) fL RDW Coeff of [place] (11.5-14.5) % Plt Count (130-400) K/uL MPV (7.4-10.4) fL Sodium (136-145) mmol/L Potassium (3.5-5.1) mmol/L Chloride (98-107) mmol/L Carbon Dioxide (21-32) mmol/L Anion Gap (3-11) BUN (6-23) mg/dl Creatinine (0.6-1.2) mg/dl Est Cr Clr Drug Dosing ml/min Est GFR ( Amer) ml/min Est GFR (Non-Af Amer) ml/min BUN/Creatinine Ratio (10-20) Glucose (70-99(Fasting)) mg/dl POC Glucose 116 H 125 H 200 H (70-99) mg/dl Calcium (8.5-10.1) mg/dl Magnesium (1.7-2.4) mg/dl 03/27/21 03/27/21 03/27/21 Range/Units 07:33 05:54 05:54 WBC 8.17 (4.8-10.8) K/uL RBC 4.04 L (4.2-5.4) M/uL Hgb 12.2 (12.0-16.0) g/dL Hct 36.7 L (37-47) % MCV 90.8 (80-100) fL MCH 30.2 (25-34) pg MCHC 33.2 (32-36) g/dL RDW Std Deviation 44.0 (36.4-46.3) fL RDW Coeff of [place] 13.4 (11.5-14.5) % Plt Count 183 (130-400) K/uL MPV 10.4 (7.4-10.4) fL Sodium 133 L (136-145) mmol/L Potassium 4.2 (3.5-5.1) mmol/L Chloride 99 (98-107) mmol/L Carbon Dioxide 27 (21-32) mmol/L Anion Gap 7 (3-11) BUN 33 H (6-23) mg/dl Creatinine 0.94 (0.6-1.2) mg/dl Est Cr Clr Drug Dosing 50.7 ml/min Est GFR ( Amer) 67.8 ml/min Est GFR (Non-Af Amer) 58.5 ml/min BUN/Creatinine Ratio 35.1 H (10-20) Glucose 170 H (70-99(Fasting)) mg/dl POC Glucose 156 H (70-99) mg/dl Calcium 8.7 (8.5-10.1) mg/dl Magnesium 2.1 (1.7-2.4) mg/dl 03/26/21 Range/Units 20:28 WBC (4.8-10.8) K/uL RBC (4.2-5.4) M/uL Hgb (12.0-16.0) g/dL Hct (37-47) % MCV (80-100) fL MCH (25-34) pg MCHC (32-36) g/dL RDW Std Deviation (36.4-46.3) fL RDW Coeff of [place] (11.5-14.5) % Plt Count (130-400) K/uL MPV (7.4-10.4) fL Sodium (136-145) mmol/L Potassium (3.5-5.1) mmol/L Chloride (98-107) mmol/L Carbon Dioxide (21-32) mmol/L Anion Gap (3-11) BUN (6-23) mg/dl Creatinine (0.6-1.2) mg/dl Est Cr Clr Drug Dosing ml/min Est GFR ( Amer) ml/min Est GFR (Non-Af Amer) ml/min BUN/Creatinine Ratio (10-20) Glucose (70-99(Fasting)) mg/dl POC Glucose 187 H (70-99) mg/dl Calcium (8.5-10.1) mg/dl Magnesium (1.7-2.4) mg/dl PG Care Time/CCT Total # of Minutes Spent Total Time Spent with Patient: Total time spent is greater than 50% in coordination of care (as documented) at patient's floor/unit and/or counseling patient: Coding Level of Care Code 17228 Subseq Hosp Care Lvl 2 Diagnoses CVA (cerebral vascular accident) I63.9 CVA mechanism: unspecified Atrial flutter I48.92 Atrial flutter type: unspecified HTN (hypertension) I10 Hypertension type: essential hypertension Diabetes E11.9 Arthritis M19.90 DJD of shoulder M19.019 CHF (congestive heart failure) I50.9 S/P IVC filter Z95.828 Asthma J45.909 Depression F32.A History of subdural hematoma Z86.79 DVT (deep venous thrombosis) I82.409 Chronic pain G89.29 Chronic pain type: other chronic pain (1) Atrial flutter Atrial flutter type: unspecified Qualified Code(s): I48.92 - Unspecified atrial flutter (2) HTN (hypertension) Hypertension type: essential hypertension Qualified Code(s): I10 - Essential (primary) hypertension (3) CVA (cerebral vascular accident) CVA mechanism: unspecified Qualified Code(s): I63.9 - Cerebral infarction, unspecified (4) Chronic pain Chronic pain type: other chronic pain Qualified Code(s): G89.29 - Other chronic pain
[2021-03-27] MEDS: ROSUVASTATIN CALCIUM 20 MG TAB PO SCH (21:24)
[2021-03-28] MEDS: PANTOprazole 40 MG TAB PO SCH (08:30)
[2021-03-28] MEDS: FUROSEMIDE 20 MG TAB PO SCH (08:31)
[2021-03-28] MEDS: DOCUSATE SODIUM/SENNA 50/8.6MG TAB PO SCH (08:31)
[2021-03-28] MEDS: lisinopril 20 MG TAB PO SCH (08:32)
[2021-03-28] MEDS: carvediloL 12.5 MG TAB PO SCH ×2 (08:33→20:01)
[2021-03-28] MEDS: FERROUS SULFATE 325 MG TAB PO SCH (08:33)
[2021-03-28] MEDS: APIXABAN 5 MG TABLET PO SCH ×2 (08:33→20:01)
[2021-03-28] MEDS: DULoxetine HCL 60 MG CAP PO SCH (08:34)
[2021-03-28] MEDS: POLYETHYLENE (MIRALAX) 17 GM PACK PO SCH ×3 (08:34→20:54)
[2021-03-28] MEDS: INSULIN ASPART PER UNIT SC SCH ×4 (09:04→20:59)
[2021-03-28] MEDS: oxyCODONE HCL IR 5 MG TAB (IMMEDIATE RELEASE) PO PRN ×2 (14:02→20:01)
--- NOTE | 2021-03-28 14:14 | Hospitalist Progress Note ---
Date of Service March 28, 2021 Assessment & Plan (1) CVA (cerebral vascular accident): Plan: Right sided basal ganglial ischemic stroke - acute to subacute. [place] to be embolic given her afib. - Risk factors: HTN, HLD, DM, New onset Afib/Aflutter - Time last known well was 03/18/2021. - Hold ASA/Plavix in lieu of anticoagulation. - MRI: Acute to subacute ischemic stroke within the right basal ganglia/external capsule - Checked lipids in morning - continue rosuvastatin 20mg LDL above goal. - ECHO completed - no PFO. - Speech evaluation -> No need; passed bedside swallow. - Neurology consulted. - Provide stroke education - Insurance denied rehab, but approved SNF. CM working on this. Maybe [facility]. (2) Atrial flutter: Plan: New onset. Has now gone back into sinus. - Continue carvedilol - Continue apixaban (3) HTN (hypertension): Plan: Poorly controlled in the past. BP presently 100/45 - 120/60 in last 24 hours. - Continue carvedilol & lisinopril - Added furosemide on 03/24; monitor Cr (4) Diabetes: Plan: DMII on insulin and metformin at home. A1c this admission was 8.0%. - Defer home long-acting 20 units; believe her intake in the hospital is likely lower than at home. - Sliding scale insulin -> BSs have been 140 - 220 over last 24 hours. (5) Arthritis: Plan: Chronic in left shoulder after shoulder surgery and surgical site infection. - Pain control PRN -> Voltaren gel seems to be working. Will want to be careful with it given she is on anticoagulation. While systemic levels are lower than with oral NSAIDs, still has increased risk of GI bleed and kidney injury. 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 - Left shoulder and arm chronically weak and decrease movement. - Pain control as above. (7) CHF (congestive heart failure): Plan: HFpEF - EF 60-65% in 08/2020. Mild AR and stenosis. - Continue carvedilol and lisinopril - Continue Lasix as above - Appears euvolemic for me today. (8) S/P IVC filter: Plan: Unclear date of implantation, but per report had SDH in 2014, so possibly implanted around then. - Continue anticoagulation (9) Asthma: Plan: No wheezing on exam. - Continue ipratropium/albuterol - Continue Respimat (10) Depression: Plan: Anxiety and Depression with ? HX of Bi-polar - reported by son. - PCP is [facility]- if need to adjust/confirm above dx - Continue duloxetine (11) History of subdural hematoma: Plan: In 2014. Repeat CT heads here do not show any bleeding. - Continue anticoagulation for afib & hx of DVT (12) DVT (deep venous thrombosis): Plan: History from patient reveals DVT multiple in legs in past with intolerance to Coumadin with leg swelling. Unsure of timeline as all our Dopplers do not show DVT. - With IVC filter - still in place noted on CT a/p in 10/2020 - On apixaban presently Admission and Anticipated Discharge Date Admission Date: March 19, 2021 Subjective No issues today. Reports no fevers/chills, chest pain, shortness of breath, abdominal pain, nausea, or vomiting. Left shoulder and right toes are actually somewhat better today. Physical Exam Constitutional: WD/WN, vitals as above Eyes: EOM intact bilaterally; no conjunctival abnormality ENMT: external ear and nose normal, oropharynx normal Neck: trachea midline, no thyromegaly normal visual inspection Respiratory: normal respiratory effort, lungs clear to auscultation no respiratory distress Cardiovascular: RRR, no murmur, no edema Gastrointestinal (Abdomen): Inspection/Auscultation: abdomen normal to inspection; abdomen not distended Musculoskeletal: Shoulder: + shoulder abnormal to inspection (Left in sling; surgical scar present) Skin: no rashes, warm and dry Neurologic: moves all extremities and awake Psychiatric: Orientation: alert, oriented to person and cooperative Results & Data Results & Data ([facility]) Vital Signs (Past 12 Hours) Vital Signs Temp Pulse Pulse Resp BP Pulse Ox 03/28/21 11:27 36.7 C 70 20 121/70 98 03/28/21 08:14 64 03/28/21 07:46 36.9 C 56 L 18 119/57 L 97 03/28/21 07:16 36.8 C 63 14 124/61 95 03/28/21 03:22 36.8 C 61 16 126/63 94 PG Care Time/CCT Total # of Minutes Spent Total Time Spent with Patient: Total time spent is greater than 50% in coordination of care (as documented) at patient's floor/unit and/or counseling patient: Coding Level of Care Code 74999 Subseq Hosp Care Lvl 2 Diagnoses CVA (cerebral vascular accident) I63.9 CVA mechanism: unspecified Atrial flutter I48.92 Atrial flutter type: unspecified HTN (hypertension) I10 Hypertension type: essential hypertension Diabetes E11.9 Arthritis M19.90 DJD of shoulder M19.019 CHF (congestive heart failure) I50.9 S/P IVC filter Z95.828 Asthma J45.909 Depression F32.A History of subdural hematoma Z86.79 DVT (deep venous thrombosis) I82.409 (1) CVA (cerebral vascular accident) CVA mechanism: unspecified Qualified Code(s): I63.9 - Cerebral infarction, unspecified (2) Atrial flutter Atrial flutter type: unspecified Qualified Code(s): I48.92 - Unspecified atrial flutter (3) HTN (hypertension) Hypertension type: essential hypertension Qualified Code(s): I10 - Essential (primary) hypertension
[2021-03-28] MEDS: ROSUVASTATIN CALCIUM 20 MG TAB PO SCH (20:01)
[2021-03-28] MEDS: DICLOFENAC SOD 1% GEL 100 GM TUBE EXT PRN (20:02)
[2021-03-29 06:15] LABS: Hematocrit (blood only) 35.8 % (37-47); Hemoglobin 11.8 g/dL (12.0-16.0); Mean Corpuscular Hemoglobin 30.4 pg (25-34); Mean Corpuscular Volume 92.3 fL (80-100); Mean Platelet Volume 10.8 fL (7.4-10.4); Platelet Count 190 K/uL (130-400); RDW Coefficient of Variation 13.5 % (11.5-14.5); Red Blood Count 3.88 M/uL (4.2-5.4); White Blood Count 7.89 K/uL (4.8-10.8)
[2021-03-29 06:33] LABS: BUN Creatinine Ratio 37.9 (10-20); Calcium 8.9 mg/dl (8.5-10.1); Creatinine Clr Calc Pharmacy 50.2 ml/min; Est GFR (Non-African American) 57.8 ml/min; Magnesium 1.7 mg/dl (1.7-2.4); Potassium 4.2 mmol/L (3.5-5.1)
[2021-03-29] MEDS: PANTOprazole 40 MG TAB PO SCH (08:13)
[2021-03-29] MEDS: DULoxetine HCL 60 MG CAP PO SCH (08:14)
[2021-03-29] MEDS: carvediloL 12.5 MG TAB PO SCH ×2 (08:14→20:20)
[2021-03-29] MEDS: lisinopril 20 MG TAB PO SCH (08:14)
[2021-03-29] MEDS: APIXABAN 5 MG TABLET PO SCH ×2 (08:14→20:19)
[2021-03-29] MEDS: FUROSEMIDE 20 MG TAB PO SCH (08:14)
[2021-03-29] MEDS: FERROUS SULFATE 325 MG TAB PO SCH (08:15)
[2021-03-29] MEDS: DOCUSATE SODIUM/SENNA 50/8.6MG TAB PO SCH (08:15)
[2021-03-29] MEDS: INSULIN ASPART PER UNIT SC SCH ×4 (08:20→20:18)
--- NOTE | 2021-03-29 10:56 | Hospitalist Progress Note ---
Date of Service March 29, 2021 Assessment & Plan (1) CVA (cerebral vascular accident): Plan: Right sided basal ganglial ischemic stroke - acute to subacute. Hope to be embolic given her afib. - Risk factors: HTN, HLD, DM, New onset Afib/Aflutter - Time last known well was 03/18/2021. - Hold ASA/Plavix in lieu of anticoagulation. - MRI: Acute to subacute ischemic stroke within the right basal ganglia/external capsule - Checked lipids in morning - continue rosuvastatin 20mg LDL above goal. - ECHO completed - no PFO. - Speech evaluation -> No need; passed bedside swallow. - Neurology consulted. - Provide stroke education - Insurance denied rehab, but approved SNF. CM working on this. [facility]. Also looking out of [facility]. (2) Atrial flutter: Plan: New onset. Has now gone back into sinus. - Continue carvedilol - Continue apixaban (3) HTN (hypertension): Plan: Poorly controlled in the past. BP presently 100/45 - 120/60 in last 24 hours. - Continue carvedilol & lisinopril - Added furosemide on 03/24; monitor Cr; stable (4) Diabetes: Plan: DMII on insulin and metformin at home. A1c this admission was 8.0%. - Defer home long-acting 20 units; believe her intake in the hospital is likely lower than at home. - Sliding scale insulin -> BSs have been 115 - 165 over last 24 hours. (5) Arthritis: Plan: Chronic in left shoulder after shoulder surgery and surgical site infection. - Pain control PRN -> Voltaren gel seems to be working. Will want to be careful with it given she is on anticoagulation. While systemic levels are lower than with oral NSAIDs, still has increased risk of GI bleed and kidney injury. 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 - Left shoulder and arm chronically weak and decrease movement. - Pain control as above. (7) CHF (congestive heart failure): Plan: HFpEF - EF 60-65% in 08/2020. Mild AR and stenosis. - Continue carvedilol and lisinopril - Continue Lasix as above - Appears euvolemic for me today. (8) S/P IVC filter: Plan: Unclear date of implantation, but per report had SDH in 2014, so possibly implanted around then. - Continue anticoagulation (9) Asthma: Plan: No wheezing on exam. - Continue ipratropium/albuterol - Continue Respimat (10) Depression: Plan: Anxiety and Depression with ? HX of Bi-polar - reported by son. - PCP is [facility]- if need to adjust/confirm above dx - Continue duloxetine (11) History of subdural hematoma: Plan: In 2014. Repeat CT heads here do not show any bleeding. - Continue anticoagulation for afib & hx of DVT (12) DVT (deep venous thrombosis): Plan: History from patient reveals DVT multiple in legs in past with intolerance to Coumadin with leg swelling. Unsure of timeline as all our Dopplers do not show DVT. - With IVC filter - still in place noted on CT a/p in 10/2020 - On apixaban presently Admission and Anticipated Discharge Date Admission Date: March 19, 2021 Subjective No issues today. Some left shoulder pain. Toes feeling better. Reports no fevers/chills, chest pain, shortness of breath, abdominal pain, nausea, or vomiting. Physical Exam Constitutional: WD/WN, vitals as above Eyes: EOM intact bilaterally; no conjunctival abnormality ENMT: external ear and nose normal, oropharynx normal Neck: trachea midline, no thyromegaly normal visual inspection Respiratory: normal respiratory effort, lungs clear to auscultation no respiratory distress Cardiovascular: RRR, no murmur, no edema Gastrointestinal (Abdomen): Inspection/Auscultation: abdomen normal to inspection; abdomen not distended Musculoskeletal: Shoulder: + shoulder abnormal to inspection (Left in sling; surgical scar present) Skin: no rashes, warm and dry Neurologic: moves all extremities and awake Psychiatric: Orientation: alert, oriented to person and cooperative Results & Data Results & Data ([facility]) Vital Signs (Past 12 Hours) Vital Signs Temp Pulse Pulse Resp BP Pulse Ox 03/29/21 07:37 57 L 03/29/21 07:00 36.4 C L 58 L 18 122/70 95 03/29/21 03:46 36.5 C 58 L 18 91/47 L 95 03/28/21 23:34 36.5 C 56 L 18 112/63 96 PG Care Time/CCT Total # of Minutes Spent Total Time Spent with Patient: Total time spent is greater than 50% in coordination of care (as documented) at patient's floor/unit and/or counseling patient: Coding Level of Care Code 56367 Subseq Hosp Care Lvl 2 Diagnoses CVA (cerebral vascular accident) I63.9 CVA mechanism: unspecified Atrial flutter I48.92 Atrial flutter type: unspecified HTN (hypertension) I10 Hypertension type: essential hypertension Diabetes E11.9 Arthritis M19.90 DJD of shoulder M19.019 CHF (congestive heart failure) I50.9 S/P IVC filter Z95.828 Asthma J45.909 Depression F32.A History of subdural hematoma Z86.79 DVT (deep venous thrombosis) I82.409 (1) CVA (cerebral vascular accident) CVA mechanism: unspecified Qualified Code(s): I63.9 - Cerebral infarction, unspecified (2) Atrial flutter Atrial flutter type: unspecified Qualified Code(s): I48.92 - Unspecified atrial flutter (3) HTN (hypertension) Hypertension type: essential hypertension Qualified Code(s): I10 - Essential (primary) hypertension
[2021-03-29] MEDS: POLYETHYLENE (MIRALAX) 17 GM PACK PO SCH ×2 (12:03→20:18)
[2021-03-29] MEDS: oxyCODONE HCL IR 5 MG TAB (IMMEDIATE RELEASE) PO PRN ×2 (14:04→20:19)
[2021-03-29] MEDS: MELATONIN 3 MG TAB PO PRN (20:18)
[2021-03-29] MEDS: ROSUVASTATIN CALCIUM 20 MG TAB PO SCH (20:21)
[2021-03-30] MEDS: PANTOprazole 40 MG TAB PO SCH (08:19)
[2021-03-30] MEDS: lisinopril 20 MG TAB PO SCH (08:20)
[2021-03-30] MEDS: FERROUS SULFATE 325 MG TAB PO SCH (08:20)
[2021-03-30] MEDS: DULoxetine HCL 60 MG CAP PO SCH (08:22)
[2021-03-30] MEDS: carvediloL 12.5 MG TAB PO SCH (08:22)
[2021-03-30] MEDS: DOCUSATE SODIUM/SENNA 50/8.6MG TAB PO SCH (08:22)
[2021-03-30] MEDS: APIXABAN 5 MG TABLET PO SCH (08:23)
[2021-03-30] MEDS: INSULIN ASPART PER UNIT SC SCH ×2 (08:36→12:15)
[2021-03-30] MEDS: oxyCODONE HCL IR 5 MG TAB (IMMEDIATE RELEASE) PO PRN ×2 (08:49→13:37)
[2021-03-30] MEDS: POLYETHYLENE (MIRALAX) 17 GM PACK PO SCH (08:52)
[2021-03-30] MEDS: FUROSEMIDE 20 MG TAB PO SCH (10:20)
--- NOTE | 2021-03-30 13:57 | Discharge Summary ---
Date of Service March 30, 2021 Admission HPI Per Admitting Provider 76 YOF with past medical history of: Chronic back/shoulder pain, DM II (on insulin), Galeas's palsy, DVT (on Coumadin in the 60-70's? intolerance), asthma, HTN, shoulder replacement with infection requiring removal of hardware, HFpEF. Patient was brought to the EMD today via EMS for evaluation of weakness and inability to get up from floor. Patient was attempting to get in bed last PM and was unable to get her leg up into bed (she is unsure of which leg) or use her arms to pull herself into bed, so she grabbed a blanket and a pillow and slept on the floor, she was found this morning by her son, who comes over every day to make sure she has taken her medications. She presented to the EMD and had workup for CVA with CT scan of head and CTA of the head and neck performed. This revealed 2.2CM right sided basal ganglial ischemic stroke without hemorrhage or midline shift. She is on ASA and Plavix for what appears to be intolerance to Coumadin secondary to multiple DVTs. Hospitalist was consulted for admission. Upon evaluation telemetry also appeared to reveal afib/aflutter on the monitor, this is new for her. ECG was performed which is irregular narrow complex variable aflutter vs. afib. This may have attributed to her CVA as well. Patient will be admitted to medical telemetry unit, continue to CVA workup to include MRI and ECHO, follow on telemetry overnight. Will place on heparin drip no bolus low dose protocol for her Aflutter vs. Afib. Patient symptoms may have started on Friday following discussion with the son, as she exhibited some worsening of her facial droop and slurring of words. This was attributed to her previous history of Galeas's palsy, the patient states that she may have felt her left arm and leg be weaker through Friday and Friday, but last night was unable to get in bed. She is a difficult historian and also has had difficulties with medication compliance at home. She now has a home health nurse that comes and prepares her medications throughout the week for her and her son stops over every morning to make sure she has taken them. Patient denies any visual changes and difficult to elicit an visual field defects, she feels her speech may be a little more slurred than normal, she took her medications this morning without any difficulty swallowing she states. Evaluate with bedside swallow as well as speech therapy evaluation. Patient COVID test on admission is: NEGATIVE Admission Exam Per Admitting Provider PHYSICAL EXAM: General: awake, alert, no apparent distress Head: Normocephalic, atraumatic ENT: Neuro: AAO x 3, PEERLA, vision intact without visual filed deficit appreciated, Tongue midline, difficulty puffing out cheeks, right facial droop, left arm weakness 3/5, sensory and motor intact speech clear and appropriate, sensation intact and equal all extremities and dermatomes, no difficulty reading, mild slurring of words Chest: equal rise and fall of the chest, no accessory muscle use, no heaves or thrills, Clear to auscultation, on room air, Cardiac: Regular rate and rhythm, telemetry reviewed (Afib/Aflutter), skin warm dry, cap refill <3 seconds, peripheral pulses +2 no JVD, no murmur, no edema GI: NABS x 4 quadrants, soft, nontender to palpation, no rebound, guarding or tenderness : Spontaneously voiding, no pain, no CVA tenderness, Extremities: Normal inspection, no peripheral edema or erythema, calfs nontender to palpation Psych: Normal mood and affect Skin: well healing ulcerations to right toes Principal Diagnosis Acute to subacute right sided basal ganglial ischemic stroke Discharge Exam GENERAL : No acute distress. Some slurred speech. EYES: No icterus, gaze conjugate. Pupils equal round and reactive to light NOSE: No evidence of epistaxis MOUTH: No lesions or candidiasis. Mucosa is moist NECK: Supple LUNGS: CTA B/L, no wheezes, rales or rhonchi HEART: Regular, rate controlled ABDOMEN: Soft, NT, ND, BS Present EXTREMITIES: No LE edema, pedal pulses intact NEURO: A&OX3 Discharge Data Allergies Allergy/AdvReac Type Severity Reaction Status Date / Time Cephalosporins Allergy Intermediate RINGING OF Verified 03/19/21 10:41 EARS,FALLING BALANCE ISSUES prochlorperazine Allergy Intermediate STROKE Verified 03/19/21 10:41 LIKE SYMPTOMS, CAN'T TALK linezolid AdvReac Intermediate diarrhea,vo Verified 03/19/21 10:41 miting tramadol AdvReac Intermediate UNSTEADY Verified 03/19/21 10:41 ON FEET, HYPERACTIVITY morphine AdvReac Unknown NOT Verified 03/19/21 10:41 EFFECTIVE Consultations 03/19/21 14:25 ED Decision to Admit Stat 03/19/21 21:52 Consult Neurology Routine Consult Neurology Routine Ordered Studies 03/19/21 10:50 CT angio head w con Stat CT angio neck with con Stat CT head/brain wo con Stat 03/19/21 16:30 MR brain wo con Routine 03/21/21 10:07 CT head/brain wo con Routine Hospital Course (1) CVA (cerebral vascular accident): Right sided basal ganglial ischemic stroke- acute to subacute - Risk factors: HTN, HLD, DM, New onset Afib/Aflutter - Time last known well was either last night (03/18/21 or Friday) - Hold asa/Plavix in lieu of heparin drip- transitioned to oral DOAC using apixaban 5 mg p.o. twice daily. We will continue this on discharge - MRI with no evidence of hemorrhagic transformation - Lipids in morning- continue rosuvastatin 20mg- adjust based on lipid profile - ECHO similar to 09/08/2020. No evidence of thrombus - allow for permissive HTN - Speech evaluation for swallow eval. Patient passed dysphagia screening. No formal acute [employer] intervention - Neurology consult with Dr. Albarran -Patient was monitored on telemetry with no acute arrhythmias (2) HTN (hypertension): Poorly controlled in the past - currently stable Antihypertensives resumed (3) Arthritis: Chronic (4) DJD of shoulder: With history of removal of hardware and joint secondary to replacement - left shoulder and arm chronically weak and decrease movement -Continue sling 02/09 -May benefit from continued PT/OT -Continue diclofenac with adjuvant use of pantoprazole (5) DVT (deep venous thrombosis): History from patient reveals DVT multiple in legs in past with intolerance to Coumadin with leg swelling - With IVC filter- still in place noted on CT abdomen and Pelvis 10/31 Continue with apixaban 5 mg p.o. twice daily for new onset atrial fibrillation (6) CHF (congestive heart failure): HFpEF- EF 60-65% No wall motion abnormalities mild AR and stenosis- follow with holding of CLEMENT - Continue Carvedilol 12.5mg BID and lisinopril 20 mg p.o. daily (7) Chronic pain: Continue diclofenac hold hydromorphone Continue pantoprazole for GI prophylaxis (8) S/P IVC filter: As above - (9) Asthma: Continue ipratropium/albuterol - Continue Respimat -No bronchospasm on exam on day of discharge (10) Diabetes: DMII on Insulin and Metformin at home - HGB A1c 8% Continue usual home medications (11) Depression: Anxiety and Depression with ? HX of Bi-polar- reported by son - PCP is [facility]- if need to adjust/confirm above dx - Continue Duloxetine Disposition: Transfer to [facility] today. Total Time Total Time Spent Total Time Spent (In Minutes): 60 minutes Total Time Includes: Examination of the Patient, Discharge Planning, Medication Reconciliation, Communication With Other Providers and Other Discharge Plan Discharge Items Patient Disposition: Transfer Inpatient Rehab Fac Reason For Visit: WEAKNESS Discharge Diagnosis: hemorrahgic stroke Activity: Resume your previous activity Lifting: Gradually increase as tolerated Lifting Comment: Weight limitations to left shoulder as tolerated. Continue with left sling Bathing: No limitations Exercise/Sports: Gradually increase as tolerated Weightbearing: Full weightbearing Non-emergency contact: Primary Care Provider Call non-emergency contact if: you have any medication questions Follow-up/Referrals: Radha Gonzalez CRNP [Primary Care Provider] - Diet: Carb Consistent or DM2 Diet Texture: Easy to Chew Addtl Attending Provider Instructions: Risk Factors for Stroke: You can reduce your chances of stroke by working with your medical provider to adopt a healthy lifestyle. Some specific ways to lower your chance of stroke are: * If you are a smoker, now is the time to stop smoking cigarettes * If you are diabetic, improve the control of your blood sugars * Avoid excessive amounts of alcohol * Control high blood pressure * Lose weight if you are overweight * Be sure to lead an active lifestyle * Eat a healthy diet low in salt, cholesterol and fat You should know about other risk factors for stroke that you are unable to control. These include: * Age 55 years or older * Male gender * Certain racial groups: , or / * Family History of Stroke, Mini stroke or Heart Attack * Sickle Cell Disease Follow Up: It is important for you to keep your follow up appointments with your medical provider. Who to Call and When: Medical Emergencies: Call 911 immediately if you experience any of the following warning signs and symptoms of Stroke: * Sudden numbness or weakness of the face, arm or leg, especially on one side of the body * Sudden confusion, trouble speaking or understanding * Sudden trouble seeing in one or both eyes * Sudden trouble walking, dizziness, loss of balance or coordination * Sudden severe headache with no cause Do not delay calling 911 if you experience any warning signs or symptoms of a stroke. Delay in seeking medical attention may affect what treatments can be given to you. Switched plavix to Eliquis . Pending Studies at Discharge: No Stand-Alone Forms: My [facility] Skilled Items Patient informed of condition?: No DNR: Yes Discharge Level of Care: Acute rehab Communicable Disease: No Discharge Prognosis: Stable Lines: None Urinary Catheter: No Medications and DC Order Prescriptions: New Eliquis 5 mg Tablet 5 mg PO BID Qty: 60 RF: 0 oxycodone 5 mg Tablet 15 mg PO Q4H PRN (Reason: severe pain) Qty: 30 RF: 0 Continued pantoprazole 40 mg Tablet,Delayed Release (Dr/Ec) 40 mg PO QAM RF: 0 ferrous sulfate 325 mg (65 mg iron) Tablet 325 mg PO QAM RF: 0 duloxetine 60 mg Capsule,Delayed Release(Dr/Ec) 60 mg PO QAM RF: 0 potassium gluconate 595 mg (99 mg) Tablet 595 mg PO QAM RF: 0 melatonin 5 mg Tablet 10 mg PO HS RF: 0 magnesium oxide 500 mg capsule 500 mg PO QAM RF: 0 diclofenac sodium 1 % gel 2 g topical BID PRN (Reason: pain) Qty: 100 RF: 2 rosuvastatin 20 mg tablet 20 mg PO HS RF: 0 carvedilol 12.5 mg tablet 12.5 mg PO BID RF: 0 ipratropium-albuterol 0.5 mg-3 mg(2.5 mg base)/3 mL solution for nebulization 3 ml INHALATION QID PRN (Reason: Shortness Of Breath Or Wheezing) RF: 0 metformin 500 mg tablet extended release 24 hr 500 mg PO DAILY RF: 0 Combivent Respimat 20-100 mcg/actuation mist 1 puff INHALATION QID RF: 0 furosemide 20 mg tablet 20 mg PO DAILY 30 Days Qty: 30 RF: 0 lisinopril 40 mg Tablet 20 mg PO QAM 30 Days Qty: 15 RF: 0 Levemir FlexTouch U-100 Insuln 100 unit/mL (3 mL) insulin pen 20 unit SUBCUT QAM Qty: 0 RF: 0 Discontinued clonidine HCl 0.1 mg Tablet 0.1 mg PO BID RF: 0 clopidogrel 75 mg Tablet 75 mg PO QAM RF: 0 aspirin [Aspirin Low Dose] 81 mg Tablet,Delayed Release (Dr/Ec) 81 mg PO QAM RF: 0 hydromorphone 4 mg tablet 4 mg PO 5XD PRN (Reason: Pain) RF: 0 aspirin 325 mg Tablet 650 mg PO TID PRN (Reason: pain) Qty: 0 RF: 0 Discharge Orders: Discharge Order (Routine); Ordered 03/30/21 Ordered By: Stuart Gray/Other Patient Handouts: Managing Type 2 Diabetes Admission Data Admit Date/Time: 03/19/21 17:17 Attending Provider: Brian Zee Admit Provider: Peter Martinez Primary Care Provider: Radha Gonzalez Other Providers: Indra Albarran ; [facility] ; Rudolph Anderson ; [facility]mani May [facility] [place] ; [facility] ; [facility] Supervising Physician Co-Signing Physician Notes chart reviewed, case d/w E Laureen PAC seen briefly - but was sleeping comfortly awaiting placement - approved today. CVA - as above for SNF/rehab Coding Level of Care Code D/C DAY MANAGEMENT >30 MINS Diagnoses CVA (cerebral vascular accident) I63.9 CVA mechanism: unspecified HTN (hypertension) I10 Hypertension type: essential hypertension Arthritis M19.90 DJD of shoulder M19.019 DVT (deep venous thrombosis) I82.409 CHF (congestive heart failure) I50.9 Chronic pain G89.29 Chronic pain type: other chronic pain S/P IVC filter Z95.828 Asthma J45.909 Diabetes E11.9 Depression F32.A
[2021-03-30] MEDS ORDERED: STROKE PATIENT DISCHARGE STA (13:59)
== END 2021-03-30 15:48 | DRG 65 ==
LOC: ED 09:46 → SUATTDRO 17:17 → EDINP 17:17 → 2N 19:28
DX: G89.29 Other chronic pain; E11.9 Type 2 diabetes mellitus without complications; I48.91 Unspecified atrial fibrillation; Z86.718 Personal history of other venous thrombosis and embolism; M19.012 Primary osteoarthritis, left shoulder; Z79.84 Long term (current) use of oral hypoglycemic drugs; E87.6 Hypokalemia; E78.5 Hyperlipidemia, unspecified; Z88.8 Allergy status to other drugs, medicaments and biological substances; J45.909 Unspecified asthma, uncomplicated; Z79.51 Long term (current) use of inhaled steroids; I63.9 Cerebral infarction, unspecified; Z79.4 Long term (current) use of insulin; I11.0 Hypertensive heart disease with heart failure; F41.9 Anxiety disorder, unspecified; Z88.5 Allergy status to narcotic agent; G81.94 Hemiplegia, unspecified affecting left nondominant side; Z79.02 Long term (current) use of antithrombotics/antiplatelets; I50.32 Chronic diastolic (congestive) heart failure; I35.2 Nonrheumatic aortic (valve) stenosis with insufficiency; I48.92 Unspecified atrial flutter; F32.A Depression, unspecified; Z79.891 Long term (current) use of opiate analgesic; Z95.828 Presence of other vascular implants and grafts